=== PATIENT | female | born 1950 | race Caucasian/White ===

== ENCOUNTER → 2017-08-15 08:55 | Outpatient (CLI) | payer OTHER, SELFPAY ==
--- NOTE | 2017-08-15 09:01 | RAD_ITS ---
STUDY: X-RAY - RIGHT KNEE REASON FOR EXAM: Medial knee pain, no specific injury. TECHNIQUE: 4 view(s) of the knee. COMPARISON: None. FINDINGS: Normal visualized distal femur. Normal visualized proximal tibia and fibula. Normal proximal tibiofibular articulation. Normal medial femorotibial compartment. Normal lateral femorotibial compartment. Normal patellofemoral articulation. The soft tissue structures are unremarkable. RAD/Knee 4 or More Views IMPRESSION: Normal x-ray examination of the right knee. Electronically Signed: Mitul Veronica MD at 16:15 EDT Tel , Service support ,
== END ==
PROVIDERS: Family Provider Family Medicine; PCP Family Medicine; Visit Provider Orthopaedic Surgery
DX: M25.561 Pain in right knee (principal)
CPT/HCPCS: 73564

== ENCOUNTER → 2017-08-18 18:28 | Outpatient (CLI) | payer OTHER, SELFPAY ==
[2017-08-18 18:30] LABS: Bacteria 0 SEEN /hpf (None Seen); Mucous, Urine 0 SEEN /hpf (<or=2+)
[2017-08-18 19:10] LABS: Color, Urine Yellow (Yellow); Glucose, Dipstick Normal (Normal); Ketone-Dipstick Negative (Negative); Leukocyte Esterase-Dipstick 100 /ul (Negative); Nitrite-Dipstick Negative (Negative); Occult Blood-Urine 25 /ul (Negative); Protein-Dipstick Negative (Negative); Urine Bilirubin Dipstick Negative (Negative); Urine Clarity Clear (Clear); Urine Urobilinogen Normal (Normal)
[2017-08-18 19:21] LABS: White Blood Cells 10-25 SEEN /hpf (0-5)
[2017-08-18 19:22] LABS: Squamous Epithelial Cells - UA 0-5 SEEN /hpf (5-10)
== END ==
PROVIDERS: Family Provider Family Medicine; PCP Family Medicine; Visit Provider Physician Assistant Surgical
DX: R30.0 Dysuria (principal)
CPT/HCPCS: 81001; 87086; 87088; 87186

== ENCOUNTER → 2017-08-27 07:20 | Outpatient (CLI) | payer OTHER, SELFPAY ==
--- NOTE | 2017-08-27 07:24 | MRI_ITS ---
STUDY: MRI RIGHT KNEE REASON FOR EXAM: Medial pain on and off for 2 years, difficulty bending. TECHNIQUE: Standardized fat and water weighted pulse sequences were obtained in all 3 orthogonal planes. COMPARISON: Radiographs 08/15/2017. FINDINGS: Normal medial meniscus. Normal hyaline cartilage of the medial femorotibial compartment. Normal medial femoral condyle and tibial plateau. Normal medial collateral ligamentous complex (MCL). Normal distal semimembranosus, gracilis and semitendinosus tendons. Normal lateral meniscus. Normal hyaline cartilage of the lateral femorotibial compartment. Normal lateral femoral condyle and tibial plateau. Normal proximal tibiofibular articulation. Normal lateral collateral (fibular) ligament. Normal popliteus tendon. Normal biceps femoris tendon. Normal anterior cruciate ligament (ACL). Normal posterior cruciate ligament (PCL). Normal congruent patellofemoral articulation. There is low-grade chondromalacia patellae (T2 axial image 9). Normal medial and lateral patellar retinaculum. Normal visualized quadriceps tendon. Normal patellar tendon. Normal Hoffa's fat pad. There is a minimal volume of fluid in the knee joint. There is a thin medial patellar plica. There is an elongated popliteal cyst (T2 sagittal images 12-21). There is mild bone edema in the proximal tibia at the insertion site of the anterior cruciate ligament. MRI/Lower Ext Joint Only (Routine) IMPRESSION: Low-grade chondromalacia patellae. Popliteal cyst. No demonstrated medial meniscal tear. Electronically Signed: Mitul Veronica MD at 8:58 EDT Tel , Service support ,
== END ==
PROVIDERS: Family Provider Family Medicine; PCP Family Medicine; Visit Provider Orthopaedic Surgery
DX: S83.241A Other tear of medial meniscus, current injury, right knee, initial encounter (principal)
CPT/HCPCS: 73721

== ENCOUNTER → 2017-09-04 13:51 | Outpatient (CLI) | payer OTHER, SELFPAY ==
[2017-09-04 15:45] LABS: Absolute Neutrophil Count 1.5 X10^3/uL (2.0-7.7); Basophil# 0.03 X10^3/uL; Basophil% 0.7 % (0-1); Eosinophil# 0.06 X10^3/uL; Eosinophils% 1.4 % (0-5); Hematocrit 37.1 % (37-47); Hemoglobin 12.7 g/dl (12.0-15.0); Lymphocyte % 56.4 % (19-41); Mean Corp Hgb Conc 34.2 g/gl (32-36); Mean Corpuscular Hgb 28.9 pg (27.0-32.0); Mean Corpuscular Volume 84.5 fL (81-99); Mean Platelet Vol. 9.6 fl (6.2-12.0); Monocyte# 0.38 X10^3/uL; Monocyte% 8.6 % (0-10); Neutrophil # 1.45 X10^3/uL (2.7-7.7); Neutrophil % 32.7 % (47-70); Platelet Count 212 K/mm3 (150-450); RBC Distribution Width CV 13.8 % (11.6-14.6); RBC Distribution Width SD 42.2 fl (35.1-43.9); Red Blood Count 4.39 M/mm3 (4.2-5.4); White Blood Count 4.4 K/mm3 (4.4-11.0)
[2017-09-04 15:53] LABS: POSITIVE COUNT NO; POSITIVE DIFFERENTIAL NO; POSITIVE MORPHOLOGY NO
[2017-09-04 16:01] LABS: Ferritin 116 ng/mL (8-252)
[2017-09-09 11:04] LABS: Endomysial Antibody IgA Negative (Negative); Immunoglobulin A 233 mg/dL (87-352); t-Transglutaminase IgA <2 U/mL (0-3)
== END ==
PROVIDERS: Family Provider Family Medicine; PCP Family Medicine; Visit Provider Family Medicine
DX: R11.10 Vomiting, unspecified (principal)
CPT/HCPCS: 36415; 82728; 82784; 83516; 85025; 86255

== ENCOUNTER 2017-09-30 16:30 | Outpatient (RCR) | payer OTHER, SELFPAY ==
--- NOTE | 2017-09-10 17:00 | HP.PTEVAL_ITS ---
Patient's Visit Information ALIE SALMERON is a 67 year old F referred to Physical Therapy by Nayla Odom DO with a diagnosis of R knee chondromalcia/PF -OA. Date of Evaluation: 09/10/17 Physical Therapist: Cynthia Marte - Visit Plan Frequency: 2x /Week Duration: 6 Weeks Plan: 2X/ week for 6 weeks for R hip and knee strength, R knee AROM, US to R medial joint line to decrease pain and inflammation with HEP. Pt would eventually like to get a H&W routine for her knee..... - Subjective Subjective: Pt reports that when she went to the Dr she could not bend it and it was pain along the anterior medial part of the knee. Pt got a cortizone shot in the R knee last week. She reports that she had some pain along the underside of the knee cap today. She did x-ray (no arthritis) and MRI (bakers cyst and wear under knee cap). saw a black spot the size of an eraser that she is thinking could be a tear that is healed. 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 She does some floor stuff, biking, wood chopping, pull downs. Going to try leg press on Friday and she does the abd/add machines and sometimes the TM. The R knee becomes aggrevated with the TM and walking the dog, gas pedel. Pt is taking a long bike ride (340 miles about 40 miles/day over 8 days) this summer and she wants to strenghen. The shot has def has helped. - Pain R knee pain Pain Intensity (Out of 10): 1 - Objective Gait: walks with slight decrease stance time on the L LE. R knee AROM: -1 degree to 121 degrees. L knee AROM: 0-134 degrees. LE MMT: hip flex B 4-/5, hip abd R 4-/5 and L 4/5, hip ext B 4-/5, knee flexion 4-/5, knee ext R 4-/5 and L 4/5. Tight B Quad with R being worse than L. palpation: tender along the R medial joint line. No tenderness pes ans area. - Goals Goal 1:: I HEP Goal Time Frame: 4-6 Weeks Goal 2:: Increase R knee AROM 0- 130 degrees knee flexion Goal Time Frame: 4-6 Weeks Goal 3:: Increase R hip and knee strength by 1/2 muscle grade (LE MMT at time of eval: LE MMT: hip flex B 4-/5, hip abd R 4-/5 and L 4/5, hip ext B 4-/5, knee flexion 4-/5, knee ext R 4-/5 and L 4/5) Goal Time Frame: 4-6 Weeks - Rehabilitation Potential Rehabilitation Potential: Good - Anticipated Interventions Patient/Client Instruction: Educate patient on: Condition, Plan of Care For the Purpose of:: To decrease pain, To decrease swelling/inflammation, To increase ROM, To improve nutrient delivery to tissue, To improve muscle performance and motor function, To improve ability to perform ADL's, To increase tolerance to activity/condition/position, To improve performance and independence with ADL's, To improve ability of physical actions for home/ community/work/leisure, To improve gait and locomotor functions, To improve health of tissue, To decrease soft tissue restriction, To increase flexibility/ ROM Therapeutic Exercise to Include: Strength training, Flexibilty training, Gait and locomotor training, Passive ROM, Active ROM For the Purpose of:: To decrease pain, To decrease swelling/inflammation, To increase ROM, To improve nutrient delivery to tissue, To improve muscle performance and motor function, To increase tolerance to activity/condition/ position, To improve gait and locomotor functions, To improve health of tissue, To decrease soft tissue restriction, To increase flexibility/ROM Cryotherapy (ice pack, ice massage): Yes Thermo therapy (hot pack): Yes Ultrasound (thermal/non thermal): Yes For the Purpose of:: To decrease pain, To decrease swelling/inflammation, To increase ROM, To improve nutrient delivery to tissue, To improve muscle performance and motor function, To increase tolerance to activity/condition/ position, To improve health of tissue, To decrease soft tissue restriction, To increase flexibility/ROM Thank you for the opportunity to evaluate your patient. For Medicare and Medicare HMO plans, please review the plan of care and approve it. It will need to be FAXED BACK to us at [phone] for Medicare purposes. Please let me know if there are questions or concerns regarding this plan of care. Physician Signature: Date:
--- NOTE | 2017-09-30 17:30 | HP.PTDCSUM_ITS ---
HP - PT D/C Summary It has been my pleasure to treat ALIE SALMERON under orders from Nayla Odom DO, for the diagnosis of R knee chondromalcia/PF -OA for a total of 6 visit(s). Discharge Date: 09/30/17 Please see the following information for a summary of their discharge status. - Subjective Subjective: Sitting here there is no pain. Rode bike 7 miles yesterday and pushed it and was not too bad afterwards. - Pain R knee pain Pain Intensity (Out of 10): N/A - Overall Improvement % Improvement: 90 - Objective Objective/Function: 0-131 degrees R knee flexion - Goals Goal 1:: I HEP Goal Progress: Goal Met Goal 2:: Increase R knee AROM 0- 130 degrees knee flexion Goal Progress: Goal Met Goal 3:: Increase R hip and knee strength by 1/2 muscle grade (LE MMT at time of eval: LE MMT: hip flex B 4-/5, hip abd R 4-/5 and L 4/5, hip ext B 4-/5, knee flexion 4-/5, knee ext R 4-/5 and L 4/5) Goal Progress: Goal Met - Plan Plan: DC PT to [facility] and some H&W gym rountine. Pt to continue to train on her bike and work up to desired miles, - D/C Information Discharge Comments: DC PT to [facility] and I H&W [employer] rountine If there are questions or concerns regarding this patient's physical therapy, please feel free to call me at [phone]. Thank you for the referral of this patient. Sincerely, Cynthia Marte
== END 2017-09-30 19:00 | disposition home or self-care (01) ==
LOC: PT 16:30
PROVIDERS: Family Provider Family Medicine; PCP Family Medicine; Visit Provider Orthopaedic Surgery
DX: M94.261 Chondromalacia, right knee (principal); M17.11 Unilateral primary osteoarthritis, right knee
CPT/HCPCS: 97035; 97110; 97161; 97530

== ENCOUNTER → 2017-12-02 12:27 | Outpatient (CLI) | payer OTHER, SELFPAY ==
--- NOTE | 2017-12-02 12:29 | BI_ITS ---
MAMMOGRAPHY - BILATERAL SCREENING REASON FOR EXAM: Female, 67 years old. Routine annual screening examination. PERTINENT HISTORY: Aunt with breast cancer. Occasional right lateral breast pain. TECHNIQUE: Digital bilateral breast lissa (3D mammographic acquisition) in the CC and MLO projections. 2-D mediolateral oblique (MLO) and craniocaudad (CC) views of both breasts were obtained. CAD: Full Field Digital Mammography with Computer Added Detection was performed. COMPARISON: Comparison is made with prior study dated September 17, 2016 and January 20, 2014. FINDINGS: Breast Composition: The breasts are heterogeneously dense, which may obscure small masses. There are no dominant masses or suspicious calcifications. A tissue clip marker is seen in the upper lateral portion of the left breast. No other significant abnormalities are identified. There has been no significant change since the prior study. BI/SCREENING MAMM (CAD), BILAT IMPRESSION: Stable bilateral screening mammogram. Yearly follow-up mammogram recommended. (A) ASSESSMENT CATEGORY: BIRADS Category 2: Benign. A letter regarding these results will be sent to the patient by the facility within 30 days. Approximately 10% of breast cancers are not detected by mammography. A normal mammogram should not delay biopsy of a clinically suspicious abnormality. [id number] Electronically Signed: Lewis Huerta MD at 14:43 EDT Tel [phone], Service support ,
--- NOTE | 2017-12-02 12:34 | BD_ITS ---
STUDY: DUAL ENERGY X-RAY ABSORPTIOMETRY / DXA REASON FOR EXAM: Female, 67 years old. The patient is postmenopausal. No loss of height. TECHNIQUE: Bone Mineral Density (BMD) measurements of lumbar spine and bilateral hips were obtained. COMPARISON: Comparison is made with prior examination dated November 19, 2010. FINDINGS: Lumbar Spine (L1-L4): g/cm2 (1.124) / T-score (-0.5) / Z-score (1.2) Findings are suggestive of normal bone density with a low fracture risk. Left Femur Total: g/cm2 (0.972) / T-score (-0.3) / Z-score (1.1) Left Femoral Neck: g/cm2 (0.902) / T-score (-1.0) / Z-score (0.0) Right Femur Total: g/cm2 (0.944) / T-score (-0.5) / Z-score (0.9) Right Femoral Neck: g/cm2 (0.923) / T-score (-0.8) / Z-score (0.8) The T-Scores on the most recent prior examination were: Lumbar Spine (L1-L4): There has been worsening of bone density since the previous examination. Left Femur Total: which represents a worsening of 10.9 %. Right Femur Total: which represents a worsening of 9.5%. BD/Dexa Bone Density Study IMPRESSION: The patient is considered normal as outlined below according to World Serge Organization (WHO) criteria with a low fracture risk. There has been worsening of bone density since the previous examination. Reference Information: The T-score is the number of standard deviations above or below the standard which is normal for young adults at their peak bone mineral density. The World Health Organization (WHO) interprets the T-scores as follows: Above -1 Normal bone density Between -1 and -2.5 Osteopenia Equal to / or below -2.5 Osteoporosis As a practical clinical guideline, osteopenia may be graded as follows: Mild -1 through -1.5 Moderate -1.6 through -2.0 Severe -2.1 through -2.4 The Z-score is the number of standard deviations above or below age-matched controls. A Z-score of less than -1.5 would be considered abnormal. References: 1. NIH Osteoporosis and Related Bone Diseases http://www.osteo.org 2. International Society for Clinical Densitometry http://www.iscd.org 3. National Osteoporosis Foundation http://www.nof.org Electronically Signed: Lewis Huerta MD at 15:40 EDT Tel [phone], Service support ,
== END ==
PROVIDERS: Family Provider Family Medicine; PCP Family Medicine; Visit Provider Obstetrics & Gynecology
DX: Z78.0 Asymptomatic menopausal state (principal); Z12.31 Encounter for screening mammogram for malignant neoplasm of breast
CPT/HCPCS: 77063; 77067; 77080

== ENCOUNTER → 2018-12-26 | Outpatient (CLI) | payer OTHER, SELFPAY ==
[2018-12-25 17:54] VITALS: BMI 26.7
[2018-12-26 14:20] LABS: Mucous, Urine 0 SEEN /hpf (<or=2+); Red Blood Cells-Urine 0 SEEN /hpf (0-5); Squamous Epithelial Cells - UA 0 SEEN /hpf (5-10)
[2018-12-26 14:33] LABS: Color, Urine Yellow (Yellow); Glucose, Dipstick Normal (Normal); Ketone-Dipstick Negative (Negative); Leukocyte Esterase-Dipstick 500 /ul (Negative); Nitrite-Dipstick Positive (Negative); Occult Blood-Urine 10 /ul (Negative); Protein-Dipstick Negative (Negative); Specific Gravity, Urine 1.015 (1.002-1.030); Urine Clarity Clear (Clear); Urine Urobilinogen 8 mg/dl (Normal); Urine pH 6.5 (5.0 - 8.0)
[2018-12-26 14:35] LABS: Urine Bilirubin Dipstick 3 mg/dL (Negative)
[2018-12-26 14:40] LABS: Bacteria 1+ /hpf (None Seen); Calcium Oxalate Crystals Ur 1+ /hpf (<or=2+); White Blood Cells 5-10 SEEN /hpf (0-5)
== END | disposition home or self-care (01) ==
PROVIDERS: Family Provider Family Medicine; PCP Family Medicine; Referring Provider Physician Assistant Surgical; Visit Provider Physician Assistant Surgical
DX: R30.0 Dysuria (principal)
CPT/HCPCS: 81001; 87086; 87088; 87186

== ENCOUNTER → 2019-01-12 16:45 | Outpatient (CLI) | payer OTHER, SELFPAY ==
[2018-12-25 17:54] VITALS: BMI 26.7
--- NOTE | 2019-01-12 16:51 | BI_ITS ---
MAMMOGRAPHY - BILATERAL SCREENING REASON FOR EXAM: Female, 68 years old. Routine annual screening examination. PERTINENT HISTORY: Aunt with breast cancer. Remote left stereotactic breast biopsy. TECHNIQUE: Digital bilateral breast anil (3D mammographic acquisition) in the CC and MLO projections. 2-D mediolateral oblique (MLO) and craniocaudad (CC) views of both breasts were obtained. CAD: Full Field Digital Mammography with Computer Added Detection was performed. COMPARISON: Comparison is made with prior study dated December 02, 2017 and September 17, 2016. FINDINGS: Breast Composition: The breasts are heterogeneously dense, which may obscure small masses. There are no dominant masses or suspicious calcifications. A tissue clip marker is seen in the upper lateral aspect of the left breast. This is unchanged. No other significant abnormalities are identified. There has been no significant change since the prior study. BI/SCREEN MAMM (CAD) W/ANIL BILAT IMPRESSION: Stable bilateral screening mammogram. Yearly follow-up mammogram recommended. (A) ASSESSMENT CATEGORY: BIRADS Category 2: Benign. A letter regarding these results will be sent to the patient by the facility within 30 days. Approximately 10% of breast cancers are not detected by mammography. A normal mammogram should not delay biopsy of a clinically suspicious abnormality. [id number] Electronically Signed: Lewis Huerta, at 8:52 EDT , Service support ,
== END ==
PROVIDERS: Family Provider Family Medicine; PCP Family Medicine; Referring Provider Obstetrics & Gynecology; Visit Provider Obstetrics & Gynecology
DX: Z12.31 Encounter for screening mammogram for malignant neoplasm of breast (principal)
CPT/HCPCS: 77063; 77067

== ENCOUNTER → 2019-03-25 | Outpatient (CLI) | payer OTHER, SELFPAY ==
[2019-03-25 09:04] VITALS: BMI 26.7
--- NOTE | 2019-03-25 09:08 | RAD_ITS ---
STUDY: X-RAY - LEFT SHOULDER REASON FOR EXAM: Female, 68 years old. Pain radiating into neck TECHNIQUE: 3 view(s) of the shoulder. COMPARISON: None. FINDINGS: Normal glenohumeral articulation. Normal acromioclavicular joint. Normal acromion. Normal humeral head and visualized proximal humerus. The soft tissue structures are unremarkable. Normal visualized pulmonary apex. RAD/Shoulder min 2 Views IMPRESSION: Normal x-ray examination of the shoulder. Electronically Signed: Shad Rene MD at 23:04 EDT , Service support ,
--- NOTE | 2019-03-25 09:08 | RAD_ITS ---
STUDY: X-RAY - CERVICAL SPINE REASON FOR EXAM: Female, 68 years old. Left shoulder and neck pain TECHNIQUE: 5 view(s) of the cervical spine were obtained. COMPARISON: None FINDINGS: Normal anterior atlantoaxial articulation. Normal odontoid process. Normal cervical lordosis. There is endplate spondylosis of C5-C7. There is severe narrowing of the C5-6 and C6-7 disc spaces. There is multi-level osseous foraminal stenosis. The soft tissue structures are unremarkable. RAD/Cerv Spine 4 or 5 Views IMPRESSION: Cervical degenerative changes as detailed above. Electronically Signed: Shad Rene MD at 22:52 EDT , Service support ,
== END | disposition home or self-care (01) ==
LOC: HPRAD 09:07
PROVIDERS: Family Provider Family Medicine; PCP Family Medicine; Referring Provider Physician Assistant; Visit Provider Physician Assistant
DX: M25.512 Pain in left shoulder (principal)
CPT/HCPCS: 72050; 73030

== ENCOUNTER 2019-05-04 07:30 | Outpatient (RCR) | payer MEDICARE, BC, SELFPAY ==
[2019-03-25 09:04] VITALS: BMI 26.7
--- NOTE | 2019-04-02 10:15 | HP.PTEVAL_ITS ---
Patient's Visit Information ALIE SALMERON is a 69 year old F referred to Physical Therapy by VICKY Geller with a diagnosis of LEFT SHOULDER ROTATOR CUFF IMGINGEMENT. Date of Evaluation: 04/02/19 Physical Therapist: Taiwo Benton, PT, Cert MDT, OCS - Visit Plan Frequency: 2x /Week Duration: 4 Weeks Plan: PT INTERVENTIONS INTIALLY US/ESTIM/CP ,RTC/SCAPULAR ,POSTURAL EX'S,MANUAL THERAPY SHOULDER - Subjective Findings: This 69 y/o female presents to physical therapy with left shoulder pain.Patient injuried left shoulder while biking fell on left side caused shoulder pain December 13 went to ER x-rays -. Then 3 weeks ago working at home noticed more pain. Patient went to [facility] ,did cortizone injecion injection which helped pain. Location of pain global left shoulder to UT described as ache. Patient pain worse with activities above 90 degrees with self hygine,housework tasks . Patient denies parathesia/tingling. Patient pain affects sleeping. Patient pain affercts QOL and function. Patient has membership at [employer] . SOCIAL: . VOCATION: retired - Pain Left Shoulder Pain Intensity (Out of 10): 3 Pain Intensity Range: 10 - Objective POSTURE: mild foward posture,rounded shoulder. PALPATION: tender AC,coracoid/UT/levator. NEURO: denies parathesia/tingling,. AROM: shoulder flexion 100 degrres,abduction 120 degrees pain ,ER 90 ,IR 60 degrees pain. PROM: shoulder flexion 150 degrees,abduction 150 degrees. MMT: infraspinatous/subscapularis 4/5,supraspinatous 4-/5,deltoid 3+/5 pain. CERVICAL ROM: flexion min loss ,lateral flexion,rotation mod loss pain left - Special Tests C/S Radiculapathy - Left Upper limb tension test: Negative C/S Radiculapathy - Right Upper limb tension test: Negative C/S Radiculapathy - Left Spurlings: Positive C/S Radiculapathy - Right Spurlings: Negative R Shoulder Drop Sign - IS Test: Negative R Shoulder Empty Can - SS: Positive R Shoulder Neer - Impingement: Positive R Shoulder Bhat Jose - Impingement: Positive - Goals Goal 1:: Independant with HEP Goal Time Frame: 4-6 Weeks Goal 2:: Improve posture for ADL'S Goal Time Frame: 4-6 Weeks Goal 3:: Increase AROM left shoulder symmtrically to right to improve function with OH activities. Goal Time Frame: 4-6 Weeks Goal 4:: Patient to increase strength left shoulder 4/5 to improve function with ADL'S Goal Time Frame: 4-6 Weeks Goal 5:: Patient decrease pain left shoulder by 50% or > to improve FUNCTION. Goal Time Frame: 4-6 Weeks Goal 6:: Patient to improve dash quick by 5 ints or> to improve QOL. Goal Time Frame: 4-6 Weeks - Rehabilitation Potential Physical Therapy Diagnosis: This 69 y/o female presents to PT with right shoulder impingement with weakness pain ,cerviacl ROM to left pain in UT,decrease ROM shoulder impairs ADL'S and housework tasks aboVe 90 degrees Rehabilitation Potential: Good - Anticipated Interventions Thank you for the opportunity to evaluate your patient. For Medicare and Medicare HMO plans, please review the plan of care and approve it. It will need to be FAXED BACK to us at [phone] for Medicare purposes. For Medicare only, by signing this I certify the plan of care. Please let me know if there are questions or concerns regarding this plan of care. Physician Signature: Date:
--- NOTE | 2019-05-04 09:01 | HP.PTEVAL_ITS ---
Patient's Visit Information ALIE SALMERON is a 69 year old F referred to Physical Therapy by VICKY Geller with a diagnosis of LEFT SHOULDER ROTATOR CUFF IMGINGEMENT. Date of Evaluation: 04/02/19 Physical Therapist: Taiwo Benton PT, Cert MDT, OCS - Visit Plan Frequency: 2x /Week Duration: 4 Weeks Plan: D/C TO HEP AND GYM PROGRAM - Subjective Findings: This 69 y/o female presents to physical therapy with left shoulder pain.Patient injuried left shoulder while biking fell on left side caused shoulder pain December 13 went to ER x-rays -. Then 3 weeks ago working at home noticed more pain. Patient went to [facility] ,did cortizone injecion injection which helped pain. Location of pain global left shoulder to UT described as ache. Patient pain worse with activities above 90 degrees with self hygine,housework tasks . Patient denies parathesia/tingling. Patient pain affects sleeping. Patient pain affercts QOL and function. Patient has membership at . SOCIAL: . VOCATION: retired - Pain Left Shoulder Pain Intensity (Out of 10): 0 Pain Intensity Range: 10 Comment: tired - Objective POSTURE: mild foward posture,rounded shoulder. PALPATION: tender AC,coracoid/UT/levator. NEURO: denies parathesia/tingling,. AROM: shoulder flexion 100 degrres,abduction 120 degrees pain ,ER 90 ,IR 60 degrees pain. PROM: shoulder flexion 150 degrees,abduction 150 degrees. MMT: infraspinatous/subscapularis 4/5,supraspinatous 4-/5,deltoid 3+/5 pain. CERVICAL ROM: flexion min loss ,lateral flexion,rotation mod loss pain left - Special Tests C/S Radiculapathy - Left Upper limb tension test: Negative C/S Radiculapathy - Right Upper limb tension test: Negative C/S Radiculapathy - Left Spurlings: Positive C/S Radiculapathy - Right Spurlings: Negative R Shoulder Drop Sign - IS Test: Negative R Shoulder Empty Can - SS: Positive R Shoulder Neer - Impingement: Positive R Shoulder Bhat Jose - Impingement: Positive - Goals Goal 1:: Independant with HEP Goal Time Frame: 4-6 Weeks Goal 2:: Improve posture for ADL'S Goal Time Frame: 4-6 Weeks Goal 3:: Increase AROM left shoulder symmtrically to right to improve function with OH activities. Goal Time Frame: 4-6 Weeks Goal 4:: Patient to increase strength left shoulder 4/5 to improve function with ADL'S Goal Time Frame: 4-6 Weeks Goal 5:: Patient decrease pain left shoulder by 50% or > to improve FUNCTION. Goal Time Frame: 4-6 Weeks Goal 6:: Patient to improve dash quick by 5 ints or> to improve QOL. Goal Time Frame: 4-6 Weeks - Rehabilitation Potential Physical Therapy Diagnosis: This 69 y/o female presents to PT with right shoulder impingement with weakness pain ,cerviacl ROM to left pain in UT,decrease ROM shoulder impairs ADL'S and housework tasks aboVe 90 degrees Rehabilitation Potential: Good - Anticipated Interventions Thank you for the opportunity to evaluate your patient. For Medicare and Medicare HMO plans, please review the plan of care and approve it. It will need to be FAXED BACK to us at [phone] for Medicare purposes. For Medicare only, by signing this I certify the plan of care. Please let me know if there are questions or concerns regarding this plan of care. Physician Signature: Date:
--- NOTE | 2019-05-05 17:04 | HP.PTDCSUM ---
HP - PT D/C Summary It has been my pleasure to treat ALIE SALMERON under orders from VICKY Geller, for the diagnosis of LEFT SHOULDER ROTATOR CUFF IMGINGEMENT for a total of 9 visit(s). Discharge Date: Please see the following information for a summary of their discharge status. - Subjective Subjective: Doing well.. return to working out and all ADLS - Pain Left Shoulder Pain Intensity (Out of 10): 0 - Overall Improvement % Improvement: 90 - Objective Objective/Function: AROM: flexion /abd 160 degrees,ER 90 degrees. MMT: RTC 4/5 ,DELTOID 4/5 - Goals Goal 1:: Independant with HEP Goal Progress: Goal Met Goal 2:: Improve posture for ADL'S Goal Progress: Goal Met Goal 3:: Increase AROM left shoulder symmtrically to right to improve function with OH activities. Goal Progress: Goal Met Goal 4:: Patient to increase strength left shoulder 4/5 to improve function with ADL'S Goal Progress: Goal Met Goal 5:: Patient decrease pain left shoulder by 50% or > to improve FUNCTION. Goal Progress: Goal Met Goal 6:: Patient to improve dash quick by 5 ints or> to improve QOL. Goal Progress: Goal Met - Plan Plan: D/C TO HEP AND GYM PROGRAM - D/C Information If there are questions or concerns regarding this patient's physical therapy, please feel free to call me at [phone]. Thank you for the referral of this patient. Sincerely, Taiwo Benton, PT, Cert MDT, OCS
== END 2019-05-04 19:00 | disposition home or self-care (01) ==
LOC: PT 07:30
PROVIDERS: Family Provider Family Medicine; PCP Family Medicine; Referring Provider Physician Assistant; Visit Provider Physician Assistant
DX: M75.42 Impingement syndrome of left shoulder (principal)
CPT/HCPCS: 97035; 97110; 97162

== ENCOUNTER → 2019-11-30 | Outpatient (CLI) | payer MEDICARE, BC, SELFPAY ==
[2019-03-25 09:04] VITALS: BMI 26.7
[2019-11-30 07:34] LABS: Absolute Lymphocyte Count 2.72 X10^3/uL (0.83-4.51); Absolute Neutrophil Count 0.8 X10^3/uL (2.0-7.7); Basophil# 0.04 X10^3/uL; Eosinophil# 0.05 X10^3/uL; Eosinophils% 1.2 % (0-5); Lymphocyte # 2.72 X10^3/ul (4.0); Mean Corp Hgb Conc 32.5 g/dL (32-36); Mean Corpuscular Hgb 29.2 pg (27.0-32.0); Mean Corpuscular Volume 89.9 fL (81-99); Monocyte# 0.43 X10^3/uL; Monocyte% 10.6 % (0-10); NRBC Flagged by Analyzer 0 % (0-5); Neutrophil # 0.81 X10^3/uL (2.7-7.7); POSITIVE DIFFERENTIAL YES; Platelet Count 208 K/mm3 (150-450); RBC Distribution Width CV 13.6 % (11.6-14.6); RBC Distribution Width SD 44.4 fl (35.1-43.9); Red Blood Count 4.45 M/mm3 (4.2-5.4); White Blood Count 4.1 K/mm3 (4.4-11.0)
[2019-11-30 07:37] LABS: Differential Indicated SCAN CRITERIA MET
[2019-11-30 07:55] LABS: AST(SGOT) 50 U/L (15-37); Alanine Aminotransfer ALT/SGPT 59 U/L (13-56); Albumin, Serum 3.8 g/dL (3.2-5.0); Alkaline Phosphatase 59 U/L (45-117); Amylase 56 U/L (25-115); Anion Gap 6 (5-15); BUN 20 mg/dL (7-18); BUN/Creat Ratio 28.1 RATIO (10-20); Calcium,Total 8.6 mg/dL (8.5-10.1); Chloride 102 mmol/L (98-107); Creatinine, Serum 0.71 mg/dL (0.55-1.02); EST Glomerular Filtration Rate 86 mL/min (>60); Est Glom Filt Rate - Afr Amer 104 mL/min (>60); Glucose 87 mg/dL (74-106); Lipase 158 U/L (73-393); Potassium 4.2 mmol/L (3.5-5.1); Protein, Total 7.8 g/dL (6.4-8.2); Sodium Level 137 mmol/L (136-145)
== END | disposition home or self-care (01) ==
LOC: LAB 06:13
PROVIDERS: PCP Family Medicine
DX: R11.2 Nausea with vomiting, unspecified (principal)
CPT/HCPCS: 80053; 82150; 83690; 85025

== ENCOUNTER → 2019-12-08 | Outpatient (CLI) | payer MEDICARE, BC, SELFPAY ==
[2019-03-25 09:04] VITALS: BMI 26.7
--- NOTE | 2019-12-08 09:12 | US_ITS ---
STUDY: ABDOMINAL ULTRASOUND - RIGHT UPPER QUADRANT REASON FOR VISIT: Female, 69 years old N/V TECHNIQUE: Ultrasound evaluation of the right upper quadrant was performed with real-time and static huddleston-scale imaging. TECHNICAL QUALITY: Adequate. COMPARISON: None. FINDINGS: Liver: The liver measures 16.6 cm. There is normal echogenicity of the liver. The bile ducts are within normal limits. There is hepatic color flow. The direction of portal flow is hepatopetal. There is no demonstrated mass lesion. Gallbladder: Normal distended gallbladder. The gallbladder wall measures 3.0 mm. There is a negative sonographic Lewis''s sign. There is no pericholecystic fluid. There are no gallstones. Common Bile Duct (C.B.D.): The common bile duct measures 3.0 mm. Pancreas: Normal size of the head, body and tail of the pancreas. There is normal echogenicity of the pancreas. There is no demonstrated pancreatic mass or cyst. Right Kidney: Normal size of the right kidney. The right kidney measures 11.5 cm x 5.5 cm x 4.9 cm. Normal renal cortex. The right cortex measures 1.3 cm. There is no demonstrated renal mass or cyst. There is no right hydronephrosis. US/Gallbladder IMPRESSION: Normal right upper quadrant ultrasound examination. Electronically Signed: Lewis Huerta, at 10:49 EDT , Service support ,
== END | disposition home or self-care (01) ==
PROVIDERS: PCP Family Medicine
DX: R11.2 Nausea with vomiting, unspecified (principal)
CPT/HCPCS: 76705

== ENCOUNTER → 2020-01-25 | Outpatient (CLI) | payer MEDICARE, BC, SELFPAY ==
[2019-03-25 09:04] VITALS: BMI 26.7
[2020-01-25 15:11] LABS: AST(SGOT) 44 U/L (15-37); Alanine Aminotransfer ALT/SGPT 55 U/L (13-56); Albumin, Serum 3.7 g/dL (3.2-5.0); Alkaline Phosphatase 68 U/L (45-117); Bilirubin, Direct 0.13 mg/dL (0.00-0.30); Globulin 3.8 g/dL (2.2-4.2); Protein, Total 7.5 g/dL (6.4-8.2)
== END | disposition home or self-care (01) ==
LOC: LAB 13:30
PROVIDERS: PCP Family Medicine
DX: R74.8 Abnormal levels of other serum enzymes (principal)
CPT/HCPCS: 36415; 80076

== ENCOUNTER → 2020-01-29 | Outpatient (CLI) | payer MEDICARE, BC, SELFPAY ==
[2019-03-25 09:04] VITALS: BMI 26.7
[2020-01-29 08:44] LABS: AST(SGOT) 40 U/L (15-37); Alanine Aminotransfer ALT/SGPT 48 U/L (13-56); Albumin, Serum 3.8 g/dL (3.2-5.0); Alkaline Phosphatase 65 U/L (45-117); Amylase 61 U/L (25-115); Bilirubin, Direct 0.13 mg/dL (0.00-0.30); Globulin 3.9 g/dL (2.2-4.2); Lipase 138 U/L (73-393); Protein, Total 7.7 g/dL (6.4-8.2)
== END | disposition home or self-care (01) ==
LOC: LAB 07:09
PROVIDERS: PCP Family Medicine
DX: R11.2 Nausea with vomiting, unspecified (principal)
CPT/HCPCS: 36415; 80076; 82150; 83690

== ENCOUNTER → 2020-02-03 | Outpatient (CLI) | payer MEDICARE, BC, SELFPAY ==
[2019-03-25 09:04] VITALS: BMI 26.7
--- NOTE | 2020-02-03 12:27 | BI_ITS ---
MAMMOGRAPHY - BILATERAL SCREENING REASON FOR EXAM: Female, 69 years old. Routine annual screening examination. PERTINENT HISTORY: Aunt with breast cancer. Minimal left stereotactic breast biopsy. TECHNIQUE: Digital bilateral breast anil (3D mammographic acquisition) in the CC and MLO projections. 2-D mediolateral oblique (MLO) and craniocaudad (CC) views of both breasts were obtained. CAD: Full Field Digital Mammography with Computer Added Detection was performed. COMPARISON: Comparison is made with prior study dated 01/12/2019 and 12/02/2017. FINDINGS: Breast Composition: The breasts are heterogeneously dense, which may obscure small masses. There are no dominant masses or suspicious calcifications. A tissue clip marker is once again seen in the upper lateral aspect of the left breast. No other significant abnormalities are identified. There has been no significant change since the prior study. BI/SCREEN MAMM (CAD) W/ANIL BILAT IMPRESSION: Stable bilateral screening mammogram. Yearly follow-up mammogram recommended. (A) ASSESSMENT CATEGORY: BIRADS Category 1: Negative. A letter regarding these results will be sent to the patient by the facility within 30 days. Approximately 10% of breast cancers are not detected by mammography. A normal mammogram should not delay biopsy of a clinically suspicious abnormality. [id number] Electronically Signed: Lewis Huerta, at 14:11 EDT , Service support ,
--- NOTE | 2020-02-03 12:28 | BD_ITS ---
STUDY: DUAL ENERGY X-RAY ABSORPTIOMETRY / DXA REASON FOR EXAM: Female, 69 years old. Age of priscilla 55. Pat is 114.1# and 62 and quot; a loss of 1 and quot; per patient. Past hx of taking an HRT for a short time. Takes a multi-vit. Exercises a lot. Hx of a right wrist fx. TECHNIQUE: Bone Mineral Density (BMD) measurements of lumbar spine and bilateral hips were obtained. COMPARISON: Comparison is made with prior study dated 12/02/2017. FINDINGS: Lumbar Spine (L1-L4): g/cm2 (1.095) / T-score (-0.7) / Z-score (1.0) Findings are suggestive of normal bone density with a low fracture risk. Increased thoracic kyphosis. Left Femur Total: g/cm2 (0.946) / T-score (-0.5) / Z-score (1.0) Left Femoral Neck: g/cm2 (0.910) / T-score (-0.9) / Z-score (0.8) Right Femur Total: g/cm2 (0.915) / T-score (-0.7) / Z-score (0.8) Right Femoral Neck: g/cm2 (0.922) / T-score (-0.8) / Z-score (0.9) The T-Scores on the most recent prior examination were: Lumbar Spine (L1-L4): There has been worsening of bone density since the previous examination. Left Femur Total: which represents a worsening of 2.7%. Right Femur Total: which represents a worsening of 3.1%. BD/Dexa Bone Density Study IMPRESSION: The patient is considered normal as outlined below according to World Serge Organization (WHO) criteria with a low fracture risk. There has been worsening of bone density since the previous examination. Reference Information: The T-score is the number of standard deviations above or below the standard which is normal for young adults at their peak bone mineral density. The World Health Organization (WHO) interprets the T-scores as follows: Above -1 Normal bone density Between -1 and -2.5 Osteopenia Equal to / or below -2.5 Osteoporosis As a practical clinical guideline, osteopenia may be graded as follows: Mild -1 through -1.5 Moderate -1.6 through -2.0 Severe -2.1 through -2.4 The Z-score is the number of standard deviations above or below age-matched controls. A Z-score of less than -1.5 would be considered abnormal. References: 1. NIH Osteoporosis and Related Bone Diseases http://www.osteo.org 2. International Society for Clinical Densitometry http://www.iscd.org 3. National Osteoporosis Foundation http://www.nof.org Electronically Signed: Lewis Huerta, at 14:41 EDT , Service support ,
== END | disposition home or self-care (01) ==
LOC: OPBD 12:25
PROVIDERS: PCP Family Medicine; Referring Provider Family Medicine; Visit Provider Family Medicine
DX: Z12.31 Encounter for screening mammogram for malignant neoplasm of breast (principal); Z78.0 Asymptomatic menopausal state; Z13.820 Encounter for screening for osteoporosis
CPT/HCPCS: 77063; 77067; 77080

== ENCOUNTER 2021-04-16 17:23 | Outpatient (CLI) | payer MEDICARE, BC, SELFPAY ==
[2021-04-16] MEDS: 0.9% Saline Lock 10 ML Syringe IV (17:42)
[2021-04-16 17:58] VITALS: BP 117/55; PULSE 75; RESP 16; TEMP 36.7; O2SAT 98; BMI 23.8
[2021-04-16 18:48] VITALS: BP 113/65; PULSE 66; RESP 16; TEMP 37.5; O2SAT 98
[2021-04-16 19:45] VITALS: BP 110/62; PULSE 67; RESP 18; TEMP 37.3; O2SAT 99
== END 2021-04-16 19:48 | disposition home or self-care (01) ==
LOC: MS3OUT 17:23 → MS3 17:24
PROVIDERS: PCP Family Medicine; Referring Provider Nurse Practitioner Adult Health; Visit Provider Nurse Practitioner Adult Health
DX: Z23 Encounter for immunization (principal); U07.1 COVID-19
CPT/HCPCS: J7050; M0245; Q0245; A4216

== ENCOUNTER → 2022-02-13 | Outpatient (CLI) | payer MEDICARE, SELFPAY ==
--- NOTE | 2022-02-13 15:31 | VDLE_ITS ---
Reason For Study: LLE PAIN RIGHT LEFT CFV is compressible, spontaneous, phasic, GSV is normal. competent and demonstrates normal CFV is compressible, spontaneous, phasic, augmentation. competent, and demonstrates normal Procedure augmentation. This is a venous duplex using B-mode, color FV is compressible, spontaneous, phasic, flow and spectral Doppler. competent and demonstrates normal Exam performed in department. augmentation. The exam was diagnostic. POP V is compressible, spontaneous, phasic, A preliminary report was called and/or faxed competent and demonstrates normal to Dr. Rodas @ [phone] @ 4:10 pm. augmentation. T/P Trunk is compressible. PTV is compressible. LT PerV is compressible. VL/Venous Duplex US, Unilateral Interpretation Summary Deep veins of the left lower extremity are patent and compressible segmentally. There is no evidence of left lower extremity deep vein thrombosis. Valvular competence appears intac t within the proximal deep venous system on the left . The left great saphenous vein appears patent a nd compressible segmentally. Ordering Physician: Radha Rodas Referring Physician: Radha Rodas Performed By: Dianne Goodwin, RDCS, RVT
[2022-02-13 17:29] LABS: AST(SGOT) 39 U/L (15-37); Alanine Aminotransfer ALT/SGPT 41 U/L (13-56); Albumin, Serum 3.9 g/dL (3.2-5.0); Alkaline Phosphatase 92 U/L (45-117); Anion Gap 7 (5-15); BUN 24 mg/dL (7-18); BUN/Creat Ratio 20.2 RATIO (10-20); Calcium,Total 9.1 mg/dL (8.5-10.1); Chloride 100 mmol/L (98-107); Creatinine, Serum 1.19 mg/dL (0.55-1.02); EST Glomerular Filtration Rate 47 mL/min (>60); Est Glom Filt Rate - Afr Amer 57 mL/min (>60); Globulin 4.1 g/dL (2.2-4.2); Glucose 89 mg/dL (74-106); Magnesium 2.3 mg/dL (1.6-2.6); Potassium 3.6 mmol/L (3.5-5.1); Sodium Level 136 mmol/L (136-145)
== END | disposition home or self-care (01) ==
PROVIDERS: PCP Family Medicine; Referring Provider Family Medicine; Visit Provider Family Medicine
DX: I82.402 Acute embolism and thrombosis of unspecified deep veins of left lower extremity (principal); M79.605 Pain in left leg; R25.2 Cramp and spasm
CPT/HCPCS: 36415; 80053; 83735; 93971

== ENCOUNTER → 2022-02-14 | Outpatient (CLI) | payer MEDICARE, SELFPAY ==
--- NOTE | 2022-02-14 13:46 | BI_ITS ---
MAMMOGRAPHY - BILATERAL SCREENING REASON FOR EXAM: Female, 71 years old. Routine annual screening examination. PERTINENT HISTORY: Aunt with breast cancer. Remote left stereotactic breast biopsy. TECHNIQUE: Digital bilateral breast anil (3D mammographic acquisition) in the CC and MLO projections. 2-D mediolateral oblique (MLO) and craniocaudad (CC) views of both breasts were obtained. CAD: Full Field Digital Mammography with Computer Added Detection was performed. COMPARISON: Comparison is made with prior study dated 02/03/2020 and 01/12/2019. FINDINGS: Breast Composition: The breasts are heterogeneously dense, which may obscure small masses. There are no dominant masses or suspicious calcifications. A tissue clip marker is once again seen in the upper lateral aspect of the left breast No other significant abnormalities are identified. There has been no significant change since the prior study. BI/SCRN MAMM (CAD)W/ANIL BILAT IMPRESSION: Stable bilateral screening mammogram. Yearly follow-up mammogram recommended. (A) ASSESSMENT CATEGORY: BIRADS Category 2: Benign. A letter regarding these results will be sent to the patient by the facility within 30 days. Approximately 10% of breast cancers are not detected by mammography. A normal mammogram should not delay biopsy of a clinically suspicious abnormality. [id number] Electronically Signed: Lewis Huerta MD at 14:43 EDT ,
== END | disposition home or self-care (01) ==
LOC: OPBI 13:45
PROVIDERS: PCP Family Medicine; Referring Provider Family Medicine; Visit Provider Family Medicine
DX: Z12.31 Encounter for screening mammogram for malignant neoplasm of breast (principal)
CPT/HCPCS: 77063; 77067

== ENCOUNTER → 2022-03-04 | Outpatient (CLI) | payer MEDICARE, SELFPAY ==
[2022-03-04 10:51] LABS: Mucous, Urine 0 SEEN /hpf (<or=2+)
[2022-03-04 11:06] LABS: Color, Urine Yellow (Yellow); Glucose, Dipstick Normal (Normal); Ketone-Dipstick Negative (Negative); Leukocyte Esterase-Dipstick 500 /ul (Negative); Nitrite-Dipstick Negative (Negative); Occult Blood-Urine 250 /ul (Negative); Protein-Dipstick Negative (Negative); Specific Gravity, Urine 1.015 (1.002-1.030); Urine Bilirubin Dipstick Negative (Negative); Urine Clarity Sl. Cloudy (Clear); Urine Urobilinogen Normal (Normal)
[2022-03-04 11:14] LABS: White Blood Cells >100 SEEN /hpf (0-5)
[2022-03-04 11:15] LABS: Bacteria 1+ /hpf (None Seen); Red Blood Cells-Urine 5-10 SEEN /hpf (0-5); Squamous Epithelial Cells - UA 0-5 SEEN /hpf (5-10)
== END | disposition home or self-care (01) ==
LOC: LABSPEC 10:43
PROVIDERS: PCP Family Medicine; Visit Provider Physician Assistant
DX: R30.9 Painful micturition, unspecified (principal); R68.83 Chills (without fever)
CPT/HCPCS: 81001; 87077; 87086; 87088; 87186

== ENCOUNTER → 2022-05-02 | Outpatient (CLI) | payer MEDICARE, SELFPAY ==
[2022-05-02 07:13] LABS: Absolute Lymphocyte Count 2.09 X10^3/uL (0.83-4.51); Absolute Neutrophil Count 1.1 X10^3/uL (2.0-7.7); Basophil# 0.04 X10^3/uL; Basophil% 1.1 % (0-1); Eosinophil# 0.05 X10^3/uL; Eosinophils% 1.4 % (0-5); Hematocrit 37.5 % (37-47); Hemoglobin 12.3 g/dL (12.0-15.0); Lymphocyte # 2.09 X10^3/ul (0.83-4.51); Lymphocyte % 57.6 % (19-41); Mean Corp Hgb Conc 32.8 g/dL (32-36); Mean Corpuscular Hgb 29.1 pg (27.0-32.0); Mean Corpuscular Volume 88.9 fL (81-99); Mean Platelet Vol. 9.1 fl (6.2-12.0); Monocyte# 0.38 X10^3/uL; Monocyte% 10.5 % (0-10); NRBC Flagged by Analyzer 0 % (0-5); Neutrophil # 1.07 X10^3/uL (2.7-7.7); Neutrophil % 29.4 % (47-70); Platelet Count 223 K/mm3 (150-450); RBC Distribution Width CV 14.3 % (11.6-14.6); RBC Distribution Width SD 45.8 fl (35.1-43.9); Red Blood Count 4.22 M/mm3 (4.2-5.4); White Blood Count 3.6 K/mm3 (4.4-11.0)
[2022-05-02 07:40] LABS: AST(SGOT) 40 U/L (15-37); Alanine Aminotransfer ALT/SGPT 41 U/L (13-56); Albumin, Serum 3.6 g/dL (3.2-5.0); Alkaline Phosphatase 61 U/L (45-117); Anion Gap 4 (5-15); BUN 18 mg/dL (7-18); Calcium,Total 8.3 mg/dL (8.5-10.1); Chloride 102 mmol/L (98-107); Cholesterol 233 mg/dL (200); Creatinine, Serum 0.64 mg/dL (0.55-1.02); EST Glomerular Filtration Rate 96 mL/min (>60); Est Glom Filt Rate - Afr Amer 116 mL/min (>60); Globulin 3.5 g/dL (2.2-4.2); Glucose 89 mg/dL (74-106); High Density Lipoprotein 65 mg/dL; Potassium 3.9 mmol/L (3.5-5.1); Protein, Total 7.1 g/dL (6.4-8.2); Sodium Level 135 mmol/L (136-145); Triglycerides 92 mg/dL; Very Low Density Lipoprotein 18 mg/dL (5-40)
== END | disposition home or self-care (01) ==
LOC: LAB 06:06
PROVIDERS: PCP Family Medicine; Referring Provider Family Medicine; Visit Provider Family Medicine
DX: E78.5 Hyperlipidemia, unspecified (principal); Z51.81 Encounter for therapeutic drug level monitoring
CPT/HCPCS: 36415; 80053; 80061; 85025

== ENCOUNTER → 2023-03-18 | Outpatient (CLI) | payer MEDICARE, SELFPAY ==
--- NOTE | 2023-03-18 07:18 | BI_ITS ---
MAMMOGRAPHY - BILATERAL SCREENING 3-D TOMOSYNTHESIS REASON FOR EXAM: Female, 72 years old. SCREENING PERTINENT HISTORY: No significant family history. TECHNIQUE: 2-D mammograms and 3-D Tomosynthesis of the breast (s) were performed. CAD was performed. COMPARISON: 02/14/2022 FINDINGS: The breast composition is heterogeneously dense that can obscure small breast masses. Scattered benign calcifications are seen. No dense spiculated masses or suspicious microcalcifications are identified. No architectural distortion is identified. There is no skin thickening or retraction. There has been no significant change since the prior study. BI/SCRN MAMM (CAD)W/ANIL BILAT IMPRESSION: No mammographic signs of malignancy. Routine yearly mammograms recommended. ASSESSMENT CATEGORY: BIRADS Category 1: Negative. A letter regarding these results will be sent to the patient by the facility within 30 days. FOLLOW UP RECOMMENDATION: Yearly follow up mammogram recommended. (A) Approximately 10% of breast cancers are not detected by mammography. A normal mammogram should not delay biopsy of a clinically suspicious abnormality. Electronically Signed: Marino Santana MD at 14:24 EDT ,
== END | disposition home or self-care (01) ==
LOC: OPBI 07:17
PROVIDERS: PCP Family Medicine; Visit Provider Family Medicine
DX: Z12.31 Encounter for screening mammogram for malignant neoplasm of breast (principal)
CPT/HCPCS: 77063; 77067

== ENCOUNTER → 2023-05-10 | Outpatient (CLI) | payer MEDICARE, SELFPAY ==
[2023-05-10 07:30] LABS: Absolute Lymphocyte Count 2.43 X10^3/uL (0.83-4.51); Absolute Neutrophil Count 1.5 X10^3/uL (2.0-7.7); Basophil# 0.04 X10^3/uL; Basophil% 0.9 % (0-1); Eosinophil# 0.04 X10^3/uL; Eosinophils% 0.9 % (0-5); Hematocrit 38.4 % (37-47); Hemoglobin 12.4 g/dL (12.0-15.0); Lymphocyte # 2.43 X10^3/ul (0.83-4.51); Lymphocyte % 54.5 % (19-41); Mean Corp Hgb Conc 32.3 g/dL (32-36); Mean Corpuscular Hgb 28.2 pg (27.0-32.0); Mean Corpuscular Volume 87.5 fL (81-99); Mean Platelet Vol. 9.3 fl (6.2-12.0); Monocyte# 0.45 X10^3/uL; Monocyte% 10.1 % (0-10); NRBC Flagged by Analyzer 0 % (0-5); Neutrophil # 1.48 X10^3/uL (2.7-7.7); Neutrophil % 33.2 % (47-70); Platelet Count 186 K/mm3 (150-450); RBC Distribution Width CV 13.5 % (11.6-14.6); RBC Distribution Width SD 43.5 fl (35.1-43.9); Red Blood Count 4.39 M/mm3 (4.2-5.4); White Blood Count 4.5 K/mm3 (4.4-11.0)
[2023-05-10 08:02] LABS: ALB/GLOB Ratio 0.9 RATIO (0.9-2.4); AST(SGOT) 32 U/L (15-37); Alanine Aminotransfer ALT/SGPT 41 U/L (13-56); Albumin, Serum 3.4 g/dL (3.2-5.0); Alkaline Phosphatase 69 U/L (45-117); Anion Gap 2 (5-15); BUN 23 mg/dL (7-18); BUN/Creat Ratio 30.4 RATIO (10-20); Calcium,Total 8.5 mg/dL (8.5-10.1); Chloride 110 mmol/L (98-107); Cholesterol 210 mg/dL (200); Creatinine, Serum 0.76 mg/dL (0.55-1.02); EST Glomerular Filtration Rate 79 mL/min (>60); Est Glom Filt Rate - Afr Amer 96 mL/min (>60); Free T3 2.4 pg/mL (2.18-3.98); Globulin 3.8 g/dL (2.2-4.2); Glucose 95 mg/dL (74-106); High Density Lipoprotein 52 mg/dL; Protein, Total 7.2 g/dL (6.4-8.2); Sodium Level 140 mmol/L (136-145); T4 Free Direct 0.82 ng/dL (0.76-1.46); Thyroid Stim Hormone (TSH) 4.12 uIU/mL (0.358-3.74); Triglycerides 157 mg/dL; Very Low Density Lipoprotein 31 mg/dL (5-40)
== END | disposition home or self-care (01) ==
LOC: LAB 07:01
PROVIDERS: PCP Family Medicine; Referring Provider Family Medicine; Visit Provider Family Medicine
DX: R53.83 Other fatigue (principal); E78.5 Hyperlipidemia, unspecified
CPT/HCPCS: 36415; 80053; 80061; 84439; 84443; 84481; 85025

== ENCOUNTER → 2024-01-30 | Outpatient (CLI) | payer MEDICARE, SELFPAY | END | disposition home or self-care (01) | PROVIDERS: PCP Family Medicine; Referring Provider Physician Assistant Surgical; Visit Provider Physician Assistant Surgical | DX: N30.90 Cystitis, unspecified without hematuria (principal) | CPT/HCPCS: 87077; 87086; 87088; 87186 ==

== ENCOUNTER → 2024-03-30 | Outpatient (CLI) | payer MEDICARE, SELFPAY ==
--- NOTE | 2024-03-30 07:07 | BI_ITS ---
MAMMOGRAPHY - BILATERAL SCREENING REASON FOR EXAM: Female, 74 years old. Routine annual screening examination. PERTINENT HISTORY: Aunt with breast cancer. Remote left stereotactic breast biopsy. TECHNIQUE: Digital bilateral breast anil (3D mammographic acquisition) in the CC and MLO projections. 2-D mediolateral oblique (MLO) and craniocaudad (CC) views of both breasts were obtained. CAD: Full Field Digital Mammography with Computer Added Detection was performed. COMPARISON: Comparison is made with prior study dated March 18, 2023 February 14, 2022. FINDINGS: Breast Composition: The breasts are heterogeneously dense, which may obscure small masses. There are no dominant masses or suspicious calcifications. A tissue clip marker is seen in the upper anterior lateral aspect of the left breast. No other significant abnormalities are identified. There has been no significant change since the prior study. BI/SCRN MAMM (CAD)W/ANIL BILAT IMPRESSION: Stable bilateral screening mammogram. Yearly follow-up mammogram recommended. (A) ASSESSMENT CATEGORY: BIRADS Category 2: Benign. A letter regarding these results will be sent to the patient by the facility within 30 days. Approximately 10% of breast cancers are not detected by mammography. A normal mammogram should not delay biopsy of a clinically suspicious abnormality. [id number] Electronically Signed: Lewis Huerta MD at 11:20 EDT ,
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
== END | disposition home or self-care (01) ==
LOC: OPBI 07:05
PROVIDERS: PCP Family Medicine; Referring Provider Family Medicine; Visit Provider Family Medicine
DX: Z12.31 Encounter for screening mammogram for malignant neoplasm of breast (principal)
CPT/HCPCS: 77063; 77067

== ENCOUNTER → 2024-05-18 | Outpatient (CLI) | payer MEDICARE, SELFPAY ==
[2024-05-18 06:30] LABS: Absolute Lymphocyte Count 2.14 X10^3/uL (0.83-4.51); Absolute Neutrophil Count 1.5 X10^3/uL (2.0-7.7); Basophil# 0.04 X10^3/uL; Eosinophil# 0.06 X10^3/uL; Eosinophils% 1.4 % (0-5); Hemoglobin 13.1 g/dL (12.0-15.0); Lymphocyte # 2.14 X10^3/ul (0.83-4.51); Lymphocyte % 51.1 % (19-41); Mean Corp Hgb Conc 33.6 g/dL (32-36); Mean Corpuscular Hgb 28.6 pg (27.0-32.0); Mean Corpuscular Volume 85.2 fL (81-99); Mean Platelet Vol. 8.8 fl (6.2-12.0); Monocyte# 0.49 X10^3/uL; Monocyte% 11.7 % (0-10); NRBC Flagged by Analyzer 0 % (0-5); Neutrophil # 1.45 X10^3/uL (2.7-7.7); Neutrophil % 34.6 % (47-70); Platelet Count 187 K/mm3 (150-450); RBC Distribution Width CV 13.7 % (11.6-14.6); RBC Distribution Width SD 42.4 fl (35.1-43.9); Red Blood Count 4.58 M/mm3 (4.2-5.4); White Blood Count 4.2 K/mm3 (4.4-11.0)
[2024-05-18 07:46] LABS: ALB/GLOB Ratio 0.9 RATIO (0.9-2.4); AST(SGOT) 37 U/L (15-37); Alanine Aminotransfer ALT/SGPT 37 U/L (13-56); Albumin, Serum 3.5 g/dL (3.2-5.0); Alkaline Phosphatase 68 U/L (45-117); Anion Gap 2 (5-15); BUN 24 mg/dL (7-18); BUN/Creat Ratio 33.5 RATIO (10-20); Calcium,Total 8.7 mg/dL (8.5-10.1); Chloride 109 mmol/L (98-107); Cholesterol 222 mg/dL (200); Creatinine, Serum 0.72 mg/dL (0.55-1.02); EST Glomerular Filtration Rate 84 mL/min (>60); Est Glom Filt Rate - Afr Amer 102 mL/min (>60); Free T3 2.8 pg/mL (2.18-3.98); Globulin 3.9 g/dL (2.2-4.2); Glucose 99 mg/dL (74-106); High Density Lipoprotein 57 mg/dL; Potassium 3.9 mmol/L (3.5-5.1); Protein, Total 7.4 g/dL (6.4-8.2); Sodium Level 140 mmol/L (136-145); T4 Free Direct 0.92 ng/dL (0.76-1.46); Triglycerides 150 mg/dL; Very Low Density Lipoprotein 30 mg/dL (5-40)
== END | disposition home or self-care (01) ==
LOC: LAB 06:09
PROVIDERS: PCP Family Medicine; Referring Provider Family Medicine; Visit Provider Family Medicine
DX: E78.5 Hyperlipidemia, unspecified (principal); R53.83 Other fatigue; Z51.81 Encounter for therapeutic drug level monitoring
CPT/HCPCS: 36415; 80053; 80061; 84439; 84443; 84481; 85025

== ENCOUNTER → 2024-07-05 | Outpatient (CLI) | payer MEDICARE, SELFPAY ==
[2024-07-05 11:36] LABS: Erythrocyte Sedimentation Rate 3 mm/hr (0-30)
[2024-07-05 12:13] LABS: AST(SGOT) 41 U/L (15-37); Alanine Aminotransfer ALT/SGPT 43 U/L (13-56); Alkaline Phosphatase 69 U/L (45-117); Amylase 67 U/L (25-115); Anion Gap 5 (5-15); BUN 21 mg/dL (7-18); BUN/Creat Ratio 30.7 RATIO (10-20); CRP < 2.90 mg/L (0.0-3.0); Calcium,Total 9.1 mg/dL (8.5-10.1); Chloride 108 mmol/L (98-107); Creatinine, Serum 0.68 mg/dL (0.55-1.02); EST Glomerular Filtration Rate 89 mL/min (>60); Est Glom Filt Rate - Afr Amer 108 mL/min (>60); Glucose 99 mg/dL (74-106); LDH 213 U/L (84-246); Lipase 51 U/L (13-75); Potassium 3.6 mmol/L (3.5-5.1); Sodium Level 139 mmol/L (136-145)
[2024-07-08 11:08] LABS: Alternaria alternata <0.10 kU/L (Class 0); Beef <0.10 kU/L (Class 0); Bermuda Grass <0.10 kU/L (Class 0); Bluegrass, Kentucky <0.10 kU/L (Class 0); Cat Hair/Dander, Standard <0.10 kU/L (Class 0); Chocolate <0.10 kU/L (Class 0); Codfish <0.10 kU/L (Class 0); Corn <0.10 kU/L (Class 0); D farinae Mite <0.10 kU/L (Class 0); D pteronyssinus <0.10 kU/L (Class 0); Dog Epithelia <0.10 kU/L (Class 0); Egg, Whole <0.10 kU/L (Class 0); Elm, American White <0.10 kU/L (Class 0); Milk (Cow) <0.10 kU/L (Class 0); Mouse Urine <0.10 kU/L (Class 0); Mussels <0.10 kU/L (Class 0); Oak, White <0.10 kU/L (Class 0); Peanut <0.10 kU/L (Class 0); Plantain, English <0.10 kU/L (Class 0); Pork <0.10 kU/L (Class 0); Ragweed, Short/Common <0.10 kU/L (Class 0); Salmon <0.10 kU/L (Class 0); Shrimp <0.10 kU/L (Class 0); Soybean <0.10 kU/L (Class 0); Tuna <0.10 kU/L (Class 0); Wheat <0.10 kU/L (Class 0)
[2024-07-08 14:08] LABS: Cytoplasmic Ab (C-ANCA) <1:20 titer (Neg:<1:20); Endomysial Antibody IgA Negative (Negative); Gastrin, Serum 46 pg/mL (0-115); Immunoglobulin A 185 mg/dL (64-422); Immunoglobulin E 29 IU/mL (6-495); Immunoglobulin G 1644 mg/dL (586-1602); Immunoglobulin M 111 mg/dL (26-217); Perinuclear Ab (P-ANCA) <1:20 titer (Neg:<1:20); t-Transglutaminase IgA <2 U/mL (0-3)
== END | disposition home or self-care (01) ==
LOC: LAB 10:21
PROVIDERS: PCP Family Medicine; Referring Provider Internal Medicine Gastroenterology; Visit Provider Internal Medicine Gastroenterology
DX: Z91.018 Allergy to other foods (principal)
CPT/HCPCS: 36415; 80053; 82150; 82784; 82785; 82941; 83516; 83615; 83690; 85652; 86003; 86005; 86037; 86140; 86225; 86235; 86255

== ENCOUNTER → 2024-07-12 | Outpatient (CLI) | payer MEDICARE, SELFPAY ==
[2024-07-13 18:07] LABS: IgG, Quant 1666 mg/dL (586-1602); Immunoglobulin G, Subclass 1 1170 mg/dL (248-810); Immunoglobulin G, Subclass 2 102 mg/dL (130-555); Immunoglobulin G, Subclass 3 102 mg/dL (15-102); Immunoglobulin G, Subclass 4 19 mg/dL (2-96)
== END | disposition home or self-care (01) ==
LOC: LAB 09:45
PROVIDERS: PCP Family Medicine; Referring Provider Student in an Organized Health Care Education/Training Program; Visit Provider Student in an Organized Health Care Education/Training Program
DX: R76.8 Other specified abnormal immunological findings in serum (principal)
CPT/HCPCS: 36415; 82784; 82787

== ENCOUNTER → 2024-09-06 | Outpatient (CLI) | payer MEDICARE, SELFPAY ==
--- NOTE | 2024-09-06 07:45 | US_ITS ---
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 Lot78 S-shear wave elastography was performed for non-invasive assessment of liver tissue stiffness. FINDINGS: Liver: Borderline slightly echogenic. 17.0 cm in length. Gallbladder: Suspected layering sludge. No visualized stones, wall thickening or pericholecystic fluid. Reportedly, sonographic Lewis's was negative. Biliary tree: A cystic area associated with the CBD measures 1.0 x 1.5 x 0.9 cm. Upstream CBD measures 3 mm. Pancreas: Partially obscured by shadowing bowel gas, grossly unremarkable as visualized. Right kidney: Unremarkable. 10.9 cm in length. Other: No visualized free fluid. Hepatic elastography: Number of measurements: Total of 15 measurements obtained in 3 regions, 5 measurements per region. US probe: CA1-7A. EQI median: 6.8 kPa EQI median velocity: 1.5 m/s IQR/Med: 12.2-22.2% (kPa) and 6.2-10.8% (m/s). If the IQR/Med is IQR/median >30% (for kPa) or >15% in m/s, the variance in the measurements is a large and the accuracy of the measurement may be in question. US/ABD Limited w/ Elastography IMPRESSION: 1. Borderline slightly echogenic appearance of the liver which can be seen in e bronson/mild medical liver disease such as steatosis. Correlate with clinical and laboratory evaluation. 2. Liver stiffness is 6.8 kPa. Per the below 2020 SRU criteria, this rules out compensated advanced chronic liver disease in the absence of other known clinical signs. If there are known clinical signs, furth er testing may be needed for confirmation. 3. 1.5 cm cystic focus associated with the CBD, unclear if this reflects fusifo rm dilatation of the CBD or a true cystic lesion. Upstream CBD appears normal in caliber. Choledochal cyst is within the differe ntial. Recommend MRI abdomen with and without contrast, and with MRCP. 4. Additional description as above. Assessment is per the Update to the SRU Liver Elastography Consensus Statement (2020) Note that the above assessment of liver fibrosis is vendor-neutral and intended for use in fibrosis related to viral etiologies and non-alcoholic fatty-liver disease (NAFLD); in causes other than viral hepat itis and NAFLD, the cutoff values are currently not well established. In some patients with NAFLD, the cutoff values for cACLD may be lower (7-9 kPa). Note also that in the setting of elevated LFTs, nonfasting or vascular congestion, the stage of lifer fibrosis may be overestimated. Previous SRU reference values: <1.37 m/s (5.7kPa): No to mild fibrosis 1.37 m/s - 2.2 m/s: Moderate to severe fibrosis >2.2 m/s (15kPa): Significant fibrosis / cirrhosis Reading Location: [id number]
== END | disposition home or self-care (01) ==
LOC: OPUS 07:44
PROVIDERS: PCP Family Medicine; Referring Provider Internal Medicine Medical Oncology; Visit Provider Internal Medicine Medical Oncology
DX: D89.2 Hypergammaglobulinemia, unspecified (principal)
CPT/HCPCS: 76705; 76981

== ENCOUNTER → 2024-09-08 | Outpatient (CLI) | payer MEDICARE, SELFPAY ==
--- NOTE | 2024-09-08 11:45 | RAD_ITS ---
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 COMPARISON: No relevant prior studies available. FINDINGS: BONES/JOINTS: Multilevel endplate degenerative changes and disc of the cervical spine. Grade 1 anterior spondylolisthesis of L4 over L5. Multilevel facet arthropathy of L2 through S1. SOFT TISSUES: Unremarkable. VASCULATURE: Scattered calcified atherosclerotic disease of aorta. OTHER FINDINGS: Mild pulmonary congestion. RAD/Bone Survey Comp(Axial&Append) IMPRESSION: Degenerative changes of the spine as above. Otherwise, unremarkable exam. Reading Location[facility]
== END | disposition home or self-care (01) ==
LOC: RAD 11:38
PROVIDERS: PCP Family Medicine; Referring Provider Internal Medicine Medical Oncology; Visit Provider Internal Medicine Medical Oncology
DX: D89.2 Hypergammaglobulinemia, unspecified (principal)
CPT/HCPCS: 77075

== ENCOUNTER 2024-11-17 05:24 | Day surgery (SDC) | payer MEDICARE, SELFPAY ==
[2024-11-17] VITALS (9 sets, daily range): BP systolic 89–128; BP diastolic 53–75; PULSE 49–59; RESP 12–16; TEMP 36.3–36.6; O2SAT 97–100; BMI 22.9
--- OUTSIDE RECORDS SUMMARY | 2024-11-17 05:28 | XMS RPT_ITS | CCD ---
Author Organization [facility] Care Team Providers Care Drug Safety Specialist Name Role Phone Dr. Radha Rodas Primary Care Provider Dr. Radha Rodas Referring Provider Dr. Meet Oliva Attending Provider [phone] Daniel Dickerson Attending Provider VICKY Osuna Attending Provider Dr. Radha Rodas Primary Care Provider Dr. Radha Rodas Referring Provider VICKY Falcon Attending Provider Dr. Radha Rodas Primary Care Provider [phone] Radha Rodas Referring Provider VICKY Falcon Attending Provider Dr. Radha Rodas DO Primary Care Provider [phone] Radha Rodas DO Attending Provider Dr. Radha Rodas DO Referring Provider Dr. Alejandro Roy DO Attending Provider Dr. Alejandro Roy DO Referring Provider Azul Robles Attending Provider [phone] Azul Robles Referring Provider Dr. Meet Santos MD Attending Provider Dr. Meet Santos MD Referring Provider Dr. Sun Rodas DOa Primary Care Provider [phone] Dr. Radha Rodas DO Referring Provider Friend, Alejandro Attending Unavailable Malys, Radha Primary Care Unavailable Prah, Meet Referring Unavailable Prah, Meet Attending Unavailable Malys, Radha Primary Care Unavailable Malys, Radha Primary Care Unavailable Malys, Radha Attending Unavailable Malys, Radha Referring Unavailable Prah, Meet Attending Unavailable Friend, Alejandro Referring Unavailable Friend, Alejandro Attending Unavailable Malys, Radha Referring Unavailable Malys, Radha Primary Care Unavailable Prah, Meet Attending Unavailable Malys, Radha Referring Unavailable Malys, Radha Primary Care Unavailable Malys, Radha Primary Care Unavailable Borruso, Meet Attending Unavailable Malys, Radha Referring Unavailable Malys, Radha Primary Care Unavailable Tuan, Sahuarita Attending Unavailable Friend, Alejandro Attending Unavailable Malys, Radha Referring Unavailable Malys, Radha Primary Care Unavailable Malys, Radha Primary Care Unavailable Joe Chin Attending Unavailable Malys, Radha Referring Unavailable Malys, Radha Primary Care Unavailable Migue PA, Joe Attending Unavailable Migue PA, Joe Referring Unavailable Friend, Alejandro Attending Unavailable Friend, Alejandro Referring Unavailable Malys, Radha Primary Care Unavailable Azul Mena Attending Unavailable Azul Mena Referring Unavailable Malys, Radha Primary Care Unavailable Prah, Meet Referring Unavailable Prah, Meet Attending Unavailable Malys, Radha Primary Care Unavailable Prah, Meet Referring Unavailable Prah, Meet Attending Unavailable Malys, Radha Primary Care Unavailable Malys, Radha Primary Care Unavailable Malys, Radha Attending Unavailable Malys, Radha Referring Unavailable Friend, Alejandro Referring Unavailable Friend, Alejandro Attending Unavailable Malys, Radha Primary Care Unavailable Allergies Allergy Classification Reported Allergen(s) Allergy Type Date of Onset Reaction(s) Facility (11 sources) Penicillins; Translations: [Penicillins] Allergy to substance 04-13-2021 [facility] Medications Current Medications Medication Drug Class(es) Dates Sig (Normalized) Sig (Original) L.Acidoph,Saliva-B. Bif-S.Therm (Acidophilus Probiotic Blend) 175 mg capsule (3 sources) Start: 08-26-2024 take 1 capsule by mouth once daily L.Acidoph,Saliva-B .Bif-S.Therm (Acidophilus Probiotic Blend) 175 mg capsule Active 1 NMA PO daily August 26, 2024 12:00am Nx-Ok-Qajt-Fa-Ca Carb-Vit K (Women's Multivitamin) 18 mg iron-400 mcg-500 mg tablet (10 sources) Start: 03-25-2019 Rk-Bq-Hutd-Fa-Ca Carb-Vit K (Women's Multivitamin) 18 mg iron-400 mcg-500 mg tablet Active 1 {tbl} PO DAILY March 25, 2019 12:00am Start: 03-25-2019 take 1 tablet by zulma th once daily Yv-Dl-Zrme-Fa-Ca Carb-Vit K (Women's Multivitamin) 18 mg iron-400 mcg-500 mg tablet Active 1 TABLET PO DAILY March 24, 2019 11:00pm Start: 03-25-2019 take 1 tablet by zulma th once daily Fw-Ak-Lszl-Fa-Ca Carb-Vit K (Women's Multivitamin) 18 mg iron-400 mcg-500 mg tablet Active 1 TABLET PO DAILY March 25, 2019 12:00am [place]-3 Fatty Acids 1,000 mg capsule (3 sources) Start: 08-26-2024 take 1 capsule by mouth once daily [place]-3 Fatty Acids 1,000 mg capsule Active 1000 mg PO daily August 26, 2024 12:00am polyethylene glycol 3350 32526 mg powder for oral solution (3 sources) Osmotic Laxative Start: 07-05-2024 Polyethylene Glycol 3350 (Miralax) 17 gram/dose powder Active 4 g PO daily as needed for constipation July 05, 2024 1:00am Ozawnyz-Nvnn-Caiwj-O reg-Capryl (6 sources) Start: 01-28-2022 Uzkdnge-Kexz-D live- Oreg-Capryl Active CAP PO January 27, 2022 11:00pm Start: 01-28-2022 Npensnf-Rahi-M uauz-Kymd-Asxwnh Active CAP PO January 28, 2022 12:00am Miulsshq-Qsqj-Wsfjw-Oreg-Cap ry 100 mg-150 mg- 50 mg-150 mg capsule (3 sources) Start: 01-28-2022 Sasfabew-Gfef-Thqkx-Oreg-Cap ry 100 mg-150 mg- 50 mg-150 mg capsule Active NMA PO January 28, 2022 12:00am Completed/Discontinued Medications Medication Drug Class(es) Dates Sig (Normalized) Sig (Original) acetaminophen 325 mg / oxyCODONE hydrochloride 5 mg oral tablet (20 sources) Opioid Agonist Start: 10-25-2013 End: 08-15-2017 Oxycodone-Acetamino phen 1 TABLET tablet Discontinued 1 {tbl} PO EVERY 4 HOURS NEEDED as needed for Pain October 26, 2013 11:43am August 15, 2017 8:47am Start: 10-25-2013 End: 08-15-2017 take 1 tablet by mouth every four hours as needed Oxycodone-Acetaminophen Discontinued 1 TABLET PO EVERY 4 HOURS NEEDED October 26, 2013 10:43am August 15, 2017 7:47am ciprofloxacin 500 mg oral tablet (17 sources) Quinolone Antimicrobial Start: 03-02-2022 End: 03-07-2022 take 1 tablet by mouth twice daily Ciprofloxacin Hcl (Cipro) 500 mg tablet Discontinued 500 mg PO TWICE A DAY 10 March 02, 2022 12:00am March 06, 2022 12:00am March 07, 2022 12:03am Start: 12-25-2018 End: 12-31-2018 take 1 tablet by mouth twice daily Ciprofloxacin Hcl (Cipro) 500 mg tablet Discontinued 500 mg PO TWICE A DAY 10 December 25, 2018 12:00am December 29, 2018 12:00am December 31, 2018 12:08am ibuprofen 200 mg oral capsule (10 sources) Nonsteroidal Anti-inflammatory Drug Start: 08-15-2017 End: 08-18-2017 Ibuprofen 200 mg capsule Discontinued PO August 15, 2017 12:00am August 18, 2017 10:50am Start: 08-15-2017 End: 08-18-2017 Ibuprofen Discontinued PO [facility] 2017 11:00pm August 18, 2017 9:50am nitrofurantoin, macrocrystals 25 mg / nitrofurantoin, monohydrate 75 mg oral capsule (13 sources) Nitrofuran Antibacterial Start: 01-30-2024 End: 02-06-2024 take 1 capsule by mouth every twelve hours at mealtime Nitrofurantoin Monohyd/M-Cryst 100 mg capsule Discontinued 1 NMA PO Q12H 14 January 30, 2024 12:00am February 05, 2024 12:00am February 06, 2024 12:04am administer with a meal/food; swallow whole; do not open, crush, dissolve , or chew Start: 08-18-2017 End: 08-25-2017 take 1 capsule by mouth every twelve hours at mealtime Nitrofurantoin Monohyd/M-Cryst 100 mg capsule Discontinued 1 NMA PO Q12H 14 7 August 18, 2017 12:00am August 24, 2017 12:00am August 25, 2017 12:06am administer with a meal/food; swallow whole; do not open, crush, dissolve , or chew phenazopyridine hydrochloride 95 mg oral tablet (10 sources) Start: 08-18-2017 End: 03-25-2019 take 1 tablet by mouth once Phenazopyridine (Azo Urinary Pain Relief) 95 mg tablet Discontinued 95 mg PO ONCE August 18, 2017 12:00am March 25, 2019 9:04am sulfamethoxazole 800 mg / trimethoprim 160 mg oral tablet (3 sources) Dihydrofolate Reductase Inhibitor Antibacterial, Sulfonamide Antimicrobial Start: 02-03-2024 End: 07-05-2024 Sulfamethoxazole-Tri methoprim 800-160 mg tablet Discontinued 1 {tbl} PO TWICE A DAY February 03, 2024 12:00am July 05, 2024 10:36am Problems Active Problems Problem Classification Problem Date Documented Da te Episodic/Chronic Biliary tract disease (1 source) Other specified diseases of biliary tract; Translations: [Other specified diseases of biliary tract] Onset: 11-13-2024 Chronic Disorders of lipid metabolism (1 source) Hyperlipidemia, unspecified; Translations: [Hyperlipidemia, unspecified] Onset: 06-19-2024 Chronic E Codes: Natural/environment (7 sources) Insect bite - wound; Translations: [Bitten or stung by nonvenomous insect and other nonvenomous arthropods, initial encounter] 02-15-2023 Episodic Fever of unknown origin (10 sources) Fever; Translations: [Fever, unspecified] 04-13-2021 Episodic Headache; including migraine (10 sources) Headache; Translations: [Headache] 03-05-2021 Episodic Immunity disorders (8 sources) Hypergammaglobuline espinoza; 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 Pt understands. Immunizations and screening for infectious disease (14 sources) Contact with and (suspected) exposure to other viral communicable diseases; Translations: [Contact with or suspected exposure to other viral communicable disease] Onset: 10-21-2024 03-05-2021 Episodic Joint disorders and dislocations; trauma-related (10 sources) Acute meniscal tear, medial; Translations: [Other tear of medial meniscus, current injury, right knee, initial encounter] 08-15-2017 Episodic Other bone disease and musculoskeletal deformities (10 sources) Chondromalacia; Translations: [Chondromalacia, unspecified knee] 10-11-2020 Episodic Other connective tissue disease (4 sources) Other bursitis of knee, unspecified knee; Translations: [Pes anserinus tendinitis or bursitis] Episodic Other connective tissue disease (3 sources) Pes anserinus bursitis; Translations: [Other bursitis of knee, unspecified knee] 01-28-2022 Episodic Other injuries and conditions due to external causes (10 sources) Hematoma; Translations: [Other injury of unspecified body region, initial encounter] 10-25-2013 Episodic Other upper respiratory infections (10 sources) Acute upper respiratory infection; Translations: [Acute upper respiratory infection, unspecified] 03-05-2021 Episodic Residual codes; unclassified (10 sources) Chill; Translations: [Chills (without fever)] 03-05-2021 Episodic Unclassified (10 sources) Age more than 65 years; Translations: [Over 65 years old] 04-16-2021 Unclassified (1 source) Hepatic fibrosis, unspecified; Translations: [Hepatic fibrosis, unspecified] Onset: 10-21-2024 Viral infection (10 sources) Disease caused by 2019-nCoV; Translations: [COVID-19] 04-13-2021 Episodic Past or Other Problems Problem Classification Problem Date Documented Da te Episodic/Chronic Allergic reactions (7 sources) Allergy to food; Translations: [Allergy to other foods] Onset: 07-20-2024 07-05-2024 Episodic Other connective tissue disease (6 sources) Bursitis of knee; Translations: [Other bursitis of knee, unspecified knee] 01-28-2022 Episodic Other non-traumatic joint disorders (1 source) Pain in right knee; Translations: [Pain in right knee] Onset: 12-01-2023 Episodic Other screening for suspected conditions (not mental disorders or infectious disease) (1 source) Encounter for screening mammogram for malignant neoplasm of breast; Translations: [Encounter for screening mammogram for malignant neoplasm of breast] Onset: 04-20-2024 Episodic Urinary tract infections (20 sources) Urinary tract infectious disease; Translations: [Urinary tract infection, site not specified] Onset: 01-30-2024 Episodic Results Test Name Value Interpretation Reference Range Facility Hepatitis B/C Profile VIIIon 10-26-2024 HEPATITIS INTER Normal [facility] Comment on above: Result Comment: TEST RESULTS LIMITS Viral Hepatitis HBV, HCV HBsAg Screen Negative Negative Hep B Surface Ab, Qual Reactive Non Reactive: Not immune to HBV infection. Equivocal: Unable to determine if anti-HBs is present at levels consistent with immunity. Reactive: Anti-HBs concentration detected at greater than 10 mIU/mL. Individual is considered to be immune to infection with HBV. Hep B Core Ab, Tot Negative Negative Interpretation HBV Serology Interpretation Chart --- Interpretation HBsAg anti-HBs anti-HBc anti-HBc IgM --- Piper - Analyte present: + Analyte absent: - Test not indicated: TNI --- Susceptible (never infected and no evidence - - - TNI of vaccination) --- Immune due to natural resolved infection - + + TNI --- Immune due to vaccination - + - TNI --- Acute Infection + - + + --- Chronic infection + - + - --- Interpretation unclear* - - + +/- --- *Multiple possibilities: resolved infection (most common); false- positive anti-HBc (susceptible); low-level chronic infection; resolving acute infection. HCV Ab Non Reactive Non Reactive Interpretation: Not infected with HCV unless early or acute infection is suspected (which may be delayed in an immunocompromised individual), or other evidence exists to indicate HCV infection. TESTING PERFORMED AT [facility] ORIGINAL REPORT ON FILE IN LAB CONTAINS ADDITIONAL TEST SITE INFORMATION. Performed By: #### L 3100.3425, L101.9900, L3000.0800, L3130.0010, L100.9950, L501.6710, L503.0106, L500.4050, L100.0100 ####[facility] [id number] [place], [address] LORENZO + Protein Elect, Serumon 10-26-2024 PROTEIN,TOTAL Normal [facility] Comment on above: Order Comment: N Result Comment: TEST RESULTS LIMITS LORENZO and PE, Serum Immunoglobulin G, Qn, Serum 1622 High mg/dL 586-1602 Immunoglobulin A, Qn, Serum 172 mg/dL 87-352 Immunoglobulin M, Qn, Serum 106 mg/dL 26-217 Protein, Total 7.2 g/dL 6.0-8.5 Albumin 3.9 g/dL 2.9-4.4 Qdnby-1-Ojophkbl 0.2 g/dL 0.0-0.4 Aself-8-Twahxhbt 0.6 g/dL 0.4-1.0 Beta Globulin 0.9 g/dL 0.7-1.3 Gamma Globulin 1.6 g/dL 0.4-1.8 M-Fabián Not Observed g/dL Not Observed Globulin, Total 3.3 g/dL 2.2-3.9 A/G Ratio 1.2 0.7-1.7 Immunofixation Result, Serum Comment: Presence of monoclonal protein is unclear at this time. Suggest repeat in 3 to 6 months if clinically indicated. Please note: Protein electrophoresis scan will follow via computer, mail, or firer retort delivery. TESTING PERFORMED AT [facility]. ORIGINAL REPORT ON FILE IN LAB CONTAINS ADDITIONAL TEST SITE INFORMATION. Performed By: #### L 3300.1800, L3300.1200, L3410.2400, L101.9900, L501.2450, L501.6710, L5500.0550, L504.2610, L3200.1100, L501.2400, L500.4050, L5500.0300 #### [facility] [address] [place], [address] Summit Lambda Light Chainson 10-26-2024 FR KAPPA LT CHN Normal [facility] Comment on above: Result Comment: TEST RESULTS LIMITS Free K+L Lt Chains,Qn,S Free Summit Lt Chains,S 33.3 High mg/L 3.3-19.4 Free Lambda Lt Chains,S 45.0 High mg/L 5.7-26.3 Summit/Lambda Ratio,S 0.96 0.26-1.65 TESTING PERFORMED AT [facility]. ORIGINAL REPORT ON FILE IN LAB CONTAINS ADDITIONAL TEST SITE INFORMATION. Performed By: #### L 3300.1800, L3300.1200, L3410.2400, L101.9900, L501.2450, L501.6710, L5500.0550, L504.2610, L3200.1100, L501.2400, L500.4050, L5500.0300 #### [facility] [address] [place], [address] Oncology Visit Reporton 10-01 Oncology Visit Report [facility] [address] [place] [address] OFFICE VISIT Date of Service: 10/21/24 1401 MR#: [id number] Acct: [id number] Name: OLGA STAFFORD Rep #: [id number] : 1950 From: Meet Santos MD Age/Sex: 74/F Location: [facility] Status: Signed HPI Subjective Date of Service 10/21/24 Chief Complaint F/u for High IgG level. History of Present Illness 74-year-old woman was found to have high IgG level and referred for further evaluation. She denies weight loss, fever, night sweats or pain. Had repeat blood work/Skeletal survey and comes for follow up. [facility] Medical History (Updated 10/21/24 @ 17:[address] Meet Santos MD) Knee pain Surgical History History of appendectomy Hx of appendectomy Family History Mother Hypertension CVA (cerebral vascular accident) Father Hypertension Prostate cancer Social History Smoking Status: Never smoker alcohol intake: current alcohol intake frequency: holidays/special occasions only substance use type: does not use what type of physical activity do you participate in: walking and bicycling Intake Vital Signs 08/26/24 15:08 10/18/24 09:32 10/21/24 14:01 Height 5 ft 2 in 5 ft 2 in 5 ft 2 in Weight: 58.315 kg BMI 23.5 BP 117/71 Blood Pressure Location Lt brachial Position Sitting Respiration 18 Pulse 57 L Pulse Source Monitor Temp 98.9 F Temperature Source Temporal Artery Pulse Oximetry (%) 99 Oxygen Delivery Method room air Intake Is patient in pain?: No Allergies Penicillins Allergy (Verified 10/21/24 14:05) Hives Medications ???Medication ???Instructions ???Recorded ???Confirmed ???Type xjtqgwqh-ilw-stvd-FA-Ca carb-vit K 1 tab PO DAILY 03/25/19 10/21/24 History 18 mg iron-400 mcg-500 mg tablet (Women's Multivitamin) turmeric 100 mg-kristian 150 cap PO 01/28/22 10/21/24 History mg-olive 50 mg-oreg 150 mg-capryl capsule polyethylene glycol 3350 17 4 g PO QDAY PRN constipation 07/0510/21/24 History gram/dose oral powder (Miralax) L.acidophil,salivari-Bifi do 1 cap PO QDAY 08/26/24 10/21/24 Hi story bifidum-Strep thermoph 175 mg capsule (Acidophilus Probiotic Blend) omega-3 fatty acids 1,000 mg 1,000 mg PO QDAY 08/26/24 10/21/24 History capsule cetirizine 10 mg tablet 10 mg PO QDAY #30 tabs 10/18/24 Rx famotidine 20 mg tablet 20 mg PO QDAY #30 tabs 10/18/24 Rx prednisone 20 mg tablet 20 mg PO QDAY 30 days #30 tabs 10/21/24 Rx Have you fallen in the past year?: No Central Venous Access Central Venous Access: No Laboratory Tests 05/18/24 07/05/24 07/12/24 06:11 10:28 09:49 WBC 4.2 L Hgb 13.1 Hct 39.0 Plt Count 187 Absolute Neuts (auto) 1.5 L Absolute Lymphs (auto) 2.14 ESR Sodium 139 Potassium 3.6 Chloride 108 H Carbon Dioxide 26.0 BUN 21 H Creatinine 0.68 Glucose 99 Calcium 9.1 Total Bilirubin 0.40 AST 41 H ALT 43 Alkaline Phosphatase 69 Lactate Dehydrogenase 213 C-React Prot Ext Range < 2.90 Total Protein 8.0 Albumin 4.0 Globulin 4.0 Vitamin B12 IgG 1644 H IgG Total 1666 H IgG1 1170 H IgG2 102 L IgG3 102 IgA 185 IgM 111 IgE 29 10/14/24 14:04 WBC 4.5 Hgb 12.8 Hct 37.4 Plt Count 174 Absolute Neuts (auto) 1.5 L Absolute Lymphs (auto) 2.53 ESR 5 Sodium 139 Potassium 3.9 Chloride 104 Carbon Dioxide 25.7 BUN 17 Creatinine 0.73 Glucose 92 Calcium 9.6 Total Bilirubin 0.43 AST 42 H ALT 36 H Alkaline Phosphatase 67 Lactate Dehydrogenase C-React Prot Ext Range < 3.00 Total Protein 7.5 Albumin 4.5 Globulin 3.1 Vitamin B12 660 IgG IgG Total IgG1 IgG2 IgG3 IgA IgM IgE 09/08/2024 Skeletal survey reviewed. RAD/Bone Survey Comp(Axial Append) IMPRESSION: Degenerative changes of the spine as above. Otherwise, unremarkable exam. . 09/06/2024 Abd US and liver Elastography reviewed. US/ABD Limited w/ Elastography IMPRESSION: 1. Borderline slightly echogenic appearance of the liver which can be seen in early/mild medical liver disease such as steatosis. Correlate with clinical and laboratory evaluation. 2. Liver stiffness is 6.8 kPa. Per the below 2020 SRU criteria, this rules out compensated advanced chronic liver disease in the absence of other known clinical signs. If there are known clinical signs, further testing may be needed for confirmation. 3. 1.5 cm cystic focus associated wi (more content not included)... Normal [facility] Gastroenterology Visit Repor ton 10-18-2024 Gastroenterology Visit Report [facility] [address] [place] [address] OFFICE VISIT Date of Service: 10/18/24 MR#: [id number] Acct: [id number] Name: OLGA STAFFORD Rep #: [id number] : 1950 Provider: Alejandro Roy DO Age/Sex: 74/F Location: [facility] Status: Signed Intake Vital Signs 01/30/24 06:11 08/26/24 15:08 Height 5 ft 2 in 5 ft 2 in Intake Visit Reasons: 3 M FU Allergies Penicillins Allergy (Verified 08/26/24 15:04) Hives Medications ???Medication ???Instructions ???Recorded ???Confirmed ???Type wbimpcgm-sfs-jnbm-FA-Ca carb-vit K 1 tab PO DAILY 03/25/19 10/18/24 History 18 mg iron-400 mcg-500 mg tablet (Women's Multivitamin) turmeric 100 mg-kristian 150 cap PO 01/28/22 10/18/24 History mg-olive 50 mg-oreg 150 mg-capryl capsule polyethylene glycol 3350 17 4 g PO QDAY PRN constipation 07/0510/18/24 History gram/dose oral powder (Miralax) L.acidophil,salivari-Bifi do 1 cap PO QDAY 08/26/24 10/18/24 Hi story bifidum-Strep thermoph 175 mg capsule (Acidophilus Probiotic Blend) omega-3 fatty acids 1,000 mg 1,000 mg PO QDAY 08/26/24 10/18/24 History capsule cetirizine 10 mg tablet 10 mg PO QDAY #30 tabs 10/18/24 Rx famotidine 20 mg tablet 20 mg PO QDAY #30 tabs 10/18/24 Rx prednisone 20 mg tablet 20 mg PO QDAY 30 days #30 tabs 10/18/24 Rx Have you fallen in the past year?: No PFSH Medical History (Updated 10/18/24 @ 12:[address] Allen Friend, DO) Knee pain Surgical History History of appendectomy Hx of appendectomy Family History Mother Hypertension CVA (cerebral vascular accident) Father Hypertension Prostate cancer Social History Smoking Status: Never smoker alcohol intake: current alcohol intake frequency: holidays/special occasions only substance use type: does not use what type of physical activity do you participate in: walking and bicycling HPI HPI Details: OLGA STAFFORD, is a 74 F who presents to the office today for follow up. *BGI established 2.3.25 pt reports that for the last several years she has been having random episodes of vomiting 4 hours after she has eaten certain foods. pt reports that she has had scopes and a GET, has seen a few gastroenterologists and allergists, and hasn't found a answer for her symptoms. She provided a detailed synopsis over the last 10 years of which she has been experiencing. This started back in August 2013 where she had a first episode of nausea and vomiting after eating sánchez. Patient said she did not keep a record of each episode but she did notice that after the lamp incident she also the same incident with fish, pepitas, black beans, pecans and walnuts. The same year in April 2014 she underwent imaging by her PCP at [facility] that showed a large amount of stool and delayed gastric emptying on a gastric emptying study. From 2013 and 2021 she had random bouts of vomiting probably eating types of foods such as, chickpeas, fish, pepitas, black beans, pecans and walnuts. Her treatment up until 2021 was food avoidance. In July 2021 she had saw an it infrastructure specialist at previous clinic and was diagnosed with food protein induced enterocolitis syndrome. Treatment was recommended In May 2024 she had breast spinach salad and had the same reaction. Up until that time avoiding those other foods that cause the problem was successful. However because of this new episode she came in for consultation. Referred to hematology for elevated IgG levels US and elastography 4..25 hepatic measurement 17cm with fatty infiltration, stiffness measures 6.8kPa OV 5.19.25 pt reports that she has not eaten any foods that have caused an episode, but states that she is feeling discouraged with not having any answers or treatment for her symptoms. Pt reports she is having a bm every 2-3 days and takes Miralax as needed. ROS Const Constitutional: Positive for fatigue; No fever(s) or weight change ENT ENT: No difficulty swallowing Gastro GI: Positive for constipation; No abdominal pain, belching, bloating, change in bowel habits, change in stool character, coffee ground emesis, cramping, diarrhea, heartburn, difficulty swallowing, feeling full early, excessive flatus, incontinent of stools, Vomiting blood/hematemesis, Blood in stool, loose stools, Black,tarry stools, nausea/dyspepsia, pain with swallowing, vomiting or other Musc Musculoskeletal: Positive for stiffness and Arthritis; No joint pain Skin Skin: No yellowing of the eye or itchy eyes Neuro Neurology: Positive for Increased tone in limbs Psych Psychiatric: Positive (more content not included)... Normal [facility] Absolute lymphocyte countOrd ered By: Meet Santos on 10-14-2024 Lymphocytes Auto (Unsp spec) [#/Vol] 2.53 10*3/uL 0.83-4.51 [facility] Absolute neutrophil countOrd ered By: Meet Giang on 10-14-2024 Neutrophils (Bld) [#/Vol] 1.5 10*3/uL Low 2.0-7.7 [facility] Anion gap in Serum or Plasma Ordered By: Meet Giangolivia on 10-14-2024 Anion gap [Moles/Vol] 9 mmol/L 10-14 [facility] Automated lymphocyte count a s percentage of total leukocytesOrdered By: Meet Giang on 10-14-2024 Lymphocytes/100 WBC Auto (Unsp spec) 56.3 % High 19-41 [facility] BUN/creatinine ratioOrdered By: [facility] on 10-14-2024 Urea nitrogen/Creatinine [Mass ratio] 23.1 mg/mg High 10-20 [facility] Basophil percentageOrdered B y: Meet Giangolivia on 10-14-2024 Basophils/100 WBC (Bld) 1.1 % High 0-1 [facility] Bilirubin, totalOrdered By: Meet Giangolivia on 10-14-2024 Bilirubin [Mass/Vol] 0.43 mg/dL 0.00-1.30 [facility] CBC W/Diff, Automatedon 09-30 Absolute Lymph 2.53 X10 3/uL Normal 0.83-4.51 [facility] Comment on above: Performed By: #### L 3100.3425, L101.9900, L3000.0800, L3130.0010, L100.9950, L501.6710, L503.0106, L500.4050, L100.0100 ####[facility] [address] [place], [place], [id number] Absolute Neut 1.5 X10 3/uL Low 2.0-7.7 [facility] Comment on above: Performed By: #### L 3100.3425, L101.9900, L3000.0800, L3130.0010, L100.9950, L501.6710, L503.0106, L500.4050, L100.0100 ####[facility] [address] [place], [address] Basophils/100 WBC (Bld) 1.1 % High 0-1 [facility] Comment on above: Performed By: #### L 3100.3425, L101.9900, L3000.0800, L3130.0010, L100.9950, L501.6710, L503.0106, L500.4050, L100.0100 ####[facility] [address] [place], [address](421) Eosinophils/100 WBC (Bld) 0.4 % Normal 0-5 [facility] Comment on above: Performed By: #### L 3100.3425, L101.9900, L3000.0800, L3130.0010, L100.9950, L501.6710, L503.0106, L500.4050, L100.0100 ####[facility] [address] [place], [address](831) Erythrocyte distribution width (RBC) [Ratio] 13.4 % Normal 11.6-14.6 [facility] Comment on above: Performed By: #### L 3100.3425, L101.9900, L3000.0800, L3130.0010, L100.9950, L501.6710, L503.0106, L500.4050, L100.0100 ####[facility] [address] [place], [address](325) Hematocrit (Bld) [Volume fraction] 37.4 % Normal 37-47 [facility] Comment on above: Performed By: #### L 3100.3425, L101.9900, L3000.0800, L3130.0010, L100.9950, L501.6710, L503.0106, L500.4050, L100.0100 ####[facility] [address] [place], [address](171) Hemoglobin (Bld) [Mass/Vol] 12.8 g/dL Normal 12.0-15.0 [facility] Comment on above: Performed By: #### L 3100.3425, L101.9900, L3000.0800, L3130.0010, L100.9950, L501.6710, L503.0106, L500.4050, L100.0100 ####[facility] [address] [place], [address] IG% 0.000 Normal 0.0-0.9 [facility] Comment on above: Result Comment: IG% - Immature Granulocytes (promyelocytes, myelocytes and metamyelocytes) > 1% indicates that a LEFT SHIFT is Present. Performed By: #### L 3100.3425, L101.9900, L3000.0800, L3130.0010, L100.9950, L501.6710, L503.0106, L500.4050, L100.0100 ####[facility] [address] [place], [address] Lymphocytes/100 WBC (Bld) 56.3 % High 19-41 [facility] Comment on above: Performed By: #### L 3100.3425, L101.9900, L3000.0800, L3130.0010, L100.9950, L501.6710, L503.0106, L500.4050, L100.0100 ####[facility] [address] [place], [address] MCH (RBC) [Entitic mass] 29.4 pg Normal 27.0-32.0 [facility] Comment on above: Performed By: #### L 3100.3425, L101.9900, L3000.0800, L3130.0010, L100.9950, L501.6710, L503.0106, L500.4050, L100.0100 ####[facility] [address] [place], [address] MCHC (RBC) [Mass/Vol] 34.2 g/dL Normal 32-36 [facility] Comment on above: Performed By: #### L 3100.3425, L101.9900, L3000.0800, L3130.0010, L100.9950, L501.6710, L503.0106, L500.4050, L100.0100 ####[facility] [address] [place], [address] MCV (RBC) [Entitic vol] 86.0 fL Normal 81-99 [facility] Comment on above: Performed By: #### L 3100.3425, L101.9900, L3000.0800, L3130.0010, L100.9950, L501.6710, L503.0106, L500.4050, L100.0100 ####[facility] [address] [place], [address] Monocytes/100 WBC (Bld) 8.0 % Normal 0-10 [facility] Comment on above: Performed By: #### L 3100.3425, L101.9900, L3000.0800, L3130.0010, L100.9950, L501.6710, L503.0106, L500.4050, L100.0100 ####[facility] [address] [place], [address] Neutrophils/100 WBC (Bld) 34.2 % Low 47-70 [facility] Comment on above: Performed By: #### L 3100.3425, L101.9900, L3000.0800, L3130.0010, L100.9950, L501.6710, L503.0106, L500.4050, L100.0100 ####[facility] [address] [place], [address] Nucleated RBC (Bld) [#/Vol] 0 10*3/uL Normal 0-5 [facility] Comment on above: Performed By: #### L 3100.3425, L101.9900, L3000.0800, L3130.0010, L100.9950, L501.6710, L503.0106, L500.4050, L100.0100 ####[facility] [address] [place], [address](776) Platelet mean volume (Bld) [Entitic vol] 9.0 fL Normal 6.2-12.0 [facility] Comment on above: Performed By: #### L 3100.3425, L101.9900, L3000.0800, L3130.0010, L100.9950, L501.6710, L503.0106, L500.4050, L100.0100 ####[facility] [address] [place] [place], [address](034) Platelets (Bld) [#/Vol] 174 10*3/uL Normal 150-450 [facility] Comment on above: Performed By: #### L 3100.3425, L101.9900, L3000.0800, L3130.0010, L100.9950, L501.6710, L503.0106, L500.4050, L100.0100 ####[facility] [address] [place], [address](110) RBC (Bld) [#/Vol] 4.35 10*6/uL Normal 4.2-5.4 [facility] Comment on above: Performed By: #### L 3100.3425, L101.9900, L3000.0800, L3130.0010, L100.9950, L501.6710, L503.0106, L500.4050, L100.0100 ####[facility] [address], [address](172) RDW SD 42.3 fl Normal 35.1-43.9 [facility] Comment on above: Performed By: #### L 3100.3425, L101.9900, L3000.0800, L3130.0010, L100.9950, L501.6710, L503.0106, L500.4050, L100.0100 ####[facility] [address] [place], [address] WBC (Bld) [#/Vol] 4.5 10*3/uL Normal 4.4-11.0 [facility] Comment on above: Performed By: #### L 3100.3425, L101.9900, L3000.0800, L3130.0010, L100.9950, L501.6710, L503.0106, L500.4050, L100.0100 ####[facility] [address] [place], [address] CRPon 10-14-2024 C-REACTIVE PROT < 3.00 Normal 0.0-3.0 [facility] Comment on above: Performed By: #### L 3100.3425, L101.9900, L3000.0800, L3130.0010, L100.9950, L501.6710, L503.0106, L500.4050, L100.0100 ####[facility] [address] [facility] [place], [address] Carbon dioxide, total [Moles /volume] in Central venous bloodOrdered By: Meet Santos on 10-14-2024 CO2 [Moles/Vol] 25.7 mmol/L 21.0-32.0 [facility] Chloride assayOrdered By: Sherlyn Santos on 10-14-2024 Chloride [Moles/Vol] 104 mmol/L 98-108 [facility] Comprehensive Metabolic Prof ilon 10-14-2024 Albumin [Mass/Vol] 4.5 g/dL Normal 3.4-4.8 [facility] Comment on above: Performed By: #### L 3100.3425, L101.9900, L3000.0800, L3130.0010, L100.9950, L501.6710, L503.0106, L500.4050, L100.0100 ####[facility] [address] [place], [address] Albumin/Globulin [Mass ratio] 1.5 {ratio} Normal 0.9-2.4 [facility] Comment on above: Performed By: #### L 3100.3425, L101.9900, L3000.0800, L3130.0010, L100.9950, L501.6710, L503.0106, L500.4050, L100.0100 ####[facility] [address] [place], [address] ALK PHOS 67 U/L Normal 35-104 [facility] Comment on above: Performed By: #### L 3100.3425, L101.9900, L3000.0800, L3130.0010, L100.9950, L501.6710, L503.0106, L500.4050, L100.0100 ####[facility] [address] [place], [address] ALT [Catalytic activity/Vol] 36 U/L High <=34 [facility] Comment on above: Performed By: #### L 3100.3425, L101.9900, L3000.0800, L3130.0010, L100.9950, L501.6710, L503.0106, L500.4050, L100.0100 ####[facility] [address] [place], [address] AST [Catalytic activity/Vol] 42 U/L High <=31 [facility] Comment on above: Performed By: #### L 3100.3425, L101.9900, L3000.0800, L3130.0010, L100.9950, L501.6710, L503.0106, L500.4050, L100.0100 ####[facility] [address] [place], [place], [phone](765) Bilirubin [Mass/Vol] 0.43 mg/dL Normal 0.00-1.30 [facility] Comment on above: Performed By: #### L 3100.3425, L101.9900, L3000.0800, L3130.0010, L100.9950, L501.6710, L503.0106, L500.4050, L100.0100 ####[facility] [address] [place], [address] BUN/CRE 23.1 RATIO High 10-20 [facility] Comment on above: Performed By: #### L 3100.3425, L101.9900, L3000.0800, L3130.0010, L100.9950, L501.6710, L503.0106, L500.4050, L100.0100 ####[facility] [address] [place], [address] Calcium [Mass/Vol] 9.6 mg/dL Normal 7.6-11.0 [facility] Comment on above: Performed By: #### L 3100.3425, L101.9900, L3000.0800, L3130.0010, L100.9950, L501.6710, L503.0106, L500.4050, L100.0100 ####[facility] [address] [place], [address] Chloride [Moles/Vol] 104 mmol/L Normal 98-108 [facility] Comment on above: Performed By: #### L 3100.3425, L101.9900, L3000.0800, L3130.0010, L100.9950, L501.6710, L503.0106, L500.4050, L100.0100 ####[facility] [address] [place], [address] CO2 [Moles/Vol] 25.7 mmol/L Normal 21.0-32.0 [facility] Comment on above: Performed By: #### L 3100.3425, L101.9900, L3000.0800, L3130.0010, L100.9950, L501.6710, L503.0106, L500.4050, L100.0100 ####[facility] [address] [place], [place], [phone](537) Creatinine [Mass/Vol] 0.73 mg/dL Normal 0.70-1.20 [facility] Comment on above: Performed By: #### L 3100.3425, L101.9900, L3000.0800, L3130.0010, L100.9950, L501.6710, L503.0106, L500.4050, L100.0100 ####[facility] [address] [place], [place], [phone] GAP 9 Normal 5-15 [facility] Comment on above: Performed By: #### L 3100.3425, L101.9900, L3000.0800, L3130.0010, L100.9950, L501.6710, L503.0106, L500.4050, L100.0100 ####[facility] [address] [place], [place], [phone](021) GFR/1.73 sq M.predicted among non-blacks MDRD (S/P/Bld) [Vol rate/Area] 86 mL/min/{1.73_m2} Normal >60 [facility] Comment on above: Result Comment: mL/m in/1.73m2 CKD-EPI Creatinine Equation (2020) Performed By: #### L 3100.3425, L101.9900, L3000.0800, L3130.0010, L100.9950, L501.6710, L503.0106, L500.4050, L100.0100 ####[facility] [address] [place], [place], [phone](162) Globulin (S) [Mass/Vol] 3.1 g/dL Normal 2.2-4.2 [facility] Comment on above: Performed By: #### L 3100.3425, L101.9900, L3000.0800, L3130.0010, L100.9950, L501.6710, L503.0106, L500.4050, L100.0100 ####[facility] [address] [place], [address] Glucose [Mass/Vol] 92 mg/dL Normal 70-99 [facility] Comment on above: Performed By: #### L 3100.3425, L101.9900, L3000.0800, L3130.0010, L100.9950, L501.6710, L503.0106, L500.4050, L100.0100 ####[facility] [address] [place], [address] Potassium [Moles/Vol] 3.9 mmol/L Normal 3.3-5.1 [facility] Comment on above: Performed By: #### L 3100.3425, L101.9900, L3000.0800, L3130.0010, L100.9950, L501.6710, L503.0106, L500.4050, L100.0100 ####[facility] [address] [place], [address] Sodium [Moles/Vol] 139 mmol/L Normal 133-145 [facility] Comment on above: Performed By: #### L 3100.3425, L101.9900, L3000.0800, L3130.0010, L100.9950, L501.6710, L503.0106, L500.4050, L100.0100 ####[facility] [address] [place], [address] T PROT 7.5 g/dL Normal 5.9-8.4 [facility] Comment on above: Performed By: #### L 3100.3425, L101.9900, L3000.0800, L3130.0010, L100.9950, L501.6710, L503.0106, L500.4050, L100.0100 ####[facility] [address] [place], [address] Urea nitrogen [Mass/Vol] 17 mg/dL Normal 4-19 [facility] Comment on above: Performed By: #### L 3100.3425, L101.9900, L3000.0800, L3130.0010, L100.9950, L501.6710, L503.0106, L500.4050, L100.0100 ####[facility] [address] [place], [address] Eosinophil percentageOrdered By: Meet Santos on 10-14-2024 Eosinophils/100 WBC (Bld) 0.4 % 0-5 [facility] Erythrocyte Sed Rateon 10-14 SED RATE 5 mm/hr Normal 0-30 [facility] Comment on above: Performed By: #### L 3100.3425, L101.9900, L3000.0800, L3130.0010, L100.9950, L501.6710, L503.0106, L500.4050, L100.0100 ####[facility] [address] [place], [address] Erythrocyte distribution wid th ratioOrdered By: Meet Santos on 10-14-2024 Erythrocyte distribution width (RBC) [Ratio] 13.4 % 11.6-14.6 [facility] Erythrocyte distribution wid th standard deviationOrdered By: Meet Santos on 10-14-2024 Erythrocyte distribution width (RBC) [Ratio] 42.3 fl 35.1-43.9 [facility] Erythrocyte sedimentation ra teOrdered By: Meet Santos on 10-14-2024 ESR (Bld) [Velocity] 5 mm/h 0-30 [facility] Glomerular filtration rate ( GFR) estimation/1.73 sq m using serum, plasma, or whole bOrdered By: Meet Santos on 10-14-2024 GFR/1.73 sq M.predicted among non-blacks MDRD (S/P/Bld) [Vol rate/Area] 86 mL/min/{1.73_m2} >60 [facility] Comment on above: mL/min/1.73m2 CKD-EP I Creatinine Equation (2020) Hematocrit Auto (Bld) [Volum e fraction]Ordered By: Meet Santos on 10-14-2024 Hematocrit (Bld) [Volume fraction] 37.4 % 37-47 [facility] Hemoglobin measurementOrdere d By: Meet Santos on 10-14-2024 Hemoglobin (Bld) [Mass/Vol] 12.8 g/dL 12.0-15.0 [facility] Immature granulocytes/100 WB C Auto (Bld)Ordered By: Meet Santos on 10-14-2024 Immature granulocytes/100 WBC (Bld) 0.000 % 0.0-0.9 [facility] Comment on above: IG% - Immature Granu locytes (promyelocytes, myelocytes and metamyelocytes) > 1% indicates that a LEFT SHIFT is Present. Laboratory - Chemistry and C hemistry - challengeOrdered By: Meet Santos on 10-14-2024 AST [Catalytic activity/Vol] 42 U/L High <32 [facility] MCV (mean corpuscular volume ) determinationOrdered By: Meet Santos on 10-14-2024 MCV (RBC) [Entitic vol] 86.0 fL 81-99 [facility] Mean corpuscular hemoglobin (MCH) determinationOrdered By: Meet Santos on 10-14-2024 MCH (RBC) [Entitic mass] 29.4 pg 27.0-32.0 [facility] Mean corpuscular hemoglobin concentration (MCHC) determinationOrdered By: Meet Santos on 10-14-2024 MCHC (RBC) [Mass/Vol] 34.2 g/dL 32-36 [facility] Mean platelet volume determi nationOrdered By: Meet Santos on 10-14-2024 Platelet mean volume (Bld) [Entitic vol] 9.0 fL 6.2-12.0 [facility] Monocyte percentageOrdered B y: Mete Santos on 10-14-2024 Monocytes/100 WBC (Bld) 8.0 % 0-10 [facility] Neutrophil percentageOrdered By: Meet Santos on 10-14-2024 Neutrophils/100 WBC (Bld) 34.2 % Low 47-70 [facility] Nucleated red blood cell per centageOrdered By: Meet Danielle on 10-14-2024 Nucleated RBC/100 WBC (Bld) [Ratio] 0 % 0-5 [facility] Platelet countOrdered By: Sherlyn Santos on 10-14-2024 Platelets (Bld) [#/Vol] 174 10*3/uL 150-450 [facility] Potassium measurement (mass/ volume)Ordered By: Meet Danielle on 10-14-2024 Potassium (Unsp spec) [Mass/Vol] 3.9 mmol/L 3.3-5.1 [facility] RBC Auto (Bld) [#/Vol]Ordere d By: Meet Danielle on 10-14-2024 RBC (Bld) [#/Vol] 4.35 10*6/uL 4.2-5.4 [facility] Retic Panelon 10-14-2024 IM RET FRACTION 6.20 Normal 3.00-15.90 [facility] Comment on above: Performed By: #### L 3100.3425, L101.9900, L3000.0800, L3130.0010, L100.9950, L501.6710, L503.0106, L500.4050, L100.0100 ####[facility] [address] [place], [place], [id number] RET-HE 32.9 pg Normal 30-35 [facility] Comment on above: Performed By: #### L 3100.3425, L101.9900, L3000.0800, L3130.0010, L100.9950, L501.6710, L503.0106, L500.4050, L100.0100 ####[facility] [address] [place], [place], [phone] Retic Count 1.42 Normal 0.5-1.5 [facility] Comment on above: Performed By: #### L 3100.3425, L101.9900, L3000.0800, L3130.0010, L100.9950, L501.6710, L503.0106, L500.4050, L100.0100 ####[facility] [address] [place], [address] Reticulocyte hemoglobin equi valent (RET-He) measurementOrdered By: Meet Santos on 10-14-2024 Hemoglobin (Reticulocytes) [Entitic mass] 32.9 pg 30-35 [facility] Reticulocytes Auto (Bld) [#/ Vol]Ordered By: Meet Santos on 10-14-2024 Reticulocytes/100 RBC (Bld) 1.42 % 0.5-1.5 [facility] Serum creatinine measurement (mass/volume)Ordered By: Meet Santos on 10-14-2024 Creatinine [Mass/Vol] 0.73 mg/dL 0.70-1.20 [facility] Serum globulin measurementOr dered By: Meet Santos on 10-14-2024 Globulin (S) [Mass/Vol] 3.1 g/dL 2.2-4.2 [facility] Serum glucose measurement (m ass/volume)Ordered By: Meet Santos on 10-14-2024 Glucose [Mass/Vol] 92 mg/dL 70-99 [facility] Serum or plasma C reactive p rotein measurement (mass/volume)Ordered By: Meet Santos on 10-14-2024 CRP [Mass/Vol] mg/L 0.0-3.0 [facility] Serum or plasma alanine hoff otransferase (ALT) measurementOrdered By: Meet Santos on 10-14-2024 ALT [Catalytic activity/Vol] 36 U/L High <35 [facility] Serum or plasma albumin benito urement (mass/volume)Ordered By: Meet Santos on 10-14-2024 Albumin [Mass/Vol] 4.5 g/dL 3.4-4.8 [facility] Serum or plasma albumin/glob ulin mass ratioOrdered By: Meet Santos on 10-14-2024 Albumin/Globulin [Mass ratio] 1.5 {ratio} 0.9-2.4 [facility] Serum or plasma alkaline ruiz sphatase measurementOrdered By: Meet Santos on 10-14-2024 ALP [Catalytic activity/Vol] 67 U/L 35-104 [facility] Serum or plasma calcium benito urement (mass/volume)Ordered By: Meet Santos on 10-14-2024 Calcium [Mass/Vol] 9.6 mg/dL 7.6-11.0 [facility] Serum or plasma urea nitroge n measurement (mass/volume)Ordered By: Meet Santos on 10-14-2024 Urea nitrogen [Mass/Vol] 17 mg/dL 4-19 [facility] Sodium levelOrdered By: Ramakrishna Santos on 10-14-2024 Sodium [Moles/Vol] 139 mmol/L 133-145 [facility] Total proteinOrdered By: Kevin Santos on 10-14-2024 Protein [Mass/Vol] 7.5 g/dL 5.9-8.4 [facility] Vitamin B12on 10-14-2024 Cobalamin (Vitamin B12) [Mass/Vol] 660 pg/mL Normal 180-914 [facility] Comment on above: Performed By: #### L 3100.3425, L101.9900, L3000.0800, L3130.0010, L100.9950, L501.6710, L503.0106, L500.4050, L100.0100 ####[facility] [address] [facility] [place], [place], [id number] Vitamin B12 ser/plasOrdered By: Meet Santos on 10-14-2024 Cobalamin (Vitamin B12) [Mass/Vol] 660 pg/mL 180-914 [facility] White blood cell (WBC) count Ordered By: Meet Santos on 10-14-2024 WBC (Bld) [#/Vol] 4.5 10*3/uL 4.4-11.0 [facility] Bone Survey Comp(Axial Appen d)on 09-08-2024 Bone Survey Comp(Axial Append) [facility] Imaging Services [address] [place] [address] Bone Survey Comp(Axial Append) MR#: [id number] Acct: [id number] Name: OLGA STAFFORD Rep #: [id number] : 1950 F 74 From: Johnathan Gutierrez MD PCP: Dr. 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 COMPARISON: No relevant prior studies available. FINDINGS: BONES/JOINTS: Multilevel endplate degenerative changes and disc of the cervical spine. Grade 1 anterior spondylolisthesis of L4 over L5. Multilevel facet arthropathy of L2 through S1. SOFT TISSUES: Unremarkable. VASCULATURE: Scattered calcified atherosclerotic disease of aorta. OTHER FINDINGS: Mild pulmonary congestion. RAD/Bone Survey Comp(Axial Append) IMPRESSION: Degenerative changes of the spine as above. Otherwise, unremarkable exam. Reading Location: [facility] CC: Dr. Meet Santos MD; Dr. Radha Rodas DO [place]: Signed Normal [facility] ABD Limited w/ Elastographyo n 09-06-2024 ABD Limited w/ Elastography [facility] Imaging Services [address] [place], [place] [address] ABD Limited w/ Elastography MR#: [id number] Acct: [id number] Name: OLGA STAFFORD Rep #: [id number] : 1950 F 74 From: Johnathan Stephens MD PCP: Dr. 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 [employer] S-shear wave elastography was performed for non-invasive assessment of liver tissue stiffness. FINDINGS: Liver: Borderline slightly echogenic. 17.0 cm in length. Gallbladder: Suspected layering sludge. No visualized stones, wall thickening or pericholecystic fluid. Reportedly, sonographic Lewis's was negative. Biliary tree: A cystic area associated with the CBD measures 1.0 x 1.5 x 0.9 cm. Upstream CBD measures 3 mm. Pancreas: Partially obscured by shadowing bowel gas, grossly unremarkable as visualized. Right kidney: Unremarkable. 10.9 cm in length. Other: No visualized free fluid. Hepatic elastography: Number of measurements: Total of 15 measurements obtained in 3 regions, 5 measurements per region. US probe: CA1-7A. EQI median: 6.8 kPa EQI median velocity: 1.5 m/s IQR/Med: 12.2-22.2% (kPa) and 6.2-10.8% (m/s). If the IQR/Med is IQR/median >30% (for kPa) or >15% in m/s, the variance in the measurements is a large and the accuracy of the measurement may be in question. US/ABD Limited w/ Elastography IMPRESSION: 1. Borderline slightly echogenic appearance of the liver which can be seen in early/mild medical liver disease such as steatosis. Correlate with clinical and laboratory evaluation. 2. Liver stiffness is 6.8 kPa. Per the below 2020 SRU criteria, this rules out compensated advanced chronic liver disease in the absence of other known clinical signs. If there are known clinical signs, further testing may be needed for confirmation. 3. 1.5 cm cystic focus associated with the CBD, unclear if this reflects fusiform dilatation of the CBD or a true cystic lesion. Upstream CBD appears normal in caliber. Choledochal cyst is within the differential. Recommend MRI abdomen with and without contrast, and with MRCP. 4. Additional description as above. Assessment is per the Update to the SRU Liver Elastography Consensus Statement (2020) Note that the above assessment of liver fibrosis is vendor-neutral and intended for use in fibrosis related to viral etiologies and non-alcoholic fatty-liver disease (NAFLD); in causes other than viral hepatitis and NAFLD, the cutoff values are currently not well established. In some patients with NAFLD, the cutoff values for cACLD may be lower (7-9 kPa). Note also that in the setting of elevated LFTs, nonfasting or vascular congestion, the stage of lifer fibrosis may be overestimated. Previous SRU reference values: <1.37 m/s (5.7kPa): No to mild fibrosis 1.37 m/s - 2.2 m/s: Moderate to severe fibrosis >2.2 m/s (15kPa): Significant fibrosis / cirrhosis Reading Location: [id number] CC: Dr. Meet Santos MD; Dr. Radha Rodas DO [place]: Signed Normal [facility] Oncology Visit Reporton 08-01 Oncology Visit Report [facility] [address] [place] [address] OFFICE VISIT Date of Service: 08/26/24 1503 MR#: [id number] Acct: [id number] Name: OLGA STAFFORD Rep #: [id number] : 1950 From: Meet Santos MD Age/Sex: 74/F Location: [facility] Status: Signed with Addenda ADDENDUM by Dr. Meet Santos MD on 08/26/24 at 1623 Subjective Chief Complaint Referred for High IgG level. History of Present Illness 74-year-old woman was found to have high IgG level and referred for further evaluation. She denies weight loss, fever, night sweats or pain. ROS Constitutional Constitutional: Reports systems reviewed and no addt'l complaints, except as documented Eyes Eyes: Reports systems reviewed and no addt'l complaints, except as documented ENT HEENT: Reports systems reviewed and no addt'l complaints, except as documented Cardiovascular Cardiovascular: Reports systems reviewed and no addt'l complaints, except as documented Respiratory/Chest Respiratory/Chest: Reports systems reviewed and no addt'l complaints, except as documented Gastrointestinal Gastrointestinal: Reports systems reviewed and no addt'l complaints, except as documented Genitourinary Genitourinary: Reports systems reviewed and no addt'l complaints, except as documented Musculoskeletal Musculoskeletal: Reports systems reviewed and no addt'l complaints, except as documented Integumentary Integumentary: Reports systems reviewed and no addt'l complaints, except as documented Neurologic Neurologic: Reports systems reviewed and no addt'l complaints, except as documented Psychiatric Psychiatric: Reports systems reviewed and no addt'l complaints, except as documented Endocrine Endocrinology: Reports systems reviewed and no addt'l complaints, except as documented Hematologic/Lymphatic Hematologic/Lymphatic: Reports systems reviewed and no addt'l complaints, except as documented Allergic/Immunologic Allergic/Immunologic: Reports systems reviewed and no addt'l complaints, except as documented Assessment and Plan Assessment and Plan (1) Hypergammaglobulinemia, unspecified: Status: Acute Comment: Discussed causes of high IgG level including liver disease, infection vs normal variant. Pt understands. Orders: Orders ABD Limited w/ Elastography 09/06/24 D89.2 - Hypergammaglobulinemia, unspecified Bone Survey Comp(Axial Append) 09/08/24 D89.2 - Hypergammaglobulinemia, unspecified CBC W/Diff, Automated 10/14/24 D89.2 - Hypergammaglobulinemia, unspecified Retic Panel Count 10/14/24 D89.2 - Hypergammaglobulinemia, unspecified Erythrocyte Sed Rate 10/14/24 D89.2 - Hypergammaglobulinemia, unspecified CRP 10/14/24 D89.2 - Hypergammaglobulinemia, unspecified Vitamin B12 10/14/24 D89.2 - Hypergammaglobulinemia, unspecified Comprehensive Metabolic Profil 10/14/24 D89.2 - Hypergammaglobulinemia, unspecified Summit Lambda Light Chains 10/14/24 D89.2 - Hypergammaglobulinemia, unspecified Immunoglobulins G/A/M 10/14/24 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 [facility] Medical History (Updated 08/26/24 @ 16:[address] Meet Santos MD) Knee pain Surgical History History of appendectomy Hx of appendectomy Family History Mother Hypertension CVA (cerebral vascular accident) Father Hypertension Prostate cancer Social History Smoking Status: Never smoker alcohol intake: current alcohol intake frequency: holidays/special occasions only substance use type: does not use what type of physical activity do you participate in: walking and bicycling Intake Vital Signs 01/30/24 06:11 08/26/24 15:06 08/26/24 15:08 Height 5 ft 2 in 5 ft 2 in 5 ft 2 in Weight: 60.129 kg BMI 24.2 BP 119/76 Blood Pressure Location Lt brachial Position Sitting Respiration 18 Pulse 71 Pulse Source Monitor Temp 98.4 F Temperature Source Temporal Artery Pulse Oximetry (%) 98 Oxygen Delivery Method room air Intake Is patient in pain?: No Allergies Penicillins Allergy (Verified 08/26/24 15:04) Hives Medications ???Medication ???Instructions ???Recorded ???Confirmed ???Type lhexbbsd-xzm-leba-FA-Ca carb-vit K 1 tab PO DAILY 03/25/19 08/26/24 History 18 mg iron-400 mc (more content not included)... Normal [facility] IgG Subclasseson 07-13-2024 IgG, SUBCLASS 1 1170 mg/dL High 248-810 [facility] Comment on above: Performed By: #### L 3200.0500 ####[facility] [address] [place], [address] IgG, SUBCLASS 2 102 mg/dL Low 130-555 [facility] Comment on above: Performed By: #### L 3200.0500 ####[facility] [address] [place] [place], [address] IgG, SUBCLASS 3 102 mg/dL Normal 15-102 [facility] Comment on above: Performed By: #### L 3200.0500 ####[facility] [address] [place], [place], [address] IgG, SUBCLASS 4 19 mg/dL Normal 2-96 [facility] Comment on above: Result Comment: Perf ormed at: - [facility] [address], [place] [id number] Data Systems Analyst: Cristhian Nath PhD, Phone: [phone] Performed By: #### L 3200.0500 ####[facility] [address] [place], [address] IGG,QUANT 1666 mg/dL High 586-1602 [facility] Comment on above: Performed By: #### L 3200.0500 ####[facility] [address] [place], [address] IgG [Mass/Vol]Ordered By: Arelis Mena on 07-12-2024 Immunoglobulin G Total 1666 mg/dL High 586-1602 [facility] IgG subclass 1 (S) [Mass/Vol ]Ordered By: Azul Mena on 07-12-2024 Immunoglobulin G1 1170 mg/dL High 248-810 [facility] IgG subclass 2 (S) [Mass/Vol ]Ordered By: Azul Mena on 07-12-2024 Immunoglobulin G2 102 mg/dL Low 130-555 [facility] IgG subclass 3 (S) [Mass/Vol ]Ordered By: Azul Mena on 07-12-2024 Immunoglobulin G3 102 mg/dL 15-102 [facility] Immunoglobulin G4 measuremen tOrdered By: Azul Mena on 07-12-2024 Immunoglobulin G4 19 mg/dL 2-96 [facility] Comment on above: Performed at: [facility] [address], [place] [id number] Director: Cristhian Nath PhD, Phone: [phone] Serum IgG subclass 1 measure ment (mass/volume)Ordered By: Azul Mena on 07-12-2024 IgG subclass 1 (S) [Mass/Vol] 1170 mg/dL High 248-810 [facility] Serum IgG subclass 2 measure ment (mass/volume)Ordered By: Azul Mena on 07-12-2024 IgG subclass 2 (S) [Mass/Vol] 102 mg/dL Low 130-555 [facility] Serum IgG subclass 3 measure ment (mass/volume)Ordered By: Azul Mena on 07-12-2024 IgG subclass 3 (S) [Mass/Vol] 102 mg/dL 15-102 [facility] Serum or plasma IgG measurem ent (mass/volume)Ordered By: Azul Mena on 07-12-2024 IgG [Mass/Vol] 1666 mg/dL High 586-1602 [facility] DIVYA Comprehensive Panelon ANTI-DNA (DS)AB Normal [facility] Comment on above: Result Comment: TEST RESULTS LIMITS Antinuclear Ab 9 by Multiplex Anti-DNA (DS) Ab Qn <1 IU/mL 0-9 Negative <5 Equivocal 5 - 9 Positive >9 ALL SOURCE COLLECTION MANAGER Antibodies 0.3 AI 0.0-0.9 Baez Antibodies <0.2 AI 0.0-0.9 Antiscleroderma-70 Antibodies <0.2 AI 0.0-0.9 Sjogren's Anti-SS-A <0.2 AI 0.0-0.9 Sjogren's Anti-SS-B <0.2 AI 0.0-0.9 Antichromatin Antibodies <0.2 AI 0.0-0.9 Anti-Sherlyn-1 <0.2 AI 0.0-0.9 Anti-Centromere B Antibodies <0.2 AI 0.0-0.9 See below: Autoantibody Disease Association Condition Frequency --------- Antinuclear Antibody, SLE, mixed connective Direct (DIVYA-D) tissue diseases --------- dsDNA SLE 40 - 60% --------- Chromatin Drug induced SLE 90% SLE 48 - 97% --------- SSA (Ro) SLE 25 - 35% Sjogren's Syndrome 40 - 70% Lupus 100% --------- SSB (La) SLE 10% Sjogren's Syndrome 30% --------- Sm (anti-Baez) SLE 15 - 30% --------- ALL SOURCE COLLECTION MANAGER Mixed Connective Tissue Disease 95% (U1 nRNP, SLE 30 - 50% anti-ribonucleoprotein) Polymyositis and/or Dermatomyositis 20% --------- Scl-70 (antiDNA Scleroderma (diffuse) 20 - 35% topoisomerase) Crest 13% --------- Sherlyn-1 Polymyositis and/or Dermatomyositis 20 - 40% --------- Centromere B Scleroderma - Crest variant 80% TESTING PERFORMED AT [facility]. ORIGINAL REPORT ON FILE IN LAB CONTAINS ADDITIONAL TEST SITE INFORMATION. Performed By: #### L 3100.5440 ####[facility] [address] [place], [place], [address] ANTISCLERODERM TNP Normal [facility] Comment on above: Performed By: #### L 3100.5440 ####[facility] [address] [place], [address] ANCAon 07-08-2024 Atypical pANCA <1:20 Normal Neg:<1:20 [facility] Comment on above: Result Comment: The atypical pANCA pattern has been observed in a significant percentage of patients with ulcerative colitis, primary sclerosing cholangitis and autoimmune hepatitis. Performed By: #### L 3300.1800, L3300.1200, L3410.2400, L101.9900, L501.2450, L501.6710, L5500.0550, L504.2610, L3200.1100, L501.2400, L500.4050, L5500.0300 ####[facility] [address] [place], [place], [address] Cytoplasmic Ab <1:20 Normal Neg:<1:20 [facility] Comment on above: Performed By: #### L 3300.1800, L3300.1200, L3410.2400, L101.9900, L501.2450, L501.6710, L5500.0550, L504.2610, L3200.1100, L501.2400, L500.4050, L5500.0300 ####[facility] [address] [facility] [address] [place], [place], [id number] Perinuclear Ab. <1:20 Normal Neg:<1:20 [facility] Comment on above: Result Comment: The presence of positive fluorescence exhibiting P-ANCA or C-ANCA patterns alone is not specific for the diagnosis of Zulma's Granulomatosis (WG) or microscopic polyangiitis. Decisions about treatment should not be based solely on ANCA IFA results. The International ANCA Group Consensus recommends follow up testing of positive sera with both NV- 3 and MPO-ANCA enzyme immunoassays. As many as 5% serum samples are positive only by EIA. Ref. AM J Clin Pathol 1999;111:507-513. Performed By: #### L 3300.1800, L3300.1200, L3410.2400, L101.9900, L501.2450, L501.6710, L5500.0550, L504.2610, L3200.1100, L501.2400, L500.4050, L5500.0300 ####[facility] [address] [facility]. [place], [place], [address] Allergen, Mini-Raston 2024 A. ALTERNATA <0.10 Normal Class 0 [facility] Comment on above: Performed By: #### L 3300.1800, L3300.1200, L3410.2400, L101.9900, L501.2450, L501.6710, L5500.0550, L504.2610, L3200.1100, L501.2400, L500.4050, L5500.0300 #### [facility] [address] [place], [place], [id number] BERMUDA GRASS <0.10 Normal Class 0 [facility] Comment on above: Performed By: #### L 3300.1800, L3300.1200, L3410.2400, L101.9900, L501.2450, L501.6710, L5500.0550, L504.2610, L3200.1100, L501.2400, L500.4050, L5500.0300 #### [facility] [address] [place], [place], [phone] VIDYA PERSAUD <0.10 Normal Class 0 [facility] Comment on above: Performed By: #### L 3300.1800, L3300.1200, L3410.2400, L101.9900, L501.2450, L501.6710, L5500.0550, L504.2610, L3200.1100, L501.2400, L500.4050, L5500.0300 #### [facility] [address] [place], [place], [address] CAT HAIR/DANDER <0.10 Normal Class 0 [facility] Comment on above: Performed By: #### L 3300.1800, L3300.1200, L3410.2400, L101.9900, L501.2450, L501.6710, L5500.0550, L504.2610, L3200.1100, L501.2400, L500.4050, L5500.0300 #### [facility] [address] [place], [place], [phone] COMMENT Comment Normal . [facility] Comment on above: Result Comment: Annie esposito of Specific IgE Class Description of Class ----- < 0.10 0 Negative 0.10 - 0.31 0/I Equivocal/Low 0.32 - 0.55 I Low 0.56 - 1.40 II Moderate 1.41 - 3.90 III High 3.91 - 19.00 IV Very High 19.01 - 100.00 V Very High >100.00 Very High Performed By: #### L 3300.1800, L3300.1200, L3410.2400, L101.9900, L501.2450, L501.6710, L5500.0550, L504.2610, L3200.1100, L501.2400, L500.4050, L5500.0300 #### [facility] [address] [place], [place], [id number] D FARINAE MITE <0.10 Normal Class 0 [facility] Comment on above: Performed By: #### L 3300.1800, L3300.1200, L3410.2400, L101.9900, L501.2450, L501.6710, L5500.0550, L504.2610, L3200.1100, L501.2400, L500.4050, L5500.0300 #### [facility] [address] [place], [place], [phone] D PTERONYSSINUS <0.10 Normal Class 0 [facility] Comment on above: Performed By: #### L 3300.1800, L3300.1200, L3410.2400, L101.9900, L501.2450, L501.6710, L5500.0550, L504.2610, L3200.1100, L501.2400, L500.4050, L5500.0300 #### [facility] [address] [place], [place], [phone] DOG EPITHELIA <0.10 Normal Class 0 [facility] Comment on above: Performed By: #### L 3300.1800, L3300.1200, L3410.2400, L101.9900, L501.2450, L501.6710, L5500.0550, L504.2610, L3200.1100, L501.2400, L500.4050, L5500.0300 #### [facility] [address] [place], [place], [address] ELM,AMER WHITE <0.10 Normal Class 0 [facility] Comment on above: Performed By: #### L 3300.1800, L3300.1200, L3410.2400, L101.9900, L501.2450, L501.6710, L5500.0550, L504.2610, L3200.1100, L501.2400, L500.4050, L5500.0300 #### [facility] [address] [place], [place], [phone] Mouse Urine <0.10 Normal Class 0 [facility] Comment on above: Result Comment: Perf ormed at: [facility] [address] [id number] Data Systems Analyst: Talia Avendano MD, Phone: [phone] Performed By: #### L 3300.1800, L3300.1200, L3410.2400, L101.9900, L501.2450, L501.6710, L5500.0550, L504.2610, L3200.1100, L501.2400, L500.4050, L5500.0300 #### [facility] [address] [place], [place], [phone] OAK, WHITE <0.10 Normal Class 0 [facility] Comment on above: Performed By: #### L 3300.1800, L3300.1200, L3410.2400, L101.9900, L501.2450, L501.6710, L5500.0550, L504.2610, L3200.1100, L501.2400, L500.4050, L5500.0300 #### [facility] [address] [place], [place], [phone] PLANTAIN,ENGLSH <0.10 Normal Class 0 [facility] Comment on above: Performed By: #### L 3300.1800, L3300.1200, L3410.2400, L101.9900, L501.2450, L501.6710, L5500.0550, L504.2610, L3200.1100, L501.2400, L500.4050, L5500.0300 #### [facility] [address] [place], [place], [phone] RAGWEED /COM <0.10 Normal Class 0 [facility] Comment on above: Performed By: #### L 3300.1800, L3300.1200, L3410.2400, L101.9900, L501.2450, L501.6710, L5500.0550, L504.2610, L3200.1100, L501.2400, L500.4050, L5500.0300 #### [facility] [address] [place], [address] Celiac Disease Profileon ENDOMYSIAL IGA Negative Normal Negative [facility] Comment on above: Performed By: #### L 3300.1800, L3300.1200, L3410.2400, L101.9900, L501.2450, L501.6710, L5500.0550, L504.2610, L3200.1100, L501.2400, L500.4050, L5500.0300 ####[facility] [address] [place], [address] tTG IGA <2 Normal 0-3 [facility] Comment on above: Result Comment: Nega tive 0 - 3 Weak Positive 4 - 10 Positive >10 Tissue Transglutaminase (tTG) has been identified as the endomysial antigen. Studies have demonstr- ated that endomysial IgA antibodies have over 99% specificity for gluten sensitive enteropathy. Performed By: #### L 3300.1800, L3300.1200, L3410.2400, L101.9900, L501.2450, L501.6710, L5500.0550, L504.2610, L3200.1100, L501.2400, L500.4050, L5500.0300 ####[facility] [address] [place], [address] Gastrin, Serumon 07-08-2024 GASTRIN 46 pg/mL Normal 0-115 [facility] Comment on above: Result Comment: Siem ens Immulite 2000 Immunochemiluminometric assay (ICMA) Values obtained with different assay methods or kits cannot be used interchangeably. Results cannot be interpreted as absolute evidence of the presence or absence of malignant disease. Performed at: [address] [id number] Data Systems Analyst: Cristhian Nath PhD, Phone: [phone] Performed at: [address] [id number] Data Systems Analyst: Talia Avendano MD, Phone: [phone] Performed By: #### L 3300.1800, L3300.1200, L3410.2400, L101.9900, L501.2450, L501.6710, L5500.0550, L504.2610, L3200.1100, L501.2400, L500.4050, L5500.0300 ####[facility] [address] [place], [address] Immunoglobulins G/A/M/David IMMUNOGLOB A QN 185 mg/dL Normal 64-422 [facility] Comment on above: Order Comment: Y Performed By: #### L 3300.1800, L3300.1200, L3410.2400, L101.9900, L501.2450, L501.6710, L5500.0550, L504.2610, L3200.1100, L501.2400, L500.4050, L5500.0300 ####[facility] [address] [place], [address] IMMUNOGLOB E QN 29 IU/mL Normal 6-495 [facility] Comment on above: Order Comment: Y Performed By: #### L 3300.1800, L3300.1200, L3410.2400, L101.9900, L501.2450, L501.6710, L5500.0550, L504.2610, L3200.1100, L501.2400, L500.4050, L5500.0300 ####[facility] [address] [place], [address] IMMUNOGLOB G QN 1644 mg/dL High 586-1602 [facility] Comment on above: Order Comment: Y Performed By: #### L 3300.1800, L3300.1200, L3410.2400, L101.9900, L501.2450, L501.6710, L5500.0550, L504.2610, L3200.1100, L501.2400, L500.4050, L5500.0300 ####[facility] [address] [place], [place], [address](627) IMMUNOGLOB M QN 111 mg/dL Normal 26-217 [facility] Comment on above: Order Comment: Y Performed By: #### L 3300.1800, L3300.1200, L3410.2400, L101.9900, L501.2450, L501.6710, L5500.0550, L504.2610, L3200.1100, L501.2400, L500.4050, L5500.0300 ####[facility] [address] [place], [address] L5500.0550on 07-08-2024 BEEF <0.10 Normal Class 0 [facility] Comment on above: Performed By: #### L 3300.1800, L3300.1200, L3410.2400, L101.9900, L501.2450, L501.6710, L5500.0550, L504.2610, L3200.1100, L501.2400, L500.4050, L5500.0300 ####[facility] [address] [place], [place], [address]) CHOCOLATE <0.10 Normal Class 0 [facility] Comment on above: Performed By: #### L 3300.1800, L3300.1200, L3410.2400, L101.9900, L501.2450, L501.6710, L5500.0550, L504.2610, L3200.1100, L501.2400, L500.4050, L5500.0300 ####[facility] [address] [place], [address] CODFISH <0.10 Normal Class 0 [facility] Comment on above: Performed By: #### L 3300.1800, L3300.1200, L3410.2400, L101.9900, L501.2450, L501.6710, L5500.0550, L504.2610, L3200.1100, L501.2400, L500.4050, L5500.0300 ####[facility] [address] [place], [address] CORN <0.10 Normal Class 0 [facility] Comment on above: Performed By: #### L 3300.1800, L3300.1200, L3410.2400, L101.9900, L501.2450, L501.6710, L5500.0550, L504.2610, L3200.1100, L501.2400, L500.4050, L5500.0300 ####[facility] [address] [place], [address] EGG, WHOLE <0.10 Normal Class 0 [facility] Comment on above: Performed By: #### L 3300.1800, L3300.1200, L3410.2400, L101.9900, L501.2450, L501.6710, L5500.0550, L504.2610, L3200.1100, L501.2400, L500.4050, L5500.0300 ####[facility] [address] [place], [address] MILK (COW) <0.10 Normal Class 0 [facility] Comment on above: Performed By: #### L 3300.1800, L3300.1200, L3410.2400, L101.9900, L501.2450, L501.6710, L5500.0550, L504.2610, L3200.1100, L501.2400, L500.4050, L5500.0300 ####[facility] [address] [place], [place], [id number] MUSSELS <0.10 Normal Class 0 [facility] Comment on above: Performed By: #### L 3300.1800, L3300.1200, L3410.2400, L101.9900, L501.2450, L501.6710, L5500.0550, L504.2610, L3200.1100, L501.2400, L500.4050, L5500.0300 ####[facility] [address] [place], [place], [id number] PEANUT <0.10 Normal Class 0 [facility] Comment on above: Performed By: #### L 3300.1800, L3300.1200, L3410.2400, L101.9900, L501.2450, L501.6710, L5500.0550, L504.2610, L3200.1100, L501.2400, L500.4050, L5500.0300 ####[facility] [address] [place], [place], [phone] PORK <0.10 Normal Class 0 [facility] Comment on above: Performed By: #### L 3300.1800, L3300.1200, L3410.2400, L101.9900, L501.2450, L501.6710, L5500.0550, L504.2610, L3200.1100, L501.2400, L500.4050, L5500.0300 ####[facility] [address] [place], [address] SALMON <0.10 Normal Class 0 [facility] Comment on above: Performed By: #### L 3300.1800, L3300.1200, L3410.2400, L101.9900, L501.2450, L501.6710, L5500.0550, L504.2610, L3200.1100, L501.2400, L500.4050, L5500.0300 ####[facility] [address] [place], [place], [address] SHRIMP <0.10 Normal Class 0 [facility] Comment on above: Performed By: #### L 3300.1800, L3300.1200, L3410.2400, L101.9900, L501.2450, L501.6710, L5500.0550, L504.2610, L3200.1100, L501.2400, L500.4050, L5500.0300 ####[facility] [id number] [place], [place], [id number] SOYBEAN <0.10 Normal Class 0 [facility] Comment on above: Performed By: #### L 3300.1800, L3300.1200, L3410.2400, L101.9900, L501.2450, L501.6710, L5500.0550, L504.2610, L3200.1100, L501.2400, L500.4050, L5500.0300 ####[facility] [id number] [place] [place], [place], [id number] TUNA <0.10 Normal Class 0 [facility] Comment on above: Performed By: #### L 3300.1800, L3300.1200, L3410.2400, L101.9900, L501.2450, L501.6710, L5500.0550, L504.2610, L3200.1100, L501.2400, L500.4050, L5500.0300 ####[facility] [address] [place], [place], [id number] WHEAT <0.10 Normal Class 0 [facility] Comment on above: Performed By: #### L 3300.1800, L3300.1200, L3410.2400, L101.9900, L501.2450, L501.6710, L5500.0550, L504.2610, L3200.1100, L501.2400, L500.4050, L5500.0300 ####[facility] [address] [place], [address] Albumin to globulin ratioOrd ered By: Alejandro Roy on 07-05-2024 Albumin/Globulin [Mass ratio] 1.0 {ratio} 0.9-2.4 [facility] Alternaria alternata IgE ser umOrdered By: Alejandro Roy on 07-05-2024 Alternaria alternata IgE Allergen <0.10 kU/L Class 0 [facility] Amylaseon 07-05-2024 AISHWARYA 67 U/L Normal 25-115 [facility] Comment on above: Performed By: #### L 3300.1800, L3300.1200, L3410.2400, L101.9900, L501.2450, L501.6710, L5500.0550, L504.2610, L3200.1100, L501.2400, L500.4050, L5500.0300 #### [facility] [address] [place], [address] Atypical perinuclear antineu trophil cytoplasmic antibodies measurementOrdered By: Alejandro Roy on 07-05-2024 Atypical p-ANCA <1:20 titer Neg:<1:20 [facility] Comment on above: The atypical pANCA p attern has been observed in asignificant percentage of patients with ulcerative colitis,primary sclerosing cholangitis and autoimmune hepatitis. Beef IgE Qn (S)Ordered By: Mathieu Roy on 07-05-2024 Beef Allergen (RAST) <0.10 kU/L Class 0 [facility] Bermuda grass IgE Qn (S)Orde red By: Alejandro Roy on 07-05-2024 Bermuda Grass Allergen <0.10 kU/L Class 0 [facility] Bilirubin, totalOrdered By: Alejandro Roy on 07-05-2024 Bilirubin [Mass/Vol] 0.40 mg/dL 0.20-1.00 [facility] Comment on above: For patients on eltr ombopag therapy, use of Dimension [place] TBIL is not recommended. Blood urea nitrogen (BUN)/cr eatinine ratioOrdered By: Alejandro Roy on 07-05-2024 Urea nitrogen/Creatinine [Mass ratio] 30.7 mg/mg High 10-20 [facility] C-reactive protein measureme nt by high sensitivity methodOrdered By: Alejandro Roy on 07-05-2024 C-Reactive Protein Extended Range < 2.90 mg/L 0.0-3.0 [facility] Comment on above: C-Reactive Protein ( CRP) provides useful information for thediagnosis, therapy and monitoring of inflammatory processesand associated diseases. For the evaluation of Relative Riskfor Cardiovascular Disease, a High Sensitivity CRP (HSCRP)should be ordered. CRPon 07-05-2024 C-REACTIVE PROT < 2.90 Normal 0.0-3.0 [facility] Comment on above: Result Comment: C-Re active Protein (CRP) provides useful information for the diagnosis, therapy and monitoring of inflammatory processes and associated diseases. For the evaluation of Relative Risk for Cardiovascular Disease, a High Sensitivity CRP (HSCRP) should be ordered. Performed By: #### L 3300.1800, L3300.1200, L3410.2400, L101.9900, L501.2450, L501.6710, L5500.0550, L504.2610, L3200.1100, L501.2400, L500.4050, L5500.0300 #### [facility] [address] [place], [place], [id number] Carbon dioxide measurementOr dered By: Alejandro Roy on 07-05-2024 CO2 [Moles/Vol] 26.0 mmol/L 21.0-32.0 [facility] Cat dander IgE Qn (S)Ordered By: Alejandro Roy on 07-05-2024 Cat Dander IgE Allergen <0.10 kU/L Class 0 [facility] Centromere B antibody assayO rdered By: Alejandro Roy on 07-05-2024 Centromere B Antibody TNP [facility] Comment on above: Test not performed Chloride measurementOrdered By: Alejandro Friend on 07-05-2024 Chloride [Moles/Vol] 108 mmol/L High 98-107 [facility] Chocolate IgE serumOrdered B y: Alejandroraquel Roy on 07-05-2024 Chocolate Allergen (RAST) <0.10 kU/L Class 0 [facility] Chromatin antibody assayOrde red By: Alejandro Friend on 07-05-2024 Antichromatin Antibodies TNP [facility] Comment on above: Test not performed Codfish IgE Qn (S)Ordered By : Alejandro Roy on 07-05-2024 Codfish Allergen (RAST) <0.10 kU/L Class 0 [facility] Comprehensive Metabolic Prof ilon 07-05-2024 Albumin [Mass/Vol] 4.0 g/dL Normal 3.2-5.0 [facility] Comment on above: Performed By: #### L 3300.1800, L3300.1200, L3410.2400, L101.9900, L501.2450, L501.6710, L5500.0550, L504.2610, L3200.1100, L501.2400, L500.4050, L5500.0300 #### [facility] [address] [place], [place], [id number] Albumin/Globulin [Mass ratio] 1.0 {ratio} Normal 0.9-2.4 [facility] Comment on above: Performed By: #### L 3300.1800, L3300.1200, L3410.2400, L101.9900, L501.2450, L501.6710, L5500.0550, L504.2610, L3200.1100, L501.2400, L500.4050, L5500.0300 #### [facility] [address] [place], [place], [id number] ALK P 69 U/L Normal 45-117 [facility] Comment on above: Performed By: #### L 3300.1800, L3300.1200, L3410.2400, L101.9900, L501.2450, L501.6710, L5500.0550, L504.2610, L3200.1100, L501.2400, L500.4050, L5500.0300 #### [facility] [address] [place], [address] ALT [Catalytic activity/Vol] 43 U/L Normal 13-56 [facility] Comment on above: Performed By: #### L 3300.1800, L3300.1200, L3410.2400, L101.9900, L501.2450, L501.6710, L5500.0550, L504.2610, L3200.1100, L501.2400, L500.4050, L5500.0300 #### [facility] [address] [facility] [place], [address] AST [Catalytic activity/Vol] 41 U/L High 15-37 [facility] Comment on above: Performed By: #### L 3300.1800, L3300.1200, L3410.2400, L101.9900, L501.2450, L501.6710, L5500.0550, L504.2610, L3200.1100, L501.2400, L500.4050, L5500.0300 #### [facility] [address] [facility] [place], [place], [id number] Bilirubin [Mass/Vol] 0.40 mg/dL Normal 0.20-1.00 [facility] Comment on above: Result Comment: For patients on eltrombopag therapy, use of Dimension [place] TBIL is not recommended. Performed By: #### L 3300.1800, L3300.1200, L3410.2400, L101.9900, L501.2450, L501.6710, L5500.0550, L504.2610, L3200.1100, L501.2400, L500.4050, L5500.0300 #### [facility] [address] [place], [address] BUN/CRE 30.7 RATIO High 10-20 [facility] Comment on above: Performed By: #### L 3300.1800, L3300.1200, L3410.2400, L101.9900, L501.2450, L501.6710, L5500.0550, L504.2610, L3200.1100, L501.2400, L500.4050, L5500.0300 #### [facility] [address] [place], [address] CA,Total 9.1 mg/dL Normal 8.5-10.1 [facility] Comment on above: Performed By: #### L 3300.1800, L3300.1200, L3410.2400, L101.9900, L501.2450, L501.6710, L5500.0550, L504.2610, L3200.1100, L501.2400, L500.4050, L5500.0300 #### [facility] [address] [place], [address] Chloride [Moles/Vol] 108 mmol/L High 98-107 [facility] Comment on above: Performed By: #### L 3300.1800, L3300.1200, L3410.2400, L101.9900, L501.2450, L501.6710, L5500.0550, L504.2610, L3200.1100, L501.2400, L500.4050, L5500.0300 #### [facility] [address] [place], [address] CO2 [Moles/Vol] 26.0 mmol/L Normal 21.0-32.0 [facility] Comment on above: Performed By: #### L 3300.1800, L3300.1200, L3410.2400, L101.9900, L501.2450, L501.6710, L5500.0550, L504.2610, L3200.1100, L501.2400, L500.4050, L5500.0300 #### [facility] [address] [place], [address] Creatinine [Mass/Vol] 0.68 mg/dL Normal 0.55-1.02 [facility] Comment on above: Result Comment: The validity of the calculated GFR GFRAA in patients over 70 years has not been determined. Clinical correlation is essential. Performed By: #### L 3300.1800, L3300.1200, L3410.2400, L101.9900, L501.2450, L501.6710, L5500.0550, L504.2610, L3200.1100, L501.2400, L500.4050, L5500.0300 #### [facility] [address] [place], [address] EST GFR - AA 108 mL/min Normal >60 [facility] Comment on above: Result Comment: Afri can Solomon Islander GFR Calc Performed By: #### L 3300.1800, L3300.1200, L3410.2400, L101.9900, L501.2450, L501.6710, L5500.0550, L504.2610, L3200.1100, L501.2400, L500.4050, L5500.0300 #### [facility] [address] [place], [address] GAP 5 Normal 5-15 [facility] Comment on above: Performed By: #### L 3300.1800, L3300.1200, L3410.2400, L101.9900, L501.2450, L501.6710, L5500.0550, L504.2610, L3200.1100, L501.2400, L500.4050, L5500.0300 #### [facility] [address] [place], [address] GFR/1.73 sq M.predicted among non-blacks MDRD (S/P/Bld) [Vol rate/Area] 89 mL/min/{1.73_m2} Normal >60 [facility] Comment on above: Result Comment: Non- GFR Calc Performed By: #### L 3300.1800, L3300.1200, L3410.2400, L101.9900, L501.2450, L501.6710, L5500.0550, L504.2610, L3200.1100, L501.2400, L500.4050, L5500.0300 #### [facility] [address] [place], [address] Globulin (S) [Mass/Vol] 4.0 g/dL Normal 2.2-4.2 [facility] Comment on above: Performed By: #### L 3300.1800, L3300.1200, L3410.2400, L101.9900, L501.2450, L501.6710, L5500.0550, L504.2610, L3200.1100, L501.2400, L500.4050, L5500.0300 #### [facility] [address] [place], [place], [id number] Glucose [Mass/Vol] 99 mg/dL Normal 74-106 [facility] Comment on above: Performed By: #### L 3300.1800, L3300.1200, L3410.2400, L101.9900, L501.2450, L501.6710, L5500.0550, L504.2610, L3200.1100, L501.2400, L500.4050, L5500.0300 #### [facility] [address] [place], [place], [phone] Potassium [Moles/Vol] 3.6 mmol/L Normal 3.5-5.1 [facility] Comment on above: Performed By: #### L 3300.1800, L3300.1200, L3410.2400, L101.9900, L501.2450, L501.6710, L5500.0550, L504.2610, L3200.1100, L501.2400, L500.4050, L5500.0300 #### [facility] [address] [place], [address] Sodium [Moles/Vol] 139 mmol/L Normal 136-145 [facility] Comment on above: Performed By: #### L 3300.1800, L3300.1200, L3410.2400, L101.9900, L501.2450, L501.6710, L5500.0550, L504.2610, L3200.1100, L501.2400, L500.4050, L5500.0300 #### [facility] [address] [place], [address] T PROT 8.0 g/dL Normal 6.4-8.2 [facility] Comment on above: Performed By: #### L 3300.1800, L3300.1200, L3410.2400, L101.9900, L501.2450, L501.6710, L5500.0550, L504.2610, L3200.1100, L501.2400, L500.4050, L5500.0300 #### [facility] [address] [place], [address] Urea nitrogen [Mass/Vol] 21 mg/dL High 7-18 [facility] Comment on above: Performed By: #### L 3300.1800, L3300.1200, L3410.2400, L101.9900, L501.2450, L501.6710, L5500.0550, L504.2610, L3200.1100, L501.2400, L500.4050, L5500.0300 #### [facility] [address] [place], [address] Sheldon IgE Qn (S)Ordered By: Mathieu Roy on 07-05-2024 Sheldon Allergen (RAST) <0.10 kU/L Class 0 [facility] Cow milk IgE Qn (S)Ordered B y: Alejandroraquel Roy on 07-05-2024 Cow's Milk Allergen <0.10 kU/L Class 0 [facility] DNA double strand Ab Qn (S)O rdered By: Alejandro Kirill on 07-05-2024 Anti-Double Strand DNA Antibody See comment [facility] Comment on above: TEST RESULTS LIMITSA ntinuclear Ab 9 by Multiplex Anti-DNA (DS) Ab Qn <1 IU/mL 0-9 Negative <5 Equivocal 5 - 9 Positive >9 ALL SOURCE COLLECTION MANAGER Antibodies 0.3 AI 0.0-0.9 Baez Antibodies <0.2 AI 0.0-0.9 Antiscleroderma-70 Antibodies <0.2 AI 0.0-0.9 Sjogren's Anti-SS-A <0.2 AI 0.0-0.9 Sjogren's Anti-SS-B <0.2 AI 0.0-0.9 Antichromatin Antibodies <0.2 AI 0.0-0.9 Anti-Sherlyn-1 <0.2 AI 0.0-0.9 Anti-Centromere B Antibodies <0.2 AI 0.0-0.9 See below: Autoantibody Disease Association Condition Frequency ---------Antinuclear Antibody, SLE, mixed connectiveDirect (DIVYA-D) tissue diseases ---------dsDNA SLE 40 - 60% ---------Chromatin Drug induced SLE 90% SLE 48 - 97% ---------SSA (Ro) SLE 25 - 35% Sjogren's Syndrome 40 - 70% Lupus 100% ---------SSB (La) SLE 10% Sjogren's Syndrome 30% ---------Sm (anti-Baez) SLE 15 - 30% ---------ALL SOURCE COLLECTION MANAGER Mixed Connective Tissue Disease 95%(U1 nRNP, SLE 30 - 50%anti-ribonucleoprotein) Polymyositis and/or Dermatomyositis 20% ---------Scl-70 (antiDNA Scleroderma (diffuse) 20 - 35%topoisomerase) Crest 13% ---------Sherlyn-1 Polymyositis and/or Dermatomyositis 20 - 40% ---------Centromere B Scleroderma - Crest variant 80% TESTING PERFORMED AT [facility]. ORIGINAL REPORT ON FILE IN LAB CONTAINS ADDITIONAL TEST SITE INFORMATION. Dog epithelium IgE Qn (S)Ord ered By: Alejandro Roy on 07-05-2024 Dog Epithelia Allergen <0.10 kU/L Class 0 [facility] Endomysial IgA antibody assa yOrdered By: Alejandro Roy on 07-05-2024 Endomysial IgA Antibody Negative Negative [facility] Erythrocyte Sed Rateon 07-05 SED RATE 3 mm/hr Normal 0-30 [facility] Comment on above: Performed By: #### L 3300.1800, L3300.1200, L3410.2400, L101.9900, L501.2450, L501.6710, L5500.0550, L504.2610, L3200.1100, L501.2400, L500.4050, L5500.0300 #### [facility] [address] [place], [place], [id number] Erythrocyte sedimentation ra teOrdered By: Alejandro Roy on 07-05-2024 ESR (Bld) [Velocity] 3 mm/h 0-30 [facility] Estimated glomerular filtrat ion rate (GFR) AmericanOrdered By: Alejandro Roy on 07-05-2024 Estimated GFR (MDRD) Amer 108 mL/min >60 [facility] Comment on above: GFR Calc house dust mite IgE Qn (S)Ordered By: Alejandro Roy on 07-05-2024 Dermatophagoides pteronyss Allergen <0.10 kU/L Class 0 [facility] Gastrin [Mass/Vol]Ordered By : Alejandro Roy on 07-05-2024 Gastrin 46 pg/mL 0-115 [facility] Comment on above: Siemens Immulite 200 0 Immunochemiluminometric assay (ICMA)Values obtained with different assay methods or kits cannotbe used interchangeably. Results cannot be interpreted asabsolute evidence of the presence or absence of malignantdisease.Performed at: [facility] [id number] Director: Cristhian Nath PhD, Phone: [phone] at: [facility] [id number] Director: Talia Avendano MD, Phone: [phone] Gastrin, serumOrdered By: Ra lesvia Roy on 07-05-2024 Gastrin [Mass/Vol] 46 pg/mL 0-115 [facility] Comment on above: Siemens Immulite 200 0 Immunochemiluminometric assay (ICMA)Values obtained with different assay methods or kits cannotbe used interchangeably. Results cannot be interpreted asabsolute evidence of the presence or absence of malignantdisease.Performed at: [facility] [id number] Director: Cristhian Nath PhD, Phone: [phone] at: [place] [id number] Director: Talia Avendano MD, Phone: [phone] Gastroenterology Visit Repor ton 07-05-2024 Gastroenterology Visit Report [facility] [address] [place] [address] OFFICE VISIT Date of Service: 07/05/24 MR#: [id number] Acct: [id number] Name: OLGA STAFFORD Rep #: [id number] : 1950 Provider: Alejandro Roy DO Age/Sex: 74/F Location: [facility] Status: Signed Intake Vital Signs 01/30/24 06:11 Height 5 ft 2 in Intake Visit Reasons: vomiting after protein Allergies Penicillins Allergy (Verified 01/30/24 06:21) Hives Medications ???Medication ???Instructions ???Recorded ???Confirmed ???Type tiiignfy-gls-tipo-FA-Ca carb-vit K 1 tab PO DAILY 03/25/19 07/05/24 History 18 mg iron-400 mcg-500 mg tablet (Women's Multivitamin) turmeric 100 mg-kristian 150 cap PO 01/28/22 07/05/24 History mg-olive 50 mg-oreg 150 mg-capryl capsule polyethylene glycol 3350 17 4 g PO QDAY PRN constipation 07/0507/05/24 History gram/dose oral powder (Miralax) Have you fallen in the past year?: No PFSH Medical History (Updated 07/05/24 @ 10:[address] Allen Friend, DO) Knee pain Surgical History History of appendectomy Hx of appendectomy Family History Mother Hypertension CVA (cerebral vascular accident) Father Hypertension Prostate cancer Social History (Updated 07/05/24 @ 09:35 by Caridad Henriquez) Smoking Status: Never smoker alcohol intake: current alcohol intake frequency: a few times a week substance use type: does not use what type of physical activity do you participate in: walking and bicycling HPI HPI Details: OLGA STAFFODR, is a 74 F who presents to the office today for initial consult. *BGI established 2.3.25 pt reports that for the last several years she has been having random episodes of vomiting 4 hours after she has eaten certain foods. pt reports that she has had scopes and a GET, has seen a few gastroenterologists and allergists, and hasn't found a answer for her symptoms. She provided a detailed synopsis over the last 10 years of which she has been experiencing. This started back in August 2013 where she had a first episode of nausea and vomiting after eating sánchez. Patient said she did not keep a record of each episode but she did notice that after the lamp incident she also the same incident with fish, pepitas, black beans, pecans and walnuts. The same year in April 2014 he underwent imaging by her PCP at [facility] that showed a large amount of stool and delayed gastric emptying on a gastric emptying study. From 2013 and 2021 she had random bouts of vomiting probably eating types of foods such as, chickpeas, fish, pepitas, black beans, pecans and walnuts. Her treatment up until 2021 was food avoidance. In July 2021 she had saw an it infrastructure specialist at previous clinic and was diagnosed with food protein induced enterocolitis syndrome. Treatment was recommended In May 2024 she had breast spinach salad and had the same reaction. Up until that time avoiding those other foods that cause the problem was successful. However because of this new episode she came in for consultation. ROS Const Constitutional: No fatigue, fever(s) or weight change ENT ENT: No difficulty swallowing Gastro GI: Positive for constipation and heartburn; No abdominal pain, belching, bloating, change in bowel habits, change in stool character, coffee ground emesis, cramping, diarrhea, difficulty swallowing, feeling full early, excessive flatus, incontinent of stools, Vomiting blood/hematemesis, Blood in stool, loose stools, Black,tarry stools, nausea/dyspepsia, pain with swallowing, vomiting or other Musc Musculoskeletal: Positive for Arthritis; No joint pain Skin Skin: Positive for dry skin; No yellowing of the eye or itchy eyes Psych Psychiatric: Positive for anxiety, Positive for depression and Positive for inattentiveness Endo Endocrine: No fatigue or weight change Aller/Imm Allergy/Immunologic: No itchy eyes Rashaad/Lymp Hematologic/Lymphatic: No easy bleeding or easy bruising Exam Const General: cooperative and healthy appearing Resp Effort Inspection: normal respiratory effort Auscultation: Bilateral: Clear to Auscultation Cardio Rate: regular rate Rhythm: regular rhythm GI Auscultation: normal bowel sounds General: No CVA tenderness Psych Appearance: grossly normal Mental Status: mental status grossly normal Assessment and Plan Assessment and Plan (1) Food allergy: Status: Acute Plan: 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 The diagnosis was confirmed by gastric emptying study. I suspect that she does have gastroparesis but the gastric emptying study was done and she did not have his food substa (more content not included)... Normal [facility] Glomerular filtration rate ( GFR) estimationOrdered By: Alejandro Roy on 07-05-2024 Estimated GFR (MDRD) Non-Af Amer 89 mL/min >60 [facility] Comment on above: Non- GFR Calc GFR/1.73 sq M.predicted among non-blacks MDRD (S/P/Bld) [Vol rate/Area] 89 mL/min/{1.73_m2} >60 [facility] Comment on above: Non- GFR Calc Glucose measurementOrdered B y: Alejandro Roy on 07-05-2024 Glucose [Mass/Vol] 99 mg/dL 74-106 [facility] IgA [Mass/Vol]Ordered By: Ra lesvia Roy on 07-05-2024 Immunoglobulin A 185 mg/dL 64-422 [facility] IgEOrdered By: Alejandro jackson on 07-05-2024 IgE 29 IU/mL 6-495 [facility] Immunoglobulin E 29 IU/mL 6-495 [facility] IgG [Mass/Vol]Ordered By: Ra lesvia Roy on 07-05-2024 Immunoglobulin G 1644 mg/dL High 586-1602 [facility] Immunoglobulin M measurement Ordered By: Alejandro Roy on 07-05-2024 Immunoglobulin M 111 mg/dL 26-217 [facility] Sherlyn-1 antibody assayOrdered B y: Alejandro Roy on 07-05-2024 SHERLYN-1 Antibody TNP [facility] Comment on above: Test not performed Kentucky blue grass IgE Qn ( S)Ordered By: Alejandro Roy on 07-05-2024 Kentucky Blue (October) Grass IgE Ab <0.10 kU/L Class 0 [facility] LDHon 07-05-2024 LDH 213 U/L Normal 84-246 [facility] Comment on above: Order Comment: 1 Performed By: #### L 3300.1800, L3300.1200, L3410.2400, L101.9900, L501.2450, L501.6710, L5500.0550, L504.2610, L3200.1100, L501.2400, L500.4050, L5500.0300 #### [facility] [address] [place], [address] Laboratory - Chemistry and C hemistry - challengeOrdered By: Alejandro Roy on 07-05-2024 AST [Catalytic activity/Vol] 41 U/L High 15-37 [facility] Laboratory - Miscellaneous t estsOrdered By: Alejandro Roy on 07-05-2024 Service comment (Unsp spec) [Interp] Comment . [facility] Comment on above: Levels of Specific I gE Class Description of Class ----- < 0.10 0 Negative 0.10 - 0.31 0/I Equivocal/Low 0.32 - 0.55 I Low 0.56 - 1.40 II Moderate 1.41 - 3.90 III High 3.91 - 19.00 IV Very High 19.01 - 100.00 V Very High >100.00 Very High Lactate dehydrogenase (LDH) measurementOrdered By: Alejandro Roy on 07-05-2024 LDH [Catalytic activity/Vol] 213 U/L 84-246 [facility] Lipaseon 07-05-2024 Lipase [Catalytic activity/Vol] 51 U/L Normal 13-75 [facility] Comment on above: Result Comment: David yo note: LIPASE revised reference range effective 22. New Lipase methodology. Expected to produce lower values than the previous assay method. NEW Reference Range: 13 - 75 U/L Performed By: #### L 3300.1800, L3300.1200, L3410.2400, L101.9900, L501.2450, L501.6710, L5500.0550, L504.2610, L3200.1100, L501.2400, L500.4050, L5500.0300 #### [facility] [address] [place], [place], [id number] Lipase measurementOrdered By : Alejandro Roy on 07-05-2024 Lipase [Catalytic activity/Vol] 51 U/L 13-75 [facility] Comment on above: Please note:LIPASE r evised reference range effective 22. New Lipase methodology. Expected to produce lower values than the previous assay method. NEW Reference Range: 13 - 75 U/L Mouse urine IgEOrdered By: Mathieu Roy on 07-05-2024 Mouse Urine Allergen IgE Antibody <0.10 kU/L Class 0 [facility] [facility] Comment on above: Performed at: [address] [id number] Director: Talia Avendano MD, Phone: [phone] Neutrophil cytoplasmic Ab.cl assic Qn (S)Ordered By: Alejandro Roy on 07-05-2024 Cytoplasmic ANCA (c-ANCA) Antibody <1:20 titer Neg:<1:20 [facility] Neutrophil cytoplasmic Ab.pe rinuclear IF (S) [Titer]Ordered By: Alejandro Roy on 07-05-2024 Perinuclear ANCA (p-ANCA) Antibody <1:20 titer Neg:<1:20 [facility] Comment on above: The presence of posi tive fluorescence exhibiting P-ANCA orC-ANCA patterns alone is not specific for the diagnosis ofWegener's Granulomatosis (WG) or microscopic polyangiitis.Decisions about treatment should not be based solely onANCA IFA results. The International ANCA Group Consensusrecommends follow up testing of positive sera with both NV-3 and MPO-ANCA enzyme immunoassays. As many as 5% serumsamples are positive only by EIA. Ref. AM J Clin Juscvu8859;111:507-513. Peanut IgE Qn (S)Ordered By: Alejandro Roy on 07-05-2024 Peanut Allergen (RAST) <0.10 kU/L Class 0 [facility] Pork IgE Qn (S)Ordered By: Mathieu Roy on 07-05-2024 Pork Allergen (RAST) <0.10 kU/L Class 0 [facility] Potassium measurementOrdered By: Alejandro Roy on 07-05-2024 Potassium [Moles/Vol] 3.6 mmol/L 3.5-5.1 [facility] ALL SOURCE COLLECTION MANAGER abOrdered By: Alejandro Valles iend on 07-05-2024 ALL SOURCE COLLECTION MANAGER Antibody TNP [facility] Comment on above: Test not performed SCL-70 extractable nuclear A b Qn (S)Ordered By: Alejandro Roy on 07-05-2024 Scl-70 (Scleroderma) Antibody [facility] Comment on above: Test not performed SS-A IgG antibody assayOrder ed By: Alejandro Roy on 07-05-2024 SS-A/Ro IgG Antibody [facility] Comment on above: Test not performed SS-B IgG antibody assayOrder ed By: Alejandro Roy on 07-05-2024 SS-B/La IgG Antibody [facility] Comment on above: Test not performed [place] IgE Qn (S)Ordered By: Alejandro Roy on 07-05-2024 [place] Allergen IgE Antibody <0.10 kU/L Class 0 [facility] Serum Bermuda grass IgE anti body assay (units/volume)Ordered By: Alejandro Roy on 07-05-2024 B[place] grass IgE Qn (S) <0.10 kU/L Class 0 [facility] Serum DNA double strand anti body assay (units/volume)Ordered By: Alejandro Roy on 07-05-2024 DNA double strand Ab Qn (S) See comment [facility] Comment on above: TEST RESULTS LIMITSA ntinuclear Ab 9 by Multiplex Anti-DNA (DS) Ab Qn <1 IU/mL 0-9 Negative <5 Equivocal 5 - 9 Positive >9 ALL SOURCE COLLECTION MANAGER Antibodies 0.3 AI 0.0-0.9 Baez Antibodies <0.2 AI 0.0-0.9 Antiscleroderma-70 Antibodies <0.2 AI 0.0-0.9 Sjogren's Anti-SS-A <0.2 AI 0.0-0.9 Sjogren's Anti-SS-B <0.2 AI 0.0-0.9 Antichromatin Antibodies <0.2 AI 0.0-0.9 Anti-Sherlyn-1 <0.2 AI 0.0-0.9 Anti-Centromere B Antibodies <0.2 AI 0.0-0.9 See below: Autoantibody Disease Association Condition Frequency ---------Antinuclear Antibody, SLE, mixed connectiveDirect (DIVYA-D) tissue diseases ---------dsDNA SLE 40 - 60% ---------Chromatin Drug induced SLE 90% SLE 48 - 97% ---------SSA (Ro) SLE 25 - 35% Sjogren's Syndrome 40 - 70% Lupus 100% ---------SSB (La) SLE 10% Sjogren's Syndrome 30% ---------Sm (anti-Baez) SLE 15 - 30% ---------ALL SOURCE COLLECTION MANAGER Mixed Connective Tissue Disease 95%(U1 nRNP, SLE 30 - 50%anti-ribonucleoprotein) Polymyositis and/or Dermatomyositis 20% ---------Scl-70 (antiDNA Scleroderma (diffuse) 20 - 35%topoisomerase) Crest 13% ---------Sherlyn-1 Polymyositis and/or Dermatomyositis 20 - 40% ---------Centromere B Scleroderma - Crest variant 80% TESTING PERFORMED AT [facility]. ORIGINAL REPORT ON FILE IN LAB CONTAINS ADDITIONAL TEST SITE INFORMATION. Serum Dermatophagoides farin ae specific IgE antibody assayOrdered By: Alejandro Roy on 07-05-2024 Dermatophagoides farinae Allergen <0.10 kU/L Class 0 [facility] Serum Vincentian plantain speci fic IgE antibody assayOrdered By: Alejandro Roy on 07-05-2024 Vincentian Plantain Allergen (RAST) <0.10 kU/L Class 0 [facility] Serum house dust mi te IgE antibody assay (units/volume)Ordered By: Alejandro Roy on 07-05-2024 house dust mite IgE Qn (S) <0.10 kU/L Class 0 [facility] Serum [facility] grass Ig E antibody assay (units/volume)Ordered By: Alejandro Roy on 07-05-2024 [place] blue grass IgE Qn (S) <0.10 kU/L Class 0 [facility] Serum Scl-70 antibody assay (units/volume)Ordered By: Alejandro Roy on 07-05-2024 SCL-70 extractable nuclear Ab Qn (S) TNP [facility] Comment on above: Test not performed Serum anion gap measurementO rdered By: Alejandro Roy on 07-05-2024 Anion gap [Moles/Vol] 5 mmol/L 5-15 [facility] Serum beef IgE antibody assa y (units/volume)Ordered By: Alejandro Roy on 07-05-2024 Beef IgE Qn (S) <0.10 kU/L Class 0 [facility] Serum cat dander IgE antibod y assay (units/volume)Ordered By: Alejandro Roy on 07-05-2024 Cat dander IgE Qn (S) <0.10 kU/L Class 0 [facility] Serum classic neutrophil cyt oplasmic antibody assay (units/volume)Ordered By: Alejandro Roy on 07-05-2024 Neutrophil cytoplasmic Ab.classic Qn (S) <1:20 titer Neg:<1:20 [facility] Serum codfish IgE antibody a ssay (units/volume)Ordered By: Alejandro Roy on 07-05-2024 Codfish IgE Qn (S) <0.10 kU/L Class 0 [facility] Serum common/short ragweed s pecific IgE antibody assayOrdered By: Alejandro Roy on 07-05-2024 Common Ragweed (Short) Allergen <0.10 kU/L Class 0 [facility] Serum corn IgE antibody assa y (units/volume)Ordered By: Alejandro Roy on 07-05-2024 [place] IgE Qn (S) <0.10 kU/L Class 0 [facility] Serum cow milk IgE antibody assay (units/volume)Ordered By: Alejandro Roy on 07-05-2024 Cow milk IgE Qn (S) <0.10 kU/L Class 0 [facility] Serum dog epithelium IgE ant ibody assay (units/volume)Ordered By: Alejandro Roy on 07-05-2024 Dog epithelium IgE Qn (S) <0.10 kU/L Class 0 [facility] Serum globulin measurementOr dered By: Alejandro Roy on 07-05-2024 Globulin (S) [Mass/Vol] 4.0 g/dL 2.2-4.2 [facility] Serum mussel specific IgE an tibody assayOrdered By: Alejandro Roy on 07-05-2024 Mussel Allergen IgE Antibody <0.10 kU/L Class 0 [facility] Serum or plasma IgA measurem ent (mass/volume)Ordered By: Alejandro Roy on 07-05-2024 IgA [Mass/Vol] 185 mg/dL 64-422 [facility] Serum or plasma IgG measurem ent (mass/volume)Ordered By: Alejandro Roy on 07-05-2024 IgG [Mass/Vol] 1644 mg/dL High 586-1602 [facility] Serum or plasma alanine hoff otransferase (ALT) measurementOrdered By: Alejandro Roy on 07-05-2024 ALT [Catalytic activity/Vol] 43 U/L 13-56 [facility] Serum or plasma albumin benito urement (mass/volume)Ordered By: Alejandro Roy on 07-05-2024 Albumin [Mass/Vol] 4.0 g/dL 3.2-5.0 [facility] Serum or plasma alkaline ruiz sphatase measurementOrdered By: Alejandro Roy on 07-05-2024 ALP [Catalytic activity/Vol] 69 U/L 45-117 [facility] Serum or plasma amylase benito urement (enzymatic activity/volume)Ordered By: Alejandro Roy on 07-05-2024 Amylase [Catalytic activity/Vol] 67 U/L 25-115 [facility] Serum or plasma calcium benito urement (mass/volume)Ordered By: Alejandro Roy on 07-05-2024 Calcium [Mass/Vol] 9.1 mg/dL 8.5-10.1 [facility] Serum or plasma creatinine m easurement (mass/volume)Ordered By: Alejandro Roy on 07-05-2024 Creatinine [Mass/Vol] 0.68 mg/dL 0.55-1.02 [facility] Comment on above: The validity of the calculated GFR & GFRAA in patients over 70 years has not been determined. Clinical correlation is essential. Serum or plasma urea nitroge n measurement (mass/volume)Ordered By: Alejandro Roy on 07-05-2024 Urea nitrogen [Mass/Vol] 21 mg/dL High 7-18 [facility] Serum peanut IgE antibody as say (units/volume)Ordered By: Alejandro Roy on 07-05-2024 Peanut IgE Qn (S) <0.10 kU/L Class 0 [facility] Serum perinuclear neutrophil cytoplasmic antibody titer by immunofluorescenceOrdered By: Alejandro Roy on 07-05-2024 Neutrophil cytoplasmic Ab.perinuclear IF (S) [Titer] <1:20 titer Neg:<1:20 [facility] Comment on above: The presence of posi tive fluorescence exhibiting P-ANCA orC-ANCA patterns alone is not specific for the diagnosis ofWegener's Granulomatosis (WG) or microscopic polyangiitis.Decisions about treatment should not be based solely onANCA IFA results. The International ANCA Group Consensusrecommends follow up testing of positive sera with both NV-3 and MPO-ANCA enzyme immunoassays. As many as 5% serumsamples are positive only by EIA. Ref. AM J Clin Tlnlue5732;111:507-513. Serum pork IgE antibody assa y (units/volume)Ordered By: Alejandro Roy on 07-05-2024 Pork IgE Qn (S) <0.10 kU/L Class 0 [facility] Serum salmon IgE antibody as say (units/volume)Ordered By: Alejandro Roy on 07-05-2024 [place] IgE Qn (S) <0.10 kU/L Class 0 [facility] Serum shrimp specific IgE an tibody assayOrdered By: Alejandro Roy on 07-05-2024 Shrimp Allergen <0.10 kU/L Class 0 [facility] Serum soybean IgE antibody a ssay (units/volume)Ordered By: Alejandro Roy on 07-05-2024 Soybean IgE Qn (S) <0.10 kU/L Class 0 [facility] Serum tissue transglutaminas e (tTG) IgA antibody assay (units/volume)Ordered By: Alejandro Roy on 07-05-2024 tTG IgA Qn (S) <2 U/mL 0-3 [facility] Comment on above: Negative 0 - 3 Weak Positive 4 - 10 Positive >10 Tissue Transglutaminase (tTG) has been identified as the endomysial antigen. Studies have demonstr- ated that endomysial IgA antibodies have over 99% specificity for gluten sensitive enteropathy. Serum tuna IgE antibody assa y (units/volume)Ordered By: Alejandro Roy on 07-05-2024 Tuna IgE Qn (S) <0.10 kU/L Class 0 [facility] Serum wheat IgE antibody ass ay (units/volume)Ordered By: Alejandro Roy on 07-05-2024 Wheat IgE Qn (S) <0.10 kU/L Class 0 [facility] Serum white elm IgE antibody assay (units/volume)Ordered By: Alejandro Roy on 07-05-2024 [place] IgE Qn (S) <0.10 kU/L Class 0 [facility] Serum white oak IgE antibody assay (units/volume)Ordered By: Alejandro Roy on 07-05-2024 [place] IgE Qn (S) <0.10 kU/L Class 0 [facility] Serum whole egg IgE antibody assay (units/volume)Ordered By: Alejandro oRy on 07-05-2024 Whole Egg IgE Qn (S) <0.10 kU/L Class 0 [facility] Service comment (Unsp spec) [Interp]Ordered By: Alejandro Roy on 07-05-2024 RAST Comment Comment . [facility] Comment on above: Levels of Specific I gE Class Description of Class ----- < 0.10 0 Negative 0.10 - 0.31 0/I Equivocal/Low 0.32 - 0.55 I Low 0.56 - 1.40 II Moderate 1.41 - 3.90 III High 3.91 - 19.00 IV Very High 19.01 - 100.00 V Very High >100.00 Very High Baez antibody assayOrdered By: Alejandro Roy on 07-05-2024 SM Antibody TNP [facility] Comment on above: Test not performed Sodium levelOrdered By: Avril Cárdenas on 07-05-2024 Sodium [Moles/Vol] 139 mmol/L 136-145 [facility] Soybean IgE Qn (S)Ordered By : Alejandro Roy on 07-05-2024 Soybean Allergen (RAST) <0.10 kU/L Class 0 [facility] Total proteinOrdered By: Wilian Roy on 07-05-2024 Protein [Mass/Vol] 8.0 g/dL 6.4-8.2 [facility] Tuna IgE Qn (S)Ordered By: Mathieu Roy on 07-05-2024 Tuna Allergen (RAST) <0.10 kU/L Class 0 [facility] Wheat IgE Qn (S)Ordered By: Alejandro Roy on 07-05-2024 Wheat Allergen (RAST) <0.10 kU/L Class 0 [facility] [place] IgE Qn (S)Ordered By: Alejandro Roy on 07-05-2024 [place] Allergen <0.10 kU/L Class 0 [facility] [place] IgE Qn (S)Ordered By: Alejandro Roy on 07-05-2024 [place] Tree Allergen <0.10 kU/L Class 0 [facility] Whole Egg IgE Qn (S)Ordered By: Alejandro Roy on 07-05-2024 Egg Whole Allergen <0.10 kU/L Class 0 [facility] tTG IgA Qn (S)Ordered By: Ra lesvia Roy on 07-05-2024 Tissue Transglutaminase IgA Ab <2 U/mL 0-3 [facility] Comment on above: Negative 0 - 3 Weak Positive 4 - 10 Positive >10 Tissue Transglutaminase (tTG) has been identified as the endomysial antigen. Studies have demonstr- ated that endomysial IgA antibodies have over 99% specificity for gluten sensitive enteropathy. Absolute neutrophil countOrd ered By: Radha Rodas on 05-18-2024 Neutrophils (Bld) [#/Vol] 1.5 10*3/uL Low 2.0-7.7 [facility] Albumin to globulin ratioOrd ered By: Radha Rodas on 05-18-2024 Albumin/Globulin [Mass ratio] 0.9 {ratio} 0.9-2.4 [facility] Basophil percentageOrdered B y: Radha Rodas on 05-18-2024 Basophils/100 WBC (Bld) 1.0 % 0-1 [facility] Bilirubin, totalOrdered By: Radha Rodas on 05-18-2024 Bilirubin [Mass/Vol] 0.50 mg/dL 0.20-1.00 [facility] Comment on above: For patients on eltr ombopag therapy, use of Dimension [place] TBIL is not recommended. Blood urea nitrogen (BUN)/cr eatinine ratioOrdered By: Radha Rodas on 05-18-2024 Urea nitrogen/Creatinine [Mass ratio] 33.5 mg/mg High 10-20 [facility] CBC W/Diff, Automatedon 05-02 Absolute Lymph 2.14 X10 3/uL Normal 0.83-4.51 [facility] Comment on above: Performed By: #### L 501.92859, L501.9520, L500.4100, L100.0100, L506.0400, L500.4050 ####[facility] [address] [place], [address] Absolute Neut 1.5 X10 3/uL Low 2.0-7.7 [facility] Comment on above: Performed By: #### L 501.59602, L501.9520, L500.4100, L100.0100, L506.0400, L500.4050 ####[facility] [address] [place], [address] Basophils/100 WBC (Bld) 1.0 % Normal 0-1 [facility] Comment on above: Performed By: #### L 501.30406, L501.9520, L500.4100, L100.0100, L506.0400, L500.4050 ####[facility] [address] [place], [address] Eosinophils/100 WBC (Bld) 1.4 % Normal 0-5 [facility] Comment on above: Performed By: #### L 501.68363, L501.9520, L500.4100, L100.0100, L506.0400, L500.4050 ####[facility] [address] [place], [address] Erythrocyte distribution width (RBC) [Ratio] 13.7 % Normal 11.6-14.6 [facility] Comment on above: Performed By: #### L 501.58080, L501.9520, L500.4100, L100.0100, L506.0400, L500.4050 ####[facility] [address] [place], [address] Hematocrit (Bld) [Volume fraction] 39.0 % Normal 37-47 [facility] Comment on above: Performed By: #### L 501.27397, L501.9520, L500.4100, L100.0100, L506.0400, L500.4050 ####[facility] [address] [place], [address] Hemoglobin (Bld) [Mass/Vol] 13.1 g/dL Normal 12.0-15.0 [facility] Comment on above: Performed By: #### L 501.77861, L501.9520, L500.4100, L100.0100, L506.0400, L500.4050 ####[facility] [address] [place], [address] IG% 0.200 Normal 0.0-0.9 [facility] Comment on above: Result Comment: IG% - Immature Granulocytes (promyelocytes, myelocytes and metamyelocytes) > 1% indicates that a LEFT SHIFT is Present. Performed By: #### L 501.91213, L501.9520, L500.4100, L100.0100, L506.0400, L500.4050 ####[facility] [address] [place], [address] Lymphocytes/100 WBC (Bld) 51.1 % High 19-41 [facility] Comment on above: Performed By: #### L 501.82643, L501.9520, L500.4100, L100.0100, L506.0400, L500.4050 ####[facility] [address] [place], [address] MCH (RBC) [Entitic mass] 28.6 pg Normal 27.0-32.0 [facility] Comment on above: Performed By: #### L 501.64476, L501.9520, L500.4100, L100.0100, L506.0400, L500.4050 ####[facility] [address] [place], [address] MCHC (RBC) [Mass/Vol] 33.6 g/dL Normal 32-36 [facility] Comment on above: Performed By: #### L 501.08370, L501.9520, L500.4100, L100.0100, L506.0400, L500.4050 ####[facility] [address] [place], [address] MCV (RBC) [Entitic vol] 85.2 fL Normal 81-99 [facility] Comment on above: Performed By: #### L 501.69021, L501.9520, L500.4100, L100.0100, L506.0400, L500.4050 ####[facility] [address] [place], [address] Monocytes/100 WBC (Bld) 11.7 % High 0-10 [facility] Comment on above: Performed By: #### L 501.14178, L501.9520, L500.4100, L100.0100, L506.0400, L500.4050 ####[facility] [address] [place], [address] Neutrophils/100 WBC (Bld) 34.6 % Low 47-70 [facility] Comment on above: Performed By: #### L 501.40114, L501.9520, L500.4100, L100.0100, L506.0400, L500.4050 ####[facility] [address] [place], [address] Nucleated RBC (Bld) [#/Vol] 0 10*3/uL Normal 0-5 [facility] Comment on above: Performed By: #### L 501.31925, L501.9520, L500.4100, L100.0100, L506.0400, L500.4050 ####[facility] [address] [place], [address] Platelet mean volume (Bld) [Entitic vol] 8.8 fL Normal 6.2-12.0 [facility] Comment on above: Performed By: #### L 501.51028, L501.9520, L500.4100, L100.0100, L506.0400, L500.4050 ####[facility] [address] [place], [address] Platelets (Bld) [#/Vol] 187 10*3/uL Normal 150-450 [facility] Comment on above: Performed By: #### L 501.41907, L501.9520, L500.4100, L100.0100, L506.0400, L500.4050 ####[facility] [address] [place], [address] RBC (Bld) [#/Vol] 4.58 10*6/uL Normal 4.2-5.4 [facility] Comment on above: Performed By: #### L 501.18918, L501.9520, L500.4100, L100.0100, L506.0400, L500.4050 ####[facility] [address] [place], [address] RDW SD 42.4 fl Normal 35.1-43.9 [facility] Comment on above: Performed By: #### L 501.19470, L501.9520, L500.4100, L100.0100, L506.0400, L500.4050 ####[facility] [address] [place], [address] WBC (Bld) [#/Vol] 4.2 10*3/uL Low 4.4-11.0 [facility] Comment on above: Performed By: #### L 501.88369, L501.9520, L500.4100, L100.0100, L506.0400, L500.4050 ####[facility] [address] [place], [address] Carbon dioxide measurementOr dered By: Radha Rodas on 05-18-2024 CO2 [Moles/Vol] 29.0 mmol/L 21.0-32.0 [facility] Chloride measurementOrdered By: Radha Rodas on 05-18-2024 Chloride [Moles/Vol] 109 mmol/L High 98-107 [facility] Comprehensive Metabolic Prof ilon 05-18-2024 Albumin [Mass/Vol] 3.5 g/dL Normal 3.2-5.0 [facility] Comment on above: Performed By: #### L 501.08247, L501.9520, L500.4100, L100.0100, L506.0400, L500.4050 ####[facility] [address] [place], [address] Albumin/Globulin [Mass ratio] 0.9 {ratio} Normal 0.9-2.4 [facility] Comment on above: Performed By: #### L 501.18432, L501.9520, L500.4100, L100.0100, L506.0400, L500.4050 ####[facility] [address] [place], [address] ALK P 68 U/L Normal 45-117 [facility] Comment on above: Performed By: #### L 501.24842, L501.9520, L500.4100, L100.0100, L506.0400, L500.4050 ####[facility] [address] [place], [address] ALT [Catalytic activity/Vol] 37 U/L Normal 13-56 [facility] Comment on above: Performed By: #### L 501.27309, L501.9520, L500.4100, L100.0100, L506.0400, L500.4050 ####[facility] [address] [place], [address] AST [Catalytic activity/Vol] 37 U/L Normal 15-37 [facility] Comment on above: Performed By: #### L 501.56749, L501.9520, L500.4100, L100.0100, L506.0400, L500.4050 ####[facility] [address] [place], [address] Bilirubin [Mass/Vol] 0.50 mg/dL Normal 0.20-1.00 [facility] Comment on above: Result Comment: For patients on eltrombopag therapy, use of Dimension [place] TBIL is not recommended. Performed By: #### L 501.10069, L501.9520, L500.4100, L100.0100, L506.0400, L500.4050 ####[facility] [address] [place], [address] BUN/CRE 33.5 RATIO High 10-20 [facility] Comment on above: Performed By: #### L 501.03681, L501.9520, L500.4100, L100.0100, L506.0400, L500.4050 ####[facility] [address] [place], [address] CA,Total 8.7 mg/dL Normal 8.5-10.1 [facility] Comment on above: Performed By: #### L 501.38611, L501.9520, L500.4100, L100.0100, L506.0400, L500.4050 ####[facility] [address] [place], [address] Chloride [Moles/Vol] 109 mmol/L High 98-107 [facility] Comment on above: Performed By: #### L 501.20793, L501.9520, L500.4100, L100.0100, L506.0400, L500.4050 ####[facility] [address] [place], [address] CO2 [Moles/Vol] 29.0 mmol/L Normal 21.0-32.0 [facility] Comment on above: Performed By: #### L 501.81108, L501.9520, L500.4100, L100.0100, L506.0400, L500.4050 ####[facility] [address] [place], [address] Creatinine [Mass/Vol] 0.72 mg/dL Normal 0.55-1.02 [facility] Comment on above: Result Comment: The validity of the calculated GFR GFRAA in patients over 70 years has not been determined. Clinical correlation is essential. Performed By: #### L 501.91215, L501.9520, L500.4100, L100.0100, L506.0400, L500.4050 ####[facility] [address] [place], [place], [id number] EST GFR - AA 102 mL/min Normal >60 [facility] Comment on above: Result Comment: Afri can [place] GFR Calc Performed By: #### L 501.36791, L501.9520, L500.4100, L100.0100, L506.0400, L500.4050 ####[facility] [address] [place], [place], [phone]) GAP 2 Low 5-15 [facility] Comment on above: Performed By: #### L 501.57822, L501.9520, L500.4100, L100.0100, L506.0400, L500.4050 ####[facility] [address] [place], [place], [phone](343) GFR/1.73 sq M.predicted among non-blacks MDRD (S/P/Bld) [Vol rate/Area] 84 mL/min/{1.73_m2} Normal >60 [facility] Comment on above: Result Comment: Non- GFR Calc Performed By: #### L 501.94399, L501.9520, L500.4100, L100.0100, L506.0400, L500.4050 ####[facility] [address] [place], [place], [phone]) Globulin (S) [Mass/Vol] 3.9 g/dL Normal 2.2-4.2 [facility] Comment on above: Performed By: #### L 501.42067, L501.9520, L500.4100, L100.0100, L506.0400, L500.4050 ####[facility] [address] [place], [address] Glucose [Mass/Vol] 99 mg/dL Normal 74-106 [facility] Comment on above: Performed By: #### L 501.07833, L501.9520, L500.4100, L100.0100, L506.0400, L500.4050 ####[facility] [address] [place], [place], [address] Potassium [Moles/Vol] 3.9 mmol/L Normal 3.5-5.1 [facility] Comment on above: Performed By: #### L 501.60724, L501.9520, L500.4100, L100.0100, L506.0400, L500.4050 ####[facility] [address] [place], [address] Sodium [Moles/Vol] 140 mmol/L Normal 136-145 [facility] Comment on above: Performed By: #### L 501.10195, L501.9520, L500.4100, L100.0100, L506.0400, L500.4050 ####[facility] [address] [place], [address] T PROT 7.4 g/dL Normal 6.4-8.2 [facility] Comment on above: Performed By: #### L 501.36606, L501.9520, L500.4100, L100.0100, L506.0400, L500.4050 ####[facility] [address] [place], [address] Urea nitrogen [Mass/Vol] 24 mg/dL High 7-18 [facility] Comment on above: Performed By: #### L 501.83651, L501.9520, L500.4100, L100.0100, L506.0400, L500.4050 ####[facility] [address] [place], [address] Direct serum free thyroxine (FT4) measurementOrdered By: Radha Rodas on 05-18-2024 Free T4 [Mass/Vol] 0.92 ng/dL 0.76-1.46 [facility] Eosinophil percentageOrdered By: Radha Rodas on 05-18-2024 Eosinophils/100 WBC (Bld) 1.4 % 0-5 [facility] Erythrocyte distribution wid th (RBC) [Ratio]Ordered By: Radha Rodas on 05-18-2024 Erythrocyte distribution width (RBC) [Entitic vol] 42.4 fL 35.1-43.9 [facility] Erythrocyte distribution wid th ratioOrdered By: Radha Rodas on 05-18-2024 Erythrocyte distribution width (RBC) [Ratio] 13.7 % 11.6-14.6 [facility] Estimated glomerular filtrat ion rate (GFR) AmericanOrdered By: Radha Rodas on 05-18-2024 Estimated GFR (MDRD) Amer 102 mL/min >60 [facility] Comment on above: GFR Calc Free T3on 05-18-2024 Free T3 [Mass/Vol] 2.8 pg/mL Normal 2.18-3.98 [facility] Comment on above: Performed By: #### L 501.56470, L501.9520, L500.4100, L100.0100, L506.0400, L500.4050 ####[facility] [address] [place], [place], [id number] Free O5Hkutggp By: Radha Benavides s on 05-18-2024 Free Triiodothyronine (T3) pg/dL 2.8 pg/mL 2.18-3.98 [facility] Glomerular filtration rate ( GFR) estimationOrdered By: Radha Rodas on 05-18-2024 Estimated GFR (MDRD) Non-Af Amer 84 mL/min >60 [facility] Comment on above: Non- GFR Calc Glucose measurementOrdered B y: Radha Rodas on 05-18-2024 Glucose [Mass/Vol] 99 mg/dL 74-106 [facility] Hematocrit Auto (Bld) [Volum e fraction]Ordered By: Radha Rodas on 05-18-2024 Hematocrit (Bld) [Volume fraction] 39.0 % 37-47 [facility] Hemoglobin measurementOrdere d By: Radha Rodas on 05-18-2024 Hemoglobin (Bld) [Mass/Vol] 13.1 g/dL 12.0-15.0 [facility] High density lipoprotein (HD L) measurementOrdered By: Radha Adrianna on 05-18-2024 Cholesterol in HDL [Mass/Vol] 57 mg/dL >40 [facility] Comment on above: The drugs N-Acetylcy steine and Metamizole may falsely depress this assay. Reference Range HDL <40 mg/dL Low HDL Cholesterol HDL >or= 60 mg/dL High HDL Cholesterol Immature granulocytes/100 WB C Auto (Bld)Ordered By: Radha Abadkevin on 05-18-2024 Immature granulocytes/100 WBC (Bld) 0.200 % 0.0-0.9 [facility] Comment on above: IG% - Immature Granu locytes (promyelocytes, myelocytes and metamyelocytes) > 1% indicates that a LEFT SHIFT is Present. Laboratory - Chemistry and C hemistry - challengeOrdered By: Radha Rodas on 05-18-2024 AST [Catalytic activity/Vol] 37 U/L 15-37 [facility] Lipid Profileon 05-18-2024 Cholesterol [Mass/Vol] 222 mg/dL High 200 [facility] Comment on above: Result Comment: <200 mg/dL Desirable 200-240 mg/dL Borderline >240 mg/dL High Risk Performed By: #### L 501.98356, L501.9520, L500.4100, L100.0100, L506.0400, L500.4050 ####[facility] [address] [place], [address] Cholesterol in HDL [Mass/Vol] 57 mg/dL Normal [facility] Comment on above: Result Comment: The drugs N-Acetylcysteine and Metamizole may falsely depress this assay. Reference Range HDL <40 mg/dL Low HDL Cholesterol HDL >or= 60 mg/dL High HDL Cholesterol Performed By: #### L 501.96607, L501.9520, L500.4100, L100.0100, L506.0400, L500.4050 ####[facility] [address] [place], [address] Cholesterol in LDL [Mass/Vol] 135 mg/dL High 0-130 [facility] Comment on above: Performed By: #### L 501.55465, L501.9520, L500.4100, L100.0100, L506.0400, L500.4050 ####[facility] [address] [place], [address] Cholesterol in VLDL [Mass/Vol] 30 mg/dL Normal 5-40 [facility] Comment on above: Performed By: #### L 501.54535, L501.9520, L500.4100, L100.0100, L506.0400, L500.4050 ####[facility] [address] [place], [address] Triglyceride [Mass/Vol] 150 mg/dL Normal [facility] Comment on above: Result Comment: The drugs N-Acetylcysteine and Metamizole may falsely depress this assay. Serum Triglycerides Reference Interval Normal <150 mg/dL Borderline high 150 - 199 mg/dL High 200 - 499 mg/dL Very High > or = 500 mg/dL Performed By: #### L 501.62278, L501.9520, L500.4100, L100.0100, L506.0400, L500.4050 ####[facility] [address] [place], [place], [phone]) Low density lipoprotein (LDL ) cholesterol measurementOrdered By: Radha Rodas on 05-18-2024 Cholesterol in LDL [Mass/Vol] 135 mg/dL High 0-130 [facility] Lymphocytes Auto (Unsp spec) [#/Vol]Ordered By: Radha Rodas on 05-18-2024 Lymphocytes (Bld) [#/Vol] 2.14 10*3/uL 0.83-4.5 1 [facility] Lymphocytes/100 WBC Auto (Un sp spec)Ordered By: Radha Rodas on 05-18-2024 Lymphocytes/100 WBC (Bld) 51.1 % High 19-41 [facility] MCV (mean corpuscular volume ) determinationOrdered By: Radha Rodas on 05-18-2024 MCV (RBC) [Entitic vol] 85.2 fL 81-99 [facility] Mean corpuscular hemoglobin (MCH) determinationOrdered By: Radha Rodas on 05-18-2024 MCH (RBC) [Entitic mass] 28.6 pg 27.0-32.0 [facility] Mean corpuscular hemoglobin concentration (MCHC) determinationOrdered By: Radha Rdoas on 05-18-2024 MCHC (RBC) [Mass/Vol] 33.6 g/dL 32-36 [facility] Mean platelet volume determi nationOrdered By: Radha Rodas on 05-18-2024 Platelet mean volume (Bld) [Entitic vol] 8.8 fL 6.2-12.0 [facility] Monocyte percentageOrdered B y: Radha Rodas on 05-18-2024 Monocytes/100 WBC (Bld) 11.7 % High 0-10 [facility] Neutrophil percentageOrdered By: Radha Rodas on 05-18-2024 Neutrophils/100 WBC (Bld) 34.6 % Low 47-70 [facility] Nucleated red blood cell per centageOrdered By: Radha Rodas on 05-18-2024 Nucleated RBC/100 WBC (Bld) [Ratio] 0 % 0-5 [facility] Platelet countOrdered By: Arelis Rodas on 05-18-2024 Platelets (Bld) [#/Vol] 187 10*3/uL 150-450 [facility] Potassium measurementOrdered By: Radha Rodas on 05-18-2024 Potassium [Moles/Vol] 3.9 mmol/L 3.5-5.1 [facility] RBC Auto (Bld) [#/Vol]Ordere d By: Radha Rodas on 05-18-2024 RBC (Bld) [#/Vol] 4.58 10*6/uL 4.2-5.4 [facility] Serum anion gap measurementO rdered By: Radha Rodas on 05-18-2024 Anion gap [Moles/Vol] 2 mmol/L Low 5-15 [facility] Serum globulin measurementOr dered By: Radha Rodas on 05-18-2024 Globulin (S) [Mass/Vol] 3.9 g/dL 2.2-4.2 [facility] Serum or plasma alanine hoff otransferase (ALT) measurementOrdered By: Radha Rodas on 05-18-2024 ALT [Catalytic activity/Vol] 37 U/L 13-56 [facility] Serum or plasma albumin benito urement (mass/volume)Ordered By: Radha Rodas on 05-18-2024 Albumin [Mass/Vol] 3.5 g/dL 3.2-5.0 [facility] Serum or plasma alkaline ruiz sphatase measurementOrdered By: Radha Rodas on 05-18-2024 ALP [Catalytic activity/Vol] 68 U/L 45-117 [facility] Serum or plasma calcium benito urement (mass/volume)Ordered By: Radha Rodas on 05-18-2024 Calcium [Mass/Vol] 8.7 mg/dL 8.5-10.1 [facility] Serum or plasma cholesterol measurement (mass/volume)Ordered By: Radha Rodas on 05-18-2024 Cholesterol [Mass/Vol] 222 mg/dL High <200 [facility] Comment on above: <200 mg/dL Desirable 200-240 mg/dL Borderline >240 mg/dL High Risk Serum or plasma creatinine m easurement (mass/volume)Ordered By: Radha Rodas on 05-18-2024 Creatinine [Mass/Vol] 0.72 mg/dL 0.55-1.02 [facility] Comment on above: The validity of the calculated GFR & GFRAA in patients over 70 years has not been determined. Clinical correlation is essential. Serum or plasma urea nitroge n measurement (mass/volume)Ordered By: Radha Rodas on 05-18-2024 Urea nitrogen [Mass/Vol] 24 mg/dL High 7-18 [facility] Sodium levelOrdered By: Radha Rodas on 05-18-2024 Sodium [Moles/Vol] 140 mmol/L 136-145 [facility] T4 Free Directon 05-18-2024 T4 FREE DIRECT 0.92 ng/dL Normal 0.76-1.46 [facility] Comment on above: Performed By: #### L 501.64177, L501.20, L500.4100, L100.0100, L506.0400, L500.4050 ####[facility] [address] [place], [address] TSH QnOrdered By: Radhakaz Melgozakevin on 05-18-2024 Thyroid Stimulating Hormone (TSH) 3.540 uIU/mL 0.358-3.74 0 [facility] Thyroid Stim Hormone (TSH)on 05-18-2024 TSH 3.540 uIU/mL Normal 0.358-3.74 0 [facility] Comment on above: Performed By: #### L 501.93024, L501.9520, L500.4100, L100.0100, L506.0400, L500.4050 ####[facility] [address] [place], [address] Total proteinOrdered By: Sun Rodas on 05-18-2024 Protein [Mass/Vol] 7.4 g/dL 6.4-8.2 [facility] Triglycerides measurementOrd ered By: Radha Rodas on 05-18-2024 Triglyceride [Mass/Vol] 150 mg/dL <199 [facility] Comment on above: The drugs N-Acetylcy steine and Metamizole may falsely depress this assay.Serum Triglycerides Reference Interval Normal <150 mg/dL Borderline high 150 - 199 mg/dL High 200 - 499 mg/dL Very High > or = 500 mg/dL Very low density lipoprotein (VLDL) cholesterol measurementOrdered By: Radha Rodas on 05-18-2024 VLDL Cholesterol 30 mg/dL 5-40 [facility] White blood cell (WBC) count Ordered By: Radha Rodas on 05-18-2024 WBC (Bld) [#/Vol] 4.2 10*3/uL Low 4.4-11.0 [facility] SCRN MAMM (CAD)W/ANIL BILATo n 03-30-2024 SCRN MAMM (CAD)W/ANIL BILAT [facility] Imaging Services [address] [place], [place] [id number] SCRN MAMM (CAD)W/ANIL BILAT MR#: [id number] Acct: [id number] Name: OLGA STAFFORD Rep #: [id number] : 1950 F 74 From: Lewis choudhury MD PCP: Dr. Radha Rodas DO Status: REG CL Study: SCRN MAMM (CAD)W/ANIL BILAT Date of Exam: 03/03 02/23 Exam# [id number] Ordering Dr: Radah Rodas DO [id number] MAMMOGRAPHY - BILATERAL SCREENING REASON FOR EXAM: Female, 74 years old. Routine annual screening examination. PERTINENT HISTORY: Aunt with breast cancer. Remote left stereotactic breast biopsy. TECHNIQUE: Digital bilateral breast anil (3D mammographic acquisition) in the CC and MLO projections. 2-D mediolateral oblique (MLO) and craniocaudad (CC) views of both breasts were obtained. CAD: Full Field Digital Mammography with Computer Added Detection was performed. COMPARISON: Comparison is made with prior study dated March 18, 2023 February 14, 2022. FINDINGS: Breast Composition: The breasts are heterogeneously dense, which may obscure small masses. There are no dominant masses or suspicious calcifications. A tissue clip marker is seen in the upper anterior lateral aspect of the left breast. No other significant abnormalities are identified. There has been no significant change since the prior study. BI/SCRN MAMM (CAD)W/ANIL BILAT IMPRESSION: Stable bilateral screening mammogram. Yearly follow-up mammogram recommended. (A) ASSESSMENT CATEGORY: BIRADS Category 2: Benign. A letter regarding these results will be sent to the patient by the facility within 30 days. Approximately 10% of breast cancers are not detected by mammography. A normal mammogram should not delay biopsy of a clinically suspicious abnormality. [id number] Electronically Signed: Lewis Huerta MD at 11:20 EDT Reading Location ID and State: [address] [place] [address] , Service support , CC: Dr. Radha Rodas, DO [place]: Signed Normal [facility] Urine Cultureon 02-01-2024 [facility] Proteus vulgaris [place] Count >100,000 Proteus vulgaris: REACTION Ampicillin Islt LUCIA >=32 R Ampicillin+Sulbac Islt LUCIA 16 I ceFAZolin Islt LUCIA >=64 R Cefepime Islt LUCIA <=0.12 S Ciprofloxacin Islt LUCIA <=0.25 S Ertapenem Islt LUCIA <=0.12 S Gentamicin Islt LUCIA <=1 S Imipenem Islt LUCIA 2 S levoFLOXacin Islt LUCIA <=0.12 S Nitrofurantoin Islt LUCIA R Pip+Tazo Islt LUCIA <=4 S Tobramycin Islt LUCIA <=1 S TMP SMX Islt LUCIA <=20 S Normal [facility] Comment on above: Performed By: #### L 3300.1800, L3300.1200, L3410.2400, L101.9900, L501.2450, L501.6710, L5500.0550, L504.2610, L3200.1100, L501.2400, L500.4050, L5500.0300 #### [facility] [address] [place], [place], [address] Urgent Care Visit Reporton 0 01-30-2024 Urgent Care Visit Report [facility] [address] [place] [address] OFFICE VISIT Date of Service: 01/30/24 MR#: [id number] Acct: [id number] Name: OLGA STAFFORD Rep #: [id number] : 1950 Provider: VICKY Mendez Age/Sex: 73/F Location: [facility] Status: Signed Intake Vital Signs 12/01/23 08:36 01/30/24 06:11 Height 5 ft 2 in 5 ft 2 in Weight: 136 lb 139 lb 6 oz BMI 24.8 25.4 BP 126/80 H Position Sitting Pulse 56 L Temp 99.1 F Temp Source Temporal Pulse Oximetry (%) 99 Oxygen Delivery Method room air Intake Visit Reasons: uti Chief Complaint: Dysuria Accompanied by: Self Allergies Penicillins Allergy (Verified 01/30/24 06:21) Hives Medications ???Medication ???Instructions ???Recorded ???Confirmed ???Type vkrkcxiz-lkv-jxzt-FA-Ca carb-vit K 1 tab PO DAILY 03/25/19 01/30/24 History 18 mg iron-400 mcg-500 mg tablet (Women's Multivitamin) turmeric 100 mg-kristian 150 cap PO 01/28/22 01/30/24 History mg-olive 50 mg-oreg 150 mg-capryl capsule nitrofurantoin 1 cap PO Q12H 7 days #14 caps 01/30/24 01/30/24 Rx monohydrate/macrocrystals 100 mg capsule Have you fallen in the past year?: No PFSH Medical History Knee pain Surgical History History of appendectomy Hx of appendectomy Family History Mother Hypertension CVA (cerebral vascular accident) Father Hypertension Prostate cancer Social History Smoking Status: Never smoker HPI HPI Chief Complaint: Dysuria Details: OLGA STAFFORD, is a 73 F who presents to the office today for complaint of dysuria for the past 2 days. Patient denies hematuria or loss of bladder control. No pelvic or abdominal pain. No nausea, vomiting, diarrhea. No fever, chills, sweats. No other associated symptoms or alleviating/aggravating factors. ROS Const Constitutional: Positive for other (ROS negative x 6 except what is described above) Exam Const General: cooperative and healthy appearing Resp Effort Inspection: normal respiratory effort Auscultation: Bilateral: Clear to Auscultation Cardio Rate: regular rate Rhythm: regular rhythm GI Auscultation: normal bowel sounds General: No CVA tenderness Psych Appearance: grossly normal Mental Status: mental status grossly normal Results POC Urinalysis Dip (Clinic) Office Urine Color Yellow Last Edit by Safia Winter MA on 01/30/24 06:23 Office Urine Clarity Cloudy Last Edit by Safia Winter MA on 01/30/24 06:23 Office Urine Glucose Negative Last Edit by Safia Winter MA on 01/30/24 06:23 Office Urine Ketones Negative Last Edit by Safia Winter MA on 01/30/24 06:23 Off Ur Spec [place] Last Edit by Safia Winter MA on 01/30/24 06:23 Office Urine pH 6.0 Last Edit by Safia Winter MA on 01/30/24 06:23 Office Urine Bilirubin Negative Last Edit by Safia Winter MA on 01/30/24 06:23 Office Urine Urobilinogen 0.2 mg/dL Last Edit by Safia Winter MA on 01/30/24 06:23 Office Urine Blood Moderate Last Edit by Safia Winter MA on 01/30/24 06:23 Office Urine Blood Hemolyzed Non-Hemolyzed Last Edit by Safia Winter MA on 01/30/24 06:23 Office Urine Protein Negative Last Edit by Safia Winter MA on 01/30/24 06:23 Office Urine Nitrate Negative Last Edit by Safia Winter MA on 01/30/24 06:23 Off Ur Leukocytes Positive Last Edit by Safia Winter MA on 01/30/24 06:23 Coding Level of Care Code Off vis,est,level 3 Diagnoses Cystitis N30.90 Assessment and Plan Assessment and Plan (1) Cystitis: Status: Acute Orders: Orders POC Urinalysis Dip (Clinic) Today N30.00 - Acute cystitis without hematuria Culture, Urine Today N30.90 - Cystitis, unspecified without hematuria Medications: New nitrofurantoin monohyd/m-cryst 100 mg administer with a meal/food; swallow whole; do not open, crush, dissolve , or chew 1 cap PO Q12H 7 days 14 caps 0RF Plan Macrobid as prescribed today. Encouraged to get plenty of rest, drink lots of clear liquids, and use Tylenol or Ibuprofen (unless contraindicated) for fever and comfort. Patient also educated on other symptomatic management techniques. To be seen in 7-10 days if no improvement; sooner if worsening of symptoms. Patient advised of potential red flags and when appropriate to report to the ED. Patient verbalized understanding and agreement with all the above. Clinical Quality Measures Falls Risk Screening/Assistive Devices Have you fallen in the past year?: No 01/30/24 0640 Date Joe Das Signature: Date ___ (more content not included)... Normal [facility] Knee 4 or More Viewson 11-30 Knee 4 or More Views [facility] [address] [place] [address] Knee 4 or More Views MR#: [id number] Acct: [id number] Name: OLGA STAFFORD Rep #: [id number] : 1950 F 73 From: Tomasz Mariano MD PCP: Dr. Radha Rodas DO Status: DEP AMB Study: Knee 4 or More Views Date of Exam: 12/01/23 Exam# [id number] Ordering Dr: Meet Oliva DO [id number] STUDY: X-RAY - RIGHT KNEE REASON FOR EXAM: Female, 73 years old. Pain. TECHNIQUE: 5 view(s) of the knee. COMPARISON: October 11, 2020 FINDINGS: Osteopenia. Small superior patellar spur. Mild medial compartmental arthrosis without osteophytes. Normal lateral compartment. Mild arthrosis of the patellofemoral compartment. Small joint effusion. RAD/Knee 4 or More Views IMPRESSION: Stable osteopenia with superior patellar spur, mild medial compartmental arthrosis and small joint effusion. Electronically Signed: Tomasz Mariano MD at 9:26 EDT , CC: Dr. Meet Oliva DO; Dr. Radha Rodas DO [place]: Signed Normal [facility] Orthopedic Visit Reporton Orthopedic Visit Report [facility] [address] [place] [address] [address] [place] [address] OFFICE VISIT Date of Service: 12/01/23 MR#: [id number] Acct: [id number] Name: OLGA STAFFORD Rep #: [id number] : 1950 Provider: Dr. Meet arita DO Age/Sex: 73/F Location: [facility] Status: Signed Intake Vital Signs 02/15/23 09:19 12/01/23 08:36 Height 5 ft 2 in 5 ft 2 in Weight: 133 lb 136 lb BMI 24.3 24.8 BP 132/74 H Blood Pressure Location Rt brachial Position Sitting Temp 98.7 F Temp Source Temporal Intake Visit Reasons: RIGHT KNEE Chief Complaint: Right Knee Pain Accompanied by: Self Is patient in pain?: Yes Pain scale (1-10): 3 Allergies Penicillins Allergy (Verified 12/01/23 08:37) Hives Medications ???Medication ???Instructions ???Recorded ???Confirmed ???Type alpldhto-ykh-ntyr-FA-Ca carb-vit K 1 tab PO DAILY 03/25/19 12/01/23 History 18 mg iron-400 mcg-500 mg tablet (Women's Multivitamin) turmeric 100 mg-kristian 150 cap PO 01/28/22 12/01/23 History mg-olive 50 mg-oreg 150 mg-capryl capsule Have you fallen in the past year?: No (have not asked) PFSH Medical History Knee pain Surgical History History of appendectomy Hx of appendectomy Family History Mother Hypertension CVA (cerebral vascular accident) Father Hypertension Prostate cancer Social History Smoking Status: Never smoker HPI RIGHT KNEE Details: This documentation accurately reflects the service provided and the decisions made by me, Dr. Meet Oliva DO 12/01/23 0748. Part of today???s visit was documented by Estella Murdock ATC, acting as scribe. OLGA STAFFORD is a 73 year old F here today for right knee she was last seen for the right knee 10/11/2020 and she was diagnosed with chondromalacia based on a previous MRI of 2018. She did have a previous right knee steroid injection by Dr. Odom in 2019 which was very helpful. Patient states the right knee started bothering her in late August/early September and she just tried to ignore it. Patient states she does a lot of biking and it doesn't bother her too much. Patient states she has a long bike trip coming up as well as some hiking so she wants to try and get the pain decreased. She states it bothers her more when she is walking a lot and putting weight on the knee. She states she comes to [employer] on her own every Friday, Friday and Fridays. Patient states she does take Ibuprofen when the knee pain is increased. Patient denies any recent falls or injuries that caused the knee pain to come back. She states it is just from overuse. Patient's biking trip is planned for December 19. Ortho Exam General General: Yes no acute distress and Yes well groomed Neurologic: Yes alert and Yes oriented x3 Psychologic: Yes reasonable and appropriate Right Knee Skin/Wound: Yes CDI, No erythema, No ecchymosis and No swelling Homans Sign: No Knee ROM: Yes ROM-Extension -20 to 0 and Yes ROM-Flexion 0-140 Examination: No Med jt line tenderness, No Lat jt line tenderness, Yes Crepitus, No Pain with extention and No Ludy's Test Stability: NML: Anterior Drawer, NML: Posterior Drawer, NML: Valgus 0, NML: Valgus 30, NML: Varus 0 and NML: Varus 30 KNEE: pain over medial para-patellar crepitation under patella with range of motion + patellar grind + Pasquale's test no patellar instability full FLEX full EXT no collateral instability Supplemental Info 12/01/2023 x-ray right knee: No acute findings preserved joint space 02/19/2022 x-ray left knee: Preserved joint space no acute findings 5/12/21 xray right knee: preserved joint space, no acute findings. Coding Level of Care Code Off vis,est,level 3 Diagnoses Chondromalacia of right knee M94.261 Laterality: right Assessment and Plan Assessment and Plan (1) Chondromalacia, knee: Status: Acute Qualifiers: Laterality: right Qualified Code(s): M94.261 - Chondromalacia, right knee Orders: Orders Knee 4 or More Views Today M25.561 - Pain in right knee Plan Spoke to patient that we could move forward with a steroid injection but it is not flared up right now so not sure how much it would help down the road. Explained that we can only do a steroid injection every 3 months. Her other option would be viscosupplementation injections but explained these would have to be approved with insurance before moving forward and these can be given up to every 6 months. Explained to patient that she can do the steroid and visco injections at the same time. Patient would like to try and get the visco injections approved. S (more content not included)... Normal [facility] Absolute lymphocyte countOrd ered By: Radha Rodas on 05-10-2023 Lymphocytes Auto (Unsp spec) [#/Vol] 2.43 10*3/uL 0.83-4.51 [facility] Basophil percentageOrdered B y: Radha Rodas on 05-10-2023 Basophils/100 WBC (Bld) 0.9 % 0-1 [facility] Bilirubin [Mass/Vol] 0.30 mg/dL 0.20-1.00 [facility] Comment on above: For patients on eltr ombopag therapy, use of Dimension [place] TBIL is not recommended. Chloride [Moles/Vol] 110 mmol/L 98-107 [facility] Cholesterol [Mass/Vol] 210 mg/dL <200 [facility] Comment on above: <200 mg/dL Desirable 200-240 mg/dL Borderline >240 mg/dL High Risk Eosinophils/100 WBC (Bld) 0.9 % 0-5 [facility] Glucose [Mass/Vol] 95 mg/dL 74-106 [facility] Neutrophils (Bld) [#/Vol] 1.5 10*3/uL 2.0-7.7 [facility] Neutrophils/100 WBC (Bld) 33.2 % 47-70 [facility] Potassium [Moles/Vol] 4.0 mmol/L 3.5-5.1 [facility] Protein [Mass/Vol] 7.2 g/dL 6.4-8.2 [facility] Sodium [Moles/Vol] 140 mmol/L 136-145 [facility] Triglyceride [Mass/Vol] 157 mg/dL <199 [facility] Comment on above: The drugs N-Acetylcy steine and Metamizole may falsely depress this assay.Serum Triglycerides Reference Interval Normal <150 mg/dL Borderline high 150 - 199 mg/dL High 200 - 499 mg/dL Very High > or = 500 mg/dL WBC (Bld) [#/Vol] 4.5 10*3/uL 4.4-11.0 [facility] Blood erythrocytes count (nu mber/volume)Ordered By: Radha Rodas on 05-10-2023 RBC (Bld) [#/Vol] 4.39 10*6/uL 4.2-5.4 [facility] Blood hemoglobin measurement (mass/volume)Ordered By: Radha Rodas on 05-10-2023 Hemoglobin (Bld) [Mass/Vol] 12.4 g/dL 12.0-15.0 [facility] Blood lymphocytes/100 leukoc ytesOrdered By: Radha Rodas on 05-10-2023 Lymphocytes/100 WBC (Bld) 54.5 % 19-41 [facility] Blood monocytes/100 leukocyt esOrdered By: Radha Rodas on 05-10-2023 Monocytes/100 WBC (Bld) 10.1 % 0-10 [facility] Blood platelet mean volumeOr dered By: Radha Rodas on 05-10-2023 Platelet mean volume (Bld) [Entitic vol] 9.3 fL 6.2-12.0 [facility] Determination of erythrocyte mean corpuscular volume (MCV)Ordered By: Radha Rodas on 05-10-2023 MCV (RBC) [Entitic vol] 87.5 fL 81-99 [facility] Hematocrit Auto (Bld) [Volum e fraction]Ordered By: Radha Rodas on 05-10-2023 Hematocrit (Bld) [Volume fraction] 38.4 % 37-47 [facility] Laboratory - Chemistry and C hemistry - challengeOrdered By: Radha Rodas on 05-10-2023 ALP [Catalytic activity/Vol] 69 U/L 45-117 [facility] ALT [Catalytic activity/Vol] 41 U/L 13-56 [facility] CO2 [Moles/Vol] 28.0 mmol/L 21.0-32.0 [facility] Free T4 [Mass/Vol] 0.82 ng/dL 0.76-1.46 [facility] Globulin (S) [Mass/Vol] 3.8 g/dL 2.2-4.2 [facility] Urea nitrogen/Creatinine [Mass ratio] 30.4 mg/mg 10-20 [facility] Laboratory - Hematology and Cell countsOrdered By: Radha Rodas on 05-10-2023 Erythrocyte distribution width (RBC) [Entitic vol] 43.5 fL 35.1-43.9 [facility] Erythrocyte distribution width (RBC) [Ratio] 13.5 % 11.6-14.6 [facility] Immature granulocytes/100 WBC (Bld) 0.400 % 0.0-0.9 [facility] Comment on above: IG% - Immature Granu locytes (promyelocytes, myelocytes and metamyelocytes) > 1% indicates that a LEFT SHIFT is Present. MCH (RBC) [Entitic mass] 28.2 pg 27.0-32.0 [facility] Nucleated RBC/100 WBC (Bld) [Ratio] 0 % 0-5 [facility] MCHC Auto (RBC) [Mass/Vol]Or dered By: Radha Rodas on 05-10-2023 MCHC (RBC) [Mass/Vol] 32.3 g/dL 32-36 [facility] No Panel InformationOrdered By: Radha Rodas on 05-10-2023 Estimated GFR (MDRD) Amer 96 mL/min >60 [facility] Comment on above: GFR Calc Estimated GFR (MDRD) Non-Af Amer 79 mL/min >60 [facility] Comment on above: Non- GFR Calc Free Triiodothyronine (T3) pg/dL 2.4 pg/mL 2.18-3.98 [facility] Thyroid Stimulating Hormone (TSH) 4.12 uIU/mL 0.358-3.74 [facility] Platelets bldOrdered By: Sun kaz Adrianna on 05-10-2023 Platelets (Bld) [#/Vol] 186 10*3/uL 150-450 [facility] Serum or plasma albumin benito urement (mass/volume)Ordered By: Radha Rodas on 05-10-2023 Albumin [Mass/Vol] 3.4 g/dL 3.2-5.0 [facility] Serum or plasma albumin/glob ulin mass ratioOrdered By: Radha Rodas on 05-10-2023 Albumin/Globulin [Mass ratio] 0.9 {ratio} 0.9-2.4 [facility] Serum or plasma calcium benito urement (mass/volume)Ordered By: Radha Rodas on 05-10-2023 Calcium [Mass/Vol] 8.5 mg/dL 8.5-10.1 [facility] Serum or plasma cholesterol in HDL measurement (mass/volume)Ordered By: Radha Rodas on 05-10-2023 Cholesterol in HDL [Mass/Vol] 52 mg/dL >40 [facility] Comment on above: The drugs N-Acetylcy steine and Metamizole may falsely depress this assay. Reference Range HDL <40 mg/dL Low HDL Cholesterol HDL >or= 60 mg/dL High HDL Cholesterol Serum or plasma cholesterol in VLDL measurement (mass/volume)Ordered By: Radha Rodas on 05-10-2023 Cholesterol in VLDL [Mass/Vol] 31 mg/dL 5-40 [facility] Serum or plasma creatinine m easurement (mass/volume)Ordered By: Radha Rodas on 05-10-2023 Creatinine [Mass/Vol] 0.76 mg/dL 0.55-1.02 [facility] Comment on above: The validity of the calculated GFR & GFRAA in patients over 70 years has not been determined. Clinical correlation is essential. Serum or plasma low density lipoprotein (LDL) cholesterol measurement (mass/volume)Ordered By: Radha Rodas on 05-10-2023 Cholesterol in LDL [Mass/Vol] 127 mg/dL 0-130 [facility] Serum or plasma urea nitroge n measurement (mass/volume)Ordered By: Radha Rodas on 05-10-2023 Urea nitrogen [Mass/Vol] 23 mg/dL 7-18 [facility] Thin prep Papanicolaou smear with manual screeningOrdered By: Radha Rodas on 05-10-2023 Thin prep Papanicolaou smear with manual screening 32 U/L 15-37 [facility] Thin prep Papanicolaou smear with manual screening 2 5-15 [facility] Absolute lymphocyte counton 05-02-2022 Lymphocytes Auto (Unsp spec) [#/Vol] 2.09 10*3/uL 0.83-4.51 [facility] Work Phone: [phone] Basophil percentageon 2021 Basophils/100 WBC (Bld) 1.1 % 0-1 [facility] Work Phone: [phone] Bilirubin [Mass/Vol] 0.40 mg/dL 0.20-1.00 [facility] Work Phone: [phone] Comment on above: For patients on eltr ombopag therapy, use of Dimension [place] TBIL is not recommended. Chloride [Moles/Vol] 102 mmol/L 98-107 [facility] Work Phone: [phone] Cholesterol [Mass/Vol] 233 mg/dL <200 [facility] Work Phone: [phone] Comment on above: <200 mg/dL Desirable 200-240 mg/dL Borderline >240 mg/dL High Risk Eosinophils/100 WBC (Bld) 1.4 % 0-5 [facility] Work Phone: [phone] Glucose [Mass/Vol] 89 mg/dL 74-106 [facility] Work Phone: Neutrophils (Bld) [#/Vol] 1.1 10*3/uL 2.0-7.7 [facility] Work Phone: Neutrophils/100 WBC (Bld) 29.4 % 47-70 [facility] Work Phone: Potassium [Moles/Vol] 3.9 mmol/L 3.5-5.1 [facility] Work Phone: [phone] Protein [Mass/Vol] 7.1 g/dL 6.4-8.2 [facility] Work Phone: [phone] Sodium [Moles/Vol] 135 mmol/L 136-145 [facility] Work Phone: [phone] Triglyceride [Mass/Vol] 92 mg/dL <199 [facility] Work Phone: Comment on above: The drugs N-Acetylcy steine and Metamizole may falsely depress this assay.Serum Triglycerides Reference Interval Normal <150 mg/dL Borderline high 150 - 199 mg/dL High 200 - 499 mg/dL Very High > or = 500 mg/dL WBC (Bld) [#/Vol] 3.6 10*3/uL 4.4-11.0 [facility] Work Phone: [phone] Blood erythrocytes count (nu mber/volume)on 05-02-2022 RBC (Bld) [#/Vol] 4.22 10*6/uL 4.2-5.4 [facility] Phone: [phone] Blood hemoglobin measurement (mass/volume)on 05-02-2022 Hemoglobin (Bld) [Mass/Vol] 12.3 g/dL 12.0-15.0 [facility] Work Phone: Blood lymphocytes/100 leukoc yteson 05-02-2022 Lymphocytes/100 WBC (Bld) 57.6 % 19-41 [facility] Work Phone: Blood monocytes/100 leukocyt eson 05-02-2022 Monocytes/100 WBC (Bld) 10.5 % 0-10 [facility] Work Phone: [phone] Blood platelet mean volumeon 05-02-2022 Platelet mean volume (Bld) [Entitic vol] 9.1 fL 6.2-12.0 [facility] Work Phone: Determination of erythrocyte mean corpuscular volume (MCV)on 05-02-2022 MCV (RBC) [Entitic vol] 88.9 fL 81-99 [facility] Work Phone: [phone] Hematocrit Auto (Bld) [Volum e fraction]on 05-02-2022 Hematocrit (Bld) [Volume fraction] 37.5 % 37-47 [facility] Work Phone: Laboratory - Chemistry and C hemistry - challengeon 05-02-2022 ALP [Catalytic activity/Vol] 61 U/L 45-117 [facility] Work Phone: [phone] ALT [Catalytic activity/Vol] 41 U/L 13-56 [facility] Work Phone: [phone] CO2 [Moles/Vol] 29.0 mmol/L 21.0-32.0 [facility] Work Phone: [phone] Globulin (S) [Mass/Vol] 3.5 g/dL 2.2-4.2 [facility] Work Phone: [phone] Urea nitrogen/Creatinine [Mass ratio] 28.0 mg/mg 10-20 [facility] Work Phone: [phone] Laboratory - Hematology and Cell countson 05-02-2022 Erythrocyte distribution width (RBC) [Entitic vol] 45.8 fL 35.1-43.9 [facility] Work Phone: [phone] Erythrocyte distribution width (RBC) [Ratio] 14.3 % 11.6-14.6 [facility] Work Phone: [phone] Immature granulocytes/100 WBC (Bld) 0.000 % 0.0-0.9 [facility] Work Phone: [phone] Comment on above: IG% - Immature Granu locytes (promyelocytes, myelocytes and metamyelocytes) > 1% indicates that a LEFT SHIFT is Present. MCH (RBC) [Entitic mass] 29.1 pg 27.0-32.0 [facility] Work Phone: [phone] Nucleated RBC/100 WBC (Bld) [Ratio] 0 % 0-5 [facility] Work Phone: [phone] MCHC Auto (RBC) [Mass/Vol]on 05-02-2022 MCHC (RBC) [Mass/Vol] 32.8 g/dL 32-36 [facility] Work Phone: [phone] No Panel Informationon 05-02 Estimated GFR (MDRD) Amer 116 mL/min >60 [facility] Work Phone: Comment on above: GFR Calc Estimated GFR (MDRD) Non-Af Amer 96 mL/min >60 [facility] Work Phone: Comment on above: Non- GFR Calc Platelets bldon 05-02-2022 Platelets (Bld) [#/Vol] 223 10*3/uL 150-450 [facility] Work Phone: Serum or plasma albumin benito urement (mass/volume)on 05-02-2022 Albumin [Mass/Vol] 3.6 g/dL 3.2-5.0 [facility] Work Phone: Serum or plasma albumin/glob ulin mass ratioon 05-02-2022 Albumin/Globulin [Mass ratio] 1.0 {ratio} 0.9-2.4 [facility] Work Phone: Serum or plasma calcium benito urement (mass/volume)on 05-02-2022 Calcium [Mass/Vol] 8.3 mg/dL 8.5-10.1 [facility] Work Phone: Serum or plasma cholesterol in HDL measurement (mass/volume)on 05-02-2022 Cholesterol in HDL [Mass/Vol] 65 mg/dL >40 [facility] Work Phone: Comment on above: The drugs N-Acetylcy steine and Metamizole may falsely depress this assay. Reference Range HDL <40 mg/dL Low HDL Cholesterol HDL >or= 60 mg/dL High HDL Cholesterol Serum or plasma cholesterol in VLDL measurement (mass/volume)on 05-02-2022 Cholesterol in VLDL [Mass/Vol] 18 mg/dL 5-40 [facility] Work Phone: Serum or plasma creatinine m easurement (mass/volume)on 05-02-2022 Creatinine [Mass/Vol] 0.64 mg/dL 0.55-1.02 [facility] Work Phone: Comment on above: The validity of the calculated GFR & GFRAA in patients over 70 years has not been determined. Clinical correlation is essential. Serum or plasma low density lipoprotein (LDL) cholesterol measurement (mass/volume)on 05-02-2022 Cholesterol in LDL [Mass/Vol] 150 mg/dL 0-130 [facility] Work Phone: Serum or plasma urea nitroge n measurement (mass/volume)on 05-02-2022 Urea nitrogen [Mass/Vol] 18 mg/dL 7-18 [facility] Work Phone: Thin prep Papanicolaou smear with manual screeningon 05-02-2022 Thin prep Papanicolaou smear with manual screening 40 U/L 15-37 [facility] Work Phone: Thin prep Papanicolaou smear with manual screening 4 5-15 [facility] Work Phone: Basophil percentageon 2021 Basophil percentage >100 SEEN /hpf 0-5 [facility] Work Phone: Bilirubin Test strip Ql (U)o n 03-04-2022 Bilirubin Ql (U) Negative Negative [facility] Work Phone: Ketones Test strip Ql (U)on 03-04-2022 Ketones Ql (U) Negative Negative [facility] Work Phone: Mucus LM Ql (Urine sed)on Mucus Ql (Urine sed) 0 SEEN /hpf [facility] Work Phone: Nitrite Test strip Ql (U)on 03-04-2022 Nitrite Ql (U) Negative Negative [facility] Work Phone: Protein Test strip Ql (U)on 03-04-2022 Protein Ql (U) Negative Negative [facility] Work Phone: Squamous epithelial cells de tection in urine sediment by light microscopyon 03-04-2022 Epithelial cells.squamous LM Ql (Urine sed) 0-5 SEEN /hpf 5-10 [facility] Work Phone: Urine blood detectionon RBC Ql (U) 250 /ul Negative [facility] Work Phone: RBC Ql (U) 5-10 SEEN /hpf 0-5 [facility] Work Phone: Urine clarityon 03-04-2022 Clarity (U) Sl. Cloudy Clear [facility] Work Phone: [phone] Urine color determinationon 03-04-2022 Color (U) Yellow Yellow [facility] Work Phone: [phone] Urine glucose detectionon Glucose Ql (U) Normal mg/dl Normal [facility] Work Phone: [phone] Urine leukocyte esterase det ection by dipstickon 03-04-2022 Leukocyte esterase Test strip Ql (U) 500 /ul Negative [facility] Work Phone: Urine pHon 03-04-2022 pH (U) 8.0 [pH] 5.0 - 8.0 [facility] Work Phone: [phone] Urine sediment bacteria coun t by microscopy (number/high power field)on 03-04-2022 Bacteria LM.HPF (Urine sed) [#/Area] 1 /[HPF] None Seen [facility] Work Phone: [phone] Urine specific gravity measu rementon 03-04-2022 Specific gravity (U) [Rel density] 1.015 1.002-1.03 0 [facility] Work Phone: [phone] Urobilinogen Auto test strip Ql (U)on 03-04-2022 Urobilinogen Ql (U) Normal mg/dl Normal [facility] Work Phone: [phone] Laboratory - Chemistry and C hemistry - challengeon 03-02-2022 Bilirubin Ql (U) Negative [facility] Work Phone: Glucose Ql (U) Negative [facility] Work Phone: Ketones Ql (U) Trace (5) [facility] Work Phone: [phone] pH (U) 8.0 [pH] [facility] Work Phone: [phone] Specific gravity (U) [Rel density] 1.005 [facility] Work Phone: [phone] Urobilinogen (U) [Mass/Vol] Negative [facility] Work Phone: Laboratory - Hematology and Cell countson 03-02-2022 Hemoglobin Ql (U) Hemolyzed [facility] Work Phone: Laboratory - Specimen inform ationon 03-02-2022 Clarity (U) Cloudy [facility] Work Phone: Color (U) YELLOW [facility] Work Phone: Laboratory - Urinalysison Nitrite Ql (U) Negative [facility] Work Phone: Protein Ql (U) Negative [facility] Work Phone: No Panel Informationon 03-02 Urine Leukocytes Positive [facility] Work Phone: Urine Non-Hemolyzed Blood Large [facility] Work Phone: Basophil percentageon 2021 Bilirubin [Mass/Vol] 0.40 mg/dL 0.20-1.00 [facility] Work Phone: Comment on above: For patients on eltr ombopag therapy, use of Dimension [place] TBIL is not recommended. Chloride [Moles/Vol] 100 mmol/L 98-107 [facility] Work Phone: Glucose [Mass/Vol] 89 mg/dL 74-106 [facility] Work Phone: Potassium [Moles/Vol] 3.6 mmol/L 3.5-5.1 [facility] Work Phone: Protein [Mass/Vol] 8.0 g/dL 6.4-8.2 [facility] Work Phone: Sodium [Moles/Vol] 136 mmol/L 136-145 [facility] Work Phone: Laboratory - Chemistry and C hemistry - challengeon 02-13-2022 ALP [Catalytic activity/Vol] 92 U/L 45-117 [facility] Work Phone: ALT [Catalytic activity/Vol] 41 U/L 13-56 [facility] Work Phone: CO2 [Moles/Vol] 29.0 mmol/L 21.0-32.0 [facility] Work Phone: Globulin (S) [Mass/Vol] 4.1 g/dL 2.2-4.2 [facility] Work Phone: Magnesium [Mass/Vol] 2.3 mg/dL 1.6-2.6 [facility] Work Phone: Urea nitrogen/Creatinine [Mass ratio] 20.2 mg/mg 10-20 [facility] Work Phone: No Panel Informationon 02-13 Estimated GFR (MDRD) Amer 57 mL/min >60 [facility] Work Phone: Comment on above: GFR Calc Estimated GFR (MDRD) Non-Af Amer 47 mL/min >60 [facility] Work Phone: Comment on above: Non- GFR Calc Serum or plasma albumin benito urement (mass/volume)on 02-13-2022 Albumin [Mass/Vol] 3.9 g/dL 3.2-5.0 [facility] Work Phone: Serum or plasma albumin/glob ulin mass ratioon 02-13-2022 Albumin/Globulin [Mass ratio] 1.0 {ratio} 0.9-2.4 [facility] Work Phone: Serum or plasma calcium benito urement (mass/volume)on 02-13-2022 Calcium [Mass/Vol] 9.1 mg/dL 8.5-10.1 [facility] Work Phone: Serum or plasma creatinine m easurement (mass/volume)on 02-13-2022 Creatinine [Mass/Vol] 1.19 mg/dL 0.55-1.02 [facility] Work Phone: Comment on above: The validity of the calculated GFR & GFRAA in patients over 70 years has not been determined. Clinical correlation is essential. Serum or plasma urea nitroge n measurement (mass/volume)on 02-13-2022 Urea nitrogen [Mass/Vol] 24 mg/dL 7-18 [facility] Work Phone: Thin prep Papanicolaou smear with manual screeningon 02-13-2022 Thin prep Papanicolaou smear with manual screening 39 U/L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 Medicare [id number] Medicare [id number] Private Health Insurance [id number] Unknown [id number] Unknown [id number] 2.16.8 [id number] Unknown [id number] 2.16.8 [id number] Unknown [id number] 2.16.8 [id number] Unknown [id number] 2.16.8 [id number] Unknown [id number] 2.16.8 [id number] Unknown [id number] 2.16.8 [id number] Unknown [id number] 2.16.8 40.1.275827.3.579.2.462 Unknown [id number] 2.16.8 40.1.959678.3.579.2.462 Unknown [id number] 2.16.8 40.1.070867.3.579.2.462 Unknown [id number] 2.16.8 40.1.783921.3.579.2.462 Unknown [id number] 2.16.8 40.1.152953.3.579.2.462 Unknown [id number] 2.16.8 40.1.675907.3.579.2.462 Unknown [id number] 2.16.8 40.1.762746.3.579.2.462 Unknown [id number] 2.16.8 40.1.055569.3.579.2.462 Unknown [id number] 2.16.8 40.1.440139.3.579.2.462 Unknown [id number] 2.16.8 40.1.502976.3.579.2.462 Unknown [id number] 2.16.8 [id number] Social History Date Type Detail [facility] Work Phone: Start: 1950 Sex Assigned At Female [facility] Start: 01-28-2022 End: 02-15-2023 Tobacco smoking status NHIS Unknown if ever smoked [facility] Start: 08-26-2024 [facility] ([facility] Start: 09-10-2024 End: 09-14-2024 Sex Female (finding) [facility] Radiology Diagnostic study note 09-10-2024 Note Date & Type Note Facility 09-10-2024 Radiology Diagnostic study note [facility] Imaging Services [address] [place] [address] Bone Survey Comp(Axial&Append) MR#: [id number] Acct: [id number] Name: OLGA STAFFORD Rep #: [id number] : 1950 F 74 From: Margret Gutierrez MD PCP: Dr. 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 COMPARISON: No relevant prior studies available. FINDINGS: BONES/JOINTS: Multilevel endplate degenerative changes and disc of the cervicalspine. Grade 1 anterior spondylolisthesis of L4 over L5. Multilevel facet arthropathy of L2 through S1. SOFT TISSUES: Unremarkable. VASCULATURE: Scattered calcified atherosclerotic disease of aorta. OTHER FINDINGS: Mild pulmonary congestion. RAD/Bone Survey Comp(Axial&Append) IMPRESSION: Degenerative changes of the spine as above. Otherwise, unremarkable exam. Reading Location: [facility]- CC: Dr. Meet Santos MD; Dr. Radha Rodas DO ~ [place]: Signed [facility] Radiology Diagnostic study note 09-06-2024 Note Date & Type Note Facility 09-06-2024 Radiology Diagnostic study note [facility] Imaging Services [address] [place] [address] [id number] ABD Limited w/ Elastography MR#: [id number] Acct: [id number] Name: OLGA STAFFORD Rep #: [id number] : 1950 F 74 From: Margret Stephens MD PCP: Dr. 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 [employer] S-shear wave elastography was performed for non-invasive assessment of liver tissue stiffness. FINDINGS: Liver: Borderline slightly echogenic. 17.0 cm in length. Gallbladder: Suspected layering sludge. No visualized stones, wall thickening or pericholecystic fluid. Reportedly, sonographic Lewis's was negative. Biliary tree: A cystic area associated with the CBD measures 1.0 x 1.5 x 0.9 cm. Upstream CBD measures 3 mm. Pancreas: Partially obscured by shadowing bowel gas, grossly unremarkable as visualized. Right kidney: Unremarkable. 10.9 cm in length. Other: No visualized free fluid. Hepatic elastography: Number of measurements: Total of 15 measurements obtained in 3 regions, 5 measurements per region. US probe: CA1-7A. EQI median: 6.8 kPa EQI median velocity: 1.5 m/s IQR/Med: 12.2-22.2% (kPa) and 6.2-10.8% (m/s). If the IQR/Med is IQR/median >30%(for kPa) or >15% in m/s, the variance in the measurements is a large and the accuracy of the measurement may be in question. US/ABD Limited w/ Elastography IMPRESSION: 1. Borderline slightly echogenic appearance of the liver which can be seen in early/mild medical liver disease such as steatosis. Correlate with clinical and laboratory evaluation. 2. Liver stiffness is 6.8 kPa. Per the below 2020 SRU criteria, this rules out compensated advanced chronic liver disease in the absence of other known clinical signs. If there are known clinical signs, further testing may be needed for confirmation. 3. 1.5 cm cystic focus associated with the CBD, unclear if this reflects fusiform dilatation of the CBD or a true cystic lesion. Upstream CBD appears normal in caliber. Choledochal cyst is within the differential. Recommend MRI abdomen with and without contrast, and with MRCP. 4. Additional description as above. Assessment is per the Update to the SRU Liver Elastography Consensus Statement (2020) Note that the above assessment of liver fibrosis is vendor-neutral and intended for use in fibrosis related to viral etiologies and non-alcoholic fatty-liver disease (NAFLD); in causes other than viral hepatitis and NAFLD, the cutoff values are currently not well established. In some patients with NAFLD, the cutoff values for cACLD may be lower (7-9 kPa). Note also that in the setting of elevated LFTs, nonfasting or vascular congestion, the stage of lifer fibrosis may be overestimated. Previous U reference values: <1.37 m/s (5.7kPa): No to mild fibrosis 1.37 m/s - 2.2 m/s: Moderate to severe fibrosis >2.2 m/s (15kPa): Significant fibrosis / cirrhosis Reading Location: [facility] CC: Dr. Meet Santos MD; Dr. Radha Rodas DO ~ [place]: Signed [facility] Evaluation note 07-05-2024 Note Date & Type Note Facility 07-05-2024 Evaluation note Diagnosis Onset Date Resolution Food allergy acute July 9:18am Hypergammaglobulinemia, unspecified acute August 26, 2024 2:46pm [facility] Work Phone: Progress note 08-07-2021 Note Date & Type Note Facility 08-07-2021 Note HNO ID: [id number] Author: Timur Quezada MD Service: ? Author Type: Physician Type: Progress Notes Filed: 08/08/2021 8:42 AM Note Text: This is a self-referral for an allergy and immunology evaluation. Olga Stafford is a 71 year old female [...] reaction to insect sting. FOOD ALLERGY: See [place]: The patient does not have a [...] only) - PAST SURGICAL HISTORY OF [facility], Dr. Shoemaker (normal) FAMILY HISTORY: Allergic rhinitis:no. Asthma: no. Eczema: no. Cystic fibrosis: no. Immunodeficiency: no. 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 [facility] Evaluation note Note Date & Type Note Facility Evaluation note No assessment information availa ble [facility] Work Phone: Evaluation note Note Date & Type Note Facility Evaluation note Diagnosis Onset Date Pes anserine bursitis acute [facility] Work Phone: Evaluation note Note Date & Type Note Facility Evaluation note Diagnosis Onset Date Pes anserine bursitis acute Urinary tract infection acut e [facility] Work Phone: Evaluation note Note Date & Type Note Facility Evaluation note Diagnosis Onset Date Bug bite without infection a cute [facility] Work Phone: Reason for referral (narrative) Note Date & Type Note Facility Reason for referral (narrative) No reason for referral information available [facility] Work Phone: Summary Purpose Family History No Family History Records Found Relationship Condition Age at Onset Recorded Date/T micheal mother Hypertension Unknown Cerebrovascular accident (CVA) Unknown father Hypertension Unknown Malignant neoplasm of prostate Unknown Advance Directives No Advanced Directives Records Found Advance Directive Response Recorded Date/ Time Advance Directives Yes October 26 4 12:53am Living Will Yes October 26, 2013 1 2:53am Power of Rural Health Consultant Yes October 26, 2013 12:53am Advance Directive Response Recorded Date/ Time Advance Directives Yes October 25 11:53pm Living Will Yes October 25, 2013 1 1:53pm Power of Rural Health Consultant Yes October 25, 2013 11:53pm Advance Directive Response Recorded Date/ Time Advance Directives Yes October 26 12:53am Procedure Findings Note HNO ID: [id number] Author: Kumar fernándezalfredo Varma Riley Service: General Surgery Author Type: Physician Type: Procedures Filed: 01/07/2019 4:51 PM Note Text: BEDSIDE PROCEDURE NOTE WOUND REPAIR Performed by: Juan Pablo Aguilar DO Authorized by: Lydia Fox MD Date/Start Time: 12/13/2018 4:30 PM Consent/[place] Protocol Written consent obtained: No, emergent procedure [...] No Suture Type: (more content not included)... Chief Complaint and Reason for Visit Chief Complaint LEFT KNEE xray LLE PAIN, R/O DVT SCREENING Reason for Visit Pes anserine bursiti s Chief Complaint LEFT KNEE xray LLE PAIN, R/O DVT SCREENING CONCERN FOR UTI Reason for Visit Pes anserine bursiti s Urinary tract infection Chief Complaint BUG BITE Encounter for other screening for malignant neopla Reason for Visit Bug bite without inf ection Chief Complaint Admit Date vomiting after protein July 05 9:18am E-ORDER July 12, 2024 9:44am ABNORMAL IMMUNOLOGICAL August 26, 2024 2:46pm Hypergammaglobulinemia, unspecified Apri l 2024 7:26am Hypergammaglobulinemia, unspecified Apri l 2024 11:35am Reason for Visit Admit Date Food allergy July 05, 2024 9 :18am Hypergammaglobulinemia, unspecified Santiago h 2024 2:46pm Chief Complaint Admit Date vomiting after protein July 05 9:18am E-ORDER July 12, 2024 9:44am ABNORMAL IMMUNOLOGICAL August 26, 2024 2:46pm Hypergammaglobulinemia, unspecified Apri l 2024 7:26am Hypergammaglobulinemia, unspecified Apri l 2024 11:35am MED ONC October 14, 2024 1:55p m 3 M FU October 18, 2024 8:27a m Additional Source Comments INFORMATION SOURCE (unrecogn ized section and content) DATE CREATED AUTHOR 12/20/2018 [facility] DATE CREATED AUTHOR AUTHOR'S ORGANIZ ATION 01/07/2019 [facility] DATE CREATED AUTHOR AUTHOR'S ORGANIZ ATION 08/28/2021 [facility] DATE CREATED AUTHOR AUTHOR'S ORGANIZ ATION 11/13/2024 [facility] Goals (unrecognized section and content) Goals may be documented in a n alternate sectionGoals may be documented in an alternate sectionGoals may be documented in an alternate sectionGoals may be documented in an alternate sectionGoals may be documented in an alternate sectionGoals may be documented in an alternate sectionGoals may be documented in an alternate sectionGoals may be documented in an alternate sectionGoals may be documented in an alternate sectionGoals may be documented in an alternate section Care Teams (unrecognized sec tion and content) Team Status: Active Member Role Status Dates Dr. Radha Rodas DO Family Provider Active Dr. Radha Rodas DO Primary Care Provider Active Team Status: Inactive Member Role Status Dates Dr. Radha Rodas DO Primary Care Provider, Referring P daniella Active Monique Ceballos PA, PA Attending Provider Active Team Status: Inactive Member Role Status Dates Dr. Radha Rodas DO Primary Care Provider, Attending P daniella Active Team Status: Inactive Member Role Status Dates Dr. Radha Rodas DO Primary Care Provide r, Attending Provider, Referring Provider Active Team Status: Active Member Role Status Dates Dr. Radha Rodas DO Primary Care Provider Active Team Status: Inactive Member Role Status Dates Dr. Radha Rodas DO Primary Care Provider Active Start: May 18, 2024 End: May 18, 2024 Dr. Radha Rodas DO Attending Provider Active St art: May 18, 2024 End: May 18, 2024 Dr. Radha Rodas DO Referring Provider Active St art: May 18, 2024 End: May 18, 2024 Team Status: Inactive Member Role Status Dates Dr. Radha Rodas DO Primary Care Provider Active Start: July 05, 2024 End: July 05, 2024 Dr. Radha Rodas DO Referring Provider Active St art: July 05, 2024 End: July 05, 2024 Dr. Alejandro Roy DO Attending Provider Active Start: July 05, 2024 End: July 05, 2024 Team Status: Inactive Member Role Status Dates Dr. Radha Rodas DO Primary Care Provider Active Start: July 05, 2024 End: July 05, 2024 Dr. Alejandro Roy DO Attending Provider Active Start: July 05, 2024 End: July 05, 2024 Dr. Alejandro Roy DO Referring Provider Active Start: July 05, 2024 End: July 05, 2024 Team Status: Inactive Member Role Status Dates Dr. Radha Rodas DO Primary Care Provider Active Start: July 12, 2024 End: July 12, 2024 VICKY Pereira Attending Provider Active Start: July 12, 2024 End: July 12, 2024 VICKY Pereira Referring Provider Active Start: July 12, 2024 End: July 12, 2024 Team Status: Inactive Member Role Status Dates Dr. Meet Santos MD Attending Provider Active S tart: August 26, 2024 End: August 26, 2024 Dr. Alejandro Roy DO Referring Provider Active Start: August 26, 2024 End: August 26, 2024 Team Status: Inactive Member Role Status Dates Dr. Meet Santos MD Attending Provider Active S tart: September 06, 2024 End: September 06, 2024 Dr. Meet Santos MD Referring Provider Active S tart: September 06, 2024 End: September 06, 2024 Dr. Radha Rodas DO Primary Care Provider Active Start: September 06, 2024 End: September 06, 2024 Team Status: Active Member Role Status Dates Dr. Meet Santos MD Attending Provider Active S tart: September 08, 2024 Dr. Meet Santos MD Referring Provider Active S tart: September 08, 2024 Dr. Radha Malys , DO Primary Care Provider Active Start: September 08, 2024 Team Status: Inactive Member Role Status Dates Dr. Meet Santos MD Attending Provider Active S tart: September 08, 2024 End: September 08, 2024 Dr. Meet Santos MD Referring Provider Active S tart: September 08, 2024 End: September 08, 2024 Dr. Radha Rodas , Primary Care Provider Active Start: September 08, 2024 End: September 08, 2024 Team Status: Active Member Role Status Dates Dr. Meet Santos MD Attending Provider Active S tart: October 14, 2024 Dr. Meet Santos MD Referring Provider Active S tart: October 14, 2024 Dr. Radha Rodas , Primary Care Provider Active Start: October 14, 2024 Team Status: Inactive Member Role Status Dates Dr. Radha Rodas DO Primary Care Provider Active Start: October 18, 2024 End: October 18, 2024 Dr. Radha Rodas DO Referring Provider Active St art: October 18, 2024 End: October 18, 2024 Dr. Alejandro Roy , Attending Provider Active Start: October 18, 2024 End: October 18, 2024 FOR RECORDS PERTAINING TO PATIENTS WHO ARE [...] BE BASED ON THE PRIMARY CLINICAL RECORDS. [employer] provides no warranty or guarantee of the accuracy or completeness of information in this document.
[2024-11-17] MEDS: Lactated Ringers 1,000 ML 15 ML IV (06:06)
--- NOTE | 2024-11-17 06:24 | PCM.PRE.AN2 ---
ASA Classification* ASA Classification ASA Classification: 2 Assessment & Plan Anesthesia* Anesthesia Assessment Anesthesia Assessment: Discussed sedation and/or anesthesia options, risks, benefits, and alternatives with patient/parents/legal guardian/POA. Questions invited. The patient/parents/legal guardian/POA seems to understand and agrees to proceed with anesthesia plan. Reviewed the physical assessment, medical history, allergy history and patient home medications list prior to surgery/procedure/anesthetic and documented any changes. Performed airway and anesthesia risk assessments. Anesthesia Type Anesthesia Type: MAC History Source History Obtained from:: Patient and Chart Anesthesia Focused Assessment* Temperature: 97.3 F Pulse Rate: 52 Blood Pressure: 126/75 Respiratory Rate: 12 Pulse Ox: 98 Oxygen Delivery Method: Room Air Airway Assessment Mouth opens: >3 cm Mallampati Score: I Teeth Condition: Caps/Crowns (Patient has several crowns. They are all tight.) Neck Range of motion (ROM): Limited ROM (Somewhat decreased extension) Labs Anesthesia Preop lab: CBC WBC 4.5 K/mm3 (4.4-11.0) 10/14/24 14:04 10/14/24 RBC 4.35 M/mm3 (4.2-5.4) 10/14/24 14:04 10/14/24 Hgb 12.8 g/dL (12.0-15.0) 10/14/24 14:04 10/14/24 Hct 37.4 % (37-47) 10/14/24 14:04 10/14/24 Plt Count 174 K/mm3 (150-450) 10/14/24 14:04 10/14/24 CHEMISTRY Potassium 3.9 mmol/L (3.3-5.1) 10/14/24 14:04 10/14/24 Sodium 139 mmol/L (133-145) 10/14/24 14:04 10/14/24 Magnesium 2.3 mg/dL (1.6-2.6) 02/13/22 16:13 02/13/22 BUN 17 mg/dL (4-19) 10/14/24 14:04 10/14/24 Creatinine 0.73 mg/dL (0.70-1.20) 10/14/24 14:04 10/14/24 Glucose 92 mg/dL (70-99) 10/14/24 14:04 10/14/24 TSH 3.540 uIU/mL (0.358-3.740) 05/18/24 06:11 05/18/24 COAG Pre-Assessment Diagnosis/Proposed Procedure Planned Operative Procedure(s): EGD Anesthesia History Anesthesia History - 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 When Was Last Pacemaker Check QUESTION #4 FULL TEXT: You/Your Family Experience fever (hyperthermia) with Anesthesia Last Oral Intake Last Oral intake: Last Oral Intake NPO since 21:00 11/17/24 05:55 Meds taken in AM with sips of No 11/17/24 05:55 water? Meds patient instructed to take am of surgery PONV PONV - director of child welfare services: PONV - director of child welfare services Female Yes 11/15/24 13:17 HX of Motion Sickness Yes 11/15/24 13:17 HX of N/V After Surgery No 11/15/24 13:17 Non-Smoker Yes 11/15/24 13:17 Duration of Surgery greater No 11/15/24 13:17 than 60 minutes Number of Risk Factors 3 11/15/24 13:17 PONV Score Moderate Risk 11/15/24 13:17 Height & Weight Height & Weight: Anesthesia: Height & Weight Height 5 ft 2 in 11/17/24 05:55 Weight: 57 kg 11/17/24 05:55 Body Mass Index (BMI) 22.9 11/17/24 05:55 Respiratory Assessment Respiratory Assessment - director of child welfare services: Respiratory Tract Infection Hx - director of child welfare services Hx Respiratory Tract Infection No 11/15/24 13:17 STOP Sleep Apnea STOP Sleep Apnea - director of child welfare services: STOP Sleep Apnea - director of child welfare services Hx Hypertension No 11/15/24 13:17 Hx Sleep Apnea No 11/15/24 13:17 CPAP No 11/15/24 13:17 BIPAP No 11/15/24 13:17 Do you snore loudly (louder No 11/15/24 13:17 than talking or can be heard Do you often feel tired/ No 11/15/24 13:17 fatigued/ sleepy during daytime? Has anyone observed you stop No 11/15/24 13:17 breathing during sleep? STOP Results Negative 11/15/24 13:17 QUESTION #5 FULL TEXT : Do you snore loudly (louder than talking or can be heard through closed doors)? Tobacco Use History Tobacco Use History - director of child welfare services: Tobacco Use History - director of child welfare services Tobacco Use Smoking Status Never smoker 11/15/24 13:17 Hx Tobacco Use No 11/15/24 13:17 Years Smoking Packs Smoked per Day Smoking Cessation Date was within the last 15 years Hx Smoking Cessation Date Hx Smoking Cessation Counseling Hematologic Medial History Hematologic Hx - director of child welfare services: Hematologic Medical Hx - disintegrator feeder Hx of Blood Transfusion No 11/15/24 13:17 Hx of Transfusion in last 3 No 11/15/24 13:17 Months Date of Last Transfusion (if within last 3 months) Ever experience any problems No 11/15/24 13:17 with transfusion(s)? Specify any problems Hx of Preganancy in last 3 No 11/15/24 13:17 Months Nurse Filling Out Transfusion VCHRISTIN 11/15/24 13:17 & Questions: Date: 11/15/24 11/15/24 13:17 Time: 13:18 11/15/24 13:17 Patient unable to answer at this time (ie. confused, unrespo /Reproduction History /Reproductive History - director of child welfare services: /Reproductive Hx- director of child welfare services Hx Now Gestational Age (in weeks): EDC: Hx Hx Para Hx Section SAB Active Medications Active Medications: Current Medications Generic Name Dose Route Start Last Admin Trade Name Freq PRN Reason Stop Dose Admin Lactated Ringer's 1,000 mls @ 15 mls/hr 11/17/24 05:45 11/17/24 06:06 IV 15 mls/hr .Q48H BENITA Administration PFSH Medical History Wears glasses Post-menopausal Alcohol use Arthritis Injury of head and neck Loss of consciousness Non-smoker Knee pain Home Medications ?Medication ?Instructions ?Recorded ?Last Taken ?Type cetirizine 10 mg tablet 10 mg PO QDAY #30 tabs 10/18/24 11/16/24 Rx diphenhydramine HCl 25 mg capsule 25 mg PO QHS 11/15/24 11/16/24 History (Aler-Cap) Allergy/AdvReac Type Severity Reaction Status Date / Time Penicillins Allergy Hives Verified 11/17/24 05:55 Family History Mother Hypertension CVA (cerebral vascular accident) Father Hypertension Prostate cancer Surgical History History of appendectomy Hx of appendectomy Social History Smoking Status: Never smoker alcohol intake: current alcohol intake frequency: holidays/special occasions only substance use type: does not use what type of physical activity do you participate in: walking and bicycling Review of Systems (Anesthesia) ROS Narrative System reviewed and no additional complaints, except as documented.
--- NOTE | 2024-11-17 06:30 | EGD_PTH ---
PATIENT: ALIE SALMERON LOC: EN U#:[id number] AGE/SX: 74/F ROOM: RE11/17/[address]: Dr. Alejandro Roy DO : 1950 BED: DIS: 11/17/2024 SPEC #: [id number] RECD: 11/17/24 10:00 STATUS: PATI [place] #: [id number] [place] DELIA: 11/17/24 06:[address]: Alejandro Roy DEPT: SURGICAL PATHOLOGY RECD BY: Les Boothe ENTERED: 11/17/24 10:57 SP TYPE: EGD BIOPSY JOSEPH DR: Dr. Radha Rodas DO Tissues: A - Duodenum, NOS B - Gastric mucous membrane C - Esophagus, NOS Procedures: Immunohistochemical Stains Surgery Specimen Level IV HEADER OPERATION: EGD with biopsy PRE-OP DIAGNOSIS: Food intolerance in adult, food allergy, abdominal pain TISSUE SUBMITTED: A- Duodenum biopsy, B- Gastric body biopsy, C- Random esophagus biopsy MICROSCOPIC DIAGNOSIS A. Duodenum, biopsy: Normal villous architecture with increased Intraepithelial lymphocytes - see note. Note: This pattern of injury is etiologically nonspecific?and the differential diagnosis includes sensitivity to gluten and non-gluten proteins, small intestinal bacterial overgrowth, stasis related changes, infection, protein calorie malnutrition, tropical sprue, and medication injury (NSAIDs, Olmesartan / Benicar, Mycophenolic acid, Idelalisib, for example). If celiac disease is a clinical concern, additional clinical studies, such as tTG-IgA, are recommended. B. Gastric body, biopsy: Oxyntic mucosa with no specific pathologic change. IHC negative for H.pylori organisms. C. Esophagus, random biopsy: Squamous mucosa with no specific pathologic change. Negative for eosinophils. MICROSCOPIC DESCRIPTION Slides are reviewed. GROSS DESCRIPTION A. Received in fixative is one container labeled with the patient's name and designated Duodenum biopsy. The specimen consists of two irregular fragments of light hoyos soft tissue that in aggregate measure 0.4 and 0.6 cm. The specimen is totally submitted in one cassette. B. Received in fixative is one container labeled with the patient's name and designated Gastric body biopsy. The specimen consists of two irregular fragments of light hoyos soft tissue that in aggregate measure 0.4 and 0.7 cm. The specimen is totally submitted in one cassette. C. Received in fixative is one container labeled with the patient's name and designated Random esophagus biopsy. The specimen consists of three irregular fragments of light hoyos soft tissue that in aggregate measure <0.1 to 0.5 cm. The specimen is totally submitted in one cassette. JOVANNA/ 11/17/2024 CPT:32187g4,42209
--- NOTE | 2024-11-17 06:49 | PCM.HP.STD ---
HPI - General General Date of Admission: 11/17/24 Date of Service: 11/17/24 Chief Complaint: Evaluation of nausea and vomiting HPI Narrative ALIE SALMERON, is a 74 F who presents nausea and vomiting *BGI established 2.3.25 pt reports that for the last several years she has been having random episodes of vomiting 4 hours after she has eaten certain foods. pt reports that she has had scopes and a GET, has seen a few gastroenterologists and allergists, and hasn't found a answer for her symptoms. She provided a detailed synopsis over the last 10 years of which she has been experiencing. This started back in August 2013 where she had a first episode of nausea and vomiting after eating sánchez. Patient said she did not keep a record of each episode but she did notice that after the lamp incident she also the same incident with fish, pepitas, black beans, pecans and walnuts. The same year in April 2014 she underwent imaging by her PCP at [facility] that showed a large amount of stool and delayed gastric emptying on a gastric emptying study. From 2013 and 2021 she had random bouts of vomiting probably eating types of foods such as, chickpeas, fish, pepitas, black beans, pecans and walnuts. Her treatment up until 2021 was food avoidance. In July 2021 she had saw an stockroom associate at previous clinic and was diagnosed with food protein induced enterocolitis syndrome. Treatment was recommended In May 2024 she had breast spinach salad and had the same reaction. Up until that time avoiding those other foods that cause the problem was successful. However because of this new episode she came in for consultation. Referred to hematology for elevated IgG levels US and elastography 4.7.25 hepatic measurement 17cm with fatty infiltration, stiffness measures 6.8kPa OV 5.19.25 pt reports that she has not eaten any foods that have caused an episode, but states that she is feeling discouraged with not having any answers or treatment for her symptoms. Pt reports she is having a bm every 2-3 days and takes Miralax as needed. [facility] Medical History Wears glasses Post-menopausal Alcohol use Arthritis Injury of head and neck Loss of consciousness Non-smoker Knee pain Home Medications ?Medication ?Instructions ?Recorded ?Last Taken ?Type cetirizine 10 mg tablet 10 mg PO QDAY #30 tabs 10/18/24 11/16/24 Rx diphenhydramine HCl 25 mg capsule 25 mg PO QHS 11/15/24 11/16/24 History (Aler-[facility]) Allergy/AdvReac Type Severity Reaction Status Date / Time Penicillins Allergy Hives Verified 11/17/24 05:55 Family History Mother Hypertension CVA (cerebral vascular accident) Father Hypertension Prostate cancer Surgical History History of appendectomy Hx of appendectomy Social History Smoking Status: Never smoker alcohol intake: current alcohol intake frequency: holidays/special occasions only substance use type: does not use what type of physical activity do you participate in: walking and bicycling ROS Constitutional Constitutional: Denies fatigue, fever(s), poor appetite, weight gain or weight loss Gastrointestinal Gastrointestinal: Denies belching, bloating, change in bowel habits, change in stool character, chewing difficulty, coffee ground emesis, constipation, cramping, diarrhea, dyspepsia, dysphagia, early satiety, excessive flatus, fecal incontinence, heartburn, hematemesis, hematochezia, hemorrhoids, loose stools, melena, nausea, odynophagia, rectal bleeding, tenesmus, vomiting or weight changes Vital Signs Vital Signs Vital Signs: 11/17/24 05:55 11/17/24 05:55 11/17/24 06:29 Temperature 97.3 F L 97.3 F L Temperature Source Temporal Pulse Rate 52 L 52 L Respiratory Rate 12 12 Respiratory Pattern Normal Blood Pressure 126/75 H 126/75 H Blood Pressure Mean 92 Blood Pressure Source Monitor Blood Pressure Position Semi-Fowlers Blood Pressure Location Left Arm Pulse Ox 98 98 Oxygen Delivery Method Room Air Room Air Weight Weight: 125 lb 10.616 oz Body Mass Index (BMI) 22.9 Physical Exam Const alert, oriented x3, no apparent distress and healthy appearing General Appearance: cooperative GI normal to inspection, nondistended, normoactive bowel sounds, soft to palpation, non-tender and non-distended Percussion: normal to percussion Rectal Exam: deferred Assessment & Plan Assessment/Plan (1) Food intolerance in adult: (2) Food allergy: (3) Abdominal pain: PLAN: Assessment and Plan Assessment and Plan (1) Food allergy: Status: Acute Plan: 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 The diagnosis was confirmed by gastric emptying study. I suspect that she does have gastroparesis but the gastric emptying study was done and she did not have his food substances. At this time I cannot identify any trigger without follow-up and blood test and possibly repeating her gastric emptying study. We would include allergy testing along with some autoimmune testing for diseases such as Sjogren syndrome to see if there are any disease processes that would contribute to her developing idiopathic gastroparesis not associated with diabetes. And electrogastrography, by gastric endoscopy/histology, and finally by allergy tests. (2) Transaminitis: Status: Acute Plan: COMP METABOLIC GLU 92 70-99 mg/dL BUN 17 4-19 mg/dL CREAT,SERUM 0.73 0.70-1.20 mg/dL eGFR 86 >60 mL/min/1.73m2 CKD-EPI Creatinine Equation (2020) BUN/CRE 23.1 H 10-20 RATIO T PROT 7.5 5.9-8.4 g/dL ALB 4.5 3.4-4.8 g/dL GLOB 3.1 2.2-4.2 g/dL A/G 1.5 0.9-2.4 RATIO Calcium 9.6 7.6-11.0 mg/dL AST 42 H <=31 U/L ALK PHOS 67 35-104 U/L ALT 36 H <=34 U/L T BILI 0.43 0.00-1.30 mg/dL NA 139 133-145 mmol/L Potassium 3.9 3.3-5.1 mmol/L CL 104 98-108 mmol/L CO2 25.7 21.0-32.0 mmol/L GAP 9 5-15 C-REACTIVE PROT < 3.00 0.0-3.0 mg/L Vitamin B12 660 180-914 pg/mL Grayscale and color Doppler imaging of the right upper quadrant was performed. farmhopping S-shear wave elastography was performed for non-invasive assessment of liver tissue stiffness. FINDINGS: Liver: Borderline slightly echogenic. 17.0 cm in length. Gallbladder: Suspected layering sludge. No visualized stones, wall thickening or pericholecystic fluid. Reportedly, sonographic Lewis's was negative. Biliary tree: A cystic area associated with the CBD measures 1.0 x 1.5 x 0.9 cm. Upstream CBD measures 3 mm. Pancreas: Partially obscured by shadowing bowel gas, grossly unremarkable as visualized. Right kidney: Unremarkable. 10.9 cm in length. Other: No visualized free fluid. Hepatic elastography: Number of measurements: Total of 15 measurements obtained in 3 regions, 5 measurements per region. US probe: CA1-7A. EQI median: 6.8 kPa EQI median velocity: 1.5 m/s IQR/Med: 12.2-22.2% (kPa) and 6.2-10.8% (m/s). If the IQR/Med is IQR/median >30% (for kPa) or >15% in m/s, the variance in the measurements is a large and the accuracy of the measurement may be in question. US/ABD Limited w/ Elastography IMPRESSION: 1. Borderline slightly echogenic appearance of the liver which can be seen in early/mild medical liver disease such as steatosis. Correlate with clinical and laboratory evaluation. 2. Liver stiffness is 6.8 kPa. Per the below 2020 SRU criteria, this rules out compensated advanced chronic liver disease in the absence of other known clinical signs. If there are known clinical signs, further testing may be needed for confirmation. 3. 1.5 cm cystic focus associated with the CBD, unclear if this reflects fusiform dilatation of the CBD or a true cystic lesion. Upstream CBD appears normal in caliber. Choledochal cyst is within the differential. Recommend MRI abdomen with and without contrast, and with MRCP. The differential diagnosis for mildly elevated transaminitis over 10-year period only 1 times greater than upper limit of normal is lean Sapp as her BMI is 25. Also logical diagnosis would be muscle enzyme increase secondary to medications or underlying muscle inflammatory disease. Recommend vitamin E 400-800 national units. Repeat FibroScan in a year. Ultrasound also shows a 1.5 cm possible cystic focus associated with the CBD which would be a type I choledochal cyst versus just a fusiform dilation of the CBD. We will get an MRI with and without contrast. (3) Food intolerance in adult: Status: Acute Plan: For a food intolerance we will try to desensitize her with her protein intolerance at this time. She will take cetirizine 10 mg p.o. daily plus prednisone 20 mg and famotidine 20 mg for a week. The next week she will only take the prednisone and famotidine and then after that she will only take prednisone for the next week and stop all medications to the fourth week. She will call and give us an update to see how the medication recommendations are working. After that she will try it with tree nuts. Medications: New prednisone 20 mg PO QDAY 30 tabs 1RF 30 days famotidine 20 mg PO QDAY 30 tabs 1RF cetirizine 10 mg PO QDAY 30 tabs 1RF
--- NOTE | 2024-11-17 07:07 | OP.CCLET_ITS ---
11/17/2024 Radha Rodas [address] [place] [address] Re : Upper GI endoscopy procedure for Olga Stafford Dear Dr. Rodas This procedure was performed on Sunday, November 17, 2024. My impressions and recommendations are as follows: Impressions : - Normal esophagus. Biopsied. - Erythematous mucosa in the gastric body. Biopsied. - Erythematous duodenopathy. Biopsied. Recommendations : - Discharge patient to home. - Resume previous diet. - Continue present medications. - Await pathology results. My findings are described in the full procedure note, which is enclosed. If I can be of further assistance, please feel free to contact me at . Sincerely, Alejandro Roy, 11/17/2024 7:06:53 AM This report has been signed electronically.
--- NOTE | 2024-11-17 07:07 | OP.EGD_ITS ---
Patient Name: Olga Stafford Procedure Date: 11/17/2024 6:09 AM Date of : 1950 Age: 74 Procedure: Upper GI endoscopy Indications: Epigastric abdominal pain, Functional Dyspepsia, Failure to respond to medical treatment Providers: Alejandro Roy DO Referring MD: Radha Rodas Medicines: Monitored Anesthesia Care Patient Profile: This is a 74 year old female. Refer to note in patient chart for documentation of history and physical. Patient has symptoms of acute abdominal cramping, acute epigastric abdominal pain, chronic nausea and acute vomiting. Complications: No immediate complications. Procedure: Pre-Anesthesia Assessment: - Prior to the procedure, a History and Physical was performed, and patient medications and allergies were reviewed. The patient is competent. The risks and benefits of the procedure and the sedation options and risks were discussed with the patient. All questions were answered and informed consent was obtained. Patient identification and proposed procedure were verified by the physician in the pre-procedure area. Mental Status Examination: alert and oriented. Airway Examination: normal oropharyngeal airway and neck mobility. Respiratory Examination: clear to auscultation. CV Examination: normal. Prophylactic Antibiotics: The patient does not require prophylactic antibiotics. Prior Anticoagulants: The patient has taken no anticoagulant or antiplatelet agents except for NSAID medication. ASA Grade Assessment: II - A patient with mild systemic disease. After reviewing the risks and benefits, the patient was deemed in satisfactory condition to undergo the procedure. The anesthesia plan was to use monitored anesthesia care (MAC). Immediately prior to administration of medications, the patient was re-assessed for adequacy to receive sedatives. The heart rate, respiratory rate, oxygen saturations, blood pressure, adequacy of pulmonary ventilation, and response to care were monitored throughout the procedure. The physical status of the patient was re-assessed after the procedure. After obtaining informed consent, the endoscope was passed under direct vision. Throughout the procedure, the patient's blood pressure, pulse, and oxygen saturations were monitored continuously. The Endoscope was introduced through the mouth, and advanced to the third part of the duodenum. Small bowel enteroscopy was deemed necessary. The upper GI endoscopy was accomplished without difficulty. The patient tolerated the procedure well. Scope In: 6:58:45 AM Scope Out: 7:03:22 AM Total Procedure Duration Time 0 hours 4 minutes 37 seconds Findings: The examined esophagus was normal. Biopsies were taken with a cold forceps for histology. Verification of patient identification for the specimen was done. Estimated blood loss was minimal. Patchy mildly erythematous mucosa without bleeding was found in the gastric body. Biopsies were taken with a cold forceps for histology. Biopsies were taken with a cold forceps for Helicobacter pylori testing. Verification of patient identification for the specimen was done. Estimated blood loss was minimal. Patchy mildly erythematous mucosa without active bleeding and with no stigmata of bleeding was found in the duodenal bulb. Biopsies were taken with a cold forceps for histology. Verification of patient identification for the specimen was done. Estimated blood loss was minimal. Impression: - Normal esophagus. Biopsied. - Erythematous mucosa in the gastric body. Biopsied. - Erythematous duodenopathy. Biopsied. Recommendation: - Discharge patient to home. - Resume previous diet. - Continue present medications. - Await pathology results. Procedure Code(s): --- Professional --- 88978, Small intestinal endoscopy, enteroscopy beyond second portion of duodenum, not including ileum; with biopsy, single or multiple CPT copyright 2021 [employer]. All rights reserved. The codes documented in this report are preliminary and upon inter fold roll cutter review may be revised to meet current compliance requirements. Alejandro Roy DO 11/17/2024 7:06:53 AM This report has been signed electronically. Number of Addenda: 0 Note Initiated On: 11/17/2024 6:09 AM
--- NOTE | 2024-11-17 07:11 | PCM.POST.ANE ---
Anesthesia: Postop Eval I Current Vital Signs Temperature: 97.8 F Pulse Rate: 57 Blood Pressure: 89/54 Respiratory Rate: 16 Pulse Ox: 97 Oxygen Delivery Method: Room Air Assessment Airway patent: Yes Spontaneous unlabored respirations: Yes Mental status: Asleep nausea: No Vomiting: No Anesthesia Complication: No Fluid Hydration Crystalloid volume administer (ml): 300 Total IV fluid infused: 300 Progress Note Anesthesia document: Postop Eval 1 completed: Yes
--- NOTE | 2024-11-17 10:09 | PCM.POSTANE2 ---
Anesthesia Postop Eval I Sum Postop Eval Completion status Anesthesia document: Postop Eval 1 completed: Yes Anesthesia Postop Eval I Summary Anesthesia Postop Eval I Summary: Anesthesia Postop Eval I: Assessment Summary Airway patent Yes 11/17/24 07:12 [email or web address] Spontaneous unlabored Yes 11/17/24 07:12 [email or web address] respirations Mental status Asleep 11/17/24 07:12 [email or web address] nausea No 11/17/24 07:12 [email or web address] Vomiting No 11/17/24 07:12 [email or web address] Anesthesia Postop Eval I: Fluid Summary Crystalloid volume administer 300 11/17/24 07:12 [email or web address] (ml) Colloids volume administered ( ml) Blood Product volume administered (ml) Total IV fluid infused 300 11/17/24 07:12 [email or web address] Anesthesia Postop Eval I: Summary Notes Anesthesia Complication No 11/17/24 07:12 [email or web address] Anesthesia Complication Comment: Post-operative progress note Anesthesia: Postop Eval II Evaluation Mental status: Awake Pain Level: 0 nausea: No Vomiting: No
== END 2024-11-17 08:11 | disposition home or self-care (01) ==
LOC: EN 05:24 → AC 05:26
PROVIDERS: PCP Family Medicine; Referring Provider Family Medicine; Visit Provider Internal Medicine Gastroenterology
PROC: 0DJ08ZZ Inspection of Upper Intestinal Tract, Via Natural or Artificial Opening Endoscopic (ICD-10-PCS; CPT 43235; principal; 2024-11-17 06:25)
DX: R10.9 Unspecified abdominal pain (principal); K31.84 Gastroparesis; R74.01 Elevation of levels of liver transaminase levels; Z91.018 Allergy to other foods; Z79.899 Other long term (current) drug therapy
CPT/HCPCS: 43239; 88305; 88342; J2405

== ENCOUNTER → 2024-12-01 | Outpatient (CLI) | payer MEDICARE, SELFPAY ==
--- NOTE | 2024-12-01 16:59 | MRI_ITS ---
PROCEDURE: MRI ABD WITH AND W/O CONTRAST with MRCP, 12/01/2024 REASON FOR EXAM: CBD DILATION TECHNIQUE: Multiplanar multisequence MRI abdomen was performed with and without IV contrast. MRCP also performed including rotating 3D/MIP reconstructions IV contrast: 12 mL Clariscan COMPARISON: 09/06/2024 FINDINGS: Variable overall mild/moderate motion limitation. A few sequences are moderately motion degraded. Note the exam is slightly limited by the lack of a true late arterial phase of postcontrast imaging with initial postcontrast imaging performed in the early arterial phase and subsequent postcontrast imaging performed in the hepatic venous phase. Axial T2 fat-sat was not performed. Liver: Normal background signal characteristics. Suspect a punctate T2 bright 5 mm hypoenhancing focus in the RIGHT hepatic dome difficult to further characterize due to the combination of motion and minute size, possible cyst in the absence of known malignancy. Spleen: Unremarkable. Gallbladder/biliary: Unremarkable gallbladder. Fusiform dilatation of the common hepatic duct to 10 mm probably corresponding to the sonographic finding. No associated abnormal enhancement or definite associated nodular soft tissue. There is at most trace upstream central intrahepatic biliary dilatation. CBD top-normal in caliber at 6 mm no filling. Defect to suggest choledocholithiasis. Pancreas: Unremarkable. No ductal dilatation. Adrenals: Unremarkable. Kidneys: Unremarkable. Bowel: Not well evaluated by MRI; no gross bowel dilatation. Colonic stool burden appears high.. Lymph nodes: Prominent but technically nonenlarged periportal nodes.. Vasculature: Atherosclerosis. Minimal ectasia of the aorta to 2.2 x 1.9 cm.. Peritoneum: Unremarkable Bones: Unremarkable. MRI/MRI Abd WITH and W/O Contrast IMPRESSION: 1. Somewhat motion limited exam. 2. Fusiform dilatation of the common hepatic duct to 10 mm, accounting for the sonographic finding. No abnormal enhancement or nodular soft tissue identified. 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 There is at most trace upstream central intrahepatic biliary ductal dilatation. Clinical follow-up is recommended including GI consultation for management. Correlate with serum bilirubin and consider further evaluation by ERCP, as indicated. 3. Additional description as above. Reading Location: [id number]
== END | disposition home or self-care (01) ==
LOC: OPMRI 16:22
PROVIDERS: PCP Family Medicine; Referring Provider Internal Medicine Gastroenterology; Visit Provider Internal Medicine Gastroenterology
DX: K83.8 Other specified diseases of biliary tract (principal)
CPT/HCPCS: 74183; A9575; A4216

== ENCOUNTER 2025-03-31 07:56 | Day surgery (SDC) | payer MEDICARE, SELFPAY ==
[2025-03-31] VITALS (12 sets, daily range): BP systolic 96–134; BP diastolic 58–78; PULSE 49–70; RESP 14–16; TEMP 36.1–36.6; O2SAT 95–100; BMI 22.9
--- NOTE | 2025-03-31 08:00 | RAD_ITS ---
PROCEDURE: ERCP BILIARY/PANCREAS; O.R. FLUORO FOR C-ARM 03/31/2025 REASON FOR EXAM: ERCP TECHNIQUE: Procedure Code: RADERCP; RADORFL_C_ARM Modality: DX Procedure: ERCP BILIARY/PANCREAS; O.R. FLUORO FOR C-ARM Fluoroscopy time: 172.4 seconds. Dose: 24.16 mGy. COMPARISON: None. RAD/O.R. Fluoro for C-Arm IMPRESSION: Intraoperative fluoroscopy for ERCP. 10 fluoroscopic images were also obtained . Reading Location: [place] [address]
--- NOTE | 2025-03-31 08:00 | RAD_ITS ---
PROCEDURE: ERCP BILIARY/PANCREAS; O.R. FLUORO FOR C-ARM 03/31/2025 REASON FOR EXAM: ERCP TECHNIQUE: Procedure Code: RADERCP; RADORFL_C_ARM Modality: DX Procedure: ERCP BILIARY/PANCREAS; O.R. FLUORO FOR C-ARM Fluoroscopy time: 172.4 seconds. Dose: 24.16 mGy. COMPARISON: None. RAD/ERCP Biliary/Pancreas IMPRESSION: Intraoperative fluoroscopy for ERCP. 10 fluoroscopic images were also obtained . Reading Location: [place] [address]
--- NOTE | 2025-03-31 08:04 | EKG12_ITS ---
Test Reason : pre op Blood Pressure : */* mmHG Vent. Rate : 53 BPM Atrial Rate : 53 BPM P-R Int : 160 ms QRS Dur : 80 ms QT Int : 444 ms P-R-T Axes : 74 2 51 degrees QTcB Int : 416 ms Sinus bradycardia Otherwise normal ECG When compared with ECG of 06-Mar-2006 15:59, No significant change was found Confirmed by EWELINA CORADO, NENA ([id number]), features editor PETE ROMAN ([id number]) on 04/02/2025 8:06:09 AM Referred By: Radha Rodas Confirmed By: NENA THEODORE MD
[2025-03-31] MEDS: Lactated Ringers 1,000 ML 15 ML IV (08:23)
--- NOTE | 2025-03-31 09:00 | FLU_PTH ---
PATIENT: ALIE SALMERON LOC: EN U#:[id number] AGE/SX: 75/F ROOM: RE03/31/[address]: Dr. Alejandro Roy DO : 1950 BED: DIS: 03/31/2025 SPEC #: [id number] RECD: 03/31/25 11:15 STATUS: PATI REMassimo #: [id number] AL[place] DELIA: 03/31/25 09:[address]: Alejandro Roy DEPT: CYTOLOGY RECD BY: Les Boothe ENTERED: 03/31/25 12:03 SP TYPE: Fluid OTHR DR: Dr. Radha Rodas DO Tissues: A - Biliary tract, NOS Procedures: Special Stain Group II Surgery Specimen Level IV Cytospin Fluid HEADER OPERATION: ERCP, sphincterotomy, biliary brushings, balloon cholangiogram PRE-OP DIAGNOSIS: Choledochocyst TISSUE SUBMITTED: A- Biliary brush tip and brushings DIAGNOSIS CYTOLOGY A. Biliary brush tip and brushings, ERCP (cytospin, cellblock, smear x3): - No malignant cells identified. CYTOLOGY STUDY Slides are reviewed. CYTOLOGY GROSS A. Received is 1 brush tip with <0.5 ml of light-yellow fluid and 3 slides labeled with the patient's name and and designated per the requisition as Biliary brush tip and brushings. Submitted for cytology and cell block preparation. 03/31/2025 CPT: 65534,[id number]
--- NOTE | 2025-03-31 09:10 | PRE.ANES_ITS ---
ASA Classification* ASA Classification ASA Classification: 2 Assessment & Plan Anesthesia* Anesthesia Assessment Anesthesia Assessment: Discussed sedation and/or anesthesia options, risks, benefits, and alternatives with patient/parents/legal guardian/POA. Questions invited. The patient/parents/legal guardian/POA seems to understand and agrees to proceed with anesthesia plan. Reviewed the physical assessment, medical history, allergy history and patient home medications list prior to surgery/procedure/anesthetic and documented any changes. Performed airway and anesthesia risk assessments. Anesthesia Type Anesthesia Type: General History Source History Obtained from:: Patient and Chart Anesthesia Focused Assessment* Temperature: 97.9 F Pulse Rate: 49 Blood Pressure: 132/78 Respiratory Rate: 16 Pulse Ox: 100 Oxygen Delivery Method: Room Air Airway Assessment Mouth opens: >3 cm Mallampati Score: III Teeth Condition: Caps/Crowns (Patient has several crowns. They are tight.) Neck Range of motion (ROM): Limited ROM (Somewhat Decreased) Labs Anesthesia Preop lab: CBC WBC, (4.4-11.0) 4.2 K/mm3 L 02/03/25, 08:17 RBC, (4.2-5.4) 4.37 M/mm3 02/03/25, 08:17 Hgb, (12.0-15.0) 12.8 g/dL 02/03/25, 08:17 Hct, (37-47) 38.2 % 02/03/25, 08:17 Plt Count, (150-450) 200 K/mm3 02/03/25, 08:17 CHEMISTRY Potassium, (3.3-5.1) 4.4 mmol/L 02/03/25, 08:17 Sodium, (133-145) 142 mmol/L 02/03/25, 08:17 Magnesium, (1.6-2.6) 2.3 mg/dL 02/13/22, 16:13 BUN, (4-19) 21 mg/dL H 02/03/25, 08:17 Creatinine, (0.70-1.20) 0.75 mg/dL 02/03/25, 08:17 Glucose, (70-99) 82 mg/dL 02/03/25, 08:17 TSH, (0.358-3.740) 3.540 uIU/mL 05/18/24, 06:11 COAG Pre-Assessment Diagnosis/Proposed Procedure Planned Operative Procedure(s): ERCP Anesthesia History Anesthesia History - human resources safety manager: Anesthesia History - human resources safety manager Hx Hospitalization No 03/29/25 12:54 Any Problems With Anesthesia No 03/29/25 12:54 Cholinesterase deficiency No 03/29/25 12:54 You/Your Family Experience No 03/29/25 12:54 fever (hyperthermia) with Relationship Recent Exposure to Contagious No 03/31/25 08:15 Disease Does patient have nerve No 03/29/25 12:54 stimulator Patient instructed to have device shut off --Does patient have Pacemaker No 03/31/25 08:15 or ICD? When Was Last Pacemaker Check QUESTION #4 FULL TEXT: You/Your Family Experience fever (hyperthermia) with Anesthesia Last Oral Intake Last Oral intake: Last Oral Intake NPO since 08:00 03/31/25 08:15 Meds taken in AM with sips of No 03/31/25 08:15 water? Meds patient instructed to take am of surgery Any additional information?: Yes NPO since: 08:00 (Patient is drinking water up till 8 AM.) Meds taken in AM with sips of water?: No PONV PONV - human resources safety manager: PONV - human resources safety manager Female Yes 03/29/25 12:54 HX of Motion Sickness Yes 03/29/25 12:54 HX of N/V After Surgery No 03/29/25 12:54 Non-Smoker Yes 03/29/25 12:54 Duration of Surgery greater Yes 03/29/25 12:54 than 60 minutes Number of Risk Factors 4 03/29/25 12:54 PONV Score Severe Risk 03/29/25 12:54 Height & Weight Height & Weight: Anesthesia: Height & Weight Height 5 ft 2 in 03/31/25 08:15 Weight: 57 kg 03/31/25 08:15 Body Mass Index (BMI) 22.9 03/31/25 08:15 Respiratory Assessment Respiratory Assessment - human resources safety manager: Respiratory Tract Infection Hx - human resources safety manager Hx Respiratory Tract Infection No 03/29/25 12:54 STOP Sleep Apnea STOP Sleep Apnea - human resources safety manager: STOP Sleep Apnea - human resources safety manager Hx Hypertension No 03/29/25 12:54 Hx Sleep Apnea No 03/29/25 12:54 CPAP No 11/17/24 07:07 BIPAP No 11/15/24 13:17 Do you snore loudly (louder No 03/29/25 12:54 than talking or can be heard Do you often feel tired/ No 03/29/25 12:54 fatigued/ sleepy during daytime? Has anyone observed you stop No 03/29/25 12:54 breathing during sleep? STOP Results Negative 03/29/25 12:54 QUESTION #5 FULL TEXT : Do you snore loudly (louder than talking or can be heard through closed doors)? Tobacco Use History Tobacco Use History - human resources safety manager: Tobacco Use History - human resources safety manager Tobacco Use Smoking Status Never smoker 03/29/25 12:54 Hx Tobacco Use No 03/29/25 12:54 Years Smoking Packs Smoked per Day Smoking Cessation Date was within the last 15 years Hx Smoking Cessation Date Hx Smoking Cessation Counseling Hematologic Medial History Hematologic Hx - human resources safety manager: Hematologic Medical Hx - silo tender Hx of Blood Transfusion No 03/29/25 12:54 Hx of Transfusion in last 3 No 03/29/25 12:54 Months Date of Last Transfusion (if within last 3 months) Ever experience any problems No 03/29/25 12:54 with transfusion(s)? Specify any problems Hx of Preganancy in last 3 No 03/29/25 12:54 Months Nurse Filling Out Transfusion DSCHRIBER 03/29/25 12:54 & Questions: Date: 03/29/25 03/29/25 12:54 Time: 12:55 03/29/25 12:54 Patient unable to answer at this time (ie. confused, unrespo /Reproduction History /Reproductive History - human resources safety manager: /Reproductive Hx- human resources safety manager Hx Now No 03/29/25 12:54 Gestational Age (in weeks): EDC: Hx Hx Para Hx Section SAB No 03/29/25 12:54 Active Medications Active Medications: Current Medications Generic Name Dose Route Start Last Admin Trade Name Freq PRN Reason Stop Dose Admin Lactated Ringer's 1,000 mls @ 15 mls/hr 03/31/25 08:15 03/31/25 08:23 IV 15 mls/hr .Q48H BENITA Administration PFSH Medical History Loss of hearing Protein intolerance History of steroid therapy Fatty liver Vomiting Heartburn Leg cramps Wears glasses Post-menopausal Alcohol use Arthritis Injury of head and neck Loss of consciousness Non-smoker Home Medications ?Medication ?Instructions ?Recorded ?Last Taken ?Type polyethylene glycol 3350 17 4 g PO QDAY PRN constipati on 02/10/25 Unknown History gram/dose oral powder (Miralax) budesonide 3 mg 6 mg (2 x 3 mg) PO QDAY #60 ea 02/16/25 03/30/25 Rx capsule,delayed,extended release Allergy/AdvReac Type Severity Reaction Status Date / Time Penicillins Allergy Hives Verified 03/31/25 08:10 Family History Mother Hypertension CVA (cerebral vascular accident) Father Hypertension Prostate cancer Surgical History Hx of colonoscopy History of esophagogastroduodenoscopy (EGD) Hx of appendectomy Social History Smoking Status: Never smoker alcohol intake: current alcohol intake frequency: holidays/special occasions only substance use type: does not use what type of physical activity do you participate in: walking and bicycling Review of Systems (Anesthesia) ROS Narrative System reviewed and no additional complaints, except as documented.
--- NOTE | 2025-03-31 09:12 | PCM.HP.STD ---
HPI - General General Date of Admission: 03/31/25 Date of Service: 03/31/25 HPI Narrative HPI Details: ALIE SALMERON, is a 74 F who presents to the office today for follow up. *I established 2.3 pt reports that for the last several years she has been having random episodes of vomiting 4 hours after she has eaten certain foods. pt reports that she has had scopes and a GET, has seen a few gastroenterologists and allergists, and hasn't found a answer for her symptoms. She provided a detailed synopsis over the last 10 years of which she has been experiencing. This started back in August 2013 where she had a first episode of nausea and vomiting after eating sánchez. Patient said she did not keep a record of each episode but she did notice that after the lamp incident she also the same incident with fish, pepitas, black beans, pecans and walnuts. The same year in April 2014 she underwent imaging by her PCP at [facility] that showed a large amount of stool and delayed gastric emptying on a gastric emptying study. From 2013 and 2021 she had random bouts of vomiting probably eating types of foods such as, chickpeas, fish, pepitas, black beans, pecans and walnuts. Her treatment up until 2021 was food avoidance. In July 2021 she had saw an trust manager assistant at previous clinic and was diagnosed with food protein induced enterocolitis syndrome. Treatment was recommended In May 2024 she had breast spinach salad and had the same reaction. Up until that time avoiding those other foods that cause the problem was successful. However because of this new episode she came in for consultation. Referred to hematology for elevated IgG levels US and elastography 09.06.24 hepatic measurement 17cm with fatty infiltration, stiffness measures 6.8kPa OV 5 pt reports that she has not eaten any foods that have caused an episode, but states that she is feeling discouraged with not having any answers or treatment for her symptoms. Pt reports she is having a bm every 2-3 days and takes Miralax as needed. EGD 11.17.24 Normal esophagus. Biopsied. Erythematous mucosa in the gastric body. Biopsied. Erythematous duodenopathy. Biopsied. abd MRI 12.22.24 1. Somewhat motion limited exam. 2. Fusiform dilatation of the common hepatic duct to 10 mm, accounting for the sonographic finding. No abnormal enhancement or nodular soft tissue identified. 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 There is at most trace upstream central intrahepatic biliary ductal dilatation. Clinical follow-up is recommended including GI consultation for management. Correlate with serum bilirubin and consider further evaluation by ERCP, as indicated. 3. Additional description as above. OV 8 pt reports that her desensitization regimen went well, but has not been on any medication for December and has had a few episodes after having spinach and pumpkin seeds. Pt reports that she is tired and discouraged with how she is feeling. PFSH Medical History Loss of hearing Protein intolerance History of steroid therapy Fatty liver Vomiting Heartburn Leg cramps Wears glasses Post-menopausal Alcohol use Arthritis Injury of head and neck Loss of consciousness Non-smoker Home Medications ?Medication ?Instructions ?Recorded ?Last Taken ?Type polyethylene glycol 3350 17 4 g PO QDAY PRN constipation 02/10/25 Unknown History gram/dose oral powder (Miralax) budesonide 3 mg 6 mg (2 x 3 mg) PO QDAY #60 ea 02/16/25 03/30/25 Rx capsule,delayed,extended release Allergy/AdvReac Type Severity Reaction Status Date / Time Penicillins Allergy Hives Verified 03/31/25 08:10 Family History Mother Hypertension CVA (cerebral vascular accident) Father Hypertension Prostate cancer Surgical History Hx of colonoscopy History of esophagogastroduodenoscopy (EGD) Hx of appendectomy Social History Smoking Status: Never smoker alcohol intake: current alcohol intake frequency: holidays/special occasions only substance use type: does not use what type of physical activity do you participate in: walking and bicycling Vital Signs Vital Signs Vital Signs: 03/31/25 08:15 03/31/25 08:15 Temperature 97.9 F Temperature Source Temporal Pulse Rate 49 L Respiratory Rate 16 Respiratory Pattern Normal Blood Pressure 132/78 H Blood Pressure Mean 96 Blood Pressure Source Monitor Blood Pressure Position Semi-Fowlers Blood Pressure Location Left Arm Pulse Ox 100 Oxygen Delivery Method Room Air Weight Weight: 125 lb 10.616 oz Body Mass Index (BMI) 22.9 Assessment & Plan Assessment/Plan (1) Choledochocyst: PLAN: Assessment and Plan Assessment and Plan (1) Food allergy: Status: Acute Plan: 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 The diagnosis was confirmed by gastric emptying study. I suspect that she does have gastroparesis but the gastric emptying study was done and she did not have his food substances. At this time I cannot identify any trigger without follow-up and blood test and possibly repeating her gastric emptying study. We would include allergy testing along with some autoimmune testing for diseases such as Sjogren syndrome to see if there are any disease processes that would contribute to her developing idiopathic gastroparesis not associated with diabetes. And electrogastrography, by gastric endoscopy/histology, and finally by allergy tests. (2) Transaminitis: Status: Acute Plan: COMP METABOLIC GLU 92 70-99 mg/dL BUN 17 4-19 mg/dL CREAT,SERUM 0.73 0.70-1.20 mg/dL eGFR 86 >60 mL/min/1.73m2 CKD-EPI Creatinine Equation (2020) BUN/CRE 23.1 H 10-20 RATIO T PROT 7.5 5.9-8.4 g/dL ALB 4.5 3.4-4.8 g/dL GLOB 3.1 2.2-4.2 g/dL A/G 1.5 0.9-2.4 RATIO Calcium 9.6 7.6-11.0 mg/dL AST 42 H <=31 U/L ALK PHOS 67 35-104 U/L ALT 36 H <=34 U/L T BILI 0.43 0.00-1.30 mg/dL NA 139 133-145 mmol/L Potassium 3.9 3.3-5.1 mmol/L CL 104 98-108 mmol/L CO2 25.7 21.0-32.0 mmol/L GAP 9 5-15 C-REACTIVE PROT < 3.00 0.0-3.0 mg/L Vitamin B12 660 180-914 pg/mL Grayscale and color Doppler imaging of the right upper quadrant was performed. [facility] S-shear wave elastography was performed for non-invasive assessment of liver tissue stiffness. FINDINGS: Liver: Borderline slightly echogenic. 17.0 cm in length. Gallbladder: Suspected layering sludge. No visualized stones, wall thickening or pericholecystic fluid. Reportedly, sonographic Lewis's was negative. Biliary tree: A cystic area associated with the CBD measures 1.0 x 1.5 x 0.9 cm. Upstream CBD measures 3 mm. Pancreas: Partially obscured by shadowing bowel gas, grossly unremarkable as visualized. Right kidney: Unremarkable. 10.9 cm in length. Other: No visualized free fluid. Hepatic elastography: Number of measurements: Total of 15 measurements obtained in 3 regions, 5 measurements per region. US probe: CA1-7A. EQI median: 6.8 kPa EQI median velocity: 1.5 m/s IQR/Med: 12.2-22.2% (kPa) and 6.2-10.8% (m/s). If the IQR/Med is IQR/median >30% (for kPa) or >15% in m/s, the variance in the measurements is a large and the accuracy of the measurement may be in question. US/ABD Limited w/ Elastography IMPRESSION: 1. Borderline slightly echogenic appearance of the liver which can be seen in early/mild medical liver disease such as steatosis. Correlate with clinical and laboratory evaluation. 2. Liver stiffness is 6.8 kPa. Per the below 2020 SRU criteria, this rules out compensated advanced chronic liver disease in the absence of other known clinical signs. If there are known clinical signs, further testing may be needed for confirmation. 3. 1.5 cm cystic focus associated with the CBD, unclear if this reflects fusiform dilatation of the CBD or a true cystic lesion. Upstream CBD appears normal in caliber. Choledochal cyst is within the differential. Recommend MRI abdomen with and without contrast, and with MRCP. The differential diagnosis for mildly elevated transaminitis over 10-year period only 1 times greater than upper limit of normal is lean Sapp as her BMI is 25. Also logical diagnosis would be muscle enzyme increase secondary to medications or underlying muscle inflammatory disease. Recommend vitamin E 400-800 national units. Repeat FibroScan in a year. Ultrasound also shows a 1.5 cm possible cystic focus associated with the CBD which would be a type I choledochal cyst versus just a fusiform dilation of the CBD. We will get an MRI with and without contrast. 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 She will take cetirizine 10 mg p.o. daily plus prednisone 20 mg and famotidine 20 mg for a week. The next week she will only take the prednisone and famotidine and then after that she will only take prednisone for the next week and stop all medications to the fourth week. She will call and give us an update to see how the medication recommendations are working. After that she will try it with tree nuts. This regimen was effective when she was on the regimen. However I did not want to continue oral prednisone for a long time. She underwent upper endoscopy had biopsies of the small bowel to reveal intraepithelial lymphocytes consistent with food sensitivity. I will put her on budesonide 3 mg a day and have her take MiraLAX on a once a day basis. We also discussed the possibility of her going on an antibiotic for 2 months followed by a probiotic and digestive enzymes with meals. We will have her follow-up in 4 months after she completes the budesonide therapy. Episodic vomiting with specific foods vs. FPIES vs. 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 While this is a recognized presentation, the onset in a 74-year-old is atypical, as FPIES is most commonly a pediatric condition. The pattern of delayed reactions to specific, unrelated food proteins supports the FPIES diagnosis, which is based primarily on clinical history. 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 Bile stasis and biliary issues caused by a choledochal cyst can lead to nausea, vomiting, and abdominal pain, symptoms that overlap with her reported episodes. It is possible that the food triggers are exacerbating symptoms related to her biliary anomaly, or the two conditions are unrelated. The 10 mm diameter of the common duct is above the threshold often used to define dilatation (7 mm). Further investigation is needed to determine the relationship between the biliary anomaly and her symptoms. Discouragement and fatigue from desensitization: The patient's reported fatigue and discouragement likely stem from the rigorous nature of the desensitization regimen for a condition with an unclear diagnosis and mechanism in her case. Desensitization, or systematic desensitization, is primarily a treatment for IgE-mediated allergies or phobias, making its application to a [id number] condition like FPIES potentially less effective and more burdensome, contributing to her emotional distress. Chronic constipation: This may be related to her underlying gastrointestinal issues, dietary restrictions imposed by the food triggers, or the psychological impact of her long-standing condition. It should be managed with standard treatments such as increased fiber, fluids, and potentially laxatives P: Re-evaluation and confirmation of diagnosis: Further imaging:?Consider a endoscopic retrograde cholangiopancreatography for more detailed visualization of the biliary tree and confirmation of the choledochal cyst diagnosis. Allergy/Immunology consultation:?Collaborate with an trust manager assistant to review the FPIES diagnosis and determine the appropriateness of the desensitization regimen, especially given her discouragement. An oral food challenge (OFC) under controlled conditions, if deemed safe, may be considered to confirm or disprove the FPIES diagnosis. Management of episodic vomiting: Symptom control:?Prescribe antiemetic medication to be taken at the onset of symptoms, similar to FPIES emergency protocols. Avoidance vs. reintroduction:?Re-evaluate the desensitization regimen. Based on the new findings, a strict avoidance diet for confirmed triggers may be a more appropriate and less burdensome strategy, with re-evaluation of tolerance at a later date, particularly in the context of her biliary findings. Management of chronic constipation: Dietary changes:?Recommend a high-fiber diet with adequate hydration. Medication:?Suggest an [id number] laxative as needed. Addressing psychosocial factors: Patient education:?Provide thorough education about the new potential diagnosis of a choledochal cyst, explaining how it might contribute to her symptoms and why the desensitization regimen may not be the optimal path forward. Mental health support:?Recommend counseling or a support group to help her cope with the discouragement and fatigue associated with her long-standing, complex medical history. (2) Abdominal pain:
[2025-03-31] MEDS: Lactated Ringers 1,000 ML 999 ML IV ×2 (11:15→12:14)
--- NOTE | 2025-03-31 11:15 | OP.ERCP_ITS ---
Patient Name: Olga Stafford Procedure Date: 03/31/2025 6:46 AM Date of : 1950 Age: 75 Procedure: ERCP Indications: Abdominal pain of suspected biliary origin, Abnormal MRCP, Abnormal abdominal ultrasound, Elevated liver enzymes Providers: Alejandro Roy DO Referring MD: Radha Rodas Medicines: General Anesthesia Patient Profile: This is a 75 year old female. Refer to note in patient chart for documentation of history and physical. Patient has symptoms of chronic right upper quadrant abdominal pain. This patient has no history of previous ERCP. This patient has no history of surgical alteration of the upper digestive tract anatomy. Complications: No immediate complications. Procedure: Pre-Anesthesia Assessment: - Prior to the procedure, a History and Physical was performed, and patient medications and allergies were reviewed. The patient is competent. The risks and benefits of the procedure and the sedation options and risks were discussed with the patient. All questions were answered and informed consent was obtained. Patient identification and proposed procedure were verified by the physician in the pre-procedure area. Mental Status Examination: alert and oriented. Airway Examination: normal oropharyngeal airway and neck mobility. Respiratory Examination: clear to auscultation. CV Examination: normal. ASA Grade Assessment: II - A patient with mild systemic disease. After reviewing the risks and benefits, the patient was deemed in satisfactory condition to undergo the procedure. The anesthesia plan was to use general anesthesia. Immediately prior to administration of medications, the patient was re-assessed for adequacy to receive sedatives. The heart rate, respiratory rate, oxygen saturations, blood pressure, adequacy of pulmonary ventilation, and response to care were monitored throughout the procedure. The physical status of the patient was re-assessed after the procedure. After obtaining informed consent, the scope was passed under direct vision. Throughout the procedure, the patient's blood pressure, pulse, and oxygen saturations were monitored continuously. The Duodenoscope was introduced through the mouth, and advanced to the duodenum and used to inject contrast into the bile duct. The ERCP was accomplished without difficulty. The patient tolerated the procedure well. Scope In: 10:28:39 AM Scope Out: 10:57:24 AM Total Procedure Duration Time 0 hours 28 minutes 45 seconds Findings: The manufacturing millwright film was normal. The esophagus was successfully intubated under direct vision. The scope was advanced to a normal major papilla in the descending duodenum without detailed examination of the pharynx, larynx and associated structures, and upper GI tract. The upper GI tract was grossly normal. A long 0.025 inch Jagwire was passed into the biliary tree. The short-nosed traction sphincterotome was passed over the guidewire and the bile duct was then deeply cannulated. Contrast was injected. I personally interpreted the bile duct images. There was brisk flow of contrast through the ducts. Image quality was adequate. Contrast extended to the entire biliary tree. The entire biliary tree except for the cystic duct and gallbladder and common bile duct contained three stones, the largest of which was 7 mm in diameter. A 5 mm biliary sphincterotomy was made with a traction (standard) sphincterotome using ERBE electrocautery. There was no post-sphincterotomy bleeding. The biliary tree was swept with a 12 mm balloon starting at the upper third of the main bile duct, middle third of the main bile duct, lower third of the main duct, cystic duct, bifurcation, left intrahepatic duct(s) and left main hepatic duct. Sludge was swept from the duct. All stones were removed. Cells for cytology were obtained by brushing in the lower third of the main bile duct. One 10 Fr by 5 cm temporary stent was placed 5 cm into the common bile duct. Bile flowed through the stent. The stent was in good position. Impression: - Choledocholithiasis was found. Complete removal was accomplished by biliary sphincterotomy and balloon extraction. - A biliary sphincterotomy was performed. - The biliary tree was swept. - Cells for cytology obtained in the lower third of the main duct. - One temporary stent was placed into the common bile duct. Procedure Code(s): --- Professional --- 58164, Endoscopic retrograde cholangiopancreatography (ERCP); with placement of endoscopic stent into biliary or pancreatic duct, including pre- and post-dilation and guide wire passage, when performed, including sphincterotomy, when performed, each stent [id number], Endoscopic retrograde cholangiopancreatography (ERCP); with removal of calculi/debris from biliary/pancreatic duct(s) 72916, 26, Endoscopic catheterization of the biliary ductal system, radiological supervision and interpretation CPT copyright 2021 [employer]. All rights reserved. The codes documented in this report are preliminary and upon medical biller coder review may be revised to meet current compliance requirements. Alejandro Roy DO 03/31/2025 11:15:14 AM This report has been signed electronically. Number of Addenda: 0 Note Initiated On: 03/31/2025 6:46 AM
--- NOTE | 2025-03-31 11:16 | OP.PROVAT_ITS ---
03/31/2025 Radha Rodas [address] [facility] [place] [address] [place] [address] Re : ERCP procedure for Olga Stafford Dear Dr. Rodas This procedure was performed on March. My impressions and recommendations are as follows: Impressions : - Choledocholithiasis was found. Complete removal was accomplished by biliary sphincterotomy and balloon extraction. - A biliary sphincterotomy was performed. - The biliary tree was swept. - Cells for cytology obtained in the lower third of the main duct. - One temporary stent was placed into the common bile duct. Recommendations : My findings are described in the full procedure note, which is enclosed. If I can be of further assistance, please feel free to contact me at . Sincerely, Alejandro Roy, 03/31/2025 11:15:14 AM This report has been signed electronically.
--- NOTE | 2025-03-31 11:22 | PCM.POST.ANE ---
Anesthesia: Postop Eval I Current Vital Signs Temperature: 97 F Pulse Rate: 68 Blood Pressure: 104/60 Respiratory Rate: 16 Pulse Ox: 98 Oxygen Delivery Method: Room Air Assessment Airway patent: Yes Spontaneous unlabored respirations: Yes Mental status: Asleep nausea: No Vomiting: No Anesthesia Complication: No Fluid Hydration Crystalloid volume administer (ml): 900 Total IV fluid infused: 900 Progress Note Anesthesia document: Postop Eval 1 completed: Yes
--- NOTE | 2025-03-31 11:44 | PCM.POSTANE2 ---
Anesthesia Postop Eval I Sum Postop Eval Completion status Anesthesia document: Postop Eval 1 completed: Yes Anesthesia Postop Eval I Summary Anesthesia Postop Eval I Summary: Anesthesia Postop Eval I: Assessment Summary Airway patent Yes 03/31/25 11:22 [email or web address] Spontaneous unlabored Yes 03/31/25 11:22 [email or web address] respirations Mental status Asleep 03/31/25 11:22 [email or web address] nausea No 03/31/25 11:22 [email or web address] Vomiting No 03/31/25 11:22 [email or web address] Anesthesia Postop Eval I: Fluid Summary Crystalloid volume administer 900 03/31/25 11:22 [email or web address] (ml) Colloids volume administered ( ml) Blood Product volume administered (ml) Total IV fluid infused 900 03/31/25 11:22 [email or web address] Anesthesia Postop Eval I: Summary Notes Anesthesia Complication No 03/31/25 11:22 [email or web address] Anesthesia Complication Comment: Post-operative progress note Anesthesia: Postop Eval II Evaluation Mental status: Awake and Calm Pain Level: 1 nausea: No Vomiting: No Complications Anesthesia Complication: No
== END 2025-03-31 13:23 | disposition home or self-care (01) ==
LOC: EN 07:57 → AC 07:58
PROVIDERS: PCP Family Medicine; Referring Provider Family Medicine; Visit Provider Internal Medicine Gastroenterology
PROC: (CPT 43260; principal; 2025-03-31 08:40)
DX: K80.50 Calculus of bile duct without cholangitis or cholecystitis without obstruction (principal); Z90.49 Acquired absence of other specified parts of digestive tract; R10.9 Unspecified abdominal pain; Z79.899 Other long term (current) drug therapy; R74.01 Elevation of levels of liver transaminase levels
CPT/HCPCS: 43264; 43274; 74330; 76000; 88108; 88305; 88313; 93005; J2405

== ENCOUNTER 2025-03-31 23:33 | Inpatient (IN) | payer MEDICARE, SELFPAY ==
[2025-03-31 23:34] VITALS: BP 146/80; PULSE 68; RESP 16; TEMP 36.6; O2SAT 96; BMI 24.5
[2025-03-31 23:36] VITALS: BP 148/85; PULSE 70; RESP 13; TEMP 36.7; O2SAT 97
[2025-04-01] VITALS (11 sets, daily range): BP systolic 119–177; BP diastolic 56–89; PULSE 50–83; RESP 16–18; TEMP 36.6–37.1; O2SAT 95–98; BMI 23.8
--- OUTSIDE RECORDS SUMMARY | 2025-04-01 00:07 | XMS RPT_ITS | CCD ---
Author Organization [facility] [place] [facility] Team Providers Care Button Grader Name Role Phone Dr. Radha Rodas Primary Care Provider Dr. Radha Rodas Referring Provider Dr. Meet Oliva Attending Provider [phone] Daniel Dickerson Attending Provider VICKY Osuna Attending Provider Dr. Radha Roads Primary Care Provider Dr. Radha Rodas Referring Provider VICKY Falcon Attending Provider Dr. Radha Rodas Primary Care Provider [phone] Radha Rodas Referring Provider VICKY Falcon Attending Provider Dr. Radha Rodas DO Primary Care Provider [phone] Radha Rodas DO Attending Provider [phone] Radha Rodas DO Referring Provider Dr. Alejandro Roy DO Attending Provider Dr. Alejandro Roy DO Referring Provider Azul Robles Attending Provider [phone] Azul Robles Referring Provider [phone] Dr. Meet Santos MD Attending Provider Dr. Meet Santos MD Referring Provider Dr. Radha Rodas DO Primary Care Provider [phone] Radha Referring Provider Friend DO, Dr. Allen Referring Provider Adrianna DO, Dr. Garcia Primary Care Provider [phone] Adrianna DO, Dr. Garcia Referring Provider Friend DO, Dr. Allen Attending Provider Friend DO, Dr. Allen Other Provider [phone] Danielle CORADO, Dr. Dsouza Attending Provider [phone] Danielle CORADO, Dr. Dsouza Referring Provider [phone] Adrianna DO, Dr. Garcia Primary Care Provider [phone] Friend DO, Dr. Allen Referring Provider Adrianna DO, Dr. Garcia Primary Care Provider [phone] Danielle CORADO, Dr. Dsouza Attending Provider Danielle CORADO, Dr. Dsouza Referring Provider Malys, Radha Primary Care Unavailable Malys, Radha Referring Unavailable Friend, Alejandro Attending Unavailable Friend, Alejandro Consulting Unavailable Friend, Alejandro Attending Unavailable Malys, Radha Referring Unavailable Malys, Radha Primary Care Unavailable Friend, Alejandro Referring Unavailable Prah, Meet Attending Unavailable Malys, Radha Primary Care Unavailable Malys, Radha Referring Unavailable Prah, Meet Attending Unavailable Malys, Radha Primary Care Unavailable Friend, Alejandro Attending Unavailable Malys, Radha Referring Unavailable Malys, Radha Primary Care Unavailable Malys, Radha Referring Unavailable Prah, Meet Attending Unavailable Malys, Radha Primary Care Unavailable Malys, Radha Referring Unavailable Friend, Alejandro Attending Unavailable Malys, Radha Referring Unavailable Malys, Radha Primary Care Unavailable Friend, Alejandro Attending Unavailable Georges, Loretta Consulting Unavailable Friend, Alejandro Referring Unavailable Malys, Radha Primary Care Unavailable Friend, Alejandro Attending Unavailable Georges, Loretta Referring Unavailable Georges, Loretta Attending Unavailable Malys, Radha Primary Care Unavailable Prah, Meet Attending Unavailable PrahMeet Referring Unavailable Malys, Radha Primary Care Unavailable Atanasov, Azul Referring Unavailable Atanasov, Azul Attending Unavailable Malys, Radha Primary Care Unavailable Malys, Radha Referring Unavailable FriendAlejandro Attending Unavailable FriendAlejandro Attending Unavailable Friend, Alejandro Referring Unavailable Malys, Radha Primary Care Unavailable Malys, Radha Primary Care Unavailable Danielle, Meet Attending Unavailable Danielle, Meet Referring Unavailable Malys, Radha Referring Unavailable Malys, Radha Attending Unavailable Malys, Radha Primary Care Unavailable Malys, Radha Primary Care Unavailable Friend, Alejandro Attending Unavailable Friend, Alejandro Referring Unavailable Malys, Radha Primary Care Unavailable Pra, Meet Attending Unavailable Praolivia, Mete Referring Unavailable Allergies Allergy Classification Reported Allergen(s) Allergy Type Date of Onset Reaction(s) Facility (15 sources) Penicillins; Translations: [Penicillins] Allergy to substance 04-13-2021 [place] Medications Current Medications Medication Drug Class(es) Dates Sig (Normalized) Sig (Original) polyethylene glycol 3350 10021 mg powder for oral solution (8 sources) Osmotic Laxative Start: 02-10-2025 Polyethylene Glycol 3350 (Miralax) 17 gram/dose powder Active 4 g PO daily February 10, 2025 12:00am Start: 07-05-2024 End: 11-15-2024 Polyethylene Glycol 3350 (Mi ralax) 17 gram/dose powder Discontinued 4 g PO daily as needed for constipation July 05, 2024 1:00am November 15, 2024 1:11pm Ikvonvk-Ixge-Zzxso-Oreg-Capr yl (6 sources) Start: 01-28-2022 Picivyz-Gqsh-Ufxhm-Oreg-Capr yl Active CAP PO January 27, 2022 11:00pm Start: 01-28-2022 Nmlinra-Nhzc-J zwja-Loeu-Qmwmbg Active CAP PO January 28, 2022 12:00am Completed/Discontinued Medications Medication Drug Class(es) Dates Sig (Normalized) Sig (Original) acetaminophen 325 mg / oxyCODONE hydrochloride 5 mg oral tablet (20 sources) Opioid Agonist Start: 10-25-2013 End: 08-15-2017 Oxycodone-Acetamino phen 1 TABLET tablet Discontinued 1 {tbl} PO EVERY 4 HOURS NEEDED as needed for Pain 30 0 October 26, 2013 11:43am August 15, 2017 8:47am Start: 10-25-2013 End: 08-15-2017 take 1 tablet by mouth every four hours as needed Oxycodone-Acetaminophen Discontinued 1 TABLET PO EVERY 4 HOURS NEEDED October 26, 2013 10:43am August 15, 2017 7:47am cetirizine hydrochloride 10 mg oral tablet (4 sources) Histamine-1 Receptor Antagonist Start: 10-18-2024 End: 01-27-2025 take 1 tablet by mouth once daily Cetirizine 10 mg tablet Discontinued 10 mg PO daily 30 October 18, 2024 12:00am January 27, 2025 3:13pm ciprofloxacin 500 mg oral tablet (20 sources) Quinolone Antimicrobial Start: 03-02-2022 End: 03-07-2022 take 1 tablet by mouth twice daily Ciprofloxacin Hcl (Cipro) 500 mg tablet Discontinued 500 mg PO TWICE A DAY 10 5 0 March 02, 2022 12:00am March 06, 2022 12:00am March 07, 2022 12:03am Urinary tract infection Acute cystitis without hematuria Start: 12-25-2018 End: 12-31-2018 take 1 tablet by mouth twice daily Ciprofloxacin Hcl (Cipro) 500 mg tablet Discontinued 500 mg PO TWICE A DAY 10 5 0 December 25, 2018 12:00am December 29, 2018 12:00am December 31, 2018 12:08am Cystitis, unspecified without hematuria diphenhydrAMINE hydrochloride 25 mg oral capsule (4 sources) Histamine-1 Receptor Antagonist Start: 11-15-2024 End: 01-27-2025 take 1 capsule by mouth at bedtime Diphenhydramine Hcl (Aler-Cap) 25 mg capsule Discontinued 25 mg PO AT BEDTIME November 15, 2024 12:00am January 27, 2025 3:13pm famotidine 20 mg oral tablet (4 sources) Histamine-2 Receptor Antagonist Start: 10-18-2024 End: 11-15-2024 take 1 tablet by mouth once daily Famotidine 20 mg tablet Discontinued 20 mg PO daily 30 October 18, 2024 12:00am November 15, 2024 1:10pm ibuprofen 200 mg oral capsule (14 sources) Nonsteroidal Anti-inflammatory Drug Start: 08-15-2017 End: 08-18-2017 Ibuprofen 200 mg capsule Discontinued PO 0 August 15, 2017 12:00am August 18, 2017 10:50am Start: 08-15-2017 End: 08-18-2017 Ibuprofen Discontinued PO [facility] 2017 11:00pm August 18, 2017 9:50am L.Acidoph,Saliva-B.Bif-S.The rm (Acidophilus Probiotic Blend) 175 mg capsule (7 sources) Start: 08-26-2024 End: 11-15-2024 take 1 capsule by mouth once daily L.Acidoph,Saliva-B.Bif-S.Therm (Acidophilus Probiotic Blend) 175 mg capsule Discontinued 1 NMA PO daily August 26, 2024 12:00am November 15, 2024 1:10pm Start: 08-26-2024 take 1 capsule by mouth once daily L.Acidoph,Saliva-B.Bif-S.Therm (Acidophi niyah Probiotic Blend) 175 mg capsule Active 1 NMA PO daily August 26, 2024 12:00am Zo-Nu-Ziqn-Fa-Ca Carb-Vit K (Women's Multivitamin) 18 mg iron-400 mcg-500 mg tablet (14 sources) Start: 03-25-2019 End: 11-15-2024 Ot-Mb-Xcux-Fa-Ca Carb-Vit K (Women's Multivitamin) 18 mg iron-400 mcg-500 mg tablet Discontinued 1 {tbl} PO DAILY March 25, 2019 12:00am November 15, 2024 1:11pm Start: 03-25-2019 Ug-Pj-Spuq-Fa- Ca Carb-Vit K (Women's Multivitamin) 18 mg iron-400 mcg-500 mg tablet Active 1 {tbl} PO DAILY March 25, 2019 12:00am Start: 03-25-2019 take 1 tablet by zulma once daily Lu-Si-Vihw-Fa-Ca Carb-Vit K (Women's Multivitamin) 18 mg iron-400 mcg-500 mg tablet Active 1 TABLET PO DAILY March 24, 2019 11:00pm Start: 03-25-2019 take 1 tablet by zulma th once daily Qx-Nx-Dfwx-Fa-Ca Carb-Vit K (Women's Multivitamin) 18 mg iron-400 mcg-500 mg tablet Active 1 TABLET PO DAILY March 25, 2019 12:00am nitrofurantoin, macrocrystals 25 mg / nitrofurantoin, monohydrate 75 mg oral capsule (20 sources) Nitrofuran Antibacterial Start: 01-30-2024 End: 02-06-2024 take 1 capsule by mouth every twelve hours at mealtime Nitrofurantoin Monohyd/M-Cryst 100 mg capsule Discontinued 1 NMA PO Q12H 14 7 0 January 30, 2024 12:00am February 05, 2024 12:00am February 06, 2024 12:04am administer with a meal/food; swallow whole; do not open, crush, dissolve , or chew Start: 08-18-2017 End: 08-25-2017 take 1 capsule by mouth every twelve hours at mealtime Nitrofurantoin Monohyd/M-Cryst 100 mg capsule Discontinued 1 NMA PO Q12H 14 7 0 August 18, 2017 12:00am August 24, 2017 12:00am August 25, 2017 12:06am Urinary tract infection, site not specified administer with a meal/food; swallow whole; do not open, crush, dissolve , or chew Acworth-3 Fatty Acids 1,000 mg capsule (7 sources) Start: 08-26-2024 End: 11-15-2024 take 1 capsule by mouth once daily Acworth-3 Fatty Acids 1,000 mg capsule Discontinued 1000 mg PO daily August 26, 2024 12:00am November 15, 2024 1:11pm Start: 08-26-2024 take 1 capsule by mouth once d aily Acworth-3 Fatty Acids 1,000 mg capsule Active 1000 mg PO daily August 26, 2024 12:00am phenazopyridine hydrochloride 95 mg oral tablet (14 sources) Start: 08-18-2017 End: 03-25-2019 take 1 tablet by mouth once Phenazopyridine (Azo Urinary Pain Relief) 95 mg tablet Discontinued 95 mg PO ONCE August 18, 2017 12:00am March 25, 2019 9:04am predniSONE 20 mg oral tablet (4 sources) Start: 10-18-2024 End: 11-15-2024 take 1 tablet by mouth once daily Prednisone 20 mg tablet Discontinued 20 mg PO daily October 18, 2024 12:00am November 15, 2024 1:11pm sulfamethoxazole 800 mg / trimethoprim 160 mg oral tablet (7 sources) Dihydrofolate Reductase Inhibitor Antibacterial, Sulfonamide Antimicrobial Start: 02-03-2024 End: 07-05-2024 Sulfamethoxazole-Tri methoprim 800-160 mg tablet Discontinued 1 {tbl} PO TWICE A DAY 10 0 February 03, 2024 12:00am July 05, 2024 10:36am Qzcoyiol-Vhrc-Zzdhe-O reg-Capry 100 mg-150 mg- 50 mg-150 mg capsule (7 sources) Start: 01-28-2022 End: 11-15-2024 Ffslrtfm-Izjo-Fipcd- Oreg-Capry 100 mg-150 mg- 50 mg-150 mg capsule Discontinued NMA PO January 28, 2022 12:00am November 15, 2024 1:11pm Start: 01-28-2022 Turmeric-Ging- Tkflk-Aqhg-Vnsqx 100 mg-150 mg- 50 mg-150 mg capsule Active NMA PO January 28, 2022 12:00am Problems Active Problems Problem Classification Problem Date Documented Da te Episodic/Chronic Abdominal pain (9 sources) Abdominal pain; Translations: [Unspecified abdominal pain] Onset: 03-29-2025 11-17-2024 Episodic Biliary tract disease (1 source) Other specified diseases of biliary tract; Translations: [Other specified diseases of biliary tract] Onset: 12-07-2024 Chronic Disorders of lipid metabolism (1 source) Hyperlipidemia, unspecified; Translations: [Hyperlipidemia, unspecified] Onset: 06-19-2024 Chronic E Codes: Natural/environment (11 sources) Insect bite - wound; Translations: [Bitten or stung by nonvenomous insect and other nonvenomous arthropods, initial encounter] 02-15-2023 Episodic Fever of unknown origin (14 sources) Fever; Translations: [Fever, unspecified] 04-13-2021 Episodic Headache; including migraine (14 sources) Headache; Translations: [Headache] 03-05-2021 Episodic Immunity disorders (19 sources) Hypergammaglobuline espinoza; Translations: [Hypergammaglobulin emia, unspecified] Onset: 02-10-2025 08-26-2024 Chronic Comment on above: Discussed causes of high IgG level including liver disease, infection vs normal variant. Pt understands. Discussed causes of high IgG level including liver disease, infection vs normal variant.IgG level is stable, no M-spikeHas mild elevation, does not meet criteria for Plasma cell dyscrasia. Pt understands. Bone survey is normal. IgG level 1532 on 02/03/2025. Normalized now. Immunizations and screening for infectious disease (20 sources) Contact with and (suspected) exposure to other viral communicable diseases; Translations: [Contact with or suspected exposure to other viral communicable disease] Onset: 02-10-2025 03-05-2021 Episodic Comment on above: Slight elevation, do es not meet criteria for plasma cell dyscrasia. Joint disorders and dislocations; trauma-related (14 sources) Acute meniscal tear, medial; Translations: [Other tear of medial meniscus, current injury, right knee, initial encounter] 08-15-2017 Episodic Nausea and vomiting (2 sources) Vomiting, unspecified; Translations: [Nausea with vomiting, unspecified] Onset: 11-30-2024 Episodic Other bone disease and musculoskeletal deformities (14 sources) Chondromalacia; Translations: [Chondromalacia, unspecified knee] 10-11-2020 Episodic Other connective tissue disease (4 sources) Other bursitis of knee, unspecified knee; Translations: [Pes anserinus tendinitis or bursitis] Episodic Other connective tissue disease (7 sources) Pes anserinus bursitis; Translations: [Other bursitis of knee, unspecified knee] 01-28-2022 Episodic Other gastrointestinal disorders (13 sources) Intolerance to food; Translations: [Malabsorption due to intolerance, not elsewhere classified] 10-18-2024 Chronic Other gastrointestinal disorders (1 source) Malabsorption due to intolerance, not elsewhere classified; Translations: [Malabsorption due to intolerance, not elsewhere classified] Onset: 11-30-2024 Chronic Other injuries and conditions due to external causes (14 sources) Hematoma; Translations: [Other injury of unspecified body region, initial encounter] 10-25-2013 Episodic Other liver diseases (8 sources) Hepatic fibrosis; Translations: [Hepatic fibrosis] 10-21-2024 Chronic Other liver diseases (9 sources) Enzyme level - finding; Translations: [Elevated transaminase measurement] 10-18-2024 Episodic Other screening for suspected conditions (not mental disorders or infectious disease) (1 source) Encounter for screening mammogram for malignant neoplasm of breast; Translations: [Encounter for screening mammogram for malignant neoplasm of breast] Onset: 03-29-2025 Episodic Other upper respiratory infections (14 sources) Acute upper respiratory infection; Translations: [Acute upper respiratory infection, unspecified] 03-05-2021 Episodic Residual codes; unclassified (14 sources) Chill; Translations: [Chills (without fever)] 03-05-2021 Episodic Unclassified (14 sources) Age more than 65 years; Translations: [Over 65 years old] 04-16-2021 Unclassified (2 sources) Hepatic fibrosis, unspecified; Translations: [Hepatic fibrosis, unspecified] Onset: 10-21-2024 Urinary tract infections (20 sources) Urinary tract infectious disease; Translations: [Urinary tract infection, site not specified] Episodic Viral infection (14 sources) Disease caused by 2019-nCoV; Translations: [COVID-19] 04-13-2021 Episodic Past or Other Problems Problem Classification Problem Date Documented Da te Episodic/Chronic Allergic reactions (20 sources) Allergy to food; Translations: [Allergy to other foods] Onset: 07-20-2024 07-05-2024 Episodic Other connective tissue disease (6 sources) Bursitis of knee; Translations: [Other bursitis of knee, unspecified knee] 01-28-2022 Episodic Results Test Name Value Interpretation Reference Range Facility Oncology Visit Reporton 01-31 Oncology Visit Report [facility] [address] [place] [address]. [place] [address] OFFICE VISIT Date of Service: 02/10/25 1327 MR#: [id number] Acct: [id number] Name: OLGA STAFFORD Rep #: [id number] : 1950 From: Meet Santos MD Age/Sex: 74/F Location: [facility] Status: Signed HPI Subjective Date of Service 02/10/25 Chief Complaint F/u for High IgG level. History of Present Illness 74-year-old woman was found to have high IgG level and referred for further evaluation. She denies weight loss, fever, night sweats or pain. Skeletal survey on 09/08/2024 was negative. Had repeat blood work and comes for follow up. Feels well, still getallergic reaction to certain foods. [facility] Medical History Wears glasses Post-menopausal Alcohol use Arthritis Injury of head and neck Loss of consciousness Non-smoker Knee pain Surgical History History of appendectomy Hx of appendectomy Family History Mother Hypertension CVA (cerebral vascular accident) Father Hypertension Prostate cancer Social History Smoking Status: Never smoker alcohol intake: current alcohol intake frequency: holidays/special occasions only substance use type: does not use what type of physical activity do you participate in: walking and bicycling Intake Vital Signs 10/21/24 14:01 11/17/24 05:55 02/10/25 13:28 Height 5 ft 2 in 5 ft 2 in 5 ft 2 in Weight: 59.506 kg BMI 24.0 BP 113/69 Blood Pressure Location Lt brachial Position Sitting Respiration 18 Pulse 58 L Pulse Source Monitor Temp 98.4 F Temperature Source Temporal Artery Pulse Oximetry (%) 99 Oxygen Delivery Method room air Intake Accompanied by: Self Is patient in pain?: No Allergies Penicillins Allergy (Verified 02/10/25 13:31) Hives Medications ???Medication ???Instructions ???Recorded ???Confirmed ???Type polyethylene glycol 3350 17 4 g PO QDAY 02/10/25 02/10/25 Hist ory gram/dose oral powder (Miralax) Have you fallen [...] Total Protein 8.0 Albumin 4.0 Globulin 4.0 Total Protein (PEP) Vitamin B12 IgG 1644 H IgG Total 1666 H IgG1 1170 H IgG2 102 L IgG3 102 IgA 185 IgM 111 IgE 29 LORENZO M-Fabián Free [place] LC, Quant Free Lambda LC, Quant Free [place]/Lambda Ratio 10/14/24 02/03/25 14:04 08:17 WBC 4.5 4.2 L Hgb 12.8 12.8 Hct 37.4 38.2 Plt Count 174 200 Absolute Neuts (auto) 1.5 L 1.7 L Absolute Lymphs (auto) 2.53 1.95 ESR 5 Sodium 139 142 Potassium 3.9 4.4 Chloride 104 107 Carbon Dioxide 25.7 25.6 BUN 17 21 H Creatinine 0.73 0.75 Glucose 92 82 Calcium 9.6 9.1 Total Bilirubin 0.43 0.32 AST 42 H 32 ALT 36 H 24 Alkaline Phosphatase 67 74 Lactate Dehydrogenase 193 C-React Prot Ext Range < 3.00 Total Protein 7.5 7.0 Albumin 4.5 4.1 Globulin 3.1 3.0 Total Protein (PEP) 6.6 Vitamin B12 660 IgG 1532 IgG Total IgG1 IgG2 IgG3 IgA 168 IgM 102 IgE LORENZO M-Fabián Not Observed Free [place] LC, Quant 43.2 H Free Lambda LC, Quant 46.9 H Free [place]/Lambda Ratio 0.92 Exam Physical Exam Const alert, oriented x3 and no apparent distress Coding Level of Care Code Off vis,est,level 3 Exam Problem Focused Diagnoses 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 Plan: To continue observation. Monitor serum proteins. (2) Hypergammaglobulinemia, unspecified: Status: Resolved Comment: IgG level 1532 on 02/03/2025. Normalized now. Plan: To continue observation. To monitor serum proteins. Plan Details Follow Up: 6 Months Clinical Quality Measures Falls Risk Screening/Assistive Devices Have you fallen in the past year?: No 02/10/25 1420 Date _ (more content not included)... Normal [facility] LORENZO + Protein Elect, Serumon 02-07-2025 Albumin [Mass/Vol] 3.6 g/dL Normal 2.9-4.4 [facility] Comment on above: Order Comment: N Performed By: #### L 3130.0010, L504.2610, L100.0100, L3100.3425, L500.4050 ####[facility] [address] [place], [address] Albumin/Globulin [Mass ratio] 1.3 {ratio} Normal 0.7-1.7 [facility] Comment on above: Order Comment: N Performed By: #### L 3130.0010, L504.2610, L100.0100, L3100.3425, L500.4050 ####[facility] [address] [place], [address] OQRPV-7-JZNZ 0.2 g/dL Normal 0.0-0.4 [facility] Comment on above: Order Comment: N Performed By: #### L 3130.0010, L504.2610, L100.0100, L3100.3425, L500.4050 ####[facility] [address] [place], [address] FLLTB-[id number] 0.6 g/dL Normal 0.4-1.0 [facility] Comment on above: Order Comment: N Performed By: #### L 3130.0010, L504.2610, L100.0100, L3100.3425, L500.4050 ####[facility] [address] [place], [address] BETA GLOBULIN 0.9 g/dL Normal 0.7-1.3 [facility] Comment on above: Order Comment: N Performed By: #### L 3130.0010, L504.2610, L100.0100, L3100.3425, L500.4050 ####[facility] [address] [place], [address] GAMMA GLOBULIN 1.4 g/dL Normal 0.4-1.8 [facility] Comment on above: Order Comment: N Performed By: #### L 3130.0010, L504.2610, L100.0100, L3100.3425, L500.4050 ####[facility] [address] [place], [address] Globulin (S) [Mass/Vol] 3.0 g/dL Normal 2.2-3.9 [facility] Comment on above: Order Comment: N Performed By: #### L 3130.0010, L504.2610, L100.0100, L3100.3425, L500.4050 ####[facility] [address] [place], [address] LORENZO RESULT,S Comment: Normal . [facility] Comment on above: Order Comment: N Result Comment: Pres ence of monoclonal protein is unclear at this time. Suggest repeat in 3 to 6 months if clinically indicated. Performed By: #### L 3130.0010, L504.2610, L100.0100, L3100.3425, L500.4050 ####[facility] [address] [place], [address] IMMUNOGLOB A QN 168 mg/dL Normal 64-422 [facility] Comment on above: Order Comment: N Performed By: #### L 3130.0010, L504.2610, L100.0100, L3100.3425, L500.4050 ####[facility] [address] [place], [address] IMMUNOGLOB G QN 1532 mg/dL Normal 586-1602 [facility] Comment on above: Order Comment: N Performed By: #### L 3130.0010, L504.2610, L100.0100, L3100.3425, L500.4050 ####[facility] [address] [place], [address] IMMUNOGLOB M QN 102 mg/dL Normal 26-217 [facility] Comment on above: Order Comment: N Performed By: #### L 3130.0010, L504.2610, L100.0100, L3100.3425, L500.4050 ####[facility] [address] [place], [address] M-Fabián Not Observed Normal Not Observed [facility] Comment on above: Order Comment: N Performed By: #### L 3130.0010, L504.2610, L100.0100, L3100.3425, L500.4050 ####[facility] [address] [place], [address] NOTE: Comment Normal . [facility] Comment on above: Order Comment: N Result Comment: Prot ein electrophoresis scan will follow via computer, mail, or rn charge delivery. Performed By: #### L 3130.0010, L504.2610, L100.0100, L3100.3425, L500.4050 ####[facility] [address] [place] [id number] Protein [Mass/Vol] 6.6 g/dL Normal 6.0-8.5 [facility] Comment on above: Order Comment: N Performed By: #### L 3130.0010, L504.2610, L100.0100, L3100.3425, L500.4050 ####[facility] [address] [place], [address] [place] Lambda Light Chainson 02-07-2025 FR KAPPA LT CHN 43.2 mg/L Abnormal 3.3-19.4 [facility] Comment on above: Performed By: #### L 3130.0010, L504.2610, L100.0100, L3100.3425, L500.4050 ####[facility] [address] [place], [address] FR LAMBDA LT CH 46.9 mg/L Abnormal 5.7-26.3 [facility] Comment on above: Performed By: #### L 3130.0010, L504.2610, L100.0100, L3100.3425, L500.4050 ####[facility] [facility] [address] [place], [place], [id number] KAPPA/LAMBDA % 0.92 Normal 0.26-1.65 [facility] Comment on above: Result Comment: Perf ormed at: [facility] [address] [id number] Data Entry Supervisor: Cristhian Nath PhD, Phone: [phone] Performed By: #### L 3130.0010, L504.2610, L100.0100, L3100.3425, L500.4050 ####[facility] [address] [place], [place], [id number] Absolute lymphocyte countOrd ered By: Meet Santos on 02-03-2025 Lymphocytes Auto (Unsp spec) [#/Vol] 1.95 10*3/uL 0.83-4.51 [facility] Absolute neutrophil countOrd ered By: Meet Santos on 02-03-2025 Neutrophils (Bld) [#/Vol] 1.7 10*3/uL Low 2.0-7.7 [facility] Albumin Elph [Mass/Vol]Order ed By: Meet Santos on 02-03-2025 Albumin [Mass/Vol] 3.6 g/dL 2.9-4.4 [facility] Anion gap in Serum or Plasma Ordered By: Meet Santos on 02-03-2025 Anion gap [Moles/Vol] 9 mmol/L 5-15 [facility] Automated lymphocyte count a s percentage of total leukocytesOrdered By: Meet Santos on 02-03-2025 Lymphocytes/100 WBC Auto (Unsp spec) 47.0 % High 19-41 [facility] BUN/creatinine ratioOrdered By: Meet Santos on 02-03-2025 Urea nitrogen/Creatinine [Mass ratio] 28.0 mg/mg High 10-20 [facility] Basophil percentageOrdered B y: Meet Santos on 02-03-2025 Basophils/100 WBC (Bld) 0.7 % 0-1 [facility] Bilirubin, totalOrdered By: Meet Santos on 02-03-2025 Bilirubin [Mass/Vol] 0.32 mg/dL 0.00-1.30 [facility] CBC W/Diff, Automatedon Absolute Lymph 1.95 X10 3/uL Normal 0.83-4.51 [facility] Comment on above: Performed By: #### L 3130.0010, L504.2610, L100.0100, L3100.3425, L500.4050 ####[facility] [address] [place], [address] Absolute Neut 1.7 X10 3/uL Low 2.0-7.7 [facility] Comment on above: Performed By: #### L 3130.0010, L504.2610, L100.0100, L3100.3425, L500.4050 ####[facility] [address] [place], [address] Basophils/100 WBC (Bld) 0.7 % Normal 0-1 [facility] Comment on above: Performed By: #### L 3130.0010, L504.2610, L100.0100, L3100.3425, L500.4050 ####[facility] [address] [place], [address] Eosinophils/100 WBC (Bld) 1.2 % Normal 0-5 [facility] Comment on above: Performed By: #### L 3130.0010, L504.2610, L100.0100, L3100.3425, L500.4050 ####[facility] [address] [place], [address] Erythrocyte distribution width (RBC) [Ratio] 13.1 % Normal 11.6-14.6 [facility] Comment on above: Performed By: #### L 3130.0010, L504.2610, L100.0100, L3100.3425, L500.4050 ####[facility] [address] [place], [address] Hematocrit (Bld) [Volume fraction] 38.2 % Normal 37-47 [facility] Comment on above: Performed By: #### L 3130.0010, L504.2610, L100.0100, L3100.3425, L500.4050 ####[facility] [address] [place], [address] Hemoglobin (Bld) [Mass/Vol] 12.8 g/dL Normal 12.0-15.0 [facility] Comment on above: Performed By: #### L 3130.0010, L504.2610, L100.0100, L3100.3425, L500.4050 ####[facility] [address] [place], [address] IG% 0.000 Normal 0.0-0.9 [facility] Comment on above: Result Comment: IG% - Immature Granulocytes (promyelocytes, myelocytes and metamyelocytes) > 1% indicates that a LEFT SHIFT is Present. Performed By: #### L 3130.0010, L504.2610, L100.0100, L3100.3425, L500.4050 ####[facility] [address] [place], [address] Lymphocytes/100 WBC (Bld) 47.0 % High 19-41 [facility] Comment on above: Performed By: #### L 3130.0010, L504.2610, L100.0100, L3100.3425, L500.4050 ####[facility] [address] [place], [address] MCH (RBC) [Entitic mass] 29.3 pg Normal 27.0-32.0 [facility] Comment on above: Performed By: #### L 3130.0010, L504.2610, L100.0100, L3100.3425, L500.4050 ####[facility] [address] [place], [address] MCHC (RBC) [Mass/Vol] 33.5 g/dL Normal 32-36 [facility] Comment on above: Performed By: #### L 3130.0010, L504.2610, L100.0100, L3100.3425, L500.4050 ####[facility] [address] [place], [address] MCV (RBC) [Entitic vol] 87.4 fL Normal 81-99 [facility] Comment on above: Performed By: #### L 3130.0010, L504.2610, L100.0100, L3100.3425, L500.4050 ####[facility] [address] [place], [address] Monocytes/100 WBC (Bld) 9.4 % Normal 0-10 [facility] Comment on above: Performed By: #### L 3130.0010, L504.2610, L100.0100, L3100.3425, L500.4050 ####[facility] [address] [place], [address] Neutrophils/100 WBC (Bld) 41.7 % Low 47-70 [facility] Comment on above: Performed By: #### L 3130.0010, L504.2610, L100.0100, L3100.3425, L500.4050 ####[facility] [address] [place], [address] Nucleated RBC (Bld) [#/Vol] 0 10*3/uL Normal 0-5 [facility] Comment on above: Performed By: #### L 3130.0010, L504.2610, L100.0100, L3100.3425, L500.4050 ####[facility] [address] [place], [address] Platelet mean volume (Bld) [Entitic vol] 9.0 fL Normal 6.2-12.0 [facility] Comment on above: Performed By: #### L 3130.0010, L504.2610, L100.0100, L3100.3425, L500.4050 ####[facility] [address] [place], [address] Platelets (Bld) [#/Vol] 200 10*3/uL Normal 150-450 [facility] Comment on above: Performed By: #### L 3130.0010, L504.2610, L100.0100, L3100.3425, L500.4050 ####[facility] [address] [place], [address] RBC (Bld) [#/Vol] 4.37 10*6/uL Normal 4.2-5.4 [facility] Comment on above: Performed By: #### L 3130.0010, L504.2610, L100.0100, L3100.3425, L500.4050 ####[facility] [address] [place], [address] RDW SD 42.1 fl Normal 35.1-43.9 [facility] Comment on above: Performed By: #### L 3130.0010, L504.2610, L100.0100, L3100.3425, L500.4050 ####[facility] [address] [place], [address] WBC (Bld) [#/Vol] 4.2 10*3/uL Low 4.4-11.0 [facility] Comment on above: Performed By: #### L 3130.0010, L504.2610, L100.0100, L3100.3425, L500.4050 ####[facility] [address] [place], [address] Carbon dioxide, total [Moles /volume] in Central venous bloodOrdered By: Meet Santos on 02-03-2025 CO2 [Moles/Vol] 25.6 mmol/L 21.0-32.0 [facility] Chloride assayOrdered By: Sherlyn Santos on 02-03-2025 Chloride [Moles/Vol] 107 mmol/L 98-108 [facility] Comprehensive Metabolic Prof ilon 02-03-2025 Albumin [Mass/Vol] 4.1 g/dL Normal 3.4-4.8 [facility] Comment on above: Performed By: #### L 3130.0010, L504.2610, L100.0100, L3100.3425, L500.4050 ####[facility] [address] [place], [address] Albumin/Globulin [Mass ratio] 1.4 {ratio} Normal 0.9-2.4 [facility] Comment on above: Performed By: #### L 3130.0010, L504.2610, L100.0100, L3100.3425, L500.4050 ####[facility] [address] [place], [address] ALK PHOS 74 U/L Normal 35-104 [facility] Comment on above: Performed By: #### L 3130.0010, L504.2610, L100.0100, L3100.3425, L500.4050 ####[facility] [address] [place], [address] ALT [Catalytic activity/Vol] 24 U/L Normal <=34 [facility] Comment on above: Performed By: #### L 3130.0010, L504.2610, L100.0100, L3100.3425, L500.4050 ####[facility] [address] [place], [address] AST [Catalytic activity/Vol] 32 U/L Normal <=31 [facility] Comment on above: Performed By: #### L 3130.0010, L504.2610, L100.0100, L3100.3425, L500.4050 ####[facility] [address] [place], [address] Bilirubin [Mass/Vol] 0.32 mg/dL Normal 0.00-1.30 [facility] Comment on above: Performed By: #### L 3130.0010, L504.2610, L100.0100, L3100.3425, L500.4050 ####[facility] [address] [place], [address] BUN/CRE 28.0 RATIO High 10-20 [facility] Comment on above: Performed By: #### L 3130.0010, L504.2610, L100.0100, L3100.3425, L500.4050 ####[facility] [address] [place], [address] Calcium [Mass/Vol] 9.1 mg/dL Normal 7.6-11.0 [facility] Comment on above: Performed By: #### L 3130.0010, L504.2610, L100.0100, L3100.3425, L500.4050 ####[facility] [address] [place], [address] Chloride [Moles/Vol] 107 mmol/L Normal 98-108 [facility] Comment on above: Performed By: #### L 3130.0010, L504.2610, L100.0100, L3100.3425, L500.4050 ####[facility] [address] [place], [address] CO2 [Moles/Vol] 25.6 mmol/L Normal 21.0-32.0 [facility] Comment on above: Performed By: #### L 3130.0010, L504.2610, L100.0100, L3100.3425, L500.4050 ####[facility] [address] [place], [address] Creatinine [Mass/Vol] 0.75 mg/dL Normal 0.70-1.20 [facility] Comment on above: Performed By: #### L 3130.0010, L504.2610, L100.0100, L3100.3425, L500.4050 ####[facility] [address] [place], [address] ECRCL 48.06 ml/min Low 50-250 [facility] Comment on above: Performed By: #### L 3130.0010, L504.2610, L100.0100, L3100.3425, L500.4050 ####[facility] [address] [place], [address] GAP 9 Normal 5-15 [facility] Comment on above: Performed By: #### L 3130.0010, L504.2610, L100.0100, L3100.3425, L500.4050 ####[facility] [address] [place], [address] GFR/1.73 sq M.predicted among non-blacks MDRD (S/P/Bld) [Vol rate/Area] 82 mL/min/{1.73_m2} Normal >60 [facility] Comment on above: Result Comment: mL/m in/1.73m2 CKD-EPI Creatinine Equation (2020) Performed By: #### L 3130.0010, L504.2610, L100.0100, L3100.3425, L500.4050 ####[facility] [address] [place], [address] Globulin (S) [Mass/Vol] 2.9 g/dL Normal 2.2-4.2 [facility] Comment on above: Performed By: #### L 3130.0010, L504.2610, L100.0100, L3100.3425, L500.4050 ####[facility] [address] [place], [address] Glucose [Mass/Vol] 82 mg/dL Normal 70-99 [facility] Comment on above: Performed By: #### L 3130.0010, L504.2610, L100.0100, L3100.3425, L500.4050 ####[facility] [address] [place], [address] Potassium [Moles/Vol] 4.4 mmol/L Normal 3.3-5.1 [facility] Comment on above: Performed By: #### L 3130.0010, L504.2610, L100.0100, L3100.3425, L500.4050 ####[facility] [address] [place], [address] Sodium [Moles/Vol] 142 mmol/L Normal 133-145 [facility] Comment on above: Performed By: #### L 3130.0010, L504.2610, L100.0100, L3100.3425, L500.4050 ####[facility] [address] [place], [address] T PROT 7.0 g/dL Normal 5.9-8.4 [facility] Comment on above: Performed By: #### L 3130.0010, L504.2610, L100.0100, L3100.3425, L500.4050 ####[facility] [address] [place], [address] Urea nitrogen [Mass/Vol] 21 mg/dL High 4-19 [facility] Comment on above: Performed By: #### L 3130.0010, L504.2610, L100.0100, L3100.3425, L500.4050 ####[facility] [address] [place], [address] Eosinophil percentageOrdered By: Meet Santos on 02-03-2025 Eosinophils/100 WBC (Bld) 1.2 % 0-5 [facility] Erythrocyte distribution wid th ratioOrdered By: Meet Santos on 02-03-2025 Erythrocyte distribution width (RBC) [Ratio] 13.1 % 11.6-14.6 [facility] Erythrocyte distribution wid th standard deviationOrdered By: Meet Santos on 02-03-2025 Erythrocyte distribution width (RBC) [Ratio] 42.1 fl 35.1-43.9 [facility] Glomerular filtration rate ( GFR) estimation/1.73 sq m using serum, plasma, or whole bOrdered By: Meet Santos on 02-03-2025 GFR/1.73 sq M.predicted among non-blacks MDRD (S/P/Bld) [Vol rate/Area] 82 mL/min/{1.73_m2} >60 [facility] Comment on above: mL/min/1.73m2 CKD-EP I Creatinine Equation (2020) Hematocrit Auto (Bld) [Volum e fraction]Ordered By: Meet Santos on 02-03-2025 Hematocrit (Bld) [Volume fraction] 38.2 % 37-47 [facility] Hemoglobin measurementOrdere d By: Meet Santos on 02-03-2025 Hemoglobin (Bld) [Mass/Vol] 12.8 g/dL 12.0-15.0 [facility] Immature granulocytes/100 WB C Auto (Bld)Ordered By: Meet Santos on 02-03-2025 Immature granulocytes/100 WBC (Bld) 0.000 % 0.0-0.9 [facility] Comment on above: IG% - Immature Granu locytes (promyelocytes, myelocytes and metamyelocytes) > 1% indicates that a LEFT SHIFT is Present. Interpretation of serum or p lasma protein pattern by immunofixation (narrative resultOrdered By: Meet Santos on 02-03-2025 Protein Fractions Immunofixation Issac [Interp] Not Observed g/dL Not Observed [facility] LDHon 02-03-2025 LDH 193 U/L Normal 84-246 [facility] Comment on above: Order Comment: 1 Performed By: #### L 3130.0010, L504.2610, L100.0100, L3100.3425, L500.4050 ####[facility] [address] [place], [address] Laboratory - Chemistry and C hemistry - challengeOrdered By: Meet Santos on 02-03-2025 AST [Catalytic activity/Vol] 32 U/L <32 [facility] Lactate dehydrogenase (LDH) measurementOrdered By: Meet Santos on 02-03-2025 LDH [Catalytic activity/Vol] 193 U/L 84-246 [facility] MCV (mean corpuscular volume ) determinationOrdered By: Meet Santos on 02-03-2025 MCV (RBC) [Entitic vol] 87.4 fL 81-99 [facility] Mean corpuscular hemoglobin (MCH) determinationOrdered By: Meet Santos on 02-03-2025 MCH (RBC) [Entitic mass] 29.3 pg 27.0-32.0 [facility] Mean corpuscular hemoglobin concentration (MCHC) determinationOrdered By: Meet Santos on 02-03-2025 MCHC (RBC) [Mass/Vol] 33.5 g/dL 32-36 [facility] Mean platelet volume determi nationOrdered By: Meet Santos on 02-03-2025 Platelet mean volume (Bld) [Entitic vol] 9.0 fL 6.2-12.0 [facility] Monocyte percentageOrdered B y: Meet Santos on 02-03-2025 Monocytes/100 WBC (Bld) 9.4 % 0-10 [facility] Neutrophil percentageOrdered By: Meet Santos on 02-03-2025 Neutrophils/100 WBC (Bld) 41.7 % Low 47-70 [facility] No Panel InformationOrdered By: Meet Santos on 02-03-2025 Addendum Document Comment . [facility] Comment on above: Protein electrophore sis scan will follow via computer,mail, or rn charge delivery. Nucleated red blood cell per centageOrdered By: Meet Santos on 02-03-2025 Nucleated RBC/100 WBC (Bld) [Ratio] 0 % 0-5 [facility] Platelet countOrdered By: Sherlyn Santos on 02-03-2025 Platelets (Bld) [#/Vol] 200 10*3/uL 150-450 [facility] Potassium measurement (mass/ volume)Ordered By: Meet Santos on 02-03-2025 Potassium (Unsp spec) [Mass/Vol] 4.4 mmol/L 3.3-5.1 [facility] RBC Auto (Bld) [#/Vol]Ordere d By: Meet Santos on 02-03-2025 RBC (Bld) [#/Vol] 4.37 10*6/uL 4.2-5.4 [facility] Serum creatinine measurement (mass/volume)Ordered By: Meet Santos on 02-03-2025 Creatinine [Mass/Vol] 0.75 mg/dL 0.70-1.20 [facility] Serum globulin measurement ( mass/volume)Ordered By: Meet Santos on 02-03-2025 Globulin (S) [Mass/Vol] 3.0 g/dL 2.2-3.9 [facility] Serum glucose measurement (m ass/volume)Ordered By: Meet Santos on 02-03-2025 Glucose [Mass/Vol] 82 mg/dL 70-99 [facility] Serum immunoglobulin kappa l ight chains/immunoglobulin lambda light chains mass ratioOrdered By: Meet [facility] on 02-03-2025 Immunoglobulin light chains.kappa/Immunoglobul in light chains.lambda (S) [Mass ratio] 0.92 0.26-1.65 [facility] Comment on above: Performed at: [place] [id number] Director: Cristhian Nath PhD, Phone: [phone] Serum or plasma IgA measurem ent (mass/volume)Ordered By: Meet Santos on 02-03-2025 IgA [Mass/Vol] 168 mg/dL 64-422 [facility] Serum or plasma IgG measurem ent (mass/volume)Ordered By: Meet Santos on 02-03-2025 IgG [Mass/Vol] 1532 mg/dL [phone] [facility] Serum or plasma alanine hoff otransferase (ALT) measurementOrdered By: Meet Santos on 02-03-2025 ALT [Catalytic activity/Vol] 24 U/L <35 [facility] Serum or plasma albumin benito urement (mass/volume)Ordered By: Meet Santos on 02-03-2025 Albumin [Mass/Vol] 4.1 g/dL 3.4-4.8 [facility] Serum or plasma albumin/glob ulin mass ratioOrdered By: Meet Santos on 02-03-2025 Albumin/Globulin [Mass ratio] 1.4 {ratio} 0.9-2.4 [facility] Serum or plasma alkaline ruiz sphatase measurementOrdered By: Meet Santos on 02-03-2025 ALP [Catalytic activity/Vol] 74 U/L 35-104 [facility] Serum or plasma alpha 1 glob ulin measurement by electrophoresis (mass/volume)Ordered By: Meet Santos on 02-03-2025 Alpha 1 globulin Elph [Mass/Vol] 0.2 g/dL 0.0-0.4 [facility] Alpha 1 globulin Elph [Mass/Vol] 0.6 g/dL 0.4-1.0 [facility] Serum or plasma beta globuli n measurement by electrophoresis (mass/volume)Ordered By: Meet Santos on 02-03-2025 Beta globulin Elph [Mass/Vol] 0.9 g/dL 0.7-1.3 [facility] Serum or plasma calcium benito urement (mass/volume)Ordered By: Meet Santos on 02-03-2025 Calcium [Mass/Vol] 9.1 mg/dL 7.6-11.0 [facility] Serum or plasma gamma globul in measurement by electrophoresis (mass/volume)Ordered By: Meet Santos on 02-03-2025 Gamma globulin Elph [Mass/Vol] 1.4 g/dL 0.4-1.8 [facility] Serum or plasma immunoelectr ophoresis interpretation (nominal result)Ordered By: Meet Santos on 02-03-2025 Interpretation IEP [Interp] Comment: . [facility] Comment on above: Presence of monoclon al protein is unclear at this time. Suggestrepeat in 3 to 6 months if clinically indicated. Serum or plasma immunoglobul in kappa light chains measurement (mass/volume)Ordered By: Meet Santos on 02-03-2025 Immunoglobulin light chains.kappa [Mass/Vol] 43.2 mg/L High 3.3-19.4 [facility] Serum or plasma protein benito urement (mass/volume)Ordered By: Meet Danielle on 02-03-2025 Protein [Mass/Vol] 6.6 g/dL 6.0-8.5 [facility] Serum or plasma urea nitroge n measurement (mass/volume)Ordered By: Meet Danielle on 02-03-2025 Urea nitrogen [Mass/Vol] 21 mg/dL High 4-19 [facility] Sodium levelOrdered By: Ramakrishna Santos on 02-03-2025 Sodium [Moles/Vol] 142 mmol/L 133-145 [facility] Total proteinOrdered By: Kevin Santos on 02-03-2025 Protein [Mass/Vol] 7.0 g/dL 5.9-8.4 [facility] White blood cell (WBC) count Ordered By: Meet Santos on 02-03-2025 WBC (Bld) [#/Vol] 4.2 10*3/uL Low 4.4-11.0 [facility] Gastroenterology Visit Repor ton 01-27-2025 Gastroenterology Visit Report [facility] [address] [place] [address] OFFICE VISIT Date of Service: 01/27/25 MR#: [id number] Acct: [id number] Name: OLGA STAFFORD Rep #: [id number] : 1950 Provider: Alejandro Roy DO Age/Sex: 74/F Location: [facility] Status: Signed with Addenda ADDENDUM by Alejandro Roy DO on 03/11/25 at 1922 HPI Details: OLGA STAFFORD, is a 74 F who presents to the office today for Assessment Plan PLAN: Plan * Episodic vomiting with specific foods vs. FPIES vs. 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 While this is a recognized presentation, the onset in a 74-year-old is atypical, as FPIES is most commonly a pediatric condition. The pattern of delayed reactions to specific, unrelated food proteins supports the FPIES diagnosis, which is based primarily on clinical history. 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 Bile stasis and biliary issues caused by a choledochal cyst can lead to nausea, vomiting, and abdominal pain, symptoms that overlap with her reported episodes. It is possible that the food triggers are exacerbating symptoms related to her biliary anomaly, or the two conditions are unrelated. The 10 mm diameter of the common duct is above the threshold often used to define dilatation (7 mm). Further investigation is needed to determine the relationship between the biliary anomaly and her symptoms. * Discouragement and fatigue from desensitization: The patient's reported fatigue and discouragement likely stem from the rigorous nature of the desensitization regimen for a condition with an unclear diagnosis and mechanism in her case. Desensitization, or systematic desensitization, is primarily a treatment for IgE-mediated allergies or phobias, making its application to a yct-RjY-hsfydshq condition like FPIES potentially less effective and more burdensome, contributing to her emotional distress. * Chronic constipation: This may be related to her underlying gastrointestinal issues, dietary restrictions imposed by the food triggers, or the psychological impact of her long-standing condition. It should be managed with standard treatments such as increased fiber, fluids, and potentially laxatives P: * Re-evaluation and confirmation of diagnosis: * Further imaging:???Consider a endoscopic retrograde cholangiopancreatography for more detailed visualization of the biliary tree and confirmation of the choledochal cyst diagnosis. * Allergy/Immunology consultation:???Collabora te with an decision support analyst to review the FPIES diagnosis and determine the appropriateness of the desensitization regimen, especially given her discouragement. An oral food challenge (OFC) under controlled conditions, if deemed safe, may be considered to confirm or disprove the FPIES diagnosis. * Management of episodic vomiting: * Symptom control:???Prescribe antiemetic medication to be taken at the onset of symptoms, similar to FPIES emergency protocols. * Avoidance vs. reintroduction:???Re-eval uate the desensitization regimen. Based on the new findings, a strict avoidance diet for confirmed triggers may be a more appropriate and less burdensome strategy, with re-evaluation of tolerance at a later date, particularly in the context of her biliary findings. * Management of chronic constipation: * Dietary changes:???Recommend a high-fiber diet with adequate hydration. * Medication:???Suggest an dcja-qxr-gitdzsj laxative as needed. * Addressing psychosocial factors: * Patient education:???Provide thorough education about the new potential diagnosis of a choledochal cyst, explaining how it might contribute to her symptoms and why the desensitization regimen may not be the optimal path forward. * Mental health support:???Recommend counseling or a support group to help her cope with the discouragement and fatigue associated with her long-standing, complex medical history. 03/11/251921 Date Alejandro Roy DO cc: * Signed Intake Vital Signs 08/26/24 15:08 10/18/24 09:32 11/17/24 05:55 Height 5 ft 2 in 5 ft 2 in 5 ft 2 in Intake Visit Reasons: 3 M FU Allergies Penicillins Allergy (Verified 11/17/24 05:55) Hives Have you fallen in the past year?: No PFSH Medical History Wears glasses Post-menopausal Alcohol use Arthritis Injury of head and neck Loss of consciousness Non-smoker Knee pain Surgical History History of appendectomy Hx of dean (more content not included)... Normal [facility] Magnetic resonance imaging r eportOrdered By: Johnathan Stephens on 12-02-2024 Study report [facility] Imaging Services [address], [place] [id number] MRI Abd WITH and W/O Contrast MR#: [id number] Acct: [id number] Name: OLGA STAFFORD Rep #: [id number] : 1950 F 74 From: Margret Stephens MD PCP: Dr. Radha Rodas DO Status: REG CLI Study:MRI Abd WITH and W/O Contrast Date of E xam: 12/01/24 Exam# [id number] Ordering Dr: Mathieu Roy DO PROCEDURE: MRI ABD WITH AND W/O CONTRAST with MRCP, 12/01/2024 REASON FOR EXAM: CBD DILATION TECHNIQUE: Multiplanar multisequence MRI abdomen was performed with and without IV contrast. MRCP also performed including rotating 3D/MIP reconstructions IV contrast: 12 mL Clariscan COMPARISON: 09/06/2024 FINDINGS: Variable overall mild/moderate motion limitation. A few sequences are moderately motion degraded. Note the exam is slightly limited by the lack of a true late arterial phase of postcontrast imaging with initial postcontrast imaging performed in the early arterial phase and subsequent postcontrast imaging performed in the hepatic venous phase. Axial T2 fat-sat was not performed. Liver: Normal background signal characteristics. Suspect a punctate T2 bright 5mm hypoenhancing focus in the RIGHT hepatic dome difficult to further characterize due to the combination of motion and minute size, possible cyst in the absence of known malignancy. Spleen: Unremarkable. Gallbladder/biliary: Unremarkable gallbladder. Fusiform dilatation of the common hepatic duct to 10 mm probably corresponding to the sonographic finding. No associated abnormal enhancement or definite associated nodular soft tissue. There is at most trace upstream central intrahepatic biliary dilatation. CBD top-normal in caliber at 6 mm no filling. Defect to suggest choledocholithiasis. Pancreas: Unremarkable. No ductal dilatation. Adrenals: Unremarkable. Kidneys: Unremarkable. Bowel: Not well evaluated by MRI; no gross bowel dilatation. Colonic stool burden appears high.. Lymph nodes: Prominent but technically nonenlarged periportal nodes.. Vasculature: Atherosclerosis. Minimal ectasia of the aorta to 2.2 x 1.9 cm.. Peritoneum: Unremarkable Bones: Unremarkable. MRI/MRI Abd WITH and W/O Contrast IMPRESSION: 1. Somewhat motion limited exam. 2. Fusiform dilatation of the common hepatic duct to 10 mm, accounting for the sonographic finding. No abnormal enhancement or nodular soft tissue identified. 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 There is at most trace upstream central intrahepatic biliary ductal dilatation. Clinical follow-up is recommended including GI consultation for management. Correlate with serum bilirubin and consider further evaluation by ERCP, as indicated. 3. Additional description as above. Reading Location: [id number] CC: Dr. Radha Rodas DO; Alejandro Roy, ~ Engine Tester: Signed [facility] MRI Abd WITH and W/O Contras ton 12-01-2024 MRI Abd WITH and W/O Contrast [facility] Imaging Services [address] [place], [place] [id number] MRI Abd WITH and W/O Contrast MR#: [id number] Acct: [id number] Name: OLGA STAFFORD Rep #: [id number] : 1950 F 74 From: Johnathan Stephens MD PCP: Dr. Radha Rodas, DO Status: REG CLI Study: MRI Abd WITH and W/O Contrast Date of Exam: Exam# [id number] Ordering Dr: Alejandro Roy DO PROCEDURE: MRI ABD WITH AND W/O CONTRAST with MRCP, 12/01/2024 REASON FOR EXAM: CBD DILATION TECHNIQUE: Multiplanar multisequence MRI abdomen was performed with and without IV contrast. MRCP also performed including rotating 3D/MIP reconstructions IV contrast: 12 mL Clariscan COMPARISON: 09/06/2024 FINDINGS: Variable overall mild/moderate motion limitation. A few sequences are moderately motion degraded. Note the exam is slightly limited by the lack of a true late arterial phase of postcontrast imaging with initial postcontrast imaging performed in the early arterial phase and subsequent postcontrast imaging performed in the hepatic venous phase. Axial T2 fat-sat was not performed. Liver: Normal background signal characteristics. Suspect a punctate T2 bright 5 mm hypoenhancing focus in the RIGHT hepatic dome difficult to further characterize due to the combination of motion and minute size, possible cyst in the absence of known malignancy. Spleen: Unremarkable. Gallbladder/biliary: Unremarkable gallbladder. Fusiform dilatation of the common hepatic duct to 10 mm probably corresponding to the sonographic finding. No associated abnormal enhancement or definite associated nodular soft tissue. There is at most trace upstream central intrahepatic biliary dilatation. CBD top-normal in caliber at 6 mm no filling. Defect to suggest choledocholithiasis. Pancreas: Unremarkable. No ductal dilatation. Adrenals: Unremarkable. Kidneys: Unremarkable. Bowel: Not well evaluated by MRI; no gross bowel dilatation. Colonic stool burden appears high.. Lymph nodes: Prominent but technically nonenlarged periportal nodes.. Vasculature: Atherosclerosis. Minimal ectasia of the aorta to 2.2 x 1.9 cm.. Peritoneum: Unremarkable Bones: Unremarkable. MRI/MRI Abd WITH and W/O Contrast IMPRESSION: 1. Somewhat motion limited exam. 2. Fusiform dilatation of the common hepatic duct to 10 mm, accounting for the sonographic finding. No abnormal enhancement or nodular soft tissue identified. 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 There is at most trace upstream central intrahepatic biliary ductal dilatation. Clinical follow-up is recommended including GI consultation for management. Correlate with serum bilirubin and consider further evaluation by ERCP, as indicated. 3. Additional description as above. Reading Location: [id number] CC: Dr. Radha Rodas DO; Alejandro Roy DO Engine Tester: Signed Normal [facility] EGD Reporton 11-17-2024 EGD Report [facility] Medical Records Department [address] [place] [address] EGD Report MR#: [id number] Acct: [id number] Name: OLGA STAFFORD Rep #: [id number] : 1950 74 From: Alejandro Roy DO PCP: Dr. Radha Rodas DO Status:REG [facility] Patient Name: Olga Stafford Procedure Date: 11/17/2024 6:09 AM Date of : 1950 Age: 74 Procedure: Upper GI endoscopy Indications: Epigastric abdominal pain, Functional Dyspepsia, Failure to respond to medical treatment Providers: Alejandro Roy DO Referring MD: Radha Rodas Medicines: Monitored Anesthesia Care Patient Profile: This is a 74 year old female. Refer to note in patient chart for documentation of history and physical. Patient has symptoms of acute abdominal cramping, acute epigastric abdominal pain, chronic nausea and acute vomiting. Complications: No immediate complications. Procedure: Pre-Anesthesia Assessment: - Prior to the procedure, a History and Physical was performed, and patient medications and allergies were reviewed. The patient is competent. The risks and benefits of the procedure and the sedation options and risks were discussed with the patient. All questions were answered and informed consent was obtained. Patient identification and proposed procedure were verified by the physician in the pre-procedure area. Mental Status Examination: alert and oriented. Airway Examination: normal oropharyngeal airway and neck mobility. Respiratory Examination: clear to auscultation. CV Examination: normal. Prophylactic Antibiotics: The patient does not require prophylactic antibiotics. Prior Anticoagulants: The patient has taken no anticoagulant or antiplatelet agents except for NSAID medication. ASA Grade Assessment: II - A patient with mild systemic disease. After reviewing the risks and benefits, the patient was deemed in satisfactory condition to undergo the procedure. The anesthesia plan was to use monitored anesthesia care (MAC). Immediately prior to administration of medications, the patient was re-assessed for adequacy to receive sedatives. The heart rate, respiratory rate, oxygen saturations, blood pressure, adequacy of pulmonary ventilation, and response to care were monitored throughout the procedure. The physical status of the patient was re-assessed after the procedure. After obtaining informed consent, the endoscope was passed under direct vision. Throughout the procedure, the patient's blood pressure, pulse, and oxygen saturations were monitored continuously. The Endoscope was introduced through the mouth, and advanced to the third part of the duodenum. Small bowel enteroscopy was deemed necessary. The upper GI endoscopy was accomplished without difficulty. The patient tolerated the procedure well. Scope In: 6:58:45 AM Scope Out: 7:03:22 AM Total Procedure Duration Time 0 hours 4 minutes 37 seconds Findings: The examined esophagus was normal. Biopsies were taken with a cold forceps for histology. Verification of patient identification for the specimen was done. Estimated blood loss was minimal. Patchy mildly erythematous mucosa without bleeding was found in the gastric body. Biopsies were taken with a cold forceps for histology. Biopsies were taken with a cold forceps for Helicobacter pylori testing. Verification of patient identification for the specimen was done. Estimated blood loss was minimal. Patchy mildly erythematous mucosa without active bleeding and with no stigmata of bleeding was found in the duodenal bulb. Biopsies were taken with a cold forceps for histology. Verification of patient identification for the specimen was done. Estimated blood loss was minimal. Impression: - Normal esophagus. Biopsied. - Erythematous mucosa in the gastric body. Biopsied. - Erythematous duodenopathy. Biopsied. Recommendation: - Discharge patient to home. - Resume previous diet. - Continue present medications. - Await pathology results. Procedure Code(s): --- Professional --- 54709, Small intestinal endoscopy, enteroscopy beyond second portion of duodenum, not including ileum; with biopsy, single or multiple CPT copyright 2021 [employer]. All rights reserved. The codes documented in this report are preliminary and upon chair frame builder review may be revised to meet current compliance requirements. Alejandro Roy DO 11/17/2024 7:06:53 AM This report has been signed electronically. Number of Addenda: 0 Note Initiated On: 11/17/2024 6:09 AM 11/17/2407 Date Alejandro Roy DO Cosigner Signature: Date (if indicated) CC: Dr. Radha Rodas DO; Alejandro Roy DO Date Dictated: 11/17/24608 Date Transcribed: Engine Tester: TRENT Signed Normal [facility] Immunohistochemical Stainson 11-17-2024 Immunohistochemical Stains Patient Age/Sex Location Account Attending Physician OLGA STAFFORD 74/F EN [id number] Alejandro Roy DO Specimen: [id number] Received: 11/17/24 Status: PATI Garcia Num: [id number] Spec Type: EGD BIOPSY Subm Dr: Alejandro Roy, DO HEADER OPERATION: EGD with biopsy PRE-OP DIAGNOSIS: Food intolerance in adult, food allergy, abdominal pain TISSUE SUBMITTED: A- Duodenum biopsy, B- Gastric body biopsy, C- Random esophagus biopsy MICROSCOPIC DIAGNOSIS A. Duodenum, biopsy: Normal villous architecture with increased Intraepithelial lymphocytes - see note. Note: This pattern of injury is etiologically nonspecific???and the differential diagnosis includes sensitivity to gluten and non-gluten proteins, small intestinal bacterial overgrowth, stasis related changes, infection, protein calorie malnutrition, tropical sprue, and medication injury (NSAIDs, Olmesartan / Benicar, Mycophenolic acid, Idelalisib, for example). If celiac disease is a clinical concern, additional clinical studies, such as tTG-IgA, are recommended. B. Gastric body, biopsy: Oxyntic mucosa with no specific pathologic change. IHC negative for H.pylori organisms. C. Esophagus, random biopsy: Squamous mucosa with no specific pathologic change. Negative for eosinophils. MICROSCOPIC DESCRIPTION Slides are reviewed. GROSS DESCRIPTION A. Received in fixative is one container labeled with the patient's name and designated Duodenum biopsy. The specimen consists of two irregular fragments of light hoyos soft tissue that in aggregate measure 0.4 and 0.6 cm. The specimen is totally submitted in one cassette. B. Received in fixative is one container labeled with the patient's name and designated Gastric body biopsy. The specimen consists of two irregular fragments of light hoyos soft tissue that in aggregate measure 0.4 and 0.7 cm. The specimen is totally submitted in one cassette. C. Received in fixative is one container labeled with the patient's name and designated Random esophagus biopsy. The specimen consists of three irregular fragments of light hoyos soft tissue that in aggregate measure <0.1 to 0.5 cm. The specimen is totally submitted in one cassette. Neto 11/17/2024 CPT:93126i1,21363 Patient Age/Sex Location Account Attending Physician OLGA STAFFORD 74/F EN [id number] Alejandro Roy DO Signed (signature on file) Dr. Inga Pantoja MD 11/23/24 0845 Normal [facility] Comment on above: Performed By: #### P [facility] ####[facility] [id number] [place], [address] MR/POSTOP.ANEon 11-17-2024 MR/POSTOP.[facility] Medical Records Department [address] [place] [address] Anesthesia Postop Eval I 11/17/24 0711 MR#: [id number] Acct: [id number] Name: OLGA STAFFORD Rep #: [id number] : 1950 74 From: Tomasz Hagan PCP: Dr. Radha Rodas, DO Status:REG SDC Y Race: C Location: [place] [address] Anesthesia: Postop Eval I Current Vital Signs Temperature: 97.8 F Pulse Rate: 57 Blood Pressure: 89/54 Respiratory Rate: 16 Pulse Ox: 97 Oxygen Delivery Method: Room Air Assessment Airway patent: Yes Spontaneous unlabored respirations: Yes Mental status: Asleep nausea: No Vomiting: No Anesthesia Complication: No Fluid Hydration Crystalloid volume administer (ml): 300 Total IV fluid infused: 300 Progress Note Anesthesia document: Postop Eval 1 completed: Yes 11/17/2412 Date Tomasz Das Signature: Date CC: Signed Normal [facility] MR/[id number] 11-17-2024 MR/POSTOPAN2 [facility] Medical Records Department [address] [place] [address] Anesthesia Postop Eval II 11/17/24 1009 MR#: [id number] Acct: [id number] Name: OLGA STAFFORD Rep #: [id number] : 1950 74 From: Nadine Matias CRNA PCP: Dr. Radha Rodas, DO Status:DEP [facility] Y Race: C Location: EN Anesthesia Postop Eval I Sum Postop Eval Completion status Anesthesia document: Postop Eval 1 completed: Yes Anesthesia Postop Eval I Summary Anesthesia Postop Eval I Summary: Anesthesia Postop Eval I: Assessment Summary Airway patent Yes 11/17/24 07:12 [email or web address] Spontaneous unlabored Yes 11/17/24 07:12 [email or web address] respirations Mental status Asleep 11/17/24 07:12 [email or web address] nausea No 11/17/24 07:12 [email or web address] Vomiting No 11/17/24 07:12 [email or web address] Anesthesia Postop Eval I: Fluid Summary Crystalloid volume administer 300 11/17/24 07:12 [email or web address] (ml) Colloids volume administered ( ml) Blood Product volume administered (ml) Total IV fluid infused 300 11/17/24 07:12 [email or web address] Anesthesia Postop Eval I: Summary Notes Anesthesia Complication No 11/17/24 07:12 [email or web address] Anesthesia Complication Comment: Post-operative progress note Anesthesia: Postop Eval II Evaluation Mental status: Awake Pain Level: 0 nausea: No Vomiting: No 11/17/24 1010 Date Nadine Matias SIEBEL SOLUTION ARCHITECT Cosigner Signature: Date CC: Signed Normal [facility] Hepatitis B/C Profile VIII10-26-2024 HEPATITIS INTER Normal [facility] Comment on above: Result Comment: TEST RESULTS [...] to indicate HCV infection. TESTING PERFORMED AT [facility]. ORIGINAL REPORT ON FILE IN LAB CONTAINS ADDITIONAL TEST SITE INFORMATION. Performed By: #### L 100.9950, L501.6710, L3100.3425, L101.9900, L3000.0800, L3130.0010, L503.0106, L500.4050, L100.0100 ####[facility] [id number] [place], [address] LORENZO + Protein Elect, Serumon 10-26-2024 PROTEIN,TOTAL Normal [facility] Comment on above: Order Comment: N Result Comment: TEST RESULTS LIMITS LORENZO and PE, Serum Immunoglobulin G, Qn, Serum 1622 High mg/dL 586-1602 Immunoglobulin A, Qn, Serum 172 mg/dL 87-352 Immunoglobulin M, Qn, Serum 106 mg/dL 26-217 Protein, Total 7.2 g/dL 6.0-8.5 Albumin 3.9 g/dL 2.9-4.4 Hwbcf-2-Ahmfufsm 0.2 g/dL 0.0-0.4 Cmgjz-1-Uqmbgbeg 0.6 g/dL 0.4-1.0 Beta Globulin 0.9 g/dL 0.7-1.3 Gamma Globulin 1.6 g/dL 0.4-1.8 M-Fabián Not Observed g/dL Not Observed Globulin, Total 3.3 g/dL 2.2-3.9 A/G Ratio 1.2 0.7-1.7 Immunofixation Result, Serum Comment: Presence of monoclonal protein is unclear at this time. Suggest repeat in 3 to 6 months if clinically indicated. Please note: Protein electrophoresis scan will follow via computer, mail, or rn charge delivery. TESTING PERFORMED AT [facility]. ORIGINAL REPORT ON FILE IN LAB CONTAINS ADDITIONAL TEST SITE INFORMATION. Performed By: #### L 100.9950, L501.6710, L3100.3425, L101.9900, L3000.0800, L3130.0010, L503.0106, L500.4050, L100.0100 ####[facility] [id number] [place], [address] [place] Lambda Light Chainson 10-26-2024 FR KAPPA LT CHN Normal [facility] Comment on above: Result Comment: TEST RESULTS LIMITS Free K+L Lt Chains,Qn,S Free [place] Lt Chains,S 33.3 High mg/L 3.3-19.4 Free Lambda Lt Chains,S 45.0 High mg/L 5.7-26.3 [place]/Lambda Ratio,S 0.96 0.26-1.65 TESTING PERFORMED AT [facility]. ORIGINAL REPORT ON FILE IN LAB CONTAINS ADDITIONAL TEST SITE INFORMATION. Performed By: #### L 100.9950, L501.6710, L3100.3425, L101.9900, L3000.0800, L3130.0010, L503.0106, L500.4050, L100.0100 ####[facility] [id number] [place], [address] Oncology Visit Reporton 10-01 Oncology Visit Report [facility] [place] [facility] [address] [place] [address] OFFICE VISIT Date of Service: 10/21/24 1401 MR#: [id number] Acct: [id number] Name: OLGA STAFFORD Rep #: [id number] : 1950 From: Meet Santos MD Age/Sex: 74/F Location: [facility] Status: Signed HPI Subjective Date of Service 10/21/24 Chief Complaint F/u for High IgG level. History of Present Illness 74-year-old woman was found to have high IgG level and referred for further evaluation. She denies weight loss, fever, night sweats or pain. Had repeat blood work/Skeletal survey and comes for follow up. [facility] Medical History (Updated 10/21/24 @ 17:18 by [...] Hives Medications ???Medication ???Instructions ???Recorded ???Confirmed ???Type rgiqmaql-bum-ddlr-FA-Ca carb-vit K 1 tab PO DAILY 03/25/19 [...] associated wi (more content not included)... Normal [facility] Gastroenterology Visit Repor ton 10-18-2024 Gastroenterology Visit Report [facility] [address] [place] [address] OFFICE VISIT Date of Service: 10/18/24 MR#: [id number] Acct: [id number] Name: OLGA STAFFORD Rep #: [id number] : 1950 Provider: Alejandro Roy DO Age/Sex: 74/F Location: [facility] Status: Signed Intake Vital Signs 01/30/24 06:11 08/26/24 15:08 Height 5 ft 2 in 5 ft 2 in Intake Visit Reasons: 3 M FU Allergies Penicillins Allergy (Verified 08/26/24 15:04) Hives Medications ???Medication ???Instructions ???Recorded ???Confirmed ???Type adagqumr-krx-ikoa-FA-Ca carb-vit K 1 tab PO DAILY 03/25/19 [...] 10/18/24 @ 12:[address] Allen Friend, ) Knee pain Surgical History History of appendectomy [...] office today for follow up. *BGI established 2.3. pt reports that for the last several [...] she underwent imaging by her PCP at [facility] that showed a large amount of stool and delayed gastric emptying on a gastric emptying study. From 2013 and 2021 she had random bouts of vomiting probably eating types of foods such as, chickpeas, fish, pepitas, black beans, pecans and walnuts. Her treatment up until 2021 was food avoidance. In July 2021 she had saw an decision support analyst at previous clinic and was diagnosed with food protein induced enterocolitis syndrome. Treatment was recommended In May 2024 she had breast spinach salad and had the same reaction. Up until that time avoiding those other foods that cause the problem was successful. However because of this new episode she came in for consultation. Referred to hematology for elevated IgG levels US and elastography 4.12.24 hepatic measurement 17cm with fatty infiltration, stiffness [...] Psychiatric: Positive (more content not included)... Normal [facility] Absolute lymphocyte countOrd ered By: Meet Santos on 10-14-2024 Lymphocytes Auto (Unsp spec) [#/Vol] 2.53 10*3/uL 0.83-4.51 [facility] Absolute neutrophil countOrd ered By: Meet Santos on 10-14-2024 Neutrophils (Bld) [#/Vol] 1.5 10*3/uL Low 2.0-7.7 [facility] Albumin Elph [Mass/Vol]Order ed By: Meet Santos on 10-14-2024 Albumin [Mass/Vol] Not Reportable [facility] Anion gap in Serum or Plasma Ordered By: Meet Santos on 10-14-2024 Anion gap [Moles/Vol] 9 mmol/L 5-15 [facility] Automated lymphocyte count a s percentage of total leukocytesOrdered By: Meet Santos on 10-14-2024 Lymphocytes/100 WBC Auto (Unsp spec) 56.3 % High 19-41 [facility] BUN/creatinine ratioOrdered By: Meet Santos on 10-14-2024 Urea nitrogen/Creatinine [Mass ratio] 23.1 mg/mg High 10-20 [facility] Basophil percentageOrdered B y: Meet Santos on 10-14-2024 Basophils/100 WBC (Bld) 1.1 % High 0-1 [facility] Bilirubin, totalOrdered By: Meet Santos on 10-14-2024 Bilirubin [Mass/Vol] 0.43 mg/dL 0.00-1.30 [facility] CBC W/Diff, Automatedon 05-06 06-2024 Absolute Lymph 2.53 X10 3/uL Normal 0.83-4.51 [facility] Comment on above: Performed By: #### L 100.9950, L501.6710, L3100.3425, L101.9900, L3000.0800, L3130.0010, L503.0106, L500.4050, L100.0100 ####[facility] [address] [place], [address] Absolute Neut 1.5 X10 3/uL Low 2.0-7.7 [facility] Comment on above: Performed By: #### L 100.9950, L501.6710, L3100.3425, L101.9900, L3000.0800, L3130.0010, L503.0106, L500.4050, L100.0100 ####[facility] [address] [place], [place], [phone] Basophils/100 WBC (Bld) 1.1 % High 0-1 [facility] Comment on above: Performed By: #### L 100.9950, L501.6710, L3100.3425, L101.9900, L3000.0800, L3130.0010, L503.0106, L500.4050, L100.0100 ####[facility] [address] [place], [address] Eosinophils/100 WBC (Bld) 0.4 % Normal 0-5 [facility] Comment on above: Performed By: #### L 100.9950, L501.6710, L3100.3425, L101.9900, L3000.0800, L3130.0010, L503.0106, L500.4050, L100.0100 ####[facility] [address] [place], [address] Erythrocyte distribution width (RBC) [Ratio] 13.4 % Normal 11.6-14.6 [facility] Comment on above: Performed By: #### L 100.9950, L501.6710, L3100.3425, L101.9900, L3000.0800, L3130.0010, L503.0106, L500.4050, L100.0100 ####[facility] [address] [place], [address] Hematocrit (Bld) [Volume fraction] 37.4 % Normal 37-47 [facility] Comment on above: Performed By: #### L 100.9950, L501.6710, L3100.3425, L101.9900, L3000.0800, L3130.0010, L503.0106, L500.4050, L100.0100 ####[facility] [address] [place], [address] Hemoglobin (Bld) [Mass/Vol] 12.8 g/dL Normal 12.0-15.0 [facility] Comment on above: Performed By: #### L 100.9950, L501.6710, L3100.3425, L101.9900, L3000.0800, L3130.0010, L503.0106, L500.4050, L100.0100 ####[facility] [address] [place], [address] IG% 0.000 Normal 0.0-0.9 [facility] Comment on above: Result Comment: IG% - Immature Granulocytes (promyelocytes, myelocytes and metamyelocytes) > 1% indicates that a LEFT SHIFT is Present. Performed By: #### L 100.9950, L501.6710, L3100.3425, L101.9900, L3000.0800, L3130.0010, L503.0106, L500.4050, L100.0100 ####[facility] [address] [place], [address] Lymphocytes/100 WBC (Bld) 56.3 % High 19-41 [facility] Comment on above: Performed By: #### L 100.9950, L501.6710, L3100.3425, L101.9900, L3000.0800, L3130.0010, L503.0106, L500.4050, L100.0100 ####[facility] [address] [place], [address] MCH (RBC) [Entitic mass] 29.4 pg Normal 27.0-32.0 [facility] Comment on above: Performed By: #### L 100.9950, L501.6710, L3100.3425, L101.9900, L3000.0800, L3130.0010, L503.0106, L500.4050, L100.0100 ####[facility] [address] [place], [address] MCHC (RBC) [Mass/Vol] 34.2 g/dL Normal 32-36 [facility] Comment on above: Performed By: #### L 100.9950, L501.6710, L3100.3425, L101.9900, L3000.0800, L3130.0010, L503.0106, L500.4050, L100.0100 ####[facility] [address] [place], [address] MCV (RBC) [Entitic vol] 86.0 fL Normal 81-99 [facility] Comment on above: Performed By: #### L 100.9950, L501.6710, L3100.3425, L101.9900, L3000.0800, L3130.0010, L503.0106, L500.4050, L100.0100 ####[facility] [address] [place], [address] Monocytes/100 WBC (Bld) 8.0 % Normal 0-10 [facility] Comment on above: Performed By: #### L 100.9950, L501.6710, L3100.3425, L101.9900, L3000.0800, L3130.0010, L503.0106, L500.4050, L100.0100 ####[facility] [address] [place], [address] Neutrophils/100 WBC (Bld) 34.2 % Low 47-70 [facility] Comment on above: Performed By: #### L 100.9950, L501.6710, L3100.3425, L101.9900, L3000.0800, L3130.0010, L503.0106, L500.4050, L100.0100 ####[facility] [address] [place], [address] Nucleated RBC (Bld) [#/Vol] 0 10*3/uL Normal 0-5 [facility] Comment on above: Performed By: #### L 100.9950, L501.6710, L3100.3425, L101.9900, L3000.0800, L3130.0010, L503.0106, L500.4050, L100.0100 ####[facility] [address] [place], [address] Platelet mean volume (Bld) [Entitic vol] 9.0 fL Normal 6.2-12.0 [facility] Comment on above: Performed By: #### L 100.9950, L501.6710, L3100.3425, L101.9900, L3000.0800, L3130.0010, L503.0106, L500.4050, L100.0100 ####[facility] [address] [place], [address] Platelets (Bld) [#/Vol] 174 10*3/uL Normal 150-450 [facility] Comment on above: Performed By: #### L 100.9950, L501.6710, L3100.3425, L101.9900, L3000.0800, L3130.0010, L503.0106, L500.4050, L100.0100 ####[facility] [address] [place], [address] RBC (Bld) [#/Vol] 4.35 10*6/uL Normal 4.2-5.4 [facility] Comment on above: Performed By: #### L 100.9950, L501.6710, L3100.3425, L101.9900, L3000.0800, L3130.0010, L503.0106, L500.4050, L100.0100 ####[facility] [address] [place], [address] RDW SD 42.3 fl Normal 35.1-43.9 [facility] Comment on above: Performed By: #### L 100.9950, L501.6710, L3100.3425, L101.9900, L3000.0800, L3130.0010, L503.0106, L500.4050, L100.0100 ####[facility] [address] [place], [address] WBC (Bld) [#/Vol] 4.5 10*3/uL Normal 4.4-11.0 [facility] Comment on above: Performed By: #### L 100.9950, L501.6710, L3100.3425, L101.9900, L3000.0800, L3130.0010, L503.0106, L500.4050, L100.0100 ####[facility] [address] [place], [address] CRPon 10-14-2024 C-REACTIVE PROT < 3.00 Normal 0.0-3.0 [facility] Comment on above: Performed By: #### L 100.9950, L501.6710, L3100.3425, L101.9900, L3000.0800, L3130.0010, L503.0106, L500.4050, L100.0100 ####[facility] [address] [place], [address] Carbon dioxide, total [Moles /volume] in Central venous bloodOrdered By: Meet Santos on 10-14-2024 CO2 [Moles/Vol] 25.7 mmol/L 21.0-32.0 [facility] Chloride assayOrdered By: Sherlyn Santos on 10-14-2024 Chloride [Moles/Vol] 104 mmol/L 98-108 [facility] Comprehensive Metabolic Prof ilon 10-14-2024 Albumin [Mass/Vol] 4.5 g/dL Normal 3.4-4.8 [facility] Comment on above: Performed By: #### L 100.9950, L501.6710, L3100.3425, L101.9900, L3000.0800, L3130.0010, L503.0106, L500.4050, L100.0100 ####[facility] [address] [place], [address] Albumin/Globulin [Mass ratio] 1.5 {ratio} Normal 0.9-2.4 [facility] Comment on above: Performed By: #### L 100.9950, L501.6710, L3100.3425, L101.9900, L3000.0800, L3130.0010, L503.0106, L500.4050, L100.0100 ####[facility] [address] [place], [address] ALK PHOS 67 U/L Normal 35-104 [facility] Comment on above: Performed By: #### L 100.9950, L501.6710, L3100.3425, L101.9900, L3000.0800, L3130.0010, L503.0106, L500.4050, L100.0100 ####[facility] [address] [place], [phone] ALT [Catalytic activity/Vol] 36 U/L High <=34 [facility] Comment on above: Performed By: #### L 100.9950, L501.6710, L3100.3425, L101.9900, L3000.0800, L3130.0010, L503.0106, L500.4050, L100.0100 ####[facility] [address] [place], [place], [phone] AST [Catalytic activity/Vol] 42 U/L High <=31 [facility] Comment on above: Performed By: #### L 100.9950, L501.6710, L3100.3425, L101.9900, L3000.0800, L3130.0010, L503.0106, L500.4050, L100.0100 ####[facility] [address] [place], [address] Bilirubin [Mass/Vol] 0.43 mg/dL Normal 0.00-1.30 [facility] Comment on above: Performed By: #### L 100.9950, L501.6710, L3100.3425, L101.9900, L3000.0800, L3130.0010, L503.0106, L500.4050, L100.0100 ####[facility] [address] [place], [address] BUN/CRE 23.1 RATIO High 10-20 [facility] Comment on above: Performed By: #### L 100.9950, L501.6710, L3100.3425, L101.9900, L3000.0800, L3130.0010, L503.0106, L500.4050, L100.0100 ####[facility] [address] [place], [place], [phone] Calcium [Mass/Vol] 9.6 mg/dL Normal 7.6-11.0 [facility] Comment on above: Performed By: #### L 100.9950, L501.6710, L3100.3425, L101.9900, L3000.0800, L3130.0010, L503.0106, L500.4050, L100.0100 ####[facility] [address] [place], [address] Chloride [Moles/Vol] 104 mmol/L Normal 98-108 [facility] Comment on above: Performed By: #### L 100.9950, L501.6710, L3100.3425, L101.9900, L3000.0800, L3130.0010, L503.0106, L500.4050, L100.0100 ####[facility] [address] [place], [place], [phone]) CO2 [Moles/Vol] 25.7 mmol/L Normal 21.0-32.0 [facility] Comment on above: Performed By: #### L 100.9950, L501.6710, L3100.3425, L101.9900, L3000.0800, L3130.0010, L503.0106, L500.4050, L100.0100 ####[facility] [address] [place], [place], [phone](754) Creatinine [Mass/Vol] 0.73 mg/dL Normal 0.70-1.20 [facility] Comment on above: Performed By: #### L 100.9950, L501.6710, L3100.3425, L101.9900, L3000.0800, L3130.0010, L503.0106, L500.4050, L100.0100 ####[facility] [address] [place], [address] GAP 9 Normal 5-15 [facility] Comment on above: Performed By: #### L 100.9950, L501.6710, L3100.3425, L101.9900, L3000.0800, L3130.0010, L503.0106, L500.4050, L100.0100 ####[facility] [address] [place], [address] GFR/1.73 sq M.predicted among non-blacks MDRD (S/P/Bld) [Vol rate/Area] 86 mL/min/{1.73_m2} Normal >60 [facility] Comment on above: Result Comment: mL/m in/1.73m2 CKD-EPI Creatinine Equation (2020) Performed By: #### L 100.9950, L501.6710, L3100.3425, L101.9900, L3000.0800, L3130.0010, L503.0106, L500.4050, L100.0100 ####[facility] [address] [place], [address] Globulin (S) [Mass/Vol] 3.1 g/dL Normal 2.2-4.2 [facility] Comment on above: Performed By: #### L 100.9950, L501.6710, L3100.3425, L101.9900, L3000.0800, L3130.0010, L503.0106, L500.4050, L100.0100 ####[facility] [address] [place], [address] Glucose [Mass/Vol] 92 mg/dL Normal 70-99 [facility] Comment on above: Performed By: #### L 100.9950, L501.6710, L3100.3425, L101.9900, L3000.0800, L3130.0010, L503.0106, L500.4050, L100.0100 ####[facility] [address] [place], [address] Potassium [Moles/Vol] 3.9 mmol/L Normal 3.3-5.1 [facility] Comment on above: Performed By: #### L 100.9950, L501.6710, L3100.3425, L101.9900, L3000.0800, L3130.0010, L503.0106, L500.4050, L100.0100 ####[facility] [address] [place], [address] Sodium [Moles/Vol] 139 mmol/L Normal 133-145 [facility] Comment on above: Performed By: #### L 100.9950, L501.6710, L3100.3425, L101.9900, L3000.0800, L3130.0010, L503.0106, L500.4050, L100.0100 ####[facility] [address] [place], [address] T PROT 7.5 g/dL Normal 5.9-8.4 [facility] Comment on above: Performed By: #### L 100.9950, L501.6710, L3100.3425, L101.9900, L3000.0800, L3130.0010, L503.0106, L500.4050, L100.0100 ####[facility] [address] [place], [address] Urea nitrogen [Mass/Vol] 17 mg/dL Normal 4-19 [facility] Comment on above: Performed By: #### L 100.9950, L501.6710, L3100.3425, L101.9900, L3000.0800, L3130.0010, L503.0106, L500.4050, L100.0100 ####[facility] [address] [place], [address] Eosinophil percentageOrdered By: Meet Santos on 10-14-2024 Eosinophils/100 WBC (Bld) 0.4 % 0-5 [facility] Erythrocyte Sed Rateon 10-14 SED RATE 5 mm/hr Normal 0-30 [facility] Comment on above: Performed By: #### L 100.9950, L501.6710, L3100.3425, L101.9900, L3000.0800, L3130.0010, L503.0106, L500.4050, L100.0100 ####[facility] [address] [place], [address] Erythrocyte distribution wid th ratioOrdered By: [place] Danielle on 10-14-2024 Erythrocyte distribution width (RBC) [Ratio] 13.4 % 11.6-14.6 [facility] Erythrocyte distribution wid th standard deviationOrdered By: [facility] on 10-14-2024 Erythrocyte distribution width (RBC) [Ratio] 42.3 fl 35.1-43.9 [facility] Erythrocyte sedimentation ra teOrdered By: Meet Santos on 10-14-2024 ESR (Bld) [Velocity] 5 mm/h 0-30 [facility] Glomerular filtration rate ( GFR) estimation/1.73 sq m using serum, plasma, or whole bOrdered By: Meet Santos on 10-14-2024 GFR/1.73 sq M.predicted among non-blacks MDRD (S/P/Bld) [Vol rate/Area] 86 mL/min/{1.73_m2} >60 [facility] Comment on above: mL/min/1.73m2 CKD-EP I Creatinine Equation (2020) Hematocrit Auto (Bld) [Volum e fraction]Ordered By: [facility] on 10-14-2024 Hematocrit (Bld) [Volume fraction] 37.4 % 37-47 [facility] Hemoglobin measurementOrdere d By: Meet Santos on 10-14-2024 Hemoglobin (Bld) [Mass/Vol] 12.8 g/dL 12.0-15.0 [facility] Immature granulocytes/100 WB C Auto (Bld)Ordered By: [facility] on 10-14-2024 Immature granulocytes/100 WBC (Bld) 0.000 % 0.0-0.9 [facility] Comment on above: IG% - Immature Granu locytes (promyelocytes, myelocytes and metamyelocytes) > 1% indicates that a LEFT SHIFT is Present. Interpretation of serum or p lasma protein pattern by immunofixation (narrative resultOrdered By: Meet Santos on 05-15-2025 Protein Fractions Immunofixation Issac [Interp] Not Reportable [facility] Laboratory - Chemistry and C hemistry - challengeOrdered By: Meet Santos on 10-14-2024 AST [Catalytic activity/Vol] 42 U/L High <32 [facility] MCV (mean corpuscular volume ) determinationOrdered By: Meet Santos on 10-14-2024 MCV (RBC) [Entitic vol] 86.0 fL 81-99 [facility] Mean corpuscular hemoglobin (MCH) determinationOrdered By: Meet [facility] on 10-14-2024 MCH (RBC) [Entitic mass] 29.4 pg 27.0-32.0 [facility] Mean corpuscular hemoglobin concentration (MCHC) determinationOrdered By: Meet [facility] on 10-14-2024 MCHC (RBC) [Mass/Vol] 34.2 g/dL 32-36 [facility] Mean platelet volume determi nationOrdered By: Meet [facility] on 10-14-2024 Platelet mean volume (Bld) [Entitic vol] 9.0 fL 6.2-12.0 [facility] Monocyte percentageOrdered B y: [facility] on 10-14-2024 Monocytes/100 WBC (Bld) 8.0 % 0-10 [facility] Neutrophil percentageOrdered By: [facility] on 10-14-2024 Neutrophils/100 WBC (Bld) 34.2 % Low 47-70 [facility] No Panel InformationOrdered By: Meet Giang on 10-14-2024 Hepatitis Interpretation See comment [facility] Comment on above: TEST RESULTS LIMITSV iral Hepatitis HBV, HCV HBsAg Screen Negative Negative [...] Negative Negative Interpretation HBV Serology Interpretation Chart -- Interpretation HBsAg anti-HBs anti-HBc anti-HBc IgM -- Piper - Analyte present: + Analyte absent: - Test not indicated: TNI -- Susceptible (never infected and no evidence - - - TNI of vaccination) -- Immune due to natural resolved infection - + + TNI -- Immune due to vaccination - + - TNI -- Acute Infection + - + + -- Chronic infection + - + - -- Interpretation unclear* - - + +/- -- *Multiple possibilities: resolved infection (most common); false- positive anti-HBc (susceptible); low-level chronic infection; resolving acute infection.HCV Ab Non Reactive Non ReactiveInterpretation: Not infected with HCV unless early or acute infection is suspected (which may be delayed in an immunocompromised individual), or other evidence exists to indicate HCV infection. TESTING PERFORMED AT [facility]. ORIGINAL REPORT ON FILE IN LAB CONTAINS ADDITIONAL TEST SITE INFORMATION. Nucleated red blood cell per centageOrdered By: Meet Santos on 10-14-2024 Nucleated RBC/100 WBC (Bld) [Ratio] 0 % 0-5 [facility] Platelet countOrdered By: Sherlyn Santos on 10-14-2024 Platelets (Bld) [#/Vol] 174 10*3/uL 150-450 [facility] Potassium measurement (mass/ volume)Ordered By: Meet Santos on 10-14-2024 Potassium (Unsp spec) [Mass/Vol] 3.9 mmol/L 3.3-5.1 [facility] RBC Auto (Bld) [#/Vol]Ordere d By: Meet Santos on 10-14-2024 RBC (Bld) [#/Vol] 4.35 10*6/uL 4.2-5.4 [facility] Retic Panelon 10-14-2024 IM RET FRACTION 6.20 Normal 3.00-15.90 [facility] Comment on above: Performed By: #### L 100.9950, L501.6710, L3100.3425, L101.9900, L3000.0800, L3130.0010, L503.0106, L500.4050, L100.0100 ####[facility] [address] [place], [place], [phone] RET-HE 32.9 pg Normal 30-35 [facility] Comment on above: Performed By: #### L 100.9950, L501.6710, L3100.3425, L101.9900, L3000.0800, L3130.0010, L503.0106, L500.4050, L100.0100 ####[facility] [address] [place], [place], [id number] Retic Count 1.42 Normal 0.5-1.5 [facility] Comment on above: Performed By: #### L 100.9950, L501.6710, L3100.3425, L101.9900, L3000.0800, L3130.0010, L503.0106, L500.4050, L100.0100 ####[facility] [address] [facility] [place], [place], [id number] Reticulocyte hemoglobin equi valent (RET-He) measurementOrdered By: Meet Santos on 10-14-2024 Hemoglobin (Reticulocytes) [Entitic mass] 32.9 pg 30-35 [facility] Reticulocytes Auto (Bld) [#/ Vol]Ordered By: Meet Santos on 10-14-2024 Reticulocytes/100 RBC (Bld) 1.42 % 0.5-1.5 [facility] Serum creatinine measurement (mass/volume)Ordered By: Meet Santos on 10-14-2024 Creatinine [Mass/Vol] 0.73 mg/dL 0.70-1.20 [facility] Serum globulin measurementOr dered By: Meet Santos on 10-14-2024 Globulin (S) [Mass/Vol] 3.1 g/dL 2.2-4.2 [facility] Serum glucose measurement (m ass/volume)Ordered By: Meet Santos on 10-14-2024 Glucose [Mass/Vol] 92 mg/dL 70-99 [facility] Serum immunoglobulin kappa l ight chains/immunoglobulin lambda light chains mass ratioOrdered By: Meet Santos on 10-14-2024 Immunoglobulin light chains.kappa/Immunoglobul in light chains.lambda (S) [Mass ratio] Not Reportable [facility] Serum or plasma C reactive p rotein measurement (mass/volume)Ordered By: Meet Santos on 10-14-2024 CRP [Mass/Vol] mg/L 0.0-3.0 [facility] Serum or plasma IgA measurem ent (mass/volume)Ordered By: Meet Santos on 10-14-2024 IgA [Mass/Vol] Not Reportable [facility] Serum or plasma IgG measurem ent (mass/volume)Ordered By: Meet Santos on 10-14-2024 IgG [Mass/Vol] Not Reportable [facility] Serum or plasma alanine hoff otransferase (ALT) measurementOrdered By: Meet Santos on 10-14-2024 ALT [Catalytic activity/Vol] 36 U/L High <35 [facility] Serum or plasma albumin benito urement (mass/volume)Ordered By: Meet Santos on 10-14-2024 Albumin [Mass/Vol] 4.5 g/dL 3.4-4.8 [facility] Serum or plasma albumin/glob ulin mass ratioOrdered By: Meet Santos on 10-14-2024 Albumin/Globulin [Mass ratio] 1.5 {ratio} 0.9-2.4 [facility] Serum or plasma alkaline ruiz sphatase measurementOrdered By: Meet Santos on 10-14-2024 ALP [Catalytic activity/Vol] 67 U/L 35-104 [facility] Serum or plasma alpha 1 glob ulin measurement by electrophoresis (mass/volume)Ordered By: Meet Santos on 10-14-2024 Alpha 1 globulin Elph [Mass/Vol] Not Reportable [facility] Serum or plasma beta globuli n measurement by electrophoresis (mass/volume)Ordered By: Meet Santos on 10-14-2024 Beta globulin Elph [Mass/Vol] Not Reportable [facility] Serum or plasma calcium benito urement (mass/volume)Ordered By: Meet Danielle on 10-14-2024 Calcium [Mass/Vol] 9.6 mg/dL 7.6-11.0 [facility] Serum or plasma gamma globul in measurement by electrophoresis (mass/volume)Ordered By: Meet Giangolivia on 10-14-2024 Gamma globulin Elph [Mass/Vol] Not Reportable [facility] Serum or plasma immunoglobul in kappa light chains measurement (mass/volume)Ordered By: Meet Danielle on 10-14-2024 Immunoglobulin light chains.kappa [Mass/Vol] See comment [facility] Comment on above: TEST RESULTS LIMITSF ree K+L Lt Chains,Qn,S Free [place] Lt Chains,S 33.3 High mg/L 3.3-19.4 Free Lambda Lt Chains,S 45.0 High mg/L 5.7-26.3 [place]/Lambda Ratio,S 0.96 0.26-1.65 TESTING PERFORMED AT [facility]. ORIGINAL REPORT ON FILE IN LAB CONTAINS ADDITIONAL TEST SITE INFORMATION. Serum or plasma protein benito urement (mass/volume)Ordered By: Meet Danielle on 10-14-2024 Protein [Mass/Vol] See comment [facility] Comment on above: TEST RESULTS LIMITSI FE and PE, Serum Immunoglobulin G, Qn, Serum 1622 High mg/dL 586-1602 Immunoglobulin A, Qn, Serum 172 mg/dL 87-352 Immunoglobulin M, Qn, Serum 106 mg/dL 26-217 Protein, Total 7.2 g/dL 6.0-8.5 Albumin 3.9 g/dL 2.9-4.4 Edohb-8-Ecyujerj 0.2 g/dL 0.0-0.4 Qatck-5-Mmyfnphn 0.6 g/dL 0.4-1.0 Beta Globulin 0.9 g/dL 0.7-1.3 Gamma Globulin 1.6 g/dL 0.4-1.8 M-Fabián Not Observed g/dL Not Observed Globulin, Total 3.3 g/dL 2.2-3.9 A/G Ratio 1.2 0.7-1.7 Immunofixation Result, Serum Comment: Presence of monoclonal protein is unclear at this time. Suggest repeat in 3 to 6 months if clinically indicated.Please note: Protein electrophoresis scan will follow via computer, mail, orcourier delivery. TESTING PERFORMED AT [facility]. ORIGINAL REPORT ON FILE IN LAB CONTAINS ADDITIONAL TEST SITE INFORMATION. Serum or plasma urea nitroge n measurement (mass/volume)Ordered By: Meet Santos on 10-14-2024 Urea nitrogen [Mass/Vol] 17 mg/dL 4-19 [facility] Sodium levelOrdered By: Ramakrishna Santos on 10-14-2024 Sodium [Moles/Vol] 139 mmol/L 133-145 [facility] Total proteinOrdered By: Kevin Santos on 10-14-2024 Protein [Mass/Vol] 7.5 g/dL 5.9-8.4 [facility] Vitamin B12on 10-14-2024 Cobalamin (Vitamin B12) [Mass/Vol] 660 pg/mL Normal 180-914 [facility] Comment on above: Performed By: #### L 100.9950, L501.6710, L3100.3425, L101.9900, L3000.0800, L3130.0010, L503.0106, L500.4050, L100.0100 ####[facility] [address] [place], [place], [id number] Vitamin B12 ser/plasOrdered By: Meet Santos on 10-14-2024 Cobalamin (Vitamin B12) [Mass/Vol] 660 pg/mL 180-914 [facility] White blood cell (WBC) count Ordered By: Meet Santos on 10-14-2024 WBC (Bld) [#/Vol] 4.5 10*3/uL 4.4-11.0 [facility] Bone Survey Comp(Axial Appen d)on 09-08-2024 Bone Survey Comp(Axial Append) [facility] Services [address] [place] [address] Bone Survey Comp(Axial Append) MR#: [id number] Acct: [id number] Name: OLGA STAFFORD Rep #: [id number] : 1950 F 74 From: Johnathan Gutierrez MD PCP: Dr. Radha Rodas DO Status: REG CLI Study: Bone Survey Comp(Axial Append) Date of Exam: 0 09/08/24 Exam# [id number] Ordering Dr: Meet Santos MD EXAM: XR [...] as above. Otherwise, unremarkable exam. Reading Location: [facility]- CC: Dr. Meet Santos MD; Dr. Radha Rodas DO Engine Tester: Signed Normal [facility] ABD Limited w/ Elastographyo n 09-06-2024 ABD Limited w/ Elastography [facility] Services [address] [place] [address] ABD Limited w/ Elastography MR#: [id number] Acct: [id number] Name: OLGA STAFFORD #: [id number] : 1950 F 74 From: Johnathan Stephens MD PCP: Dr. 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 [employer] S-shear wave elastography was performed for non-invasive [...] (15kPa): Significant fibrosis / cirrhosis Reading Location: [facility] CC: Dr. Meet Santos MD; Dr. Radha Rodas DO Engine Tester: Signed Normal [facility] Oncology Visit Reporton 08-01 Oncology Visit Report [facility] [address] [place], [place] [address] [place] [address] OFFICE VISIT Date of Service: 08/26/24 1503 MR#: [id number] Acct: [id number] Name: OLGA STAFFORD Rep #: [id number] : 1950 From: Meet Santos MD Age/Sex: 74/F Location: [facility] Status: Signed with Addenda ADDENDUM by Dr. 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 [facility] Medical History (Updated 08/26/24 @ 16:17 by [...] Hives Medications ???Medication ???Instructions ???Recorded ???Confirmed ???Type aqseabux-cmg-eaoy-FA-Ca carb-vit K 1 tab PO DAILY 03/25/19 08/26/24 History 18 mg iron-400 mc (more content not included)... Normal [facility] IgG Subclasseson 07-13-2024 IgG, SUBCLASS 1 1170 mg/dL High 248-810 [facility] Comment on above: Performed By: #### L 3200.0500 ####[facility] [address] [place], [address] IgG, SUBCLASS 2 102 mg/dL Low 130-555 [facility] Comment on above: Performed By: #### L 3200.0500 ####[facility] [address] [place], [address] IgG, SUBCLASS 3 102 mg/dL Normal 15-102 [facility] Comment on above: Performed By: #### L 3200.0500 ####[facility] [address] [place], [address] IgG, SUBCLASS 4 19 mg/dL Normal 2-96 [facility] Comment on above: Result Comment: Perf ormed at: - [facility] [id number] Data Entry Supervisor: Cristhian Nath PhD, Phone: [phone] Performed By: #### L 3200.0500 ####[facility] [address] [place], [address] IGG,QUANT 1666 mg/dL High 586-1602 [facility] Comment on above: Performed By: #### L 3200.0500 ####[facility] [address] [place], [address] IgG [Mass/Vol]Ordered By: Arelis Mena on 07-12-2024 Immunoglobulin G Total 1666 mg/dL High 586-1602 [facility] IgG subclass 1 (S) [Mass/Vol ]Ordered By: Azul Mena on 07-12-2024 Immunoglobulin G1 1170 mg/dL High 248-810 [facility] IgG subclass 2 (S) [Mass/Vol ]Ordered By: Azul Mena on 07-12-2024 Immunoglobulin G2 102 mg/dL Low 130-555 [facility] IgG subclass 3 (S) [Mass/Vol ]Ordered By: Azul Mena on 07-12-2024 Immunoglobulin G3 102 mg/dL 15-102 [facility] Immunoglobulin G4 measuremen tOrdered By: Azul Mena on 07-12-2024 Immunoglobulin G4 19 mg/dL 2-96 [facility] Comment on above: Performed at: [facility] [employer] [address] [id number] Director: Cristhian Nath PhD, Phone: [phone] Serum IgG subclass 1 measure ment (mass/volume)Ordered By: Azul Mena on 07-12-2024 IgG subclass 1 (S) [Mass/Vol] 1170 mg/dL High 248-810 [facility] Serum IgG subclass 2 measure ment (mass/volume)Ordered By: Azul Mena on 07-12-2024 IgG subclass 2 (S) [Mass/Vol] 102 mg/dL Low 130-555 [facility] Serum IgG subclass 3 measure ment (mass/volume)Ordered By: Azul Mena on 07-12-2024 IgG subclass 3 (S) [Mass/Vol] 102 mg/dL 15-102 [facility] Serum or plasma IgG measurem ent (mass/volume)Ordered By: Azul Mena on 07-12-2024 IgG [Mass/Vol] 1666 mg/dL High 586-1602 [facility] DIVYA Comprehensive Panelon ANTI-DNA (DS)AB Normal [facility] Comment on above: Result Comment: TEST RESULTS LIMITS Antinuclear Ab 9 by Multiplex Anti-DNA (DS) Ab Qn <1 IU/mL 0-9 Negative <5 Equivocal 5 - 9 Positive >9 RESIDENT CARE MANAGER Antibodies 0.3 AI 0.0-0.9 Baez Antibodies [...] Sm (anti-Baez) SLE 15 - 30% --------- RESIDENT CARE MANAGER Mixed Connective Tissue Disease 95% (U1 nRNP, SLE 30 - 50% anti-ribonucleoprotein) Polymyositis and/or Dermatomyositis 20% --------- Scl-70 (antiDNA Scleroderma (diffuse) 20 - 35% topoisomerase) Crest 13% --------- Sherlyn-1 Polymyositis and/or Dermatomyositis 20 - 40% --------- Centromere B Scleroderma - Crest variant 80% TESTING PERFORMED AT [facility]. ORIGINAL REPORT ON FILE IN LAB CONTAINS ADDITIONAL TEST SITE INFORMATION. Performed By: #### Lindsay 3100.5440 #### [facility] Laboratory [address] [place], [address] ANTISCLERODERM TNP Normal [facility] Comment on above: Performed By: #### Lindsay 3100.5440 #### [facility] Laboratory [address] [facility] [facility] [place], [place], [id number] ANCAon 07-08-2024 Atypical pANCA <1:20 Normal Neg:<1:20 [facility] Comment on above: Result Comment: The atypical pANCA pattern has been observed in a significant percentage of patients with ulcerative colitis, primary sclerosing cholangitis and autoimmune hepatitis. Performed By: #### L 500.4050, L3300.1800, L3300.1200, L3410.2400, L101.9900, L501.2450, L501.6710, L5500.0550, L504.2610, L3200.1100, L501.2400, L5500.0300 ####[facility] [address] [place], [place], [id number] Cytoplasmic Ab <1:20 Normal Neg:<1:20 [facility] Comment on above: Performed By: #### L 500.4050, L3300.1800, L3300.1200, L3410.2400, L101.9900, L501.2450, L501.6710, L5500.0550, L504.2610, L3200.1100, L501.2400, L5500.0300 ####[facility] [address] [place], [place], [id number] Perinuclear Ab. <1:20 Normal Neg:<1:20 [facility] Comment on above: Result Comment: The presence [...] Clin Pathol 1999;111:507-513. Performed By: #### L 500.4050, L3300.1800, L3300.1200, L3410.2400, L101.9900, L501.2450, L501.6710, L5500.0550, L504.2610, L3200.1100, L501.2400, L5500.0300 ####[facility] [address] [place], [place], [address] Hernandez Valdez 2024 A. ALTERNATA <0.10 Normal Class 0 [facility] Comment on above: Performed By: #### L 500.4050, L3300.1800, L3300.1200, L3410.2400, L101.9900, L501.2450, L501.6710, L5500.0550, L504.2610, L3200.1100, L501.2400, L5500.0300 ####[facility] [address] [place], [place], [id number] BERMUDA GRASS <0.10 Normal Class 0 [facility] Comment on above: Performed By: #### L 500.4050, L3300.1800, L3300.1200, L3410.2400, L101.9900, L501.2450, L501.6710, L5500.0550, L504.2610, L3200.1100, L501.2400, L5500.0300 ####[facility] [address] [place], [place], [id number] [place] <0.10 Normal Class 0 [facility] Comment on above: Performed By: #### L 500.4050, L3300.1800, L3300.1200, L3410.2400, L101.9900, L501.2450, L501.6710, L5500.0550, L504.2610, L3200.1100, L501.2400, L5500.0300 ####[facility] [address] [place], [place], [id number] CAT HAIR/DANDER <0.10 Normal Class 0 [facility] Comment on above: Performed By: #### L 500.4050, L3300.1800, L3300.1200, L3410.2400, L101.9900, L501.2450, L501.6710, L5500.0550, L504.2610, L3200.1100, L501.2400, L5500.0300 ####[facility] [address] [place], [address] COMMENT Comment Normal . [facility] Comment on above: Result Comment: Annie esposito of Specific IgE Class Description of Class ----- < 0.10 0 Negative 0.10 - 0.31 0/I Equivocal/Low 0.32 - 0.55 I Low 0.56 - 1.40 II Moderate 1.41 - 3.90 III High 3.91 - 19.00 IV Very High 19.01 - 100.00 V Very High >100.00 Very High Performed By: #### L 500.4050, L3300.1800, L3300.1200, L3410.2400, L101.9900, L501.2450, L501.6710, L5500.0550, L504.2610, L3200.1100, L501.2400, L5500.0300 ####[facility] [address] [place], [address] D FARINAE MITE <0.10 Normal Class 0 [facility] Comment on above: Performed By: #### L 500.4050, L3300.1800, L3300.1200, L3410.2400, L101.9900, L501.2450, L501.6710, L5500.0550, L504.2610, L3200.1100, L501.2400, L5500.0300 ####[facility] [address] [place], [address] D PTERONYSSINUS <0.10 Normal Class 0 [facility] Comment on above: Performed By: #### L 500.4050, L3300.1800, L3300.1200, L3410.2400, L101.9900, L501.2450, L501.6710, L5500.0550, L504.2610, L3200.1100, L501.2400, L5500.0300 ####[facility] [address] [place], [place], [phone] DOG EPITHELIA <0.10 Normal Class 0 [facility] Comment on above: Performed By: #### L 500.4050, L3300.1800, L3300.1200, L3410.2400, L101.9900, L501.2450, L501.6710, L5500.0550, L504.2610, L3200.1100, L501.2400, L5500.0300 ####[facility] [address] [place], [place], [phone] ELM,AMER WHITE <0.10 Normal Class 0 [facility] Comment on above: Performed By: #### L 500.4050, L3300.1800, L3300.1200, L3410.2400, L101.9900, L501.2450, L501.6710, L5500.0550, L504.2610, L3200.1100, L501.2400, L5500.0300 ####[facility] [address] [place], [address] Mouse Urine <0.10 Normal Class 0 [facility] Comment on above: Result Comment: Perf ormed at: - [address] [id number] Data Entry Supervisor: Talia Avendano MD, Phone: [phone] Performed By: #### L 500.4050, L3300.1800, L3300.1200, L3410.2400, L101.9900, L501.2450, L501.6710, L5500.0550, L504.2610, L3200.1100, L501.2400, L5500.0300 ####[facility] [address] [place], [address] OAK, WHITE <0.10 Normal Class 0 [facility] Comment on above: Performed By: #### L 500.4050, L3300.1800, L3300.1200, L3410.2400, L101.9900, L501.2450, L501.6710, L5500.0550, L504.2610, L3200.1100, L501.2400, L5500.0300 ####[facility] [address] [place], [address] [facility] <0.10 Normal Class 0 [facility] Comment on above: Performed By: #### L 500.4050, L3300.1800, L3300.1200, L3410.2400, L101.9900, L501.2450, L501.6710, L5500.0550, L504.2610, L3200.1100, L501.2400, L5500.0300 ####[facility] [address] [place], [address] [facility] <0.10 Normal Class 0 [facility] Comment on above: Performed By: #### L 500.4050, L3300.1800, L3300.1200, L3410.2400, L101.9900, L501.2450, L501.6710, L5500.0550, L504.2610, L3200.1100, L501.2400, L5500.0300 ####[facility] [address] [place], [address] Celiac Disease Profileon ENDOMYSIAL IGA Negative Normal Negative [facility] Comment on above: Performed By: #### L 500.4050, L3300.1800, L3300.1200, L3410.2400, L101.9900, L501.2450, L501.6710, L5500.0550, L504.2610, L3200.1100, L501.2400, L5500.0300 ####[facility] [address] [place], [address] tTG IGA <2 Normal 0-3 [facility] Comment on above: Result Comment: Nega tive 0 - 3 Weak Positive 4 - 10 Positive >10 Tissue Transglutaminase (tTG) has been identified as the endomysial antigen. Studies have demonstr- ated that endomysial IgA antibodies have over 99% specificity for gluten sensitive enteropathy. Performed By: #### L 500.4050, L3300.1800, L3300.1200, L3410.2400, L101.9900, L501.2450, L501.6710, L5500.0550, L504.2610, L3200.1100, L501.2400, L5500.0300 ####[facility] [address] [place], [address] Gastrin, Serumon 07-08-2024 GASTRIN 46 pg/mL Normal 0-115 [facility] Comment on above: Result Comment: [facility] Pattern Genomicsulite 2000 Immunochemiluminometric assay (ICMA) Values obtained with different assay methods or kits cannot be used interchangeably. Results cannot be interpreted as absolute evidence of the presence or absence of malignant disease. Performed at: [address] [id number] Data Entry Supervisor: Cristhian Nath PhD, Phone: [phone] Performed at: [facility] [address] [id number] Data Entry Supervisor: Talia Avendano MD, Phone: [phone] Performed By: #### L 500.4050, L3300.1800, L3300.1200, L3410.2400, L101.9900, L501.2450, L501.6710, L5500.0550, L504.2610, L3200.1100, L501.2400, L5500.0300 ####[facility] [address] [place], [address] Immunoglobulins G/A/M/David IMMUNOGLOB A QN 185 mg/dL Normal 64-422 [facility] Comment on above: Order Comment: Y Performed By: #### L 500.4050, L3300.1800, L3300.1200, L3410.2400, L101.9900, L501.2450, L501.6710, L5500.0550, L504.2610, L3200.1100, L501.2400, L5500.0300 ####[facility] [address] [place], [address] IMMUNOGLOB E QN 29 IU/mL Normal 6-495 [facility] Comment on above: Order Comment: Y Performed By: #### L 500.4050, L3300.1800, L3300.1200, L3410.2400, L101.9900, L501.2450, L501.6710, L5500.0550, L504.2610, L3200.1100, L501.2400, L5500.0300 ####[facility] [address] [place], [address] IMMUNOGLOB G QN 1644 mg/dL High 586-1602 [facility] Comment on above: Order Comment: Y Performed By: #### L 500.4050, L3300.1800, L3300.1200, L3410.2400, L101.9900, L501.2450, L501.6710, L5500.0550, L504.2610, L3200.1100, L501.2400, L5500.0300 ####[facility] [address] [place], [address] IMMUNOGLOB M QN 111 mg/dL Normal 26-217 [facility] Comment on above: Order Comment: Y Performed By: #### L 500.4050, L3300.1800, L3300.1200, L3410.2400, L101.9900, L501.2450, L501.6710, L5500.0550, L504.2610, L3200.1100, L501.2400, L5500.0300 ####[facility] [address] [place], [place], [id number] L5500.0550on 07-08-2024 BEEF <0.10 Normal Class 0 [facility] Comment on above: Performed By: #### L 500.4050, L3300.1800, L3300.1200, L3410.2400, L101.9900, L501.2450, L501.6710, L5500.0550, L504.2610, L3200.1100, L501.2400, L5500.0300 ####[facility] [address] [place], [place], [address] CHOCOLATE <0.10 Normal Class 0 [facility] Comment on above: Performed By: #### L 500.4050, L3300.1800, L3300.1200, L3410.2400, L101.9900, L501.2450, L501.6710, L5500.0550, L504.2610, L3200.1100, L501.2400, L5500.0300 ####[facility] [address] [place], [address] CODFISH <0.10 Normal Class 0 [facility] Comment on above: Performed By: #### L 500.4050, L3300.1800, L3300.1200, L3410.2400, L101.9900, L501.2450, L501.6710, L5500.0550, L504.2610, L3200.1100, L501.2400, L5500.0300 ####[facility] [address] [place], [place], [address] CORN <0.10 Normal Class 0 [facility] Comment on above: Performed By: #### L 500.4050, L3300.1800, L3300.1200, L3410.2400, L101.9900, L501.2450, L501.6710, L5500.0550, L504.2610, L3200.1100, L501.2400, L5500.0300 ####[facility] [address] [place], [address] EGG, WHOLE <0.10 Normal Class 0 [facility] Comment on above: Performed By: #### L 500.4050, L3300.1800, L3300.1200, L3410.2400, L101.9900, L501.2450, L501.6710, L5500.0550, L504.2610, L3200.1100, L501.2400, L5500.0300 ####[facility] [address] [place], [address] MILK (COW) <0.10 Normal Class 0 [facility] Comment on above: Performed By: #### L 500.4050, L3300.1800, L3300.1200, L3410.2400, L101.9900, L501.2450, L501.6710, L5500.0550, L504.2610, L3200.1100, L501.2400, L5500.0300 ####[facility] [address] [place], [address] MUSSELS <0.10 Normal Class 0 [facility] Comment on above: Performed By: #### L 500.4050, L3300.1800, L3300.1200, L3410.2400, L101.9900, L501.2450, L501.6710, L5500.0550, L504.2610, L3200.1100, L501.2400, L5500.0300 ####[facility] [address] [place], [address] PEANUT <0.10 Normal Class 0 [facility] Comment on above: Performed By: #### L 500.4050, L3300.1800, L3300.1200, L3410.2400, L101.9900, L501.2450, L501.6710, L5500.0550, L504.2610, L3200.1100, L501.2400, L5500.0300 ####[facility] [address] [place], [address] PORK <0.10 Normal Class 0 [facility] Comment on above: Performed By: #### L 500.4050, L3300.1800, L3300.1200, L3410.2400, L101.9900, L501.2450, L501.6710, L5500.0550, L504.2610, L3200.1100, L501.2400, L5500.0300 ####[facility] [address] [place], [place], [id number] SALMON <0.10 Normal Class 0 [facility] Comment on above: Performed By: #### L 500.4050, L3300.1800, L3300.1200, L3410.2400, L101.9900, L501.2450, L501.6710, L5500.0550, L504.2610, L3200.1100, L501.2400, L5500.0300 ####[facility] [address] [place], [address] SHRIMP <0.10 Normal Class 0 [facility] Comment on above: Performed By: #### L 500.4050, L3300.1800, L3300.1200, L3410.2400, L101.9900, L501.2450, L501.6710, L5500.0550, L504.2610, L3200.1100, L501.2400, L5500.0300 ####[facility] [address] [place], [place], [id number] SOYBEAN <0.10 Normal Class 0 [facility] Comment on above: Performed By: #### L 500.4050, L3300.1800, L3300.1200, L3410.2400, L101.9900, L501.2450, L501.6710, L5500.0550, L504.2610, L3200.1100, L501.2400, L5500.0300 ####[facility] [address] [place], [place], [id number] TUNA <0.10 Normal Class 0 [facility] Comment on above: Performed By: #### L 500.4050, L3300.1800, L3300.1200, L3410.2400, L101.9900, L501.2450, L501.6710, L5500.0550, L504.2610, L3200.1100, L501.2400, L5500.0300 ####[facility] [address] [place], [address] WHEAT <0.10 Normal Class 0 [facility] Comment on above: Performed By: #### L 500.4050, L3300.1800, L3300.1200, L3410.2400, L101.9900, L501.2450, L501.6710, L5500.0550, L504.2610, L3200.1100, L501.2400, L5500.0300 ####[facility] [address] [place], [address] Albumin to globulin ratioOrd ered By: Alejandro Roy on 07-05-2024 Albumin/Globulin [Mass ratio] 1.0 {ratio} 0.9-2.4 [facility] Alternaria alternata IgE ser umOrdered By: Alejandro Roy on 07-05-2024 Alternaria alternata IgE Allergen <0.10 kU/L Class 0 [facility] Amylaseon 07-05-2024 AISHWARYA 67 U/L Normal 25-115 [facility] Comment on above: Performed By: #### L 500.4050, L3300.1800, L3300.1200, L3410.2400, L101.9900, L501.2450, L501.6710, L5500.0550, L504.2610, L3200.1100, L501.2400, L5500.0300 ####[facility] [address] [place], [address] Atypical perinuclear antineu trophil cytoplasmic antibodies measurementOrdered By: Alejandro Roy on 07-05-2024 Atypical p-ANCA <1:20 titer Neg:<1:20 [facility] Comment on above: The atypical pANCA p attern has been observed in asignificant percentage of patients with ulcerative colitis,primary sclerosing cholangitis and autoimmune hepatitis. Beef IgE Qn (S)Ordered By: Mathieu Roy on 07-05-2024 Beef Allergen (RAST) <0.10 kU/L Class 0 [facility] B[place] grass IgE Qn (S)Orde red By: Alejandro Roy on 07-05-2024 [place] Grass Allergen <0.10 kU/L Class 0 [facility] Bilirubin, totalOrdered By: Alejandro Roy on 07-05-2024 Bilirubin [Mass/Vol] 0.40 mg/dL 0.20-1.00 [facility] Comment on above: For patients on eltr ombopag therapy, use of Dimension [place] TBIL is not recommended. Blood urea nitrogen (BUN)/cr eatinine ratioOrdered By: Alejandro Roy on 07-05-2024 Urea nitrogen/Creatinine [Mass ratio] 30.7 mg/mg High 10-20 [facility] C-reactive protein measureme nt by high sensitivity methodOrdered By: Alejandro Roy on 07-05-2024 C-Reactive Protein Extended Range < 2.90 mg/L 0.0-3.0 [facility] Comment on above: C-Reactive Protein ( CRP) provides useful information for thediagnosis, therapy and monitoring of inflammatory processesand associated diseases. For the evaluation of Relative Riskfor Cardiovascular Disease, a High Sensitivity CRP (HSCRP)should be ordered. CRPon 07-05-2024 C-REACTIVE PROT < 2.90 Normal 0.0-3.0 [facility] Comment on above: Result Comment: C-Re active Protein (CRP) provides useful information for the diagnosis, therapy and monitoring of inflammatory processes and associated diseases. For the evaluation of Relative Risk for Cardiovascular Disease, a High Sensitivity CRP (HSCRP) should be ordered. Performed By: #### L 500.4050, L3300.1800, L3300.1200, L3410.2400, L101.9900, L501.2450, L501.6710, L5500.0550, L504.2610, L3200.1100, L501.2400, L5500.0300 ####[facility] [address] [place], [place], [phone] Carbon dioxide measurementOr dered By: Alejandro Roy on 07-05-2024 CO2 [Moles/Vol] 26.0 mmol/L 21.0-32.0 [facility] Cat dander IgE Qn (S)Ordered By: Alejandro Roy on 07-05-2024 Cat Dander IgE Allergen <0.10 kU/L Class 0 [facility] Centromere B antibody assayO rdered By: Alejandro Roy on 07-05-2024 Centromere B Antibody TNP [facility] Comment on above: Test not performed Chloride measurementOrdered By: Alejandro Roy on 07-05-2024 Chloride [Moles/Vol] 108 mmol/L High 98-107 [facility] Chocolate IgE serumOrdered B y: Alejandro Roy on 07-05-2024 Chocolate Allergen (RAST) <0.10 kU/L Class 0 [facility] Chromatin antibody assayOrde red By: Alejandro Roy on 07-05-2024 Antichromatin Antibodies TNP [facility] Comment on above: Test not performed Codfish IgE Qn (S)Ordered By : Alejandro Roy on 07-05-2024 Codfish Allergen (RAST) <0.10 kU/L Class 0 [facility] Comprehensive Metabolic Prof ilon 07-05-2024 Albumin [Mass/Vol] 4.0 g/dL Normal 3.2-5.0 [facility] Comment on above: Performed By: #### L 500.4050, L3300.1800, L3300.1200, L3410.2400, L101.9900, L501.2450, L501.6710, L5500.0550, L504.2610, L3200.1100, L501.2400, L5500.0300 ####[facility] [address] [place], [place], [phone] Albumin/Globulin [Mass ratio] 1.0 {ratio} Normal 0.9-2.4 [facility] Comment on above: Performed By: #### L 500.4050, L3300.1800, L3300.1200, L3410.2400, L101.9900, L501.2450, L501.6710, L5500.0550, L504.2610, L3200.1100, L501.2400, L5500.0300 ####[facility] [address] [place], [place], [phone] ALK P 69 U/L Normal 45-117 [facility] Comment on above: Performed By: #### L 500.4050, L3300.1800, L3300.1200, L3410.2400, L101.9900, L501.2450, L501.6710, L5500.0550, L504.2610, L3200.1100, L501.2400, L5500.0300 ####[facility] [address] [place], [place], [phone] ALT [Catalytic activity/Vol] 43 U/L Normal 13-56 [facility] Comment on above: Performed By: #### L 500.4050, L3300.1800, L3300.1200, L3410.2400, L101.9900, L501.2450, L501.6710, L5500.0550, L504.2610, L3200.1100, L501.2400, L5500.0300 ####[facility] [address] [place], [place], [phone] AST [Catalytic activity/Vol] 41 U/L High 15-37 [facility] Comment on above: Performed By: #### L 500.4050, L3300.1800, L3300.1200, L3410.2400, L101.9900, L501.2450, L501.6710, L5500.0550, L504.2610, L3200.1100, L501.2400, L5500.0300 ####[facility] [address] [place], [place], [phone] Bilirubin [Mass/Vol] 0.40 mg/dL Normal 0.20-1.00 [facility] Comment on above: Result Comment: For patients on eltrombopag therapy, use of Dimension [place] TBIL is not recommended. Performed By: #### L 500.4050, L3300.1800, L3300.1200, L3410.2400, L101.9900, L501.2450, L501.6710, L5500.0550, L504.2610, L3200.1100, L501.2400, L5500.0300 ####[facility] [address] [place], [address] BUN/CRE 30.7 RATIO High 10-20 [facility] Comment on above: Performed By: #### L 500.4050, L3300.1800, L3300.1200, L3410.2400, L101.9900, L501.2450, L501.6710, L5500.0550, L504.2610, L3200.1100, L501.2400, L5500.0300 ####[facility] [address] [place], [address] CA,Total 9.1 mg/dL Normal 8.5-10.1 [facility] Comment on above: Performed By: #### L 500.4050, L3300.1800, L3300.1200, L3410.2400, L101.9900, L501.2450, L501.6710, L5500.0550, L504.2610, L3200.1100, L501.2400, L5500.0300 ####[facility] [address] [place], [address] Chloride [Moles/Vol] 108 mmol/L High 98-107 [facility] Comment on above: Performed By: #### L 500.4050, L3300.1800, L3300.1200, L3410.2400, L101.9900, L501.2450, L501.6710, L5500.0550, L504.2610, L3200.1100, L501.2400, L5500.0300 ####[facility] [address] [place], [place], [phone](714) CO2 [Moles/Vol] 26.0 mmol/L Normal 21.0-32.0 [facility] Comment on above: Performed By: #### L 500.4050, L3300.1800, L3300.1200, L3410.2400, L101.9900, L501.2450, L501.6710, L5500.0550, L504.2610, L3200.1100, L501.2400, L5500.0300 ####[facility] [address] [place], [phone]) Creatinine [Mass/Vol] 0.68 mg/dL Normal 0.55-1.02 [facility] Comment on above: Result Comment: The validity of the calculated GFR GFRAA in patients over 70 years has not been determined. Clinical correlation is essential. Performed By: #### L 500.4050, L3300.1800, L3300.1200, L3410.2400, L101.9900, L501.2450, L501.6710, L5500.0550, L504.2610, L3200.1100, L501.2400, L5500.0300 ####[facility] [address] [place], [place], [phone] EST GFR - AA 108 mL/min Normal >60 [facility] Comment on above: Result Comment: Afri can Kosovan GFR Calc Performed By: #### L 500.4050, L3300.1800, L3300.1200, L3410.2400, L101.9900, L501.2450, L501.6710, L5500.0550, L504.2610, L3200.1100, L501.2400, L5500.0300 ####[facility] [address] [place], [address] GAP 5 Normal 5-15 [facility] Comment on above: Performed By: #### L 500.4050, L3300.1800, L3300.1200, L3410.2400, L101.9900, L501.2450, L501.6710, L5500.0550, L504.2610, L3200.1100, L501.2400, L5500.0300 ####[facility] [address] [place], [place], [phone](020) GFR/1.73 sq M.predicted among non-blacks MDRD (S/P/Bld) [Vol rate/Area] 89 mL/min/{1.73_m2} Normal >60 [facility] Comment on above: Result Comment: Non- GFR Calc Performed By: #### L 500.4050, L3300.1800, L3300.1200, L3410.2400, L101.9900, L501.2450, L501.6710, L5500.0550, L504.2610, L3200.1100, L501.2400, L5500.0300 ####[facility] [address] [place], [address] Globulin (S) [Mass/Vol] 4.0 g/dL Normal 2.2-4.2 [facility] Comment on above: Performed By: #### L 500.4050, L3300.1800, L3300.1200, L3410.2400, L101.9900, L501.2450, L501.6710, L5500.0550, L504.2610, L3200.1100, L501.2400, L5500.0300 ####[facility] [address] [place], [address] Glucose [Mass/Vol] 99 mg/dL Normal 74-106 [facility] Comment on above: Performed By: #### L 500.4050, L3300.1800, L3300.1200, L3410.2400, L101.9900, L501.2450, L501.6710, L5500.0550, L504.2610, L3200.1100, L501.2400, L5500.0300 ####[facility] [address] [place], [address] Potassium [Moles/Vol] 3.6 mmol/L Normal 3.5-5.1 [facility] Comment on above: Performed By: #### L 500.4050, L3300.1800, L3300.1200, L3410.2400, L101.9900, L501.2450, L501.6710, L5500.0550, L504.2610, L3200.1100, L501.2400, L5500.0300 ####[facility] [address] [place], [place], [phone](679) Sodium [Moles/Vol] 139 mmol/L Normal 136-145 [facility] Comment on above: Performed By: #### L 500.4050, L3300.1800, L3300.1200, L3410.2400, L101.9900, L501.2450, L501.6710, L5500.0550, L504.2610, L3200.1100, L501.2400, L5500.0300 ####[facility] [address] [place], [place], [phone] T PROT 8.0 g/dL Normal 6.4-8.2 [facility] Comment on above: Performed By: #### L 500.4050, L3300.1800, L3300.1200, L3410.2400, L101.9900, L501.2450, L501.6710, L5500.0550, L504.2610, L3200.1100, L501.2400, L5500.0300 ####[facility] [address] [place], [place], [phone]([phone]) Urea nitrogen [Mass/Vol] 21 mg/dL High 7-18 [facility] Comment on above: Performed By: #### L 500.4050, L3300.1800, L3300.1200, L3410.2400, L101.9900, L501.2450, L501.6710, L5500.0550, L504.2610, L3200.1100, L501.2400, L5500.0300 ####[facility] [address] [place], [address] Butler IgE Qn (S)Ordered By: Mathieu Roy on 07-05-2024 Butler Allergen (RAST) <0.10 kU/L Class 0 [facility] Cow milk IgE Qn (S)Ordered B y: Alejandro Roy on 07-05-2024 Cow's Milk Allergen <0.10 kU/L Class 0 [facility] DNA double strand Ab Qn (S)O rdered By: Alejandro Roy on 07-05-2024 Anti-Double Strand DNA Antibody See comment [facility] Comment on above: TEST RESULTS LIMITSA ntinuclear Ab 9 by Multiplex Anti-DNA (DS) Ab Qn <1 IU/mL 0-9 Negative <5 Equivocal 5 - 9 Positive >9 RESIDENT CARE MANAGER Antibodies 0.3 AI 0.0-0.9 Baez Antibodies [...] 30% ---------Sm (anti-Baez) SLE 15 - 30% ---------RESIDENT CARE MANAGER Mixed Connective Tissue Disease 95%(U1 nRNP, SLE 30 - 50%anti-ribonucleoprotein) Polymyositis and/or Dermatomyositis 20% ---------Scl-70 (antiDNA Scleroderma (diffuse) 20 - 35%topoisomerase) Crest 13% ---------Sherlyn-1 Polymyositis and/or Dermatomyositis 20 - 40% ---------Centromere B Scleroderma - Crest variant 80% [facility] ORIGINAL REPORT ON FILE IN LAB CONTAINS ADDITIONAL TEST SITE INFORMATION. Dog epithelium IgE Qn (S)Ord ered By: Alejandro Roy on 07-05-2024 Dog Epithelia Allergen <0.10 kU/L Class 0 [facility] Endomysial IgA antibody assa yOrdered By: Alejandro Friend on 07-05-2024 Endomysial IgA Antibody Negative Negative [facility] Erythrocyte Sed Rateon 07-05 SED RATE 3 mm/hr Normal 0-30 [facility] Comment on above: Performed By: #### L 500.4050, L3300.1800, L3300.1200, L3410.2400, L101.9900, L501.2450, L501.6710, L5500.0550, L504.2610, L3200.1100, L501.2400, L5500.0300 ####[facility] [address] [place], [place], [phone] Erythrocyte sedimentation ra teOrdered By: Alejandro Roy on 07-05-2024 ESR (Bld) [Velocity] 3 mm/h 0-30 [facility] Estimated glomerular filtrat ion rate (GFR) AmericanOrdered By: Alejandro Roy on 07-05-2024 Estimated GFR (MDRD) Amer 108 mL/min >60 [facility] Comment on above: GFR Calc house dust mite IgE Qn (S)Ordered By: Alejandro Roy on 07-05-2024 Dermatophagoides pteronyss Allergen <0.10 kU/L Class 0 [facility] Gastrin [Mass/Vol]Ordered By : Alejandro Roy on 07-05-2024 Gastrin 46 pg/mL 0-115 [facility] Comment on above: Siemens Immulite 200 0 Immunochemiluminometric assay (ICMA)Values obtained with different assay methods or kits cannotbe used interchangeably. Results cannot be interpreted asabsolute evidence of the presence or absence of malignantdisease.Performed at: [facility] [id number] Director: Cristhian Nath PhD, Phone: [phone] at: [employer] [place] [id number] Director: Talia Avendano MD, Phone: [phone] Gastrin, serumOrdered By: Ra lesvia Roy on 07-05-2024 Gastrin [Mass/Vol] 46 pg/mL 0-115 [facility] Comment on above: Siemens Immulite 200 0 Immunochemiluminometric assay (ICMA)Values obtained with different assay methods or kits cannotbe used interchangeably. Results cannot be interpreted asabsolute evidence of the presence or absence of malignantdisease.Performed at: [employer] [address] [id number] Director: Cristhian Nath PhD, Phone: [phone] at: [employer] [id number] Director: Talia Avendano MD, Phone: [phone] Gastroenterology Visit Repor ton 07-05-2024 Gastroenterology Visit Report [facility] [address] [place] [address] OFFICE VISIT Date of Service: 07/05/24 MR#: [id number] Acct: [id number] Name: OLGA STAFFORD Rep #: [id number] : 1950 Provider: Alejandro Roy DO Age/Sex: 74/F Location: [facility] Status: Signed Intake Vital Signs 01/30/24 06:11 Height 5 ft 2 in Intake Visit Reasons: vomiting after protein Allergies Penicillins Allergy (Verified 01/30/24 06:21) Hives Medications ???Medication ???Instructions ???Recorded ???Confirmed ???Type mnoskrhl-sgk-qveo-FA-Ca carb-vit K 1 tab PO DAILY 03/25/19 [...] History (Updated 07/05/24 @ 10:[address] Allne FriendDO) Knee pain Surgical History History of appendectomy [...] he underwent imaging by her PCP at [facility] that showed a large amount of stool and delayed gastric emptying on a gastric emptying study. From 2013 and 2021 she had random bouts of vomiting probably eating types of foods such as, chickpeas, fish, pepitas, black beans, pecans and walnuts. Her treatment up until 2021 was food avoidance. In July 2021 she had saw an decision support analyst at previous clinic and was diagnosed with [...] food substa (more content not included)... Normal [facility] Glomerular filtration rate ( GFR) estimationOrdered By: Alejandro Roy on 07-05-2024 Estimated GFR (MDRD) Non-Af Amer 89 mL/min >60 [facility] Comment on above: Non- GFR Calc GFR/1.73 sq M.predicted among non-blacks MDRD (S/P/Bld) [Vol rate/Area] 89 mL/min/{1.73_m2} >60 [facility] Comment on above: Non- GFR Calc Glucose measurementOrdered B y: Alejandro Roy on 07-05-2024 Glucose [Mass/Vol] 99 mg/dL 74-106 [facility] IgA [Mass/Vol]Ordered By: Ra lesvia Roy on 07-05-2024 Immunoglobulin A 185 mg/dL 64-422 [facility] IgEOrdered By: Alejandro price on 07-05-2024 IgE 29 IU/mL 6-495 [facility] Immunoglobulin E 29 IU/mL 6-495 [facility] IgG [Mass/Vol]Ordered By: Ra lesvia Roy on 07-05-2024 Immunoglobulin G 1644 mg/dL High 586-1602 [facility] Immunoglobulin M measurement Ordered By: Alejandro Roy on 07-05-2024 Immunoglobulin M 111 mg/dL 26-217 [facility] Sherlyn-1 antibody assayOrdered B y: Alejandro Roy on 07-05-2024 SHERLYN-1 Antibody TNP [facility] Comment on above: Test not performed Kentucky blue grass IgE Qn ( S)Ordered By: Alejandro Roy on 07-05-2024 Kentucky Blue (October) Grass IgE Ab <0.10 kU/L Class 0 [facility] LDHon 07-05-2024 LDH 213 U/L Normal 84-246 [facility] Comment on above: Order Comment: 1 Performed By: #### L 500.4050, L3300.1800, L3300.1200, L3410.2400, L101.9900, L501.2450, L501.6710, L5500.0550, L504.2610, L3200.1100, L501.2400, L5500.0300 ####[facility] [address] [place], [address] Laboratory - Chemistry and C hemistry - challengeOrdered By: Alejandro Roy on 07-05-2024 AST [Catalytic activity/Vol] 41 U/L High 15-37 [facility] Laboratory - Miscellaneous t estsOrdered By: Alejandro Roy on 07-05-2024 Service comment (Unsp spec) [Interp] Comment . [facility] Comment on above: Levels of Specific I [...] 07-05-2024 LDH [Catalytic activity/Vol] 213 U/L 84-246 [facility] Lipaseon 07-05-2024 Lipase [Catalytic activity/Vol] 51 U/L Normal 13-75 [facility] Comment on above: Result Comment: David yo note: LIPASE revised reference range effective 22. New Lipase methodology. Expected to produce lower values than the previous assay method. NEW Reference Range: 13 - 75 U/L Performed By: #### L 500.4050, L3300.1800, L3300.1200, L3410.2400, L101.9900, L501.2450, L501.6710, L5500.0550, L504.2610, L3200.1100, L501.2400, L5500.0300 ####[facility] [address] [place], [address] Lipase measurementOrdered By : Alejandro Roy on 07-05-2024 Lipase [Catalytic activity/Vol] 51 U/L 13-75 [facility] Comment on above: Please note:LIPASE r evised reference range effective 22. New Lipase methodology. Expected to produce lower values than the previous assay method. NEW Reference Range: 13 - 75 U/L Mouse urine IgEOrdered By: Mathieu Roy on 07-05-2024 Mouse Urine Allergen IgE Antibody <0.10 kU/L Class 0 [facility] Comment on above: Performed at: [address] [id number] Director: Talia Avendano MD, Phone: [phone] Neutrophil cytoplasmic Ab.cl assic Qn (S)Ordered By: Alejandro Roy on 07-05-2024 Cytoplasmic ANCA (c-ANCA) Antibody <1:20 titer Neg:<1:20 [facility] Neutrophil cytoplasmic Ab.pe rinuclear IF (S) [Titer]Ordered By: Alejandro Roy on 07-05-2024 Perinuclear ANCA (p-ANCA) Antibody <1:20 titer Neg:<1:20 [facility] Comment on above: The presence of posi [...] only by EIA. Ref. AM J Clin Nndiwl2958;111:507-513. Peanut IgE Qn (S)Ordered By: Alejandro Roy on 07-05-2024 Peanut Allergen (RAST) <0.10 kU/L Class 0 [facility] Pork IgE Qn (S)Ordered By: Mathieu Roy on 07-05-2024 Pork Allergen (RAST) <0.10 kU/L Class 0 [facility] Potassium measurementOrdered By: Alejandro Roy on 07-05-2024 Potassium [Moles/Vol] 3.6 mmol/L 3.5-5.1 [facility] RESIDENT CARE MANAGER abOrdered By: Alejandro Valles iend on 07-05-2024 RESIDENT CARE MANAGER Antibody [facility] Comment on above: Test not performed SCL-70 extractable nuclear A b Qn (S)Ordered By: Alejandro Roy on 07-05-2024 Scl-70 (Scleroderma) Antibody [facility] Comment on above: Test not performed SS-A IgG antibody assayOrder ed By: Alejandro Roy on 07-05-2024 SS-A/Ro IgG Antibody [facility] Comment on above: Test not performed SS-B IgG antibody assayOrder ed By: Alejandro Roy on 07-05-2024 SS-B/La IgG Antibody [facility] Comment on above: Test not performed Jessup IgE Qn (S)Ordered By: Alejandro Roy on 07-05-2024 Jessup Allergen IgE Antibody <0.10 kU/L Class 0 [facility] Serum Bermuda grass IgE anti body assay (units/volume)Ordered By: Alejandro Roy on 07-05-2024 Bermuda grass IgE Qn (S) <0.10 kU/L Class 0 [facility] Serum DNA double strand anti body assay (units/volume)Ordered By: Alejandro Roy on 07-05-2024 DNA double strand Ab Qn (S) See comment [facility] Comment on above: TEST RESULTS LIMITSA ntinuclear Ab 9 by Multiplex Anti-DNA (DS) Ab Qn <1 IU/mL 0-9 Negative <5 Equivocal 5 - 9 Positive >9 RESIDENT CARE MANAGER Antibodies 0.3 AI 0.0-0.9 Baez Antibodies [...] 30% ---------Sm (anti-Baez) SLE 15 - 30% ---------RESIDENT CARE MANAGER Mixed Connective Tissue Disease 95%(U1 nRNP, SLE 30 - 50%anti-ribonucleoprotein) Polymyositis and/or Dermatomyositis 20% ---------Scl-70 (antiDNA Scleroderma (diffuse) 20 - 35%topoisomerase) Crest 13% ---------Sherlyn-1 Polymyositis and/or Dermatomyositis 20 - 40% ---------Centromere B Scleroderma - Crest variant 80% TESTING PERFORMED AT [facility]. ORIGINAL REPORT ON FILE IN LAB CONTAINS ADDITIONAL TEST SITE INFORMATION. Serum Dermatophagoides farin ae specific IgE antibody assayOrdered By: Alejandro Roy on 07-05-2024 Dermatophagoides farinae Allergen <0.10 kU/L Class 0 [facility] Serum Cameroonian plantain speci fic IgE antibody assayOrdered By: Alejandro Roy on 07-05-2024 Cameroonian Plantain Allergen (RAST) <0.10 kU/L Class 0 [facility] Serum house dust mi te IgE antibody assay (units/volume)Ordered By: Alejandro Roy on 07-05-2024 house dust mite IgE Qn (S) <0.10 kU/L Class 0 [facility] Serum Kentucky blue grass Ig E antibody assay (units/volume)Ordered By: Alejandro Roy on 07-05-2024 Kentucky blue grass IgE Qn (S) <0.10 kU/L Class 0 [facility] Serum Scl-70 antibody assay (units/volume)Ordered By: Alejandro Roy on 07-05-2024 SCL-70 extractable nuclear Ab Qn (S) TNP [facility] Comment on above: Test not performed Serum anion gap measurementO rdered By: Alejandro Roy on 07-05-2024 Anion gap [Moles/Vol] 5 mmol/L 5-15 [facility] Serum beef IgE antibody assa y (units/volume)Ordered By: Alejandro Roy on 07-05-2024 Beef IgE Qn (S) <0.10 kU/L Class 0 [facility] Serum cat dander IgE antibod y assay (units/volume)Ordered By: Alejandro Roy on 07-05-2024 Cat dander IgE Qn (S) <0.10 kU/L Class 0 [facility] Serum classic neutrophil cyt oplasmic antibody assay (units/volume)Ordered By: Alejandro Roy on 07-05-2024 Neutrophil cytoplasmic Ab.classic Qn (S) <1:20 titer Neg:<1:20 [facility] Serum codfish IgE antibody a ssay (units/volume)Ordered By: Alejandro Roy on 07-05-2024 Codfish IgE Qn (S) <0.10 kU/L Class 0 [facility] Serum common/short ragweed s pecific IgE antibody assayOrdered By: Alejandro Roy on 07-05-2024 Common Ragweed (Short) Allergen <0.10 kU/L Class 0 [facility] Serum corn IgE antibody assa y (units/volume)Ordered By: Alejandro Roy on 07-05-2024 Butler IgE Qn (S) <0.10 kU/L Class 0 [facility] Serum cow milk IgE antibody assay (units/volume)Ordered By: Alejandro Roy on 07-05-2024 Cow milk IgE Qn (S) <0.10 kU/L Class 0 [facility] Serum dog epithelium IgE ant ibody assay (units/volume)Ordered By: Alejandro Roy on 07-05-2024 Dog epithelium IgE Qn (S) <0.10 kU/L Class 0 [facility] Serum globulin measurementOr dered By: Alejandro Roy on 07-05-2024 Globulin (S) [Mass/Vol] 4.0 g/dL 2.2-4.2 [facility] Serum mussel specific IgE an tibody assayOrdered By: Alejandro Roy on 07-05-2024 Mussel Allergen IgE Antibody <0.10 kU/L Class 0 [facility] Serum or plasma IgA measurem ent (mass/volume)Ordered By: Alejandro Roy on 07-05-2024 IgA [Mass/Vol] 185 mg/dL 64-422 [facility] Serum or plasma IgG measurem ent (mass/volume)Ordered By: Alejandro Roy on 07-05-2024 IgG [Mass/Vol] 1644 mg/dL High 586-1602 [facility] Serum or plasma alanine hoff otransferase (ALT) measurementOrdered By: Alejandro Roy on 07-05-2024 ALT [Catalytic activity/Vol] 43 U/L 13-56 [facility] Serum or plasma albumin benito urement (mass/volume)Ordered By: Alejandro Roy on 07-05-2024 Albumin [Mass/Vol] 4.0 g/dL 3.2-5.0 [facility] Serum or plasma alkaline ruiz sphatase measurementOrdered By: Alejandro Roy on 07-05-2024 ALP [Catalytic activity/Vol] 69 U/L 45-117 [facility] Serum or plasma amylase benito urement (enzymatic activity/volume)Ordered By: Alejandro Roy on 07-05-2024 Amylase [Catalytic activity/Vol] 67 U/L 25-115 [facility] Serum or plasma calcium benito urement (mass/volume)Ordered By: Alejandro Roy on 07-05-2024 Calcium [Mass/Vol] 9.1 mg/dL 8.5-10.1 [facility] Serum or plasma creatinine m easurement (mass/volume)Ordered By: Alejandro Roy on 07-05-2024 Creatinine [Mass/Vol] 0.68 mg/dL 0.55-1.02 [facility] Comment on above: The validity of the calculated GFR & GFRAA in patients over 70 years has not been determined. Clinical correlation is essential. Serum or plasma urea nitroge n measurement (mass/volume)Ordered By: Alejandro Roy on 07-05-2024 Urea nitrogen [Mass/Vol] 21 mg/dL High 7-18 [facility] Serum peanut IgE antibody as say (units/volume)Ordered By: Alejandro Roy on 07-05-2024 Peanut IgE Qn (S) <0.10 kU/L Class 0 [facility] Serum perinuclear neutrophil cytoplasmic antibody titer by immunofluorescenceOrdered By: Alejandro Roy on 07-05-2024 Neutrophil cytoplasmic Ab.perinuclear IF (S) [Titer] <1:20 titer Neg:<1:20 [facility] Comment on above: The presence of posi [...] only by EIA. Ref. AM J Clin [id number];111:[id number]. Serum pork IgE antibody assa y (units/volume)Ordered By: Alejandro Roy on 07-05-2024 Pork IgE Qn (S) <0.10 kU/L Class 0 [facility] Serum salmon IgE antibody as say (units/volume)Ordered By: Alejandro Roy on 07-05-2024 Jessup IgE Qn (S) <0.10 kU/L Class 0 [facility] Serum shrimp specific IgE an tibody assayOrdered By: Alejandro Roy on 07-05-2024 Shrimp Allergen <0.10 kU/L Class 0 [facility] Serum soybean IgE antibody a ssay (units/volume)Ordered By: Alejandro Roy on 07-05-2024 Soybean IgE Qn (S) <0.10 kU/L Class 0 [facility] Serum tissue transglutaminas e (tTG) IgA antibody assay (units/volume)Ordered By: Alejandro Roy on 07-05-2024 tTG IgA Qn (S) <2 U/mL 0-3 [facility] Comment on above: Negative 0 - 3 Weak Positive 4 - 10 Positive >10 Tissue Transglutaminase (tTG) has been identified as the endomysial antigen. Studies have demonstr- ated that endomysial IgA antibodies have over 99% specificity for gluten sensitive enteropathy. Serum tuna IgE antibody assa y (units/volume)Ordered By: Alejandro Roy on 07-05-2024 Tuna IgE Qn (S) <0.10 kU/L Class 0 [facility] Serum wheat IgE antibody ass ay (units/volume)Ordered By: Alejandro Roy on 07-05-2024 Wheat IgE Qn (S) <0.10 kU/L Class 0 [facility] Serum white elm IgE antibody assay (units/volume)Ordered By: Alejandro Roy on 07-05-2024 White Elm IgE Qn (S) <0.10 kU/L Class 0 [facility] Serum white oak IgE antibody assay (units/volume)Ordered By: Alejandro Roy on 07-05-2024 Arthur IgE Qn (S) <0.10 kU/L Class 0 [facility] Serum whole egg IgE antibody assay (units/volume)Ordered By: Alejandro Roy on 07-05-2024 Whole Egg IgE Qn (S) <0.10 kU/L Class 0 [facility] Service comment (Unsp spec) [Interp]Ordered By: Alejandro Roy on 07-05-2024 RAST Comment Comment . [facility] Comment on above: Levels of Specific I gE Class Description of Class ----- < 0.10 0 Negative 0.10 - 0.31 0/I Equivocal/Low 0.32 - 0.55 I Low 0.56 - 1.40 II Moderate 1.41 - 3.90 III High 3.91 - 19.00 IV Very High 19.01 - 100.00 V Very High >100.00 Very High Baez antibody assayOrdered By: Alejandro Roy on 07-05-2024 SM Antibody TNP [facility] Comment on above: Test not performed Sodium levelOrdered By: Avril Cárdenas on 07-05-2024 Sodium [Moles/Vol] 139 mmol/L 136-145 [facility] Soybean IgE Qn (S)Ordered By : Alejandro Roy on 07-05-2024 Soybean Allergen (RAST) <0.10 kU/L Class 0 [facility] Total proteinOrdered By: Wilian Roy on 07-05-2024 Protein [Mass/Vol] 8.0 g/dL 6.4-8.2 [facility] Tuna IgE Qn (S)Ordered By: Mathieu Roy on 07-05-2024 Tuna Allergen (RAST) <0.10 kU/L Class 0 [facility] Wheat IgE Qn (S)Ordered By: Alejandro Roy on 07-05-2024 Wheat Allergen (RAST) <0.10 kU/L Class 0 [facility] White Elm IgE Qn (S)Ordered By: Alejandro Roy on 07-05-2024 White Elm Allergen <0.10 kU/L Class 0 [facility] Arthur IgE Qn (S)Ordered By: Alejandro Roy on 07-05-2024 Arthur Tree Allergen <0.10 kU/L Class 0 [facility] Whole Egg IgE Qn (S)Ordered By: Alejandro Roy on 07-05-2024 Egg Whole Allergen <0.10 kU/L Class 0 [facility] tTG IgA Qn (S)Ordered By: Ra lesvia Roy on 07-05-2024 Tissue Transglutaminase IgA Ab <2 U/mL 0-3 [facility] Comment on above: Negative 0 - 3 Weak Positive 4 - 10 Positive >10 Tissue Transglutaminase (tTG) has been identified as the endomysial antigen. Studies have demonstr- ated that endomysial IgA antibodies have over 99% specificity for gluten sensitive enteropathy. Absolute neutrophil countOrd ered By: Radha Rodas on 05-18-2024 Neutrophils (Bld) [#/Vol] 1.5 10*3/uL Low 2.0-7.7 [facility] Albumin to globulin ratioOrd ered By: Radha Rodas on 05-18-2024 Albumin/Globulin [Mass ratio] 0.9 {ratio} 0.9-2.4 [facility] Basophil percentageOrdered B y: Radha Rodas on 05-18-2024 Basophils/100 WBC (Bld) 1.0 % 0-1 [facility] Bilirubin, totalOrdered By: Radha Rodas on 05-18-2024 Bilirubin [Mass/Vol] 0.50 mg/dL 0.20-1.00 [facility] Comment on above: For patients on eltr ombopag therapy, use of Dimension [place] TBIL is not recommended. Blood urea nitrogen (BUN)/cr eatinine ratioOrdered By: Radha Rodas on 05-18-2024 Urea nitrogen/Creatinine [Mass ratio] 33.5 mg/mg High 10-20 [facility] CBC W/Diff, Automatedon 05-02 Absolute Lymph 2.14 X10 3/uL Normal 0.83-4.51 [facility] Comment on above: Performed By: #### L 100.0100, L501.36162, L500.4050, L501.9520, L500.4100, L506.0400 #### [facility] Laboratory [address] [place], [place], [id number] Absolute Neut 1.5 X10 3/uL Low 2.0-7.7 [facility] Comment on above: Performed By: #### L 100.0100, [id number], L500.4050, L501.9520, L500.4100, L506.0400 #### [facility] [address] [place], [address] Basophils/100 WBC (Bld) 1.0 % Normal 0-1 [facility] Comment on above: Performed By: #### L 100.0100, L501.07505, L500.4050, L501.9520, L500.4100, L506.0400 #### [facility] [address] [place], [address] Eosinophils/100 WBC (Bld) 1.4 % Normal 0-5 [facility] Comment on above: Performed By: #### L 100.0100, L501.47391, L500.4050, L501.9520, L500.4100, L506.0400 #### [facility] [address] [place], [address] Erythrocyte distribution width (RBC) [Ratio] 13.7 % Normal 11.6-14.6 [facility] Comment on above: Performed By: #### L 100.0100, L501.10211, L500.4050, L501.9520, L500.4100, L506.0400 #### [facility] [address] [place], [address] Hematocrit (Bld) [Volume fraction] 39.0 % Normal 37-47 [facility] Comment on above: Performed By: #### L 100.0100, L501.76808, L500.4050, L501.9520, L500.4100, L506.0400 #### [facility] [address] [place], [address] Hemoglobin (Bld) [Mass/Vol] 13.1 g/dL Normal 12.0-15.0 [facility] Comment on above: Performed By: #### L 100.0100, L501.01405, L500.4050, L501.9520, L500.4100, L506.0400 #### [facility] [address] [place], [address] IG% 0.200 Normal 0.0-0.9 [facility] Comment on above: Result Comment: IG% - Immature Granulocytes (promyelocytes, myelocytes and metamyelocytes) > 1% indicates that a LEFT SHIFT is Present. Performed By: #### L 100.0100, L501.58119, L500.4050, L501.9520, L500.4100, L506.0400 #### [facility] [address] [place], [address] Lymphocytes/100 WBC (Bld) 51.1 % High 19-41 [facility] Comment on above: Performed By: #### L 100.0100, L501.76303, L500.4050, L501.9520, L500.4100, L506.0400 #### [facility] [address] [place], [address] MCH (RBC) [Entitic mass] 28.6 pg Normal 27.0-32.0 [facility] Comment on above: Performed By: #### L 100.0100, L501.53216, L500.4050, L501.9520, L500.4100, L506.0400 #### [facility] [address] [place], [address] MCHC (RBC) [Mass/Vol] 33.6 g/dL Normal 32-36 [facility] Comment on above: Performed By: #### L 100.0100, L501.20912, L500.4050, L501.9520, L500.4100, L506.0400 #### [facility] [address] [place], [address] MCV (RBC) [Entitic vol] 85.2 fL Normal 81-99 [facility] Comment on above: Performed By: #### L 100.0100, L501.19687, L500.4050, L501.9520, L500.4100, L506.0400 #### [facility] [address] [place], [address] Monocytes/100 WBC (Bld) 11.7 % High 0-10 [facility] Comment on above: Performed By: #### L 100.0100, L501.40130, L500.4050, L501.9520, L500.4100, L506.0400 #### [facility] [address] [place], [address] Neutrophils/100 WBC (Bld) 34.6 % Low 47-70 [facility] Comment on above: Performed By: #### L 100.0100, L501.15547, L500.4050, L501.9520, L500.4100, L506.0400 #### [facility] [address] [place], [address] Nucleated RBC (Bld) [#/Vol] 0 10*3/uL Normal 0-5 [facility] Comment on above: Performed By: #### L 100.0100, L501.74803, L500.4050, L501.9520, L500.4100, L506.0400 #### [facility] [address] [place], [address] Platelet mean volume (Bld) [Entitic vol] 8.8 fL Normal 6.2-12.0 [facility] Comment on above: Performed By: #### L 100.0100, L501.14211, L500.4050, L501.9520, L500.4100, L506.0400 #### [facility] [address] [place], [address] Platelets (Bld) [#/Vol] 187 10*3/uL Normal 150-450 [facility] Comment on above: Performed By: #### L 100.0100, L501.57195, L500.4050, L501.9520, L500.4100, L506.0400 #### [facility] [address] [place], [address] RBC (Bld) [#/Vol] 4.58 10*6/uL Normal 4.2-5.4 [facility] Comment on above: Performed By: #### L 100.0100, L501.79436, L500.4050, L501.9520, L500.4100, L506.0400 #### [facility] [address] [place], [address] RDW SD 42.4 fl Normal 35.1-43.9 [facility] Comment on above: Performed By: #### L 100.0100, L501.60315, L500.4050, L501.9520, L500.4100, L506.0400 #### [facility] [address] [place], [address] WBC (Bld) [#/Vol] 4.2 10*3/uL Low 4.4-11.0 [facility] Comment on above: Performed By: #### L 100.0100, L501.71706, L500.4050, L501.9520, L500.4100, L506.0400 #### [facility] [address] [place], [address] Carbon dioxide measurementOr dered By: Radha Rodas on 05-18-2024 CO2 [Moles/Vol] 29.0 mmol/L 21.0-32.0 [facility] Chloride measurementOrdered By: Radha Rodas on 05-18-2024 Chloride [Moles/Vol] 109 mmol/L High 98-107 [facility] Comprehensive Metabolic Prof ilon 05-18-2024 Albumin [Mass/Vol] 3.5 g/dL Normal 3.2-5.0 [facility] Comment on above: Performed By: #### L 100.0100, L501.25675, L500.4050, L501.9520, L500.4100, L506.0400 #### [facility] [address] [place], [address] Albumin/Globulin [Mass ratio] 0.9 {ratio} Normal 0.9-2.4 [facility] Comment on above: Performed By: #### L 100.0100, L501.75162, L500.4050, L501.9520, L500.4100, L506.0400 #### [facility] [address] [place], [address] ALK P 68 U/L Normal 45-117 [facility] Comment on above: Performed By: #### L 100.0100, L501.36237, L500.4050, L501.9520, L500.4100, L506.0400 #### [facility] [address] [place], [address] ALT [Catalytic activity/Vol] 37 U/L Normal 13-56 [facility] Comment on above: Performed By: #### L 100.0100, L501.80675, L500.4050, L501.9520, L500.4100, L506.0400 #### [facility] [address] [place], [address] AST [Catalytic activity/Vol] 37 U/L Normal 15-37 [facility] Comment on above: Performed By: #### L 100.0100, L501.89159, L500.4050, L501.9520, L500.4100, L506.0400 #### [facility] [address] [place], [address] Bilirubin [Mass/Vol] 0.50 mg/dL Normal 0.20-1.00 [facility] Comment on above: Result Comment: For patients on eltrombopag therapy, use of Dimension [place] TBIL is not recommended. Performed By: #### L 100.0100, L501.62090, L500.4050, L501.9520, L500.4100, L506.0400 #### [facility] [address] [place], [address] BUN/CRE 33.5 RATIO High 10-20 [facility] Comment on above: Performed By: #### L 100.0100, L501.08397, L500.4050, L501.9520, L500.4100, L506.0400 #### [facility] [address] [place], [address] CA,Total 8.7 mg/dL Normal 8.5-10.1 [facility] Comment on above: Performed By: #### L 100.0100, L501.39007, L500.4050, L501.9520, L500.4100, L506.0400 #### [facility] [address] [place], [address] Chloride [Moles/Vol] 109 mmol/L High 98-107 [facility] Comment on above: Performed By: #### L 100.0100, L501.12592, L500.4050, L501.9520, L500.4100, L506.0400 #### [facility] [address] [place], [address] CO2 [Moles/Vol] 29.0 mmol/L Normal 21.0-32.0 [facility] Comment on above: Performed By: #### L 100.0100, L501.78866, L500.4050, L501.9520, L500.4100, L506.0400 #### [facility] [address] [place], [address] Creatinine [Mass/Vol] 0.72 mg/dL Normal 0.55-1.02 [facility] Comment on above: Result Comment: The validity of the calculated GFR GFRAA in patients over 70 years has not been determined. Clinical correlation is essential. Performed By: #### L 100.0100, L501.88792, L500.4050, L501.9520, L500.4100, L506.0400 #### [facility] [address] [place], [address] EST GFR - AA 102 mL/min Normal >60 [facility] Comment on above: Result Comment: Afri can Kosovan GFR Calc Performed By: #### L 100.0100, L501.09536, L500.4050, L501.9520, L500.4100, L506.0400 #### [facility] [address] [place], [address] GAP 2 Low 5-15 [facility] Comment on above: Performed By: #### L 100.0100, L501.98278, L500.4050, L501.9520, L500.4100, L506.0400 #### [facility] [address] [place], [address] GFR/1.73 sq M.predicted among non-blacks MDRD (S/P/Bld) [Vol rate/Area] 84 mL/min/{1.73_m2} Normal >60 [facility] Comment on above: Result Comment: Non- GFR Calc Performed By: #### L 100.0100, L501.45047, L500.4050, L501.9520, L500.4100, L506.0400 #### [facility] [address] [place], [address] Globulin (S) [Mass/Vol] 3.9 g/dL Normal 2.2-4.2 [facility] Comment on above: Performed By: #### L 100.0100, L501.36302, L500.4050, L501.9520, L500.4100, L506.0400 #### [facility] [address] [place], [address] Glucose [Mass/Vol] 99 mg/dL Normal 74-106 [facility] Comment on above: Performed By: #### L 100.0100, L501.99359, L500.4050, L501.9520, L500.4100, L506.0400 #### [facility] [address] [place], [address] Potassium [Moles/Vol] 3.9 mmol/L Normal 3.5-5.1 [facility] Comment on above: Performed By: #### L 100.0100, L501.96530, L500.4050, L501.9520, L500.4100, L506.0400 #### [facility] [address] [place], [address] Sodium [Moles/Vol] 140 mmol/L Normal 136-145 [facility] Comment on above: Performed By: #### L 100.0100, L501.26885, L500.4050, L501.9520, L500.4100, L506.0400 #### [facility] [address] [place], [address] T PROT 7.4 g/dL Normal 6.4-8.2 [facility] Comment on above: Performed By: #### L 100.0100, L501.89827, L500.4050, L501.9520, L500.4100, L506.0400 #### [facility] [address] [place], [address] Urea nitrogen [Mass/Vol] 24 mg/dL High 7-18 [facility] Comment on above: Performed By: #### L 100.0100, L501.89106, L500.4050, L501.9520, L500.4100, L506.0400 #### [facility] [address], [place], [id number] Direct serum free thyroxine (FT4) measurementOrdered By: Radha Rodas on 05-18-2024 Free T4 [Mass/Vol] 0.92 ng/dL 0.76-1.46 [facility] Eosinophil percentageOrdered By: Radha Rodas on 05-18-2024 Eosinophils/100 WBC (Bld) 1.4 % 0-5 [facility] Erythrocyte distribution wid th (RBC) [Ratio]Ordered By: Radha Rodas on 05-18-2024 Erythrocyte distribution width (RBC) [Entitic vol] 42.4 fL 35.1-43.9 [facility] Erythrocyte distribution wid th ratioOrdered By: Radha Rodas on 05-18-2024 Erythrocyte distribution width (RBC) [Ratio] 13.7 % 11.6-14.6 [facility] Estimated glomerular filtrat ion rate (GFR) AmericanOrdered By: Radha Rodas on 05-18-2024 Estimated GFR (MDRD) Amer 102 mL/min >60 [facility] Comment on above: GFR Calc Free T3on 05-18-2024 Free T3 [Mass/Vol] 2.8 pg/mL Normal 2.18-3.98 [facility] Comment on above: Performed By: #### L 100.0100, L501.05677, L500.4050, L501.9520, L500.4100, L506.0400 #### [facility] [address] [place], [place], [id number] Free V6Vadibqn By: Radha Benavides s on 05-18-2024 Free Triiodothyronine (T3) pg/dL 2.8 pg/mL 2.18-3.98 [facility] Glomerular filtration rate ( GFR) estimationOrdered By: Radha Rodas on 05-18-2024 Estimated GFR (MDRD) Non-Af Amer 84 mL/min >60 [facility] Comment on above: Non- GFR Calc Glucose measurementOrdered B y: Radha Rodas on 05-18-2024 Glucose [Mass/Vol] 99 mg/dL 74-106 [facility] Hematocrit Auto (Bld) [Volum e fraction]Ordered By: Radha Rodas on 05-18-2024 Hematocrit (Bld) [Volume fraction] 39.0 % 37-47 [facility] Hemoglobin measurementOrdere d By: Radha Rodas on 05-18-2024 Hemoglobin (Bld) [Mass/Vol] 13.1 g/dL 12.0-15.0 [facility] High density lipoprotein (HD L) measurementOrdered By: Radha Rodas on 05-18-2024 Cholesterol in HDL [Mass/Vol] 57 mg/dL >40 [facility] Comment on above: The drugs N-Acetylcy steine and Metamizole may falsely depress this assay. Reference Range HDL <40 mg/dL Low HDL Cholesterol HDL >or= 60 mg/dL High HDL Cholesterol Immature granulocytes/100 WB C Auto (Bld)Ordered By: Radha Rodas on 05-18-2024 Immature granulocytes/100 WBC (Bld) 0.200 % 0.0-0.9 [facility] Comment on above: IG% - Immature Granu locytes (promyelocytes, myelocytes and metamyelocytes) > 1% indicates that a LEFT SHIFT is Present. Laboratory - Chemistry and C hemistry - challengeOrdered By: Radha Rodas on 05-18-2024 AST [Catalytic activity/Vol] 37 U/L 15-37 [facility] Lipid Profileon 05-18-2024 Cholesterol [Mass/Vol] 222 mg/dL High 200 [facility] Comment on above: Result Comment: <200 mg/dL Desirable 200-240 mg/dL Borderline >240 mg/dL High Risk Performed By: #### L 100.0100, L501.71823, L500.4050, L501.9520, L500.4100, L506.0400 #### [facility] [address] [place], [address] Cholesterol in HDL [Mass/Vol] 57 mg/dL Normal [facility] Comment on above: Result Comment: The drugs N-Acetylcysteine and Metamizole may falsely depress this assay. Reference Range HDL <40 mg/dL Low HDL Cholesterol HDL >or= 60 mg/dL High HDL Cholesterol Performed By: #### L 100.0100, L501.37128, L500.4050, L501.9520, L500.4100, L506.0400 #### [facility] [address] [place], [address] Cholesterol in LDL [Mass/Vol] 135 mg/dL High 0-130 [facility] Comment on above: Performed By: #### L 100.0100, L501.04727, L500.4050, L501.9520, L500.4100, L506.0400 #### [facility] [address] [place], [address] Cholesterol in VLDL [Mass/Vol] 30 mg/dL Normal 5-40 [facility] Comment on above: Performed By: #### L 100.0100, L501.36462, L500.4050, L501.9520, L500.4100, L506.0400 #### [facility] [address] [place], [address] Triglyceride [Mass/Vol] 150 mg/dL Normal [facility] Comment on above: Result Comment: The drugs N-Acetylcysteine and Metamizole may falsely depress this assay. Serum Triglycerides Reference Interval Normal <150 mg/dL Borderline high 150 - 199 mg/dL High 200 - 499 mg/dL Very High > or = 500 mg/dL Performed By: #### L 100.0100, L501.02025, L500.4050, L501.9520, L500.4100, L506.0400 #### [facility] [address] [place], [address] Low density lipoprotein (LDL ) cholesterol measurementOrdered By: Radha Rodas on 05-18-2024 Cholesterol in LDL [Mass/Vol] 135 mg/dL High 0-130 [facility] Lymphocytes Auto (Unsp spec) [#/Vol]Ordered By: Radha Rodas on 05-18-2024 Lymphocytes (Bld) [#/Vol] 2.14 10*3/uL 0.83-4.5 1 [facility] Lymphocytes/100 WBC Auto (Un sp spec)Ordered By: Radhakaz Rodas on 05-18-2024 Lymphocytes/100 WBC (Bld) 51.1 % High 19-41 [facility] MCV (mean corpuscular volume ) determinationOrdered By: Radha Rodas on 05-18-2024 MCV (RBC) [Entitic vol] 85.2 fL 81-99 [facility] Mean corpuscular hemoglobin (MCH) determinationOrdered By: Radha Rodas on 05-18-2024 MCH (RBC) [Entitic mass] 28.6 pg 27.0-32.0 [facility] Mean corpuscular hemoglobin concentration (MCHC) determinationOrdered By: Radha Rodas on 05-18-2024 MCHC (RBC) [Mass/Vol] 33.6 g/dL 32-36 [facility] Mean platelet volume determi nationOrdered By: Radha Rodas on 05-18-2024 Platelet mean volume (Bld) [Entitic vol] 8.8 fL 6.2-12.0 [facility] Monocyte percentageOrdered B y: Radha Rodas on 05-18-2024 Monocytes/100 WBC (Bld) 11.7 % High 0-10 [facility] Neutrophil percentageOrdered By: Radha Rodas on 05-18-2024 Neutrophils/100 WBC (Bld) 34.6 % Low 47-70 [facility] Nucleated red blood cell per centageOrdered By: Radha Rodas on 05-18-2024 Nucleated RBC/100 WBC (Bld) [Ratio] 0 % 0-5 [facility] Platelet countOrdered By: Arelis Rodas on 05-18-2024 Platelets (Bld) [#/Vol] 187 10*3/uL 150-450 [facility] Potassium measurementOrdered By: Radha Rodas on 05-18-2024 Potassium [Moles/Vol] 3.9 mmol/L 3.5-5.1 [facility] RBC Auto (Bld) [#/Vol]Ordere d By: Radha Rodas on 05-18-2024 RBC (Bld) [#/Vol] 4.58 10*6/uL 4.2-5.4 [facility] Serum anion gap measurementO rdered By: Radha Rodas on 05-18-2024 Anion gap [Moles/Vol] 2 mmol/L Low 5-15 [facility] Serum globulin measurementOr dered By: Radha Rodas on 05-18-2024 Globulin (S) [Mass/Vol] 3.9 g/dL 2.2-4.2 [facility] Serum or plasma alanine hoff otransferase (ALT) measurementOrdered By: Radha Rodas on 05-18-2024 ALT [Catalytic activity/Vol] 37 U/L 13-56 [facility] Serum or plasma albumin benito urement (mass/volume)Ordered By: Radha Rodas on 05-18-2024 Albumin [Mass/Vol] 3.5 g/dL 3.2-5.0 [facility] Serum or plasma alkaline ruiz sphatase measurementOrdered By: Radha Rodas on 05-18-2024 ALP [Catalytic activity/Vol] 68 U/L 45-117 [facility] Serum or plasma calcium benito urement (mass/volume)Ordered By: Radha Rodas on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 13:31) Hives Medications ?Medication ?Instructions ?Recorded ?Confirmed ?Type polyethylene glycol 3350 17 4 g PO QDAY 02/10/2502/10 History gram/dose oral powder (Miralax) Have you [...] Total Protein 8.0 Albumin 4.0 Globulin 4.0 Total Protein (PEP) Vitamin B12 IgG 1644 H IgG Total 1666 H IgG1 1170 H IgG2 102 L IgG3 102 IgA 185 IgM 111 IgE 29 LORENZO M-Fabián Free [place] LC, Quant Free Lambda LC, Quant Free [place]/Lambda Ratio 10/14/24 02/03/25 14:04 08:17 WBC 4.5 4.2 L Hgb 12.8 12.8 Hct 37.4 38.2 Plt Count 174 200 Absolute Neuts (auto) 1.5 L 1.7 L Absolute Lymphs (auto) 2.53 1.95 ESR 5 Sodium 139 142 Potassium 3.9 4.4 Chloride 104 107 Carbon Dioxide 25.7 25.6 BUN 17 21 H Creatinine 0.73 0.75 Glucose 92 82 Calcium 9.6 9.1 Total Bilirubin 0.43 0.32 AST 42 H 32 ALT 36 H 24 Alkaline Phosphatase 67 74 Lactate Dehydrogenase 193 C-React Prot Ext Range < 3.00 Total Protein 7.5 7.0 Albumin 4.5 4.1 Globulin 3.1 3.0 Total Protein (PEP) 6.6 Vitamin B12 660 IgG 1532 IgG Total IgG1 IgG2 IgG3 IgA 168 IgM 102 IgE LORNEZO M-Fabián Not Observed Free [place] LC, Quant 43.2 H Free Lambda LC, Quant 46.9 H Free [place]/Lambda Ratio 0.92 Exam Physical Exam Const alert, oriented x3 and no apparent distress Coding Level of Care Code Off vis,est,level 3 Exam Problem Focused Diagnoses 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 Plan: To continue observation. Monitor serum proteins. (2) Hypergammaglobulinemia, unspecified: Status: Resolved Comment: IgG level 1532 on 02/03/2025. Normalized now. Plan: To continue observation. To monitor serum proteins. Plan Details Follow Up: 6 Months Clinical Quality Measures Falls Risk Screening/Assistive Devices Have you fallen in the past year?: No 02/10/25 1420 <Electronically signed by Meet Price> Date _ Meet Santos MD Cosigner Signature: Date (if applicable) CC: Dr. Radha Rodas DO ~ [facility] [employer] Work Phone: 1(244) 973-511806-18-2025 Consult note [facility] Medical Records Department [address] [place] [address] Anesthesia Postop Eval I 11/17/24 07 MR#: [id number] Acct: [id number] Name: OLGA STAFFORD Rep #:[id number] : 1950 74 From: Tomasz Hagan PCP: Dr. Radha Rodas, DO Status:REG [facility] [place] Race: C Location: [place] [address] Anesthesia: Postop Eval I Current Vital Signs Temperature: 97.8 F Pulse Rate: 57 Blood Pressure: 89/54 Respiratory Rate: 16 Pulse Ox: 97 Oxygen Delivery Method: Room Air Assessment Airway patent: Yes Spontaneous unlabored respirations: Yes Mental status: Asleep nausea: No Vomiting: No Anesthesia Complication: No Fluid Hydration Crystalloid volume administer (ml): 300 Total IV fluid infused: 300 Progress Note Anesthesia document: Postop Eval 1 completed: Yes 11/17/24711 > Date _ Tomsaz Das Signature: Date CC: ~ Signed [facility]06-18-2025 Procedure note [facility] Medical Records Department [address] [place] [address] EGD Report MR#: [id number] Acct: [id number] Name: OLGA STAFFORD Rep #:[id number] : 1950 74 From: Alejandro Roy DO PCP: Dr. Radha Rodas, DO Status:REG SD Patient Name: Olga Stafford Procedure Date: 11/17/2024 6:09 AM Date of : 1950 Age: 74 Procedure: Upper GI endoscopy Indications: Epigastric abdominal pain, Functional Dyspepsia, Failure to respond to medical treatment Providers: Alejandro Roy DO Referring MD: Radha Rodas Medicines: Monitored Anesthesia Care Patient Profile: This is a 74 year old female. Refer to note in patient chart for documentation of history and physical. Patient has symptoms of acute abdominal cramping, acute epigastric abdominal pain, chronic nausea and acute vomiting. Complications: No immediate complications. Procedure: Pre-Anesthesia Assessment: - Prior to the procedure, a History and Physical was performed, and patient medications and allergies were reviewed. The patient is competent. The risks and benefits of the procedure and the sedation options and risks were discussed with the patient. All questions were answered and informed consent was obtained. Patient identification and proposed procedure were verified by the physician in the pre-procedure area. Mental Status Examination: alert and oriented. Airway Examination: normal oropharyngeal airway and neck mobility. Respiratory Examination: clear to auscultation. CV Examination: normal. Prophylactic Antibiotics: The patient does not require prophylactic antibiotics. Prior Anticoagulants: The patient has taken no anticoagulant or antiplatelet agents except for NSAID medication. ASA Grade Assessment: II - A patient with mild systemic disease. After reviewing the risks and benefits, the patient was deemed in satisfactory condition to undergo the procedure. The anesthesia plan was to use monitored anesthesia care (MAC). Immediately prior to administration of medications, the patient was re-assessed for adequacy to receive sedatives. The heart rate, respiratory rate, oxygen saturations, blood pressure, adequacy of pulmonary ventilation, and response to care were monitored throughout the procedure. The physical status of the patient was re-assessed after the procedure. After obtaining informed consent, the endoscope was passed under direct vision. Throughout the procedure, the patient's blood pressure, pulse, and oxygen saturations were monitored continuously. The Endoscope was introduced through the mouth, and advanced to the third part of the duodenum. Small bowel enteroscopy was deemed necessary. The upper GI endoscopy was accomplished without difficulty. The patient tolerated the procedure well. Scope In: 6:58:45 AM Scope Out: 7:03:22 AM Total Procedure Duration Time 0 hours 4 minutes 37 seconds Findings: The examined esophagus was normal. Biopsies were taken with a cold forceps for histology. Verification of patient identification for the specimen was done. Estimated blood loss was minimal. Patchy mildly erythematous mucosa without bleeding was found in the gastric body. Biopsies were taken with a cold forceps for histology. Biopsies were taken with a cold forceps for Helicobacter pylori testing. Verification of patient identification for the specimen was done. Estimated blood loss was minimal. Patchy mildly erythematous mucosa without active bleeding and with no stigmata of bleeding was found in the duodenal bulb. Biopsies were taken with a cold forceps for histology. Verification of patient identification for the specimen was done. Estimated blood loss was minimal. Impression: - Normal esophagus. Biopsied. - Erythematous mucosa in the gastric body. Biopsied. - Erythematous duodenopathy. Biopsied. Recommendation: - Discharge patient to home. - Resume previous diet. - Continue present medications. - Await pathology results. Procedure Code(s): --- Professional --- 10846, Small intestinal endoscopy, enteroscopy beyond second portion of duodenum, not including ileum; with biopsy, single or multiple CPT copyright 2021 [employer]. All rights reserved. The codes documented in this report are preliminary and upon chair frame builder review may be revised to meet current compliance requirements. Alejandro Roy DO 11/17/2024 7:06:53 AM This report has been signed electronically. Number of Addenda: 0 Note Initiated On: 11/17/2024 6:09 AM 11/17/24 0707 Date _ Alejandro Roy DO Cosigner Signature: Date (if indicated) CC: Dr. Radha Rodas DO; Alejandro Roy DO ~ Date Dictated: 11/17/24 0609 Date Transcribed: Engine Tester: RF Signed [facility]06-18-2025 Procedure note [facility] Medical Records Department [address] [place] [address] Operative Report - CC Letter MR#: [id number] Acct: [id number] Name: RIVERAOLGA Rep #:[id number] : 1950 74 From: Alejandro Roy DO PCP: Dr. Radha Rodas DO Status:REG [facility] 11/17/2024 Radha Rodas [address] [facility] [place] [address] [place] [address] Re : Upper GI endoscopy procedure for Olga Rivera Dear Dr. Rodas This procedure was performed on Sunday, November 17, 2024. My impressions and recommendations are as follows: Impressions : - Normal esophagus. Biopsied. - Erythematous mucosa in the gastric body. Biopsied. - Erythematous duodenopathy. Biopsied. Recommendations : - Discharge patient to home. - Resume previous diet. - Continue present medications. - Await pathology results. My findings are described in the full procedure note, which is enclosed. If I can be of further assistance, please feel free to contact me at . Sincerely, Alejandro Roy DO 11/17/2024 7:06:53 AM This report has been signed electronically. 11/17/24 0707 Date _ Alejandro Roy DO Cosigner Signature: Date (if indicated) CC: Dr. Radha Rodas DO; Alejandro Roy DO ~ Date Dictated: 11/17/24 0609 Date Transcribed: Engine Tester: RF Signed [facility]06-18-2025 History and physical note [facility] Medical Records Department [address] [facility] [place] [address] History & Physical Exam 11/17/24 0649 MR#: [id number] Acct: [id number] Name: OLGA STAFFORD Rep #:[id number] : 1950 74 From: Alejandro Roy DO PCP: Dr. Radha Rodas DO Status:[facility] Location: [place] [address] HPI - General General Date of Admission: 11/17/24 Date of Service: 11/17/24 Chief Complaint: Evaluation of nausea and vomiting HPI Narrative OLGA STAFFORD, is a 74 F who presents nausea and vomiting *BGI established 2.3.25 pt reports that for the last several years she has been having random episodes of vomiting 4 hours after she has eaten certain foods. ptreports that she has had scopes and a [...] she underwent imaging by her PCP at [facility] that showed a large amount of stool and delayed gastric emptying on a gastric emptying study. From 2013 and 2021 she had random bouts of vomiting probably eating types of foods such as, chickpeas, fish, pepitas, black beans, pecans and walnuts. Her treatment up until 2021 was food avoidance. In July 2021 she had saw an decision support analyst at previous clinic and was diagnosed withfood protein induced enterocolitis syndrome. Treatment was recommended In May 2024 she had breast spinach salad and had the same reaction. Up until that time avoiding those other foods that cause the problem was successful. However because of this new episode she came in for consultation. Referred to hematology for elevated IgG levels US and elastography 4.7.25 hepatic measurement 17cm with fatty infiltration,stiffness measures 6.8kPa OV 5.19.25 pt reports that she has not eaten any foods that have caused an episode, but states thatshe is feeling discouraged with not having any answers or treatment for her symptoms. Pt reports she is having a bm every 2-3 days and takes Miralax as needed. [facility] Medical History Wears glasses Post-menopausal Alcohol use Arthritis Injury of head and neck Loss of consciousness Non-smoker Knee pain Home Medications ?Medication ?Instructions ?Recorded ?Last Taken ?Type cetirizine 10 mg tablet 10 mg PO QDAY #30 tabs 10/1811/16/24 Rx diphenhydramine HCl 25 mg capsule 25 mg PO QHS 5 11/16/24 History (Aler-Cap) Allergy/AdvReac Type Severity Reaction Status Date / Time Penicillins Allergy Hives Verified 11/17/24 05:55 Family History Mother Hypertension CVA (cerebral vascular accident) Father Hypertension Prostate cancer Surgical History History of appendectomy Hx of appendectomy Social History Smoking Status: Never smoker alcohol intake: current alcohol intake frequency: holidays/special occasions only substance use type: does not use what type of physical activity do you participate in: walking and bicycling ROS Constitutional Constitutional: Denies fatigue, fever(s), poor appetite, weight gain or weight loss Gastrointestinal Gastrointestinal: Denies belching, bloating, change in bowel habits, change in stool character, chewing difficulty, coffee ground emesis, constipation, cramping, diarrhea, dyspepsia, dysphagia, earlysatiety, excessive flatus, fecalincontinence, heartburn, hematemesis, hematochezia, hemorrhoids, loose stools, melena, nausea, odynophagia, rectal bleeding, tenesmus, vomiting or weight changes Vital Signs Vital Signs Vital Signs: 11/17/24 05:55 11/17/24 05:55 11/17/24 06:29 Temperature 97.3 F L 97.3 F L Temperature Source Temporal Pulse Rate 52 L 52 L Respiratory Rate 12 12 Respiratory Pattern Normal Blood Pressure 126/75 H 126/75 H Blood Pressure Mean 92 Blood Pressure Source Monitor Blood Pressure Position Semi-Fowlers Blood Pressure Location Left Arm Pulse Ox 98 98 Oxygen Delivery Method Room Air Room Air Weight Weight: 125 lb 10.616 oz Body Mass Index (BMI) 22.9 Physical Exam Const alert, oriented x3, no apparent distress and healthy appearing General Appearance: cooperative GI normal to inspection, nondistended, normoactive bowel sounds, soft to palpation,non-tender and non-distended Percussion: normal to percussion Rectal Exam: deferred Assessment & Plan Assessment/Plan (1) Food intolerance in adult: (2) Food allergy: (3) Abdominal pain: PLAN: Assessment and Plan Assessment and Plan (1) Food allergy: Status: Acute Plan: 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 The diagnosis was confirmed by gastric emptying study. I suspect that she does have gastroparesis but the gastric emptying study was done and she did not have his food substances. At this time I cannot identify any trigger without follow-up and blood test and possibly repeating her gastric emptying study. We would include allergy testing along with some autoimmune testing for diseases such as Sjogren syndrome to see if there are any disease processes that would contribute to her developing idiopathic gastroparesis not associated with diabetes. And electrogastrography,by gastric endoscopy/histology, and finally by allergy tests. (2) Transaminitis: Status: Acute Plan: COMP METABOLIC GLU 92 70-99 mg/dL BUN 17 4-19 mg/dL CREAT,SERUM 0.73 0.70-1.20 mg/dL eGFR 86 >60 mL/min/1.73m2 CKD-EPI Creatinine Equation (2020) BUN/CRE 23.1 H 10-20 RATIO T PROT 7.5 5.9-8.4 g/dL ALB 4.5 3.4-4.8 g/dL GLOB 3.1 2.2-4.2 g/dL A/G 1.5 0.9-2.4 RATIO Calcium 9.6 7.6-11.0 mg/dL AST 42 H <=31 U/L ALK PHOS 67 35-104 U/L ALT 36 H <=34 U/L T BILI 0.43 0.00-1.30 mg/dL NA 139 133-145 mmol/L Potassium 3.9 3.3-5.1 mmol/L CL 104 98-108 mmol/L CO2 25.7 21.0-32.0 mmol/L GAP 9 5-15 C-REACTIVE PROT < 3.00 0.0-3.0 mg/L Vitamin B12 660 180-914 pg/mL Grayscale and color Doppler imaging of the right upper quadrant was performed. [employer] S-shear waveelastography was performed for non-invasive assessment of liver [...] 2020 SRU criteria, this rules out compensated advancedchronic liver disease in the absence of other known clinical signs. If there are known clinical signs, further testing may be needed for confirmation. 3. 1.5 cm cystic focus associated with the CBD, unclear if this reflects fusiform dilatation of theCBD or a true cystic lesion. Upstream CBD appears normal in caliber. Choledochal cyst is within the differential. Recommend MRI abdomen with and without contrast, and with MRCP. The differential diagnosis for mildly elevated transaminitis over 10-year periodonly 1 times greater than upper limit of normal is lean Sapp as her BMI is 25. Also logical diagnosis would be muscle enzyme increase secondary to medications or underlying muscle inflammatory disease. Recommend vitaminE 400- 800 nationalunits. Repeat FibroScan in a year. Ultrasound also shows a 1.5 cm possible cystic focus associated with the CBD which would be a type I choledochal cyst versus just a fusiform dilation of the CBD. We will get an MRI with and without contrast. (3) Food intolerance in adult: Status: Acute Plan: For a food intolerance we will try to desensitize her with her protein intolerance at this time. She will take cetirizine 10 mg p.o. daily plus prednisone 20 mg and famotidine 20 mg for a week. The next week she will only take the prednisone and famotidine and then after that she will only take pred nisone for the next week and stop all medications to the fourth week. She will call and give us an update to see how the medication recommendations are working. After that she will try it with tree nuts. Medications: New prednisone 20 mg PO QDAY 30 tabs 1RF 30 days famotidine 20 mg PO QDAY 30 tabs 1RF cetirizine 10 mg PO QDAY 30 tabs 1RF 11/17/24 0652 Cosigner Signature (if applicable): CC: Dr. Radha Rodas DO; Alejandro Roy DO~ Signed [facility]06-18-2025 [facility] Medical Records Department [address] [place] [address] History Physical Exam 11/17/24 0649 MR#: [id number] Acct: [id number] Name: OLGA STAFFORD Rep #: [id number] : 1950 74 From: Alejandro Roy DO PCP: Dr. Radha Rodas DO Status:[facility] Location: [place] [address] HPI - General General Date of Admission: 11/17/24 Date of Service: 11/17/24 Chief Complaint: Evaluation of nausea and vomiting HPI Narrative OLGA STAFFORD, is a 74 F who presents nausea and vomiting *BGI established 2.3.25 pt reports that for [...] she underwent imaging by her PCP at [facility] [place] that showed a large amount of stool and delayed gastric emptying on a gastric emptying study. From 2013 and 2021 she had random bouts of vomiting probably eating types of foods such as, chickpeas, fish, pepitas, black beans, pecans and walnuts. Her treatment up until 2021 was food avoidance. In July 2021 she had saw an decision support analyst at previous clinic and was diagnosed with food protein induced enterocolitis syndrome. Treatment was recommended In May 2024 she had breast spinach salad and had the same reaction. Up until that time avoiding those other foods that cause the problem was successful. However because of this new episode she came in for consultation. Referred to hematology for elevated IgG levels US and elastography 09.06.24 hepatic measurement 17cm with fatty infiltration, stiffness measures 6.8kPa OV 5.19.25 pt reports that she has not eaten any foods that have caused an episode, but states that she is feeling discouraged with not having any answers or treatment for her symptoms. Pt reports she is having a bm every 2-3 days and takes Miralax as needed. [facility] Medical History Wears glasses Post-menopausal Alcohol use Arthritis Injury of head and neck Loss of consciousness Non-smoker Knee pain Home Medications ???Medication ???Instructions ???Recorded ???Last Taken ???Type cetirizine 10 mg tablet 10 mg PO QDAY #30 tabs 10/18/24 Rx diphenhydramine HCl 25 mg capsule 25 mg PO QHS 11/15/24 11/16/24 Hi story (Aler-Cap) Allergy/AdvReac Type Severity Reaction Status Date / Time Penicillins Allergy Hives Verified 11/17/24 05:55 Family History Mother Hypertension CVA (cerebral vascular accident) Father Hypertension Prostate cancer Surgical History History of appendectomy Hx of appendectomy Social History Smoking Status: Never smoker alcohol intake: current alcohol intake frequency: holidays/special occasions only substance use type: does not use what type of physical activity do you participate in: walking and bicycling ROS Constitutional Constitutional: Denies fatigue, fever(s), poor appetite, weight gain or weight loss Gastrointestinal Gastrointestinal: Denies belching, bloating, change in bowel habits, change in stool character, chewing difficulty, coffee ground emesis, constipation, cramping, diarrhea, dyspepsia, dysphagia, early satiety, excessive flatus, fecal incontinence, heartburn, hematemesis, hematochezia, hemorrhoids, loose stools, melena, nausea, odynophagia, rectal bleeding, tenesmus, vomiting or weight changes Vital Signs Vital Signs Vital Signs: 11/17/24 05:55 11/17/24 05:55 11/17/24 06:29 Temperature 97.3 F L 97.3 F L Temperature Source Temporal Pulse Rate 52 L 52 L Respiratory Rate 12 12 Respiratory Pattern Normal Blood Pressure 126/75 H 126/75 H Blood Pressure Mean 92 Blood Pressure Source Monitor Blood Pressure Position Semi-Fowlers Blood Pressure Location Left Arm Pulse Ox 98 98 Oxygen Delivery Method Room Air Room Air Weight Weight: 125 lb 10.616 oz Body Mass Index (BMI) 22.9 Physical Exam Const alert, oriented x3, no apparent distress and healthy appearing General Appearance: cooperative GI normal to inspection, nondistended, normoactive bowel sounds, soft (more content not included)...[facility]06-18-2025 Consult note [facility] Medical Records Department [address] [place] [address] Pre-Anesthesia Evaluation 11/17/24623 MR#: [id number] Acct: [id number] Name: OLGA STAFFORD Rep #:[id number] : 1950 74 From: Usman Peguero MD PCP: Dr. Radha Rodas, DO Status:REG [facility] [place] [facility] Race: C Location: [place] [address] ASA Classification* ASA Classification ASA Classification: 2 Assessment & Plan Anesthesia* Anesthesia Assessment Anesthesia Assessment: Discussed sedation and/or anesthesia options, risks, benefits, and alternatives with patient/parents/legal guardian/POA. Questions invited. The patient/parents/legal guardian/POA seems to understand and agrees to proceedwith anesthesia plan. Reviewed the physical assessment, medical history, allergy history and patient home medications list prior to surgery/procedure/anesthetic and documented any changes. Performed airway and anesthesia risk assessments. Anesthesia Type Anesthesia Type: MAC History Source History Obtained from:: Patient and Chart Anesthesia Focused Assessment* Temperature: 97.3 F Pulse Rate: 52 Blood Pressure: 126/75 Respiratory Rate: 12 Pulse Ox: 98 Oxygen Delivery Method: Room Air Airway Assessment Mouth opens: >3 cm Mallampati Score: I Teeth Condition: Caps/Crowns (Patient has several crowns. They are all tight.) Neck Range of motion (ROM): Limited ROM (Somewhat decreased extension) Labs Anesthesia Preop lab: CBC WBC 4.5 K/mm3 (4.4-11.0) 10/14/24 14:04 10/14/24 RBC 4.35 M/mm3 (4.2-5.4) 10/14/24 14:04 10/14/24 Hgb 12.8 g/dL (12.0-15.0) 10/14/24 14:04 10/14/24 Hct 37.4 % (37-47) 10/14/24 14:04 10/14/24 Plt Count 174 K/mm3 (150-450) 10/14/24 14:04 10/14/24 CHEMISTRY Potassium 3.9 mmol/L (3.3-5.1) 10/14/24 14:04 10/14/24 Sodium 139 mmol/L (133-145) 10/14/24 14:04 10/14/24 Magnesium 2.3 mg/dL (1.6-2.6) 02/13/22 16:13 02/13/22 BUN 17 mg/dL (4-19) 10/14/24 14:04 10/14/24 Creatinine 0.73 mg/dL (0.70-1.20) 10/14/24 14:04 10/14/24 Glucose 92 mg/dL (70-99) 10/14/24 14:04 10/14/24 TSH 3.540 uIU/mL (0.358-3.740) 05/18/24 06:11 05/02 12/23 COAG Pre-Assessment Diagnosis/Proposed Procedure Planned Operative Procedure(s): EGD Anesthesia History Anesthesia History - public relations supervisor: Anesthesia History - public relations supervisor Hx Hospitalization No 11/15/24 13:17 Any Problems With Anesthesia No 11/15/24 13:17 Cholinesterase deficiency No 11/15/24 13:17 You/Your Family Experience No 11/15/24 13:17 fever (hyperthermia) with Relationship Recent Exposure to Contagious No 11/17/24 05:55 Disease Does patient have nerve No 11/15/24 13:17 stimulator Patient instructed to have device shut off --Does patient have Pacemaker No 11/17/24 05:55 or ICD? When Was Last Pacemaker Check QUESTION #4 FULL TEXT: You/Your Family Experience fever (hyperthermia) with Anesthesia Last Oral Intake Last Oral intake: Last Oral Intake NPO since 21:00 11/17/24 05:55 Meds taken in AM with sips of No 11/17/24 05:55 water? Meds patient instructed to take am of surgery PONV PONV - public relations supervisor: PONV - public relations supervisor Female Yes 11/15/24 13:17 HX of Motion Sickness Yes 11/15/24 13:17 HX of N/V After Surgery No 11/15/24 13:17 Non-Smoker Yes 11/15/24 13:17 Duration of Surgery greater No 11/15/24 13:17 than 60 minutes Number of Risk Factors 3 11/15/24 13:17 PONV Score Moderate Risk 11/15/24 13:17 Height & Weight Height & Weight: Anesthesia: Height & Weight Height 5 ft 2 in 11/17/24 05:55 Weight: 57 kg 11/17/24 05:55 Body Mass Index (BMI) 22.9 11/17/24 05:55 Respiratory Assessment Respiratory Assessment - public relations supervisor: Respiratory Tract Infection Hx - public relations supervisor Hx Respiratory Tract Infection No 11/15/24 13:17 STOP Sleep Apnea STOP Sleep Apnea - public relations supervisor: STOP Sleep Apnea - public relations supervisor Hx Hypertension No 11/15/24 13:17 Hx Sleep Apnea No 11/15/24 13:17 CPAP No 11/15/24 13:17 BIPAP No 11/15/24 13:17 Do you snore loudly (louder No 11/15/24 13:17 than talking or can be heard Do you often feel tired/ No 11/15/24 13:17 fatigued/ sleepy during daytime? Has anyone observed you stop No 11/15/24 13:17 breathing during sleep? STOP Results Negative 11/15/24 13:17 QUESTION #5 FULL TEXT : Do you snore loudly (louder than talking or can be heard through closeddoors)? Tobacco Use History Tobacco Use History - public relations supervisor: Tobacco Use History - public relations supervisor Tobacco Use Smoking Status Never smoker 11/15/24 13:17 Hx Tobacco Use No 11/15/24 13:17 Years Smoking Packs Smoked per Day Smoking Cessation Date was within the last 15 years Hx Smoking Cessation Date Hx Smoking Cessation Counseling Hematologic Medial History Hematologic Hx - public relations supervisor: Hematologic Medical Hx - public address announcer Hx of Blood Transfusion No 11/15/24 13:17 Hx of Transfusion in last 3 No 11/15/24 13:17 Months Date of Last Transfusion (if within last 3 months) Ever experience any problems No 11/15/24 13:17 with transfusion(s)? Specify any problems Hx of Preganancy in last 3 No 11/15/24 13:17 Months Nurse Filling Out Transfusion VCHRISTIN 11/15/24 13:17 & Questions: Date: 11/15/24 11/15/24 13:17 Time: 13:18 11/15/24 13:17 Patient unable to answer at this time (ie. confused, unrespo /Reproduction History /Reproductive History - public relations supervisor: /Reproductive Hx- public relations supervisor Hx Now Gestational Age (in weeks): EDC: Hx Hx Para Hx Section SAB Active Medications Active Medications: Current Medications Generic Name Dose Route Start Last Admin Trade Name Freq PRN Reason Stop Dose Admin Lactated Ringer's 1,000 mls @ 15 mls/hr 11/17/24 05:45 11/17/24 06:06 IV 15 mls/hr .Q48H BENITA Administration PFSH Medical History Wears glasses Post-menopausal Alcohol use Arthritis Injury of head and neck Loss of consciousness Non-smoker Knee pain Home Medications ?Medication ?Instructions ?Recorded ?Last Taken ?Type cetirizine 10 mg tablet 10 mg PO QDAY #30 tabs 10/1811/16/24 Rx diphenhydramine HCl 25 mg capsule 25 mg PO QHS 5 11/16/24 History (Aler-Cap) Allergy/AdvReac Type Severity Reaction Status Date / Time Penicillins Allergy Hives Verified 11/17/24 05:55 Family History Mother Hypertension CVA (cerebral vascular accident) Father Hypertension Prostate cancer Surgical History History of appendectomy Hx of appendectomy Social History Smoking Status: Never smoker alcohol intake: current alcohol intake frequency: holidays/special occasions only substance use type: does not use what type of physical activity do you participate in: walking and bicycling Review of Systems (Anesthesia) ROS Narrative System reviewed and no additional complaints, except as documented. 11/17/24 0629 luli CORADO> Date _ Usman Peguero MD Cosigner Signature: Date CC: ~ Signed [facility]05-19-2025 Evaluation note* Diagnosis Onset Date Resolution Status Admit Date Food allergy acute October 18 8:27am Food intolerance in adult acute October 18, 2024 8:27am Transaminitis acute October 18, 2 025 8:27am Elevated serum immunoglobuli n free light chains chronic October 21, 2024 1:57pm Hypergammaglobulinemia, unspecified chronic October 21, 2024 1 :57pm Liver fibrosis chronic October 21, 2024 1:57pm Abdominal pain acute November 17, 2024 5:24am Food allergy acute November 17, 2 025 5:24am Food intolerance in adult acute November 17, 2024 5:24am [facility] Work Phone: [phone] Evaluation note* Diagnosis Onset Date Resolution Status Admit Date Food allergy acute October 18 8:27am Food intolerance in adult acute October 18, 2024 8:27am Transaminitis acute October 18, 2 025 8:27am Elevated serum immunoglobuli n free light chains chronic October 21, 2024 1:57pm Liver fibrosis chronic October 21, 2024 1:57pm Hypergammaglobulinemia, unspecified resolved October 21, 2024 1 :57pm Abdominal pain acute November 17, 2024 5:24am Food allergy acute November 17, 2 025 5:24am Food intolerance in adult acute November 17, 2024 5:24am Food allergy acute January 27, 2025 2:55pm Food intolerance in adult acute January 27, 2025 2:55pm Transaminitis acute December 2:55pm Elevated serum immunoglobuli n free light chains chronic January 1:25pm Hypergammaglobulinemia, unspecified resolved February 10, 2025 1:25pm [facility] Work Phone: 1(810) 126-516804-11-2025 Radiology Diagnostic study note [facility] Imaging Services [address] [place] [address] Bone Survey Comp(Axial&Append) MR#: [id number] Acct: [id number] Name: OLGA STAFFORD Rep #: [id number] : 1950 F 74 From: Margret Gutierrez MD PCP: Dr. Radha Rodas DO Status: REG CLI Study:Bone Survey Comp(Axial&Append) Date of Exam: 09/08/24 Exam# [id number] Ordering Dr: Kevin Santos MD EXAM: XR [...] Santos MD; Dr. Radha Rodas DO ~ Engine Tester: Signed [place] [address]-07-2025 Radiology Diagnostic study note [facility] Imaging Services [address] [place] [id number] ABD Limited w/ Elastography MR#: [id number] Acct: [id number] Name: OLGA STAFFORD Rep #: [id number] : 1950 F 74 From: Margret Stephens MD PCP: Dr. Radha Rodas, DO Status: REG CLI Study:ABD Limited w/ Elastography Date of Exa m: 09/06/24 Exam# [id number] Ordering Dr: Kevin Santos MD PROCEDURE: ABD LIMITED W/ ELASTOGRAPHY (USABDLELPARO), 09/06/2024 REASON FOR EXAM: HYPERGAMMAGLOBULINEMIA- R/O LIVER DISEASE COMPARISON: None TECHNIQUE: Grayscale and color Doppler imaging of the right upper quadrant was performed. [employer] S-shear waveelastography was performed for non-invasive assessment of liver [...] 2020 SRU criteria, this rules out compensated advancedchronic liver disease in the absence of other known clinical signs. If there are known clinical signs, further testing may be needed for confirmation. 3. 1.5 cm cystic focus associated with the CBD, unclear if this reflects fusiform dilatation of theCBD or a true cystic lesion. Upstream CBD appears normal in caliber. Choledochal cyst is within the differential. Recommend MRI abdomen with and without contrast, and with MRCP. 4. Additional description as above. Assessment is per the Update to the SRU Liver Elastography Consensus Statement (2020) Note that the above assessment of liver fibrosis is vendor-neutral and intended for use in fibrosisrelated to viral etiologies and non-alcoholic fatty-liver disease [...] (15kPa): Significant fibrosis / cirrhosis Reading Location: [id number] CC: Dr. Meet Santos MD; Dr. Radha Rodas DO ~ Engine Tester: Signed [facility]2025 Evaluation note* Diagnosis Onset Date Resolution Status Admit Date Hypergammaglobulinemia, unspecified chronic August 26, 2024 2:46pm Food allergy acute October 18 25 8:27am Food intolerance in adult acute October 18, 2024 8:27am Transaminitis acute October 18, 025 8:27am Elevated serum immunoglobuli n free light chains chronic October 21, 2024 1:57pm Hypergammaglobulinemia, unspecified chronic October 21, 2024 1 :57pm Liver fibrosis chronic October 21, 2024 1:57pm Abdominal pain acute November 17, 2024 5:24am Food allergy acute November 17 5:24am Food intolerance in adult acute November 17, 2024 5:24am [facility] Work Phone: [phone]) 875-606402-03-2025 Evaluation note* Diagnosis Onset Date Resolution Status Admit Date Food allergy acute July 9:18am Hypergammaglobulinemia, unspecified acute August 26, 2024 2:46pm [facility] Work Phone: [phone]) 189-808803-08-2022 NoteHNO ID: [id number] Author: Timur Quezada MD Service: ? Author [...] reaction to insect sting. FOOD ALLERGY: See [place] LAT[place]: The patient does not have a [...] only) - PAST SURGICAL HISTORY OF 2005 [facility], Dr. Shoemaker (normal) FAMILY HISTORY: Allergic rhinitis:no. Asthma: no. Eczema: no. Cystic fibrosis: no. Immunodeficiency: no. 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 Radha Rodas, DO Status:[facility] Y Race: C Location: [place] [address] ASA Classification* ASA Classification ASA Classification: 2 Assessment & Plan Anesthesia* Anesthesia Assessment Anesthesia Assessment: Discussed sedation and/or anesthesia options, risks, benefits, and alternatives with patient/parents/legal guardian/POA. Questions invited. The patient/parents/legal guardian/POA seems to understand and agrees to proceedwith anesthesia plan. Reviewed the physical assessment, medical history, allergy history and patient home medications list prior to surgery/procedure/anesthetic and documented any changes. Performed airway and anesthesia risk assessments. Anesthesia Type Anesthesia Type: MAC History Source History Obtained from:: Patient and Chart Anesthesia Focused Assessment* Temperature: 97.3 F Pulse Rate: 52 Blood Pressure: 126/75 Respiratory Rate: 12 Pulse Ox: 98 Oxygen Delivery Method: Room Air Airway Assessment Mouth opens: >3 cm Mallampati Score: I Teeth Condition: Caps/Crowns (Patient has several crowns. They are all tight.) Neck Range of motion (ROM): Limited ROM (Somewhat decreased extension) Labs Anesthesia Preop lab: CBC WBC 4.5 K/mm3 (4.4-11.0) 10/14/24 14:04 10/14/24 RBC 4.35 M/mm3 (4.2-5.4) 10/14/24 14:04 10/14/24 Hgb 12.8 g/dL (12.0-15.0) 10/14/24 14:04 10/14/24 Hct 37.4 % (37-47) 10/14/24 14:04 10/14/24 Plt Count 174 K/mm3 (150-450) 10/14/24 14:04 10/14/24 CHEMISTRY Potassium 3.9 mmol/L (3.3-5.1) 10/14/24 14:04 10/14/24 Sodium 139 mmol/L (133-145) 10/14/24 14:04 10/14/24 Magnesium 2.3 mg/dL (1.6-2.6) 02/13/22 16:13 02/13/22 BUN 17 mg/dL (4-19) 10/14/24 14:04 10/14/24 Creatinine 0.73 mg/dL (0.70-1.20) 10/14/24 14:04 10/14/24 Glucose 92 mg/dL (70-99) 10/14/24 14:04 10/14/24 TSH 3.540 uIU/mL (0.358-3.740) 05/18/24 06:11 05/02 12/23 COAG Pre-Assessment Diagnosis/Proposed Procedure Planned Operative Procedure(s): EGD Anesthesia History Anesthesia History - public relations supervisor: Anesthesia History - public relations supervisor Hx Hospitalization No 11/15/24 13:17 Any Problems With Anesthesia No 11/15/24 13:17 Cholinesterase deficiency No 11/15/24 13:17 You/Your Family Experience No 11/15/24 13:17 fever (hyperthermia) with Relationship Recent Exposure to Contagious No 11/17/24 05:55 Disease Does patient have nerve No 11/15/24 13:17 stimulator Patient instructed to have device shut off --Does patient have Pacemaker No 11/17/24 05:55 or ICD? When Was Last Pacemaker Check QUESTION #4 FULL TEXT: You/Your Family Experience fever (hyperthermia) with Anesthesia Last Oral Intake Last Oral intake: Last Oral Intake NPO since 21:00 11/17/24 05:55 Meds taken in AM with sips of No 11/17/24 05:55 water? Meds patient instructed to take am of surgery PONV PONV - public relations supervisor: PONV - public relations supervisor Female Yes 11/15/24 13:17 HX of Motion Sickness Yes 11/15/24 13:17 HX of N/V After Surgery No 11/15/24 13:17 Non-Smoker Yes 11/15/24 13:17 Duration of Surgery greater No 11/15/24 13:17 than 60 minutes Number of Risk Factors 3 11/15/24 13:17 PONV Score Moderate Risk 11/15/24 13:17 Height & Weight Height & Weight: Anesthesia: Height & Weight Height 5 ft 2 in 11/17/24 05:55 Weight: 57 kg 11/17/24 05:55 Body Mass Index (BMI) 22.9 11/17/24 05:55 Respiratory Assessment Respiratory Assessment - public relations supervisor: Respiratory Tract Infection Hx - public relations supervisor Hx Respiratory Tract Infection No 11/15/24 13:17 STOP Sleep Apnea STOP Sleep Apnea - public relations supervisor: STOP Sleep Apnea - public relations supervisor Hx Hypertension No 11/15/24 13:17 Hx Sleep Apnea No 11/15/24 13:17 CPAP No 11/15/24 13:17 BIPAP No 11/15/24 13:17 Do you snore loudly (louder No 11/15/24 13:17 than talking or can be heard Do you often feel tired/ No 11/15/24 13:17 fatigued/ sleepy during daytime? Has anyone observed you stop No 11/15/24 13:17 breathing during sleep? STOP Results Negative 11/15/24 13:17 QUESTION #5 FULL TEXT : Do you snore loudly (louder than talking or can be heard through closed doors)? Tobacco Use History Tobacco Use History - public relations supervisor: Tobacco Use History - public relations supervisor Tobacco Use Smoking Status Never smoker 11/15/24 13:17 Hx Tobacco Use No 11/15/24 13:17 Years Smoking Packs Smoked per Day Smoking Cessation Date was within the last 15 years Hx Smoking Cessation Date Hx Smoking Cessation Counseling Hematologic Medial History Hematologic Hx - public relations supervisor: Hematologic Medical Hx - public address announcer Hx of Blood Transfusion No 11/15/24 13:17 Hx of Transfusion in last 3 No 11/15/24 13:17 Months Date of Last Transfusion (if within last 3 months) Ever experience any problems No 11/15/24 13:17 with transfusion(s)? Specify any problems Hx of Preganancy in last 3 No 11/15/24 13:17 Months Nurse Filling Out Transfusion VCHRISTIN 11/15/24 13:17 & Questions: Date: 11/15/24 11/15/24 13:17 Time: 13:18 11/15/24 13:17 Patient unable to answer at this time (ie. confused, unrespo /Reproduction History /Reproductive History - public relations supervisor: /Reproductive Hx- public relations supervisor Hx Now Gestational Age (in weeks): EDC: Hx Hx Para Hx Section SAB Active Medications Active Medications: Current Medications Generic Name Dose Route Start Last Admin Trade Name Freq PRN Reason Stop Dose Admin Lactated Ringer's 1,000 mls @ 15 mls/hr 11/17/24 05:45 11/17/24 06:06 IV 15 mls/hr .Q48H BENITA Administration PFSH Medical History Wears glasses Post-menopausal Alcohol use Arthritis Injury of head and neck Loss of consciousness Non-smoker Knee pain Home Medications ?Medication ?Instructions ?Recorded ?Last Taken ?Type cetirizine 10 mg tablet 10 mg PO QDAY #30 tabs 10/1811/16/24 Rx diphenhydramine HCl 25 mg capsule 25 mg PO QHS 5 11/16/24 History (Aler-Cap) Allergy/AdvReac Type Severity Reaction Status Date / Time Penicillins Allergy Hives Verified 11/17/24 05:55 Family History Mother Hypertension CVA (cerebral vascular accident) Father Hypertension Prostate cancer Surgical History History of appendectomy Hx of appendectomy Social History Smoking Status: Never smoker alcohol intake: current alcohol intake frequency: holidays/special occasions only substance use type: does not use what type of physical activity do you participate in: walking and bicycling Review of Systems (Anesthesia) ROS Narrative System reviewed and no additional complaints, except as documented. 11/17/24628 <Electronically signed by Usman rockwell MD> Date _ Usman Ortizign Signature: Date CC: ~ Signed [facility] Work Phone: Consult note Author Tomasz Hagan [facility] Note Date/Time November 17, 2024 7:12 am [facility] Medical Records Department [address] [place] [id number] Anesthesia Postop Eval I 11/17/24710 MR#: [id number] Acct: [id number] Name: OLGA STAFFORD Rep #:[id number] : 1950 74 From: Tomasz Hagan PCP: Dr. Radha Rodas, DO Status:REG [facility] [place] Race: C Location: [place] [address] Anesthesia: Postop Eval I Current Vital Signs Temperature: 97.8 F Pulse Rate: 57 Blood Pressure: 89/54 Respiratory Rate: 16 Pulse Ox: 97 Oxygen Delivery Method: Room Air Assessment Airway patent: Yes Spontaneous unlabored respirations: Yes Mental status: Asleep nausea: No Vomiting: No Anesthesia Complication: No Fluid Hydration Crystalloid volume administer (ml): 300 Total IV fluid infused: 300 Progress Note Anesthesia document: Postop Eval 1 completed: Yes 11/17/24711 <Electronically signed by Tomasz Hagan > Date _ Tomasz Das Signature: Date CC: ~ Signed [facility] Work Phone: Evaluation noteNo assessment information available [facility] Work Phone: Evaluation note* Diagnosis Onset Date Resolution Status Pes anserine bursitis acute [facility] Work Phone: Evaluation note* Diagnosis Onset Date Resolution Status Pes anserine bursitis acute Urinary tract infection acut e [facility] Work Phone: Evaluation note* Diagnosis Onset Date Resolution Status Bug bite without infection a cute [facility] Work Phone: History and physical note Author Alejandro Friend [facility] Note Date/Time November 17, 2024 6:52 am [facility] Medical Records Department [address] [place] [address] History & Physical Exam 11/17/24 0649 MR#: [id number] Acct: [id number] Name: OLGA STAFFORD Rep #:[id number] : 1950 74 From: Alejandro Roy DO PCP: Dr. Radha Rodas DO Status:[facility] Location: [place] [address] HPI - General General Date of Admission: 11/17/24 Date of Service: 11/17/24 Chief Complaint: Evaluation of nausea and vomiting HPI Narrative OLGA STAFFORD, is a 74 F who presents nausea and vomiting *BGI established 2.3.25 pt reports that for the last several years she has been having random episodes of vomiting 4 hours after she has eaten certain foods. ptreports that she has had scopes and a [...] she underwent imaging by her PCP at [facility] [place] that showed a large amount of stool and delayed gastric emptying on a gastric emptying study. From 2013 and 2021 she had random bouts of vomiting probably eating types of foods such as, chickpeas, fish, pepitas, black beans, pecans and walnuts. Her treatment up until 2021 was food avoidance. In July 2021 she had saw an decision support analyst at previous clinic and was diagnosed withfood protein induced enterocolitis syndrome. Treatment was recommended In May 2024 she had breast spinach salad and had the same reaction. Up until that time avoiding those other foods that cause the problem was successful. However because of this new episode she came in for consultation. Referred to hematology for elevated IgG levels US and elastography 4.7.25 hepatic measurement 17cm with fatty infiltration,stiffness measures 6.8kPa OV 5.19.25 pt reports that she has not eaten any foods that have caused an episode, but states that she is feeling discouraged with not having any answers or treatment for her symptoms. Pt reports she is having a bm every 2-3 days and takes Miralax as needed. [facility] Medical History Wears glasses Post-menopausal Alcohol use Arthritis Injury of head and neck Loss of consciousness Non-smoker Knee pain Home Medications ?Medication ?Instructions ?Recorded ?Last Taken ?Type cetirizine 10 mg tablet 10 mg PO QDAY #30 tabs 10/1811/16/24 Rx diphenhydramine HCl 25 mg capsule 25 mg PO QHS 5 11/16/24 History (Aler-Cap) Allergy/AdvReac Type Severity Reaction Status Date / Time Penicillins Allergy Hives Verified 11/17/24 05:55 Family History Mother Hypertension CVA (cerebral vascular accident) Father Hypertension Prostate cancer Surgical History History of appendectomy Hx of appendectomy Social History Smoking Status: Never smoker alcohol intake: current alcohol intake frequency: holidays/special occasions only substance use type: does not use what type of physical activity do you participate in: walking and bicycling ROS Constitutional Constitutional: Denies fatigue, fever(s), poor appetite, weight gain or weight loss Gastrointestinal Gastrointestinal: Denies belching, bloating, change in bowel habits, change in stool character, chewing difficulty, coffee ground emesis, constipation, cramping, diarrhea, dyspepsia, dysphagia, early satiety, excessive flatus, fecalincontinence, heartburn, hematemesis, hematochezia, hemorrhoids, loose stools, melena, nausea, odynophagia, rectal bleeding, tenesmus, vomiting or weight changes Vital Signs Vital Signs Vital Signs: 11/17/24 05:55 11/17/24 05:55 11/17/24 06:29 Temperature 97.3 F L 97.3 F L Temperature Source Temporal Pulse Rate 52 L 52 L Respiratory Rate 12 12 Respiratory Pattern Normal Blood Pressure 126/75 H 126/75 H Blood Pressure Mean 92 Blood Pressure Source Monitor Blood Pressure Position Semi-Fowlers Blood Pressure Location Left Arm Pulse Ox 98 98 Oxygen Delivery Method Room Air Room Air Weight Weight: 125 lb 10.616 oz Body Mass Index (BMI) 22.9 Physical Exam Const alert, oriented x3, no apparent distress and healthy appearing General Appearance: cooperative GI normal to inspection, nondistended, normoactive bowel sounds, soft to palpation,non-tender and non-distended Percussion: normal to percussion Rectal Exam: deferred Assessment & Plan Assessment/Plan (1) Food intolerance in adult: (2) Food allergy: (3) Abdominal pain: PLAN: Assessment and Plan Assessment and Plan (1) Food allergy: Status: Acute Plan: 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 The diagnosis was confirmed by gastric emptying study. I suspect that she does have gastroparesis but the gastric emptying study was done and she did not have his food substances. At this time I cannot identify any trigger without follow-up and blood test and possibly repeating her gastric emptying study. We would include allergy testing along with some autoimmune testing for diseases such as Sjogren syndrome to see if there are any disease processes that would contribute to her developing idiopathic gastroparesis not associated with diabetes. And electrogastrography,by gastric endoscopy/histology, and finally by allergy tests. (2) Transaminitis: Status: Acute Plan: COMP METABOLIC GLU 92 70-99 mg/dL BUN 17 4-19 mg/dL CREAT,SERUM 0.73 0.70-1.20 mg/dL eGFR 86 >60 mL/min/1.73m2 CKD-EPI Creatinine Equation (2020) BUN/CRE 23.1 H 10-20 RATIO T PROT 7.5 5.9-8.4 g/dL ALB 4.5 3.4-4.8 g/dL GLOB 3.1 2.2-4.2 g/dL A/G 1.5 0.9-2.4 RATIO Calcium 9.6 7.6-11.0 mg/dL AST 42 H <=31 U/L ALK PHOS 67 35-104 U/L ALT 36 H <=34 U/L T BILI 0.43 0.00-1.30 mg/dL NA 139 133-145 mmol/L Potassium 3.9 3.3-5.1 mmol/L CL 104 98-108 mmol/L CO2 25.7 21.0-32.0 mmol/L GAP 9 5-15 C-REACTIVE PROT < 3.00 0.0-3.0 mg/L Vitamin B12 660 180-914 pg/mL Grayscale and color Doppler imaging of the right upper quadrant was performed. [employer] S-shear wave elastography was performed for non-invasive [...] with and without contrast, and with MRCP. The differential diagnosis for mildly elevated transaminitis over 10-year periodonly 1 times greater than upper limit of normal is lean Sapp as her BMI is 25. Also logical diagnosis would be muscle enzyme increase secondary to medications or underlying muscle inflammatory disease. Recommend vitamin E 400-800 nationalunits. Repeat FibroScan in a year. Ultrasound also shows a 1.5 cm possible cystic focus associated with the CBD which would be a type I choledochal cyst versus just a fusiform dilation of the CBD. We will get an MRI with and without contrast. (3) Food intolerance in adult: Status: Acute Plan: For a food intolerance we will try to desensitize her with her protein intolerance at this time. She will take cetirizine 10 mg p.o. daily plus prednisone 20 mg and famotidine 20 mg for a week. The next week she will only take the prednisone and famotidine and then after that she will only take prednisone for the next week and stop all medications to the fourth week. She will call and give us an update to see how the medication recommendations are working. After that she will try it with tree nuts. Medications: New prednisone 20 mg PO QDAY 30 tabs 1RF 30 days famotidine 20 mg PO QDAY 30 tabs 1RF cetirizine 10 mg PO QDAY 30 tabs 1RF 11/17/24 0652 <Electronically signed by Alejandro Roy DO> Cosigner Signature (if applicable): CC: Dr. Radha Rodas, ; Alejandro Roy, ~ Signed [facility] Work Phone: Reason for referral (narrative)No reason for referral information availableW[facility] Work Phone: Summary Purpose Family History No Family History Records Found Relationship Condition Age at Onset Recorded Date/T micheal mother Hypertension Unknown Cerebrovascular accident (CVA) Unknown father Hypertension Unknown Malignant neoplasm of prostate Unknown Advance Directives No Advanced Directives Records Found Advance Directive Response Recorded Date/ Time Advance Directives Yes October 26 12:53am Living Will Yes October 26, 2013 1 2:53am Power of Aluminum Sheet Cutter Yes October 26, 2013 12:53am Advance Directive Response Recorded Date/ Time Advance Directives Yes October 25 11:53pm Living Will Yes October 25, 2013 1 1:53pm Power of Aluminum Sheet Cutter Yes October 25, 2013 11:53pm Advance Directive Response Recorded Date/ Time Advance Directives Yes October 26 12:53am Advance Directive Response Recorded Date/ Time Do you have a Healthcare Power of Aluminum Sheet Cutter? No November 15, 2024 1:17pm Advance Directives Yes October 18 9:32am Advance Directive Response Recorded Date/ Time Advance Directives Yes October 18 9:32am Do you have a Healthcare Power of Aluminum Sheet Cutter? No November 15, 2024 1:17pm Procedure Findings Note HNO ID: [id number] Author: Kumar Lin Service: General Surgery Author Type: Physician Type: Procedures Filed: 01/07/2019 4:51 PM Note Text: BEDSIDE PROCEDURE NOTE WOUND REPAIR Performed by: Juan Pablo Aguilar DO Authorized by: Lydia Fox MD Date/Start Time: 12/13/2018 4:30 PM Consent/[place] Protocol Written consent obtained: No, emergent procedure [...] CONCERN FOR UTI Reason for Visit Pes ansambare bursiti s Urinary tract infection Chief Complaint [...] M FU October 18, 2024 8:27a m Chief Complaint Admit Date ABNORMAL IMMUNOLOGICAL August 26, 2024 2:46pm Hypergammaglobulinemia, unspecified Apri l 2024 7:26am Hypergammaglobulinemia, unspecified Apri l 2024 11:35am MED ONC October 14, 2024 1:55p m 3 M FU October 18, 2024 8:27a m 8WKS LABS PRIOR October 21, 2024 1:57p m Reason for Visit Admit Date Hypergammaglobulinemia, unspecified Santiago h 2024 2:46pm Food allergy October 18, 2024 8:27a m Food intolerance in adult October 18, 2024 8:27am Transaminitis October 18, 2024 8:27a m Elevated serum immunoglobulin free light chains October 21, 2024 1:57pm Hypergammaglobulinemia, unspecified October 21, 2024 1:57pm Liver fibrosis October 21, 2024 1:57p m Abdominal pain November 17, 2024 5:24 am Food allergy November 17, 2024 5:24 am Food intolerance in adult November 17 5:24am Chief Complaint Admit Date ABNORMAL IMMUNOLOGICAL August 26, 2024 2:46pm Hypergammaglobulinemia, unspecified Apri l 2024 7:26am Hypergammaglobulinemia, unspecified Apri l 2024 11:35am MED ONC October 14, 2024 1:55p m 3 M FU October 18, 2024 8:27a m 8WKS LABS PRIOR October 21, 2024 1:57p m CBD dilation December 01, 2024 4:21p m Chief Complaint Admit Date MED ONC October 14, 2024 1:55p m 3 M FU October 18, 2024 8:27a m 8[facility] LABS PRIOR October 21, 2024 1:57p m CBD dilation December 01, 2024 4:21p m 3 M FU January 27, 2025 2: 55pm Reason for Visit Admit Date Food allergy October 18, 2024 8:27a m Food intolerance in adult October 18, 2024 8:27am Transaminitis October 18, 2024 8:27a m Elevated serum immunoglobulin free light chains October 21, 2024 1:57pm Hypergammaglobulinemia, unspecified October 21, 2024 1:57pm Liver fibrosis October 21, 2024 1:57p m Abdominal pain November 17, 2024 5:24 am Food allergy November 17, 2024 5:24 am Food intolerance in adult November 17 5:24am Chief Complaint Admit Date 3 M FU October 18, 2024 8:27a m 8[facility] LABS PRIOR October 21, 2024 1:57p m CBD dilation December 01, 2024 4:21p m 3 M FU January 27, 2025 2: 55pm MED ONC February 03, 2025 8:00am 4 MO, LABS PRIOR February 10, 2025 1:25pm Reason for Visit Admit Date Food allergy October 18, 2024 8:27a m Food intolerance in adult October 18, 2024 8:27am Transaminitis October 18, 2024 8:27a m Elevated serum immunoglobulin free light chains October 21, 2024 1:57pm Liver fibrosis October 21, 2024 1:57p m Hypergammaglobulinemia, unspecified October 21, 2024 1:57pm Abdominal pain November 17, 2024 5:24 am Food allergy November 17, 2024 5:24 am Food intolerance in adult November 17 5:24am Food allergy January 27, 2025 2: 55pm Food intolerance in adult January 27, 2 025 2:55pm Transaminitis January 27, 2025 2: 55pm Elevated serum immunoglobulin free light chains February 10, 2025 1:25pm Hypergammaglobulinemia, unspecified Sept ember 2024 1:25pm Additional Source Comments INFORMATION SOURCE (unrecogn ized section and content) DATE CREATED AUTHOR 12/20/2018 [facility] DATE CREATED AUTHOR AUTHOR'S ORGANIZ ATION 01/07/2019 [facility] DATE CREATED AUTHOR AUTHOR'S ORGANIZ ATION 08/28/2021 [facility] DATE CREATED AUTHOR AUTHOR'S ORGANIZ ATION 03/30/2025 [facility] Goals (unrecognized section and content) Goals may [...] DO Family Provider Active Dr. Radha Rodas , DO Primary Care Provider Active Team Status: Inactive Member Role Status Dates Dr. Radha Rodas DO Primary Care Provider, Referring P rovider Active Monique PERRY, PA Attending Provider Active Team Status: Inactive Member Role Status Dates Dr. Radha Rodas DO Primary Care Provider, Attending P rovider Active Team Status: Inactive Member Role Status [...] S tart: September 08, 2024 Dr. Radha Rodas DO Primary Care Provider Active Start: September 08, 2024 Team Status: Inactive Member Role Status Dates Dr. Meet Santos MD Attending Provider Active S tart: September 08, 2024 End: September 08, 2024 Dr. Meet Santos MD Referring Provider Active S tart: September 08, 2024 End: September 08, 2024 Dr. Radha Rodas DO Primary Care Provider Active Start: September 08, 2024 End: September 08, 2024 Team Status: Active Member Role Status Dates Dr. Meet Santos MD Attending Provider Active S tart: October 14, 2024 Dr. Meet Santos MD Referring Provider Active S tart: October 14, 2024 Dr. Radha Rodas DO Primary Care Provider Active Start: October 14, 2024 Team Status: Inactive Member Role Status Dates Dr. Radha Rodas DO Primary Care Provider Active Start: October 18, 2024 End: October 18, 2024 Dr. Radha Rodas DO Referring Provider Active St art: October 18, 2024 End: October 18, 2024 Dr. Alejandro Roy DO Attending Provider Active Start: October 18, 2024 End: October 18, 2024 Team Status: Inactive Member Role Status Dates Dr. Meet Santos MD Attending Provider Active S tart: October 21, 2024 End: October 21, 2024 Dr. Radha Rodas DO Primary Care Provider Active Start: October 21, 2024 End: October 21, 2024 Dr. Radha Rodas DO Referring Provider Active St art: October 21, 2024 End: October 21, 2024 Team Status: Inactive Member Role Status Dates Dr. Radha Rodas DO Primary Care Provider Active Start: November 17, 2024 End: November 17, 2024 Dr. Radha Rodas DO Referring Provider Active St art: November 17, 2024 End: November 17, 2024 Dr. Alejandro Roy DO Attending Provider Active Start: November 17, 2024 End: November 17, 2024 Team Status: Active Member Role Status Dates Dr. Radha Rodas DO Primary Care Provider Active Start: November 17, 2024 Dr. Radha Rodas DO Referring Provider Active St art: November 17, 2024 Dr. Alejandro Roy DO Attending Provider Active Start: November 17, 2024 Dr. Alejandro Roy DO Other Provider Active St art: November 17, 2024 Team Status: Active Member Role/Relationship Status Dates Dr. Radha Rodas DO Primary Care Provider Active Team Status: Inactive Member Role/Relationship Status Dates Dr. Meet Santos MD Attending Provider Active S tart: August 26, 2024 End: August 26, 2024 Dr. Alejandro Roy DO Referring Provider Active Start: August 26, 2024 End: August 26, 2024 Team Status: Inactive Member Role/Relationship Status Dates Dr. Meet Santos MD Attending Provider Active S tart: September 06, 2024 End: September 06, 2024 Dr. Meet Santos MD Referring Provider Active S tart: September 06, 2024 End: September 06, 2024 Dr. Radha Rodas DO Primary Care Provider Active Start: September 06, 2024 End: September 06, 2024 Team Status: Inactive Member Role/Relationship Status Dates Dr. Meet Santos MD Attending Provider Active S tart: September 08, 2024 End: September 08, 2024 Dr. Meet Santos MD Referring Provider Active S tart: September 08, 2024 End: September 08, 2024 Dr. Radha Rodas DO Primary Care Provider Active Start: September 08, 2024 End: September 08, 2024 Team Status: Active Member Role/Relationship Status Dates Dr. Meet Santos MD Attending Provider Active S tart: October 14, 2024 Dr. Meet Santos MD Referring Provider Active S tart: October 14, 2024 Dr. Radha Rodas DO Primary Care Provider Active Start: October 14, 2024 Team Status: Inactive Member Role/Relationship Status Dates Dr. Radha Rodas DO Primary Care Provider Active Start: October 18, 2024 End: October 18, 2024 Dr. Radha Rodas DO Referring Provider Active St art: October 18, 2024 End: October 18, 2024 Dr. Alejandro Roy DO Attending Provider Active Start: October 18, 2024 End: October 18, 2024 Team Status: Inactive Member Role/Relationship Status Dates Dr. Meet Santos MD Attending Provider Active S tart: October 21, 2024 End: October 21, 2024 Dr. Radha Rodas DO Primary Care Provider Active Start: October 21, 2024 End: October 21, 2024 Dr. Radha Rodas DO Referring Provider Active St art: October 21, 2024 End: October 21, 2024 Team Status: Inactive Member Role/Relationship Status Dates Dr. Radha Rodas DO Primary Care Provider Active Start: November 17, 2024 End: November 17, 2024 Dr. Radha Rodas DO Referring Provider Active St art: November 17, 2024 End: November 17, 2024 Dr. Alejandro Roy DO Attending Provider Active Start: November 17, 2024 End: November 17, 2024 Team Status: Active Member Role/Relationship Status Dates Dr. Radha Rodas DO Primary Care Provider Active Start: November 17, 2024 Dr. Radha Rodas DO Referring Provider Active St art: November 17, 2024 Dr. Alejandro Roy DO Attending Provider Active Start: November 17, 2024 Dr. Alejandro Roy DO Other Provider Active St art: November 17, 2024 Team Status: Inactive Member Role/Relationship Status Dates Dr. Radha Rodas DO Primary Care Provider Active Start: December 01, 2024 End: December 01, 2024 Dr. Alejandro Roy DO Attending Provider Active Start: December 01, 2024 End: December 01, 2024 Dr. Alejandro Roy DO Referring Provider Active Start: December 01, 2024 End: December 01, 2024 Team Status: Active Member Role/Relationship Status Dates Dr. Meet Santos MD Attending Provider Active S tart: October 14, 2024 Dr. Meet Santos MD Referring Provider Active S tart: October 14, 2024 Dr. Radha Rodas DO Primary Care Provider Active Start: October 14, 2024 Team Status: Inactive Member Role/Relationship Status Dates Dr. Radha Rodas DO Primary Care Provider Active Start: October 18, 2024 End: October 18, 2024 Dr. Radha Rodas DO Referring Provider Active St art: October 18, 2024 End: October 18, 2024 Dr. Alejandro Roy DO Attending Provider Active Start: October 18, 2024 End: October 18, 2024 Team Status: Inactive Member Role/Relationship Status Dates Dr. Meet Santos MD Attending Provider Active S tart: October 21, 2024 End: October 21, 2024 Dr. Radha Rodas DO Primary Care Provider Active Start: October 21, 2024 End: October 21, 2024 Dr. Radha Rodas DO Referring Provider Active St art: October 21, 2024 End: October 21, 2024 Team Status: Inactive Member Role/Relationship Status Dates Dr. Radha Rodas DO Primary Care Provider Active Start: November 17, 2024 End: November 17, 2024 Dr. Radha Rodas DO Referring Provider Active St art: November 17, 2024 End: November 17, 2024 Dr. Alejandro Roy DO Attending Provider Active Start: November 17, 2024 End: November 17, 2024 Team Status: Active Member Role/Relationship Status Dates Dr. Radha Rodas DO Primary Care Provider Active Start: November 17, 2024 Dr. Radha Rodas DO Referring Provider Active St art: November 17, 2024 Dr. Alejandro Roy DO Attending Provider Active Start: November 17, 2024 Dr. Alejandro Roy DO Other Provider Active St art: November 17, 2024 Team Status: Inactive Member Role/Relationship Status Dates Dr. Radha Rodas DO Primary Care Provider Active Start: December 01, 2024 End: December 01, 2024 Dr. Alejandro Roy DO Attending Provider Active Start: December 01, 2024 End: December 01, 2024 Dr. Alejandro Roy DO Referring Provider Active Start: December 01, 2024 End: December 01, 2024 Team Status: Inactive Member Role/Relationship Status Dates Dr. Radha Rodas DO Primary Care Provider Active Start: January 27, 2025 End: January 27, 2025 Dr. Radha Rodas DO Referring Provider Active St art: January 27, 2025 End: January 27, 2025 Dr. Alejandro Roy DO Attending Provider Active Start: January 27, 2025 End: January 27, 2025 Team Status: Inactive Member Role/Relationship Status Dates Dr. Radha Rodas DO Primary Care Provider Active Start: October 18, 2024 End: October 18, 2024 Dr. Radha Rodas DO Referring Provider Active St art: October 18, 2024 End: October 18, 2024 Dr. Alejandro Roy DO Attending Provider Active Start: October 18, 2024 End: October 18, 2024 Team Status: Inactive Member Role/Relationship Status Dates Dr. Meet Santos MD Attending Provider Active S tart: October 21, 2024 End: October 21, 2024 Dr. Radha Rodas DO Primary Care Provider Active Start: October 21, 2024 End: October 21, 2024 Dr. Radha Rodas DO Referring Provider Active St art: October 21, 2024 End: October 21, 2024 Team Status: Inactive Member Role/Relationship Status Dates Dr. Radha Rodas DO Primary Care Provider Active Start: November 17, 2024 End: November 17, 2024 Dr. Radha Rodas DO Referring Provider Active St art: November 17, 2024 End: November 17, 2024 Dr. Alejandro Roy DO Attending Provider Active Start: November 17, 2024 End: November 17, 2024 Team Status: Active Member Role/Relationship Status Dates Dr. Radha Rodas DO Primary Care Provider Active Start: November 17, 2024 Dr. Radha Rodas DO Referring Provider Active St art: November 17, 2024 Dr. Alejandro Roy DO Attending Provider Active Start: November 17, 2024 Dr. Alejandro Roy DO Other Provider Active St art: November 17, 2024 Team Status: Inactive Member Role/Relationship Status Dates Dr. Radha Rodas DO Primary Care Provider Active Start: December 01, 2024 End: December 01, 2024 Dr. Alejandro Roy DO Attending Provider Active Start: December 01, 2024 End: December 01, 2024 Dr. Alejandro Roy DO Referring Provider Active Start: December 01, 2024 End: December 01, 2024 Team Status: Inactive Member Role/Relationship Status Dates Dr. Radha Rodas DO Primary Care Provider Active Start: January 27, 2025 End: January 27, 2025 Dr. Radha Rodas DO Referring Provider Active St art: January 27, 2025 End: January 27, 2025 Dr. Alejandro Roy DO Attending Provider Active Start: January 27, 2025 End: January 27, 2025 Team Status: Active Member Role/Relationship Status Dates Dr. Meet Santos MD Attending Provider Active S tart: February 03, 2025 Dr. Meet Santos MD Referring Provider Active S tart: February 03, 2025 Dr. Radha Rodas DO Primary Care Provider Active Start: February 03, 2025 Team Status: Inactive Member Role/Relationship Status Dates Dr. Radha Rodas DO Primary Care Provider Active Start: February 10, 2025 End: February 10, 2025 Dr. Radha Rodas DO Referring Provider Active St art: February 10, 2025 End: February 10, 2025 Dr. Meet Santos MD Attending Provider Active S tart: February 10, 2025 End: February 10, 2025 FOR RECORDS PERTAINING TO PATIENTS WHO ARE [...] BE BASED ON THE PRIMARY CLINICAL RECORDS. [facility]. provides no warranty or guarantee of the accuracy or completeness of information in this document.
[2025-04-01] MEDS: 0.9% Normal Saline (1000mL) 1,000 ML 150 ML IV ×2 (00:10→05:13)
[2025-04-01 00:31] LABS: Hematocrit 39.7 % (37-47); Hemoglobin 13.4 g/dL (12.0-15.0); Immature Granulocytes Count 0.010 X10^3/uL (0.0-0.0); Mean Corp Hgb Conc 33.8 g/dL (32-36); Mean Corpuscular Volume 85.0 fL (81-99); Mean Platelet Vol. 9.6 fl (6.2-12.0); NRBC Flagged by Analyzer 0 % (0-5); Platelet Count 189 K/mm3 (150-450); RBC Distribution Width CV 13.1 % (11.6-14.6); RBC Distribution Width SD 40.1 fl (35.1-43.9); Red Blood Count 4.67 M/mm3 (4.2-5.4); White Blood Count 5.5 K/mm3 (4.4-11.0)
[2025-04-01 00:52] LABS: AST(SGOT) 35 U/L (<=31); Alanine Aminotransfer ALT/SGPT 17 U/L (<=34); Albumin, Serum 4.0 g/dL (3.4-4.8); Alkaline Phosphatase 63 U/L (35-104); Amylase 2076 U/L (28-100); Anion Gap 12 (5-15); BUN 18 mg/dL (4-19); BUN/Creat Ratio 25.8 RATIO (10-20); Bilirubin, Direct 0.23 mg/dL (0.00-0.30); Calcium,Total 8.9 mg/dL (7.6-11.0); Carbon Dioxide 20.4 mmol/L (21.0-32.0); Chloride 106 mmol/L (98-108); Estimated Creatinine Clearance 51.40 ml/min (50-250); Globulin 2.8 g/dL (2.2-4.2); Glucose 168 mg/dL (70-99); Lipase > 3000 U/L (13-75); Potassium 4.0 mmol/L (3.3-5.1)
--- NOTE | 2025-04-01 00:59 | EDS_ITS ---
HPI History of Present Illness Chief Complaint: Abd Pain Informant: patient and spouse/S.O. Narrative Narrative: 75-year-old female presenting to the emergency room with upper abdominal pain and vomiting. Patient underwent EGD evaluation with Dr. Kirill stephens. She was found to have choledocholithiasis and a biliary stent was placed. She states that she went home and was doing well. Tonight around 1715 hrs. she had some chicken and rice soup. She went to bed at around 2015 and awoke suddenly with severe abdominal pain which resulted in 2 episodes of emesis. She was given morphine by EMS. She continues to have pain. No reported fevers. She has not had a bowel movement. PFSH PFSH Medical History Loss of hearing Protein intolerance History of steroid therapy Fatty liver Vomiting Heartburn Leg cramps Wears glasses Post-menopausal Alcohol use Arthritis Injury of head and neck Loss of consciousness Non-smoker Home Medications ?Medication ?Instructions ?Recorded ?Last Taken ?Type polyethylene glycol 3350 17 4 g PO QDAY PRN constipati on 02/10/25 Unknown History gram/dose oral powder (Miralax) budesonide 3 mg 6 mg (2 x 3 mg) PO QDAY #60 ea 02/16/25 03/30/25 Rx capsule,delayed,extended release Allergy/AdvReac Type Severity Reaction Status Date / Time Penicillins Allergy Hives Verified 03/31/25 23:36 Family History Mother Hypertension CVA (cerebral vascular accident) Father Hypertension Prostate cancer Surgical History (Updated 04/01/25 @ 01:[address] Tracey Gomez MD) History of biliary stent insertion Hx of colonoscopy History of esophagogastroduodenoscopy (EGD) Hx of appendectomy Social History (Updated 04/01/25 @ 01:[address] Tracey Gomez MD) household members: spouse Smoking Status: Never smoker alcohol intake: current alcohol intake frequency: holidays/special occasions only substance use type: does not use what type of physical activity do you participate in: walking and bicycling ROS ROS ED Constitutional Constitutional ED: Denies chills, fever(s) or weight loss Eyes Eyes: Denies change in vision or diplopia ENT ENT ED: Denies ear pain, rhinorrhea or sore throat Cardiovascular Cardiovascular: Denies chest pain, orthopnea, palpitations or racing heartbeat Respiratory/Chest Respiratory/Chest: Denies cough, dyspnea or orthopnea Gastrointestinal Gastrointestinal: Reports abdominal pain, nausea and vomiting; Denies diarrhea Genitourinary Genitourinary ED: Denies dysuria, hematuria or urinary frequency Musculoskeletal Musculoskeletal: Denies arthralgias or myalgias Integumentary Denies abscess or rash Neurologic Neurologic: Denies headache(s) or weakness Psychiatric Psychiatric: Denies anxiety, depression, suicidal ideation or suicidal thoughts Endocrine Endocrinology: Denies polydipsia, polyphagia or polyuria Allergic/Immunologic Allergic/Immunologic ED: Denies mouth swelling, tongue swelling or urticaria EXAM Physical Exam Const Vital Signs: 03/31/25 23:34 03/31/25 23:36 04/01/25 00:36 Temperature 97.8 F 98.0 F 97.8 F Temperature Source Oral Temporal Temporal Pulse Rate 68 70 66 Respiratory Rate 16 13 16 Blood Pressure 146/80 H 148/85 H 171/89 H Blood Pressure Mean 102 106 116 Pulse Ox 96 97 98 Oxygen Delivery Method Room Air Room Air Room Air 04/01/25 01:00 04/01/25 01:33 04/01/25 02:00 Temperature 97.9 F 98.2 F Temperature Source Temporal Temporal Pulse Rate 58 L 52 L 50 L Respiratory Rate 17 17 17 Blood Pressure 163/73 H 177/79 H Blood Pressure Mean 103 111 Pulse Ox 98 98 Oxygen Delivery Method Room Air Room Air 04/01/25 03:00 04/01/25 03:00 Temperature 98.3 F Temperature Source Temporal Pulse Rate 83 65 Respiratory Rate 16 16 Blood Pressure 171/73 H Blood Pressure Mean 105 Pulse Ox 96 97 Oxygen Delivery Method Room Air Room Air Positive well nourished and well developed General Appearance ED: well developed HEENT Reports normocephalic, head/scalp atraumatic and moist mucous membranes Eyes PERRL and EOMs intact bilaterally Neck no lymphadenopathy, supple and no JVD Resp normal respiratory effort and clear to auscultation bilaterally Cardio regular rate, regular rhythm and no murmurs GI non-distended Inspection: Negative for abdominal distention Auscultation: normoactive bowel sounds Palpation: soft, tender epigastric, LUQ and RUQ, guarding and rebound tenderness present Back/Spine no CVA tenderness and normal ROM Extremity normal to inspection General Extremety ED: Negative for edema General Extremity: Negative for edema Neuro oriented x3 and CN's II-XII intact bilaterally Sensorium / Orientation: alert Motor Exam: strength 5/5 throughout Psych mental status grossly normal Mood & Affect: Negative for depressed or tearful Skin no rashes or lesions noted and no wounds MDM MDM MDM Narrative Medical decision making narrative: Differential diagnosis includes but not limited to perforated viscus gastritis spasm pancreatitis stent movement GI bleed anemia Basic blood work shows a white count of 5.5 hemoglobin 13.4 platelet count of 189. Lipase is greater than 3000 amylase 2075. LFT showed an AST of 35 normal total and direct bilirubin. Glucose of 168. CO2 20.4 creatinine 0.69. Normal sodium potassium. Patient received a dose of Dilaudid and Zofran as well as IV fluids. CT then pelvis was obtained. This demonstrates fluid around the pancreas. I do not see an obvious perforation. Please see radiologist read for full details. Plan of care will be to have the patient admitted. Will be speaking with Dr. Roy and the hospitalist. History & Record Review Discussion w/independent historian: Patient Additional record(s) reviewed:: Prior outpatient record and Prior labs Lab Data Attestation: I reviewed the patient's lab results. Labs: Laboratory Results - last 24 hr 04/01/25 00:02 WBC 5.5 RBC 4.67 Hgb 13.4 Hct 39.7 MCV 85.0 MCH 28.7 MCHC 33.8 RDW Std Deviation 40.1 RDW Coeff of Eulalio 13.1 Plt Count 189 MPV 9.6 Immature Gran % (Auto) 0.200 Neut % (Auto) 74.8 H Lymph % (Auto) 17.8 L [place] % (Auto) 7.0 Eos % (Auto) 0.0 Baso % (Auto) 0.2 Absolute Neuts (auto) 4.1 Absolute Lymphs (auto) 0.97 Nucleated RBC % 0 Sodium 138 Potassium 4.0 Chloride 106 Carbon Dioxide 20.4 L Anion Gap 12 BUN 18 Creatinine 0.69 L Estim Creat Clear Calc 51.40 Est GFR (MDRD) Non-Af 90 BUN/Creatinine Ratio 25.8 H Glucose 168 H Calcium 8.9 Total Bilirubin 0.63 Direct Bilirubin 0.23 AST 35 H ALT 17 Alkaline Phosphatase 63 Total Protein 6.9 Albumin 4.0 Globulin 2.8 Amylase 6 H Lipase > 3000 H Radiography Diagnostic Testing: Clinical Impression(s) from Imaging Studies Abdomen/Pelvis CT 04/01/25 23:55 IMPRESSION: Mild peripancreatic inflammatory fat stranding suggestive of acute pancreatitis. Mildly prominent pancreatic duct. Common bile duct stent is noted in good position. Mild biliary ductal dilatation. Diffuse thickening of the stomach and the duodenum, possibly reactive or secondary to gastro duodenitis without perforation.. Calcified atheromatous plaques of the aorta and iliac arteries. Small sliding hiatal hernia. Contrast is noted in the gallbladder, benign finding from prior intervention. Pneumobilia is noted, benign finding secondary to prior sphincterotomy and the presence of common bile duct stent. Mild bilateral basilar atelectatic pulmonary changes. Mild diffuse spondylosis. Grade 1 anterolisthesis of L4 on L5. Moderate amount of fecal residue in the large bowels. Chronic bone changes of Paget disease. Reading Location: [place] [address] Management Discussion w/another healthcare provider: Hospitalist (Dr. Gomez) and Powdered Sugar Pulverizer Operator (Dr. Roy ([facility])) Discharge Plan Dx/Rx/DC Orders Clinical Impression: Abdominal pain, acute, Acute pancreatitis Disposition Disposition: Acute Care Hospital [facility]
--- NOTE | 2025-04-01 01:41 | PCM.HP.STD ---
HPI - General General Date of Admission: 04/01/25 Date of Service: 04/01/25 Chief Complaint: Abdominal pain, N/V. 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 Roy secondary to abnormal MRCP/abdominal ultrasound with elevated LFTs with suspected biliary origin with significant choledocholithiasis identified with removal of stones with biliary stent and balloon extraction with stents placed in the common bile duct and cells for cytology obtained in the lower third of the main duct who now re-presents to the [facility] ED on 04/01/2025 secondary to onset following dinner epigastric discomfort with associated nausea and emesis with pain noted to be sharp, stabbing and aching rated 8-9 of 10 in severity initially, improved currently following ED interventions and rated 4 out of 10 in severity. She denies any associated diarrhea or fever or chills. Workup in the ED included T97.8, heart rate 68, BP 146/80, respiratory rate 16, 96% on room air with most recent repeat vitals T97.9, heart rate 58, BP 163/73, respiratory rate 17, 98% room air, CBC with WC 5.5, hemoglobin 13.4, platelet 189 without marked shift, CMP with carbon oxide 20.4, BUN/creatinine 18/0.69, GFR 90, glucose 168, hepatic profile with AST 35 otherwise not marked appearing, lipase greater than 3000, amylase 2076, CT abdomen and pelvis []. In the ED patient initiated on maintenance IV fluids, administered Dilaudid 0.5 mg IV x 1 and Zofran 4 mg IV x 1. PFSH Medical History Loss of hearing Protein intolerance History of steroid therapy Fatty liver Vomiting Heartburn Leg cramps Wears glasses Post-menopausal Alcohol use Arthritis Injury of head and neck Loss of consciousness Non-smoker Home Medications ?Medication ?Instructions ?Recorded ?Last Taken ?Type polyethylene glycol 3350 17 4 g PO QDAY PRN constipation 02/10/25 Unknown History gram/dose oral powder (Miralax) budesonide 3 mg 6 mg (2 x 3 mg) PO QDAY #60 ea 02/16/25 03/30/25 Rx capsule,delayed,extended release Allergy/AdvReac Type Severity Reaction Status Date / Time Penicillins Allergy Hives Verified 03/31/25 23:36 Family History Mother Hypertension CVA (cerebral vascular accident) Father Hypertension Prostate cancer Surgical History (Updated 04/01/25 @ 01:[address] Tracey Gomez MD) History of biliary stent insertion Hx of colonoscopy History of esophagogastroduodenoscopy (EGD) Hx of appendectomy Social History (Updated 04/01/25 @ 01:[address] Tracey Gomez MD) household members: spouse Smoking Status: Never smoker alcohol intake: current alcohol intake frequency: holidays/special occasions only substance use type: does not use what type of physical activity do you participate in: walking and bicycling ROS ROS Narrative Admission Review of Systems: CONSTITUTIONAL: No weight loss, fever, chills, + weakness or fatigue. HEENT: Eyes: No visual loss, blurred vision, double vision or yellow sclerae. Ears, Nose, Throat: No hearing loss, sneezing, congestion, runny nose or sore throat. SKIN: No rash or itching, lesions, wounds. CARDIOVASCULAR: No chest pain, chest pressure or chest discomfort, palpitations, edema, orthopnea, syncopal events. RESPIRATORY: No shortness of breath, cough or sputum, wheezing, hemoptysis. GASTROINTESTINAL: + anorexia, nausea, vomiting, abdominal pain. No diarrhea, melena, BRBPR. GENITOURINARY: No dysuria, frequency, urgency or retention. NEUROLOGICAL: No headache, dizziness, syncope, paralysis, ataxia, numbness or tingling in the extremities, focal weakness, change in bowel or bladder control, seizure. MUSCULOSKELETAL: + muscle, back pain, joint pain or stiffness. HEMATOLOGIC: No anemia, bleeding or bruising. LYMPHATICS: No enlarged nodes. No history of splenectomy. PSYCHIATRIC: No history of depression or anxiety. ENDOCRINOLOGIC: No reports of sweating. +Hx cold or heat intolerance. No polyuria or polydipsia. ALLERGIES: + Hx Hives. Vital Signs Vital Signs Vital Signs: 03/31/25 23:34 03/31/25 23:36 04/01/25 00:36 Temperature 97.8 F 98.0 F 97.8 F Temperature Source Oral Temporal Temporal Pulse Rate 68 70 66 Respiratory Rate 16 13 16 Blood Pressure 146/80 H 148/85 H 171/89 H Blood Pressure Mean 102 106 116 Pulse Ox 96 97 98 Oxygen Delivery Method Room Air Room Air Room Air 04/01/25 01:00 Temperature 97.9 F Temperature Source Temporal Pulse Rate 58 L Respiratory Rate 17 Blood Pressure 163/73 H Blood Pressure Mean 103 Pulse Ox 98 Oxygen Delivery Method Room Air Weight Weight: 134 lb 4.184 oz Body Mass Index (BMI) 24.5 Physical Exam Narrative Physical Examination: General: Awake, alert, oriented x 3 and cooperative, lying in the ED bed, fatigued, ill-appearing, notes pain is improved to 4-10 in severity. Skin: Normal color, normal turgor, no icterus, no cyanosis except occasional stage ecchymoses, abrasion. HEENT: AT/NC, EOMI, PERRLA, dry MM, no carotid bruits or JVD noted. Lungs: Diminished, greater bases, proper effort, no rales, ronchi or wheezing. Heart: Regular rate and rhythm; no gallop, rub audible. Abdomen: Soft, notable epigastric discomfort with palpation, voluntary guarding, some less intensive discomfort with gentle palpation of the abdomen including bilateral lower quadrants, no marked distention, mildly hyperactive BS, no obvious HSM however difficult evaluation given pain. Extremities: No cyanosis, clubbing, or edema. Neurological: Patient awake, alert, oriented as noted, cognitive function intact; pupils equally reactive to light and accommodation, cranial nerves grossly normal, moving all 4 extremities, no focal deficits, strength moderately to severely globally decreased secondary to acute presentation complaints. Psychiatric: Affect appears fatigued, uncomfortable appearing, no acute evidence of depressive or anxiety feelings. Results Lab / Micro Data 04/01/25 00:02 04/01/25 00:02 Labs: Laboratory Results - last 24 hr 04/01/25 00:02: WBC 5.5, RBC 4.67, Hgb 13.4, Hct 39.7, MCV 85.0, MCH 28.7, MCHC 33.8, RDW Std Deviation 40.1, RDW Coeff of Eulalio 13.1, Plt Count 189, MPV 9.6, Immature Gran % (Auto) 0.200, Neut % (Auto) 74.8 H, Lymph % (Auto) 17.8 L, [place] % (Auto) 7.0, Eos % (Auto) 0.0, Baso % (Auto) 0.2, Absolute Neuts (auto) 4.1, Absolute Lymphs (auto) 0.97, Nucleated RBC % 0, Sodium 138, Potassium 4.0, Chloride 106, Carbon Dioxide 20.4 L, Anion Gap 12, BUN 18, Creatinine 0.69 L, Estim Creat Clear Calc 51.40, Est GFR (MDRD) Non-Af 90, BUN/Creatinine Ratio 25.8 H, Glucose 168 H, Calcium 8.9, Total Bilirubin 0.63, Direct Bilirubin 0.23, AST 35 H, ALT 17, Alkaline Phosphatase 63, Total Protein 6.9, Albumin 4.0, Globulin 2.8, Amylase 2076 H, Lipase > 3000 H Assessment & Plan Assessment/Plan (1) Acute pancreatitis: PLAN: Plan The patient is a 75 y/o F w/ PMHx: GERD, 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 Roy secondary to abnormal MRCP/abdominal ultrasound with elevated LFTs with suspected biliary origin with significant choledocholithiasis identified with removal of stones with biliary stent and balloon extraction with stents placed in the common bile duct and cells for cytology obtained in the lower third of the main duct who now re-presents to the [facility] ED on 04/01/2025 secondary to onset following dinner epigastric discomfort with associated nausea and emesis with pain noted to be sharp, stabbing and aching. #1. Acute pancreatitis w/ abdominal pain, N/V status post recent ERCP with stent placement, balloon extraction/removal of stones secondary to choledocholithiasis: CT abdomen and pelvis pending upon requested evaluation of patient however as long as there is no concerning findings on this image that require transition out of [facility] ED would plan to admit to [facility], maintain on IVFs, n.p.o. status until clinically improving with advancement to clears, will maintain on IV PPI, IV/po pain control, trend lipase, CMP, GI consulted given recent intervention within the last 24 hours. #2. Elevated BP without hypertensive diagnosis: BP elevated in the ED, possibly pain related given acute presentation #1, continue to treat as noted, as needed IV hydralazine in the interim. #3. Nonalcoholic chart documented liver fibrosis of unclear etiology: Patient following with gastroenterology, noted ultrasound and elastography 09/06/24 with hepatic measurement 17 cm with fatty infiltration, stiffness measuring at that time 6.8 kPa, encouraged continued outpatient follow-up with gastroenterology as previously arranged. #4. Chronic Kidney Disease Stage II per GFR trending: Admission BUN/Cr 18/0.69, GFR 90 however usually consistent with stage II, baseline renal function 0.6-0.7 primarily, repeat BMP in AM. #5. 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 #6. GERD: Will maintain IV PPI. #7. DVT prophylaxis: SCDs, will defer chemoprophylaxis pending GI evaluation in case of any intervention needs, initiate chemoprophylaxis if deferred. Charges/Coding Visit Charges Inpatient E&M: 00718 Init Hosp L3
[2025-04-01] MEDS: HYDROmorphone 0.5 MG/0.5 ML SYRINGE IV (03:07)
--- OUTSIDE RECORDS SUMMARY | 2025-04-01 04:28 | XMS RPT_ITS | CCD ---
Author Organization [facility] Providers Care Corrosion Control Technician Name Role Phone Dr. Radha Rodas Primary Care Provider Dr. Radha Rodas Referring Provider Dr. Meet Oliva Attending Provider [phone] Daniel Dickerson Attending Provider VICKY Osuna Attending Provider Dr. Radha Rodas Primary Care Provider Dr. Radha Rodas Referring Provider VICKY Falcon Attending Provider Dr. Radha Rodas Primary Care Provider [phone] Radha Rodas Referring Provider VICKY Falcon [...] Friend DO, Dr. Allen Other Provider [phone] Danielle CORADO, Dr. Dsouza Attending Provider Danielle CORADO, Dr. Dsouza Referring Provider [phone] Adrianna DO, Dr. Garcia Primary Care Provider [phone] Friend DO, Dr. Allen Referring Provider Adrianna DO, Dr. Garcia Primary Care Provider [phone] Danielle CORADO, Dr. Dsouza Attending Provider Danielle CORADO, Dr. Dsouza Referring Provider [phone] Malys, Radha Primary Care Unavailable Malys, Radha [...] Unavailable Malys, Radha Primary Care Unavailable Malys, Rdaha Referring Unavailable Prah, Meet Attending Unavailable Malys, [...] Care Unavailable Pra, Meet Attending Unavailable Praolivia, Meet Referring Unavailable Allergies Allergy Classification Reported Allergen(s) Allergy Type Date of Onset Reaction(s) Facility (15 sources) Penicillins; Translations: [Penicillins] Allergy to substance 04-13-2021 [facility] Medications Current Medications Medication Drug Class(es) Dates Sig (Normalized) Sig (Original) polyethylene glycol 3350 59880 mg powder for oral solution (8 sources) Osmotic Laxative Start: 02-10-2025 Polyethylene Glycol 3350 (Miralax) 17 gram/dose powder Active 4 g PO daily February 10, 2025 12:00am Start: 07-05-2024 End: 11-15-2024 Polyethylene Glycol 3350 (Mi ralax) 17 gram/dose powder Discontinued 4 g PO daily as needed for constipation July 05, 2024 1:00am November 15, 2024 1:11pm Vuuxpap-Xsmp-Kdekr-Oreg-Capr yl (6 sources) Start: 01-28-2022 Ioyqiza-Ftra-Xphxq-Oreg-Capr yl Active CAP PO January 27, 2022 11:00pm Start: 01-28-2022 Lrkqwvr-Afbn-L kkru-Tbrz-Vcxxcx Active CAP PO January 28, 2022 12:00am [...] Start: 08-15-2017 End: 08-18-2017 Ibuprofen Discontinued PO [facility] 2017 11:00pm August 18, 2017 9:50am L.Acidoph,Saliva-B.Bif-S.The [...] NMA PO daily August 26, 2024 12:00am Pz-Xw-Qcfq-Fa-Ca Carb-Vit K (Women's Multivitamin) 18 mg iron-400 mcg-500 mg tablet (14 sources) Start: 03-25-2019 End: 11-15-2024 Fh-Bv-Eaep-Fa-Ca Carb-Vit K (Women's Multivitamin) 18 mg iron-400 mcg-500 mg tablet Discontinued 1 {tbl} PO DAILY March 25, 2019 12:00am November 15, 2024 1:11pm Start: 03-25-2019 Pc-Da-Dvkg-Fa- Ca Carb-Vit K (Women's Multivitamin) 18 mg iron-400 mcg-500 mg tablet Active 1 {tbl} PO DAILY March 25, 2019 12:00am Start: 03-25-2019 take 1 tablet by zulma once daily If-Dz-Kcjn-Fa-Ca Carb-Vit K (Women's Multivitamin) 18 mg iron-400 mcg-500 mg tablet Active 1 TABLET PO DAILY March 24, 2019 11:00pm Start: 03-25-2019 take 1 tablet by zulma th once daily Fl-Sl-Slgb-Fa-Ca Carb-Vit K (Women's Multivitamin) 18 mg iron-400 [...] not open, crush, dissolve , or chew [place]-3 Fatty Acids 1,000 mg capsule (7 sources) Start: 08-26-2024 End: 11-15-2024 take 1 capsule by mouth once daily [place]-3 Fatty Acids 1,000 mg capsule Discontinued 1000 mg PO daily August 26, 2024 12:00am November 15, 2024 1:11pm Start: 08-26-2024 take 1 capsule by mouth once d aily [place]-3 Fatty Acids 1,000 mg capsule Active 1000 [...] 03, 2024 12:00am July 05, 2024 10:36am Becydcvs-Qmht-Dtksx-O reg-Capry 100 mg-150 mg- 50 mg-150 mg capsule (7 sources) Start: 01-28-2022 End: 11-15-2024 Weskuavw-Xlaa-Gdrlb- Oreg-Capry 100 mg-150 mg- 50 mg-150 mg capsule Discontinued NMA PO January 28, 2022 12:00am November 15, 2024 1:11pm Start: 01-28-2022 Turmeric-Ging- Dkelq-Vuwo-Iehwk 100 mg-150 mg- 50 mg-150 mg capsule [...] Oncology Visit Reporton 01-31 Oncology Visit Report [facility] [address] [place] [address]. [place] [address] OFFICE VISIT Date of Service: 02/10/25 1327 MR#: [id number] Acct: [id number] Name: OLGA STAFFORD Rep #: [id number] : 1950 From: Meet Santos MD Age/Sex: 74/F Location[place] [facility] [place] Status: Signed HPI Subjective Date of Service [...] well, still getallergic reaction to certain foods. [facility] Medical History Wears glasses Post-menopausal Alcohol [...] IgM 111 IgE 29 LORENZO M-Fabián Free Lerna LC, Quant Free Lambda LC, Quant Free Lerna/Lambda Ratio 10/14/24 02/03/25 14:04 08:17 WBC 4.5 [...] 102 IgE LORENZO M-Fabián Not Observed Free Lerna LC, Quant 43.2 H Free Lambda LC, Quant 46.9 H Free Lerna/Lambda Ratio 0.92 Exam Physical Exam Const alert, [...] Date _ (more content not included)... Normal [facility] LORENZO + Protein Elect, Serumon 02-07-2025 Albumin [Mass/Vol] 3.6 g/dL Normal 2.9-4.4 [facility] Comment on above: Order Comment: N Performed By: #### L 3130.0010, L504.2610, L100.0100, L3100.3425, L500.4050 ####[facility] [address] [place], [address] Albumin/Globulin [Mass ratio] 1.3 {ratio} Normal 0.7-1.7 [facility] Comment on above: Order Comment: N Performed By: #### L 3130.0010, L504.2610, L100.0100, L3100.3425, L500.4050 ####[facility] [address] [place], [address] EWJXS-4-KFHB 0.2 g/dL Normal 0.0-0.4 [facility] Comment on above: Order Comment: N Performed By: #### L 3130.0010, L504.2610, L100.0100, L3100.3425, L500.4050 ####[facility] [address] [place], [address] SBNDY-1-CBIE 0.6 g/dL Normal 0.4-1.0 [facility] Comment on above: Order Comment: N Performed By: #### L 3130.0010, L504.2610, L100.0100, L3100.3425, L500.4050 ####[facility] [address] [place], [address] BETA GLOBULIN 0.9 g/dL Normal 0.7-1.3 [facility] Comment on above: Order Comment: N Performed By: #### L 3130.0010, L504.2610, L100.0100, L3100.3425, L500.4050 ####[facility] [address] [place], [address] GAMMA GLOBULIN 1.4 g/dL Normal 0.4-1.8 [facility] Comment on above: Order Comment: N Performed By: #### L 3130.0010, L504.2610, L100.0100, L3100.3425, L500.4050 ####[facility] [address] [place], [address] Globulin (S) [Mass/Vol] 3.0 g/dL Normal 2.2-3.9 [facility] Comment on above: Order Comment: N Performed By: #### L 3130.0010, L504.2610, L100.0100, L3100.3425, L500.4050 ####[facility] [address] [place], [address] LORENZO RESULT,S Comment: Normal . [facility] Comment on above: Order Comment: N Result Comment: Pres ence of monoclonal protein is unclear at this time. Suggest repeat in 3 to 6 months if clinically indicated. Performed By: #### L 3130.0010, L504.2610, L100.0100, L3100.3425, L500.4050 ####[facility] [address] [place], [address] IMMUNOGLOB A QN 168 mg/dL Normal 64-422 [facility] Comment on above: Order Comment: N Performed By: #### L 3130.0010, L504.2610, L100.0100, L3100.3425, L500.4050 ####[facility] [address] [place], [address] IMMUNOGLOB G QN 1532 mg/dL Normal 586-1602 [facility] Comment on above: Order Comment: N Performed By: #### L 3130.0010, L504.2610, L100.0100, L3100.3425, L500.4050 ####[facility] [address] [place], [address] IMMUNOGLOB M QN 102 mg/dL Normal 26-217 [facility] Comment on above: Order Comment: N Performed By: #### L 3130.0010, L504.2610, L100.0100, L3100.3425, L500.4050 ####[facility] [address] [place], [address] M-Fabián Not Observed Normal Not Observed [facility] Comment on above: Order Comment: N Performed By: #### L 3130.0010, L504.2610, L100.0100, L3100.3425, L500.4050 ####[facility] [address] [place], [address] NOTE: Comment Normal . [facility] Comment on above: Order Comment: N Result Comment: Prot ein electrophoresis scan will follow via computer, mail, or pier hand delivery. Performed By: #### L 3130.0010, L504.2610, L100.0100, L3100.3425, L500.4050 ####[facility] [address] [place] [id number] Protein [Mass/Vol] 6.6 g/dL Normal 6.0-8.5 [facility] Comment on above: Order Comment: N Performed By: #### L 3130.0010, L504.2610, L100.0100, L3100.3425, L500.4050 ####[facility] [address] [place], [address] Lerna Lambda Light Chainson 02-07-2025 FR KAPPA LT CHN 43.2 mg/L Abnormal 3.3-19.4 [facility] Comment on above: Performed By: #### L 3130.0010, L504.2610, L100.0100, L3100.3425, L500.4050 ####[facility] [address] [place], [address] FR LAMBDA LT CH 46.9 mg/L Abnormal 5.7-26.3 [facility] Comment on above: Performed By: #### L 3130.0010, L504.2610, L100.0100, L3100.3425, L500.4050 ####[facility] [address] [place], [place], [id number] KAPPA/LAMBDA % 0.92 Normal 0.26-1.65 [facility] Comment on above: Result Comment: Perf ormed at: [facility] [address] [id number] Preparer Samples And Repairs: Cristhian Nath PhD, Phone: [phone] Performed By: #### L 3130.0010, L504.2610, L100.0100, L3100.3425, L500.4050 ####[facility] [address] [place], [place], [id number] Absolute lymphocyte countOrd ered By: Meet Santos on 02-03-2025 Lymphocytes Auto (Unsp spec) [#/Vol] 1.95 10*3/uL 0.83-4.51 [facility] Absolute neutrophil countOrd ered By: Meet Santos on 02-03-2025 Neutrophils (Bld) [#/Vol] 1.7 10*3/uL Low 2.0-7.7 [facility] Albumin Elph [Mass/Vol]Order ed By: Meet Santos on 02-03-2025 Albumin [Mass/Vol] 3.6 g/dL 2.9-4.4 [facility] Anion gap in Serum or Plasma Ordered By: Meet Santos on 02-03-2025 Anion gap [Moles/Vol] 9 mmol/L 5-15 [facility] Automated lymphocyte count a s percentage of total leukocytesOrdered By: Meet Santos on 02-03-2025 Lymphocytes/100 WBC Auto (Unsp spec) 47.0 % High 19-41 [facility] BUN/creatinine ratioOrdered By: Meet Santos on 02-03-2025 Urea nitrogen/Creatinine [Mass ratio] 28.0 mg/mg High 10-20 [facility] Basophil percentageOrdered B y: Meet Santos on 02-03-2025 Basophils/100 WBC (Bld) 0.7 % 0-1 [facility] Bilirubin, totalOrdered By: Meet Santos on 02-03-2025 Bilirubin [Mass/Vol] 0.32 mg/dL 0.00-1.30 [facility] CBC W/Diff, Automatedon Absolute Lymph 1.95 X10 3/uL Normal 0.83-4.51 [facility] Comment on above: Performed By: #### L 3130.0010, L504.2610, L100.0100, L3100.3425, L500.4050 ####[facility] [address] [place], [address] Absolute Neut 1.7 X10 3/uL Low 2.0-7.7 [facility] Comment on above: Performed By: #### L 3130.0010, L504.2610, L100.0100, L3100.3425, L500.4050 ####[facility] [address] [place], [address] Basophils/100 WBC (Bld) 0.7 % Normal 0-1 [facility] Comment on above: Performed By: #### L 3130.0010, L504.2610, L100.0100, L3100.3425, L500.4050 ####[facility] [address] [place], [address] Eosinophils/100 WBC (Bld) 1.2 % Normal 0-5 [facility] Comment on above: Performed By: #### L 3130.0010, L504.2610, L100.0100, L3100.3425, L500.4050 ####[facility] [address] [place], [address] Erythrocyte distribution width (RBC) [Ratio] 13.1 % Normal 11.6-14.6 [facility] Comment on above: Performed By: #### L 3130.0010, L504.2610, L100.0100, L3100.3425, L500.4050 ####[facility] [address] [place], [address] Hematocrit (Bld) [Volume fraction] 38.2 % Normal 37-47 [facility] Comment on above: Performed By: #### L 3130.0010, L504.2610, L100.0100, L3100.3425, L500.4050 ####[facility] [address] [place], [address] Hemoglobin (Bld) [Mass/Vol] 12.8 g/dL Normal 12.0-15.0 [facility] Comment on above: Performed By: #### L 3130.0010, L504.2610, L100.0100, L3100.3425, L500.4050 ####[facility] [address] [place], [address] IG% 0.000 Normal 0.0-0.9 [facility] Comment on above: Result Comment: IG% - Immature Granulocytes (promyelocytes, myelocytes and metamyelocytes) > 1% indicates that a LEFT SHIFT is Present. Performed By: #### L 3130.0010, L504.2610, L100.0100, L3100.3425, L500.4050 ####[facility] [address] [place], [address] Lymphocytes/100 WBC (Bld) 47.0 % High 19-41 [facility] Comment on above: Performed By: #### L 3130.0010, L504.2610, L100.0100, L3100.3425, L500.4050 ####[facility] [address] [place], [address] MCH (RBC) [Entitic mass] 29.3 pg Normal 27.0-32.0 [facility] Comment on above: Performed By: #### L 3130.0010, L504.2610, L100.0100, L3100.3425, L500.4050 ####[facility] [address] [place], [address] MCHC (RBC) [Mass/Vol] 33.5 g/dL Normal 32-36 [facility] Comment on above: Performed By: #### L 3130.0010, L504.2610, L100.0100, L3100.3425, L500.4050 ####[facility] [address] [place], [address] MCV (RBC) [Entitic vol] 87.4 fL Normal 81-99 [facility] Comment on above: Performed By: #### L 3130.0010, L504.2610, L100.0100, L3100.3425, L500.4050 ####[facility] [address] [place], [address] Monocytes/100 WBC (Bld) 9.4 % Normal 0-10 [facility] Comment on above: Performed By: #### L 3130.0010, L504.2610, L100.0100, L3100.3425, L500.4050 ####[facility] [address] [place], [address] Neutrophils/100 WBC (Bld) 41.7 % Low 47-70 [facility] Comment on above: Performed By: #### L 3130.0010, L504.2610, L100.0100, L3100.3425, L500.4050 ####[facility] [address] [place], [address] Nucleated RBC (Bld) [#/Vol] 0 10*3/uL Normal 0-5 [facility] Comment on above: Performed By: #### L 3130.0010, L504.2610, L100.0100, L3100.3425, L500.4050 ####[facility] [address] [place], [address] Platelet mean volume (Bld) [Entitic vol] 9.0 fL Normal 6.2-12.0 [facility] Comment on above: Performed By: #### L 3130.0010, L504.2610, L100.0100, L3100.3425, L500.4050 ####[facility] [address] [place], [address] Platelets (Bld) [#/Vol] 200 10*3/uL Normal 150-450 [facility] Comment on above: Performed By: #### L 3130.0010, L504.2610, L100.0100, L3100.3425, L500.4050 ####[facility] [address] [place], [address] RBC (Bld) [#/Vol] 4.37 10*6/uL Normal 4.2-5.4 [facility] Comment on above: Performed By: #### L 3130.0010, L504.2610, L100.0100, L3100.3425, L500.4050 ####[facility] [address] [place], [address] RDW SD 42.1 fl Normal 35.1-43.9 [facility] Comment on above: Performed By: #### L 3130.0010, L504.2610, L100.0100, L3100.3425, L500.4050 ####[facility] [address] [place], [address] WBC (Bld) [#/Vol] 4.2 10*3/uL Low 4.4-11.0 [facility] Comment on above: Performed By: #### L 3130.0010, L504.2610, L100.0100, L3100.3425, L500.4050 ####[facility] [address] [place], [address] Carbon dioxide, total [Moles /volume] in Central venous bloodOrdered By: Meet Santos on 02-03-2025 CO2 [Moles/Vol] 25.6 mmol/L 21.0-32.0 [facility] Chloride assayOrdered By: Sherlyn Santos on 02-03-2025 Chloride [Moles/Vol] 107 mmol/L 98-108 [facility] Comprehensive Metabolic Prof ilon 02-03-2025 Albumin [Mass/Vol] 4.1 g/dL Normal 3.4-4.8 [facility] Comment on above: Performed By: #### L 3130.0010, L504.2610, L100.0100, L3100.3425, L500.4050 ####[facility] [address] [place], [address] Albumin/Globulin [Mass ratio] 1.4 {ratio} Normal 0.9-2.4 [facility] Comment on above: Performed By: #### L 3130.0010, L504.2610, L100.0100, L3100.3425, L500.4050 ####[facility] [address] [place], [address] ALK PHOS 74 U/L Normal 35-104 [facility] Comment on above: Performed By: #### L 3130.0010, L504.2610, L100.0100, L3100.3425, L500.4050 ####[facility] [address] [place], [address] ALT [Catalytic activity/Vol] 24 U/L Normal <=34 [facility] Comment on above: Performed By: #### L 3130.0010, L504.2610, L100.0100, L3100.3425, L500.4050 ####[facility] [address] [place], [address] AST [Catalytic activity/Vol] 32 U/L Normal <=31 [facility] Comment on above: Performed By: #### L 3130.0010, L504.2610, L100.0100, L3100.3425, L500.4050 ####[facility] [address] [place], [address] Bilirubin [Mass/Vol] 0.32 mg/dL Normal 0.00-1.30 [facility] Comment on above: Performed By: #### L 3130.0010, L504.2610, L100.0100, L3100.3425, L500.4050 ####[facility] [address] [place], [address] BUN/CRE 28.0 RATIO High 10-20 [facility] Comment on above: Performed By: #### L 3130.0010, L504.2610, L100.0100, L3100.3425, L500.4050 ####[facility] [address] [place], [address] Calcium [Mass/Vol] 9.1 mg/dL Normal 7.6-11.0 [facility] Comment on above: Performed By: #### L 3130.0010, L504.2610, L100.0100, L3100.3425, L500.4050 ####[facility] [address] [place], [address] Chloride [Moles/Vol] 107 mmol/L Normal 98-108 [facility] Comment on above: Performed By: #### L 3130.0010, L504.2610, L100.0100, L3100.3425, L500.4050 ####[facility] [address] [place], [address] CO2 [Moles/Vol] 25.6 mmol/L Normal 21.0-32.0 [facility] Comment on above: Performed By: #### L 3130.0010, L504.2610, L100.0100, L3100.3425, L500.4050 ####[facility] [address] [place], [address] Creatinine [Mass/Vol] 0.75 mg/dL Normal 0.70-1.20 [facility] Comment on above: Performed By: #### L 3130.0010, L504.2610, L100.0100, L3100.3425, L500.4050 ####[facility] [address] [place], [address] ECRCL 48.06 ml/min Low 50-250 [facility] Comment on above: Performed By: #### L 3130.0010, L504.2610, L100.0100, L3100.3425, L500.4050 ####[facility] [address] [place], [address] GAP 9 Normal 5-15 [facility] Comment on above: Performed By: #### L 3130.0010, L504.2610, L100.0100, L3100.3425, L500.4050 ####[facility] [address] [place], [address] GFR/1.73 sq M.predicted among non-blacks MDRD (S/P/Bld) [Vol rate/Area] 82 mL/min/{1.73_m2} Normal >60 [facility] Comment on above: Result Comment: mL/m in/1.73m2 CKD-EPI Creatinine Equation (2020) Performed By: #### L 3130.0010, L504.2610, L100.0100, L3100.3425, L500.4050 ####[facility] [address] [place], [address] Globulin (S) [Mass/Vol] 2.9 g/dL Normal 2.2-4.2 [facility] Comment on above: Performed By: #### L 3130.0010, L504.2610, L100.0100, L3100.3425, L500.4050 ####[facility] [address] [place], [address] Glucose [Mass/Vol] 82 mg/dL Normal 70-99 [facility] Comment on above: Performed By: #### L 3130.0010, L504.2610, L100.0100, L3100.3425, L500.4050 ####[facility] [address] [place], [address] Potassium [Moles/Vol] 4.4 mmol/L Normal 3.3-5.1 [facility] Comment on above: Performed By: #### L 3130.0010, L504.2610, L100.0100, L3100.3425, L500.4050 ####[facility] [address] [place], [address] Sodium [Moles/Vol] 142 mmol/L Normal 133-145 [facility] Comment on above: Performed By: #### L 3130.0010, L504.2610, L100.0100, L3100.3425, L500.4050 ####[facility] [address] [place], [address] T PROT 7.0 g/dL Normal 5.9-8.4 [facility] Comment on above: Performed By: #### L 3130.0010, L504.2610, L100.0100, L3100.3425, L500.4050 ####[facility] [address] [place], [address] Urea nitrogen [Mass/Vol] 21 mg/dL High 4-19 [facility] Comment on above: Performed By: #### L 3130.0010, L504.2610, L100.0100, L3100.3425, L500.4050 ####[facility] [address] [place], [address] Eosinophil percentageOrdered By: Meet Santos on 02-03-2025 Eosinophils/100 WBC (Bld) 1.2 % 0-5 [facility] Erythrocyte distribution wid th ratioOrdered By: Meet Santos on 02-03-2025 Erythrocyte distribution width (RBC) [Ratio] 13.1 % 11.6-14.6 [facility] Erythrocyte distribution wid th standard deviationOrdered By: Meet Santos on 02-03-2025 Erythrocyte distribution width (RBC) [Ratio] 42.1 fl 35.1-43.9 [facility] Glomerular filtration rate ( GFR) estimation/1.73 sq m using serum, plasma, or whole bOrdered By: Meet Santos on 02-03-2025 GFR/1.73 sq M.predicted among non-blacks MDRD (S/P/Bld) [Vol rate/Area] 82 mL/min/{1.73_m2} >60 [facility] Comment on above: mL/min/1.73m2 CKD-EP I Creatinine Equation (2020) Hematocrit Auto (Bld) [Volum e fraction]Ordered By: Meet Santos on 02-03-2025 Hematocrit (Bld) [Volume fraction] 38.2 % 37-47 [facility] Hemoglobin measurementOrdere d By: Meet Santos on 02-03-2025 Hemoglobin (Bld) [Mass/Vol] 12.8 g/dL 12.0-15.0 [facility] Immature granulocytes/100 WB C Auto (Bld)Ordered By: Meet Santos on 02-03-2025 Immature granulocytes/100 WBC (Bld) 0.000 % 0.0-0.9 [facility] Comment on above: IG% - Immature Granu locytes (promyelocytes, myelocytes and metamyelocytes) > 1% indicates that a LEFT SHIFT is Present. Interpretation of serum or p lasma protein pattern by immunofixation (narrative resultOrdered By: Meet Santos on 02-03-2025 Protein Fractions Immunofixation Issac [Interp] Not Observed g/dL Not Observed [facility] LDHon 02-03-2025 LDH 193 U/L Normal 84-246 [facility] Comment on above: Order Comment: 1 Performed By: #### L 3130.0010, L504.2610, L100.0100, L3100.3425, L500.4050 ####[facility] [address] [place], [address] Laboratory - Chemistry and C hemistry - challengeOrdered By: Meet Santos on 02-03-2025 AST [Catalytic activity/Vol] 32 U/L <32 [facility] Lactate dehydrogenase (LDH) measurementOrdered By: Meet Santos on 02-03-2025 LDH [Catalytic activity/Vol] 193 U/L 84-246 [facility] [place] MCV (mean corpuscular volume ) determinationOrdered By: Meet Santos on 02-03-2025 MCV (RBC) [Entitic vol] 87.4 fL 81-99 [facility] Mean corpuscular hemoglobin (MCH) determinationOrdered By: Meet Santos on 02-03-2025 MCH (RBC) [Entitic mass] 29.3 pg 27.0-32.0 [facility] Mean corpuscular hemoglobin concentration (MCHC) determinationOrdered By: Meet Santos on 02-03-2025 MCHC (RBC) [Mass/Vol] 33.5 g/dL 32-36 [facility] Mean platelet volume determi nationOrdered By: Meet Santos on 02-03-2025 Platelet mean volume (Bld) [Entitic vol] 9.0 fL 6.2-12.0 [facility] Monocyte percentageOrdered B y: Meet Santos on 02-03-2025 Monocytes/100 WBC (Bld) 9.4 % 0-10 [facility] Neutrophil percentageOrdered By: Meet Santos on 02-03-2025 Neutrophils/100 WBC (Bld) 41.7 % Low 47-70 [facility] No Panel InformationOrdered By: Meet Santos on 02-03-2025 Addendum Document Comment . [facility] Comment on above: Protein electrophore sis scan will follow via computer,mail, or pier hand delivery. Nucleated red blood cell per centageOrdered By: Meet Santos on 02-03-2025 Nucleated RBC/100 WBC (Bld) [Ratio] 0 % 0-5 [facility] Platelet countOrdered By: Sherlyn Santos on 02-03-2025 Platelets (Bld) [#/Vol] 200 10*3/uL 150-450 [facility] Potassium measurement (mass/ volume)Ordered By: Meet Santos on 02-03-2025 Potassium (Unsp spec) [Mass/Vol] 4.4 mmol/L 3.3-5.1 [facility] RBC Auto (Bld) [#/Vol]Ordere d By: Meet Santos on 02-03-2025 RBC (Bld) [#/Vol] 4.37 10*6/uL 4.2-5.4 [facility] Serum creatinine measurement (mass/volume)Ordered By: Meet Santos on 02-03-2025 Creatinine [Mass/Vol] 0.75 mg/dL 0.70-1.20 [facility] Serum globulin measurement ( mass/volume)Ordered By: Meet Santos on 02-03-2025 Globulin (S) [Mass/Vol] 3.0 g/dL 2.2-3.9 [facility] Serum glucose measurement (m ass/volume)Ordered By: Meet Santos on 02-03-2025 Glucose [Mass/Vol] 82 mg/dL 70-99 [facility] Serum immunoglobulin kappa l ight chains/immunoglobulin lambda light chains mass ratioOrdered By: Meet [facility] [place] on 02-03-2025 Immunoglobulin light chains.kappa/Immunoglobul in light chains.lambda (S) [Mass ratio] 0.92 0.26-1.65 [facility] Comment on above: Performed at: [place] [id number] Director: Cristhian Nath PhD, Phone: [phone] Serum or plasma IgA measurem ent (mass/volume)Ordered By: Meet Santos on 02-03-2025 IgA [Mass/Vol] 168 mg/dL 64-422 [facility] Serum or plasma IgG measurem ent (mass/volume)Ordered By: Meet Santos on 02-03-2025 IgG [Mass/Vol] 1532 mg/dL 586-1602 [facility] Serum or plasma alanine hoff otransferase (ALT) measurementOrdered By: Meet Santos on 02-03-2025 ALT [Catalytic activity/Vol] 24 U/L <35 [facility] Serum or plasma albumin benito urement (mass/volume)Ordered By: Meet Santos on 02-03-2025 Albumin [Mass/Vol] 4.1 g/dL 3.4-4.8 [facility] Serum or plasma albumin/glob ulin mass ratioOrdered By: Meet Santos on 02-03-2025 Albumin/Globulin [Mass ratio] 1.4 {ratio} 0.9-2.4 [facility] Serum or plasma alkaline ruiz sphatase measurementOrdered By: Meet Santos on 02-03-2025 ALP [Catalytic activity/Vol] 74 U/L 35-104 [facility] Serum or plasma alpha 1 glob ulin measurement by electrophoresis (mass/volume)Ordered By: Meet Santos on 02-03-2025 Alpha 1 globulin Elph [Mass/Vol] 0.2 g/dL 0.0-0.4 [facility] Alpha 1 globulin Elph [Mass/Vol] 0.6 g/dL 0.4-1.0 [facility] Serum or plasma beta globuli n measurement by electrophoresis (mass/volume)Ordered By: Meet Santos on 02-03-2025 Beta globulin Elph [Mass/Vol] 0.9 g/dL 0.7-1.3 [facility] Serum or plasma calcium benito urement (mass/volume)Ordered By: Meet Santos on 02-03-2025 Calcium [Mass/Vol] 9.1 mg/dL 7.6-11.0 [facility] Serum or plasma gamma globul in measurement by electrophoresis (mass/volume)Ordered By: Meet Santos on 02-03-2025 Gamma globulin Elph [Mass/Vol] 1.4 g/dL 0.4-1.8 [facility] Serum or plasma immunoelectr ophoresis interpretation (nominal result)Ordered By: Meet Santos on 02-03-2025 Interpretation IEP [Interp] Comment: . [facility] Comment on above: Presence of monoclon al protein is unclear at this time. Suggestrepeat in 3 to 6 months if clinically indicated. Serum or plasma immunoglobul in kappa light chains measurement (mass/volume)Ordered By: Meet Santos on 02-03-2025 Immunoglobulin light chains.kappa [Mass/Vol] 43.2 mg/L High 3.3-19.4 [facility] Serum or plasma protein benito urement (mass/volume)Ordered By: Meet Danielle on 02-03-2025 Protein [Mass/Vol] 6.6 g/dL 6.0-8.5 [facility] Serum or plasma urea nitroge n measurement (mass/volume)Ordered By: Meet Danielle on 02-03-2025 Urea nitrogen [Mass/Vol] 21 mg/dL High 4-19 [facility] Sodium levelOrdered By: Ramakrishna Santos on 02-03-2025 Sodium [Moles/Vol] 142 mmol/L 133-145 [facility] Total proteinOrdered By: Kevin Santos on 02-03-2025 Protein [Mass/Vol] 7.0 g/dL 5.9-8.4 [facility] White blood cell (WBC) count Ordered By: Meet Santos on 02-03-2025 WBC (Bld) [#/Vol] 4.2 10*3/uL Low 4.4-11.0 [facility] Gastroenterology Visit Repor ton 01-27-2025 Gastroenterology Visit Report [facility]enterology [address] [place] [address] OFFICE VISIT Date of Service: 01/27/25 MR#: [id number] Acct: [id number] Name: OLGA STAFFORD Rep #: [id number] : 1950 Provider: Alejandro Roy DO Age/Sex: 74/F Location: [facility] Status: Signed with Addenda ADDENDUM by Alejandro [...] or phobias, making its application to a gwe-ScG-pnyzlhoi condition like FPIES potentially less effective and [...] diagnosis. * Allergy/Immunology consultation:???Collabora te with an pneumatic tester mechanic to review the FPIES diagnosis and determine [...] diet with adequate hydration. * Medication:???Suggest an kxip-ybu-pqpsixd laxative as needed. * Addressing psychosocial factors: [...] of dean (more content not included)... Normal [facility] Magnetic resonance imaging r eportOrdered By: Johnathan Stephens on 12-02-2024 Study report [facility] Imaging Services [address] [place], [place] [id number] MRI Abd WITH and W/O Contrast MR#: [id number] Acct: [id number] Name: OLGA STAFFORD Rep #: [id number] : 1950 F 74 From: Margret Stephens MD PCP: Dr. Radha Rodas DO Status: REG CLI Study:MRI Abd WITH and W/O Contrast Date of E xam: 12/01/24 Exam# [id number] Ordering Dr: Mathieu Roy DO PROCEDURE: MRI [...] 3. Additional description as above. Reading Location: [id number] CC: Dr. Radha Rodas DO; Alejandro Roy, ~ Working Supervisor: Signed [facility] MRI Abd WITH and W/O Contras ton 12-01-2024 MRI Abd WITH and W/O Contrast [facility] Imaging Services [address] [place] [facility], [place] [id number] MRI Abd WITH and W/O Contrast MR#: [id number] Acct: [id number] Name: OLGA STAFFORD Rep #: [id number] : 1950 F 74 From: Johnathan Stephens MD PCP: Dr. Radha Rodas, DO Status: REG CLI Study: MRI Abd WITH and W/O Contrast Date of Exam: Exam# [id number] Ordering Dr: Alejandro Roy DO PROCEDURE: MRI [...] 3. Additional description as above. Reading Location: [id number] CC: Dr. Radha Rodas DO; Alejandro Roy DO Working Supervisor: Signed Normal [facility] EGD Reporton 11-17-2024 EGD Report [facility] Medical Records Department [address] [place] [address] EGD Report MR#: [id number] Acct: [id number] Name: OLGA STAFFORD Rep #: [id number] : 1950 74 From: Alejandro Roy DO PCP: Dr. Radha Rodas DO Status:REG [facility] Patient Name: Olga Staffrod Procedure Date: 11/17/2024 6:09 AM Date of [...] pathology results. Procedure Code(s): --- Professional --- 00018, Small intestinal endoscopy, enteroscopy beyond second portion of duodenum, not including ileum; with biopsy, single or multiple CPT copyright 2021 [employer] [place] [employer]. All rights reserved. The codes documented in this report are preliminary and upon roll up helper review may be revised to meet current compliance requirements. Alejandro Roy DO 11/17/2024 7:06:53 AM This report has been signed electronically. Number of Addenda: 0 Note Initiated On: 11/17/2024 6:09 AM 11/17/2407 Date Alejandro Roy DO Cosigner Signature: Date (if indicated) CC: Dr. Radha Rodas DO; Alejandro Roy DO Date Dictated: 11/17/24608 Date Transcribed: Working Supervisor: TRENT Signed Normal [facility] Immunohistochemical Stainson 11-17-2024 Immunohistochemical Stains Patient Age/Sex Location Account Attending Physician OLGA STAFFORD 74/F EN [id number] Alejandro Roy DO Specimen: [id number] Received: 11/17/24 Status: PATI Gracia Num: [id number] Spec Type: EGD BIOPSY Subm Dr: Alejandro [...] totally submitted in one cassette. Neto 11/17/2024 CPT:96304c5,93165 Patient Age/Sex Location Account Attending Physician OLGA STAFFORD 74/F EN [id number] Alejandro Roy DO Signed (signature on file) Dr. Inga Pantoja MD 11/23/24 0845 Normal [facility] Comment on above: Performed By: #### [facility] ####[facility] [address] [place], [address] MR/POSTOP.ANEon 11-17-2024 MR/POSTOP.[facility] Medical Records Department [address] [place] [address] Anesthesia Postop Eval I 11/17/24 0711 MR#: [id number] Acct: [id number] Name: OLGA STFAFORD Rep #: [id number] : 1950 74 From: Tomasz Hagan PCP: Dr. Radha Rodas, DO Status:REG SDC Y Race: C Location: [place] [address] Anesthesia: Postop Eval I Current Vital Signs [...] Tomasz Das Signature: Date CC: Signed Normal [facility] MR/CDVJGRRP3xw 11-17-2024 MR/POSTOPAN2 [facility] Medical Records Department [address] [place] [address] Anesthesia Postop Eval II 11/17/24 1009 MR#: [id number] Acct: [id number] Name: OLGA STAFFORD Rep #: [id number] : 1950 74 From: Nadine Matias CRNA PCP: Dr. Radha Rodas, DO Status:DEP [facility] Y Race: C Location: EN Anesthesia Postop [...] Vomiting: No 11/17/24 1010 Date Nadine Matias [employer] Cosigner Signature: Date CC: Signed Normal [facility] Hepatitis B/C Profile VIII10-26-2024 HEPATITIS INTER Normal [facility] Comment on above: Result Comment: TEST RESULTS [...] to indicate HCV infection. TESTING PERFORMED AT [facility]. ORIGINAL REPORT ON FILE IN LAB CONTAINS ADDITIONAL TEST SITE INFORMATION. Performed By: #### L 100.9950, L501.6710, L3100.3425, L101.9900, L3000.0800, L3130.0010, L503.0106, L500.4050, L100.0100 ####[facility] [address] [place], [address] LORENZO + Protein Elect, Serumon 10-26-2024 PROTEIN,TOTAL Normal [facility] Comment on above: Order Comment: N Result Comment: TEST RESULTS LIMITS LORENZO and PE, Serum Immunoglobulin G, Qn, Serum 1622 High mg/dL 586-1602 Immunoglobulin A, Qn, Serum 172 mg/dL 87-352 Immunoglobulin M, Qn, Serum 106 mg/dL 26-217 Protein, Total 7.2 g/dL 6.0-8.5 Albumin 3.9 g/dL 2.9-4.4 Rtaum-3-Eskisqgz 0.2 g/dL 0.0-0.4 Jvryc-1-Cvnuiuis 0.6 g/dL 0.4-1.0 Beta Globulin 0.9 g/dL 0.7-1.3 Gamma Globulin 1.6 g/dL 0.4-1.8 M-Fabián Not Observed g/dL Not Observed Globulin, Total 3.3 g/dL 2.2-3.9 A/G Ratio 1.2 0.7-1.7 Immunofixation Result, Serum Comment: Presence of monoclonal protein is unclear at this time. Suggest repeat in 3 to 6 months if clinically indicated. Please note: Protein electrophoresis scan will follow via computer, mail, or pier hand delivery. TESTING PERFORMED AT [facility]. ORIGINAL REPORT ON FILE IN LAB CONTAINS ADDITIONAL TEST SITE INFORMATION. Performed By: #### L 100.9950, L501.6710, L3100.3425, L101.9900, L3000.0800, L3130.0010, L503.0106, L500.4050, L100.0100 ####[facility] [address] [place], [address] Lerna Lambda Light Chainson 10-26-2024 FR KAPPA LT CHN Normal [facility] Comment on above: Result Comment: TEST RESULTS LIMITS Free K+L Lt Chains,Qn,S Free Lerna Lt Chains,S 33.3 High mg/L 3.3-19.4 Free Lambda Lt Chains,S 45.0 High mg/L 5.7-26.3 Lerna/Lambda Ratio,S 0.96 0.26-1.65 TESTING PERFORMED AT [facility]. ORIGINAL REPORT ON FILE IN LAB CONTAINS ADDITIONAL TEST SITE INFORMATION. Performed By: #### L 100.9950, L501.6710, L3100.3425, L101.9900, L3000.0800, L3130.0010, L503.0106, L500.4050, L100.0100 ####[facility] [address] [place] [place], [address] Oncology Visit Reporton 10-01 Oncology Visit Report [facility] [address] [place] [address] OFFICE VISIT Date of Service: 10/21/24 1401 MR#: [id number] Acct: [id number] Name: OLGA STAFFORD Rep #: [id number] : 1950 From: Meet Santos MD Age/Sex: 74/F Location: [facility] Status: Signed HPI Subjective Date of Service 10/21/24 Chief Complaint F/u for High IgG level. History of Present Illness 74-year-old woman was found to have high IgG level and referred for further evaluation. She denies weight loss, fever, night sweats or pain. Had repeat blood work/Skeletal survey and comes for follow up. [facility] Medical History (Updated 10/21/24 @ 17:18 [...] Hives Medications ???Medication ???Instructions ???Recorded ???Confirmed ???Type djllqdjc-iwv-iaee-FA-Ca carb-vit K 1 tab PO DAILY 03/25/19 [...] associated wi (more content not included)... Normal [facility] Gastroenterology Visit Repor ton 10-18-2024 Gastroenterology Visit Report [facility] Gastroenterology [address] [place] [address] OFFICE VISIT Date of Service: 10/18/24 MR#: [id number] Acct: [id number] Name: OLGA STAFFORD Rep #: [id number] : 1950 Provider: Alejandro Roy DO Age/Sex: 74/F Location: [facility] Status: Signed Intake Vital Signs 01/30/24 06:11 08/26/24 15:08 Height 5 ft 2 in 5 ft 2 in Intake Visit Reasons: 3 M FU Allergies Penicillins Allergy (Verified 08/26/24 15:04) Hives Medications ???Medication ???Instructions ???Recorded ???Confirmed ???Type ctvxgtho-zfh-ksbe-FA-Ca carb-vit K 1 tab PO DAILY 03/25/19 [...] she underwent imaging by her PCP at [facility] that showed a large amount of stool and delayed gastric emptying on a gastric emptying study. From 2013 and 2021 she had random bouts of vomiting probably eating types of foods such as, chickpeas, fish, pepitas, black beans, pecans and walnuts. Her treatment up until 2021 was food avoidance. In July 2021 she had saw an pneumatic tester mechanic at previous clinic and was diagnosed with [...] Psychiatric: Positive (more content not included)... Normal [facility] Absolute lymphocyte countOrd ered By: Meet Santos on 10-14-2024 Lymphocytes Auto (Unsp spec) [#/Vol] 2.53 10*3/uL 0.83-4.51 [facility] Absolute neutrophil countOrd ered By: Meet Santos on 10-14-2024 Neutrophils (Bld) [#/Vol] 1.5 10*3/uL Low 2.0-7.7 [facility] Albumin Elph [Mass/Vol]Order ed By: Meet Santos on 10-14-2024 Albumin [Mass/Vol] Not Reportable [facility] Anion gap in Serum or Plasma Ordered By: Meet Santos on 10-14-2024 Anion gap [Moles/Vol] 9 mmol/L 5-15 [facility] Automated lymphocyte count a s percentage of total leukocytesOrdered By: Meet Santos on 10-14-2024 Lymphocytes/100 WBC Auto (Unsp spec) 56.3 % High 19-41 [facility] BUN/creatinine ratioOrdered By: Meet Santos on 10-14-2024 Urea nitrogen/Creatinine [Mass ratio] 23.1 mg/mg High 10-20 [facility] Basophil percentageOrdered B y: Meet Santos on 10-14-2024 Basophils/100 WBC (Bld) 1.1 % High 0-1 [facility] Bilirubin, totalOrdered By: Meet Santos on 10-14-2024 Bilirubin [Mass/Vol] 0.43 mg/dL 0.00-1.30 [facility] CBC W/Diff, Automatedon 05-06 06-2024 Absolute Lymph 2.53 X10 3/uL Normal 0.83-4.51 [facility] Comment on above: Performed By: #### L 100.9950, L501.6710, L3100.3425, L101.9900, L3000.0800, L3130.0010, L503.0106, L500.4050, L100.0100 ####[facility] [address] [place], [address] Absolute Neut 1.5 X10 3/uL Low 2.0-7.7 [facility] Comment on above: Performed By: #### L 100.9950, L501.6710, L3100.3425, L101.9900, L3000.0800, L3130.0010, L503.0106, L500.4050, L100.0100 ####[facility] [address] [place], [place], [phone] Basophils/100 WBC (Bld) 1.1 % High 0-1 [facility] Comment on above: Performed By: #### L 100.9950, L501.6710, L3100.3425, L101.9900, L3000.0800, L3130.0010, L503.0106, L500.4050, L100.0100 ####[facility] [address] [place], [address] Eosinophils/100 WBC (Bld) 0.4 % Normal 0-5 [facility] Comment on above: Performed By: #### L 100.9950, L501.6710, L3100.3425, L101.9900, L3000.0800, L3130.0010, L503.0106, L500.4050, L100.0100 ####[facility] [address] [place], [address] Erythrocyte distribution width (RBC) [Ratio] 13.4 % Normal 11.6-14.6 [facility] Comment on above: Performed By: #### L 100.9950, L501.6710, L3100.3425, L101.9900, L3000.0800, L3130.0010, L503.0106, L500.4050, L100.0100 ####[facility] [address] [place], [address] Hematocrit (Bld) [Volume fraction] 37.4 % Normal 37-47 [facility] Comment on above: Performed By: #### L 100.9950, L501.6710, L3100.3425, L101.9900, L3000.0800, L3130.0010, L503.0106, L500.4050, L100.0100 ####[facility] [address] [place], [address] Hemoglobin (Bld) [Mass/Vol] 12.8 g/dL Normal 12.0-15.0 [facility] Comment on above: Performed By: #### L 100.9950, L501.6710, L3100.3425, L101.9900, L3000.0800, L3130.0010, L503.0106, L500.4050, L100.0100 ####[facility] [address] [place], [address] IG% 0.000 Normal 0.0-0.9 [facility] Comment on above: Result Comment: IG% - Immature Granulocytes (promyelocytes, myelocytes and metamyelocytes) > 1% indicates that a LEFT SHIFT is Present. Performed By: #### L 100.9950, L501.6710, L3100.3425, L101.9900, L3000.0800, L3130.0010, L503.0106, L500.4050, L100.0100 ####[facility] [address] [place], [address] Lymphocytes/100 WBC (Bld) 56.3 % High 19-41 [facility] Comment on above: Performed By: #### L 100.9950, L501.6710, L3100.3425, L101.9900, L3000.0800, L3130.0010, L503.0106, L500.4050, L100.0100 ####[facility] [address] [place], [address] MCH (RBC) [Entitic mass] 29.4 pg Normal 27.0-32.0 [facility] Comment on above: Performed By: #### L 100.9950, L501.6710, L3100.3425, L101.9900, L3000.0800, L3130.0010, L503.0106, L500.4050, L100.0100 ####[facility] [address] [place], [address] MCHC (RBC) [Mass/Vol] 34.2 g/dL Normal 32-36 [facility] Comment on above: Performed By: #### L 100.9950, L501.6710, L3100.3425, L101.9900, L3000.0800, L3130.0010, L503.0106, L500.4050, L100.0100 ####[facility] [address] [place], [address] MCV (RBC) [Entitic vol] 86.0 fL Normal 81-99 [facility] Comment on above: Performed By: #### L 100.9950, L501.6710, L3100.3425, L101.9900, L3000.0800, L3130.0010, L503.0106, L500.4050, L100.0100 ####[facility] [address] [place], [address] Monocytes/100 WBC (Bld) 8.0 % Normal 0-10 [facility] Comment on above: Performed By: #### L 100.9950, L501.6710, L3100.3425, L101.9900, L3000.0800, L3130.0010, L503.0106, L500.4050, L100.0100 ####[facility] [address] [place], [address] Neutrophils/100 WBC (Bld) 34.2 % Low 47-70 [facility] Comment on above: Performed By: #### L 100.9950, L501.6710, L3100.3425, L101.9900, L3000.0800, L3130.0010, L503.0106, L500.4050, L100.0100 ####[facility] [address] [place], [address] Nucleated RBC (Bld) [#/Vol] 0 10*3/uL Normal 0-5 [facility] Comment on above: Performed By: #### L 100.9950, L501.6710, L3100.3425, L101.9900, L3000.0800, L3130.0010, L503.0106, L500.4050, L100.0100 ####[facility] [address] [place], [address] Platelet mean volume (Bld) [Entitic vol] 9.0 fL Normal 6.2-12.0 [facility] Comment on above: Performed By: #### L 100.9950, L501.6710, L3100.3425, L101.9900, L3000.0800, L3130.0010, L503.0106, L500.4050, L100.0100 ####[facility] [address] [place], [address] Platelets (Bld) [#/Vol] 174 10*3/uL Normal 150-450 [facility] Comment on above: Performed By: #### L 100.9950, L501.6710, L3100.3425, L101.9900, L3000.0800, L3130.0010, L503.0106, L500.4050, L100.0100 ####[facility] [address] [place], [address] RBC (Bld) [#/Vol] 4.35 10*6/uL Normal 4.2-5.4 [facility] Comment on above: Performed By: #### L 100.9950, L501.6710, L3100.3425, L101.9900, L3000.0800, L3130.0010, L503.0106, L500.4050, L100.0100 ####[facility] [address] [place], [address] RDW SD 42.3 fl Normal 35.1-43.9 [facility] Comment on above: Performed By: #### L 100.9950, L501.6710, L3100.3425, L101.9900, L3000.0800, L3130.0010, L503.0106, L500.4050, L100.0100 ####[facility] [address] [place], [address] WBC (Bld) [#/Vol] 4.5 10*3/uL Normal 4.4-11.0 [facility] Comment on above: Performed By: #### L 100.9950, L501.6710, L3100.3425, L101.9900, L3000.0800, L3130.0010, L503.0106, L500.4050, L100.0100 ####[facility] [address] [place], [address] CRPon 10-14-2024 C-REACTIVE PROT < 3.00 Normal 0.0-3.0 [facility] Comment on above: Performed By: #### L 100.9950, L501.6710, L3100.3425, L101.9900, L3000.0800, L3130.0010, L503.0106, L500.4050, L100.0100 ####[facility] [address] [place], [address] Carbon dioxide, total [Moles /volume] in Central venous bloodOrdered By: Meet Santos on 10-14-2024 CO2 [Moles/Vol] 25.7 mmol/L 21.0-32.0 [facility] Chloride assayOrdered By: Sherlyn Santos on 10-14-2024 Chloride [Moles/Vol] 104 mmol/L 98-108 [facility] Comprehensive Metabolic Prof ilon 10-14-2024 Albumin [Mass/Vol] 4.5 g/dL Normal 3.4-4.8 [facility] Comment on above: Performed By: #### L 100.9950, L501.6710, L3100.3425, L101.9900, L3000.0800, L3130.0010, L503.0106, L500.4050, L100.0100 ####[facility] [address] [place], [address] Albumin/Globulin [Mass ratio] 1.5 {ratio} Normal 0.9-2.4 [facility] Comment on above: Performed By: #### L 100.9950, L501.6710, L3100.3425, L101.9900, L3000.0800, L3130.0010, L503.0106, L500.4050, L100.0100 ####[facility] [address] [place], [address] ALK PHOS 67 U/L Normal 35-104 [facility] Comment on above: Performed By: #### L 100.9950, L501.6710, L3100.3425, L101.9900, L3000.0800, L3130.0010, L503.0106, L500.4050, L100.0100 ####[facility] [address] [place], [phone]([phone] ALT [Catalytic activity/Vol] 36 U/L High <=34 [facility] Comment on above: Performed By: #### L 100.9950, L501.6710, L3100.3425, L101.9900, L3000.0800, L3130.0010, L503.0106, L500.4050, L100.0100 ####[facility] [address] [place], [place], [phone] AST [Catalytic activity/Vol] 42 U/L High <=31 [facility] Comment on above: Performed By: #### L 100.9950, L501.6710, L3100.3425, L101.9900, L3000.0800, L3130.0010, L503.0106, L500.4050, L100.0100 ####[facility] [address] [place], [address] Bilirubin [Mass/Vol] 0.43 mg/dL Normal 0.00-1.30 [facility] Comment on above: Performed By: #### L 100.9950, L501.6710, L3100.3425, L101.9900, L3000.0800, L3130.0010, L503.0106, L500.4050, L100.0100 ####[facility] [address] [place], [address] BUN/CRE 23.1 RATIO High 10-20 [facility] Comment on above: Performed By: #### L 100.9950, L501.6710, L3100.3425, L101.9900, L3000.0800, L3130.0010, L503.0106, L500.4050, L100.0100 ####[facility] [address] [place], [place], [phone] Calcium [Mass/Vol] 9.6 mg/dL Normal 7.6-11.0 [facility] Comment on above: Performed By: #### L 100.9950, L501.6710, L3100.3425, L101.9900, L3000.0800, L3130.0010, L503.0106, L500.4050, L100.0100 ####[facility] [address] [place], [address] Chloride [Moles/Vol] 104 mmol/L Normal 98-108 [facility] Comment on above: Performed By: #### L 100.9950, L501.6710, L3100.3425, L101.9900, L3000.0800, L3130.0010, L503.0106, L500.4050, L100.0100 ####[facility] [address] [place], [place], [phone] CO2 [Moles/Vol] 25.7 mmol/L Normal 21.0-32.0 [facility] Comment on above: Performed By: #### L 100.9950, L501.6710, L3100.3425, L101.9900, L3000.0800, L3130.0010, L503.0106, L500.4050, L100.0100 ####[facility] [address] [place], [place], [phone](153) Creatinine [Mass/Vol] 0.73 mg/dL Normal 0.70-1.20 [facility] Comment on above: Performed By: #### L 100.9950, L501.6710, L3100.3425, L101.9900, L3000.0800, L3130.0010, L503.0106, L500.4050, L100.0100 ####[facility] [address] [place], [address] GAP 9 Normal 5-15 [facility] Comment on above: Performed By: #### L 100.9950, L501.6710, L3100.3425, L101.9900, L3000.0800, L3130.0010, L503.0106, L500.4050, L100.0100 ####[facility] [address] [place], [address] GFR/1.73 sq M.predicted among non-blacks MDRD (S/P/Bld) [Vol rate/Area] 86 mL/min/{1.73_m2} Normal >60 [facility] Comment on above: Result Comment: mL/m in/1.73m2 CKD-EPI Creatinine Equation (2020) Performed By: #### L 100.9950, L501.6710, L3100.3425, L101.9900, L3000.0800, L3130.0010, L503.0106, L500.4050, L100.0100 ####[facility] [address] [place], [address] Globulin (S) [Mass/Vol] 3.1 g/dL Normal 2.2-4.2 [facility] Comment on above: Performed By: #### L 100.9950, L501.6710, L3100.3425, L101.9900, L3000.0800, L3130.0010, L503.0106, L500.4050, L100.0100 ####[facility] [address] [place], [address] Glucose [Mass/Vol] 92 mg/dL Normal 70-99 [facility] Comment on above: Performed By: #### L 100.9950, L501.6710, L3100.3425, L101.9900, L3000.0800, L3130.0010, L503.0106, L500.4050, L100.0100 ####[facility] [address] [place], [address] Potassium [Moles/Vol] 3.9 mmol/L Normal 3.3-5.1 [facility] Comment on above: Performed By: #### L 100.9950, L501.6710, L3100.3425, L101.9900, L3000.0800, L3130.0010, L503.0106, L500.4050, L100.0100 ####[facility] [address] [place], [address] Sodium [Moles/Vol] 139 mmol/L Normal 133-145 [facility] Comment on above: Performed By: #### L 100.9950, L501.6710, L3100.3425, L101.9900, L3000.0800, L3130.0010, L503.0106, L500.4050, L100.0100 ####[facility] [address] [place], [address] T PROT 7.5 g/dL Normal 5.9-8.4 [facility] Comment on above: Performed By: #### L 100.9950, L501.6710, L3100.3425, L101.9900, L3000.0800, L3130.0010, L503.0106, L500.4050, L100.0100 ####[facility] [address] [place], [address] Urea nitrogen [Mass/Vol] 17 mg/dL Normal 4-19 [facility] Comment on above: Performed By: #### L 100.9950, L501.6710, L3100.3425, L101.9900, L3000.0800, L3130.0010, L503.0106, L500.4050, L100.0100 ####[facility] [address] [place], [address] Eosinophil percentageOrdered By: Meet Santos on 10-14-2024 Eosinophils/100 WBC (Bld) 0.4 % 0-5 [facility] Erythrocyte Sed Rateon 10-14 SED RATE 5 mm/hr Normal 0-30 [facility] Comment on above: Performed By: #### L 100.9950, L501.6710, L3100.3425, L101.9900, L3000.0800, L3130.0010, L503.0106, L500.4050, L100.0100 ####[facility] [address] [place], [address] Erythrocyte distribution wid th ratioOrdered By: [place] Danielle on 10-14-2024 Erythrocyte distribution width (RBC) [Ratio] 13.4 % 11.6-14.6 [facility] Erythrocyte distribution wid th standard deviationOrdered By: [facility] on 10-14-2024 Erythrocyte distribution width (RBC) [Ratio] 42.3 fl 35.1-43.9 [facility] Erythrocyte sedimentation ra teOrdered By: Meet Santos on 10-14-2024 ESR (Bld) [Velocity] 5 mm/h 0-30 [facility] Glomerular filtration rate ( GFR) estimation/1.73 sq m using serum, plasma, or whole bOrdered By: Meet Santos on 10-14-2024 GFR/1.73 sq M.predicted among non-blacks MDRD (S/P/Bld) [Vol rate/Area] 86 mL/min/{1.73_m2} >60 [facility] Comment on above: mL/min/1.73m2 CKD-EP I Creatinine Equation (2020) Hematocrit Auto (Bld) [Volum e fraction]Ordered By: [facility] on 10-14-2024 Hematocrit (Bld) [Volume fraction] 37.4 % 37-47 [facility] Hemoglobin measurementOrdere d By: Meet Santos on 10-14-2024 Hemoglobin (Bld) [Mass/Vol] 12.8 g/dL 12.0-15.0 [facility] Immature granulocytes/100 WB C Auto (Bld)Ordered By: [facility] on 10-14-2024 Immature granulocytes/100 WBC (Bld) 0.000 % 0.0-0.9 [facility] Comment on above: IG% - Immature Granu locytes (promyelocytes, myelocytes and metamyelocytes) > 1% indicates that a LEFT SHIFT is Present. Interpretation of serum or p lasma protein pattern by immunofixation (narrative resultOrdered By: Meet Santos on 05-15-2025 Protein Fractions Immunofixation Issac [Interp] Not Reportable [facility] Laboratory - Chemistry and C hemistry - challengeOrdered By: Meet Santos on 10-14-2024 AST [Catalytic activity/Vol] 42 U/L High <32 [facility] MCV (mean corpuscular volume ) determinationOrdered By: Meet Santos on 10-14-2024 MCV (RBC) [Entitic vol] 86.0 fL 81-99 [facility] Mean corpuscular hemoglobin (MCH) determinationOrdered By: Meet [facility] on 10-14-2024 MCH (RBC) [Entitic mass] 29.4 pg 27.0-32.0 [facility] Mean corpuscular hemoglobin concentration (MCHC) determinationOrdered By: Meet [facility] on 10-14-2024 MCHC (RBC) [Mass/Vol] 34.2 g/dL 32-36 [facility] Mean platelet volume determi nationOrdered By: Meet [facility] on 10-14-2024 Platelet mean volume (Bld) [Entitic vol] 9.0 fL 6.2-12.0 [facility] Monocyte percentageOrdered B y: [facility] on 10-14-2024 Monocytes/100 WBC (Bld) 8.0 % 0-10 [facility] Neutrophil percentageOrdered By: [facility] on 10-14-2024 Neutrophils/100 WBC (Bld) 34.2 % Low 47-70 [facility] No Panel InformationOrdered By: Meet Giang on 10-14-2024 Hepatitis Interpretation See comment [facility] Comment on above: TEST RESULTS LIMITSV iral [...] to indicate HCV infection. TESTING PERFORMED AT [facility]. ORIGINAL REPORT ON FILE IN LAB CONTAINS ADDITIONAL TEST SITE INFORMATION. Nucleated red blood cell per centageOrdered By: Meet Santos on 10-14-2024 Nucleated RBC/100 WBC (Bld) [Ratio] 0 % 0-5 [facility] Platelet countOrdered By: Sherlyn Santos on 10-14-2024 Platelets (Bld) [#/Vol] 174 10*3/uL 150-450 [facility] Potassium measurement (mass/ volume)Ordered By: Meet Santos on 10-14-2024 Potassium (Unsp spec) [Mass/Vol] 3.9 mmol/L 3.3-5.1 [facility] RBC Auto (Bld) [#/Vol]Ordere d By: Meet Santos on 10-14-2024 RBC (Bld) [#/Vol] 4.35 10*6/uL 4.2-5.4 [facility] Retic Panelon 10-14-2024 IM RET FRACTION 6.20 Normal 3.00-15.90 [facility] Comment on above: Performed By: #### L 100.9950, L501.6710, L3100.3425, L101.9900, L3000.0800, L3130.0010, L503.0106, L500.4050, L100.0100 ####[facility] [address] [place], [place], [phone] RET-HE 32.9 pg Normal 30-35 [facility] Comment on above: Performed By: #### L 100.9950, L501.6710, L3100.3425, L101.9900, L3000.0800, L3130.0010, L503.0106, L500.4050, L100.0100 ####[facility] [address] [place], [place], [phone] Retic Count 1.42 Normal 0.5-1.5 [facility] Comment on above: Performed By: #### L 100.9950, L501.6710, L3100.3425, L101.9900, L3000.0800, L3130.0010, L503.0106, L500.4050, L100.0100 ####[facility] [address] [facility] [place], [place], [phone] Reticulocyte hemoglobin equi valent (RET-He) measurementOrdered By: Meet Santos on 10-14-2024 Hemoglobin (Reticulocytes) [Entitic mass] 32.9 pg 30-35 [facility] Reticulocytes Auto (Bld) [#/ Vol]Ordered By: Meet Santos on 10-14-2024 Reticulocytes/100 RBC (Bld) 1.42 % 0.5-1.5 [facility] Serum creatinine measurement (mass/volume)Ordered By: Meet Santos on 10-14-2024 Creatinine [Mass/Vol] 0.73 mg/dL 0.70-1.20 [facility] Serum globulin measurementOr dered By: Meet Santos on 10-14-2024 Globulin (S) [Mass/Vol] 3.1 g/dL 2.2-4.2 [facility] Serum glucose measurement (m ass/volume)Ordered By: Meet Santos on 10-14-2024 Glucose [Mass/Vol] 92 mg/dL 70-99 [facility] Serum immunoglobulin kappa l ight chains/immunoglobulin lambda light chains mass ratioOrdered By: Meet Santos on 10-14-2024 Immunoglobulin light chains.kappa/Immunoglobul in light chains.lambda (S) [Mass ratio] Not Reportable [facility] Serum or plasma C reactive p rotein measurement (mass/volume)Ordered By: Meet Santos on 10-14-2024 CRP [Mass/Vol] mg/L 0.0-3.0 [facility] Serum or plasma IgA measurem ent (mass/volume)Ordered By: Meet Santos on 10-14-2024 IgA [Mass/Vol] Not Reportable [facility] Serum or plasma IgG measurem ent (mass/volume)Ordered By: Meet Santos on 10-14-2024 IgG [Mass/Vol] Not Reportable [facility] Serum or plasma alanine hoff otransferase (ALT) measurementOrdered By: Meet Santos on 10-14-2024 ALT [Catalytic activity/Vol] 36 U/L High <35 [facility] Serum or plasma albumin benito urement (mass/volume)Ordered By: Meet Santos on 10-14-2024 Albumin [Mass/Vol] 4.5 g/dL 3.4-4.8 [facility] Serum or plasma albumin/glob ulin mass ratioOrdered By: Meet Santos on 10-14-2024 Albumin/Globulin [Mass ratio] 1.5 {ratio} 0.9-2.4 [facility] Serum or plasma alkaline ruiz sphatase measurementOrdered By: Meet Santos on 10-14-2024 ALP [Catalytic activity/Vol] 67 U/L 35-104 [facility] Serum or plasma alpha 1 glob ulin measurement by electrophoresis (mass/volume)Ordered By: Meet Santos on 10-14-2024 Alpha 1 globulin Elph [Mass/Vol] Not Reportable [facility] Serum or plasma beta globuli n measurement by electrophoresis (mass/volume)Ordered By: Meet Santos on 10-14-2024 Beta globulin Elph [Mass/Vol] Not Reportable [facility] Serum or plasma calcium benito urement (mass/volume)Ordered By: Meet Danielle on 10-14-2024 Calcium [Mass/Vol] 9.6 mg/dL 7.6-11.0 [facility] Serum or plasma gamma globul in measurement by electrophoresis (mass/volume)Ordered By: Meet Giangolivia on 10-14-2024 Gamma globulin Elph [Mass/Vol] Not Reportable [facility] Serum or plasma immunoglobul in kappa light chains measurement (mass/volume)Ordered By: Meet Danielle on 10-14-2024 Immunoglobulin light chains.kappa [Mass/Vol] See comment [facility] Comment on above: TEST RESULTS LIMITSF ree K+L Lt Chains,Qn,S Free Lerna Lt Chains,S 33.3 High mg/L 3.3-19.4 Free Lambda Lt Chains,S 45.0 High mg/L 5.7-26.3 Lerna/Lambda Ratio,S 0.96 0.26-1.65 TESTING PERFORMED AT [facility]. ORIGINAL REPORT ON FILE IN LAB CONTAINS ADDITIONAL TEST SITE INFORMATION. Serum or plasma protein benito urement (mass/volume)Ordered By: Meet Danielle on 10-14-2024 Protein [Mass/Vol] See comment [facility] Comment on above: TEST RESULTS LIMITSI FE and PE, Serum Immunoglobulin G, Qn, Serum 1622 High mg/dL 586-1602 Immunoglobulin A, Qn, Serum 172 mg/dL 87-352 Immunoglobulin M, Qn, Serum 106 mg/dL 26-217 Protein, Total 7.2 g/dL 6.0-8.5 Albumin 3.9 g/dL 2.9-4.4 Cznvh-5-Iyorpwws 0.2 g/dL 0.0-0.4 Srrlg-9-Rkrhllnv 0.6 g/dL 0.4-1.0 Beta Globulin 0.9 g/dL [...] computer, mail, orcourier delivery. TESTING PERFORMED AT [facility]. ORIGINAL REPORT ON FILE IN LAB CONTAINS ADDITIONAL TEST SITE INFORMATION. Serum or plasma urea nitroge n measurement (mass/volume)Ordered By: Meet Santos on 10-14-2024 Urea nitrogen [Mass/Vol] 17 mg/dL 4-19 [facility] Sodium levelOrdered By: Ramakrishna Santos on 10-14-2024 Sodium [Moles/Vol] 139 mmol/L 133-145 [facility] Total proteinOrdered By: Kevin Santos on 10-14-2024 Protein [Mass/Vol] 7.5 g/dL 5.9-8.4 [facility] Vitamin B12on 10-14-2024 Cobalamin (Vitamin B12) [Mass/Vol] 660 pg/mL Normal 180-914 [facility] Comment on above: Performed By: #### L 100.9950, L501.6710, L3100.3425, L101.9900, L3000.0800, L3130.0010, L503.0106, L500.4050, L100.0100 ####[facility] [address] [place], [place], [phone] Vitamin B12 ser/plasOrdered By: Meet Santos on 10-14-2024 Cobalamin (Vitamin B12) [Mass/Vol] 660 pg/mL 180-914 [facility] White blood cell (WBC) count Ordered By: Meet Santos on 10-14-2024 WBC (Bld) [#/Vol] 4.5 10*3/uL 4.4-11.0 [facility] Bone Survey Comp(Axial Appen d)on 09-08-2024 Bone Survey Comp(Axial Append) [facility] Imaging Services [address] [place] [address] Bone Survey Comp(Axial Append) MR#: [id number] Acct: [id number] Name: OLGA STAFFORD Rep #: [id number] : 1950 F 74 From: Johnathan Gutierrez MD PCP: Dr. Radha Rodas DO Status: REG CLI Study: Bone Survey Comp(Axial Append) Date of Exam: 0 09/08/24 Exam# [id number] Ordering Dr: Meet Santos MD EXAM: XR [...] Meet Santos MD; Dr. Radha Rodas DO Working Supervisor: Signed Normal [facility] ABD Limited w/ Elastographyo n 09-06-2024 ABD Limited w/ Elastography [facility] Imaging Services [address] [place] [address] ABD Limited w/ Elastography MR#: [id number] Acct: [id number] Name: OLGA STAFFORD #: [id number] : 1950 F 74 From: Johnathan Stephens MD PCP: Dr. 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 [employer] S-shear wave elastography was performed for non-invasive [...] (15kPa): Significant fibrosis / cirrhosis Reading Location: [facility] CC: Dr. Meet Santos MD; Dr. Radha Rodas DO Working Supervisor: Signed Normal [facility] Oncology Visit Reporton 08-01 Oncology Visit Report [facility] [address] [place], [place] [address] 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 [facility] Medical History (Updated 08/26/24 @ 16:17 [...] Hives Medications ???Medication ???Instructions ???Recorded ???Confirmed ???Type tscwxiwu-zoc-hsbz-FA-Ca carb-vit K 1 tab PO DAILY 03/25/19 08/26/24 History 18 mg iron-400 mc (more content not included)... Normal [facility] IgG Subclasseson 07-13-2024 IgG, SUBCLASS 1 1170 mg/dL High 248-810 [facility] Comment on above: Performed By: #### L 3200.0500 ####[facility] [address] [place], [address] IgG, SUBCLASS 2 102 mg/dL Low 130-555 [facility] Comment on above: Performed By: #### L 3200.0500 ####[facility] [address] [place], [address] IgG, SUBCLASS 3 102 mg/dL Normal 15-102 [facility] Comment on above: Performed By: #### L 3200.0500 ####[facility] [address] [place], [address] IgG, SUBCLASS 4 19 mg/dL Normal 2-96 [facility] Comment on above: Result Comment: Perf ormed at: - [facility] [id number] Preparer Samples And Repairs: Cristhian Nath PhD, Phone: [phone] Performed By: #### L 3200.0500 ####[facility] [address] [place], [address] IGG,QUANT 1666 mg/dL High 586-1602 [facility] Comment on above: Performed By: #### L 3200.0500 ####[facility] [address] [place], [address] IgG [Mass/Vol]Ordered By: Arelis Mena on 07-12-2024 Immunoglobulin G Total 1666 mg/dL High 586-1602 [facility] IgG subclass 1 (S) [Mass/Vol ]Ordered By: Azul Mena on 07-12-2024 Immunoglobulin G1 1170 mg/dL High 248-810 [facility] IgG subclass 2 (S) [Mass/Vol ]Ordered By: Azul Mena on 07-12-2024 Immunoglobulin G2 102 mg/dL Low 130-555 [facility] IgG subclass 3 (S) [Mass/Vol ]Ordered By: Azul Mena on 07-12-2024 Immunoglobulin G3 102 mg/dL 15-102 [facility] Immunoglobulin G4 measuremen tOrdered By: Azul Mena on 07-12-2024 Immunoglobulin G4 19 mg/dL 2-96 [facility] Comment on above: Performed at: [facility] [address] [id number] Director: Cristhian Nath PhD, Phone: [phone] Serum IgG subclass 1 measure ment (mass/volume)Ordered By: Azul Mena on 07-12-2024 IgG subclass 1 (S) [Mass/Vol] 1170 mg/dL High 248-810 [facility] Serum IgG subclass 2 measure ment (mass/volume)Ordered By: Azul Mena on 07-12-2024 IgG subclass 2 (S) [Mass/Vol] 102 mg/dL Low 130-555 [facility] Serum IgG subclass 3 measure ment (mass/volume)Ordered By: Azul Mena on 07-12-2024 IgG subclass 3 (S) [Mass/Vol] 102 mg/dL 15-102 [facility] Serum or plasma IgG measurem ent (mass/volume)Ordered By: Azul Mena on 07-12-2024 IgG [Mass/Vol] 1666 mg/dL High 586-1602 [facility] DIVYA Comprehensive Panelon ANTI-DNA (DS)AB Normal [facility] Comment on above: Result Comment: TEST RESULTS LIMITS Antinuclear Ab 9 by Multiplex Anti-DNA (DS) Ab Qn <1 IU/mL 0-9 Negative <5 Equivocal 5 - 9 Positive >9 [employer] Antibodies 0.3 AI 0.0-0.9 Baez Antibodies <0.2 [...] Sm (anti-Baez) SLE 15 - 30% --------- [employer] Mixed Connective Tissue Disease 95% (U1 nRNP, SLE 30 - 50% anti-ribonucleoprotein) Polymyositis and/or Dermatomyositis 20% --------- Scl-70 (antiDNA Scleroderma (diffuse) 20 - 35% topoisomerase) Crest 13% --------- Sherlyn-1 Polymyositis and/or Dermatomyositis 20 - 40% --------- Centromere B Scleroderma - Crest variant 80% TESTING PERFORMED AT [facility]. ORIGINAL REPORT ON FILE IN LAB CONTAINS ADDITIONAL TEST SITE INFORMATION. Performed By: #### Lindsay 3100.5440 #### [facility] Laboratory [address] [place], [address] ANTISCLERODERM TNP Normal [facility] Comment on above: Performed By: #### Lindsay 3100.5440 #### [facility] Laboratory [address] [place], [place], [id number] ANCAon 07-08-2024 Atypical pANCA <1:20 Normal Neg:<1:20 [facility] Comment on above: Result Comment: The atypical pANCA pattern has been observed in a significant percentage of patients with ulcerative colitis, primary sclerosing cholangitis and autoimmune hepatitis. Performed By: #### L 500.4050, L3300.1800, L3300.1200, L3410.2400, L101.9900, L501.2450, L501.6710, L5500.0550, L504.2610, L3200.1100, L501.2400, L5500.0300 ####[facility] [address] [place], [place], [phone] Cytoplasmic Ab <1:20 Normal Neg:<1:20 [facility] Comment on above: Performed By: #### L 500.4050, L3300.1800, L3300.1200, L3410.2400, L101.9900, L501.2450, L501.6710, L5500.0550, L504.2610, L3200.1100, L501.2400, L5500.0300 ####[facility] [address] [place], [place], [phone] Perinuclear Ab. <1:20 Normal Neg:<1:20 [facility] Comment on above: Result Comment: The presence [...] L501.2450, L501.6710, L5500.0550, L504.2610, L3200.1100, L501.2400, L5500.0300 ####[facility] [address] [place], [place], [address] Hernandez Valdez 2024 A. ALTERNATA <0.10 Normal Class 0 [facility] Comment on above: Performed By: #### L 500.4050, L3300.1800, L3300.1200, L3410.2400, L101.9900, L501.2450, L501.6710, L5500.0550, L504.2610, L3200.1100, L501.2400, L5500.0300 ####[facility] [address] [place], [place], [phone] BERMUDA GRASS <0.10 Normal Class 0 [facility] Comment on above: Performed By: #### L 500.4050, L3300.1800, L3300.1200, L3410.2400, L101.9900, L501.2450, L501.6710, L5500.0550, L504.2610, L3200.1100, L501.2400, L5500.0300 ####[facility] [address] [place], [place], [id number] [place] <0.10 Normal Class 0 [facility] Comment on above: Performed By: #### L 500.4050, L3300.1800, L3300.1200, L3410.2400, L101.9900, L501.2450, L501.6710, L5500.0550, L504.2610, L3200.1100, L501.2400, L5500.0300 ####[facility] [address] [place], [place], [id number] CAT HAIR/DANDER <0.10 Normal Class 0 [facility] [place] Comment on above: Performed By: #### L 500.4050, L3300.1800, L3300.1200, L3410.2400, L101.9900, L501.2450, L501.6710, L5500.0550, L504.2610, L3200.1100, L501.2400, L5500.0300 ####[facility] [address] [place], [address] COMMENT Comment Normal . [facility] Comment on above: Result Comment: Annie esposito [...] L501.2450, L501.6710, L5500.0550, L504.2610, L3200.1100, L501.2400, L5500.0300 ####[facility] [address] [place], [address] D FARINAE MITE <0.10 Normal Class 0 [facility] Comment on above: Performed By: #### L 500.4050, L3300.1800, L3300.1200, L3410.2400, L101.9900, L501.2450, L501.6710, L5500.0550, L504.2610, L3200.1100, L501.2400, L5500.0300 ####[facility] [address] [place], [address] D PTERONYSSINUS <0.10 Normal Class 0 [facility] Comment on above: Performed By: #### L 500.4050, L3300.1800, L3300.1200, L3410.2400, L101.9900, L501.2450, L501.6710, L5500.0550, L504.2610, L3200.1100, L501.2400, L5500.0300 ####[facility] [address] [place], [place], [id number] DOG EPITHELIA <0.10 Normal Class 0 [facility] Comment on above: Performed By: #### L 500.4050, L3300.1800, L3300.1200, L3410.2400, L101.9900, L501.2450, L501.6710, L5500.0550, L504.2610, L3200.1100, L501.2400, L5500.0300 ####[facility] [address] [place], [place], [phone] ELM,AMER WHITE <0.10 Normal Class 0 [facility] Comment on above: Performed By: #### L 500.4050, L3300.1800, L3300.1200, L3410.2400, L101.9900, L501.2450, L501.6710, L5500.0550, L504.2610, L3200.1100, L501.2400, L5500.0300 ####[facility] [address] [place], [address] Mouse Urine <0.10 Normal Class 0 [facility] Comment on above: Result Comment: Perf ormed at: - Lab[address] [id number] Preparer Samples And Repairs: Talia Avendano MD, Phone: [phone] Performed By: #### L 500.4050, L3300.1800, L3300.1200, L3410.2400, L101.9900, L501.2450, L501.6710, L5500.0550, L504.2610, L3200.1100, L501.2400, L5500.0300 ####[facility] [address] [place], [address] OAK, WHITE <0.10 Normal Class 0 [facility] Comment on above: Performed By: #### L 500.4050, L3300.1800, L3300.1200, L3410.2400, L101.9900, L501.2450, L501.6710, L5500.0550, L504.2610, L3200.1100, L501.2400, L5500.0300 ####[facility] [address] [place], [address] [facility] <0.10 Normal Class 0 [facility] Comment on above: Performed By: #### L 500.4050, L3300.1800, L3300.1200, L3410.2400, L101.9900, L501.2450, L501.6710, L5500.0550, L504.2610, L3200.1100, L501.2400, L5500.0300 ####[facility] [address] [place], [address] [facility] <0.10 Normal Class 0 [facility] Comment on above: Performed By: #### L 500.4050, L3300.1800, L3300.1200, L3410.2400, L101.9900, L501.2450, L501.6710, L5500.0550, L504.2610, L3200.1100, L501.2400, L5500.0300 ####[facility] [address] [place], [address] Celiac Disease Profileon ENDOMYSIAL IGA Negative Normal Negative [facility] Comment on above: Performed By: #### L 500.4050, L3300.1800, L3300.1200, L3410.2400, L101.9900, L501.2450, L501.6710, L5500.0550, L504.2610, L3200.1100, L501.2400, L5500.0300 ####[facility] [address] [place], [address] tTG IGA <2 Normal 0-3 [facility] Comment on above: Result Comment: Nega tive 0 - 3 Weak Positive 4 - 10 Positive >10 Tissue Transglutaminase (tTG) has been identified as the endomysial antigen. Studies have demonstr- ated that endomysial IgA antibodies have over 99% specificity for gluten sensitive enteropathy. Performed By: #### L 500.4050, L3300.1800, L3300.1200, L3410.2400, L101.9900, L501.2450, L501.6710, L5500.0550, L504.2610, L3200.1100, L501.2400, L5500.0300 ####[facility] [address] [place], [address] Gastrin, Serumon 07-08-2024 GASTRIN 46 pg/mL Normal 0-115 [facility] Comment on above: Result Comment: Siem [facility] BabyJunk, Inculite 2000 Immunochemiluminometric assay (ICMA) Values obtained with different assay methods or kits cannot be used interchangeably. Results cannot be interpreted as absolute evidence of the presence or absence of malignant disease. Performed at: [address] [id number] Preparer Samples And Repairs: Cristhian Nath PhD, Phone: [phone] Performed at: [facility] [address] [id number] Preparer Samples And Repairs: Talia Avendano MD, Phone: [phone] Performed By: #### L 500.4050, L3300.1800, L3300.1200, L3410.2400, L101.9900, L501.2450, L501.6710, L5500.0550, L504.2610, L3200.1100, L501.2400, L5500.0300 ####[facility] [address] [place], [address] Immunoglobulins G/A/M/David IMMUNOGLOB A QN 185 mg/dL Normal 64-422 [facility] Comment on above: Order Comment: Y Performed By: #### L 500.4050, L3300.1800, L3300.1200, L3410.2400, L101.9900, L501.2450, L501.6710, L5500.0550, L504.2610, L3200.1100, L501.2400, L5500.0300 ####[facility] [address] [place], [address] IMMUNOGLOB E QN 29 IU/mL Normal 6-495 [facility] Comment on above: Order Comment: Y Performed By: #### L 500.4050, L3300.1800, L3300.1200, L3410.2400, L101.9900, L501.2450, L501.6710, L5500.0550, L504.2610, L3200.1100, L501.2400, L5500.0300 ####[facility] [address] [place], [address] IMMUNOGLOB G QN 1644 mg/dL High 586-1602 [facility] Comment on above: Order Comment: Y Performed By: #### L 500.4050, L3300.1800, L3300.1200, L3410.2400, L101.9900, L501.2450, L501.6710, L5500.0550, L504.2610, L3200.1100, L501.2400, L5500.0300 ####[facility] [address] [place], [address] IMMUNOGLOB M QN 111 mg/dL Normal 26-217 [facility] Comment on above: Order Comment: Y Performed By: #### L 500.4050, L3300.1800, L3300.1200, L3410.2400, L101.9900, L501.2450, L501.6710, L5500.0550, L504.2610, L3200.1100, L501.2400, L5500.0300 ####[facility] [address] [place], [place], [id number] L5500.0550on 07-08-2024 BEEF <0.10 Normal Class 0 [facility] Comment on above: Performed By: #### L 500.4050, L3300.1800, L3300.1200, L3410.2400, L101.9900, L501.2450, L501.6710, L5500.0550, L504.2610, L3200.1100, L501.2400, L5500.0300 ####[facility] [address] [place], [place], [phone] CHOCOLATE <0.10 Normal Class 0 [facility] Comment on above: Performed By: #### L 500.4050, L3300.1800, L3300.1200, L3410.2400, L101.9900, L501.2450, L501.6710, L5500.0550, L504.2610, L3200.1100, L501.2400, L5500.0300 ####[facility] [address] [place], [address] CODFISH <0.10 Normal Class 0 [facility] Comment on above: Performed By: #### L 500.4050, L3300.1800, L3300.1200, L3410.2400, L101.9900, L501.2450, L501.6710, L5500.0550, L504.2610, L3200.1100, L501.2400, L5500.0300 ####[facility] [address] [place], [place], [phone] CORN <0.10 Normal Class 0 [facility] Comment on above: Performed By: #### L 500.4050, L3300.1800, L3300.1200, L3410.2400, L101.9900, L501.2450, L501.6710, L5500.0550, L504.2610, L3200.1100, L501.2400, L5500.0300 ####[facility] [address] [place], [address] EGG, WHOLE <0.10 Normal Class 0 [facility] Comment on above: Performed By: #### L 500.4050, L3300.1800, L3300.1200, L3410.2400, L101.9900, L501.2450, L501.6710, L5500.0550, L504.2610, L3200.1100, L501.2400, L5500.0300 ####[facility] [address] [place], [address] MILK (COW) <0.10 Normal Class 0 [facility] Comment on above: Performed By: #### L 500.4050, L3300.1800, L3300.1200, L3410.2400, L101.9900, L501.2450, L501.6710, L5500.0550, L504.2610, L3200.1100, L501.2400, L5500.0300 ####[facility] [address] [place], [address] MUSSELS <0.10 Normal Class 0 [facility] Comment on above: Performed By: #### L 500.4050, L3300.1800, L3300.1200, L3410.2400, L101.9900, L501.2450, L501.6710, L5500.0550, L504.2610, L3200.1100, L501.2400, L5500.0300 ####[facility] [address] [place], [address] PEANUT <0.10 Normal Class 0 [facility] Comment on above: Performed By: #### L 500.4050, L3300.1800, L3300.1200, L3410.2400, L101.9900, L501.2450, L501.6710, L5500.0550, L504.2610, L3200.1100, L501.2400, L5500.0300 ####[facility] [address] [place], [address] PORK <0.10 Normal Class 0 [facility] Comment on above: Performed By: #### L 500.4050, L3300.1800, L3300.1200, L3410.2400, L101.9900, L501.2450, L501.6710, L5500.0550, L504.2610, L3200.1100, L501.2400, L5500.0300 ####[facility] [address] [place], [place], [phone] SALMON <0.10 Normal Class 0 [facility] Comment on above: Performed By: #### L 500.4050, L3300.1800, L3300.1200, L3410.2400, L101.9900, L501.2450, L501.6710, L5500.0550, L504.2610, L3200.1100, L501.2400, L5500.0300 ####[facility] [address] [place], [address] SHRIMP <0.10 Normal Class 0 [facility] Comment on above: Performed By: #### L 500.4050, L3300.1800, L3300.1200, L3410.2400, L101.9900, L501.2450, L501.6710, L5500.0550, L504.2610, L3200.1100, L501.2400, L5500.0300 ####[facility] [address] [place], [place], [phone] SOYBEAN <0.10 Normal Class 0 [facility] Comment on above: Performed By: #### L 500.4050, L3300.1800, L3300.1200, L3410.2400, L101.9900, L501.2450, L501.6710, L5500.0550, L504.2610, L3200.1100, L501.2400, L5500.0300 ####[facility] [address] [place], [place], [id number] TUNA <0.10 Normal Class 0 [facility] Comment on above: Performed By: #### L 500.4050, L3300.1800, L3300.1200, L3410.2400, L101.9900, L501.2450, L501.6710, L5500.0550, L504.2610, L3200.1100, L501.2400, L5500.0300 ####[facility] [address] [place], [address] WHEAT <0.10 Normal Class 0 [facility] Comment on above: Performed By: #### L 500.4050, L3300.1800, L3300.1200, L3410.2400, L101.9900, L501.2450, L501.6710, L5500.0550, L504.2610, L3200.1100, L501.2400, L5500.0300 ####[facility] [address] [place], [address] Albumin to globulin ratioOrd ered By: Alejandro Roy on 07-05-2024 Albumin/Globulin [Mass ratio] 1.0 {ratio} 0.9-2.4 [facility] Alternaria alternata IgE ser umOrdered By: Alejandro Roy on 07-05-2024 Alternaria alternata IgE Allergen <0.10 kU/L Class 0 [facility] Amylaseon 07-05-2024 AISHWARYA 67 U/L Normal 25-115 [facility] Comment on above: Performed By: #### L 500.4050, L3300.1800, L3300.1200, L3410.2400, L101.9900, L501.2450, L501.6710, L5500.0550, L504.2610, L3200.1100, L501.2400, L5500.0300 ####[facility] [address] [place], [address] Atypical perinuclear antineu trophil cytoplasmic antibodies measurementOrdered By: Alejandro Roy on 07-05-2024 Atypical p-ANCA <1:20 titer Neg:<1:20 [facility] Comment on above: The atypical pANCA p attern has been observed in asignificant percentage of patients with ulcerative colitis,primary sclerosing cholangitis and autoimmune hepatitis. Beef IgE Qn (S)Ordered By: Mathieu Roy on 07-05-2024 Beef Allergen (RAST) <0.10 kU/L Class 0 [facility] Bermuda grass IgE Qn (S)Orde red By: Alejandro Roy on 07-05-2024 Bermuda Grass Allergen <0.10 kU/L Class 0 [facility] Bilirubin, totalOrdered By: Alejandro Roy on 07-05-2024 Bilirubin [Mass/Vol] 0.40 mg/dL 0.20-1.00 [facility] Comment on above: For patients on eltr ombopag therapy, use of [facility] TBIL is not recommended. Blood urea nitrogen (BUN)/cr eatinine ratioOrdered By: Alejandro Roy on 07-05-2024 Urea nitrogen/Creatinine [Mass ratio] 30.7 mg/mg High 10-20 [facility] C-reactive protein measureme nt by high sensitivity methodOrdered By: Alejandro Roy on 07-05-2024 C-Reactive Protein Extended Range < 2.90 mg/L 0.0-3.0 [facility] Comment on above: C-Reactive Protein ( CRP) provides useful information for thediagnosis, therapy and monitoring of inflammatory processesand associated diseases. For the evaluation of Relative Riskfor Cardiovascular Disease, a High Sensitivity CRP (HSCRP)should be ordered. CRPon 07-05-2024 C-REACTIVE PROT < 2.90 Normal 0.0-3.0 [facility] Comment on above: Result Comment: C-Re active Protein (CRP) provides useful information for the diagnosis, therapy and monitoring of inflammatory processes and associated diseases. For the evaluation of Relative Risk for Cardiovascular Disease, a High Sensitivity CRP (HSCRP) should be ordered. Performed By: #### L 500.4050, L3300.1800, L3300.1200, L3410.2400, L101.9900, L501.2450, L501.6710, L5500.0550, L504.2610, L3200.1100, L501.2400, L5500.0300 ####[facility] [address] [place], [place], [phone] Carbon dioxide measurementOr dered By: Alejandro Roy on 07-05-2024 CO2 [Moles/Vol] 26.0 mmol/L 21.0-32.0 [facility] Cat dander IgE Qn (S)Ordered By: Alejandro Roy on 07-05-2024 Cat Dander IgE Allergen <0.10 kU/L Class 0 [facility] Centromere B antibody assayO rdered By: Alejandro Roy on 07-05-2024 Centromere B Antibody TNP [facility] Comment on above: Test not performed Chloride measurementOrdered By: Alejandro Roy on 07-05-2024 Chloride [Moles/Vol] 108 mmol/L High 98-107 [facility] Chocolate IgE serumOrdered B y: Alejandro Roy on 07-05-2024 Chocolate Allergen (RAST) <0.10 kU/L Class 0 [facility] Chromatin antibody assayOrde red By: Alejandro Roy on 07-05-2024 Antichromatin Antibodies TNP [facility] Comment on above: Test not performed Codfish IgE Qn (S)Ordered By : Alejandro Roy on 07-05-2024 Codfish Allergen (RAST) <0.10 kU/L Class 0 [facility] Comprehensive Metabolic Prof ilon 07-05-2024 Albumin [Mass/Vol] 4.0 g/dL Normal 3.2-5.0 [facility] Comment on above: Performed By: #### L 500.4050, L3300.1800, L3300.1200, L3410.2400, L101.9900, L501.2450, L501.6710, L5500.0550, L504.2610, L3200.1100, L501.2400, L5500.0300 ####[facility] [address] [place], [place], [phone] Albumin/Globulin [Mass ratio] 1.0 {ratio} Normal 0.9-2.4 [facility] Comment on above: Performed By: #### L 500.4050, L3300.1800, L3300.1200, L3410.2400, L101.9900, L501.2450, L501.6710, L5500.0550, L504.2610, L3200.1100, L501.2400, L5500.0300 ####[facility] [address] [place], [place], [phone] ALK P 69 U/L Normal 45-117 [facility] Comment on above: Performed By: #### L 500.4050, L3300.1800, L3300.1200, L3410.2400, L101.9900, L501.2450, L501.6710, L5500.0550, L504.2610, L3200.1100, L501.2400, L5500.0300 ####[facility] [address] [place], [place], [phone] ALT [Catalytic activity/Vol] 43 U/L Normal 13-56 [facility] Comment on above: Performed By: #### L 500.4050, L3300.1800, L3300.1200, L3410.2400, L101.9900, L501.2450, L501.6710, L5500.0550, L504.2610, L3200.1100, L501.2400, L5500.0300 ####[facility] [address] [place], [place], [phone] AST [Catalytic activity/Vol] 41 U/L High 15-37 [facility] Comment on above: Performed By: #### L 500.4050, L3300.1800, L3300.1200, L3410.2400, L101.9900, L501.2450, L501.6710, L5500.0550, L504.2610, L3200.1100, L501.2400, L5500.0300 ####[facility] [address] [place], [place], [phone] Bilirubin [Mass/Vol] 0.40 mg/dL Normal 0.20-1.00 [facility] Comment on above: Result Comment: For patients on eltrombopag therapy, use of [facility] TBIL is not recommended. Performed By: #### L 500.4050, L3300.1800, L3300.1200, L3410.2400, L101.9900, L501.2450, L501.6710, L5500.0550, L504.2610, L3200.1100, L501.2400, L5500.0300 ####[facility] [address] [place], [address] BUN/CRE 30.7 RATIO High 10-20 [facility] Comment on above: Performed By: #### L 500.4050, L3300.1800, L3300.1200, L3410.2400, L101.9900, L501.2450, L501.6710, L5500.0550, L504.2610, L3200.1100, L501.2400, L5500.0300 ####[facility] [address] [place], [address] CA,Total 9.1 mg/dL Normal 8.5-10.1 [facility] Comment on above: Performed By: #### L 500.4050, L3300.1800, L3300.1200, L3410.2400, L101.9900, L501.2450, L501.6710, L5500.0550, L504.2610, L3200.1100, L501.2400, L5500.0300 ####[facility] [address] [place], [address] Chloride [Moles/Vol] 108 mmol/L High 98-107 [facility] Comment on above: Performed By: #### L 500.4050, L3300.1800, L3300.1200, L3410.2400, L101.9900, L501.2450, L501.6710, L5500.0550, L504.2610, L3200.1100, L501.2400, L5500.0300 ####[facility] [address] [place], [place], [phone]) CO2 [Moles/Vol] 26.0 mmol/L Normal 21.0-32.0 [facility] Comment on above: Performed By: #### L 500.4050, L3300.1800, L3300.1200, L3410.2400, L101.9900, L501.2450, L501.6710, L5500.0550, L504.2610, L3200.1100, L501.2400, L5500.0300 ####[facility] [address] [place], [address]([phone]) Creatinine [Mass/Vol] 0.68 mg/dL Normal 0.55-1.02 [facility] Comment on above: Result Comment: The validity of the calculated GFR GFRAA in patients over 70 years has not been determined. Clinical correlation is essential. Performed By: #### L 500.4050, L3300.1800, L3300.1200, L3410.2400, L101.9900, L501.2450, L501.6710, L5500.0550, L504.2610, L3200.1100, L501.2400, L5500.0300 ####[facility] [address] [place], [place], [phone] EST GFR - AA 108 mL/min Normal >60 [facility] Comment on above: Result Comment: Afri can Citizen [place] GFR Calc Performed By: #### L 500.4050, L3300.1800, L3300.1200, L3410.2400, L101.9900, L501.2450, L501.6710, L5500.0550, L504.2610, L3200.1100, L501.2400, L5500.0300 ####[facility] [address] [place], [address] GAP 5 Normal 5-15 [facility] Comment on above: Performed By: #### L 500.4050, L3300.1800, L3300.1200, L3410.2400, L101.9900, L501.2450, L501.6710, L5500.0550, L504.2610, L3200.1100, L501.2400, L5500.0300 ####[facility] [address] [place], [place], [phone](834) GFR/1.73 sq M.predicted among non-blacks MDRD (S/P/Bld) [Vol rate/Area] 89 mL/min/{1.73_m2} Normal >60 [facility] Comment on above: Result Comment: Non- GFR Calc Performed By: #### L 500.4050, L3300.1800, L3300.1200, L3410.2400, L101.9900, L501.2450, L501.6710, L5500.0550, L504.2610, L3200.1100, L501.2400, L5500.0300 ####[facility] [address] [place], [address] Globulin (S) [Mass/Vol] 4.0 g/dL Normal 2.2-4.2 [facility] Comment on above: Performed By: #### L 500.4050, L3300.1800, L3300.1200, L3410.2400, L101.9900, L501.2450, L501.6710, L5500.0550, L504.2610, L3200.1100, L501.2400, L5500.0300 ####[facility] [address] [place], [address] Glucose [Mass/Vol] 99 mg/dL Normal 74-106 [facility] Comment on above: Performed By: #### L 500.4050, L3300.1800, L3300.1200, L3410.2400, L101.9900, L501.2450, L501.6710, L5500.0550, L504.2610, L3200.1100, L501.2400, L5500.0300 ####[facility] [address] [place], [address] Potassium [Moles/Vol] 3.6 mmol/L Normal 3.5-5.1 [facility] Comment on above: Performed By: #### L 500.4050, L3300.1800, L3300.1200, L3410.2400, L101.9900, L501.2450, L501.6710, L5500.0550, L504.2610, L3200.1100, L501.2400, L5500.0300 ####[facility] [address] [place], [place], [phone](846) Sodium [Moles/Vol] 139 mmol/L Normal 136-145 [facility] Comment on above: Performed By: #### L 500.4050, L3300.1800, L3300.1200, L3410.2400, L101.9900, L501.2450, L501.6710, L5500.0550, L504.2610, L3200.1100, L501.2400, L5500.0300 ####[facility] [address] [place], [place], [phone] T PROT 8.0 g/dL Normal 6.4-8.2 [facility] Comment on above: Performed By: #### L 500.4050, L3300.1800, L3300.1200, L3410.2400, L101.9900, L501.2450, L501.6710, L5500.0550, L504.2610, L3200.1100, L501.2400, L5500.0300 ####[facility] [address] [place], [place], [phone]) Urea nitrogen [Mass/Vol] 21 mg/dL High 7-18 [facility] Comment on above: Performed By: #### L 500.4050, L3300.1800, L3300.1200, L3410.2400, L101.9900, L501.2450, L501.6710, L5500.0550, L504.2610, L3200.1100, L501.2400, L5500.0300 ####[facility] [id number] [place], [address] [place] IgE Qn (S)Ordered By: Mathieu Roy on 07-05-2024 [place] Allergen (RAST) <0.10 kU/L Class 0 [facility] Cow milk IgE Qn (S)Ordered B y: Alejandro Roy on 07-05-2024 Cow's Milk Allergen <0.10 kU/L Class [address] [facility] DNA double strand Ab Qn (S)O rdered By: Alejandro Roy on 07-05-2024 Anti-Double Strand DNA Antibody See comment [facility] Comment on above: TEST RESULTS LIMITSA ntinuclear Ab 9 by Multiplex Anti-DNA (DS) Ab Qn <1 IU/mL 0-9 Negative <5 Equivocal 5 - 9 Positive >9 [employer] Antibodies 0.3 AI 0.0-0.9 Baez Antibodies <0.2 [...] 30% ---------Sm (anti-Baez) SLE 15 - 30% ---------[employer] Mixed Connective Tissue Disease 95%(U1 nRNP, SLE 30 - 50%anti-ribonucleoprotein) Polymyositis and/or Dermatomyositis 20% ---------Scl-70 (antiDNA Scleroderma (diffuse) 20 - 35%topoisomerase) Crest 13% ---------Sherlyn-1 Polymyositis and/or Dermatomyositis 20 - 40% ---------Centromere B Scleroderma - Crest variant 80% TESTING PERFORMED AT [facility]. ORIGINAL REPORT ON FILE IN LAB CONTAINS ADDITIONAL TEST SITE INFORMATION. Dog epithelium IgE Qn (S)Ord ered By: Alejandro Roy on 07-05-2024 Dog Epithelia Allergen <0.10 kU/L Class 0 [facility] Endomysial IgA antibody assa yOrdered By: Alejandro Friend on 07-05-2024 Endomysial IgA Antibody Negative Negative W [facility] Erythrocyte Sed Rateon 07-05 SED RATE 3 mm/hr Normal 0-30 [facility] Comment on above: Performed By: #### L 500.4050, L3300.1800, L3300.1200, L3410.2400, L101.9900, L501.2450, L501.6710, L5500.0550, L504.2610, L3200.1100, L501.2400, L5500.0300 ####[facility] [id number] [place], [place], [phone] Erythrocyte sedimentation ra teOrdered By: Alejandro Roy on 07-05-2024 ESR (Bld) [Velocity] 3 mm/h 0-30 [facility] Estimated glomerular filtrat ion rate (GFR) AmericanOrdered By: Alejandro Roy on 07-05-2024 Estimated GFR (MDRD) Amer 108 mL/min >60 [facility] Comment on above: GFR Calc house dust mite IgE Qn (S)Ordered By: Alejandro Roy on 07-05-2024 Dermatophagoides pteronyss Allergen <0.10 kU/L Class 0 [facility] Gastrin [Mass/Vol]Ordered By : Alejandro Roy on 07-05-2024 Gastrin 46 pg/mL 0-115 [facility] Comment on above: Siemens Immulite 200 0 Immunochemiluminometric assay (ICMA)Values obtained with different assay methods or kits cannotbe used interchangeably. Results cannot be interpreted asabsolute evidence of the presence or absence of malignantdisease.Performed at: [employer] [id number] Director: Cristhian Nath PhD, Phone: [phone] at: [employer] [place] [id number] Director: Talia Avendano MD, Phone: [phone] Gastrin, serumOrdered By: Ra lesvia Roy on 07-05-2024 Gastrin [Mass/Vol] 46 pg/mL 0-115 [facility] Comment on above: Siemens Immulite 200 0 Immunochemiluminometric assay (ICMA)Values obtained with different assay methods or kits cannotbe used interchangeably. Results cannot be interpreted asabsolute evidence of the presence or absence of malignantdisease.Performed at: [facility] [address] [id number] Director: Cristhian Nath PhD, Phone: [phone] at: [employer] [id number] Director: Talia Avendano MD, Phone: [phone] Gastroenterology Visit Repor ton 07-05-2024 Gastroenterology Visit Report [facility] [address] [place] [address] OFFICE VISIT Date of Service: 07/05/24 MR#: [id number] Acct: [id number] Name: OLGA STAFFORD Rep #: [id number] : 1950 Provider: Alejandro Roy DO Age/Sex: 74/F Location: [facility] Status: Signed Intake Vital Signs 01/30/24 06:11 Height 5 ft 2 in Intake Visit Reasons: vomiting after protein Allergies Penicillins Allergy (Verified 01/30/24 06:21) Hives Medications ???Medication ???Instructions ???Recorded ???Confirmed ???Type rxgzyztk-uqd-aepr-FA-Ca carb-vit K 1 tab PO DAILY 03/25/19 [...] (Updated 07/05/24 @ 10:[address] Allen FriendDO) Knee pain Surgical History History of [...] he underwent imaging by her PCP at [facility] that showed a large amount of stool and delayed gastric emptying on a gastric emptying study. From 2013 and 2021 she had random bouts of vomiting probably eating types of foods such as, chickpeas, fish, pepitas, black beans, pecans and walnuts. Her treatment up until 2021 was food avoidance. In July 2021 she had saw an pneumatic tester mechanic at previous clinic and was diagnosed with [...] food substa (more content not included)... Normal [facility] Glomerular filtration rate ( GFR) estimationOrdered By: Alejandro Roy on 07-05-2024 Estimated GFR (MDRD) Non-Af Amer 89 mL/min >60 [facility] Comment on above: Non- GFR Calc GFR/1.73 sq M.predicted among non-blacks MDRD (S/P/Bld) [Vol rate/Area] 89 mL/min/{1.73_m2} >60 [facility] Comment on above: Non- GFR Calc Glucose measurementOrdered B y: Alejandro Roy on 07-05-2024 Glucose [Mass/Vol] 99 mg/dL 74-106 [facility] IgA [Mass/Vol]Ordered By: Ra lesvia Roy on 07-05-2024 Immunoglobulin A 185 mg/dL 64-422 [facility] IgEOrdered By: Alejandro price on 07-05-2024 IgE 29 IU/mL 6-495 [facility] Immunoglobulin E 29 IU/mL 6-495 [facility] IgG [Mass/Vol]Ordered By: Ra lesvia Roy on 07-05-2024 Immunoglobulin G 1644 mg/dL High 586-1602 [facility] Immunoglobulin M measurement Ordered By: Alejandro Roy on 07-05-2024 Immunoglobulin M 111 mg/dL 26-217 [facility] Sherlyn-1 antibody assayOrdered B y: Alejandro Roy on 07-05-2024 SHERLYN-1 Antibody TNP [facility] Comment on above: Test not performed Kentucky blue grass IgE Qn ( S)Ordered By: Alejandro Roy on 07-05-2024 Kentucky Blue (October) Grass IgE Ab <0.10 kU/L Class 0 [facility] LDHon 07-05-2024 LDH 213 U/L Normal 84-246 [facility] Comment on above: Order Comment: 1 Performed By: #### L 500.4050, L3300.1800, L3300.1200, L3410.2400, L101.9900, L501.2450, L501.6710, L5500.0550, L504.2610, L3200.1100, L501.2400, L5500.0300 ####[facility] [address] [place], [address] Laboratory - Chemistry and C hemistry - challengeOrdered By: Alejandro Roy on 07-05-2024 AST [Catalytic activity/Vol] 41 U/L High 15-37 [facility] Laboratory - Miscellaneous t estsOrdered By: Alejandro Roy on 07-05-2024 Service comment (Unsp spec) [Interp] Comment . [facility] Comment on above: Levels of Specific I [...] 07-05-2024 LDH [Catalytic activity/Vol] 213 U/L 84-246 [facility] Lipaseon 07-05-2024 Lipase [Catalytic activity/Vol] 51 U/L Normal 13-75 [facility] Comment on above: Result Comment: David yo note: LIPASE revised reference range effective 22. New Lipase methodology. Expected to produce lower values than the previous assay method. NEW Reference Range: 13 - 75 U/L Performed By: #### L 500.4050, L3300.1800, L3300.1200, L3410.2400, L101.9900, L501.2450, L501.6710, L5500.0550, L504.2610, L3200.1100, L501.2400, L5500.0300 ####[facility] [id number] [place], [address] Lipase measurementOrdered By : Alejandro Roy on 07-05-2024 Lipase [Catalytic activity/Vol] 51 U/L 13-75 [facility] Comment on above: Please note:LIPASE r evised reference range effective 22. New Lipase methodology. Expected to produce lower values than the previous assay method. NEW Reference Range: 13 - 75 U/L Mouse urine IgEOrdered By: Mathieu Roy on 07-05-2024 Mouse Urine Allergen IgE Antibody <0.10 kU/L Class 0 [facility] Comment on above: Performed at: [address] [id number] Director: Talia Avendano MD, Phone: [phone] Neutrophil cytoplasmic Ab.cl assic Qn (S)Ordered By: Alejandro Roy on 07-05-2024 Cytoplasmic ANCA (c-ANCA) Antibody <1:20 titer Neg:<1:20 [facility] Neutrophil cytoplasmic Ab.pe rinuclear IF (S) [Titer]Ordered By: Alejandro Roy on 07-05-2024 Perinuclear ANCA (p-ANCA) Antibody <1:20 titer Neg:<1:20 [facility] Comment on above: The presence of posi [...] only by EIA. Ref. AM J Clin Akstat3424;111:507-513. Peanut IgE Qn (S)Ordered By: Alejandro Roy on 07-05-2024 Peanut Allergen (RAST) <0.10 kU/L Class 0 [facility] Pork IgE Qn (S)Ordered By: Mathieu Roy on 07-05-2024 Pork Allergen (RAST) <0.10 kU/L Class 0 [facility] Potassium measurementOrdered By: Alejandro Roy on 07-05-2024 Potassium [Moles/Vol] 3.6 mmol/L 3.5-5.1 [facility] ARBOR PRESS OPERATOR abOrdered By: Alejandro Valles iend on 07-05-2024 ARBOR PRESS OPERATOR Antibody [facility] Comment on above: Test not performed SCL-70 extractable nuclear A b Qn (S)Ordered By: Alejandro Roy on 07-05-2024 Scl-70 (Scleroderma) Antibody [facility] Comment on above: Test not performed SS-A IgG antibody assayOrder ed By: Alejandro Roy on 07-05-2024 SS-A/Ro IgG Antibody [facility] Comment on above: Test not performed SS-B IgG antibody assayOrder ed By: Alejandro Roy on 07-05-2024 SS-B/La IgG Antibody [facility] Comment on above: Test not performed [place] IgE Qn (S)Ordered By: Alejandro Roy on 07-05-2024 [place] Allergen IgE Antibody <0.10 kU/L Class 0 [facility] Serum Bermuda grass IgE anti body assay (units/volume)Ordered By: Alejandro Roy on 07-05-2024 Bermuda grass IgE Qn (S) <0.10 kU/L Class 0 [facility] Serum DNA double strand anti body assay (units/volume)Ordered By: Alejandro Roy on 07-05-2024 DNA double strand Ab Qn (S) See comment [facility] Comment on above: TEST RESULTS LIMITSA ntinuclear Ab 9 by Multiplex Anti-DNA (DS) Ab Qn <1 IU/mL 0-9 Negative <5 Equivocal 5 - 9 Positive >9 ARBOR PRESS OPERATOR Antibodies 0.3 AI 0.0-0.9 Baez Antibodies <0.2 [...] 30% ---------Sm (anti-Baez) SLE 15 - 30% ---------ARBOR PRESS OPERATOR Mixed Connective Tissue Disease 95%(U1 nRNP, SLE 30 - 50%anti-ribonucleoprotein) Polymyositis and/or Dermatomyositis 20% ---------Scl-70 (antiDNA Scleroderma (diffuse) 20 - 35%topoisomerase) Crest 13% ---------Sherlyn-1 Polymyositis and/or Dermatomyositis 20 - 40% ---------Centromere B Scleroderma - Crest variant 80% TESTING PERFORMED AT [facility]. ORIGINAL REPORT ON FILE IN LAB CONTAINS ADDITIONAL TEST SITE INFORMATION. Serum Dermatophagoides farin ae specific IgE antibody assayOrdered By: Alejandro Roy on 07-05-2024 Dermatophagoides farinae Allergen <0.10 kU/L Class 0 [facility] Serum Congolese plantain speci fic IgE antibody assayOrdered By: Alejandro Roy on 07-05-2024 Congolese Plantain Allergen (RAST) <0.10 kU/L Class 0 [facility] Serum house dust mi te IgE antibody assay (units/volume)Ordered By: Alejandro Roy on 07-05-2024 house dust mite IgE Qn (S) <0.10 kU/L Class 0 [facility] Serum Kentucky blue grass Ig E antibody assay (units/volume)Ordered By: Alejandro Roy on 07-05-2024 [place] blue grass IgE Qn (S) <0.10 kU/L Class 0 [facility] Serum Scl-70 antibody assay (units/volume)Ordered By: Alejandro Roy on 07-05-2024 SCL-70 extractable nuclear Ab Qn (S) TNP [facility] Comment on above: Test not performed Serum anion gap measurementO rdered By: Alejandro Roy on 07-05-2024 Anion gap [Moles/Vol] 5 mmol/L 5-15 [facility] Serum beef IgE antibody assa y (units/volume)Ordered By: Alejandro Roy on 07-05-2024 Beef IgE Qn (S) <0.10 kU/L Class 0 [facility] Serum cat dander IgE antibod y assay (units/volume)Ordered By: Alejandro Roy on 07-05-2024 Cat dander IgE Qn (S) <0.10 kU/L Class 0 [facility] Serum classic neutrophil cyt oplasmic antibody assay (units/volume)Ordered By: Alejandro Roy on 07-05-2024 Neutrophil cytoplasmic Ab.classic Qn (S) <1:20 titer Neg:<1:20 [facility] Serum codfish IgE antibody a ssay (units/volume)Ordered By: Alejandro Roy on 07-05-2024 Codfish IgE Qn (S) <0.10 kU/L Class 0 [facility] Serum common/short ragweed s pecific IgE antibody assayOrdered By: Alejandro Roy on 07-05-2024 Common Ragweed (Short) Allergen <0.10 kU/L Class 0 [facility] Serum corn IgE antibody assa y (units/volume)Ordered By: Alejandro Roy on 07-05-2024 [place] IgE Qn (S) <0.10 kU/L Class 0 [facility] Serum cow milk IgE antibody assay (units/volume)Ordered By: Alejandro Roy on 07-05-2024 Cow milk IgE Qn (S) <0.10 kU/L Class [address] [facility] Serum dog epithelium IgE ant ibody assay (units/volume)Ordered By: Alejandro Roy on 07-05-2024 Dog epithelium IgE Qn (S) <0.10 kU/L Class 0 [facility] Serum globulin measurementOr dered By: Alejandro Roy on 07-05-2024 Globulin (S) [Mass/Vol] 4.0 g/dL 2.2-4.2 [facility] Serum mussel specific IgE an tibody assayOrdered By: Alejandro Roy on 07-05-2024 Mussel Allergen IgE Antibody <0.10 kU/L Class 0 [facility] Serum or plasma IgA measurem ent (mass/volume)Ordered By: Alejandro Roy on 07-05-2024 IgA [Mass/Vol] 185 mg/dL 64-422 [facility] Serum or plasma IgG measurem ent (mass/volume)Ordered By: Alejandro Roy on 07-05-2024 IgG [Mass/Vol] 1644 mg/dL High 586-1602 [facility] Serum or plasma alanine hoff otransferase (ALT) measurementOrdered By: Alejandro Roy on 07-05-2024 ALT [Catalytic activity/Vol] 43 U/L 13-56 [facility] Serum or plasma albumin benito urement (mass/volume)Ordered By: Alejandro Roy on 07-05-2024 Albumin [Mass/Vol] 4.0 g/dL 3.2-5.0 [facility] Serum or plasma alkaline ruiz sphatase measurementOrdered By: Alejandro Roy on 07-05-2024 ALP [Catalytic activity/Vol] 69 U/L 45-117 [facility] Serum or plasma amylase benito urement (enzymatic activity/volume)Ordered By: Alejandro Roy on 07-05-2024 Amylase [Catalytic activity/Vol] 67 U/L 25-115 [facility] Serum or plasma calcium benito urement (mass/volume)Ordered By: Alejandro Roy on 07-05-2024 Calcium [Mass/Vol] 9.1 mg/dL 8.5-10.1 [facility] Serum or plasma creatinine m easurement (mass/volume)Ordered By: Alejandro Roy on 07-05-2024 Creatinine [Mass/Vol] 0.68 mg/dL 0.55-1.02 [facility] Comment on above: The validity of the calculated GFR & GFRAA in patients over 70 years has not been determined. Clinical correlation is essential. Serum or plasma urea nitroge n measurement (mass/volume)Ordered By: Alejandro Roy on 07-05-2024 Urea nitrogen [Mass/Vol] 21 mg/dL High 7-18 [facility] Serum peanut IgE antibody as say (units/volume)Ordered By: Alejandro Roy on 07-05-2024 Peanut IgE Qn (S) <0.10 kU/L Class 0 [facility] Serum perinuclear neutrophil cytoplasmic antibody titer by immunofluorescenceOrdered By: Alejandro Roy on 07-05-2024 Neutrophil cytoplasmic Ab.perinuclear IF (S) [Titer] <1:20 titer Neg:<1:20 [facility] Comment on above: The presence of posi [...] only by EIA. Ref. AM J Clin Xzzysy9050;111:507-513. Serum pork IgE antibody assa y (units/volume)Ordered By: Alejandro Roy on 07-05-2024 Pork IgE Qn (S) <0.10 kU/L Class 0 [facility] Serum salmon IgE antibody as say (units/volume)Ordered By: Alejandro Roy on 07-05-2024 [place] IgE Qn (S) <0.10 kU/L Class 0 [facility] Serum shrimp specific IgE an tibody assayOrdered By: Alejandro Roy on 07-05-2024 Shrimp Allergen <0.10 kU/L Class 0 [facility] Serum soybean IgE antibody a ssay (units/volume)Ordered By: Alejandro Roy on 07-05-2024 Soybean IgE Qn (S) <0.10 kU/L Class 0 [facility] Serum tissue transglutaminas e (tTG) IgA antibody assay (units/volume)Ordered By: Alejandro Roy on 07-05-2024 tTG IgA Qn (S) <2 U/mL 0-3 [facility] Comment on above: Negative 0 - 3 Weak Positive 4 - 10 Positive >10 Tissue Transglutaminase (tTG) has been identified as the endomysial antigen. Studies have demonstr- ated that endomysial IgA antibodies have over 99% specificity for gluten sensitive enteropathy. Serum tuna IgE antibody assa y (units/volume)Ordered By: Alejandro Roy on 07-05-2024 Tuna IgE Qn (S) <0.10 kU/L Class 0 [facility] Serum wheat IgE antibody ass ay (units/volume)Ordered By: Alejandro Roy on 07-05-2024 Wheat IgE Qn (S) <0.10 kU/L Class 0 [facility] Serum white elm IgE antibody assay (units/volume)Ordered By: Alejandro Roy on 07-05-2024 White Elm IgE Qn (S) <0.10 kU/L Class 0 [facility] Serum white oak IgE antibody assay (units/volume)Ordered By: Alejandro Roy on 07-05-2024 Lopez IgE Qn (S) <0.10 kU/L Class 0 [facility] Serum whole egg IgE antibody assay (units/volume)Ordered By: Alejandro Roy on 07-05-2024 Whole Egg IgE Qn (S) <0.10 kU/L Class 0 [facility] Service comment (Unsp spec) [Interp]Ordered By: Alejandro Roy on 07-05-2024 RAST Comment Comment . [facility] Comment on above: Levels of Specific I gE Class Description of Class ----- < 0.10 0 Negative 0.10 - 0.31 0/I Equivocal/Low 0.32 - 0.55 I Low 0.56 - 1.40 II Moderate 1.41 - 3.90 III High 3.91 - 19.00 IV Very High 19.01 - 100.00 V Very High >100.00 Very High Baez antibody assayOrdered By: Alejandro Roy on 07-05-2024 SM Antibody TNP [facility] Comment on above: Test not performed Sodium levelOrdered By: Avril Cárdenas on 07-05-2024 Sodium [Moles/Vol] 139 mmol/L 136-145 [facility] Soybean IgE Qn (S)Ordered By : Alejandro Roy on 07-05-2024 Soybean Allergen (RAST) <0.10 kU/L Class 0 [facility] Total proteinOrdered By: Wilian Roy on 07-05-2024 Protein [Mass/Vol] 8.0 g/dL 6.4-8.2 [facility] Tuna IgE Qn (S)Ordered By: Mathieu Roy on 07-05-2024 Tuna Allergen (RAST) <0.10 kU/L Class 0 [facility] Wheat IgE Qn (S)Ordered By: Alejandro Roy on 07-05-2024 Wheat Allergen (RAST) <0.10 kU/L Class 0 [facility] White Elm IgE Qn (S)Ordered By: Alejandro Roy on 07-05-2024 [place] Allergen <0.10 kU/L Class 0 [facility] Lopez IgE Qn (S)Ordered By: Alejandro Roy on 07-05-2024 Lopez Tree Allergen <0.10 kU/L Class 0 [facility] Whole Egg IgE Qn (S)Ordered By: Alejandro Roy on 07-05-2024 Egg Whole Allergen <0.10 kU/L Class 0 [facility] tTG IgA Qn (S)Ordered By: Ra lesvia Roy on 07-05-2024 Tissue Transglutaminase IgA Ab <2 U/mL 0-3 [facility] Comment on above: Negative 0 - 3 Weak Positive 4 - 10 Positive >10 Tissue Transglutaminase (tTG) has been identified as the endomysial antigen. Studies have demonstr- ated that endomysial IgA antibodies have over 99% specificity for gluten sensitive enteropathy. Absolute neutrophil countOrd ered By: Radha Rodas on 05-18-2024 Neutrophils (Bld) [#/Vol] 1.5 10*3/uL Low 2.0-7.7 [facility] Albumin to globulin ratioOrd ered By: Radha Rodas on 05-18-2024 Albumin/Globulin [Mass ratio] 0.9 {ratio} 0.9-2.4 [facility] Basophil percentageOrdered B y: Radha Rodas on 05-18-2024 Basophils/100 WBC (Bld) 1.0 % 0-1 [facility] Bilirubin, totalOrdered By: Radha Rodas on 05-18-2024 Bilirubin [Mass/Vol] 0.50 mg/dL 0.20-1.00 [facility] Comment on above: For patients on eltr ombopag therapy, use of [facility] TBIL is not recommended. Blood urea nitrogen (BUN)/cr eatinine ratioOrdered By: Radha Rodas on 05-18-2024 Urea nitrogen/Creatinine [Mass ratio] 33.5 mg/mg High 10-20 [facility] CBC W/Diff, Automatedon 05-02 Absolute Lymph 2.14 X10 3/uL Normal 0.83-4.51 [facility] Comment on above: Performed By: #### L 100.0100, L501.78810, L500.4050, L501.9520, L500.4100, L506.0400 #### [facility] [address] [place], [place], [id number] Absolute Neut 1.5 X10 3/uL Low 2.0-7.7 [facility] Comment on above: Performed By: #### L 100.0100, L501.73412, L500.4050, L501.9520, L500.4100, L506.0400 #### [facility] [address] [place], [address] Basophils/100 WBC (Bld) 1.0 % Normal 0-1 [facility] Comment on above: Performed By: #### L 100.0100, L501.04211, L500.4050, L501.9520, L500.4100, L506.0400 #### [facility] [address] [place], [address] Eosinophils/100 WBC (Bld) 1.4 % Normal 0-5 [facility] Comment on above: Performed By: #### L 100.0100, L501.68246, L500.4050, L501.9520, L500.4100, L506.0400 #### [facility] [address] [place], [address] Erythrocyte distribution width (RBC) [Ratio] 13.7 % Normal 11.6-14.6 [facility] Comment on above: Performed By: #### L 100.0100, L501.54320, L500.4050, L501.9520, L500.4100, L506.0400 #### [facility] [address] [place], [address] Hematocrit (Bld) [Volume fraction] 39.0 % Normal 37-47 [facility] Comment on above: Performed By: #### L 100.0100, L501.40253, L500.4050, L501.9520, L500.4100, L506.0400 #### [facility] [address] [place], [address] Hemoglobin (Bld) [Mass/Vol] 13.1 g/dL Normal 12.0-15.0 [facility] Comment on above: Performed By: #### L 100.0100, L501.55233, L500.4050, L501.9520, L500.4100, L506.0400 #### [facility] [address] [place], [address] IG% 0.200 Normal 0.0-0.9 [facility] Comment on above: Result Comment: IG% - Immature Granulocytes (promyelocytes, myelocytes and metamyelocytes) > 1% indicates that a LEFT SHIFT is Present. Performed By: #### L 100.0100, L501.76372, L500.4050, L501.9520, L500.4100, L506.0400 #### [facility] [address] [place], [address] Lymphocytes/100 WBC (Bld) 51.1 % High 19-41 [facility] Comment on above: Performed By: #### L 100.0100, L501.90890, L500.4050, L501.9520, L500.4100, L506.0400 #### [facility] [address] [place], [address] MCH (RBC) [Entitic mass] 28.6 pg Normal 27.0-32.0 [facility] Comment on above: Performed By: #### L 100.0100, L501.10269, L500.4050, L501.9520, L500.4100, L506.0400 #### [facility] [address] [place], [address] MCHC (RBC) [Mass/Vol] 33.6 g/dL Normal 32-36 [facility] Comment on above: Performed By: #### L 100.0100, L501.19909, L500.4050, L501.9520, L500.4100, L506.0400 #### [facility] [address] [place], [address] MCV (RBC) [Entitic vol] 85.2 fL Normal 81-99 [facility] Comment on above: Performed By: #### L 100.0100, L501.31338, L500.4050, L501.9520, L500.4100, L506.0400 #### [facility] [address] [place], [address] Monocytes/100 WBC (Bld) 11.7 % High 0-10 [facility] Comment on above: Performed By: #### L 100.0100, L501.02701, L500.4050, L501.9520, L500.4100, L506.0400 #### [facility] [address] [place], [address] Neutrophils/100 WBC (Bld) 34.6 % Low 47-70 [facility] Comment on above: Performed By: #### L 100.0100, L501.51310, L500.4050, L501.9520, L500.4100, L506.0400 #### [facility] [address] [place], [address] Nucleated RBC (Bld) [#/Vol] 0 10*3/uL Normal 0-5 [facility] Comment on above: Performed By: #### L 100.0100, L501.34588, L500.4050, L501.9520, L500.4100, L506.0400 #### [facility] [address] [place], [address] Platelet mean volume (Bld) [Entitic vol] 8.8 fL Normal 6.2-12.0 [facility] Comment on above: Performed By: #### L 100.0100, L501.54095, L500.4050, L501.9520, L500.4100, L506.0400 #### [facility] [address] [place], [address] Platelets (Bld) [#/Vol] 187 10*3/uL Normal 150-450 [facility] Comment on above: Performed By: #### L 100.0100, L501.80596, L500.4050, L501.9520, L500.4100, L506.0400 #### [facility] [address] [place], [address] RBC (Bld) [#/Vol] 4.58 10*6/uL Normal 4.2-5.4 [facility] Comment on above: Performed By: #### L 100.0100, L501.58398, L500.4050, L501.9520, L500.4100, L506.0400 #### [facility] [address] [place], [address] RDW SD 42.4 fl Normal 35.1-43.9 [facility] Comment on above: Performed By: #### L 100.0100, L501.83556, L500.4050, L501.9520, L500.4100, L506.0400 #### [facility] [address] [place], [address] WBC (Bld) [#/Vol] 4.2 10*3/uL Low 4.4-11.0 [facility] Comment on above: Performed By: #### L 100.0100, L501.15676, L500.4050, L501.9520, L500.4100, L506.0400 #### [facility] [address] [place], [address] Carbon dioxide measurementOr dered By: Radha Rodas on 05-18-2024 CO2 [Moles/Vol] 29.0 mmol/L 21.0-32.0 [facility] Chloride measurementOrdered By: Radha Rodas on 05-18-2024 Chloride [Moles/Vol] 109 mmol/L High 98-107 [facility] Comprehensive Metabolic Prof ilon 05-18-2024 Albumin [Mass/Vol] 3.5 g/dL Normal 3.2-5.0 [facility] Comment on above: Performed By: #### L 100.0100, L501.59122, L500.4050, L501.9520, L500.4100, L506.0400 #### [facility] [address] [place], [address] Albumin/Globulin [Mass ratio] 0.9 {ratio} Normal 0.9-2.4 [facility] Comment on above: Performed By: #### L 100.0100, L501.69337, L500.4050, L501.9520, L500.4100, L506.0400 #### [facility] [address] [place], [address] ALK P 68 U/L Normal 45-117 [facility] Comment on above: Performed By: #### L 100.0100, L501.53334, L500.4050, L501.9520, L500.4100, L506.0400 #### [facility] [address] [place], [address] ALT [Catalytic activity/Vol] 37 U/L Normal 13-56 [facility] Comment on above: Performed By: #### L 100.0100, L501.01955, L500.4050, L501.9520, L500.4100, L506.0400 #### [facility] [address] [place], [address] AST [Catalytic activity/Vol] 37 U/L Normal 15-37 [facility] Comment on above: Performed By: #### L 100.0100, L501.58090, L500.4050, L501.9520, L500.4100, L506.0400 #### [facility] [address] [place], [address] Bilirubin [Mass/Vol] 0.50 mg/dL Normal 0.20-1.00 [facility] Comment on above: Result Comment: For patients on eltrombopag therapy, use of [facility] TBIL is not recommended. Performed By: #### L 100.0100, L501.60533, L500.4050, L501.9520, L500.4100, L506.0400 #### [facility] [address] [place], [address] BUN/CRE 33.5 RATIO High 10-20 [facility] Comment on above: Performed By: #### L 100.0100, L501.66842, L500.4050, L501.9520, L500.4100, L506.0400 #### [facility] [address] [place], [address] CA,Total 8.7 mg/dL Normal 8.5-10.1 [facility] Comment on above: Performed By: #### L 100.0100, L501.69835, L500.4050, L501.9520, L500.4100, L506.0400 #### [facility] [address] [place], [address] Chloride [Moles/Vol] 109 mmol/L High 98-107 [facility] Comment on above: Performed By: #### L 100.0100, L501.90176, L500.4050, L501.9520, L500.4100, L506.0400 #### [facility] [address] [place], [address] CO2 [Moles/Vol] 29.0 mmol/L Normal 21.0-32.0 [facility] Comment on above: Performed By: #### L 100.0100, L501.84180, L500.4050, L501.9520, L500.4100, L506.0400 #### [facility] [address] [place], [address] Creatinine [Mass/Vol] 0.72 mg/dL Normal 0.55-1.02 [facility] Comment on above: Result Comment: The validity of the calculated GFR GFRAA in patients over 70 years has not been determined. Clinical correlation is essential. Performed By: #### L 100.0100, L501.34899, L500.4050, L501.9520, L500.4100, L506.0400 #### [facility] [address] [place], [address] EST GFR - AA 102 mL/min Normal >60 [facility] Comment on above: Result Comment: Afri can Citizen Of [place] GFR Calc Performed By: #### L 100.0100, L501.31199, L500.4050, L501.9520, L500.4100, L506.0400 #### [facility] [address] [place], [address] GAP 2 Low 5-15 [facility] Comment on above: Performed By: #### L 100.0100, L501.13788, L500.4050, L501.9520, L500.4100, L506.0400 #### [facility] [address] [place], [address] GFR/1.73 sq M.predicted among non-blacks MDRD (S/P/Bld) [Vol rate/Area] 84 mL/min/{1.73_m2} Normal >60 [facility] Comment on above: Result Comment: Non- GFR Calc Performed By: #### L 100.0100, L501.75399, L500.4050, L501.9520, L500.4100, L506.0400 #### [facility] [address] [place], [address] Globulin (S) [Mass/Vol] 3.9 g/dL Normal 2.2-4.2 [facility] Comment on above: Performed By: #### L 100.0100, L501.16134, L500.4050, L501.9520, L500.4100, L506.0400 #### [facility] [address] [place], [address] Glucose [Mass/Vol] 99 mg/dL Normal 74-106 [facility] Comment on above: Performed By: #### L 100.0100, L501.38273, L500.4050, L501.9520, L500.4100, L506.0400 #### [facility] [address] [place], [address] Potassium [Moles/Vol] 3.9 mmol/L Normal 3.5-5.1 [facility] Comment on above: Performed By: #### L 100.0100, L501.59382, L500.4050, L501.9520, L500.4100, L506.0400 #### [facility] [address] [place], [address] Sodium [Moles/Vol] 140 mmol/L Normal 136-145 [facility] Comment on above: Performed By: #### L 100.0100, L501.70807, L500.4050, L501.9520, L500.4100, L506.0400 #### [facility] [address] [place], [address] T PROT 7.4 g/dL Normal 6.4-8.2 [facility] Comment on above: Performed By: #### L 100.0100, L501.05973, L500.4050, L501.9520, L500.4100, L506.0400 #### [facility] [address] [place], [address] Urea nitrogen [Mass/Vol] 24 mg/dL High 7-18 [facility] Comment on above: Performed By: #### L 100.0100, L501.31900, L500.4050, L501.9520, L500.4100, L506.0400 #### [facility] [address] [place], [place], [id number] Direct serum free thyroxine (FT4) measurementOrdered By: Radha Rodas on 05-18-2024 Free T4 [Mass/Vol] 0.92 ng/dL 0.76-1.46 [facility] Eosinophil percentageOrdered By: Radha Rodas on 05-18-2024 Eosinophils/100 WBC (Bld) 1.4 % 0-5 [facility] Erythrocyte distribution wid th (RBC) [Ratio]Ordered By: Radha Rodas on 05-18-2024 Erythrocyte distribution width (RBC) [Entitic vol] 42.4 fL 35.1-43.9 [facility] Erythrocyte distribution wid th ratioOrdered By: Radha Rodas on 05-18-2024 Erythrocyte distribution width (RBC) [Ratio] 13.7 % 11.6-14.6 [facility] Estimated glomerular filtrat ion rate (GFR) AmericanOrdered By: Radha Rodas on 05-18-2024 Estimated GFR (MDRD) Amer 102 mL/min >60 [facility] Comment on above: GFR Calc Free T3on 05-18-2024 Free T3 [Mass/Vol] 2.8 pg/mL Normal 2.18-3.98 [facility] Comment on above: Performed By: #### L 100.0100, L501.57388, L500.4050, L501.9520, L500.4100, L506.0400 #### [facility] [address] [place], [place], [id number] Free I2Cpyvlcf By: Radha Benavides s on 05-18-2024 Free Triiodothyronine (T3) pg/dL 2.8 pg/mL 2.18-3.98 [facility] Glomerular filtration rate ( GFR) estimationOrdered By: Radha Rodas on 05-18-2024 Estimated GFR (MDRD) Non-Af Amer 84 mL/min >60 [facility] Comment on above: Non- GFR Calc Glucose measurementOrdered B y: Radha Rodas on 05-18-2024 Glucose [Mass/Vol] 99 mg/dL 74-106 [facility] Hematocrit Auto (Bld) [Volum e fraction]Ordered By: Radha Rodas on 05-18-2024 Hematocrit (Bld) [Volume fraction] 39.0 % 37-47 [facility] Hemoglobin measurementOrdere d By: Radha Rodas on 05-18-2024 Hemoglobin (Bld) [Mass/Vol] 13.1 g/dL 12.0-15.0 [facility] High density lipoprotein (HD L) measurementOrdered By: Radha Rodas on 05-18-2024 Cholesterol in HDL [Mass/Vol] 57 mg/dL >40 [facility] Comment on above: The drugs N-Acetylcy steine and Metamizole may falsely depress this assay. Reference Range HDL <40 mg/dL Low HDL Cholesterol HDL >or= 60 mg/dL High HDL Cholesterol Immature granulocytes/100 WB C Auto (Bld)Ordered By: Radha Rodas on 05-18-2024 Immature granulocytes/100 WBC (Bld) 0.200 % 0.0-0.9 [facility] Comment on above: IG% - Immature Granu locytes (promyelocytes, myelocytes and metamyelocytes) > 1% indicates that a LEFT SHIFT is Present. Laboratory - Chemistry and C hemistry - challengeOrdered By: Radha Rodas on 05-18-2024 AST [Catalytic activity/Vol] 37 U/L 15-37 [facility] Lipid Profileon 05-18-2024 Cholesterol [Mass/Vol] 222 mg/dL High 200 [facility] Comment on above: Result Comment: <200 mg/dL Desirable 200-240 mg/dL Borderline >240 mg/dL High Risk Performed By: #### L 100.0100, L501.57963, L500.4050, L501.9520, L500.4100, L506.0400 #### [facility] [address] [place], [address] Cholesterol in HDL [Mass/Vol] 57 mg/dL Normal [facility] Comment on above: Result Comment: The drugs N-Acetylcysteine and Metamizole may falsely depress this assay. Reference Range HDL <40 mg/dL Low HDL Cholesterol HDL >or= 60 mg/dL High HDL Cholesterol Performed By: #### L 100.0100, L501.01260, L500.4050, L501.9520, L500.4100, L506.0400 #### [facility] [address] [place], [address] Cholesterol in LDL [Mass/Vol] 135 mg/dL High 0-130 [facility] Comment on above: Performed By: #### L 100.0100, L501.90920, L500.4050, L501.9520, L500.4100, L506.0400 #### [facility] [address] [place], [address] Cholesterol in VLDL [Mass/Vol] 30 mg/dL Normal 5-40 [facility] Comment on above: Performed By: #### L 100.0100, L501.37042, L500.4050, L501.9520, L500.4100, L506.0400 #### [facility] [address] [place], [address] Triglyceride [Mass/Vol] 150 mg/dL Normal [facility] Comment on above: Result Comment: The drugs N-Acetylcysteine and Metamizole may falsely depress this assay. Serum Triglycerides Reference Interval Normal <150 mg/dL Borderline high 150 - 199 mg/dL High 200 - 499 mg/dL Very High > or = 500 mg/dL Performed By: #### L 100.0100, L501.98041, L500.4050, L501.9520, L500.4100, L506.0400 #### [facility] [address] [place], [address] Low density lipoprotein (LDL ) cholesterol measurementOrdered By: Radha Rodas on 05-18-2024 Cholesterol in LDL [Mass/Vol] 135 mg/dL High 0-130 [facility] Lymphocytes Auto (Unsp spec) [#/Vol]Ordered By: Radha Rodas on 05-18-2024 Lymphocytes (Bld) [#/Vol] 2.14 10*3/uL 0.83-4.5 1 [facility] Lymphocytes/100 WBC Auto (Un sp spec)Ordered By: Radhakaz Rodas on 05-18-2024 Lymphocytes/100 WBC (Bld) 51.1 % High 19-41 [facility] MCV (mean corpuscular volume ) determinationOrdered By: Radha Rodas on 05-18-2024 MCV (RBC) [Entitic vol] 85.2 fL 81-99 [facility] Mean corpuscular hemoglobin (MCH) determinationOrdered By: Radha Rodas on 05-18-2024 MCH (RBC) [Entitic mass] 28.6 pg 27.0-32.0 [facility] Mean corpuscular hemoglobin concentration (MCHC) determinationOrdered By: Radha Rodas on 05-18-2024 MCHC (RBC) [Mass/Vol] 33.6 g/dL 32-36 [facility] Mean platelet volume determi nationOrdered By: Radha Rodas on 05-18-2024 Platelet mean volume (Bld) [Entitic vol] 8.8 fL 6.2-12.0 [facility] Monocyte percentageOrdered B y: Radha Rodas on 05-18-2024 Monocytes/100 WBC (Bld) 11.7 % High 0-10 [facility] Neutrophil percentageOrdered By: Radha Rodas on 05-18-2024 Neutrophils/100 WBC (Bld) 34.6 % Low 47-70 [facility] Nucleated red blood cell per centageOrdered By: Radha Rodas on 05-18-2024 Nucleated RBC/100 WBC (Bld) [Ratio] 0 % 0-5 [facility] Platelet countOrdered By: Arelis Rodsa on 05-18-2024 Platelets (Bld) [#/Vol] 187 10*3/uL 150-450 [facility] Potassium measurementOrdered By: Radha Rodas on 05-18-2024 Potassium [Moles/Vol] 3.9 mmol/L 3.5-5.1 [facility] RBC Auto (Bld) [#/Vol]Ordere d By: Radha Rodas on 05-18-2024 RBC (Bld) [#/Vol] 4.58 10*6/uL 4.2-5.4 [facility] Serum anion gap measurementO rdered By: Radha Rodas on 05-18-2024 Anion gap [Moles/Vol] 2 mmol/L Low 5-15 [facility] Serum globulin measurementOr dered By: Radha Rodas on 05-18-2024 Globulin (S) [Mass/Vol] 3.9 g/dL 2.2-4.2 [facility] Serum or plasma alanine hoff otransferase (ALT) measurementOrdered By: Radha Rodas on 05-18-2024 ALT [Catalytic activity/Vol] 37 U/L 13-56 [facility] Serum or plasma albumin benito urement (mass/volume)Ordered By: Radha Rodas on 05-18-2024 Albumin [Mass/Vol] 3.5 g/dL 3.2-5.0 [facility] Serum or plasma alkaline ruiz sphatase measurementOrdered By: Radha Rodas on 05-18-2024 ALP [Catalytic activity/Vol] 68 U/L 45-117 [facility] Serum or plasma calcium benito urement (mass/volume)Ordered By: Radha Rodas on 05-18-2024 Calcium [Mass/Vol] 8.7 mg/dL 8.5-10.1 [facility] Serum or plasma cholesterol measurement (mass/volume)Ordered By: Radha Rodas on 05-18-2024 Cholesterol [Mass/Vol] 222 mg/dL High <200 [facility] Comment on above: <200 mg/dL Desirable 200-240 mg/dL Borderline >240 mg/dL High Risk Serum or plasma creatinine m easurement (mass/volume)Ordered By: Radha Rodas on 05-18-2024 Creatinine [Mass/Vol] 0.72 mg/dL 0.55-1.02 [facility] Comment on above: The validity of the calculated GFR & GFRAA in patients over 70 years has not been determined. Clinical correlation is essential. Serum or plasma urea nitroge n measurement (mass/volume)Ordered By: Radha Rodas on 05-18-2024 Urea nitrogen [Mass/Vol] 24 mg/dL High 7-18 [facility] Sodium levelOrdered By: Radha Rodas on 05-18-2024 Sodium [Moles/Vol] 140 mmol/L 136-145 [facility] T4 Free Directon 05-18-2024 T4 FREE DIRECT 0.92 ng/dL Normal 0.76-1.46 [facility] Comment on above: Performed By: #### L 100.0100, L501.86919, L500.4050, L501.9520, L500.4100, L506.0400 ####[facility] [id number] [place], [place], [id number] TSH QnOrdered By: Radha Rodas on 05-18-2024 Thyroid Stimulating Hormone (TSH) 3.540 uIU/mL 0.358-3.74 0 [facility] Thyroid Stim Hormone (TSH)on 05-18-2024 TSH 3.540 uIU/mL Normal 0.358-3.74 0 [facility] Comment on above: Performed By: #### L 100.0100, L501.68226, L500.4050, L501.9520, L500.4100, L506.0400 ####[facility] [id number] [place], [place], [id number] Total proteinOrdered By: Sun Rodas on 05-18-2024 Protein [Mass/Vol] 7.4 g/dL 6.4-8.2 [facility] Triglycerides measurementOrd ered By: Radha Rodas on 05-18-2024 Triglyceride [Mass/Vol] 150 mg/dL <199 [facility] Comment on above: The drugs N-Acetylcy steine and Metamizole may falsely depress this assay.Serum Triglycerides Reference Interval Normal <150 mg/dL Borderline high 150 - 199 mg/dL High 200 - 499 mg/dL Very High > or = 500 mg/dL Very low density lipoprotein (VLDL) cholesterol measurementOrdered By: Radha Rodas on 05-18-2024 VLDL Cholesterol 30 mg/dL 5-40 [facility] White blood cell (WBC) count Ordered By: Radha Rodas on 05-18-2024 WBC (Bld) [#/Vol] 4.2 10*3/uL Low 4.4-11.0 [facility] Absolute lymphocyte countOrd ered By: Radha Rodas on 05-10-2023 Lymphocytes Auto (Unsp spec) [#/Vol] 2.43 10*3/uL 0.83-4.51 [facility] Basophil percentageOrdered B y: Radha Rodas on 05-10-2023 Basophils/100 WBC (Bld) 0.9 % 0-1 [facility] Bilirubin [Mass/Vol] 0.30 mg/dL 0.20-1.00 [facility] Comment on above: For patients on eltr ombopag therapy, use of [facility] TBIL is not recommended. Chloride [Moles/Vol] 110 mmol/L 98-107 [facility] Cholesterol [Mass/Vol] 210 mg/dL <200 [facility] Comment on above: <200 mg/dL Desirable 200-240 mg/dL Borderline >240 mg/dL High Risk Eosinophils/100 WBC (Bld) 0.9 % 0-5 [facility] Glucose [Mass/Vol] 95 mg/dL 74-106 [facility] Neutrophils (Bld) [#/Vol] 1.5 10*3/uL 2.0-7.7 [facility] Neutrophils/100 WBC (Bld) 33.2 % 47-70 [facility] Potassium [Moles/Vol] 4.0 mmol/L 3.5-5.1 [facility] Protein [Mass/Vol] 7.2 g/dL 6.4-8.2 [facility] Sodium [Moles/Vol] 140 mmol/L 136-145 [facility] Triglyceride [Mass/Vol] 157 mg/dL <199 [facility] Comment on above: The drugs N-Acetylcy steine and Metamizole may falsely depress this assay.Serum Triglycerides Reference Interval Normal <150 mg/dL Borderline high 150 - 199 mg/dL High 200 - 499 mg/dL Very High > or = 500 mg/dL WBC (Bld) [#/Vol] 4.5 10*3/uL 4.4-11.0 [facility] Blood erythrocytes count (nu mber/volume)Ordered By: Radha Rodas on 05-10-2023 RBC (Bld) [#/Vol] 4.39 10*6/uL 4.2-5.4 [facility] Blood hemoglobin measurement (mass/volume)Ordered By: Radha Rodas on 05-10-2023 Hemoglobin (Bld) [Mass/Vol] 12.4 g/dL 12.0-15.0 [facility] Blood lymphocytes/100 leukoc ytesOrdered By: Radha Rodas on 05-10-2023 Lymphocytes/100 WBC (Bld) 54.5 % 19-41 [facility] Blood monocytes/100 leukocyt esOrdered By: Radha Rodas on 05-10-2023 Monocytes/100 WBC (Bld) 10.1 % 0-10 [facility] Blood platelet mean volumeOr dered By: Radha Rodas on 05-10-2023 Platelet mean volume (Bld) [Entitic vol] 9.3 fL 6.2-12.0 [facility] Determination of erythrocyte mean corpuscular volume (MCV)Ordered By: Radha Rodas on 05-10-2023 MCV (RBC) [Entitic vol] 87.5 fL 81-99 [facility] Hematocrit Auto (Bld) [Volum e fraction]Ordered By: Radha Rodas on 05-10-2023 Hematocrit (Bld) [Volume fraction] 38.4 % 37-47 [facility] - Chemistry and C hemistry - challengeOrdered By: Radha Rodas on 05-10-2023 ALP [Catalytic activity/Vol] 69 U/L 45-117 [facility] ALT [Catalytic activity/Vol] 41 U/L 13-56 [facility] CO2 [Moles/Vol] 28.0 mmol/L 21.0-32.0 [facility] Free T4 [Mass/Vol] 0.82 ng/dL 0.76-1.46 [facility] Globulin (S) [Mass/Vol] 3.8 g/dL 2.2-4.2 [facility] Urea nitrogen/Creatinine [Mass ratio] 30.4 mg/mg 10-20 [facility] - Hematology and Cell countsOrdered By: Radha Rodas on 05-10-2023 Erythrocyte distribution width (RBC) [Entitic vol] 43.5 fL 35.1-43.9 [facility] Erythrocyte distribution width (RBC) [Ratio] 13.5 % 11.6-14.6 [facility] Immature granulocytes/100 WBC (Bld) 0.400 % 0.0-0.9 [facility] Comment on above: IG% - Immature Granu locytes (promyelocytes, myelocytes and metamyelocytes) > 1% indicates that a LEFT SHIFT is Present. MCH (RBC) [Entitic mass] 28.2 pg 27.0-32.0 [facility] Nucleated RBC/100 WBC (Bld) [Ratio] 0 % 0-5 [facility] MCHC Auto (RBC) [Mass/Vol]Or dered By: Radha Rodas on 05-10-2023 MCHC (RBC) [Mass/Vol] 32.3 g/dL 32-36 [facility] No Panel InformationOrdered By: Radha Rodas on 05-10-2023 Estimated GFR (MDRD) Amer 96 mL/min >60 [facility] Comment on above: GFR Calc Estimated GFR (MDRD) Non-Af Amer 79 mL/min >60 [facility] Comment on above: Non- GFR Calc Free Triiodothyronine (T3) pg/dL 2.4 pg/mL 2.18-3.98 [facility] Thyroid Stimulating Hormone (TSH) 4.12 uIU/mL 0.358-3.74 [facility] Platelets bldOrdered By: Sun Rodas on 05-10-2023 Platelets (Bld) [#/Vol] 186 10*3/uL 150-450 [facility] Serum or plasma albumin benito urement (mass/volume)Ordered By: Radha Rodas on 05-10-2023 Albumin [Mass/Vol] 3.4 g/dL 3.2-5.0 [facility] Serum or plasma albumin/glob ulin mass ratioOrdered By: Radha Rodas on 05-10-2023 Albumin/Globulin [Mass ratio] 0.9 {ratio} 0.9-2.4 [facility] Serum or plasma calcium benito urement (mass/volume)Ordered By: Radha Rodas on 05-10-2023 Calcium [Mass/Vol] 8.5 mg/dL 8.5-10.1 [facility] Serum or plasma cholesterol in HDL measurement (mass/volume)Ordered By: Radha Rodas on 05-10-2023 Cholesterol in HDL [Mass/Vol] 52 mg/dL >40 [facility] Comment on above: The drugs N-Acetylcy steine and Metamizole may falsely depress this assay. Reference Range HDL <40 mg/dL Low HDL Cholesterol HDL >or= 60 mg/dL High HDL Cholesterol Serum or plasma cholesterol in VLDL measurement (mass/volume)Ordered By: Radha Rodas on 05-10-2023 Cholesterol in VLDL [Mass/Vol] 31 mg/dL 5-40 [facility] Serum or plasma creatinine m easurement (mass/volume)Ordered By: Radha Rodas on 05-10-2023 Creatinine [Mass/Vol] 0.76 mg/dL 0.55-1.02 [facility] Comment on above: The validity of the calculated GFR & GFRAA in patients over 70 years has not been determined. Clinical correlation is essential. Serum or plasma low density lipoprotein (LDL) cholesterol measurement (mass/volume)Ordered By: Radha Rodas on 05-10-2023 Cholesterol in LDL [Mass/Vol] 127 mg/dL 0-130 [facility] Serum or plasma urea nitroge n measurement (mass/volume)Ordered By: Radha Rodas on 05-10-2023 Urea nitrogen [Mass/Vol] 23 mg/dL 7-18 [facility] Thin prep Papanicolaou smear with manual screeningOrdered By: Radha Rodas on 05-10-2023 Thin prep Papanicolaou smear with manual screening 32 U/L 15-37 [facility] Thin prep Papanicolaou smear with manual screening 2 5-15 [facility] Absolute lymphocyte counton 05-02-2022 Lymphocytes Auto (Unsp spec) [#/Vol] 2.09 10*3/uL 0.83-4.51 [facility] Work Phone: Basophil percentageon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 mm[Hg] Dr. Alejandro Roy DO Work Phone: [facility] 10-21-2024 14:01-0400 Heart rate 57 /min Dr. Alejandro Roy DO Work Phone: [facility] 10-21-2024 14:01-0400 Respiratory rate 18 /min Dr. Alejandro Roy DO Work Phone: [facility] 10-21-2024 14:01-0400 SaO2% (BldA) [Mass fraction] 99 % Dr. Alejandro Roy DO Work Phone: [facility] 10-21-2024 14:01-0400 Systolic blood pressure 117 mm[Hg] Dr. Alejandro Roy DO Work Phone: [facility] 08-26-2024 15:08-0400 Body height 157.[address] Radha Rodas DO Work Phone: [facility] 08-26-2024 15:06-0400 Body mass index (BMI) [Ratio] 24.2 kg/m2 Dr. Radha Rodas DO Work Phone: [facility] 08-26-2024 15:06-0400 Body temperature 98.4 [degF] Dr. Radha Rodas DO Work Phone: [facility] 2025 15:06-0400 Body weight 60.[address] Radha Rodas DO Work Phone: [facility] 08-26-2024 15:06-0400 Diastolic blood pressure 76 mm[Hg] Dr. Radha Rodas DO Work Phone: [facility] 08-26-2024 15:06-0400 Heart rate 71 /min Dr. Radha Rodas DO Work Phone: [facility] 08-26-2024 15:06-0400 Respiratory rate 18 /min Dr. Radha Rodas DO Work Phone: [facility] 08-26-2024 15:06-0400 SaO2% (BldA) [Mass fraction] 98 % Dr. Radha Rodas DO Work Phone: [facility] 08-26-2024 15:06-0400 Systolic blood pressure 119 mm[Hg] Dr. Radha Rodas DO Work Phone: [facility] 02-15-2023 09:19-0400 Body height 157.[address] Radha Rodas Work Phone: [facility] 02-15-2023 09:19-0400 Body mass index (BMI) [Ratio] 24.3 kg/m2 Dr. Radha Rodas Work Phone: [facility] 02-15-2023 09:19-0400 Body temperature 98.7 [degF] Dr. Radha Rodas Work Phone: [facility] 02-15-2023 09:19-0400 Body weight 60.[address] Radha Rodas Work Phone: [facility] 02-15-2023 09:19-0400 Diastolic blood pressure 74 mm[Hg] Dr. Radha Rodas Work Phone: [facility] 02-15-2023 09:19-0400 Systolic blood pressure 132 mm[Hg] Dr. Radha Rodas Work Phone: [facility] 03-02-2022 08:19-0400 Body temperature 98.1 [degF] Dr. Radha Rodas Work Phone: [facility] Work Phone: 03-02-2022 08:19-0400 Diastolic blood pressure 66 mm[Hg] Dr. Radha Rodas Work Phone: [facility] Work Phone: 03-02-2022 08:19-0400 Heart rate 51 /min Dr. Radha Rodas Work Phone: [facility] Work Phone: 03-02-2022 08:19-0400 Respiratory rate 14 /min Dr. Radha Rodas Work Phone: [facility] Work Phone: 03-02-2022 08:19-0400 SaO2% (BldA) [Mass fraction] 99 % Dr. Radha Rodas Work Phone: [facility] Work Phone: 03-02-2022 08:19-0400 Systolic blood pressure 118 mm[Hg] Dr. Radha Rodas Work Phone: [facility] Work Phone: Encounters Encounter Date Encounter Type Care Provider Facility Start: 04-06-2025 ambulatory [facility] Facility:[facility] Start: 03-31-2025 ambulatory [facility] Facility:[facility] Start: 02-10-2025 End: 02-10-[address] Meet Santos MD -[facility] Work Phone: Start: 02-10-2025 End: 02-10-[address] Radha Rodas DO Work Phone: [facility] Start: 02-03-[facility] Start: 02-03-[address] Meet Santos MD -[facility] Start: 01-27-2025 End: 01-27-2025 Patient encounter procedure Alejandro Roy DO -[facility] Work Phone: Start: 01-27-2025 End: 01-27-[address] Meet Santos MD Work Phone: -[facility] Start: 12-01-2024 End: 12-01-[address] Alejandro Roy DO Work Phone: [facility] Start: 12-01-2024 End: 12-01-2024 Patient encounter procedure Alejandro Roy DO -[facility] Work Phone: Start: 12-01-2024 End: 12-01-2024 ambulatory Radha Rodas Facility:[facility] Start: 11-17-[facility] [place] Start: 11-17-2024 Non-patient / Non-visit Alejandro Roy DO -[facility] Start: 11-17-2024 End: 11-17-2024 Admission to same day surgery center Alejandro Roy DO -Endoscopy Work Phone: Start: 11-17-2024 End: 11-17-[address] Alejadnro Roy DO Work Phone: [facility] Work Phone: Start: 10-21-2024 End: 10-21-[address] Meet Santos MD -[facility] Work Phone: Start: 10-21-2024 End: 10-21-2024 ambulatory Radha Rodas Facility:[facility] Start: 10-18-2024 End: 10-18-2024 Patient encounter procedure Alejandro Roy DO -[facility] Work Phone: Start: 10-18-2024 End: 10-18-[address] Radha Rodas DO Work Phone: [facility] Work Phone: Start: 10-14-[address] Meet Santos MD -[facility] Start: 09-08-2024 End: 09-08-[address] Radha Rodas DO Work Phone: [facility] Work Phone: Start: 09-08-2024 End: 09-08-[address] Meet Santos MD -Radiology, [facility] Work Phone: Start: 09-08-2024 End: 09-08-2024 ambulatory Radha Rodas Facility:[facility] Start: 09-06-2024 End: 09-06-[address] Radha Rodas DO Work Phone: [facility] Work Phone: Start: 09-06-2024 End: 09-06-[address] Meet [facility] MD [facility] Work Phone: Start: 09-06-2024 End: 09-06-2024 ambulatory Radha Rodas Facility:[facility] Start: 08-26-2024 End: 08-26-[address] Meet Santos MD -[facility] Work Phone: Start: 08-26-2024 End: 08-26-2024 ambulatory Alejandro Roy Facility:[facility] Start: 07-12-2024 End: 07-12-2024 Patient encounter procedure Azul Mena PA -Laboratory Work Phone: Start: 07-12-2024 End: 07-12-2024 [facility] Start: 07-05-2024 End: 07-05-2024 Patient encounter procedure Alejandro Roy DO -Laboratory Work Phone: Start: 07-05-2024 End: 07-05-2024 Patient encounter procedure Alejandro Roy DO -[facility] Work Phone: Start: 07-05-2024 End: 07-05-2024 ambulatory Alejandro Roy Facility:[facility] Start: 07-05-2024 End: 07-05-2024 ambulatory Alejandro Roy Facility:[facility] Start: 05-18-2024 End: 05-18-[address] Radha Rodas DO -Laboratory Work Phone: Start: 05-18-2024 End: 05-18-2024 ambulatory Radha Rodas Facility:[facility] Start: 05-10-2023 End: 05-10-[address] Radha Rodas Work Phone: [facility] Work Phone: Start: 05-10-2023 End: 05-10-[address] Radha Rodas Work Phone: [facility]-Labor[facility] Work Phone: Start: 03-18-2023 End: 03-18-[address] Radha Rodas Work Phone: [facility] Work Phone: Start: 03-18-2023 End: 03-18-[address] Radha Rodas Work Phone: [facility]-Outpatient Breast Imaging Work Phone: Start: 02-15-2023 End: 02-15-[address] Radha Rodas Work Phone: [facility] Work Phone: Start: 05-02-2022 End: 05-02-[address] Radha Rodas Work Phone: [facility] Work Phone: Start: 05-02-2022 End: 05-02-[address] Radha Rodas Work Phone: [facility]-Laboratory Start: 03-04-2022 End: 03-04-[address] Radha Rodas Work Phone: [facility] Work Phone: Start: 03-04-2022 End: 03-04-[address] Radha Rodas Work Phone: [facility]-Laboratory, Specimen Start: 03-02-2022 End: 03-02-[address] Radha Rodas Work Phone: [facility] Start: 02-14-2022 End: 02-14-[address] Radha Rodas Work Phone: [facility] Work Phone: Start: 02-14-2022 End: 02-14-[address] Radha Rodas Work Phone: [facility]-Outpatient [facility] Imaging Start: 02-13-2022 End: 02-13-[address] Radha Rodas Work Phone: [facility] Work Phone: Start: 02-13-2022 End: 02-13-[address] Radha Rodas Work Phone: [facility]-Cardiovascular Services Start: 01-28-2022 End: 01-28-[address] Radha Rodas Work Phone: [facility] Specia Procedures Date Procedure Procedure [...] Work Phone: Comment on above: Performed at: [place] [id number] Director: Cristhian Nath PhD, Phone: [phone] Start: 07-05-[address] Radha [...] Work Phone: Comment on above: Performed at: [address] [id number] Director: Talia Avendano MD, Phone: [phone] Start: 07-05-2024 Plantain (Congolese) RAST Dr. Radha Rodas D O Work [...] on above: Test not performed Start: 07-05-2024 ARBOR PRESS OPERATOR antibody measurement Dr. Radha Rodas DO Work Phone: Comment on above: Test not performed Start: 03-18-[address] Radha Rodas Work Phone: Start: 02-14-[address] Radha Rodas Work Phone: Start: 01-28-2022 Rad[address] examination of knee [address] Radha Rodas Work Phone: Start: 12-13-2018 Antibody screen Comment on above: Performed By: #### T&S #### [place] [id number] Urine culture Dr. Radha Rodas Work Phone: Plan of Treatment Date Care Activity Detail Author Start: 11-17-2024 Egd transoral biopsy single/multiple EGD BIOPSY SINGLE/MULTIPLE [facility] Start: 11-17-2024 Patient discharge [facility] Start: 10-14-2024 Immunoglobulin measurement [facility] Start: 10-14-2024 Serum immunofixation [facility] Start: 10-14-2024 [facility] Albumin [Moles/volum e] in Serum or Plasma [facility] Albumin/Globulin ratio [facility] C reactive protein [Mass/volume] in Serum or Plasma [facility] CBC W Auto Different ial panel - Blood [facility] CBC W Auto Different ial panel - Blood [facility] Cobalamin (Vitamin B 12) [Mass/volume] in Serum or Plasma [place] [facility] 1999 panel - Serum or [facility] - Serum or Plasma [facility] Electrophoresis: [id number] [facility] Electrophoresis: alicia ma globulin [facility] Erythrocyte sediment ation rate [facility] Globulin measurement [facility] Hepatitis B surface antigen measurement [facility] Hepatitis B virus co re Ab [Presence] in Serum [facility] Hepatitis B virus davidson rface Ab [Units/volume] in Serum by Radioimmunoassay (NANDO) [facility] IgA [Mass/volume] in Serum or Plasma [facility] IgG [Mass/volume] in Serum or Plasma [facility] IgM [Mass/volume] in Serum or Plasma [facility] Immunoglobulin measurement [facility] Immunoglobulin measurement [facility] Lerna/lambda light c manda ratio [facility] Laboratory data interpretation [facility] Lactate dehydrogenas e measurement [facility] Lambda light chains. free [Mass/volume] in Serum or Plasma [facility] MR Abdomen WO and W contrast IV [facility] Patient Education Urinary Tract Infections in Women [facility] Work Phone: Patient referral [facility] Work Phone: Protein electrophore sis panel - Serum or Plasma [facility] Reticulocyte count [facility] Serum immunofixation [facility] Serum immunofixation [facility] Urine kappa light ch ain measurement [facility] Payers Date Payer Category Payer Medicare [id number] 2024 Self-pay [id number] Medicare [id number] Private Health Insurance [id number] Unknown [id number] Unknown [id number] 2.16.8 [id number] Unknown [id number] 2.16.8 [id number] Unknown [id number] 2.16.8 40.1.083943.3.579.2.462 Unknown [id number] 2.16.8 40.1.220380.3.579.2.462 Unknown [id number] 2.16.8 40.1.710683.3.579.2.462 Unknown [id number] 2.16.8 40.1.728979.3.579.2.462 Unknown [id number] 2.16.8 40.1.084584.3.579.2.462 Unknown [id number] 2.16.8 40.1.292442.3.579.2.462 Unknown [id number] 2.16.8 40.1.232395.3.579.2.462 Unknown [id number] 2.16.8 40.1.582605.3.579.2.462 Unknown [id number] 2.16.8 40.1.721560.3.579.2.462 Unknown [id number] 2.16.8 40.1.904166.3.579.2.462 Unknown [id number] 2.16.8 40.1.010975.3.579.2.462 Unknown [id number] 2.16.8 40.1.046094.3.579.2.462 Unknown [id number] 2.16.8 40.1.621077.3.579.2.462 Unknown [id number] 2.16.8 40.1.630551.3.579.2.462 Unknown [id number] 2.16.8 40.1.971060.3.579.2.462 Unknown [id number] 2.16.8 40.1.003769.3.579.2.462 Social History Date Type Detail Facility [facility] Work Phone: Start: 1950 Sex Assigned At Female W [facility] Start: 01-28-2022 End: 02-15-2023 Tobacco smoking status NHIS Unknown if ever smoked [facility] Start: 08-26-2024 End: 11-15-2024 Tobacco smoking status NHIS Never smoked tobacco (finding) [facility] Start: 09-10-2024 End: 09-14-2024 Sex Female (finding) [facility] Goals Date Patient Goal Desired Activity /State Mental Status Date Assessment Result Facility 11-17-2024 Cognitive function Level Of Consciousness Sedated [facility] Work Phone: 11-17-2024 Cognitive function Voice/Name [facility] Work Phone: Clinical Notes 08-07-2021 to 02-10-2025 Note Date & Type Note Facility 02-10-2025 Progress note [facility] Services 02-10-2025 Progress note Note Date/Time February 10, 2025 2:20pm [facility] H ealt System [facility] [address] [place] [address] OFFICE VISIT Date of Service: 02/10/25 1327 MR#: [id number] Acct: [id number] Name: OLGA STAFFORD Rep #: [id number] : 1950 From: Meet Santos MD Age/Sex: 74/F Location: [facility] Status: Signed HPI Subjective Date of [...] well, still getallergic reaction to certain foods. [facility] Medical History Wears glasses Post-menopausal Alcohol [...] IgM 111 IgE 29 LORENZO M-Fabián Free Lerna LC, Quant Free Lambda LC, Quant Free Lerna/Lambda Ratio 10/14/24 02/03/25 14:04 08:17 WBC 4.5 [...] 102 IgE LORENZO M-Fabián Not Observed Free Lerna LC, Quant 43.2 H Free Lambda LC, Quant 46.9 H Free Lerna/Lambda Ratio 0.92 Exam Physical Exam Const alert, [...] applicable) CC: Dr. Radha Rodas DO ~ [place] [facility] Work Phone: 1(562) 653-253406-18-2025 Consult note [facility] Medical Records Department [address] [place] [address] Anesthesia Postop Eval I 11/17/24 07 MR#: [id number] Acct: [id number] Name: OLGA STAFFORD Rep #:[id number] : 1950 74 From: Tomasz Hagan PCP: Dr. Radha Rodas, DO Status:[facility] Y Race: C Location: [place] [address] Anesthesia: Postop Eval I Current Vital Signs [...] 1 completed: Yes 11/17/24711 > Date _ Tomasz Das Signature: Date CC: ~ Signed [facility]06-18-2025 Procedure note [facility] Medical Records Department [address] [place] [address] EGD Report MR#: [id number] Acct: [id number] Name: OLGA STAFFORD Rep #:[id number] : 1950 74 From: Alejandro Roy DO PCP: Dr. Radha Rodas, DO Status:[facility] Patient Name: Olga Stafford Procedure Date: 11/17/2024 6:09 AM Date of : 1950 Age: 74 Procedure: Upper GI endoscopy Indications: Epigastric abdominal pain, Functional Dyspepsia, Failure to respond to medical treatment Providers: Alejandro Ryo DO Referring MD: Radha oRdas Medicines: Monitored Anesthesia Care Patient Profile: This [...] pathology results. Procedure Code(s): --- Professional --- 66347, Small intestinal endoscopy, enteroscopy beyond second portion of duodenum, not including ileum; with biopsy, single or multiple CPT copyright 2021 [employer] [place] [employer]. All rights reserved. The codes documented in this report are preliminary and upon roll up helper review may be revised to meet current compliance requirements. Alejandro Roy DO 11/17/2024 7:06:53 AM This report has been signed electronically. Number of Addenda: 0 Note Initiated On: 11/17/2024 6:09 AM 11/17/24 0707 Date _ Alejandro Roy DO Cosigner Signature: Date (if indicated) CC: Dr. Radha Rodas DO; Alejandro Roy DO ~ Date Dictated: 11/17/24 0609 Date Transcribed: Working Supervisor: RF Signed [facility]06-18-2025 Procedure note [facility] Medical Records Department [address] [place] [address] Operative Report - CC Letter MR#: [id number] Acct: [id number] Name: RIVERAOLGA Rep #:[id number] : 1950 74 From: Alejandro Roy DO PCP: Dr. Radha Rodas DO Status:[facility] 11/17/2024 Radha Rodas [address] [facility] [place] [address] [place] [address] Re : Upper GI endoscopy procedure for [...] ~ Date Dictated: 11/17/24 0609 Date Transcribed: Working Supervisor: RF Signed [facility]06-18-2025 History and physical note [facility] Medical Records Department [address] [place] [address] History & Physical Exam 11/17/24 0649 MR#: [id number] Acct: [id number] Name: OLGA STAFFORD Rep #:[id number] : 1950 74 From: Alejandro Roy DO PCP: Dr. Radha Rodas DO Status:[facility] Location: [place] [address] HPI - General General Date of Admission: [...] she underwent imaging by her PCP at [facility] that showed a large amount of stool and delayed gastric emptying on a gastric emptying study. From 2013 and 2021 she had random bouts of vomiting probably eating types of foods such as, chickpeas, fish, pepitas, black beans, pecans and walnuts. Her treatment up until 2021 was food avoidance. In July 2021 she had saw an pneumatic tester mechanic at previous clinic and was diagnosed withfood [...] 2-3 days and takes Miralax as needed. [facility] Medical History Wears glasses Post-menopausal Alcohol [...] of the right upper quadrant was performed. [employer] S-shear waveelastography was performed for non-invasive assessment [...] Radha Rodas DO; Alejandro Roy DO~ Signed [facility]06-18-2025 [facility] Medical Records Department [address] [place] [address] History Physical Exam 11/17/24 0649 MR#: [id number] Acct: [id number] Name: OLGA STAFFORD Rep #: [id number] : 1950 74 From: Alejandro Roy DO PCP: Dr. Radha Rodas DO Status:[facility] Location: [place] [address] HPI - General General Date of Admission: [...] she underwent imaging by her PCP at [facility] that showed a large amount of stool and delayed gastric emptying on a gastric emptying study. From 2013 and 2021 she had random bouts of vomiting probably eating types of foods such as, chickpeas, fish, pepitas, black beans, pecans and walnuts. Her treatment up until 2021 was food avoidance. In July 2021 she had saw an pneumatic tester mechanic at previous clinic and was diagnosed with [...] 2-3 days and takes Miralax as needed. [facility] Medical History Wears glasses Post-menopausal Alcohol [...] normoactive bowel sounds, soft (more content not included)...[facility]06-18-2025 Consult note [facility] Medical Records Department [address] [place] [address] Pre-Anesthesia Evaluation 11/17/24623 MR#: [id number] Acct: [id number] Name: OLGA STAFFORD Rep #:[id number] : 1950 74 From: Usman Peguero MD PCP: Dr. Radha Rodas, DO Status:[facility] Y Race: C Location: [place] [address] ASA Classification* ASA Classification ASA Classification: 2 [...] Procedure(s): EGD Anesthesia History Anesthesia History - flight radio officer: Anesthesia History - flight radio officer Hx Hospitalization No 11/15/24 13:17 Any Problems [...] take am of surgery PONV PONV - flight radio officer: PONV - flight radio officer Female Yes 11/15/24 13:17 HX of Motion [...] 11/17/24 05:55 Respiratory Assessment Respiratory Assessment - flight radio officer: Respiratory Tract Infection Hx - flight radio officer Hx Respiratory Tract Infection No 11/15/24 13:17 STOP Sleep Apnea STOP Sleep Apnea - flight radio officer: STOP Sleep Apnea - flight radio officer Hx Hypertension No 11/15/24 13:17 Hx Sleep [...] Tobacco Use History Tobacco Use History - flight radio officer: Tobacco Use History - flight radio officer Tobacco Use Smoking Status Never smoker 11/15/24 13:17 Hx Tobacco Use No 11/15/24 13:17 Years Smoking Packs Smoked per Day Smoking Cessation Date was within the last 15 years Hx Smoking Cessation Date Hx Smoking Cessation Counseling Hematologic Medial History Hematologic Hx - flight radio officer: 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 Hx of Blood Transfusion No 11/15/24 13:17 [...] confused, unrespo /Reproduction History /Reproductive History - flight radio officer: /Reproductive Hx- flight radio officer Hx Now Gestational Age (in weeks): EDC: [...] MD Cosigner Signature: Date CC: ~ Signed [facility]05-19-2025 Evaluation note* Diagnosis Onset Date Resolution Status [...] in adult acute November 17, 2024 5:24am [place] [facility] Work Phone: [phone] Evaluation note* Diagnosis Onset Date Resolution Status [...] Hypergammaglobulinemia, unspecified resolved February 10, 2025 1:25pm [facility] Services Work Phone: 1(821) 679-667404-11-2025 Radiology Diagnostic study note [facility] Imaging Services [address] [place] [address] Bone Survey Comp(Axial&Append) MR#: [id number] Acct: [id number] Name: OLGA STAFFORD Rep #: [id number] : 1950 F 74 From: Margret Gutierrez MD PCP: Dr. Radha Rodas DO Status: REG CLI Study:Bone Survey Comp(Axial&Append) Date of Exam: 09/08/24 Exam# [id number] Ordering Dr: Kevin Santos MD EXAM: XR [...] Santos MD; Dr. Radha Rodas DO ~ Working Supervisor: Signed [place] 410[address]-07-2025 Radiology Diagnostic study note [facility] Imaging Services [address] [place] [id number] ABD Limited w/ Elastography MR#: [id number] Acct: [id number] Name: OLGA STAFFORD Rep #: [id number] : 1950 F 74 From: Margret Stephens MD PCP: Dr. 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 [employer] S-shear waveelastography was performed for non-invasive assessment [...] (15kPa): Significant fibrosis / cirrhosis Reading Location: [id number] CC: Dr. Meet Santos MD; Dr. Radha Rodas DO ~ Working Supervisor: Signed [facility]2025 Evaluation note* Diagnosis Onset Date Resolution Status [...] in adult acute November 17, 2024 5:24am [facility] Work Phone: 1(786) 781-302602-03-2025 Evaluation note* Diagnosis Onset Date Resolution Status Admit Date Food allergy acute July 9:18am Hypergammaglobulinemia, unspecified acute August 26, 2024 2:46pm [facility] Work Phone: 1(495) 597-321703-08-2022 NoteHNO ID: [id number] Author: Timur Quezada MD Service: ? Author [...] reaction to insect sting. FOOD ALLERGY: See AKUTAN LATEX: The patient does not have a [...] only) - PAST SURGICAL HISTORY OF 2005 [facility], Dr. Shoemaker (normal) FAMILY HISTORY: Allergic rhinitis:no. Asthma: no. Eczema: no. Cystic fibrosis: no. Immunodeficiency: no. 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 with 3 children Social History Tobacco Use Smoking status: Never Smoker Smokeless tobacco: Never Used ENVIRONMENTAL HISTORY: Lives in a house Age of home: 18 years Heating: forced hot air, gas Woodburning fireplace in the home: no Air conditioning: Central air Basement: Dry basement Guru: [id number] carpeting Dust mite controls: Dust mite controls [...] nuts should be eliminat (more content not included)...[facility] note Author Usman Peguero [facility] Note Date/Time November 17, 2024 6:29 am [facility] Medical Records Department [address] [place] [id number] Pre-Anesthesia Evaluation 11/17/24 0624 MR#: [id number] Acct: [id number] Name: OLGA STAFFORD Rep #:[id number] : 1950 74 From: Usman Peguero MD PCP: Dr. Radha Rodas, DO Status:[facility] Y Race: C Location: [place] [address] ASA Classification* ASA Classification ASA Classification: 2 [...] Procedure(s): EGD Anesthesia History Anesthesia History - flight radio officer: Anesthesia History - flight radio officer Hx Hospitalization No 11/15/24 13:17 Any Problems [...] take am of surgery PONV PONV - flight radio officer: PONV - flight radio officer Female Yes 11/15/24 13:17 HX of Motion [...] 11/17/24 05:55 Respiratory Assessment Respiratory Assessment - flight radio officer: Respiratory Tract Infection Hx - flight radio officer Hx Respiratory Tract Infection No 11/15/24 13:17 STOP Sleep Apnea STOP Sleep Apnea - flight radio officer: STOP Sleep Apnea - flight radio officer Hx Hypertension No 11/15/24 13:17 Hx Sleep [...] Tobacco Use History Tobacco Use History - flight radio officer: Tobacco Use History - flight radio officer Tobacco Use Smoking Status Never smoker 11/15/24 13:17 Hx Tobacco Use No 11/15/24 13:17 Years Smoking Packs Smoked per Day Smoking Cessation Date was within the last 15 years Hx Smoking Cessation Date Hx Smoking Cessation Counseling Hematologic Medial History Hematologic Hx - flight radio officer: 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 Medical Records Department [address] [place] [address] Anesthesia Postop Eval I 11/17/24710 MR#: [id number] Acct: [id number] Name: OLGA STAFFORD Rep #:[id number] : 1950 74 From: Tomasz Hagan PCP: Dr. Radha Rodas, DO Status:[facility] Y Race: C Location: [place] [address] Anesthesia: Postop Eval I Current Vital Signs [...] Tomasz Das Signature: Date CC: ~ Signed [facility] Work Phone: Evaluation noteNo assessment information available [facility] Work Phone: Evaluation note* Diagnosis Onset Date Resolution Status Pes anserine bursitis acute [facility] Work Phone: Evaluation note* Diagnosis Onset Date Resolution Status Pes anserine bursitis acute Urinary tract infection acut e [facility] Work Phone: Evaluation note* Diagnosis Onset Date Resolution Status Bug bite without infection a cute [facility] Work Phone: History and physical note Author Alejandro Friend [facility] Note Date/Time November 17, 2024 6:52 am [facility] Medical Records Department [address] [place] [address] History & Physical Exam 11/17/24 0649 MR#: [id number] Acct: [id number] Name: OLGA STAFFORD Rep #:[id number] : 1950 74 From: Alejandro Roy DO PCP: Dr. Radha Rodas DO Status:[facility] Location: [place] [address] HPI - General General Date of Admission: [...] she underwent imaging by her PCP at [facility] that showed a large amount of stool and delayed gastric emptying on a gastric emptying study. From 2013 and 2021 she had random bouts of vomiting probably eating types of foods such as, chickpeas, fish, pepitas, black beans, pecans and walnuts. Her treatment up until 2021 was food avoidance. In July 2021 she had saw an pneumatic tester mechanic at previous clinic and was diagnosed withfood [...] 2-3 days and takes Miralax as needed. [facility] Medical History Wears glasses Post-menopausal Alcohol [...] of the right upper quadrant was performed. [employer] S-shear wave elastography was performed for non-invasive [...] Radha Rodas, ; Alejandro Roy, ~ Signed [facility] Work Phone: Reason for referral (narrative)No reason for referral information [facility] Work Phone: Summary Purpose Family History No Family History Records Found Relationship Condition Age at Onset Recorded Date/T micheal mother Hypertension Unknown Cerebrovascular accident (CVA) Unknown father Hypertension Unknown Malignant neoplasm of prostate Unknown Advance Directives No Advanced Directives Records Found Advance Directive Response Recorded Date/ Time Advance Directives Yes October 26 12:53am Living Will Yes October 26, 2013 1 2:53am Power of Flasher Adjuster Yes October 26, 2013 12:53am Advance Directive Response Recorded Date/ Time Advance Directives Yes October 25 11:53pm Living Will Yes October 25, 2013 1 1:53pm Power of Flasher Adjuster Yes October 25, 2013 11:53pm Advance Directive Response Recorded Date/ Time Advance Directives Yes October 26 12:53am Advance Directive Response Recorded Date/ Time Do you have a Healthcare Power of Flasher Adjuster? No November 15, 2024 1:17pm Advance Directives Yes October 18 9:32am Advance Directive Response Recorded Date/ Time Advance Directives Yes October 18 9:32am Do you have a Healthcare Power of Flasher Adjuster? No November 15, 2024 1:17pm Procedure Findings Note HNO ID: [id number] Author: Kumar Lin Service: General Surgery Author Type: Physician Type: Procedures Filed: 01/07/2019 4:51 PM Note Text: BEDSIDE PROCEDURE NOTE WOUND REPAIR Performed by: Juan Pablo Aguilar DO Authorized by: Lydia Fox MD Date/Start Time: 12/13/2018 4:30 PM Consent/[place] Protocol Written consent obtained: No, emergent procedure [...] section and content) DATE CREATED AUTHOR 12/20/2018 [facility] DATE CREATED AUTHOR AUTHOR'S ORGANIZ ATION 01/07/2019 [facility] DATE CREATED AUTHOR AUTHOR'S ORGANIZ ATION 08/28/2021 [facility] DATE CREATED AUTHOR AUTHOR'S ORGANIZ ATION 03/30/2025 [facility] Goals (unrecognized section and content) Goals may [...] 2024 End: October 21, 2024 Dr. Radha Roads DO Primary Care Provider Active Start: October [...] BE BASED ON THE PRIMARY CLINICAL RECORDS. [facility] [employer]. provides no warranty or guarantee of the accuracy or completeness of information in this document.
[2025-04-01] MEDS: Pantoprazole Sodium 40 MG in 0.9% Normal Saline (100mL MB+) 100 ML 330 MG IV ×2 (05:13→21:37)
[2025-04-01] MEDS: 0.9% Saline Lock 10 ML Syringe IV ×2 (05:13→13:18)
[2025-04-01 06:08] LABS: Hematocrit 36.5 % (37-47); Hemoglobin 12.3 g/dL (12.0-15.0); Immature Granulocytes Count 0.020 X10^3/uL (0.0-0.0); Mean Corp Hgb Conc 33.7 g/dL (32-36); Mean Corpuscular Volume 84.1 fL (81-99); Mean Platelet Vol. 9.2 fl (6.2-12.0); NRBC Flagged by Analyzer 0 % (0-5); Platelet Count 178 K/mm3 (150-450); RBC Distribution Width CV 13.1 % (11.6-14.6); RBC Distribution Width SD 40.3 fl (35.1-43.9); Red Blood Count 4.34 M/mm3 (4.2-5.4); White Blood Count 7.6 K/mm3 (4.4-11.0)
[2025-04-01 06:38] LABS: AST(SGOT) 32 U/L (<=31); Alanine Aminotransfer ALT/SGPT 15 U/L (<=34); Albumin, Serum 3.7 g/dL (3.4-4.8); Alkaline Phosphatase 57 U/L (35-104); Anion Gap 9 (5-15); BUN 18 mg/dL (4-19); BUN/Creat Ratio 29.7 RATIO (10-20); Calcium,Total 8.2 mg/dL (7.6-11.0); Carbon Dioxide 22.6 mmol/L (21.0-32.0); Chloride 106 mmol/L (98-108); Estimated Creatinine Clearance 49.30 ml/min (50-250); Globulin 2.4 g/dL (2.2-4.2); Glucose 164 mg/dL (70-99); Potassium 3.8 mmol/L (3.3-5.1)
[2025-04-01 07:08] LABS: Lipase > 3000 U/L (13-75)
[2025-04-01] MEDS: Lactated Ringers 1,000 ML 250 ML IV ×4 (07:28→20:36)
[2025-04-01] MEDS: Budesonide 3 MG CAPSULE.EC 6 MG PO (09:55)
--- NOTE | 2025-04-01 12:16 | PN.HOSP_ITS ---
Reason for Visit Chief Complaint: Abdominal pain, N/V. Objective Data Objective Data Vital Signs: Vital Signs Temp Pulse Resp BP Pulse Ox O2 Del Method 98.0 F 65 16 130/61 H 98 Room Air 04/01/25 09:40 04/01/25 09:40 04/01/25 09:40 04/01/25 09:40 04/01/25 09:40 04/01/25 09:40 Oxygen Delivery Method Room Air Weight: 129 lb 10.109 oz Body Mass Index (BMI) 23.8 Intake & Output: Intake and Output for Last 24 Hours 03/30/25 03/31/25 04/01/25 23:59 23:59 23:59 Intake Total 0 / 0 2099 / 2099 Balance 0 / 0 2099 / 2099 Lab / Micro Data 04/01/25 05:49 04/01/25 05:49 Labs: Laboratory Results - last 24 hr 04/01/25 00:02: WBC 5.5, RBC 4.67, Hgb 13.4, Hct 39.7, MCV 85.0, MCH 28.7, MCHC 33.8, RDW Std Deviation 40.1, RDW Coeff of Eulalio 13.1, Plt Count 189, MPV 9.6, Immature Gran % (Auto) 0.200, Neut % (Auto) 74.8 H, Lymph % (Auto) 17.8 L, [place] % (Auto) 7.0, Eos % (Auto) 0.0, Baso % (Auto) 0.2, Absolute Neuts (auto) 4.1, Absolute Lymphs (auto) 0.97, Nucleated RBC % 0, Sodium 138, Potassium 4.0, Chloride 106, Carbon Dioxide 20.4 L, Anion Gap 12, BUN 18, Creatinine 0.69 L, Estim Creat Clear Calc 51.40, Est GFR (MDRD) Non-Af 90, BUN/Creatinine Ratio 25.8 H, Glucose 168 H, Calcium 8.9, Total Bilirubin 0.63, Direct Bilirubin 0.23, AST 35 H, ALT 17, Alkaline Phosphatase 63, Total Protein 6.9, Albumin 4.0, Globulin 2.8, Amylase 2076 H, Lipase > 3000 H 04/01/25 05:49: WBC 7.6, RBC 4.34, Hgb 12.3, Hct 36.5 L, MCV 84.1, MCH 28.3, MCHC 33.7, RDW Std Deviation 40.3, RDW Coeff of Eulalio 13.1, Plt Count 178, MPV 9.2, Immature Gran % (Auto) 0.300, Neut % (Auto) 83.0 H, Lymph % (Auto) 9.8 L, [place] % (Auto) 6.8, Eos % (Auto) 0.0, Baso % (Auto) 0.1, Absolute Neuts (auto) 6.3, Absolute Lymphs (auto) 0.75 L, Nucleated RBC % 0, Sodium 137, Potassium 3.8, Chloride 106, Carbon Dioxide 22.6, Anion Gap 9, BUN 18, Creatinine 0.60 L, Estim Creat Clear Calc 49.30 L, Est GFR (MDRD) Non-Af 93, BUN/Creatinine Ratio 29.7 H, Glucose 164 H, Calcium 8.2, Total Bilirubin 0.48, AST 32, ALT 15, Alkaline Phosphatase 57, Total Protein 6.2, Albumin 3.7, Globulin 2.4, Albumin/Globulin Ratio 1.5, Lipase > 3000 H Radiography Diagnostic Testing: Radiology Impression Abdomen/Pelvis CT 04/01/25 23:55 IMPRESSION: Mild peripancreatic inflammatory fat stranding suggestive of acute pancreatitis. Mildly prominent pancreatic duct. Common bile duct stent is noted in good position. Mild biliary ductal dilatation. Diffuse thickening of the stomach and the duodenum, possibly reactive or secondary to gastro duodenitis without perforation.. Calcified atheromatous plaques of the aorta and iliac arteries. Small sliding hiatal hernia. Contrast is noted in the gallbladder, benign finding from prior intervention. Pneumobilia is noted, benign finding secondary to prior sphincterotomy and the presence of common bile duct stent. Mild bilateral basilar atelectatic pulmonary changes. Mild diffuse spondylosis. Grade 1 anterolisthesis of L4 on L5. Moderate amount of fecal residue in the large bowels. Chronic bone changes of Paget disease. Reading Location: [place] [address] Physical Exam Narrative Seen and examined. Patient had ERCP yesterday and stenting. Lipase more than 3000. Complain of severe upper abdominal pain 7/10 in intensity. Slightly better. Physical exam General: Alert, Oriented x3, Cooperative HEENT: Atraumatic, PERRLA, EOMI, Normocephalic. Oral: No Gingival or Mucosal Lesions/ Ulcerations Neck: Supple, No JVD, Negative Carotid Bruits Chest wall/Lungs: Air entry diminished in bilateral lung bases. No crepitation/rhonchi Cardiovascular: Regular rate and rhythm, Normal S1,S2, No M/G/R Abdomen: Bowel Sounds sluggish,, Soft, diffuse tenderness present predominantly epigastric region. No voluntary guarding. : No dysuria. No renal angle tenderness. No suprapubic tenderness. Extremities: No edema, Capillary Refill Less than 3 Seconds Skin: No rashes, No breakdown Musculoskeletal: No Tenderness to Palpation of Joints or Extremities Neurological: Cranial nerves II-XII grossly intact, DTR 2+/4. No acute focal neurological deficit. Psych/Mental Status: Flat affect Assessment & Plan Assessment/Plan (1) Acute pancreatitis: PLAN: Plan The patient is a 75 y/o F was admitted with nausea, vomiting, severe sharp stabbing abdominal pain at her ERCP for stent placed in CBD on 03/31/2024 #1. Acute pancreatitis probably secondary to ERCP/stent placement: Patient is being admitted to the floor. CT abdomen pelvis reviewed and shows peripancreatic infiltrates, CBD stent in good position, prominent main pancreatic duct, pneumobilia secondary to sphincterotomy and diffuse thickening of stomach and duodenum. Continue NPO. IV fluid resuscitation and pain control. Lipase more than 3000. GI consulted. Serum transaminases, ALP, total bilirubin normal range. Hematocrit 39.7, calcium 8.9 and BUN 18 in normal range. Does not meet criteria for severe pancreatitis. #2. Elevated BP without hypertensive diagnosis: BP elevated in the ED, possibly pain related/reactive from acute pancreatitis. Today it is better 133/50 #3. MASLD: RUQ ultrasound with elastography 09/06/24 with hepatic measurement 17 cm with fatty infiltration, stiffness measuring at that time 6.8 kPa, patient follows Dr. Ambrocio #4. 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 #6. GERD: Continue IV PPI. #7. DVT prophylaxis: SCDs, enoxaparin ordered Laboratory Results 04/01/25 00:02: WBC 5.5, RBC 4.67, Hgb 13.4, Hct 39.7, MCV 85.0, MCH 28.7, MCHC 33.8, RDW Std Deviation 40.1, RDW Coeff of Eulalio 13.1, Plt Count 189, MPV 9.6, Immature Gran % (Auto) 0.200, Neut % (Auto) 74.8 H, Lymph % (Auto) 17.8 L, [place] % (Auto) 7.0, Eos % (Auto) 0.0, Baso % (Auto) 0.2, Absolute Neuts (auto) 4.1, Absolute Lymphs (auto) 0.97, Nucleated RBC % 0, Sodium 138, Potassium 4.0, Chloride 106, Carbon Dioxide 20.4 L, Anion Gap 12, BUN 18, Creatinine 0.69 L, Estim Creat Clear Calc 51.40, Est GFR (MDRD) Non-Af 90, BUN/Creatinine Ratio 25.8 H, Glucose 168 H, Calcium 8.9, Total Bilirubin 0.63, Direct Bilirubin 0.23, AST 35 H, ALT 17, Alkaline Phosphatase 63, Total Protein 6.9, Albumin 4.0, Globulin 2.8, Amylase 2076 H, Lipase > 3000 H 04/01/25 05:49: WBC 7.6, RBC 4.34, Hgb 12.3, Hct 36.5 L, MCV 84.1, MCH 28.3, MCHC 33.7, RDW Std Deviation 40.3, RDW Coeff of Eulalio 13.1, Plt Count 178, MPV 9.2, Immature Gran % (Auto) 0.300, Neut % (Auto) 83.0 H, Lymph % (Auto) 9.8 L, [place] % (Auto) 6.8, Eos % (Auto) 0.0, Baso % (Auto) 0.1, Absolute Neuts (auto) 6.3, Absolute Lymphs (auto) 0.75 L, Nucleated RBC % 0, Sodium 137, Potassium 3.8, Chloride 106, Carbon Dioxide 22.6, Anion Gap 9, BUN 18, Creatinine 0.60 L, Estim Creat Clear Calc 49.30 L, Est GFR (MDRD) Non-Af 93, BUN/Creatinine Ratio 29.7 H, Glucose 164 H, Calcium 8.2, Total Bilirubin 0.48, AST 32, ALT 15, Alkaline Phosphatase 57, Total Protein 6.2, Albumin 3.7, Globulin 2.4, Albumin/Globulin Ratio 1.5, Lipase > 3000 H Clinical Impression(s) from Imaging Studies Abdomen/Pelvis CT 04/01/25 23:55 IMPRESSION: Mild peripancreatic inflammatory fat stranding suggestive of acute pancreatitis. Mildly prominent pancreatic duct. Common bile duct stent is noted in good position. Mild biliary ductal dilatation. Diffuse thickening of the stomach and the duodenum, possibly reactive or secondary to gastro duodenitis without perforation.. Calcified atheromatous plaques of the aorta and iliac arteries. Small sliding hiatal hernia. Contrast is noted in the gallbladder, benign finding from prior intervention. Pneumobilia is noted, benign finding secondary to prior sphincterotomy and the presence of common bile duct stent. Mild bilateral basilar atelectatic pulmonary changes. Mild diffuse spondylosis. Grade 1 anterolisthesis of L4 on L5. Moderate amount of fecal residue in the large bowels. Chronic bone changes of Paget disease. Reading Location: [place] Charges/Coding Visit Charges Inpatient E&M: 05949 Subs Hosp L2
--- NOTE | 2025-04-01 13:12 | CASEMGMT ---
Dx:acute pancreatitis s/p ERCP/stent LACE:1 6-Clicks:24 Medical record reviewed and patient evaluated for identification of discharge planning needs. Based on this review, at this time criteria are not present to indicate a need for discharge planning. Will remain available to assist with discharge planning needs as identified or requested.
[2025-04-01 13:23] LABS: CRP < 3.00 mg/L (0.0-3.0)
[2025-04-01] MEDS: Ensure Clear 120 ML Liquid PO ×2 (16:17→17:47)
--- NOTE | 2025-04-01 23:55 | CT_ITS ---
PROCEDURE: ABDOMEN/PELVIS W IV CONT ONLY 04/01/2025 REASON FOR EXAM: ABDOMINAL PAIN POST EGD/BILIARY STENT TECHNIQUE: Procedure Code: [id number] Modality: CT Procedure: ABDOMEN/PELVIS W IV CONT ONLY Coronal and Sagittal reconstruction series were provided. CONTRAST: OMNIPAQUE 350 VOLUME: 100 mL One or more dose reduction techniques were used (e.g., Automated exposure control, adjustment of the mA and/or kV according to patient size, use of iterative reconstruction technique. RADIATION DOSE SUMMARY: CTDlvol: 8.47 mGy DLP: 405 mGycm COMPARISON: ERCP on 03/31/2025. MRI on 12/01/2024. FINDINGS: Mild peripancreatic inflammatory fat stranding suggestive of acute pancreatitis. Mildly prominent pancreatic duct. Common bile duct stent is noted in good position. Mild biliary ductal dilatation. Diffuse thickening of the stomach and the duodenum, possibly reactive or secondary to gastro duodenitis without perforation.. Calcified atheromatous plaques of the aorta and iliac arteries. Small sliding hiatal hernia. Contrast is noted in the gallbladder, benign finding from prior intervention. Pneumobilia is noted, benign finding secondary to prior sphincterotomy and the presence of common bile duct stent. Mild bilateral basilar atelectatic pulmonary changes. Mild diffuse spondylosis. Grade 1 anterolisthesis of L4 on L5. Moderate amount of fecal residue in the large bowels. Chronic bone changes of Paget disease. Normal liver. Normal spleen. Normal pancreas. Normal bilateral adrenal glands. Normal size of the right kidney. There is no right renal mass. There are no right renal calculi. There is no right hydronephrosis. Normal visualized right ureter. Normal size of the left kidney. There is no left renal mass. There are no left renal calculi. There is no left hydronephrosis. Normal visualized left ureter. Normal colon. The appendix is visualized and appears normal. Normal abdominal aorta. Normal inferior vena cava. Normal retroperitoneum. Normal urinary bladder. Well-defined enhancing 1.2 cm uterine fibroid. There is no pelvic mass lesion or lymphadenopathy. Normal abdominal wall. CT/Abdomen/Pelvis W IV Cont ONLY IMPRESSION: Mild peripancreatic inflammatory fat stranding suggestive of acute pancreatitis . Mildly prominent pancreatic duct. Common bile duct stent is noted in good position. Mild biliary ductal dilatation. Diffuse thickening of the stomach and the duodenum, possibly reactive or second sissy to gastro duodenitis without perforation.. Calcified atheromatous plaques of the aorta and iliac arteries. Small sliding hiatal hernia. Contrast is noted in the gallbladder, benign finding from prior intervention. Pneumobilia is noted, benign finding secondary to prior sphincterotomy and the presence of common bile duct stent. Mild bilateral basilar atelectatic pulmonary changes. Mild diffuse spondylosis. Grade 1 anterolisthesis of L4 on L5. Moderate amount of fecal residue in the large bowels. Chronic bone changes of Paget disease. Reading [facility]
--- NOTE | 2025-04-02 00:55 | CON.PCM.GI_ITS ---
HPI Consult Data Date of Consult: 04/02/25 HPI Narrative Reason for Consultation: Pancreatitis HPI Narrative: ALIE SALMERON, is a 75-year-old woman with a history of episodic vomiting who presented with abdominal pain, hyperglycemia, and CT findings consistent with acute pancreatitis. 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 She reports tolerating a small amount of a clear liquid diet at present. CA 19-9 is pending. PFSH Medical History Loss of hearing Protein intolerance History of steroid therapy Fatty liver Vomiting Heartburn Leg cramps Wears glasses Post-menopausal Alcohol use Arthritis Injury of head and neck Loss of consciousness Non-smoker Home Medications ?Medication ?Instructions ?Recorded ?Last Taken ?Type polyethylene glycol 3350 17 4 g PO QDAY PRN constipati on 02/10/25 Unknown History gram/dose oral powder (Miralax) budesonide 3 mg 6 mg (2 x 3 mg) PO QDAY #60 ea 02/16/25 03/30/25 Rx capsule,delayed,extended release Allergy/AdvReac Type Severity Reaction Status Date / Time Penicillins Allergy Hives Verified 03/31/25 23:36 Family History Mother Hypertension CVA (cerebral vascular accident) Father Hypertension Prostate cancer Surgical History History of biliary stent insertion Hx of colonoscopy History of esophagogastroduodenoscopy (EGD) Hx of appendectomy Social History household members: spouse Smoking Status: Never smoker alcohol intake: current alcohol intake frequency: holidays/special occasions only substance use type: does not use what type of physical activity do you participate in: walking and bicycling ROS Constitutional Constitutional: Denies fatigue, fever(s), poor appetite, weight gain or weight loss Gastrointestinal Gastrointestinal: Denies belching, bloating, change in bowel habits, change in stool character, chewing difficulty, coffee ground emesis, constipation, cramping, diarrhea, dyspepsia, dysphagia, early satiety, excessive flatus, fecal incontinence, heartburn, hematemesis, hematochezia, hemorrhoids, loose stools, melena, nausea, odynophagia, rectal bleeding, tenesmus, vomiting or weight changes Physical Exam Narrative Physical exam General: Alert, Oriented x3, Cooperative HEENT: Atraumatic, PERRLA, EOMI, Normocephalic. Oral: No Gingival or Mucosal Lesions/ Ulcerations Neck: Supple, No JVD, Negative Carotid Bruits Chest wall/Lungs: Air entry diminished in bilateral lung bases. No crepitation/rhonchi Cardiovascular: Regular rate and rhythm, Normal S1,S2, No M/G/R Abdomen: Bowel Sounds sluggish,, Soft, diffuse tenderness present predominantly epigastric region. No voluntary guarding. : No dysuria. No renal angle tenderness. No suprapubic tenderness. Extremities: No edema, Capillary Refill Less than 3 Seconds Skin: No rashes, No breakdown Musculoskeletal: No Tenderness to Palpation of Joints or Extremities Neurological: Cranial nerves II-XII grossly intact, DTR 2+/4. No acute focal neurological deficit. Psych/Mental Status: Flat affect Lab / Micro Data 04/01/25 05:49 04/01/25 05:49 Labs: Laboratory Results - last 24 hr 04/01/25 05:49: WBC 7.6, RBC 4.34, Hgb 12.3, Hct 36.5 L, MCV 84.1, MCH 28.3, MCHC 33.7, RDW Std Deviation 40.3, RDW Coeff of Eulalio 13.1, Plt Count 178, MPV 9.2, Immature Gran % (Auto) 0.300, Neut % (Auto) 83.0 H, Lymph % (Auto) 9.8 L, Cochran % (Auto) 6.8, Eos % (Auto) 0.0, Baso % (Auto) 0.1, Absolute Neuts (auto) 6.3, Absolute Lymphs (auto) 0.75 L, Nucleated RBC % 0, ESR 1, Sodium 137, Potassium 3.8, Chloride 106, Carbon Dioxide 22.6, Anion Gap 9, BUN 18, C reatinine 0.60 L, Estim Creat Clear Calc 49.30 L, Est GFR (MDRD) Non-Af 93, B UN/Creatinine Ratio 29.7 H, Glucose 164 H, Calcium 8.2, Total Bilirubin 0.48, AST 32, ALT 15, Alkaline Phosphatase 57, C-React Prot Ext Range < 3.00, Total Protein 6.2, Albumin 3.7, Globulin 2.4, Albumin/Globulin Ratio 1.5, Lipase > 3000 H Imaging Radiology Impression Abdomen/Pelvis CT 04/01/25 23:55 IMPRESSION: Mild peripancreatic inflammatory fat stranding suggestive of acute pancreatitis. Mildly prominent pancreatic duct. Common bile duct stent is noted in good position. Mild biliary ductal dilatation. Diffuse thickening of the stomach and the duodenum, possibly reactive or secondary to gastro duodenitis without perforation.. Calcified atheromatous plaques of the aorta and iliac arteries. Small sliding hiatal hernia. Contrast is noted in the gallbladder, benign finding from prior intervention. Pneumobilia is noted, benign finding secondary to prior sphincterotomy and the presence of common bile duct stent. Mild bilateral basilar atelectatic pulmonary changes. Mild diffuse spondylosis. Grade 1 anterolisthesis of L4 on L5. Moderate amount of fecal residue in the large bowels. Chronic bone changes of Paget disease. Reading Location: [place] [address] Assessment & Plan Assessment/Plan (1) Acute pancreatitis: (2) Choledochocyst: (3) Abdominal pain: PLAN: 75-year-old woman admitted with acute pancreatitis, likely post-ERCP, given the temporal association between the procedure and the onset of symptoms . The patient's initial presentation included a dilated common bile duct and possible choledochal cyst, for which the ERCP was performed. The recent CT findings confirmed acute pancreatitis, which may be a known complication of ERCP [2]. She developed hyperglycemia, which is a common metabolic derangement during acute pancreatitis . Brown diagnoses and issues: * Acute pancreatitis (likely post-ERCP):?Currently managing with supportive care. Switched from Normal Saline to Lactated Ringer's solution, which is a standard recommendation for initial fluid resuscitation in acute pancreatitis due to potential benefits over normal saline in terms of reducing risk of systemic complications or SIRS [4]. 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 * Recent ERCP with biliary stent placement:?The procedure precipitating the current illness. * Hyperglycemia:?Secondary to acute pancreatitis. * Episodic vomiting:?Part of her initial presentation, currently improving as she tolerates a clear liquid diet. Plan * Continue supportive care for acute pancreatitis: * Continue current regimen of Lactated Ringer's IV fluids at appropriate rate. * Monitor fluid balance closely. * Advance diet as tolerated. Currently on clear liquids, encourage advancement to low-fat solid diet as symptoms improve. * Pain management: Continue PRN pain medication for abdominal pain. * Monitor serial amylase/lipase, LFTs, glucose, and calcium levels. * Manage hyperglycemia: * Monitor blood glucose levels frequently (e.g., Q6H). * Administer sliding scale insulin as needed per protocol. * Further workup/management of choledochal cyst/CBD stricture: * Review cytology results from ERCP. * Discuss definitive management options (surgical vs. endoscopic depending on final diagnosis and patient status) once pancreatitis resolves. Charges/Coding Visit Charges Inpatient E&M: 71712 Init Hosp L3
[2025-04-02] MEDS: Lactated Ringers 1,000 ML 250 ML IV ×4 (00:57→12:54)
[2025-04-02 03:55] LABS: Hematocrit 31.4 % (37-47); Hemoglobin 10.7 g/dL (12.0-15.0); Immature Granulocytes Count 0.010 X10^3/uL (0.0-0.0); Mean Corp Hgb Conc 34.1 g/dL (32-36); Mean Corpuscular Volume 85.1 fL (81-99); Mean Platelet Vol. 9.5 fl (6.2-12.0); NRBC Flagged by Analyzer 0 % (0-5); Platelet Count 141 K/mm3 (150-450); RBC Distribution Width CV 13.2 % (11.6-14.6); RBC Distribution Width SD 41.1 fl (35.1-43.9); Red Blood Count 3.69 M/mm3 (4.2-5.4); White Blood Count 5.2 K/mm3 (4.4-11.0)
[2025-04-02 04:22] LABS: AST(SGOT) 29 U/L (<=31); Alanine Aminotransfer ALT/SGPT 14 U/L (<=34); Albumin, Serum 3.3 g/dL (3.4-4.8); Alkaline Phosphatase 47 U/L (35-104); Anion Gap 7 (5-15); BUN 15 mg/dL (4-19); BUN/Creat Ratio 27.4 RATIO (10-20); Bilirubin, Direct 0.21 mg/dL (0.00-0.30); Calcium,Total 7.9 mg/dL (7.6-11.0); Carbon Dioxide 24.9 mmol/L (21.0-32.0); Chloride 103 mmol/L (98-108); Estimated Creatinine Clearance 49.30 ml/min (50-250); Globulin 2.1 g/dL (2.2-4.2); Glucose 106 mg/dL (70-99); Potassium 3.5 mmol/L (3.3-5.1)
[2025-04-02 04:34] LABS: Lipase 1035 U/L (13-75)
[2025-04-02 04:46] VITALS: BP 111/55; PULSE 56; RESP 16; TEMP 36.8; O2SAT 93
[2025-04-02 06:00] VITALS: BMI 25.7
[2025-04-02] MEDS: Pantoprazole Sodium 40 MG in 0.9% Normal Saline (100mL MB+) 100 ML 330 MG IV ×2 (08:50→21:04)
[2025-04-02] MEDS: Budesonide 3 MG CAPSULE.EC 6 MG PO (08:57)
[2025-04-02 09:07] VITALS: BP 130/61; PULSE 71; RESP 16; TEMP 36.9; O2SAT 96
[2025-04-02 09:40] VITALS: O2SAT 94
[2025-04-02 11:28] VITALS: BP 125/65; PULSE 56; RESP 16; TEMP 36.9; O2SAT 97
--- NOTE | 2025-04-02 12:44 | PCM.PN.HOSP ---
Reason for Visit Chief Complaint: Abdominal pain, N/V. Objective Data Objective Data Vital Signs: Vital Signs Temp Pulse Resp BP Pulse Ox O2 Del Method 98.4 F 56 L 16 125/65 H 97 Room Air 04/02/25 11:28 04/02/25 11:28 04/02/25 11:28 04/02/25 11:28 04/02/25 11:28 04/02/25 11:28 Oxygen Delivery Method Room Air Weight: 139 lb 12.369 oz Body Mass Index (BMI) 25.7 Intake & Output: Intake and Output for Last 24 Hours 03/31/25 04/01/25 04/02/25 23:59 23:59 23:59 Intake Total 0 / 0 4784.17 / 4784.17 3300.0 / 3300.0 Output Total 650 / 650 Balance 0 / 0 4134.17 / 4134.17 3300.0 / 3300.0 Lab / Micro Data 04/02/25 03:36 04/02/25 03:36 Labs: Laboratory Results - last 24 hr 04/01/25 05:49: ESR 1, C-React Prot Ext Range < 3.00, CA 19-9 Antigen 12 04/02/25 03:36: WBC 5.2, RBC 3.69 L, Hgb 10.7 L, Hct 31.4 L, MCV 85.1, MCH 29.0, MCHC 34.1, RDW Std Deviation 41.1, RDW Coeff of Eulalio 13.2, Plt Count 141 L, MPV 9.5, Immature Gran % (Auto) 0.200, Neut % (Auto) 58.1, Lymph % (Auto) 32.2, [place] % (Auto) 9.1, Eos % (Auto) 0.2, Baso % (Auto) 0.2, Absolute Neuts (auto) 3.0, Absolute Lymphs (auto) 1.67, Nucleated RBC % 0, Sodium 135, Potassium 3.5, Chloride 103, Carbon Dioxide 24.9, Anion Gap 7, BUN 15, Creatinine 0.53 L, Estim Creat Clear Calc 49.30 L, Est GFR (MDRD) Non-Af 96, BUN/Creatinine Ratio 27.4 H, Glucose 106 H, Calcium 7.9, Total Bilirubin 0.50, Direct Bilirubin 0.21, AST 29, ALT 14, Alkaline Phosphatase 47, Total Protein 5.4 L, Albumin 3.3 L, Globulin 2.1 L, Lipase 1035 H Physical Exam Narrative Seen and examined. Patient had ERCP 03/31 and stenting. Lipase improved to 1000. Complain of severe upper abdominal pain 1-2/10 in intensity. Slightly better. Physical exam General: Alert, Oriented x3, Cooperative HEENT: Atraumatic, PERRLA, EOMI, Normocephalic. Oral: No Gingival or Mucosal Lesions/ Ulcerations Neck: Supple, No JVD, Negative Carotid Bruits Chest wall/Lungs: Air entry diminished in bilateral lung bases. No crepitation/rhonchi Cardiovascular: Regular rate and rhythm, Normal S1,S2, No M/G/R Abdomen: Bowel Sounds sluggish,, Soft, mild tenderness over epigastric region. No voluntary guarding. : No dysuria. No renal angle tenderness. No suprapubic tenderness. Extremities: No edema, Capillary Refill Less than 3 Seconds Skin: No rashes, No breakdown Musculoskeletal: No Tenderness to Palpation of Joints or Extremities Neurological: Cranial nerves II-XII grossly intact, DTR 2+/4. No acute focal neurological deficit. Psych/Mental Status: Flat affect Assessment & Plan Assessment/Plan (1) Acute pancreatitis: PLAN: Plan The patient is a 75 y/o F was admitted with nausea, vomiting, severe sharp stabbing abdominal pain at her ERCP for stent placed in CBD on 03/31/2024 #1. Acute pancreatitis probably secondary to ERCP/stent placement: Patient is being admitted to the floor. CT abdomen pelvis reviewed and shows peripancreatic infiltrates, CBD stent in good position, prominent main pancreatic duct, pneumobilia secondary to sphincterotomy and diffuse thickening of stomach and duodenum. Continue NPO. IV fluid resuscitation and pain control. Lipase more than 3000. GI consulted. Serum transaminases, ALP, total bilirubin normal range. Hematocrit 39.7, calcium 8.9 and BUN 18 in normal range. Does not meet criteria for severe pancreatitis. 04/02: Labs reviewed. Hematocrit 31.4%. BUN/creatinine 15/0.53 normal. Started on clear liquid in the morning today advance to full liquid. Abdominal pain is better. Lipase is improved. CA 19-9 is normal. #2. Elevated BP without hypertensive diagnosis: BP elevated in the ED, possibly pain related/reactive from acute pancreatitis. Today it is better 133/50 #3. MASLD: RUQ ultrasound with elastography 09/06/24 with hepatic measurement 17 cm with fatty infiltration, stiffness measuring at that time 6.8 kPa, patient follows Dr. Ambrocio #4. 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 #6. GERD: Continue IV PPI. #7. DVT prophylaxis: SCDs, enoxaparin ordered Laboratory Results 04/01/25 05:49: CA 19-9 Antigen 12 04/02/25 03:36: WBC 5.2, RBC 3.69 L, Hgb 10.7 L, Hct 31.4 L, MCV 85.1, MCH 29.0, MCHC 34.1, RDW Std Deviation 41.1, RDW Coeff of Eulalio 13.2, Plt Count 141 L, MPV 9.5, Immature Gran % (Auto) 0.200, Neut % (Auto) 58.1, Lymph % (Auto) 32.2, [place] % (Auto) 9.1, Eos % (Auto) 0.2, Baso % (Auto) 0.2, Absolute Neuts (auto) 3.0, Absolute Lymphs (auto) 1.67, Nucleated RBC % 0, Sodium 135, Potassium 3.5, Chloride 103, Carbon Dioxide 24.9, Anion Gap 7, BUN 15, Creatinine 0.53 L, Estim Creat Clear Calc 49.30 L, Est GFR (MDRD) Non-Af 96, BUN/Creatinine Ratio 27.4 H, Glucose 106 H, Calcium 7.9, Total Bilirubin 0.50, Direct Bilirubin 0.21, AST 29, ALT 14, Alkaline Phosphatase 47, Total Protein 5.4 L, Albumin 3.3 L, Globulin 2.1 L, Lipase 1035 H Clinical Impression(s) from Imaging Studies Abdomen/Pelvis CT 04/01/25 23:55 IMPRESSION: Mild peripancreatic inflammatory fat stranding suggestive of acute pancreatitis. Mildly prominent pancreatic duct. Common bile duct stent is noted in good position. Mild biliary ductal dilatation. Diffuse thickening of the stomach and the duodenum, possibly reactive or secondary to gastro duodenitis without perforation.. Calcified atheromatous plaques of the aorta and iliac arteries. Small sliding hiatal hernia. Contrast is noted in the gallbladder, benign finding from prior intervention. Pneumobilia is noted, benign finding secondary to prior sphincterotomy and the presence of common bile duct stent. Mild bilateral basilar atelectatic pulmonary changes. Mild diffuse spondylosis. Grade 1 anterolisthesis of L4 on L5. Moderate amount of fecal residue in the large bowels. Chronic bone changes of Paget disease. Reading [facility] Charges/Coding Visit Charges Inpatient E&M: 37488 Subs Hosp L2
[2025-04-02 15:53] VITALS: BP 131/58; PULSE 55; RESP 16; TEMP 36.8; O2SAT 99
[2025-04-02] MEDS: Lactated Ringers 1,000 ML 150 ML IV (19:39)
[2025-04-02 21:01] VITALS: BP 131/67; PULSE 54; RESP 16; TEMP 36.7; O2SAT 99
[2025-04-02] MEDS: Lactated Ringers 1,000 ML 200 ML IV (21:03)
[2025-04-02] MEDS: MELATONIN 3 MG TABLET PO (21:10)
[2025-04-03] MEDS: Lactated Ringers 1,000 ML 200 ML IV ×3 (01:13→10:05)
[2025-04-03 03:27] VITALS: BP 117/70; PULSE 54; RESP 18; TEMP 36.8; O2SAT 95
[2025-04-03 05:36] VITALS: BMI 26.0
[2025-04-03 07:14] LABS: Hematocrit 30.1 % (37-47); Hemoglobin 10.1 g/dL (12.0-15.0); Immature Granulocytes Count 0.010 X10^3/uL (0.0-0.0); Mean Corp Hgb Conc 33.6 g/dL (32-36); Mean Corpuscular Volume 86.0 fL (81-99); Mean Platelet Vol. 9.9 fl (6.2-12.0); NRBC Flagged by Analyzer 0 % (0-5); Platelet Count 117 K/mm3 (150-450); RBC Distribution Width CV 13.2 % (11.6-14.6); RBC Distribution Width SD 41.0 fl (35.1-43.9); Red Blood Count 3.50 M/mm3 (4.2-5.4); White Blood Count 4.6 K/mm3 (4.4-11.0)
[2025-04-03 07:52] LABS: AST(SGOT) 27 U/L (<=31); Alanine Aminotransfer ALT/SGPT 12 U/L (<=34); Albumin, Serum 3.0 g/dL (3.4-4.8); Alkaline Phosphatase 46 U/L (35-104); Anion Gap 12 (5-15); BUN 10 mg/dL (4-19); BUN/Creat Ratio 20.7 RATIO (10-20); Bilirubin, Direct 0.24 mg/dL (0.00-0.30); Calcium,Total 7.8 mg/dL (7.6-11.0); Carbon Dioxide 21.7 mmol/L (21.0-32.0); Chloride 104 mmol/L (98-108); Estimated Creatinine Clearance 51.37 ml/min (50-250); Globulin 2.2 g/dL (2.2-4.2); Glucose 70 mg/dL (70-99); Potassium 3.2 mmol/L (3.3-5.1)
[2025-04-03 08:36] VITALS: O2SAT 93
[2025-04-03 08:52] VITALS: BP 115/53; PULSE 54; RESP 18; TEMP 36.4; O2SAT 98
[2025-04-03] MEDS: Budesonide 3 MG CAPSULE.EC 6 MG PO (08:59)
[2025-04-03] MEDS: Pantoprazole Sodium 40 MG in 0.9% Normal Saline (100mL MB+) 100 ML 330 MG IV (10:04)
--- NOTE | 2025-04-03 10:37 | DCINST_ITS ---
Discharge Instructions DC O2, CPAP, BIPAP needs Home O2 Discharge instructions: No Dressing / Incision Discharge Activity: Return to Normal Activity Weight Bearing Status: Weight bearing as tolerated Dressing / Incision Call your doctor if you observe: Fever of 101 or Higher, Coldness, Increased Pain, Numbness or Tingling, Change in Color, Inability to urinate, Inability to have a bowel movement, Shortness of breath, Dizziness, Fainting spells, Swelling in the ankles, Chest pain, Prolonged hiccupping, Increased palpitations (irregular heartbeat) and Calf discomfort Follow Up Care When: IN 2 WEEKS Test Results: Test results from this visit will be discussed in further detail at your follow- up appointment, if applicable. Discharge Plan Admission Admit Date/Time: 04/01/25 02:04 Primary Reason for Your Visit: Acute pancreatitis Attending Provider: Lionel Lees Primary Care Provider: Radha Rodas Consulting Providers: Lionel Lees; Alejandro Roy; Christine Ngo; Kaylen Hoyos; Azul Mena; Tracey Gomez Discharge Orders/Prescriptions Prescriptions: Continued polyethylene glycol 3350 [Miralax] 17 gram/dose powder 4 g PO QDAY PRN (Reason: constipation) budesonide 3 mg capsule,delayed,extend.release 6 mg PO QDAY Qty: 60 1RF Referrals / Follow Up: Radha Rodas DO [Primary Care Provider, Family Practice] Disposition Disposition (needs filled in before D/C Order can be placed): Home, Self Care
--- NOTE | 2025-04-03 11:32 | PN_ITS ---
Progress Note The patient is a 75-year-old female admitted for acute pancreatitis, currently on hospital day . Her abdominal pain is slightly better. She reports persistent nausea, intermittent cramping, and anorexia. She has been persistently afebrile. She is tolerating clear liquids but not much else. Ensure Clear was introduced, and she is trying to eat as much as possible. Physical Exam Const alert, oriented x3, no apparent distress and healthy appearing General Appearance: cooperative GI normal to inspection, nondistended, normoactive bowel sounds, soft to palpation, non-tender and non-distended Percussion: normal to percussion Rectal Exam: deferred Assessment & Plan Assessment/Plan (1) Acute pancreatitis: (2) Abdominal pain, acute: (3) Choledochocyst: PLAN: Assessment The patient is a 75-year-old female with resolving acute pancreatitis. She has shown clinical improvement with a reduction in abdominal pain and a downward trend in lipase . Her hematocrit has decreased following volume resuscitation, which is an expected physiological response to hemodilution, but the continued decrease warrants monitoring for other potential causes such as ongoing blood loss, although there is no explicit mention of this in the subjective data . The normal inflammatory markers (ESR and CRP) are atypical for acute pancreatitis but do not negate the diagnosis confirmed by other criteria (e.g., elevated lipase, abdominal pain). Her persistent nausea, cramping, and anorexia indicate that the inflammatory process has not completely resolved, and she is not yet tolerating a full diet. Plan * Monitoring:?Continue to monitor vital signs, intake/output, abdominal pain, and laboratory values (CBC with differential, lipase, CMP) regularly. CA 19-9 is pending. * Hydration:?Continue IV fluid resuscitation as indicated by hydration status. * Nutrition: * Continue current diet (clear liquids, Ensure Clear) and advance diet as tolerated. * Consult with a dietitian for nutritional assessment and recommendations for advancing diet appropriately once symptoms subside. * Symptom Management:?Continue antiemetics as needed for nausea. Visit Charges Inpatient E&M: 71534 [facility] Hosp L3
--- NOTE | 2025-04-03 12:43 | DS.PCM_ITS ---
Providers Date of Admission: 04/01/25 Primary Care Physician: Dr. Radha Rodas, Consultations 04/01/25 04:22 Consult: Gastroenterology Routine Consulting Provider: K[facility] Reason for Consult: Acute pancreatitis s/p ERCP/stent EMERGENT Consult: No MD Notified: Yes Date Notified: 04/01/25 Time Notified: 02:06 Method of Notification: Text Reason For Visit: ACUTE PANCREATITIS S/P ERCP/STENT Diagnosis Discharge Diagnosis (1) Acute pancreatitis: Status: Acute Code(s): K85.90 - Acute pancreatitis without necrosis or infection, unspecified (2) Abdominal pain, acute: Status: Acute Code(s): R10.9 - Unspecified abdominal pain (3) Choledochocyst: Status: Acute Code(s): 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 Acute pancreatitis probably secondary to ERCP/stent placement: Patient is being admitted to the floor. CT abdomen pelvis reviewed and shows peripancreatic infiltrates, CBD stent in good position, prominent main pancreatic duct, pneumobilia secondary to sphincterotomy and diffuse thickening of stomach and duodenum. Continue NPO. IV fluid resuscitation and pain control. Lipase more than 3000. GI consulted. Serum transaminases, ALP, total bilirubin normal range. Hematocrit 39.7, calcium 8.9 and BUN 18 in normal range. Does not meet criteria for severe pancreatitis. 04/02: Labs reviewed. Hematocrit 31.4%. BUN/creatinine 15/0.53 normal. Started on clear liquid in the morning today advance to full liquid. Abdominal pain is better. Lipase is improved. CA 19-9 is normal. 04/03: Mild hypokalemia, potassium is replaced. Transaminases normal. On 04/02: Albumin 2001, lipase 1035 yesterday #2. Elevated BP without hypertensive diagnosis: BP elevated in the ED, possibly pain related/reactive from acute pancreatitis. Today it is better 133/50 112: Blood pressure is normal. #3. MASLD: RUQ ultrasound with elastography 09/06/24 with hepatic measurement 17 cm with fatty infiltration, stiffness measuring at that time 6.8 kPa, patient follows Dr. Ambrocio #4. 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 #6. GERD: Continue IV PPI. #7. DVT prophylaxis: SCDs, enoxaparin ordered Discharge medication reconciliation done. Discharge follow-up instructions completed. Discharge process discussed with the patient and all questions were answered to patient's satisfaction. Follow with PCP in 1 to 2 weeks Total time spent, exact 35 minutes on discharge meds reconciliation, examination, coordination of care with nurses and ancillary staff, review of imaging and blood test and discussion with the patient on follow-up instructions. Laboratory Results 04/01/25 05:49: CA 19-9 Antigen 12 04/02/25 03:36: WBC 5.2, RBC 3.69 L, Hgb 10.7 L, Hct 31.4 L, MCV 85.1, MCH 29.0, MCHC 34.1, RDW Std Deviation 41.1, RDW Coeff of Eulalio 13.2, Plt Count 141 L, MPV 9.5, Immature Gran % (Auto) 0.200, Neut % (Auto) 58.1, Lymph % (Auto) 32.2, [place] % (Auto) 9.1, Eos % (Auto) 0.2, Baso % (Auto) 0.2, Absolute Neuts (auto) 3.0, Absolute Lymphs (auto) 1.67, Nucleated RBC % 0, Sodium 135, Potassium 3.5, Chloride 103, Carbon Dioxide 24.9, Anion Gap 7, BUN 15, Creatinine 0.53 L, Estim Creat Clear Calc 49.30 L, Est GFR (MDRD) Non-Af 96, BUN/Creatinine Ratio 27.4 H, Glucose 106 H, Calcium 7.9, Total Bilirubin 0.50, Direct Bilirubin 0.21, AST 29, ALT 14, Alkaline Phosphatase 47, Total Protein 5.4 L, Albumin 3.3 L, Globulin 2.1 L, Lipase 1035 H Clinical Impression(s) from Imaging Studies Abdomen/Pelvis CT 04/01/25 23:55 IMPRESSION: Mild peripancreatic inflammatory fat stranding suggestive of acute pancreatitis. Mildly prominent pancreatic duct. Common bile duct stent is noted in good position. Mild biliary ductal dilatation. Diffuse thickening of the stomach and the duodenum, possibly reactive or secondary to gastro duodenitis without perforation.. Calcified atheromatous plaques of the aorta and iliac arteries. Small sliding hiatal hernia. Contrast is noted in the gallbladder, benign finding from prior intervention. Pneumobilia is noted, benign finding secondary to prior sphincterotomy and the presence of common bile duct stent. Mild bilateral basilar atelectatic pulmonary changes. Mild diffuse spondylosis. Grade 1 anterolisthesis of L4 on L5. Moderate amount of fecal residue in the large bowels. Chronic bone changes of Paget disease. [facility] Medications at Discharge Home Medications polyethylene glycol 3350 17 gram/dose oral powder (Miralax) 4 g PO QDAY PRN constipation 02/10/25 budesonide 3 mg capsule,delayed,extended release 6 mg (2 x 3 mg) PO QDAY #60 ea 02/16/25 Physical Exam Narrative Seen and examined. Patient had ERCP 03/31 and stenting. Abdominal pain has almost resolved. Patient tolerated liquid diet. Advance to soft texture transitional diet. Amylase and lipase have improved. Physical exam General: Alert, Oriented x3, Cooperative HEENT: Atraumatic, PERRLA, EOMI, Normocephalic. Oral: No Gingival or Mucosal Lesions/ Ulcerations Neck: Supple, No JVD, Negative Carotid Bruits Chest wall/Lungs: Air entry diminished in bilateral lung bases. No crepitation/rhonchi Cardiovascular: Regular rate and rhythm, Normal S1,S2, No M/G/R Abdomen: Bowel Sounds sluggish,, Soft, minimal tenderness over epigastric region. No voluntary guarding. : No dysuria. No renal angle tenderness. No suprapubic tenderness. Extremities: No edema, Capillary Refill Less than 3 Seconds Skin: No rashes, No breakdown Musculoskeletal: No Tenderness to Palpation of Joints or Extremities Neurological: Cranial nerves II-XII grossly intact, DTR 2+/4. No acute focal neurological deficit. Psych/Mental Status: Flat affect Weight / BMI Weight Weight: 141 lb 11.2 oz Body Mass Index (BMI) 26.0 ABG / Lab / Microbiology Data 04/03/25 06:21 04/03/25 06:21 Laboratory: Laboratory Results - last 24 hr 04/03/25 06:21: WBC 4.6, RBC 3.50 L, Hgb 10.1 L, Hct 30.1 L, MCV 86.0, MCH 28.9, MCHC 33.6, RDW Std Deviation 41.0, RDW Coeff of Eulalio 13.2, Plt Count 117 L, MPV 9.9, Immature Gran % (Auto) 0.200, Neut % (Auto) 53.8, Lymph % (Auto) 34.2, [place] % (Auto) 11.0 H, Eos % (Auto) 0.4, Baso % (Auto) 0.4, Absolute Neuts (auto) 2.5, Absolute Lymphs (auto) 1.58, Nucleated RBC % 0, Sodium 138, Potassium 3.2 L, Chloride 104, Carbon Dioxide 21.7, Anion Gap 12, BUN 10, Creatinine 0.49 L, Estim Creat Clear Calc 51.37, Est GFR (MDRD) Non-Af 98, BUN/Creatinine Ratio 20.7 H, Glucose 70, Calcium 7.8, Total Bilirubin 0.58, Direct Bilirubin 0.24, AST 27, ALT 12, Alkaline Phosphatase 46, Total Protein 5.2 L, Albumin 3.0 L, Globulin 2.2 D/C Instructions Weight Bearing Status: Weight bearing as tolerated Call your doctor if you observe: Fever of 101 or Higher, Coldness, Increased Pain, Numbness or Tingling, Change in Color, Inability to urinate, Inability to have a bowel movement, Shortness of breath, Dizziness, Fainting spells, Swelling in the ankles, Chest pain, Prolonged hiccupping, Increased palpitations (irregular heartbeat) and Calf discomfort DC O2, CPAP, BIPAP Needs Home O2 Discharge instructions: No When: IN 2 WEEKS Meaningful Use Info Meaningful Use Meaningful Use Diagnoses (Choose all that apply): None applicable Discharge Plan Admission Admit Date/Time: 04/01/25 02:04 Primary Reason for Your Visit: Acute pancreatitis Attending Provider: Lionel Lees Primary Care Provider: Radha Rodas Consulting Providers: Lionel Lees; Kirill,Alejandro; Christine Ngo; Kaylen Hoyos; Azul Mena; Tracye Gomez Discharge Orders/Prescriptions Prescriptions: Continued polyethylene glycol 3350 [Miralax] 17 gram/dose powder 4 g PO QDAY PRN (Reason: constipation) budesonide 3 mg capsule,delayed,extend.release 6 mg PO QDAY Qty: 60 1RF Referrals / Follow Up: Radha Rodas DO [Primary Care Provider, Family Practice] Azul Mena PA [Med Staff - [facility] Practice Prof, Gastroenterology] - Within 1 Month Disposition Disposition (needs filled in before D/C Order can be placed): Home, Self Care
[2025-04-03] MEDS: Potassium Chloride Oral Tablet 20 MEQ 40 MEQ PO (12:54)
[2025-04-03] MEDS: 0.9% Saline Lock 10 ML Syringe IV (12:55)
== END 2025-04-03 13:30 | disposition home or self-care (01) | DRG 393 ==
LOC: ED 04-01 01:10 → MS3 04-01 04:09
PROVIDERS: Internal Medicine Gastroenterology; Admitting Provider Family Medicine; Emergency Provider Emergency Medicine; PCP Family Medicine; Visit Provider Internal Medicine
DX: K91.89 Other postprocedural complications and disorders of digestive system (principal); K85.90 Acute pancreatitis without necrosis or infection, unspecified; Q44.4 Choledochal cyst; I70.0 Atherosclerosis of aorta; D89.2 Hypergammaglobulinemia, unspecified; K29.80 Duodenitis without bleeding; K21.9 Gastro-esophageal reflux disease without esophagitis; N18.2 Chronic kidney disease, stage 2 (mild); M43.16 Spondylolisthesis, lumbar region; K44.9 Diaphragmatic hernia without obstruction or gangrene; K83.8 Other specified diseases of biliary tract; E87.6 Hypokalemia; M47.9 Spondylosis, unspecified; K80.50 Calculus of bile duct without cholangitis or cholecystitis without obstruction; R73.9 Hyperglycemia, unspecified; R03.0 Elevated blood-pressure reading, without diagnosis of hypertension; Z90.49 Acquired absence of other specified parts of digestive tract; R10.9 Unspecified abdominal pain; Z79.899 Other long term (current) drug therapy; R74.01 Elevation of levels of liver transaminase levels
CPT/HCPCS: 36415; 74177; 74330; 76000; 80048; 80053; 80076; 82150; 83690; 85025; 85652; 86140; 86301; 88108; 88305; 88313; 93005; 94668; 97802; 99285; C2625; Q9967; A4216; J2405

== ENCOUNTER → 2025-04-06 | Outpatient (CLI) | payer MEDICARE, SELFPAY ==
--- NOTE | 2025-04-06 07:37 | BI_ITS ---
EXAM: SCRN MAMM (CAD)W/ANIL BILAT DATE: 04/06/2025 CLINICAL HISTORY: F, Age 75 y/o , SCREENING Aunt with breast cancer. History of remote left stereotactic breast biopsy. TECHNIQUE: Procedure Code: [id number] Modality: MG Procedure: SCRN MAMM (CAD)W/ANIL BILAT COMPARISON: Prior exam(s) dated 02/20/2024.. FINDINGS: TISSUE DENSITY: The breasts are heterogeneously dense, which may obscure small masses. Bilateral Breast Mammographic Findings: No significant masses, calcifications or other abnormalities are identified. Once again, a tissue clip marker is seen in the anterior lateral aspect of the left breast. No suspicious masses, areas of developing architectural distortion, or suspicious calcifications. There has been no significant interval change. BI/SCRN MAMM (CAD)W/ANIL BILAT IMPRESSION: Stable bilateral screening mammogram. OVERALL FINAL ASSESSMENT BI-RADS 2: BENIGN RECOMMENDATION: Routine annual follow-up in 1 Year Additional Recommendation none A letter with findings and recommendations will be mailed to the patient. Reading Location: [id number]
--- OUTSIDE RECORDS SUMMARY | 2025-04-06 07:39 | XMS RPT_ITS | CCD ---
Author Organization [facility] Care Team Providers Care Truss Builder Name Role Phone Dr. Radha Rodas Primary [...] Dr. Sun Rodas DOa Primary Care Provider [phone] Adrianna DO, Dr. Garcia Referring Provider Friend DO, Dr. Allen Referring Provider Adrianna DO, Dr. Garcia Primary Care Provider [phone] Adrianna DO, Dr. Garcia Referring Provider [phone] Friend DO, Dr. Allen Attending Provider Friend DO, Dr. Allen Other Provider [phone] Danielle CORADO, Dr. Dsouza Attending Provider Danielle CORADO, Dr. Dsouza Referring Provider [phone] Adrianna DO, Dr. Garcia Primary Care Provider [phone] Friend DO, Dr. Allen Referring Provider Adrianna DO, Dr. Garcia Primary Care Provider Danielle CORADO, Dr. Dsouza Attending Provider [phone] Danielle CORADO, Dr. Dsouza Referring Provider Malys, Radha Primary Care Unavailable WhiteTracey Attending Unavailable Nabeel, Lionel Consulting Unavailable Malys, Radha Primary Care Unavailable Friend, Alejandro Attending Unavailable Tracey Gomez L Admitting Unavailable Friend, Alejandro Consulting Unavailable Christine Ngo Consulting Unavailable Romain, Kaylen Consulting Unavailable Trina, Azul Consulting Unavailable Tracey Gomez L Consulting Unavailable Nabeel, Lionel Attending Unavailable Meet Santos Attending Unavailable Meet Santos Referring Unavailable Malys, Radha Primary Care Unavailable Malys, Radha Primary Care Unavailable Georges, Loretta Referring Unavailable Georges, Loretta Attending Unavailable Georges, Loretta Consulting Unavailable Friend, Alejandro Referring Unavailable Friend, Alejandro Attending Unavailable Atanasov, Azul Attending Unavailable Atanasov, Azul Referring Unavailable Malys, Radha Primary Care Unavailable Friend, Alejandro Attending Unavailable Friend, Alejandro Referring Unavailable Malys, Radha Primary Care Unavailable Malys, Radha Primary Care Unavailable Malys, Radha Referring Unavailable Friend, Alejandro Attending Unavailable Malys, Radha Primary Care Unavailable Malys, Radha Referring Unavailable PrahMeet Attending Unavailable Friend, Alejandro Attending Unavailable Malys, Radha Referring Unavailable Malys, Radha Primary Care Unavailable Prah, Meet Attending Unavailable Friend, Alejandro Referring Unavailable Prah, Meet Attending Unavailable Prah, Meet Referring Unavailable Malys, Radha Primary Care Unavailable Prah, Meet Attending Unavailable Prah, Meet Referring Unavailable Malys, Radha Primary Care Unavailable Malys, Radha Attending Unavailable Malys, Radha Referring Unavailable Malys, Radha Primary Care Unavailable Friend, Alejandro Attending Unavailable Friend, Alejandro Referring Unavailable Malys, Radha Primary Care Unavailable Nabeel, Lionel Attending Unavailable Nabeel, Lionel Consulting Unavailable White, Tracey L Admitting Unavailable Malys, Radha Primary Care Unavailable Friend, Alejandro Consulting Unavailable Christine Ngo Consulting Unavailable Kaylen Hoyos Consulting Unavailable Azul Mena Consulting Unavailable White, Traecy L Consulting Unavailable Malys, Radha Referring Unavailable Malys, Radha Primary Care Unavailable Friend, Alejandro Attending Unavailable Malys, Radha Referring Unavailable Malys, Radha Primary Care Unavailable Friend, Alejandro Attending Unavailable Friend, Alejandro Attending Unavailable Malys, Radha Referring Unavailable Malys, Radha Primary Care Unavailable Prah, Meet Attending Unavailable Malys, Radha Primary Care Unavailable Malys, Radha Referring Unavailable Friend, Alejandro Consulting Unavailable Malys, Radha Primary Care Unavailable Malys, Radha Referring Unavailable Friend, Alejandro Attending Unavailable Friend, Alejandro Consulting Unavailable Malys, Radha Primary Care Unavailable Malys, Radha Referring Unavailable Friend, Alejandro Attending Unavailable Allergies Allergy Classification Reported Allergen(s) Allergy Type Date of Onset Reaction(s) Facility (15 sources) Penicillins; Translations: [Penicillins] Allergy to substance 04-13-2021 [facility] Medications Current Medications Medication Drug Class(es) Dates Sig (Normalized) Sig (Original) polyethylene glycol 3350 67248 mg powder for oral solution (8 sources) Osmotic Laxative Start: 02-10-2025 Polyethylene Glycol 3350 (Miralax) 17 gram/dose powder Active 4 g PO daily February 10, 2025 12:00am Start: 07-05-2024 End: 11-15-2024 Polyethylene Glycol 3350 (Mi ralax) 17 gram/dose powder Discontinued 4 g PO daily as needed for constipation July 05, 2024 1:00am November 15, 2024 1:11pm Irgbfrm-Xbod-Stptv-Oreg-Capr yl (6 sources) Start: 01-28-2022 Czkaazo-Aatr-Jaqeh-Oreg-Capr yl Active CAP PO January 27, 2022 11:00pm Start: 01-28-2022 Rofnlky-Sifj-J ipqg-Ilsj-Vjntou Active CAP PO January 28, 2022 12:00am Completed/Discontinued Medications Medication Drug Class(es) Dates Sig (Normalized) Sig (Original) acetaminophen 325 mg / oxyCODONE hydrochloride 5 mg oral tablet (20 sources) Opioid Agonist Start: 10-25-2013 End: 08-15-2017 Oxycodone-Acetamino phen 1 TABLET tablet Discontinued 1 {tbl} PO EVERY 4 HOURS NEEDED as needed for Pain 30 October 26, 2013 11:43am August 15, 2017 [...] tablet Discontinued 20 mg PO daily 30 1 October 18, 2024 12:00am November 15, 2024 1:10pm ibuprofen 200 mg oral capsule (14 sources) Nonsteroidal Anti-inflammatory Drug Start: 08-15-2017 End: 08-18-2017 Ibuprofen 200 mg capsule Discontinued PO 0 August 15, 2017 12:00am August 18, 2017 10:50am Start: 08-15-2017 End: 08-18-2017 Ibuprofen Discontinued PO [facility] 2017 11:00pm August 18, 2017 9:50am L.Acidoph,Saliva-B.Bif-S.The [...] NMA PO daily August 26, 2024 12:00am Zv-Xj-Zwnc-Fa-Ca Carb-Vit K (Women's Multivitamin) 18 mg iron-400 mcg-500 mg tablet (14 sources) Start: 03-25-2019 End: 11-15-2024 Jx-Zt-Idyt-Fa-Ca Carb-Vit K (Women's Multivitamin) 18 mg iron-400 mcg-500 mg tablet Discontinued 1 {tbl} PO DAILY March 25, 2019 12:00am November 15, 2024 1:11pm Start: 03-25-2019 Pz-Pe-Kbca-Fa- Ca Carb-Vit K (Women's Multivitamin) 18 mg iron-400 mcg-500 mg tablet Active 1 {tbl} PO DAILY March 25, 2019 12:00am Start: 03-25-2019 take 1 tablet by zulma th once daily Mc-Vp-Hahz-Fa-Ca Carb-Vit K (Women's Multivitamin) 18 mg iron-400 mcg-500 mg tablet Active 1 TABLET PO DAILY March 24, 2019 11:00pm Start: 03-25-2019 take 1 tablet by zulma th once daily Uw-Bs-Cmzi-Fa-Ca Carb-Vit K (Women's Multivitamin) 18 mg iron-400 [...] not open, crush, dissolve , or chew [place]-3 Fatty Acids 1,000 mg capsule (7 sources) Start: 08-26-2024 End: 11-15-2024 take 1 capsule by mouth once daily [place]-3 Fatty Acids 1,000 mg capsule Discontinued 1000 mg PO daily August 26, 2024 12:00am November 15, 2024 1:11pm Start: 08-26-2024 take 1 capsule by mouth once d aily [place]-3 Fatty Acids 1,000 mg capsule Active 1000 [...] tablet Discontinued 20 mg PO daily 30 30 October 18, 2024 12:00am November 15, 2024 1:11pm sulfamethoxazole 800 mg / trimethoprim 160 mg oral tablet (7 sources) Dihydrofolate Reductase Inhibitor Antibacterial, Sulfonamide Antimicrobial Start: 02-03-2024 End: 07-05-2024 Sulfamethoxazole-Tri methoprim 800-160 mg tablet Discontinued 1 {tbl} PO TWICE A DAY 10 February 03, 2024 12:00am July 05, 2024 10:36am Iydlejeg-Tvuf-Dehwn-O reg-Capry 100 mg-150 mg- 50 mg-150 mg capsule (7 sources) Start: 01-28-2022 End: 11-15-2024 Csnrebku-Ffpo-Dxrzn- Oreg-Capry 100 mg-150 mg- 50 mg-150 mg capsule Discontinued NMA PO January 28, 2022 12:00am November 15, 2024 1:11pm Start: 01-28-2022 Turmeric-Ging- Nplwu-Nsqy-Myuxn 100 mg-150 mg- 50 mg-150 mg capsule Active NMA PO January 28, 2022 12:00am Problems Active Problems Problem Classification Problem Date Documented Da te Episodic/Chronic Abdominal pain (10 sources) Abdominal pain; Translations: [Unspecified abdominal pain] Onset: 04-03-2025 11-17-2024 Episodic Biliary tract disease (1 source) Other specified diseases of biliary tract; Translations: [Other specified diseases of biliary tract] Onset: 12-07-2024 Chronic 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; 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) [...] mammogram for malignant neoplasm of breast] Onset: 04-04-2025 Episodic Other upper respiratory infections (14 sources) Acute upper respiratory infection; Translations: [Acute upper respiratory infection, unspecified] 03-05-2021 Episodic Pancreatic disorders (not diabetes) (2 sources) Acute pancreatitis without necrosis or infection, unspecified; Translations: [Acute pancreatitis without necrosis or infection, unspecified] Onset: 04-03-2025 Episodic Residual codes; unclassified (14 sources) Chill; [...] Test Name Value Interpretation Reference Range Facility Liver Profileon 04-04-2025 ALB Normal 3.4-4.8 [facility] Comment on above: Result Comment: Canc elled via OM: Order cancelled - Patient discharged Performed By: #### L 3000.0800, L3130.0010, L100.9950, L501.6710, L500.4050, L100.0100, L3100.3425, L101.9900, L503.0106 #### [facility] [address] [place], [address] ALK PHOS Normal 35-104 [facility] Comment on above: Result Comment: Canc elled via OM: Order cancelled - Patient discharged Performed By: #### L 3000.0800, L3130.0010, L100.9950, L501.6710, L500.4050, L100.0100, L3100.3425, L101.9900, L503.0106 #### [facility] [address] [place], [place], [id number] (794) ALT Normal <=34 [facility] Comment on above: Result Comment: Canc elled via OM: Order cancelled - Patient discharged Performed By: #### L 3000.0800, L3130.0010, L100.9950, L501.6710, L500.4050, L100.0100, L3100.3425, L101.9900, L503.0106 #### [facility] [address] [place], [address] AST Normal <=31 [facility] Comment on above: Result Comment: Canc elled via OM: Order cancelled - Patient discharged Performed By: #### L 3000.0800, L3130.0010, L100.9950, L501.6710, L500.4050, L100.0100, L3100.3425, L101.9900, L503.0106 #### [facility] [address] [place], [address] D BILI Normal 0.00-0.30 [facility] Comment on above: Result Comment: Canc elled via OM: Order cancelled - Patient discharged Performed By: #### L 3000.0800, L3130.0010, L100.9950, L501.6710, L500.4050, L100.0100, L3100.3425, L101.9900, L503.0106 #### [facility] [address] [place], [address] T BILI Normal 0.00-1.30 [facility] Comment on above: Result Comment: Canc elled via OM: Order cancelled - Patient discharged Performed By: #### L 3000.0800, L3130.0010, L100.9950, L501.6710, L500.4050, L100.0100, L3100.3425, L101.9900, L503.0106 #### [facility] [address] [place], [address] T PROT Normal 5.9-8.4 [facility] Comment on above: Result Comment: Can elled via OM: Order cancelled - Patient discharged Performed By: #### L 3000.0800, L3130.0010, L100.9950, L501.6710, L500.4050, L100.0100, L3100.3425, L101.9900, L503.0106 #### [facility] [address] [place], [address] Basic Metabolic Profile (BMP )on 04-03-2025 BUN/CRE 20.7 RATIO High 10-20 [facility] Comment on above: Performed By: #### L 500.3400, L500.2500, L100.0100 ####[facility] [address] [place], [address] Calcium [Mass/Vol] 7.8 mg/dL Normal 7.6-11.0 [facility] Comment on above: Performed By: #### L 500.3400, L500.2500, L100.0100 ####[facility] [address] [place], [address] Chloride [Moles/Vol] 104 mmol/L Normal 98-108 [facility] Comment on above: Performed By: #### L 500.3400, L500.2500, L100.0100 ####[facility] [address] [place], [address] CO2 [Moles/Vol] 21.7 mmol/L Normal 21.0-32.0 [facility] Comment on above: Performed By: #### L 500.3400, L500.2500, L100.0100 ####[facility] [address] [place], [address] Creatinine [Mass/Vol] 0.49 mg/dL Low 0.70-1.20 [facility] Comment on above: Performed By: #### L 500.3400, L500.2500, L100.0100 ####[facility] [address] [place], [address] ECRCL 51.37 ml/min Normal 50-250 [facility] Comment on above: Performed By: #### L 500.3400, L500.2500, L100.0100 ####[facility] [address] [place], [address] GAP 12 Normal 5-15 [facility] Comment on above: Performed By: #### L 500.3400, L500.2500, L100.0100 ####[facility] [address] [place], [address] GFR/1.73 sq M.predicted among non-blacks MDRD (S/P/Bld) [Vol rate/Area] 98 mL/min/{1.73_m2} Normal >60 [facility] Comment on above: Result Comment: mL/m in/1.73m2 CKD-EPI Creatinine Equation (2020) Performed By: #### L 500.3400, L500.2500, L100.0100 ####[facility] [address] [place], [address] Glucose [Mass/Vol] 70 mg/dL Normal 70-99 [facility] Comment on above: Performed By: #### L 500.3400, L500.2500, L100.0100 ####[facility] [address] [place], [address] Potassium [Moles/Vol] 3.2 mmol/L Low 3.3-5.1 [facility] Comment on above: Result Comment: Hemo lysis present, Results??could be affected. ?? Performed By: #### L 500.3400, L500.2500, L100.0100 ####[facility] [address] [place], [address] Sodium [Moles/Vol] 138 mmol/L Normal 133-145 [facility] Comment on above: Performed By: #### L 500.3400, L500.2500, L100.0100 ####[facility] [address] [place], [address] Urea nitrogen [Mass/Vol] 10 mg/dL Normal 4-19 [facility] Comment on above: Performed By: #### L 500.3400, L500.2500, L100.0100 ####[facility] [address] [place], [address] CBC W/Diff, Automatedon 11-0 Absolute Lymph 1.58 X10 3/uL Normal 0.83-4.51 [facility] Comment on above: Performed By: #### L 500.3400, L500.2500, L100.0100 ####[facility] [address] [place], [address] Absolute Neut 2.5 X10 3/uL Normal 2.0-7.7 [facility] Comment on above: Performed By: #### L 500.3400, L500.2500, L100.0100 ####[facility] [address] [place], [address] Basophils/100 WBC (Bld) 0.4 % Normal 0-1 [facility] Comment on above: Performed By: #### L 500.3400, L500.2500, L100.0100 ####[facility] [address] [place], [address] Eosinophils/100 WBC (Bld) 0.4 % Normal 0-5 [facility] Comment on above: Performed By: #### L 500.3400, L500.2500, L100.0100 ####[facility] [address] [place], [address] Erythrocyte distribution width (RBC) [Ratio] 13.2 % Normal 11.6-14.6 [facility] Comment on above: Performed By: #### L 500.3400, L500.2500, L100.0100 ####[facility] [address] [place], [address] Hematocrit (Bld) [Volume fraction] 30.1 % Low 37-47 [facility] Comment on above: Performed By: #### L 500.3400, L500.2500, L100.0100 ####[facility] [address] [place], [address] Hemoglobin (Bld) [Mass/Vol] 10.1 g/dL Low 12.0-15.0 [facility] Comment on above: Performed By: #### L 500.3400, L500.2500, L100.0100 ####[facility] [address] [place], [address] IG% 0.200 Normal 0.0-0.9 [facility] Comment on above: Result Comment: IG% - Immature Granulocytes (promyelocytes, myelocytes and metamyelocytes) > 1% indicates that a LEFT SHIFT is Present. Performed By: #### L 500.3400, L500.2500, L100.0100 ####[facility] [address] [place], [address] Lymphocytes/100 WBC (Bld) 34.2 % Normal 19-41 [facility] Comment on above: Performed By: #### L 500.3400, L500.2500, L100.0100 ####[facility] [address] [place], [address] MCH (RBC) [Entitic mass] 28.9 pg Normal 27.0-32.0 [facility] Comment on above: Performed By: #### L 500.3400, L500.2500, L100.0100 ####[facility] [address] [place], [address] MCHC (RBC) [Mass/Vol] 33.6 g/dL Normal 32-36 [facility] Comment on above: Performed By: #### L 500.3400, L500.2500, L100.0100 ####[facility] [address] [place], [address] MCV (RBC) [Entitic vol] 86.0 fL Normal 81-99 [facility] Comment on above: Performed By: #### L 500.3400, L500.2500, L100.0100 ####[facility] [address] [place], [address] Monocytes/100 WBC (Bld) 11.0 % High 0-10 [facility] Comment on above: Performed By: #### L 500.3400, L500.2500, L100.0100 ####[facility] [address] [place], [address] Neutrophils/100 WBC (Bld) 53.8 % Normal 47-70 [facility] Comment on above: Performed By: #### L 500.3400, L500.2500, L100.0100 ####[facility] [address] [place], [address] Nucleated RBC (Bld) [#/Vol] 0 10*3/uL Normal 0-5 [facility] Comment on above: Performed By: #### L 500.3400, L500.2500, L100.0100 ####[facility] [address] [place], [address] Platelet mean volume (Bld) [Entitic vol] 9.9 fL Normal 6.2-12.0 [facility] Comment on above: Performed By: #### L 500.3400, L500.2500, L100.0100 ####[facility] [address] [place], [address] Platelets (Bld) [#/Vol] 117 10*3/uL Low 150-450 [facility] Comment on above: Performed By: #### L 500.3400, L500.2500, L100.0100 ####[facility] [address] [place], [address] RBC (Bld) [#/Vol] 3.50 10*6/uL Low 4.2-5.4 [facility] Comment on above: Performed By: #### L 500.3400, L500.2500, L100.0100 ####[facility] [address] [place], [address] RDW SD 41.0 fl Normal 35.1-43.9 [facility] Comment on above: Performed By: #### L 500.3400, L500.2500, L100.0100 ####[facility] [address] [place], [address] WBC (Bld) [#/Vol] 4.6 10*3/uL Normal 4.4-11.0 [facility] Comment on above: Performed By: #### L 500.3400, L500.2500, L100.0100 ####[facility] [address] [place], [address] Discharge Instructionon Discharge Instruction [facility] Medical Records Department [address] [place] [address] Instructions for Home/Discharge Instructions 04/03/25 [facility] MR#: [id number] Acct: [id number] Name: OLGA STAFFORD Rep #: [id number] : 1950 75 From: Lionel Lees MD PCP: Dr. Radha Rodas DO Status:ADM IN Discharge Instructions DC O2, CPAP, BIPAP needs Home O2 Discharge instructions: No Dressing / Incision Discharge Activity: Return to Normal Activity Weight Bearing Status: Weight bearing as tolerated Dressing / Incision Call your doctor if you observe: Fever of 101 or Higher, Coldness, Increased Pain, Numbness or Tingling, Change in Color, Inability to urinate, Inability to have a bowel movement, Shortness of breath, Dizziness, Fainting spells, Swelling in the ankles, Chest pain, Prolonged hiccupping, Increased palpitations (irregular heartbeat) and Calf discomfort Follow Up Care When: IN 2 WEEKS Test Results: Test results from this visit will be discussed in further detail at your follow-up appointment, if applicable. Discharge Plan Admission Admit Date/Time: 04/01/25 02:04 Primary Reason for Your Visit: Acute pancreatitis Attending Provider: Lionel Lees Primary Care Provider: Radha Rodas Consulting Providers: Lionel Lees; Alejandro Roy; Christine Ngo; Kaylen Hoyos; Azul Mena; Tracey Gomez Discharge Orders/Prescriptions Prescriptions: Continued polyethylene glycol 3350 [Miralax] 17 gram/dose powder 4 g PO QDAY PRN (Reason: constipation) budesonide 3 mg capsule,delayed,extend.re lease 6 mg PO QDAY Qty: 60 1RF Referrals / Follow Up: Radha Rodas DO [Primary Care Provider, Family Practice] Disposition Disposition (needs filled in before D/C Order can be placed): Home, Self Care 04/03/25 1243 Lionel Lees MD CC: [employer] Ngo; HE Hoyos; Dr. Tracey Gomez MD; Dr. Radha Rodas DO; Dr. Lionel Lees MD; VICKY Pereira; Alejandro Roy, Signed Normal [facility] Liver Profileon 04-03-2025 Albumin [Mass/Vol] 3.0 g/dL Low 3.4-4.8 [facility] Comment on above: Performed By: #### L 500.3400, L500.2500, L100.0100 ####[facility] [address] [place], [address] ALK PHOS 46 U/L Normal 35-104 [facility] Comment on above: Performed By: #### L 500.3400, L500.2500, L100.0100 ####[facility] [address] [place], [address] ALT [Catalytic activity/Vol] 12 U/L Normal <=34 [facility] Comment on above: Performed By: #### L 500.3400, L500.2500, L100.0100 ####[facility] [address] [place], [address] AST [Catalytic activity/Vol] 27 U/L Normal <=31 [facility] Comment on above: Result Comment: Hemo lysis present, Results??could be affected. ?? Performed By: #### L 500.3400, L500.2500, L100.0100 ####[facility] [address] [place], [address] Bilirubin [Mass/Vol] 0.58 mg/dL Normal 0.00-1.30 [facility] Comment on above: Performed By: #### L 500.3400, L500.2500, L100.0100 ####[facility] [address] [place], [address] Bilirubin.direct [Mass/Vol] 0.24 mg/dL Normal 0.00-0.30 [facility] Comment on above: Result Comment: Hemo lysis present, Results??could be affected. ?? Performed By: #### L 500.3400, L500.2500, L100.0100 ####[facility] [address] [place], [address] Globulin (S) [Mass/Vol] 2.2 g/dL Normal 2.2-4.2 [facility] Comment on above: Performed By: #### L 500.3400, L500.2500, L100.0100 ####[facility] [address] [place], [address] T PROT 5.2 g/dL Low 5.9-8.4 [facility] Comment on above: Performed By: #### L 500.3400, L500.2500, L100.0100 ####[facility] [address] [place], [address] Basic Metabolic Profile (BMP )on 04-02-2025 BUN/CRE 27.4 RATIO High 10-20 [facility] Comment on above: Performed By: #### L 500.2500, L500.3400, L501.2450 ####[facility] [address] [place], [address] Calcium [Mass/Vol] 7.9 mg/dL Normal 7.6-11.0 [facility] Comment on above: Performed By: #### L 500.2500, L500.3400, L501.2450 ####[facility] [address] [place], [address] Chloride [Moles/Vol] 103 mmol/L Normal 98-108 [facility] Comment on above: Performed By: #### L 500.2500, L500.3400, L501.2450 ####[facility] [address] [place], [address] CO2 [Moles/Vol] 24.9 mmol/L Normal 21.0-32.0 [facility] Comment on above: Performed By: #### L 500.2500, L500.3400, L501.2450 ####[facility] [address] [place], [address] Creatinine [Mass/Vol] 0.53 mg/dL Low 0.70-1.20 [facility] Comment on above: Performed By: #### L 500.2500, L500.3400, L501.2450 ####[facility] [address] [place], [address] ECRCL 49.30 ml/min Low 50-250 [facility] Comment on above: Performed By: #### L 500.2500, L500.3400, L501.2450 ####[facility] [address] [place], [address] GAP 7 Normal 5-15 [facility] Comment on above: Performed By: #### L 500.2500, L500.3400, L501.2450 ####[facility] [address] [place], [address] GFR/1.73 sq M.predicted among non-blacks MDRD (S/P/Bld) [Vol rate/Area] 96 mL/min/{1.73_m2} Normal >60 [facility] Comment on above: Result Comment: mL/m in/1.73m2 CKD-EPI Creatinine Equation (2020) Performed By: #### L 500.2500, L500.3400, L501.2450 ####[facility] [address] [place], [address] Glucose [Mass/Vol] 106 mg/dL High 70-99 [facility] Comment on above: Performed By: #### L 500.2500, L500.3400, L501.2450 ####[facility] [address] [place], [address] Potassium [Moles/Vol] 3.5 mmol/L Normal 3.3-5.1 [facility] Comment on above: Performed By: #### L 500.2500, L500.3400, L501.2450 ####[facility] [address] [place], [address] Sodium [Moles/Vol] 135 mmol/L Normal 133-145 [facility] Comment on above: Performed By: #### L 500.2500, L500.3400, L501.2450 ####[facility] [address] [place], [address] Urea nitrogen [Mass/Vol] 15 mg/dL Normal 4-19 [facility] Comment on above: Performed By: #### L 500.2500, L500.3400, L501.2450 ####[facility] [address] [place], [address] CBC W/Diff, Automatedon 11-0 Absolute Lymph 1.67 X10 3/uL Normal 0.83-4.51 [facility] Comment on above: Performed By: #### L 3000.0800, L3130.0010, L100.9950, L501.6710, L500.4050, L100.0100, L3100.3425, L101.9900, L503.0106 #### [facility] [address] [place], [address] Absolute Neut 3.0 X10 3/uL Normal 2.0-7.7 [facility] Comment on above: Performed By: #### L 3000.0800, L3130.0010, L100.9950, L501.6710, L500.4050, L100.0100, L3100.3425, L101.9900, L503.0106 #### [facility] [address] [place], [address] Basophils/100 WBC (Bld) 0.2 % Normal 0-1 [facility] Comment on above: Performed By: #### L 3000.0800, L3130.0010, L100.9950, L501.6710, L500.4050, L100.0100, L3100.3425, L101.9900, L503.0106 #### [facility] [address] [place], [address] Eosinophils/100 WBC (Bld) 0.2 % Normal 0-5 [facility] Comment on above: Performed By: #### L 3000.0800, L3130.0010, L100.9950, L501.6710, L500.4050, L100.0100, L3100.3425, L101.9900, L503.0106 #### [facility] [address] [place], [address] Erythrocyte distribution width (RBC) [Ratio] 13.2 % Normal 11.6-14.6 [facility] Comment on above: Performed By: #### L 3000.0800, L3130.0010, L100.9950, L501.6710, L500.4050, L100.0100, L3100.3425, L101.9900, L503.0106 #### [facility] [address] [place], [address] Hematocrit (Bld) [Volume fraction] 31.4 % Low 37-47 [facility] Comment on above: Performed By: #### L 3000.0800, L3130.0010, L100.9950, L501.6710, L500.4050, L100.0100, L3100.3425, L101.9900, L503.0106 #### [facility] [address] [place], [address] Hemoglobin (Bld) [Mass/Vol] 10.7 g/dL Low 12.0-15.0 [facility] Comment on above: Performed By: #### L 3000.0800, L3130.0010, L100.9950, L501.6710, L500.4050, L100.0100, L3100.3425, L101.9900, L503.0106 #### [facility] [address] [place], [address] IG% 0.200 Normal 0.0-0.9 [facility] Comment on above: Result Comment: IG% - Immature Granulocytes (promyelocytes, myelocytes and metamyelocytes) > 1% indicates that a LEFT SHIFT is Present. Performed By: #### L 3000.0800, L3130.0010, L100.9950, L501.6710, L500.4050, L100.0100, L3100.3425, L101.9900, L503.0106 #### [facility] [address] [place], [address] Lymphocytes/100 WBC (Bld) 32.2 % Normal 19-41 [facility] Comment on above: Performed By: #### L 3000.0800, L3130.0010, L100.9950, L501.6710, L500.4050, L100.0100, L3100.3425, L101.9900, L503.0106 #### [facility] [address] [place], [address] MCH (RBC) [Entitic mass] 29.0 pg Normal 27.0-32.0 [facility] Comment on above: Performed By: #### L 3000.0800, L3130.0010, L100.9950, L501.6710, L500.4050, L100.0100, L3100.3425, L101.9900, L503.0106 #### [facility] [address] [place], [address] MCHC (RBC) [Mass/Vol] 34.1 g/dL Normal 32-36 [facility] Comment on above: Performed By: #### L 3000.0800, L3130.0010, L100.9950, L501.6710, L500.4050, L100.0100, L3100.3425, L101.9900, L503.0106 #### [facility] [address] [place], [address] MCV (RBC) [Entitic vol] 85.1 fL Normal 81-99 [facility] Comment on above: Performed By: #### L 3000.0800, L3130.0010, L100.9950, L501.6710, L500.4050, L100.0100, L3100.3425, L101.9900, L503.0106 #### [facility] [address] [place], [address] Monocytes/100 WBC (Bld) 9.1 % Normal 0-10 [facility] Comment on above: Performed By: #### L 3000.0800, L3130.0010, L100.9950, L501.6710, L500.4050, L100.0100, L3100.3425, L101.9900, L503.0106 #### [facility] [address] [facility] [place], [address] Neutrophils/100 WBC (Bld) 58.1 % Normal 47-70 [facility] Comment on above: Performed By: #### L 3000.0800, L3130.0010, L100.9950, L501.6710, L500.4050, L100.0100, L3100.3425, L101.9900, L503.0106 #### [facility] [address] [place], [address] Nucleated RBC (Bld) [#/Vol] 0 10*3/uL Normal 0-5 [facility] Comment on above: Performed By: #### L 3000.0800, L3130.0010, L100.9950, L501.6710, L500.4050, L100.0100, L3100.3425, L101.9900, L503.0106 #### [facility] [address] [place], [address] Platelet mean volume (Bld) [Entitic vol] 9.5 fL Normal 6.2-12.0 [facility] Comment on above: Performed By: #### L 3000.0800, L3130.0010, L100.9950, L501.6710, L500.4050, L100.0100, L3100.3425, L101.9900, L503.0106 #### [facility] [address] [facility] [place], [address] Platelets (Bld) [#/Vol] 141 10*3/uL Low 150-450 [facility] Comment on above: Performed By: #### L 3000.0800, L3130.0010, L100.9950, L501.6710, L500.4050, L100.0100, L3100.3425, L101.9900, L503.0106 #### [facility] [address] [facility] [place], [address] RBC (Bld) [#/Vol] 3.69 10*6/uL Low 4.2-5.4 [facility] Comment on above: Performed By: #### L 3000.0800, L3130.0010, L100.9950, L501.6710, L500.4050, L100.0100, L3100.3425, L101.9900, L503.0106 #### [facility] [address] [place], [address] RDW SD 41.1 fl Normal 35.1-43.9 [facility] Comment on above: Performed By: #### L 3000.0800, L3130.0010, L100.9950, L501.6710, L500.4050, L100.0100, L3100.3425, L101.9900, L503.0106 #### [facility] [address] [facility] [place], [place], [address] WBC (Bld) [#/Vol] 5.2 10*3/uL Normal 4.4-11.0 [facility] Comment on above: Performed By: #### L 3000.0800, L3130.0010, L100.9950, L501.6710, L500.4050, L100.0100, L3100.3425, L101.9900, L503.0106 #### [facility] [address] [facility] [place], [address] Carbohydrate AG 19-9on 04-02 CA 19-9 12 U/mL Normal 0-35 [facility] Comment on above: Result Comment: YaBattle Electrochemiluminescence Immunoassay (ECLIA) Values obtained with different assay methods or kits cannot be used interchangeably. Results cannot be interpreted as absolute evidence of the presence or absence of malignant disease. Performed at: [address] [id number] Claim Inspector: Cristhian Nath PhD, Phone: [phone] Performed By: #### L 3000.0800, L3130.0010, L100.9950, L501.6710, L500.4050, L100.0100, L3100.3425, L101.9900, L503.0106 #### [facility] [address] [facility] [place], [address] Lipaseon 04-02-2025 Lipase [Catalytic activity/Vol] 1035 U/L High 13-75 [facility] Comment on above: Result Comment: David yo note: LIPASE revised reference range effective 22. New Lipase methodology. Expected to produce lower values than the previous assay method. NEW Reference Range: 13 - 75 U/L Performed By: #### L 500.2500, L500.3400, L501.2450 ####[facility] [address] [place], [address] Liver Profileon 04-02-2025 Albumin [Mass/Vol] 3.3 g/dL Low 3.4-4.8 [facility] Comment on above: Performed By: #### L 500.2500, L500.3400, L501.2450 ####[facility] [address] [place], [address] ALK PHOS 47 U/L Normal 35-104 [facility] Comment on above: Performed By: #### L 500.2500, L500.3400, L501.2450 ####[facility] [address] [place], [address] ALT [Catalytic activity/Vol] 14 U/L Normal <=34 [facility] Comment on above: Performed By: #### L 500.2500, L500.3400, L501.2450 ####[facility] [address] [place], [address] AST [Catalytic activity/Vol] 29 U/L Normal <=31 [facility] Comment on above: Performed By: #### L 500.2500, L500.3400, L501.2450 ####[facility] [address] [place], [address] Bilirubin [Mass/Vol] 0.50 mg/dL Normal 0.00-1.30 [facility] Comment on above: Performed By: #### L 500.2500, L500.3400, L501.2450 ####[facility] [address] [place], [address] Bilirubin.direct [Mass/Vol] 0.21 mg/dL Normal 0.00-0.30 [facility] Comment on above: Performed By: #### L 500.2500, L500.3400, L501.2450 ####[facility] [address] [place], [address] Globulin (S) [Mass/Vol] 2.1 g/dL Low 2.2-4.2 [facility] Comment on above: Performed By: #### L 500.2500, L500.3400, L501.2450 ####[facility] [address] [place], [address] T PROT 5.4 g/dL Low 5.9-8.4 [facility] Comment on above: Performed By: #### L 500.2500, L500.3400, L501.2450 ####[facility] [address] [place], [address] MR/CON.PCM.GIon 04-02-2025 MR/CON.PCM.GI [facility] Medical Records Department [address] [place] [address] Consultation - GI 04/02/25 0055 MR#: [id number] Acct: [id number] Name: OLGA STAFFORD Rep #: [id number] : 1950 75 From: Alejandro Roy DO PCP: Dr. Radha Rodas DO Status:ADM IN Location: [facility] BE230-5 HPI Consult Data Date of Consult: 04/02/25 HPI Narrative Reason for Consultation: Pancreatitis HPI Narrative: OLGA STAFFORD, is a 75-year-old woman with a history of episodic vomiting who presented with abdominal pain, hyperglycemia, and CT findings consistent with acute pancreatitis. 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 She reports tolerating a small amount of a clear liquid diet at present. CA 19-9 is pending. PFSH Medical History Loss of hearing Protein intolerance History of steroid therapy Fatty liver Vomiting Heartburn Leg cramps Wears glasses Post-menopausal Alcohol use Arthritis Injury of head and neck Loss of consciousness Non-smoker Home Medications ???Medication ???Instructions ???Recorded ???Last Taken ???Type polyethylene glycol 3350 17 4 g PO QDAY PRN constipation 02/10 Unknown History gram/dose oral powder (Miralax) budesonide 3 mg 6 mg (2 x 3 mg) PO QDAY #60 ea 03/30/25 Rx capsule,delayed,extended release Allergy/AdvReac Type Severity Reaction Status Date / Time Penicillins Allergy Hives Verified 03/31/25 23:36 Family History Mother Hypertension CVA (cerebral vascular accident) Father Hypertension Prostate cancer Surgical History History of biliary stent insertion Hx of colonoscopy History of esophagogastroduodenoscop y (EGD) Hx of appendectomy Social History household members: spouse Smoking Status: Never smoker alcohol intake: current [...] rectal bleeding, tenesmus, vomiting or weight changes Physical Exam Narrative Physical exam General: Alert, Oriented x3, Cooperative HEENT: Atraumatic, PERRLA, EOMI, Normocephalic. Oral: No Gingival or Mucosal Lesions/ Ulcerations Neck: Supple, No JVD, Negative Carotid Bruits Chest wall/Lungs: Air entry diminished in bilateral lung bases. No crepitation/rhonchi Cardiovascular: Regular rate and rhythm, Normal S1,S2, No M/G/R Abdomen: Bowel Sounds sluggish,, Soft, diffuse tenderness present predominantly epigastric region. No voluntary guarding. : No dysuria. No renal angle tenderness. No suprapubic tenderness. Extremities: No edema, Capillary Refill Less than 3 Seconds Skin: No rashes, No breakdown Musculoskeletal: No Tenderness to Palpation of Joints or Extremities Neurological: Cranial nerves II-XII grossly intact, DTR 2+/4. No acute focal neurological deficit. Psych/Mental Status: Flat affect Lab / Micro Data 04/01/25 05:49 04/01/25 05:49 Labs: Laboratory Results - last 24 hr 04/01/25 05:49: WBC 7.6, RBC 4.34, Hgb 12.3, Hct 36.5 L, MCV 84.1, MCH 28.3, MCHC 33.7, RDW Std Deviation 40.3, RDW Coeff of Eulalio 13.1, Plt Count 178, MPV 9.2, Immature Gran % (Auto) 0.300, Neut % (Auto) 83.0 H, Lymph % (Auto) 9.8 L, [place] % (Auto) 6.8, Eos % (Auto) 0.0, Baso % (Auto) 0.1, Absolute Neuts (auto) 6.3, Absolute Lymphs (auto) 0.75 L, Nucleated RBC % 0, ESR 1, Sodium 137, Potassium 3.8, Chloride 106, Carbon Dioxide 22.6, Anion Gap 9, BUN 18, Creatinine 0.60 L, Estim Creat Clear Calc 49.30 L, Est GFR (MDRD) Non-Af 93, BUN/Creatinine Ratio 29.7 H, Glucose 164 H, Calcium 8.2, Total Bilirubin 0.48, AST 32, ALT 15, Alkaline Phosphatase 57, C-React Prot Ext Range < 3.00, Total Protein 6.2, Albumin 3.7, Globulin 2.4, Albumin/Globulin Ratio 1.5, Lipase > 3000 H Imaging Radiology Impression Abdomen/Pelvis CT 04/01/25 23:55 IMPRESSION: Mild peripancreatic inflammatory fat stranding suggestive of acute pancreatitis. Mildly prominent pancreatic duct. Common bile duct stent is noted in good po (more content not included)... Normal [facility] Abdomen/Pelvis W IV Cont ONL Yon 04-01-2025 Abdomen/Pelvis W IV Cont ONLY [facility] Imaging Services [address] [place] [address] Abdomen/Pelvis W IV Cont ONLY MR#: [id number] Acct: [id number] Name: OLGA STAFFORD Rep #: [id number] : 1950 F 75 From: Ravinder garcía MD PCP: Dr. Radha Rodas DO Status: REG ER Study: Abdomen/Pelvis W IV Cont ONLY Date of Exam: Exam# [id number] Ordering Dr: Sukhdev Taylor DO PROCEDURE: ABDOMEN/PELVIS W IV CONT ONLY 04/01/2025 REASON FOR EXAM: ABDOMINAL PAIN POST EGD/BILIARY STENT TECHNIQUE: Procedure Code: CTABDPELIV Modality: CT Procedure: ABDOMEN/PELVIS W IV CONT ONLY Coronal and Sagittal reconstruction series were provided. CONTRAST: OMNIPAQUE 350 VOLUME: 100 mL One or more dose reduction techniques were used (e.g., Automated exposure control, adjustment of the mA and/or kV according to patient size, use of iterative reconstruction technique. RADIATION DOSE SUMMARY: CTDlvol: 8.47 mGy DLP: 405 mGycm COMPARISON: ERCP on 03/31/2025. MRI on 12/01/2024. FINDINGS: Mild peripancreatic inflammatory fat stranding suggestive of acute pancreatitis. Mildly prominent pancreatic duct. Common bile duct stent is noted in good position. Mild biliary ductal dilatation. Diffuse thickening of the stomach and the duodenum, possibly reactive or secondary to gastro duodenitis without perforation.. Calcified atheromatous plaques of the aorta and iliac arteries. Small sliding hiatal hernia. Contrast is noted in the gallbladder, benign finding from prior intervention. Pneumobilia is noted, benign finding secondary to prior sphincterotomy and the presence of common bile duct stent. Mild bilateral basilar atelectatic pulmonary changes. Mild diffuse spondylosis. Grade 1 anterolisthesis of L4 on L5. Moderate amount of fecal residue in the large bowels. Chronic bone changes of Paget disease. Normal liver. Normal spleen. Normal pancreas. Normal bilateral adrenal glands. Normal size of the right kidney. There is no right renal mass. There are no right renal calculi. There is no right hydronephrosis. Normal visualized right ureter. Normal size of the left kidney. There is no left renal mass. There are no left renal calculi. There is no left hydronephrosis. Normal visualized left ureter. Normal colon. The appendix is visualized and appears normal. Normal abdominal aorta. Normal inferior vena cava. Normal retroperitoneum. Normal urinary bladder. Well-defined enhancing 1.2 cm uterine fibroid. There is no pelvic mass lesion or lymphadenopathy. Normal abdominal wall. CT/Abdomen/Pelvis W IV Cont ONLY IMPRESSION: Mild peripancreatic inflammatory fat stranding suggestive of acute pancreatitis. Mildly prominent pancreatic duct. Common bile duct stent is noted in good position. Mild biliary ductal dilatation. Diffuse thickening of the stomach and the duodenum, possibly reactive or secondary to gastro duodenitis without perforation.. Calcified atheromatous plaques of the aorta and iliac arteries. Small sliding hiatal hernia. Contrast is noted in the gallbladder, benign finding from prior intervention. Pneumobilia is noted, benign finding secondary to prior sphincterotomy and the presence of common bile duct stent. Mild bilateral basilar atelectatic pulmonary changes. Mild diffuse spondylosis. Grade 1 anterolisthesis of L4 on L5. Moderate amount of fecal residue in the large bowels. Chronic bone changes of Paget disease. Reading [facility] CC: Dr. Sukhdev Taylor, DO; Dr. Radha Rodas DO Travograph Operator: Signed Normal [facility] Amylaseon 04-01-2025 AISHWARYA 2076 U/L High 28-100 [facility] Comment on above: Performed By: #### L 3000.0800, L3130.0010, L100.9950, L501.6710, L500.4050, L100.0100, L3100.3425, L101.9900, L503.0106 #### [facility] [address] [place], [address] Basic Metabolic Profile (BMP )on 04-01-2025 BUN/CRE 25.8 RATIO High 10-20 [facility] Comment on above: Performed By: #### L 3000.0800, L3130.0010, L100.9950, L501.6710, L500.4050, L100.0100, L3100.3425, L101.9900, L503.0106 #### [facility] [address] [place], [address] Calcium [Mass/Vol] 8.9 mg/dL Normal 7.6-11.0 [facility] Comment on above: Performed By: #### L 3000.0800, L3130.0010, L100.9950, L501.6710, L500.4050, L100.0100, L3100.3425, L101.9900, L503.0106 #### [facility] [address] [place], [address] Chloride [Moles/Vol] 106 mmol/L Normal 98-108 [facility] Comment on above: Performed By: #### L 3000.0800, L3130.0010, L100.9950, L501.6710, L500.4050, L100.0100, L3100.3425, L101.9900, L503.0106 #### [facility] [address] [place], [address] CO2 [Moles/Vol] 20.4 mmol/L Low 21.0-32.0 [facility] Comment on above: Performed By: #### L 3000.0800, L3130.0010, L100.9950, L501.6710, L500.4050, L100.0100, L3100.3425, L101.9900, L503.0106 #### [facility] [address] [place], [address] Creatinine [Mass/Vol] 0.69 mg/dL Low 0.70-1.20 [facility] Comment on above: Performed By: #### L 3000.0800, L3130.0010, L100.9950, L501.6710, L500.4050, L100.0100, L3100.3425, L101.9900, L503.0106 #### [facility] [address] [place], [address] ECRCL 51.40 ml/min Normal 50-250 [facility] Comment on above: Performed By: #### L 3000.0800, L3130.0010, L100.9950, L501.6710, L500.4050, L100.0100, L3100.3425, L101.9900, L503.0106 #### [facility] [address] [place], [address] GAP 12 Normal 5-15 [facility] Comment on above: Performed By: #### L 3000.0800, L3130.0010, L100.9950, L501.6710, L500.4050, L100.0100, L3100.3425, L101.9900, L503.0106 #### [facility] [address] [place], [address] GFR/1.73 sq M.predicted among non-blacks MDRD (S/P/Bld) [Vol rate/Area] 90 mL/min/{1.73_m2} Normal >60 [facility] Comment on above: Result Comment: mL/m in/1.73m2 CKD-EPI Creatinine Equation (2020) Performed By: #### L 3000.0800, L3130.0010, L100.9950, L501.6710, L500.4050, L100.0100, L3100.3425, L101.9900, L503.0106 #### [facility] [address] [place], [address] Glucose [Mass/Vol] 168 mg/dL High 70-99 [facility] Comment on above: Performed By: #### L 3000.0800, L3130.0010, L100.9950, L501.6710, L500.4050, L100.0100, L3100.3425, L101.9900, L503.0106 #### [facility] [address] [place], [address] Potassium [Moles/Vol] 4.0 mmol/L Normal 3.3-5.1 [facility] Comment on above: Result Comment: Hemo lysis present, Results??could be affected. ?? Performed By: #### L 3000.0800, L3130.0010, L100.9950, L501.6710, L500.4050, L100.0100, L3100.3425, L101.9900, L503.0106 #### [facility] [address] [place], [address] Sodium [Moles/Vol] 138 mmol/L Normal 133-145 [facility] Comment on above: Performed By: #### L 3000.0800, L3130.0010, L100.9950, L501.6710, L500.4050, L100.0100, L3100.3425, L101.9900, L503.0106 #### [facility] [address] [place], [address] Urea nitrogen [Mass/Vol] 18 mg/dL Normal 4-19 [facility] Comment on above: Performed By: #### L 3000.0800, L3130.0010, L100.9950, L501.6710, L500.4050, L100.0100, L3100.3425, L101.9900, L503.0106 #### [facility] [address] [place], [address] CBC W/Diff, Automatedon 10-3 Absolute Lymph 0.75 X10 3/uL Low 0.83-4.51 [facility] Comment on above: Performed By: #### L 500.4050, L501.2450, L100.0100 ####[facility] [address] [place], [address] Absolute Neut 6.3 X10 3/uL Normal 2.0-7.7 [facility] Comment on above: Performed By: #### L 500.4050, L501.2450, L100.0100 ####[facility] [address] [place], [address] Basophils/100 WBC (Bld) 0.1 % Normal 0-1 [facility] Comment on above: Performed By: #### L 500.4050, L501.2450, L100.0100 ####[facility] [address] [place], [address] Eosinophils/100 WBC (Bld) 0.0 % Normal 0-5 [facility] Comment on above: Performed By: #### L 500.4050, L501.2450, L100.0100 ####[facility] [address] [place], [address] Erythrocyte distribution width (RBC) [Ratio] 13.1 % Normal 11.6-14.6 [facility] Comment on above: Performed By: #### L 500.4050, L501.2450, L100.0100 ####[facility] [address] [place], [address] Hematocrit (Bld) [Volume fraction] 36.5 % Low 37-47 [facility] Comment on above: Performed By: #### L 500.4050, L501.2450, L100.0100 ####[facility] [address] [place], [address] Hemoglobin (Bld) [Mass/Vol] 12.3 g/dL Normal 12.0-15.0 [facility] Comment on above: Performed By: #### L 500.4050, L501.2450, L100.0100 ####[facility] [address] [place], [address] IG% 0.300 Normal 0.0-0.9 [facility] Comment on above: Result Comment: IG% - Immature Granulocytes (promyelocytes, myelocytes and metamyelocytes) > 1% indicates that a LEFT SHIFT is Present. Performed By: #### L 500.4050, L501.2450, L100.0100 ####[facility] [address] [place], [address] Lymphocytes/100 WBC (Bld) 9.8 % Low 19-41 [facility] Comment on above: Performed By: #### L 500.4050, L501.2450, L100.0100 ####[facility] [address] [place], [address] MCH (RBC) [Entitic mass] 28.3 pg Normal 27.0-32.0 [facility] Comment on above: Performed By: #### L 500.4050, L501.2450, L100.0100 ####[facility] [address] [place], [address] MCHC (RBC) [Mass/Vol] 33.7 g/dL Normal 32-36 [facility] Comment on above: Performed By: #### L 500.4050, L501.2450, L100.0100 ####[facility] [address] [place], [address] MCV (RBC) [Entitic vol] 84.1 fL Normal 81-99 [facility] Comment on above: Performed By: #### L 500.4050, L501.2450, L100.0100 ####[facility] [address] [place], [address] Monocytes/100 WBC (Bld) 6.8 % Normal 0-10 [facility] Comment on above: Performed By: #### L 500.4050, L501.2450, L100.0100 ####[facility] [address] [place], [address] Neutrophils/100 WBC (Bld) 83.0 % High 47-70 [facility] Comment on above: Performed By: #### L 500.4050, L501.2450, L100.0100 ####[facility] [address] [place], [address] Nucleated RBC (Bld) [#/Vol] 0 10*3/uL Normal 0-5 [facility] Comment on above: Performed By: #### L 500.4050, L501.2450, L100.0100 ####[facility] [address] [place], [address] Platelet mean volume (Bld) [Entitic vol] 9.2 fL Normal 6.2-12.0 [facility] Comment on above: Performed By: #### L 500.4050, L501.2450, L100.0100 ####[facility] [address] [place], [address] Platelets (Bld) [#/Vol] 178 10*3/uL Normal 150-450 [facility] Comment on above: Performed By: #### L 500.4050, L501.2450, L100.0100 ####[facility] [address] [place], [address] RBC (Bld) [#/Vol] 4.34 10*6/uL Normal 4.2-5.4 [facility] Comment on above: Performed By: #### L 500.4050, L501.2450, L100.0100 ####[facility] [address] [place], [address] RDW SD 40.3 fl Normal 35.1-43.9 [facility] Comment on above: Performed By: #### L 500.4050, L501.2450, L100.0100 ####[facility] [address] [place], [address] WBC (Bld) [#/Vol] 7.6 10*3/uL Normal 4.4-11.0 [facility] Comment on above: Performed By: #### L 500.4050, L501.2450, L100.0100 ####[facility] [address] [place], [address] Absolute Lymph 0.97 X10 3/uL Normal 0.83-4.51 [facility] Comment on above: Performed By: #### L 3000.0800, L3130.0010, L100.9950, L501.6710, L500.4050, L100.0100, L3100.3425, L101.9900, L503.0106 #### [facility] [address] [place], [address] Absolute Neut 4.1 X10 3/uL Normal 2.0-7.7 [facility] Comment on above: Performed By: #### L 3000.0800, L3130.0010, L100.9950, L501.6710, L500.4050, L100.0100, L3100.3425, L101.9900, L503.0106 #### [facility] [address] [facility] [place], [address] Basophils/100 WBC (Bld) 0.2 % Normal 0-1 [facility] Comment on above: Performed By: #### L 3000.0800, L3130.0010, L100.9950, L501.6710, L500.4050, L100.0100, L3100.3425, L101.9900, L503.0106 #### [facility] [address] [facility] [place], [address] Eosinophils/100 WBC (Bld) 0.0 % Normal 0-5 [facility] Comment on above: Performed By: #### L 3000.0800, L3130.0010, L100.9950, L501.6710, L500.4050, L100.0100, L3100.3425, L101.9900, L503.0106 #### [facility] [address] [facility] [place], [address] Erythrocyte distribution width (RBC) [Ratio] 13.1 % Normal 11.6-14.6 [facility] Comment on above: Performed By: #### L 3000.0800, L3130.0010, L100.9950, L501.6710, L500.4050, L100.0100, L3100.3425, L101.9900, L503.0106 #### [facility] [address] [place], [address] Hematocrit (Bld) [Volume fraction] 39.7 % Normal 37-47 [facility] Comment on above: Performed By: #### L 3000.0800, L3130.0010, L100.9950, L501.6710, L500.4050, L100.0100, L3100.3425, L101.9900, L503.0106 #### [facility] [address] [facility] [place], [place], [phone] (531) Hemoglobin (Bld) [Mass/Vol] 13.4 g/dL Normal 12.0-15.0 [facility] Comment on above: Performed By: #### L 3000.0800, L3130.0010, L100.9950, L501.6710, L500.4050, L100.0100, L3100.3425, L101.9900, L503.0106 #### [facility] [address] [facility] [place], [address] IG% 0.200 Normal 0.0-0.9 [facility] Comment on above: Result Comment: IG% - Immature Granulocytes (promyelocytes, myelocytes and metamyelocytes) > 1% indicates that a LEFT SHIFT is Present. Performed By: #### L 3000.0800, L3130.0010, L100.9950, L501.6710, L500.4050, L100.0100, L3100.3425, L101.9900, L503.0106 #### [facility] [address] [facility] [address] [place], [place], [phone] ([phone] Lymphocytes/100 WBC (Bld) 17.8 % Low 19-41 [facility] Comment on above: Performed By: #### L 3000.0800, L3130.0010, L100.9950, L501.6710, L500.4050, L100.0100, L3100.3425, L101.9900, L503.0106 #### [facility] [address] [place], [address] MCH (RBC) [Entitic mass] 28.7 pg Normal 27.0-32.0 [facility] Comment on above: Performed By: #### L 3000.0800, L3130.0010, L100.9950, L501.6710, L500.4050, L100.0100, L3100.3425, L101.9900, L503.0106 #### [facility] [address] [place], [address] MCHC (RBC) [Mass/Vol] 33.8 g/dL Normal 32-36 [facility] Comment on above: Performed By: #### L 3000.0800, L3130.0010, L100.9950, L501.6710, L500.4050, L100.0100, L3100.3425, L101.9900, L503.0106 #### [facility] [address] [place], [address] MCV (RBC) [Entitic vol] 85.0 fL Normal 81-99 [facility] Comment on above: Performed By: #### L 3000.0800, L3130.0010, L100.9950, L501.6710, L500.4050, L100.0100, L3100.3425, L101.9900, L503.0106 #### [facility] [address] [place], [address] Monocytes/100 WBC (Bld) 7.0 % Normal 0-10 [facility] Comment on above: Performed By: #### L 3000.0800, L3130.0010, L100.9950, L501.6710, L500.4050, L100.0100, L3100.3425, L101.9900, L503.0106 #### [facility] [address] [place], [address] Neutrophils/100 WBC (Bld) 74.8 % High 47-70 [facility] Comment on above: Performed By: #### L 3000.0800, L3130.0010, L100.9950, L501.6710, L500.4050, L100.0100, L3100.3425, L101.9900, L503.0106 #### [facility] [address] [facility] [place], [address] Nucleated RBC (Bld) [#/Vol] 0 10*3/uL Normal 0-5 [facility] Comment on above: Performed By: #### L 3000.0800, L3130.0010, L100.9950, L501.6710, L500.4050, L100.0100, L3100.3425, L101.9900, L503.0106 #### [facility] [address] [place], [address] Platelet mean volume (Bld) [Entitic vol] 9.6 fL Normal 6.2-12.0 [facility] Comment on above: Performed By: #### L 3000.0800, L3130.0010, L100.9950, L501.6710, L500.4050, L100.0100, L3100.3425, L101.9900, L503.0106 #### [facility] [address] [facility] [place], [address] Platelets (Bld) [#/Vol] 189 10*3/uL Normal 150-450 [facility] Comment on above: Performed By: #### L 3000.0800, L3130.0010, L100.9950, L501.6710, L500.4050, L100.0100, L3100.3425, L101.9900, L503.0106 #### [facility] [address] [place], [place], [phone] (512) RBC (Bld) [#/Vol] 4.67 10*6/uL Normal 4.2-5.4 [facility] Comment on above: Performed By: #### L 3000.0800, L3130.0010, L100.9950, L501.6710, L500.4050, L100.0100, L3100.3425, L101.9900, L503.0106 #### [facility] [address] [place], [address] (056) RDW SD 40.1 fl Normal 35.1-43.9 [facility] Comment on above: Performed By: #### L 3000.0800, L3130.0010, L100.9950, L501.6710, L500.4050, L100.0100, L3100.3425, L101.9900, L503.0106 #### [facility] [address] [place], [address] WBC (Bld) [#/Vol] 5.5 10*3/uL Normal 4.4-11.0 [facility] Comment on above: Performed By: #### L 3000.0800, L3130.0010, L100.9950, L501.6710, L500.4050, L100.0100, L3100.3425, L101.9900, L503.0106 #### [facility] [address] [place], [address] CRPon 04-01-2025 C-REACTIVE PROT < 3.00 Normal 0.0-3.0 [facility] Comment on above: Performed By: #### L 3000.0800, L3130.0010, L100.9950, L501.6710, L500.4050, L100.0100, L3100.3425, L101.9900, L503.0106 #### [facility] [address] [place], [address] Comprehensive Metabolic Prof maon 04-01-2025 Albumin [Mass/Vol] 3.7 g/dL Normal 3.4-4.8 [facility] Comment on above: Performed By: #### L 500.4050, L501.2450, L100.0100 ####[facility] [address] [place], [address] Albumin/Globulin [Mass ratio] 1.5 {ratio} Normal 0.9-2.4 [facility] Comment on above: Performed By: #### L 500.4050, L501.2450, L100.0100 ####[facility] [address] [place], [address] ALK PHOS 57 U/L Normal 35-104 [facility] Comment on above: Performed By: #### L 500.4050, L501.2450, L100.0100 ####[facility] [address] [place], [address] ALT [Catalytic activity/Vol] 15 U/L Normal <=34 [facility] Comment on above: Performed By: #### L 500.4050, L501.2450, L100.0100 ####[facility] [address] [place], [address] AST [Catalytic activity/Vol] 32 U/L Normal <=31 [facility] Comment on above: Performed By: #### L 500.4050, L501.2450, L100.0100 ####[facility] [address] [place], [address] Bilirubin [Mass/Vol] 0.48 mg/dL Normal 0.00-1.30 [facility] Comment on above: Performed By: #### L 500.4050, L501.2450, L100.0100 ####[facility] [address] [place], [address] BUN/CRE 29.7 RATIO High 10-20 [facility] Comment on above: Performed By: #### L 500.4050, L501.2450, L100.0100 ####[facility] [address] [place], [address] Calcium [Mass/Vol] 8.2 mg/dL Normal 7.6-11.0 [facility] Comment on above: Performed By: #### L 500.4050, L501.2450, L100.0100 ####[facility] [address] [place], [address] Chloride [Moles/Vol] 106 mmol/L Normal 98-108 [facility] Comment on above: Performed By: #### L 500.4050, L501.2450, L100.0100 ####[facility] [address] [place], [address] CO2 [Moles/Vol] 22.6 mmol/L Normal 21.0-32.0 [facility] Comment on above: Performed By: #### L 500.4050, L501.2450, L100.0100 ####[facility] [address] [place], [address] Creatinine [Mass/Vol] 0.60 mg/dL Low 0.70-1.20 [facility] Comment on above: Performed By: #### L 500.4050, L501.2450, L100.0100 ####[facility] [address] [place], [address] ECRCL 49.30 ml/min Low 50-250 [facility] Comment on above: Performed By: #### L 500.4050, L501.2450, L100.0100 ####[facility] [address] [place], [address] GAP 9 Normal 5-15 [facility] Comment on above: Performed By: #### L 500.4050, L501.2450, L100.0100 ####[facility] [address] [place], [address] GFR/1.73 sq M.predicted among non-blacks MDRD (S/P/Bld) [Vol rate/Area] 93 mL/min/{1.73_m2} Normal >60 [facility] Comment on above: Result Comment: mL/m in/1.73m2 CKD-EPI Creatinine Equation (2020) Performed By: #### L 500.4050, L501.2450, L100.0100 ####[facility] [address] [place], [address] Globulin (S) [Mass/Vol] 2.4 g/dL Normal 2.2-4.2 [facility] Comment on above: Performed By: #### L 500.4050, L501.2450, L100.0100 ####[facility] [address] [place], [address] Glucose [Mass/Vol] 164 mg/dL High 70-99 [facility] Comment on above: Performed By: #### L 500.4050, L501.2450, L100.0100 ####[facility] [address] [place], [address] Potassium [Moles/Vol] 3.8 mmol/L Normal 3.3-5.1 [facility] Comment on above: Performed By: #### L 500.4050, L501.2450, L100.0100 ####[facility] [address] [place], [address] Sodium [Moles/Vol] 137 mmol/L Normal 133-145 [facility] Comment on above: Performed By: #### L 500.4050, L501.2450, L100.0100 ####[facility] [address] [place], [address] T PROT 6.2 g/dL Normal 5.9-8.4 [facility] Comment on above: Performed By: #### L 500.4050, L501.2450, L100.0100 ####[facility] [address] [place], [address] Urea nitrogen [Mass/Vol] 18 mg/dL Normal 4-19 [facility] Comment on above: Performed By: #### L 500.4050, L501.2450, L100.0100 ####[facility] [address] [place], [address] Emergency Department Summary on 04-01-2025 Emergency Department Summary [facility] Medical Records Department [address] [place] [address] Emergency Department Summary 04/01/25 MR#: [id number] Acct: [id number] Name: OLGA STAFFORD Rep #: [id number] : 1950 75 From: Sukhdev Taylor DO PCP: Dr. Radha Rodas DO Status:[facility]M IN [facility] History of Present Illness Chief Complaint: Abd Pain Informant: patient and spouse/S.O. Narrative Narrative: 75-year-old female presenting to the emergency room with upper abdominal pain and vomiting. Patient underwent EGD evaluation with Dr. Kirill stephens. She was found to have choledocholithiasis and a biliary stent was placed. She states that she went home and was doing well. Tonight around 1715 hrs. she had some chicken and rice soup. She went to bed at around 2015 and awoke suddenly with severe abdominal pain which resulted in 2 episodes of emesis. She was given morphine by EMS. She continues to have pain. No reported fevers. She has not had a bowel movement. PFSH PFSH Medical History Loss of hearing Protein intolerance History of steroid therapy Fatty liver Vomiting Heartburn Leg cramps Wears glasses Post-menopausal Alcohol use Arthritis Injury of head and neck Loss of consciousness Non-smoker Home Medications ???Medication ???Instructions ???Recorded ???Last Taken ???Type polyethylene glycol 3350 17 4 g PO QDAY PRN constipation 02/10 Unknown History gram/dose oral powder (Miralax) budesonide 3 mg 6 mg (2 x 3 mg) PO QDAY #60 ea 03/30/25 Rx capsule,delayed,extended release Allergy/AdvReac Type Severity Reaction Status Date / Time Penicillins Allergy Hives Verified 03/31/25 23:36 Family History Mother Hypertension CVA (cerebral vascular accident) Father Hypertension Prostate cancer Surgical History (Updated 04/01/25 @ 01:[address] Tracey Gomez MD) History of biliary stent insertion Hx of colonoscopy History of esophagogastroduodenoscop y (EGD) Hx of appendectomy Social History (Updated 04/01/25 @ 01:[address] Tracey Gomez MD) household members: spouse Smoking Status: Never smoker alcohol intake: current alcohol intake frequency: holidays/special occasions only substance use type: does not use what type of physical activity do you participate in: walking and bicycling ROS ROS ED Constitutional Constitutional ED: Denies chills, fever(s) or weight loss Eyes Eyes: Denies change in vision or diplopia ENT ENT ED: Denies ear pain, rhinorrhea or sore throat Cardiovascular Cardiovascular: Denies chest pain, orthopnea, palpitations or racing heartbeat Respiratory/Chest Respiratory/Chest: Denies cough, dyspnea or orthopnea Gastrointestinal Gastrointestinal: Reports abdominal pain, nausea and vomiting; Denies diarrhea Genitourinary Genitourinary ED: Denies dysuria, hematuria or urinary frequency Musculoskeletal Musculoskeletal: Denies arthralgias or myalgias Integumentary Denies abscess or rash Neurologic Neurologic: Denies headache(s) or weakness Psychiatric Psychiatric: Denies anxiety, depression, suicidal ideation or suicidal thoughts Endocrine Endocrinology: Denies polydipsia, polyphagia or polyuria Allergic/Immunologic Allergic/Immunologic ED: Denies mouth swelling, tongue swelling or urticaria EXAM Physical Exam Const Vital Signs: 03/31/25 23:34 03/31/25 23:36 04/01/25 00:36 Temperature 97.8 F 98.0 F 97.8 F Temperature Source Oral Temporal Temporal Pulse Rate 68 70 66 Respiratory Rate 16 13 16 Blood Pressure 146/80 H 148/85 H 171/89 H Blood Pressure Mean 102 106 116 Pulse Ox 96 97 98 Oxygen Delivery Method Room Air Room Air Room Air 04/01/25 01:00 04/01/25 01:33 04/01/25 02:00 Temperature 97.9 F 98.2 F Temperature Source Temporal Temporal Pulse Rate 58 L 52 L 50 L Respiratory Rate 17 17 17 Blood Pressure 163/73 H 177/79 H Blood Pressure Mean 103 111 Pulse Ox 98 98 Oxygen Delivery Method Room Air Room Air 04/01/25 03:00 04/01/25 03:00 Temperature 98.3 F Temperature Source Temporal Pulse Rate 83 65 Respiratory Rate 16 16 Blood Pressure 171/73 H Blood Pressure Mean 105 Pulse Ox 96 97 Oxygen Delivery Method Room Air Room Air Positive well nourished and well developed General Appearance ED: well developed HEENT Reports normocephalic, head/scalp atraumatic and moist mucous membranes Eyes PERRL and EOMs intact bilaterally Neck no lymphadenopathy, supple and no JVD Resp normal respiratory effort and clear to auscultation bilaterally Cardio regular rate, regular rhythm and no murmurs GI non-distended Inspection: Negative for abdominal distention Auscultation: normoactive bowel sounds Palpatio (more content not included)... Normal [facility] Erythrocyte Sed Rateon 04-01 SED RATE 1 mm/hr Normal 0-30 [facility] Comment on above: Performed By: #### L 3000.0800, L3130.0010, L100.9950, L501.6710, L500.4050, L100.0100, L3100.3425, L101.9900, L503.0106 #### [facility] [address] [place] [place], [address] H AND P Exam - Hospitaliston 04-01-2025 H&P Exam - Hospitalist [facility] Medical Records Department [address] [place] [address] H P Exam - Hospitalist 04/01/25 0141 MR#: [id number] Acct: [id number] Name: OLGA STAFFORD Rep #: [id number] : 1950 75 From: Tracey Gomez MD PCP: Dr. Radha Rodas, DO Status:REG ER Location: ED HPI - General General Date of Admission: 04/01/25 Date of Service: 04/01/25 Chief Complaint: Abdominal pain, N/V. 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 Roy secondary to abnormal MRCP/abdominal ultrasound with elevated LFTs with suspected biliary origin with significant choledocholithiasis identified with removal of stones with biliary stent and balloon extraction with stents placed in the common bile duct and cells for cytology obtained in the lower third of the main duct who now re-presents to the [facility] ED on 04/01/2025 secondary to onset following dinner epigastric discomfort with associated nausea and emesis with pain noted to be sharp, stabbing and aching rated 8-9 of 10 in severity initially, improved currently following ED interventions and rated 4 out of 10 in severity. She denies any associated diarrhea or fever or chills. Workup in the ED included T97.8, heart rate 68, BP 146/80, respiratory rate 16, 96% on room air with most recent repeat vitals T97.9, heart rate 58, BP 163/73, respiratory rate 17, 98% room air, CBC with WC 5.5, hemoglobin 13.4, platelet 189 without marked shift, CMP with carbon oxide 20.4, BUN/creatinine 18/0.69, GFR 90, glucose 168, hepatic profile with AST 35 otherwise not marked appearing, lipase greater than 3000, amylase 2076, CT abdomen and pelvis []. In the ED patient initiated on maintenance IV fluids, administered Dilaudid 0.5 mg IV x 1 and Zofran 4 mg IV x 1. PFSH Medical History Loss of hearing Protein intolerance History of steroid therapy Fatty liver Vomiting Heartburn Leg cramps Wears glasses Post-menopausal Alcohol use Arthritis Injury of head and neck Loss of consciousness Non-smoker Home Medications ???Medication ???Instructions ???Recorded ???Last Taken ???Type polyethylene glycol 3350 17 4 g PO QDAY PRN constipation 02/10 Unknown History gram/dose oral powder (Miralax) budesonide 3 mg 6 mg (2 x 3 mg) PO QDAY #60 ea 03/30/25 Rx capsule,delayed,extended release Allergy/AdvReac Type Severity Reaction Status Date / Time Penicillins Allergy Hives Verified 03/31/25 23:36 Family History Mother Hypertension CVA (cerebral vascular accident) Father Hypertension Prostate cancer Surgical History (Updated 04/01/25 @ 01:[address] Tracey Gomez MD) History of biliary stent insertion Hx of colonoscopy History of esophagogastroduodenoscop y (EGD) Hx of appendectomy Social History (Updated 04/01/25 @ 01:[address] Tracey Gomez MD) household members: spouse Smoking Status: Never smoker alcohol intake: current alcohol intake frequency: holidays/special occasions only substance use type: does not use what type of physical activity do you participate in: walking and bicycling ROS ROS Narrative Admission Review of Systems: CONSTITUTIONAL: No weight loss, fever, chills, + weakness or fatigue. HEENT: Eyes: No visual loss, blurred vision, double vision or yellow sclerae. Ears, Nose, Throat: No hearing loss, sneezing, congestion, runny nose or sore throat. SKIN: No rash or itching, lesions, wounds. CARDIOVASCULAR: No chest pain, chest pressure or chest discomfort, palpitations, edema, orthopnea, syncopal events. RESPIRATORY: No shortness of breath, cough or sputum, wheezing, hemoptysis. GASTROINTESTINAL: + anorexia, nausea, vomiting, abdominal pain. No diarrhea, melena, BRBPR. GENITOURINARY: No dysuria, frequency, urgency or retention. NEUROLOGICAL: No headache, dizziness, syncope, paralysis, ataxia, numbness or tingling in the extremities, focal weakness, change in bowel or bladder control, seizure. MUSCULOSKELETAL: + muscle, back pain, joint pain or stiffness. HEMATOLOGIC: No anemia, bleeding or bruising. LYMPHATICS: No enlarged nodes. No history of splenectomy. PSYCHIATRIC: No history of depression or anxiety. ENDOCRINOLOGIC: No reports of sweating. +Hx cold or heat intolerance. No polyuria or polydipsia. ALLERGIES: + Hx Hives. Vital Signs Vital Signs Vital Signs: 10/30/25 23:34 03/31/25 23:36 04/01/25 00:36 Temperature 97.8 F 98.0 F 97.8 F Temperature Source Oral Temporal Temporal Pulse Rate 68 70 66 Respiratory Rate 16 13 16 Blood Pressure 146/80 H 148/85 H 171/89 H Blood Pressure Mean 102 106 1 (more content not included)... Normal [facility] Lipaseon 04-01-2025 Lipase [Catalytic activity/Vol] U/L High 13-75 [facility] Comment on above: Result Comment: Plea note: LIPASE revised reference range effective 22. New Lipase methodology. Expected to produce lower values than the previous assay method. NEW Reference Range: 13 - 75 U/L Performed By: #### L 500.4050, L501.2450, L100.0100 ####[facility] [address] [place], [address] Lipase [Catalytic activity/Vol] U/L High 13-75 [facility] Comment on above: Result Comment: David yo note: LIPASE revised reference range effective 22. New Lipase methodology. Expected to produce lower values than the previous assay method. NEW Reference Range: 13 - 75 U/L Performed By: #### L 3000.0800, L3130.0010, L100.9950, L501.6710, L500.4050, L100.0100, L3100.3425, L101.9900, L503.0106 #### [facility] [address] [place], [place], [id number] Liver Profileon 04-01-2025 Albumin [Mass/Vol] 4.0 g/dL Normal 3.4-4.8 [facility] Comment on above: Performed By: #### L 3000.0800, L3130.0010, L100.9950, L501.6710, L500.4050, L100.0100, L3100.3425, L101.9900, L503.0106 #### [facility] [address] [place], [place], [id number] ALK PHOS 63 U/L Normal 35-104 [facility] Comment on above: Performed By: #### L 3000.0800, L3130.0010, L100.9950, L501.6710, L500.4050, L100.0100, L3100.3425, L101.9900, L503.0106 #### [facility] [address] [place], [place], [phone] (423) ALT [Catalytic activity/Vol] 17 U/L Normal <=34 [facility] Comment on above: Performed By: #### L 3000.0800, L3130.0010, L100.9950, L501.6710, L500.4050, L100.0100, L3100.3425, L101.9900, L503.0106 #### [facility] [address] [place], [place], [phone] (053) AST [Catalytic activity/Vol] 35 U/L High <=31 [facility] Comment on above: Performed By: #### L 3000.0800, L3130.0010, L100.9950, L501.6710, L500.4050, L100.0100, L3100.3425, L101.9900, L503.0106 #### [facility] [address] [place], [place], [phone] (681) Bilirubin [Mass/Vol] 0.63 mg/dL Normal 0.00-1.30 [facility] Comment on above: Performed By: #### L 3000.0800, L3130.0010, L100.9950, L501.6710, L500.4050, L100.0100, L3100.3425, L101.9900, L503.0106 #### [facility] [address] [place], [place], [phone] (313) Bilirubin.direct [Mass/Vol] 0.23 mg/dL Normal 0.00-0.30 [facility] Comment on above: Performed By: #### L 3000.0800, L3130.0010, L100.9950, L501.6710, L500.4050, L100.0100, L3100.3425, L101.9900, L503.0106 #### [facility] [address] [place], [address] Globulin (S) [Mass/Vol] 2.8 g/dL Normal 2.2-4.2 [facility] Comment on above: Performed By: #### L 3000.0800, L3130.0010, L100.9950, L501.6710, L500.4050, L100.0100, L3100.3425, L101.9900, L503.0106 #### [facility] [address] [place], [address] T PROT 6.9 g/dL Normal 5.9-8.4 [facility] Comment on above: Performed By: #### L 3000.0800, L3130.0010, L100.9950, L501.6710, L500.4050, L100.0100, L3100.3425, L101.9900, L503.0106 #### [facility] [address] [place], [address] 12 Lead EKGon 03-31-2025 12 Lead EKG [facility] [address] [place] [address] 12 Lead EKG 03/31/25 0806 MR#: [id number] Acct: [id number] Name: OLGA STAFFORD Rep #: [id number] : 1950 75 From: Daniel Dickerson MD Attending Dr: Alejandro Friend, DO Status: DEP ND C Ordering Dr: Usman Peguero MD Date: 03/31/25 Location: EN Sex: F C Admitted: Test Reason : pre op Blood Pressure : */* mmHG Vent. Rate : 53 BPM Atrial Rate : 53 BPM P-R Int : 160 ms QRS Dur : 80 ms QT Int : 444 ms P-R-T Axes : 74 2 51 degrees QTcB Int : 416 ms Sinus bradycardia Otherwise normal ECG When compared with ECG of 06-Mar-2006 15:59, No significant change was found Confirmed by DANIEL DICKERSON MD ([id number]), associate entertainment editor PETE ROMAN ([id number]) on 04/02/2025 8:06:09 AM Referred By: Radha Rodas Confirmed By: DANIEL DICKERSON MD 04/02/25 0806 Date Daniel Dickerson MD CC: Dr. Usman Peguero MD; Dr. Radha Rodas DO; Alejandro Roy DO Signed Normal [facility] ERCP Biliary/Pancreason 03-04 ERCP Biliary/Pancreas [facility] Imaging Services [address] [place] [address] ERCP Biliary/Pancreas MR#: [id number] Acct: [id number] Name: OLGA STAFFORD Rep #: [id number] : 1950 F 75 From: Gregg Price PCP: Dr. Radha Rodas DO Status: [facility] Study: ERCP Biliary/Pancreas Date of Exam: 03/31/25 Exam# [id number] Ordering Dr: Alejandro Roy DO PROCEDURE: ERCP BILIARY/PANCREAS; O.R. FLUORO FOR C-ARM 03/31/2025 REASON FOR EXAM: ERCP TECHNIQUE: Procedure Code: RADERCP; RADORFL_C_ARM Modality: DX Procedure: ERCP BILIARY/PANCREAS; O.R. FLUORO FOR C-ARM Fluoroscopy time: 172.4 seconds. Dose: 24.16 mGy. COMPARISON: None. RAD/ERCP Biliary/Pancreas IMPRESSION: Intraoperative fluoroscopy for ERCP. 10 fluoroscopic images were also obtained. Reading Location: [place] [address] CC: Dr. Radha Rodas DO; Alejandro Roy DO Travograph Operator: Signed Normal [facility] ERCP Reporton 03-31-2025 ERCP Report [facility] Medical Records Department [address] [place] [address] ERCP Report MR#: [id number] Acct: [id number] Name: OLGA STAFFORD Rep #: [id number] : 1950 75 From: Alejandro Roy DO PCP: Dr. Radha Rodas DO Status:REG [facility] Patient Name: Olga Stafford Procedure Date: 03/31/2025 6:46 AM Date of : 1950 Age: 75 Procedure: ERCP Indications: Abdominal pain of suspected biliary origin, Abnormal MRCP, Abnormal abdominal ultrasound, Elevated liver enzymes Providers: Alejandro Roy DO Referring MD: Radha Rodas Medicines: General Anesthesia Patient Profile: This is a 75 year old female. Refer to note in patient chart for documentation of history and physical. Patient has symptoms of chronic right upper quadrant abdominal pain. This patient has no history of previous ERCP. This patient has no history of surgical alteration of the upper digestive tract anatomy. Complications: No immediate complications. Procedure: Pre-Anesthesia Assessment: [...] Examination: clear to auscultation. CV Examination: normal. ASA Grade Assessment: II - A patient with mild systemic disease. After reviewing the risks and benefits, the patient was deemed in satisfactory condition to undergo the procedure. The anesthesia plan was to use general anesthesia. Immediately prior to administration of medications, the patient was re-assessed for adequacy to receive sedatives. The heart rate, respiratory rate, oxygen saturations, blood pressure, adequacy of pulmonary ventilation, and response to care were monitored throughout the procedure. The physical status of the patient was re-assessed after the procedure. After obtaining informed consent, the scope was passed under direct vision. Throughout the procedure, the patient's blood pressure, pulse, and oxygen saturations were monitored continuously. The Duodenoscope was introduced through the mouth, and advanced to the duodenum and used to inject contrast into the bile duct. The ERCP was accomplished without difficulty. The patient tolerated the procedure well. Scope In: 10:28:39 AM Scope Out: 10:57:24 AM Total Procedure Duration Time 0 hours 28 minutes 45 seconds Findings: The horse show manager film was normal. The esophagus was successfully intubated under direct vision. The scope was advanced to a normal major papilla in the descending duodenum without detailed examination of the pharynx, larynx and associated structures, and upper GI tract. The upper GI tract was grossly normal. A long 0.025 inch Jagwire was passed into the biliary tree. The short-nosed traction sphincterotome was passed over the guidewire and the bile duct was then deeply cannulated. Contrast was injected. I personally interpreted the bile duct images. There was brisk flow of contrast through the ducts. Image quality was adequate. Contrast extended to the entire biliary tree. The entire biliary tree except for the cystic duct and gallbladder and common bile duct contained three stones, the largest of which was 7 mm in diameter. A 5 mm biliary sphincterotomy was made with a traction (standard) sphincterotome using ERBE electrocautery. There was no post-sphincterotomy bleeding. The biliary tree was swept with a 12 mm balloon starting at the upper third of the main bile duct, middle third of the main bile duct, lower third of the main duct, cystic duct, bifurcation, left intrahepatic duct(s) and left main hepatic duct. Sludge was swept from the duct. All stones were removed. Cells for cytology were obtained by brushing in the lower third of the main bile duct. One 10 Fr by 5 cm temporary stent was placed 5 cm into the common bile duct. Bile flowed through the stent. The stent was in good position. Impression: - Choledocholithiasis was found. Complete removal was accomplished by biliary sphincterotomy and balloon extraction. - A biliary sphincterotomy was performed. - The biliary tree was swept. - Cells for cytology obtained in the lower third of the main duct. - One temporary stent was placed into the common bile duct. Procedure Code(s): --- Professional --- 65300, Endoscopic retrograde cholangiopancreatography (ERCP); with placement of endoscopic stent into biliary or pancreatic duct, including pre- and post-dilati (more content not included)... Normal [facility] MR/OP.PROVATon 03-31-2025 MR/OP.PROVAT [facility] Medical Records Department [address] [place] [address] Provation Physician Letter MR#: [id number] Acct: [id number] Name: OLGA STAFFORD Rep #: [id number] : 1950 75 From: Alejandro Roy DO PCP: Dr. Radha Rodas DO Status:REG [facility] 03/31/2025 Radha Rodas [address] [facility] [place] [address] [place] [address] Re : ERCP procedure for Olga Stafford Dear Dr. Rodas This procedure was performed on , March 31, 2025. My impressions and recommendations are as follows: Impressions : - Choledocholithiasis was found. Complete removal was accomplished by biliary sphincterotomy and balloon extraction. - A biliary sphincterotomy was performed. - The biliary tree was swept. - Cells for cytology obtained in the lower third of the main duct. - One temporary stent was placed into the common bile duct. Recommendations : My findings are described in the full procedure note, which is enclosed. If I can be of further assistance, please feel free to contact me at . Sincerely, Alejandro Roy DO 03/31/2025 11:15:14 AM This report has been signed electronically. 03/31/25 1115 Date Alejandro Roy DO Cosigner Signature: Date (if indicated) CC: Dr. Radha Rodas DO; Alejandro Roy DO Date Dictated: 03/31/25 0646 Date Transcribed: Travograph Operator: RF Signed [facility] MR/POSTOP.Mayela 03-31-2025 MR/POSTOP.[facility] Medical Records Department [address] [place] [address] Anesthesia Postop Eval I 03/31/25 1122 MR#: [id number] Acct: [id number] Name: OLGA STAFFORD Rep #: [id number] : 1950 75 From: Tomasz Hagan PCP: Dr. Radha Rodas, DO Status:REG [facility] Y Race: C Location: [place] [address] Anesthesia: Postop Eval I Current Vital Signs Temperature: 97 F Pulse Rate: 68 Blood Pressure: 104/60 Respiratory Rate: 16 Pulse Ox: 98 Oxygen Delivery Method: Room Air Assessment Airway patent: Yes Spontaneous unlabored respirations: Yes Mental status: Asleep nausea: No Vomiting: No Anesthesia Complication: No Fluid Hydration Crystalloid volume administer (ml): 900 Total IV fluid infused: 900 Progress Note Anesthesia document: Postop Eval 1 completed: Yes 03/31/251121 Date Tomasz Das Signature: Date CC: Signed Normal [facility] MR/[id number] 03-31-2025 [facility] Medical Records Department [address] [place] [address] Anesthesia Postop Eval II 03/31/25 1144 MR#: [id number] Acct: [id number] Name: OLGA STAFFORD Rep #: [id number] : 1950 75 From: Usman Peguero MD PCP: Dr. Radha Rodas, DO Status:REG [facility]C Y Race: C Location: [place] [address] Anesthesia Postop Eval I Sum Postop Eval Completion status Anesthesia document: Postop Eval 1 completed: Yes Anesthesia Postop Eval I Summary Anesthesia Postop Eval I Summary: Anesthesia Postop Eval I: Assessment Summary Airway patent Yes 03/31/25 11:22 [email or web address] Spontaneous unlabored Yes 03/31/25 11:22 [email or web address] respirations Mental status Asleep 03/31/25 11:22 [email or web address] nausea No 03/31/25 11:22 [email or web address] Vomiting No 03/31/25 11:22 [email or web address] Anesthesia Postop Eval I: Fluid Summary Crystalloid volume administer 900 03/31/25 11:22 [email or web address] (ml) Colloids volume administered ( ml) Blood Product volume administered (ml) Total IV fluid infused 900 03/31/25 11:22 [email or web address] Anesthesia Postop Eval I: Summary Notes Anesthesia Complication No 03/31/25 11:22 [email or web address] Anesthesia Complication Comment: Post-operative progress note Anesthesia: Postop Eval II Evaluation Mental status: Awake and Calm Pain Level: 1 nausea: No Vomiting: No Complications Anesthesia Complication: No 03/31/25 1144 Date Usman Peguero MD Cosigner Signature: Date CC: Signed Normal [facility] O.R. Fluoro for C-Casey 03-04 O.R. Fluoro for C-Arm [facility] Imaging Services [address] [place] [address] O.R. Fluoro for C-Arm MR#: [id number] Acct: [id number] Name: OLGA STAFFORD Rep #: [id number] : 1950 F 75 From: Gregg Price PCP: Dr. Radha Rodas, DO Status: [facility] Study: O.R. Fluoro for C-Arm Date of Exam: 03/31/25 Exam# [id number] Ordering Dr: Alejandro Roy DO PROCEDURE: ERCP BILIARY/PANCREAS; O.R. FLUORO FOR C-ARM 03/31/2025 REASON FOR EXAM: ERCP TECHNIQUE: Procedure Code: RADERCP; RADORFL_C_ARM Modality: DX Procedure: ERCP BILIARY/PANCREAS; O.R. FLUORO FOR C-ARM Fluoroscopy time: 172.4 seconds. Dose: 24.16 mGy. COMPARISON: None. RAD/O.R. Fluoro for C-Arm IMPRESSION: Intraoperative fluoroscopy for ERCP. 10 fluoroscopic images were also obtained. Reading Location: [place] [address] CC: Dr. Radha Rodas DO; Alejandro Roy, Travograph Operator: Signed Normal [facility] Oncology Visit Reporton 01-31 Oncology Visit Report [facility] [address] [place] [address] OFFICE VISIT Date of Service: 02/10/25 1327 MR#: [id number] Acct: [id number] Name: OLGA STAFFORD Rep #: [id number] : 1950 From: Meet Santos MD Age/Sex: 74/F Location: [facility] Status: Signed HPI Subjective Date of Service [...] still getallergic reaction to certain foods. [facility] Medical History Wears glasses Post-menopausal Alcohol use [...] IgM 111 IgE 29 LORENZO M-Fabián Free [employer] LC, Quant Free Lambda LC, Quant Free [employer]/Lambda Ratio 10/14/24 02/03/25 14:04 08:17 WBC 4.5 [...] 102 IgE LORENZO M-Fabián Not Observed Free [employer] LC, Quant 43.2 H Free Lambda LC, Quant 46.9 H Free [employer]/Lambda Ratio 0.92 Exam Physical Exam Const alert, [...] Date _ (more content not included)... Normal [facility] LORENZO + Protein Elect, Serumon 02-07-2025 Albumin [Mass/Vol] 3.6 g/dL Normal 2.9-4.4 [facility] Comment on above: Order Comment: N Performed By: #### L 3000.0800, L3130.0010, L100.9950, L501.6710, L500.4050, L100.0100, L3100.3425, L101.9900, L503.0106 #### [facility] [address] [place], [place], [id number] Albumin/Globulin [Mass ratio] 1.3 {ratio} Normal 0.7-1.7 [facility] Comment on above: Order Comment: N Performed By: #### L 3000.0800, L3130.0010, L100.9950, L501.6710, L500.4050, L100.0100, L3100.3425, L101.9900, L503.0106 #### [facility] [address] [place], [address] EHSIS-2-VCAQ 0.2 g/dL Normal 0.0-0.4 [facility] Comment on above: Order Comment: N Performed By: #### L 3000.0800, L3130.0010, L100.9950, L501.6710, L500.4050, L100.0100, L3100.3425, L101.9900, L503.0106 #### [facility] [address] [place], [address] ESFJO-4-YPPR 0.6 g/dL Normal 0.4-1.0 [facility] Comment on above: Order Comment: N Performed By: #### L 3000.0800, L3130.0010, L100.9950, L501.6710, L500.4050, L100.0100, L3100.3425, L101.9900, L503.0106 #### [facility] [address] [place], [address] BETA GLOBULIN 0.9 g/dL Normal 0.7-1.3 [facility] Comment on above: Order Comment: N Performed By: #### L 3000.0800, L3130.0010, L100.9950, L501.6710, L500.4050, L100.0100, L3100.3425, L101.9900, L503.0106 #### [facility] [address] [place], [address] GAMMA GLOBULIN 1.4 g/dL Normal 0.4-1.8 [facility] Comment on above: Order Comment: N Performed By: #### L 3000.0800, L3130.0010, L100.9950, L501.6710, L500.4050, L100.0100, L3100.3425, L101.9900, L503.0106 #### [facility] [address] [place], [address] Globulin (S) [Mass/Vol] 3.0 g/dL Normal 2.2-3.9 [facility] Comment on above: Order Comment: N Performed By: #### L 3000.0800, L3130.0010, L100.9950, L501.6710, L500.4050, L100.0100, L3100.3425, L101.9900, L503.0106 #### [facility] [address] [place], [address] LORENZO RESULT,S Comment: Normal . [facility] Comment on above: Order Comment: N Result Comment: Pres ence of monoclonal protein is unclear at this time. Suggest repeat in 3 to 6 months if clinically indicated. Performed By: #### L 3000.0800, L3130.0010, L100.9950, L501.6710, L500.4050, L100.0100, L3100.3425, L101.9900, L503.0106 #### [facility] [address] [place], [address] IMMUNOGLOB A QN 168 mg/dL Normal 64-422 [facility] Comment on above: Order Comment: N Performed By: #### L 3000.0800, L3130.0010, L100.9950, L501.6710, L500.4050, L100.0100, L3100.3425, L101.9900, L503.0106 #### [facility] [address] [place], [address] IMMUNOGLOB G QN 1532 mg/dL Normal 586-1602 [facility] Comment on above: Order Comment: N Performed By: #### L 3000.0800, L3130.0010, L100.9950, L501.6710, L500.4050, L100.0100, L3100.3425, L101.9900, L503.0106 #### [facility] [address] [place], [place], [phone] (204) IMMUNOGLOB M QN 102 mg/dL Normal 26-217 [facility] Comment on above: Order Comment: N Performed By: #### L 3000.0800, L3130.0010, L100.9950, L501.6710, L500.4050, L100.0100, L3100.3425, L101.9900, L503.0106 #### [facility] [address] [place], [place], [phone] (740) M-Fabián Not Observed Normal Not Observed [facility] Comment on above: Order Comment: N Performed By: #### L 3000.0800, L3130.0010, L100.9950, L501.6710, L500.4050, L100.0100, L3100.3425, L101.9900, L503.0106 #### [facility] [address] [facility] [address] [place], [place], [phone] NOTE: Comment Normal . [facility] Comment on above: Order Comment: N Result Comment: Prot ein electrophoresis scan will follow via computer, mail, or barn manager delivery. Performed By: #### L 3000.0800, L3130.0010, L100.9950, L501.6710, L500.4050, L100.0100, L3100.3425, L101.9900, L503.0106 #### [facility] [address] [place], [place], [phone] (811) Protein [Mass/Vol] 6.6 g/dL Normal 6.0-8.5 [facility] Comment on above: Order Comment: N Performed By: #### L 3000.0800, L3130.0010, L100.9950, L501.6710, L500.4050, L100.0100, L3100.3425, L101.9900, L503.0106 #### [facility] [address] [facility] [place], [place], [phone] [employer] Lambda Light Chainson 02-07-2025 FR KAPPA LT CHN 43.2 mg/L Abnormal 3.3-19.4 [facility] Comment on above: Performed By: #### L 3000.0800, L3130.0010, L100.9950, L501.6710, L500.4050, L100.0100, L3100.3425, L101.9900, L503.0106 #### [facility] [address] [facility] [place], [address] FR LAMBDA LT CH 46.9 mg/L Abnormal 5.7-26.3 [facility] Comment on above: Performed By: #### L 3000.0800, L3130.0010, L100.9950, L501.6710, L500.4050, L100.0100, L3100.3425, L101.9900, L503.0106 #### [facility] [address] [facility] [place], [address] KAPPA/LAMBDA % 0.92 Normal 0.26-1.65 [facility] Comment on above: Result Comment: Perf ormed at: - [facility] [id number] Claim Inspector: Cristhian Nath PhD, Phone: [phone] Performed By: #### L 3000.0800, L3130.0010, L100.9950, L501.6710, L500.4050, L100.0100, L3100.3425, L101.9900, L503.0106 #### [facility] [address] [facility] [place], [place], [phone] Absolute lymphocyte countOrd ered By: Meet Santos on 02-03-2025 Lymphocytes Auto (Unsp spec) [#/Vol] 1.95 10*3/uL 0.83-4.51 [facility] Absolute neutrophil countOrd ered By: Meet Giangolivia on 02-03-2025 Neutrophils (Bld) [#/Vol] 1.7 10*3/uL Low 2.0-7.7 [facility] Albumin Elph [Mass/Vol]Order ed By: Meet Santos on 02-03-2025 Albumin [Mass/Vol] 3.6 g/dL 2.9-4.4 [facility] Anion gap in Serum or Plasma Ordered By: Meet Santos on 02-03-2025 Anion gap [Moles/Vol] 9 mmol/L 5-15 [facility] Automated lymphocyte count a s percentage of total leukocytesOrdered By: Meet Santos on 02-03-2025 Lymphocytes/100 WBC Auto (Unsp spec) 47.0 % High 19-41 [facility] BUN/creatinine ratioOrdered By: [facility] on 02-03-2025 Urea nitrogen/Creatinine [Mass ratio] 28.0 mg/mg High 10-20 [facility] Basophil percentageOrdered B y: Meet Santos on 02-03-2025 Basophils/100 WBC (Bld) 0.7 % 0-1 [facility] Bilirubin, totalOrdered By: Meet [facility] on 02-03-2025 Bilirubin [Mass/Vol] 0.32 mg/dL 0.00-1.30 [facility] CBC W/Diff, Automatedon Absolute Lymph 1.95 X10 3/uL Normal 0.83-4.51 [facility] Comment on above: Performed By: #### L 3000.0800, L3130.0010, L100.9950, L501.6710, L500.4050, L100.0100, L3100.3425, L101.9900, L503.0106 #### [facility] [place], [address] Absolute Neut 1.7 X10 3/uL Low 2.0-7.7 [facility] Comment on above: Performed By: #### L 3000.0800, L3130.0010, L100.9950, L501.6710, L500.4050, L100.0100, L3100.3425, L101.9900, L503.0106 #### [facility] [address] [facility] [place], [address] Basophils/100 WBC (Bld) 0.7 % Normal 0-1 [facility] Comment on above: Performed By: #### L 3000.0800, L3130.0010, L100.9950, L501.6710, L500.4050, L100.0100, L3100.3425, L101.9900, L503.0106 #### [facility] [address] [place], [address] ([address] Eosinophils/100 WBC (Bld) 1.2 % Normal 0-5 [facility] Comment on above: Performed By: #### L 3000.0800, L3130.0010, L100.9950, L501.6710, L500.4050, L100.0100, L3100.3425, L101.9900, L503.0106 #### [facility] [address] [facility] [place], [place], [phone] (608) Erythrocyte distribution width (RBC) [Ratio] 13.1 % Normal 11.6-14.6 [facility] Comment on above: Performed By: #### L 3000.0800, L3130.0010, L100.9950, L501.6710, L500.4050, L100.0100, L3100.3425, L101.9900, L503.0106 #### [facility] [address] [place], [place], [phone] ([address] Hematocrit (Bld) [Volume fraction] 38.2 % Normal 37-47 [facility] Comment on above: Performed By: #### L 3000.0800, L3130.0010, L100.9950, L501.6710, L500.4050, L100.0100, L3100.3425, L101.9900, L503.0106 #### [facility] [address] [place], [address] Hemoglobin (Bld) [Mass/Vol] 12.8 g/dL Normal 12.0-15.0 [facility] Comment on above: Performed By: #### L 3000.0800, L3130.0010, L100.9950, L501.6710, L500.4050, L100.0100, L3100.3425, L101.9900, L503.0106 #### [facility] [address] [place], [address] IG% 0.000 Normal 0.0-0.9 [facility] Comment on above: Result Comment: IG% - Immature Granulocytes (promyelocytes, myelocytes and metamyelocytes) > 1% indicates that a LEFT SHIFT is Present. Performed By: #### L 3000.0800, L3130.0010, L100.9950, L501.6710, L500.4050, L100.0100, L3100.3425, L101.9900, L503.0106 #### [facility] [address] [place], [address] Lymphocytes/100 WBC (Bld) 47.0 % High 19-41 [facility] Comment on above: Performed By: #### L 3000.0800, L3130.0010, L100.9950, L501.6710, L500.4050, L100.0100, L3100.3425, L101.9900, L503.0106 #### [facility] [address] [place], [address] MCH (RBC) [Entitic mass] 29.3 pg Normal 27.0-32.0 [facility] Comment on above: Performed By: #### L 3000.0800, L3130.0010, L100.9950, L501.6710, L500.4050, L100.0100, L3100.3425, L101.9900, L503.0106 #### [facility] [address] [place], [address] MCHC (RBC) [Mass/Vol] 33.5 g/dL Normal 32-36 [facility] Comment on above: Performed By: #### L 3000.0800, L3130.0010, L100.9950, L501.6710, L500.4050, L100.0100, L3100.3425, L101.9900, L503.0106 #### [facility] [address] [place], [address] MCV (RBC) [Entitic vol] 87.4 fL Normal 81-99 [facility] Comment on above: Performed By: #### L 3000.0800, L3130.0010, L100.9950, L501.6710, L500.4050, L100.0100, L3100.3425, L101.9900, L503.0106 #### [facility] [address] [place], [address] Monocytes/100 WBC (Bld) 9.4 % Normal 0-10 [facility] Comment on above: Performed By: #### L 3000.0800, L3130.0010, L100.9950, L501.6710, L500.4050, L100.0100, L3100.3425, L101.9900, L503.0106 #### [facility] [address] [place], [address] Neutrophils/100 WBC (Bld) 41.7 % Low 47-70 [facility] Comment on above: Performed By: #### L 3000.0800, L3130.0010, L100.9950, L501.6710, L500.4050, L100.0100, L3100.3425, L101.9900, L503.0106 #### [facility] [address] [place], [address] Nucleated RBC (Bld) [#/Vol] 0 10*3/uL Normal 0-5 [facility] Comment on above: Performed By: #### L 3000.0800, L3130.0010, L100.9950, L501.6710, L500.4050, L100.0100, L3100.3425, L101.9900, L503.0106 #### [facility] [address] [place], [place], [phone] (720) Platelet mean volume (Bld) [Entitic vol] 9.0 fL Normal 6.2-12.0 [facility] Comment on above: Performed By: #### L 3000.0800, L3130.0010, L100.9950, L501.6710, L500.4050, L100.0100, L3100.3425, L101.9900, L503.0106 #### [facility] [address] [place], [address] (228) Platelets (Bld) [#/Vol] 200 10*3/uL Normal 150-450 [facility] Comment on above: Performed By: #### L 3000.0800, L3130.0010, L100.9950, L501.6710, L500.4050, L100.0100, L3100.3425, L101.9900, L503.0106 #### [facility] [address] [place], [address] (230) RBC (Bld) [#/Vol] 4.37 10*6/uL Normal 4.2-5.4 [facility] Comment on above: Performed By: #### L 3000.0800, L3130.0010, L100.9950, L501.6710, L500.4050, L100.0100, L3100.3425, L101.9900, L503.0106 #### [facility] [address] [place], [address] (439) RDW SD 42.1 fl Normal 35.1-43.9 [facility] Comment on above: Performed By: #### L 3000.0800, L3130.0010, L100.9950, L501.6710, L500.4050, L100.0100, L3100.3425, L101.9900, L503.0106 #### [facility] [address] [place], [address] WBC (Bld) [#/Vol] 4.2 10*3/uL Low 4.4-11.0 [facility] Comment on above: Performed By: #### L 3000.0800, L3130.0010, L100.9950, L501.6710, L500.4050, L100.0100, L3100.3425, L101.9900, L503.0106 #### [facility] [address] [place], [place], [phone] (449) Carbon dioxide, total [Moles /volume] in Central venous bloodOrdered By: Meet Santos on 02-03-2025 CO2 [Moles/Vol] 25.6 mmol/L 21.0-32.0 [facility] Chloride assayOrdered By: Sherlyn Santos on 02-03-2025 Chloride [Moles/Vol] 107 mmol/L 98-108 [facility] Comprehensive Metabolic Prof ilon 02-03-2025 Albumin [Mass/Vol] 4.1 g/dL Normal 3.4-4.8 [facility] Comment on above: Performed By: #### L 3000.0800, L3130.0010, L100.9950, L501.6710, L500.4050, L100.0100, L3100.3425, L101.9900, L503.0106 #### [facility] [address] [place], [address] Albumin/Globulin [Mass ratio] 1.4 {ratio} Normal 0.9-2.4 [facility] Comment on above: Performed By: #### L 3000.0800, L3130.0010, L100.9950, L501.6710, L500.4050, L100.0100, L3100.3425, L101.9900, L503.0106 #### [facility] [address] [place], [address] ALK PHOS 74 U/L Normal 35-104 [facility] Comment on above: Performed By: #### L 3000.0800, L3130.0010, L100.9950, L501.6710, L500.4050, L100.0100, L3100.3425, L101.9900, L503.0106 #### [facility] [address] [place], [place], [phone] (213) ALT [Catalytic activity/Vol] 24 U/L Normal <=34 [facility] Comment on above: Performed By: #### L 3000.0800, L3130.0010, L100.9950, L501.6710, L500.4050, L100.0100, L3100.3425, L101.9900, L503.0106 #### [facility] [address] [place], [place], [phone] (541) AST [Catalytic activity/Vol] 32 U/L Normal <=31 [facility] Comment on above: Performed By: #### L 3000.0800, L3130.0010, L100.9950, L501.6710, L500.4050, L100.0100, L3100.3425, L101.9900, L503.0106 #### [facility] [address] [place], [address] Bilirubin [Mass/Vol] 0.32 mg/dL Normal 0.00-1.30 [facility] Comment on above: Performed By: #### L 3000.0800, L3130.0010, L100.9950, L501.6710, L500.4050, L100.0100, L3100.3425, L101.9900, L503.0106 #### [facility] [address] [place], [address] BUN/CRE 28.0 RATIO High 10-20 [facility] Comment on above: Performed By: #### L 3000.0800, L3130.0010, L100.9950, L501.6710, L500.4050, L100.0100, L3100.3425, L101.9900, L503.0106 #### [facility] [address] [place], [address] Calcium [Mass/Vol] 9.1 mg/dL Normal 7.6-11.0 [facility] Comment on above: Performed By: #### L 3000.0800, L3130.0010, L100.9950, L501.6710, L500.4050, L100.0100, L3100.3425, L101.9900, L503.0106 #### [facility] [address] [place], [address] Chloride [Moles/Vol] 107 mmol/L Normal 98-108 [facility] Comment on above: Performed By: #### L 3000.0800, L3130.0010, L100.9950, L501.6710, L500.4050, L100.0100, L3100.3425, L101.9900, L503.0106 #### [facility] [address] [place], [address] CO2 [Moles/Vol] 25.6 mmol/L Normal 21.0-32.0 [facility] Comment on above: Performed By: #### L 3000.0800, L3130.0010, L100.9950, L501.6710, L500.4050, L100.0100, L3100.3425, L101.9900, L503.0106 #### [facility] [address] [place], [address] Creatinine [Mass/Vol] 0.75 mg/dL Normal 0.70-1.20 [facility] Comment on above: Performed By: #### L 3000.0800, L3130.0010, L100.9950, L501.6710, L500.4050, L100.0100, L3100.3425, L101.9900, L503.0106 #### [facility] [address] [place], [address] ECRCL 48.06 ml/min Low 50-250 [facility] Comment on above: Performed By: #### L 3000.0800, L3130.0010, L100.9950, L501.6710, L500.4050, L100.0100, L3100.3425, L101.9900, L503.0106 #### [facility] [address] [place], [address] GAP 9 Normal 5-15 [facility] Comment on above: Performed By: #### L 3000.0800, L3130.0010, L100.9950, L501.6710, L500.4050, L100.0100, L3100.3425, L101.9900, L503.0106 #### [facility] [address] [place], [place], [phone] (441) GFR/1.73 sq M.predicted among non-blacks MDRD (S/P/Bld) [Vol rate/Area] 82 mL/min/{1.73_m2} Normal >60 [facility] Comment on above: Result Comment: mL/m in/1.73m2 CKD-EPI Creatinine Equation (2020) Performed By: #### L 3000.0800, L3130.0010, L100.9950, L501.6710, L500.4050, L100.0100, L3100.3425, L101.9900, L503.0106 #### [facility] [address] [place], [place], [phone] (751) Globulin (S) [Mass/Vol] 2.9 g/dL Normal 2.2-4.2 [facility] Comment on above: Performed By: #### L 3000.0800, L3130.0010, L100.9950, L501.6710, L500.4050, L100.0100, L3100.3425, L101.9900, L503.0106 #### [facility] [address] [place], [address] Glucose [Mass/Vol] 82 mg/dL Normal 70-99 [facility] Comment on above: Performed By: #### L 3000.0800, L3130.0010, L100.9950, L501.6710, L500.4050, L100.0100, L3100.3425, L101.9900, L503.0106 #### [facility] [address] [place], [address] Potassium [Moles/Vol] 4.4 mmol/L Normal 3.3-5.1 [facility] Comment on above: Performed By: #### L 3000.0800, L3130.0010, L100.9950, L501.6710, L500.4050, L100.0100, L3100.3425, L101.9900, L503.0106 #### [facility] [address] [place], [address] Sodium [Moles/Vol] 142 mmol/L Normal 133-145 [facility] Comment on above: Performed By: #### L 3000.0800, L3130.0010, L100.9950, L501.6710, L500.4050, L100.0100, L3100.3425, L101.9900, L503.0106 #### [facility] [address] [place], [address] T PROT 7.0 g/dL Normal 5.9-8.4 [facility] Comment on above: Performed By: #### L 3000.0800, L3130.0010, L100.9950, L501.6710, L500.4050, L100.0100, L3100.3425, L101.9900, L503.0106 #### [facility] [address] [place], [place], [id number] Urea nitrogen [Mass/Vol] 21 mg/dL High 4-19 [facility] Comment on above: Performed By: #### L 3000.0800, L3130.0010, L100.9950, L501.6710, L500.4050, L100.0100, L3100.3425, L101.9900, L503.0106 #### [facility] [address] [facility] [place], [place], [phone] Eosinophil percentageOrdered By: Meet Santos on 02-03-2025 Eosinophils/100 WBC (Bld) 1.2 % 0-5 [facility] Erythrocyte distribution wid th ratioOrdered By: Meet Santos on 02-03-2025 Erythrocyte distribution width (RBC) [Ratio] 13.1 % 11.6-14.6 [facility] Erythrocyte distribution wid th standard deviationOrdered By: [facility] Hospitalol[facility] on 02-03-2025 Erythrocyte distribution width (RBC) [Ratio] 42.1 fl 35.1-43.9 [facility] Glomerular filtration rate ( GFR) estimation/1.73 sq m using serum, plasma, or whole bOrdered By: Meet Santos on 02-03-2025 GFR/1.73 sq M.predicted among non-blacks MDRD (S/P/Bld) [Vol rate/Area] 82 mL/min/{1.73_m2} >60 [facility] Comment on above: mL/min/1.73m2 CKD-EP I Creatinine Equation (2020) Hematocrit Auto (Bld) [Volum e fraction]Ordered By: Meet Santos on 02-03-2025 Hematocrit (Bld) [Volume fraction] 38.2 % 37-47 [facility] Hemoglobin measurementOrdere d By: Meet Santos on 02-03-2025 Hemoglobin (Bld) [Mass/Vol] 12.8 g/dL 12.0-15.0 [facility] Immature granulocytes/100 WB C Auto (Bld)Ordered By: Meet Santos on 02-03-2025 Immature granulocytes/100 WBC (Bld) 0.000 % 0.0-0.9 [facility] Comment on above: IG% - Immature Granu locytes (promyelocytes, myelocytes and metamyelocytes) > 1% indicates that a LEFT SHIFT is Present. Interpretation of serum or p lasma protein pattern by immunofixation (narrative resultOrdered By: Meet Santos on 02-03-2025 Protein Fractions Immunofixation Issac [Interp] Not Observed g/dL Not Observed [facility] LDHon 02-03-2025 LDH 193 U/L Normal 84-246 [facility] Comment on above: Order Comment: 1 Performed By: #### L 3000.0800, L3130.0010, L100.9950, L501.6710, L500.4050, L100.0100, L3100.3425, L101.9900, L503.0106 #### [facility] [address] [place] [address], [address] Laboratory - Chemistry and C hemistry - challengeOrdered By: Meet Santos on 02-03-2025 AST [Catalytic activity/Vol] 32 U/L <32 [facility] Lactate dehydrogenase (LDH) measurementOrdered By: Meet Santos on 02-03-2025 LDH [Catalytic activity/Vol] 193 U/L 84-246 [facility] MCV (mean corpuscular volume ) determinationOrdered By: Meet Santos on 02-03-2025 MCV (RBC) [Entitic vol] 87.4 fL 81-99 [facility] Mean corpuscular hemoglobin (MCH) determinationOrdered By: Meet Santos on 02-03-2025 MCH (RBC) [Entitic mass] 29.3 pg 27.0-32.0 [facility] Mean corpuscular hemoglobin concentration (MCHC) determinationOrdered By: Meet Santos on 02-03-2025 MCHC (RBC) [Mass/Vol] 33.5 g/dL 32-36 [facility] Mean platelet volume determi nationOrdered By: Meet Santos on 02-03-2025 Platelet mean volume (Bld) [Entitic vol] 9.0 fL 6.2-12.0 [facility] Monocyte percentageOrdered B y: Meet Santos on 02-03-2025 Monocytes/100 WBC (Bld) 9.4 % 0-10 [facility] Neutrophil percentageOrdered By: Meet Santos on 02-03-2025 Neutrophils/100 WBC (Bld) 41.7 % Low 47-70 [facility] No Panel InformationOrdered By: Meet Santos on 02-03-2025 Addendum Document Comment . [facility] Comment on above: Protein electrophore sis scan will follow via computer,mail, or barn manager delivery. Nucleated red blood cell per centageOrdered By: Meet Santos on 02-03-2025 Nucleated RBC/100 WBC (Bld) [Ratio] 0 % 0-5 [facility] Platelet countOrdered By: Sherlyn Santos on 02-03-2025 Platelets (Bld) [#/Vol] 200 10*3/uL 150-450 [facility] Potassium measurement (mass/ volume)Ordered By: Meet Santos on 02-03-2025 Potassium (Unsp spec) [Mass/Vol] 4.4 mmol/L 3.3-5.1 [facility] RBC Auto (Bld) [#/Vol]Ordere d By: Meet Santos on 02-03-2025 RBC (Bld) [#/Vol] 4.37 10*6/uL 4.2-5.4 [facility] Serum creatinine measurement (mass/volume)Ordered By: Meet Santos on 02-03-2025 Creatinine [Mass/Vol] 0.75 mg/dL 0.70-1.20 [facility] Serum globulin measurement ( mass/volume)Ordered By: Meet Santos on 02-03-2025 Globulin (S) [Mass/Vol] 3.0 g/dL 2.2-3.9 [facility] Serum glucose measurement (m ass/volume)Ordered By: Meet Santos on 02-03-2025 Glucose [Mass/Vol] 82 mg/dL 70-99 [facility] Serum immunoglobulin kappa l ight chains/immunoglobulin lambda light chains mass ratioOrdered By: Meet Santos on 02-03-2025 Immunoglobulin light chains.kappa/Immunoglobul in light chains.lambda (S) [Mass ratio] 0.92 0.26-1.65 [facility] Comment on above: Performed at: [address] [id number] Director: Cristhian Nath PhD, Phone: [phone] Serum or plasma IgA measurem ent (mass/volume)Ordered By: Meet Santos on 02-03-2025 IgA [Mass/Vol] 168 mg/dL 64-422 [facility] Serum or plasma IgG measurem ent (mass/volume)Ordered By: Meet Santos on 02-03-2025 IgG [Mass/Vol] 1532 mg/dL 586-1602 [facility] Serum or plasma alanine hoff otransferase (ALT) measurementOrdered By: Meet Santos on 02-03-2025 ALT [Catalytic activity/Vol] 24 U/L <35 [facility] Serum or plasma albumin benito urement (mass/volume)Ordered By: Meet Santos on 02-03-2025 Albumin [Mass/Vol] 4.1 g/dL 3.4-4.8 [facility] Serum or plasma albumin/glob ulin mass ratioOrdered By: Meet Santos on 02-03-2025 Albumin/Globulin [Mass ratio] 1.4 {ratio} 0.9-2.4 [facility] Serum or plasma alkaline ruiz sphatase measurementOrdered By: Meet Santos on 02-03-2025 ALP [Catalytic activity/Vol] 74 U/L 35-104 [facility] Serum or plasma alpha 1 glob ulin measurement by electrophoresis (mass/volume)Ordered By: Meet Santos on 02-03-2025 Alpha 1 globulin Elph [Mass/Vol] 0.2 g/dL 0.0-0.4 [facility] Alpha 1 globulin Elph [Mass/Vol] 0.6 g/dL 0.4-1.0 [facility] Serum or plasma beta globuli n measurement by electrophoresis (mass/volume)Ordered By: Meet Santos on 02-03-2025 Beta globulin Elph [Mass/Vol] 0.9 g/dL 0.7-1.3 [facility] Serum or plasma calcium benito urement (mass/volume)Ordered By: Meet Santos on 02-03-2025 Calcium [Mass/Vol] 9.1 mg/dL 7.6-11.0 [facility] Serum or plasma gamma globul in measurement by electrophoresis (mass/volume)Ordered By: Meet Santos on 02-03-2025 Gamma globulin Elph [Mass/Vol] 1.4 g/dL 0.4-1.8 [facility] Serum or plasma immunoelectr ophoresis interpretation (nominal result)Ordered By: Meet Santos on 02-03-2025 Interpretation IEP [Interp] Comment: . [facility] Comment on above: Presence of monoclon al protein is unclear at this time. Suggestrepeat in 3 to 6 months if clinically indicated. Serum or plasma immunoglobul in kappa light chains measurement (mass/volume)Ordered By: Meet Santos on 02-03-2025 Immunoglobulin light chains.kappa [Mass/Vol] 43.2 mg/L High 3.3-19.4 [facility] Serum or plasma protein benito urement (mass/volume)Ordered By: Meet Santos on 02-03-2025 Protein [Mass/Vol] 6.6 g/dL 6.0-8.5 [facility] Serum or plasma urea nitroge n measurement (mass/volume)Ordered By: Meet Santos on 02-03-2025 Urea nitrogen [Mass/Vol] 21 mg/dL High 4-19 [facility] Sodium levelOrdered By: Ramakrishna Santos on 02-03-2025 Sodium [Moles/Vol] 142 mmol/L 133-145 [facility] Total proteinOrdered By: Kevin Santos on 02-03-2025 Protein [Mass/Vol] 7.0 g/dL 5.9-8.4 [facility] White blood cell (WBC) count Ordered By: Meet Santos on 02-03-2025 WBC (Bld) [#/Vol] 4.2 10*3/uL Low 4.4-11.0 [facility] Gastroenterology Visit Repor ton 01-27-2025 Gastroenterology Visit Report [facility] Gastroenterology [address] [place] [address] OFFICE VISIT Date of Service: 01/27/25 MR#: [id number] Acct: [id number] Name: OLGA STAFFORD Rep #: [id number] : 1950 Provider: Alejandro Roy DO Age/Sex: 74/F Location[place] [facility] Status: Signed with Addenda ADDENDUM by Alejandro [...] or phobias, making its application to a bvr-LvZ-jgtoteqp condition like FPIES potentially less effective and [...] diagnosis. * Allergy/Immunology consultation:???Collabora te with an food adviser to review the FPIES diagnosis and determine [...] diet with adequate hydration. * Medication:???Suggest an jecl-xck-akwkdjj laxative as needed. * Addressing psychosocial factors: [...] of dean (more content not included)... Normal [facility] Magnetic resonance imaging r eportOrdered By: Johnathan Stephens on 12-02-2024 Study report [facility] Imaging Services [address] [place] [address] MRI Abd WITH and W/O Contrast MR#: [id number] Acct: [id number] Name: OLGA STAFFORD Rep #: [id number] : 1950 F 74 From: Margret Stephens MD PCP: Dr. Radha Rodas DO Status: REG CLI Study:MRI Abd WITH and W/O Contrast Date of E xam: 12/01/24 Exam# [id number] Ordering Dr: Mathieu Roy DO PROCEDURE: MRI [...] 3. Additional description as above. Reading Location: [facility] CC: Dr. Radha Rodas DO; Alejandro Roy DO ~ Travograph Operator: Signed [facility] MRI Abd WITH and W/O Contras ton 12-01-2024 MRI Abd WITH and W/O Contrast [facility] Imaging Services [address] [place] [address] MRI Abd WITH and W/O Contrast MR#: [id number] Acct: [id number] Name: OLGA STAFFORD Rep #: [id number] : 1950 F 74 From: Johnathan Stephens MD PCP: Dr. Radha Rodas DO Status: REG CLI Study: MRI Abd WITH and W/O Contrast Date of Exam: Exam# [id number] Ordering Dr: Alejandro Roy DO PROCEDURE: MRI [...] 3. Additional description as above. Reading Location: [id number] CC: Dr. Radha Rodas DO; Alejandro Roy DO Travograph Operator: Signed Normal [facility] EGD Reporton 11-17-2024 EGD Report [facility] Medical Records Department [address] [place] [address] EGD Report MR#: [id number] Acct: [id number] Name: OLGA STAFFORD Rep #: [id number] : 1950 74 From: Alejandro Roy DO PCP: Dr. Radha Rodas DO Status:REG [facility] Patient Name: Olga Stafford Procedure Date: 11/17/2024 6:09 AM Date of : 1950 Age: 74 Procedure: Upper GI endoscopy Indications: Epigastric abdominal pain, Functional Dyspepsia, Failure to respond to medical treatment Providers: DO Elvira Muse MD: Radha Rodas Medicines: Monitored Anesthesia Care [...] pathology results. Procedure Code(s): --- Professional --- 67133, Small intestinal endoscopy, enteroscopy beyond second portion of duodenum, not including ileum; with biopsy, single or multiple CPT copyright 2021 [employer]. All rights reserved. The codes documented in this report are preliminary and upon assistant education director review may be revised to meet current compliance requirements. Alejandro Roy DO 11/17/2024 7:06:53 AM This report has been signed electronically. Number of Addenda: 0 Note Initiated On: 11/17/2024 6:09 AM 11/17/24706 Date Alejandro Roy DO Cosigner Signature: Date (if indicated) CC: Dr. Radha Rodas DO; Alejandro Roy DO Date Dictated: 11/17/24608 Date Transcribed: Travograph Operator: TRENT Signed Normal [facility] Immunohistochemical Stainson 11-17-2024 Immunohistochemical Stains Patient Age/Sex Location Account Attending Physician OLGA STAFFORD 74/F EN [id number] Aleajndro Roy DO Specimen: [id number] Received: 11/17/24 Status: PATI Garcia Num: [id number] Spec Type: EGD BIOPSY Subm Dr: Alejandro Roy DO HEADER OPERATION: EGD with biopsy PRE-OP [...] labeled with the patient's name and designated "Duodenum biopsy." The specimen consists of two irregular fragments [...] the patient's name and designated Random esophagus biopsy." The specimen consists of three irregular fragments of light hoyos soft tissue that in aggregate measure <0.1 to 0.5 cm. The specimen is totally submitted in one cassette. Neto 11/17/2024 [facility]:[id number] Patient Age/Sex Location Account Attending Physician OLGA STAFFORD 74/F EN [id number] Roy, DO Signed (signature on file) Dr. Inga Pnatoja MD 11/23/24 0845 Normal [facility] Comment on above: Performed By: #### L 3000.0800, L3130.0010, L100.9950, L501.6710, L500.4050, L100.0100, L3100.3425, L101.9900, L503.0106 #### [facility] [address] [facility] [place], [address] MR/POSTOP.ANEmarcin 11-17-2024 MR/POSTOP.[facility] Medical Records Department [address] [place] [address] Anesthesia Postop Eval I 11/17/24 0711 MR#: [id number] Acct: [id number] Name: OLGA STAFFORD Rep #: [id number] : 1950 74 From: Tomasz aHgan PCP: Dr. Radha Rodas, DO Status:REG SDC Y Race: C Location: [place] [address] Anesthesia: Postop Eval I Current Vital Signs [...] Anesthesia document: Postop Eval 1 completed: Yes 11/17/24 0712 Date Tomasz Das Signature: Date CC: Signed Normal [facility] MR/[id number] 11-17-2024 MR/POSTOPAN2 [facility] Medical Records Department [address] [place] [address] Anesthesia Postop Eval II 11/17/24 1009 MR#: [id number] Acct: [id number] Name: OLGA STAFFORD Rep #: [id number] : 1950 74 From: Nadine Matias CRNA PCP: Dr. Radha Rodas, DO Status:[facility] Y Race: C Location: EN Anesthesia Postop [...] Vomiting: No 11/17/24 1010 Date Nadine Matias CRNA Cosigner Signature: Date CC: Signed Normal [facility] Hepatitis B/C Profile VIIIon 10-26-2024 HEPATITIS INTER Normal [facility] Comment on above: Result Comment: TEST RESULTS [...] infection (most common); false- positive anti-HBc (susceptible); "low-level" chronic infection"; resolving acute infection. HCV Ab Non Reactive Non Reactive Interpretation: Not infected with HCV unless early or acute infection is suspected (which may be delayed in an immunocompromised individual), or other evidence exists to indicate HCV infection. TESTING PERFORMED AT [facility]. ORIGINAL REPORT ON FILE IN LAB CONTAINS ADDITIONAL TEST SITE INFORMATION. Performed By: #### L 3000.0800, L3130.0010, L100.9950, L501.6710, L500.4050, L100.0100, L3100.3425, L101.9900, L503.0106 #### [facility] [address] [place], [address] LORENZO + Protein Elect, Serumon 10-26-2024 PROTEIN,TOTAL Normal [facility] Comment on above: Order Comment: N Result Comment: TEST RESULTS LIMITS LORENZO and PE, Serum Immunoglobulin G, Qn, Serum 1622 High mg/dL 586-1602 Immunoglobulin A, Qn, Serum 172 mg/dL 87-352 Immunoglobulin M, Qn, Serum 106 mg/dL 26-217 Protein, Total 7.2 g/dL 6.0-8.5 Albumin 3.9 g/dL 2.9-4.4 Fspqe-6-Ayjnlovt 0.2 g/dL 0.0-0.4 Wlzvu-5-Tbsgebaf 0.6 g/dL 0.4-1.0 Beta Globulin 0.9 g/dL 0.7-1.3 Gamma Globulin 1.6 g/dL 0.4-1.8 M-Fabián Not Observed g/dL Not Observed Globulin, Total 3.3 g/dL 2.2-3.9 A/G Ratio 1.2 0.7-1.7 Immunofixation Result, Serum Comment: Presence of monoclonal protein is unclear at this time. Suggest repeat in 3 to 6 months if clinically indicated. Please note: Protein electrophoresis scan will follow via computer, mail, or barn manager delivery. TESTING PERFORMED AT [facility]. ORIGINAL REPORT ON FILE IN LAB CONTAINS ADDITIONAL TEST SITE INFORMATION. Performed By: #### L 3000.0800, L3130.0010, L100.9950, L501.6710, L500.4050, L100.0100, L3100.3425, L101.9900, L503.0106 ####[facility] [address] [place], [address] [employer] Lambda Light Chainson 10-26-2024 FR KAPPA LT CHN Normal [facility] Comment on above: Result Comment: TEST RESULTS LIMITS Free K+L Lt Chains,Qn,S Free [employer] Lt Chains,S 33.3 High mg/L 3.3-19.4 Free Lambda Lt Chains,S 45.0 High mg/L 5.7-26.3 [employer]/Lambda Ratio,S 0.96 0.26-1.65 TESTING PERFORMED AT [facility]. ORIGINAL REPORT ON FILE IN LAB CONTAINS ADDITIONAL TEST SITE INFORMATION. Performed By: #### L 3000.0800, L3130.0010, L100.9950, L501.6710, L500.4050, L100.0100, L3100.3425, L101.9900, L503.0106 ####[facility] [address] [place], [address] Oncology Visit Reporton 10-01 Oncology Visit Report [facility] [address] [place] [address] OFFICE VISIT Date of Service: 10/21/24 1401 MR#: [id number] Acct: [id number] Name: OLGA STAFFORD Rep #: [id number] : 1950 From: Meet Santos MD Age/Sex: 74/F Location: [facility] [place] Status: Signed HPI Subjective Date of Service 10/21/24 Chief Complaint F/u for High IgG level. History of Present Illness 74-year-old woman was found to have high IgG level and referred for further evaluation. She denies weight loss, fever, night sweats or pain. Had repeat blood work/Skeletal survey and comes for follow up. [facility] Medical History (Updated 10/21/24 @ 17:18 by [...] Hives Medications ???Medication ???Instructions ???Recorded ???Confirmed ???Type gsilidxu-wvp-brfr-FA-Ca carb-vit K 1 tab PO DAILY 03/25/19 [...] associated wi (more content not included)... Normal [facility] Gastroenterology Visit Repor ton 10-18-2024 Gastroenterology Visit Report [facility] Gastroenterology [address] [place] [address] OFFICE VISIT Date of Service: 10/18/24 MR#: [id number] Acct: [id number] Name: OLGA STAFFORD Rep #: [id number] : 1950 Provider: Alejandro Roy DO Age/Sex: 74/F Location[place] [facility] [place] Status: Signed Intake Vital Signs 01/30/24 06:11 08/26/24 15:08 Height 5 ft 2 in 5 ft 2 in Intake Visit Reasons: 3 M FU Allergies Penicillins Allergy (Verified 08/26/24 15:04) Hives Medications ???Medication ???Instructions ???Recorded ???Confirmed ???Type wmwzhdzr-geq-azva-FA-Ca carb-vit K 1 tab PO DAILY 03/25/19 [...] she underwent imaging by her PCP at [facility] that showed a large amount of stool and delayed gastric emptying on a gastric emptying study. From 2013 and 2021 she had random bouts of vomiting probably eating types of foods such as, chickpeas, fish, pepitas, black beans, pecans and walnuts. Her treatment up until 2021 was food avoidance. In July 2021 she had saw an food adviser at previous clinic and was diagnosed with food protein induced enterocolitis syndrome. Treatment was recommended In May 2024 she had breast spinach salad and had the same reaction. Up until that time avoiding those other foods that cause the problem was successful. However because of this new episode she came in for consultation. Referred to hematology for elevated IgG levels US and elastography 4.. hepatic measurement 17cm with fatty infiltration, stiffness measures 6.8kPa OV 5.19.25 pt reports that she has not eaten any foods that have caused an episode, but states that she is feeling "discouraged" with not having any answers or treatment [...] Psychiatric: Positive (more content not included)... Normal [facility] Absolute lymphocyte countOrd ered By: Meet Santos on 10-14-2024 Lymphocytes Auto (Unsp spec) [#/Vol] 2.53 10*3/uL 0.83-4.51 [facility] Absolute neutrophil countOrd ered By: Meet Giangolivia on 10-14-2024 Neutrophils (Bld) [#/Vol] 1.5 10*3/uL Low 2.0-7.7 [facility] Albumin Elph [Mass/Vol]Order ed By: Meet Giangolivia on 10-14-2024 Albumin [Mass/Vol] Not Reportable [facility] Anion gap in Serum or Plasma Ordered By: Meet Santos on 10-14-2024 Anion gap [Moles/Vol] 9 mmol/L 10-14 [facility] Automated lymphocyte count a s percentage of total leukocytesOrdered By: Meet [facility] on 10-14-2024 Lymphocytes/100 WBC Auto (Unsp spec) 56.3 % High 19-41 [facility] BUN/creatinine ratioOrdered By: [facility] on 10-14-2024 Urea nitrogen/Creatinine [Mass ratio] 23.1 mg/mg High 10-20 [facility] Basophil percentageOrdered B y: Meet Santos on 10-14-2024 Basophils/100 WBC (Bld) 1.1 % High 0-1 [facility] Bilirubin, totalOrdered By: [facility] Bilirubin [Mass/Vol] 0.43 mg/dL 0.00-1.30 [facility] CBC W/Diff, Automatedon 09-30 Absolute Lymph 2.53 X10 3/uL Normal 0.83-4.51 [facility] Comment on above: Performed By: #### L 3000.0800, L3130.0010, L100.9950, L501.6710, L500.4050, L100.0100, L3100.3425, L101.9900, L503.0106 #### [facility] [address] [place], [place], [id number] Absolute Neut 1.5 X10 3/uL Low 2.0-7.7 [facility] Comment on above: Performed By: #### L 3000.0800, L3130.0010, L100.9950, L501.6710, L500.4050, L100.0100, L3100.3425, L101.9900, L503.0106 #### [facility] [address] [place], [address] Basophils/100 WBC (Bld) 1.1 % High 0-1 [facility] Comment on above: Performed By: #### L 3000.0800, L3130.0010, L100.9950, L501.6710, L500.4050, L100.0100, L3100.3425, L101.9900, L503.0106 #### [facility] [address] [place], [address] Eosinophils/100 WBC (Bld) 0.4 % Normal 0-5 [facility] Comment on above: Performed By: #### L 3000.0800, L3130.0010, L100.9950, L501.6710, L500.4050, L100.0100, L3100.3425, L101.9900, L503.0106 #### [facility] [address] [place], [address] Erythrocyte distribution width (RBC) [Ratio] 13.4 % Normal 11.6-14.6 [facility] Comment on above: Performed By: #### L 3000.0800, L3130.0010, L100.9950, L501.6710, L500.4050, L100.0100, L3100.3425, L101.9900, L503.0106 #### [facility] [address] [place], [address] Hematocrit (Bld) [Volume fraction] 37.4 % Normal 37-47 [facility] Comment on above: Performed By: #### L 3000.0800, L3130.0010, L100.9950, L501.6710, L500.4050, L100.0100, L3100.3425, L101.9900, L503.0106 #### [facility] [address] [place], [address] Hemoglobin (Bld) [Mass/Vol] 12.8 g/dL Normal 12.0-15.0 [facility] Comment on above: Performed By: #### L 3000.0800, L3130.0010, L100.9950, L501.6710, L500.4050, L100.0100, L3100.3425, L101.9900, L503.0106 #### [facility] [address] [place], [address] IG% 0.000 Normal 0.0-0.9 [facility] Comment on above: Result Comment: IG% - Immature Granulocytes (promyelocytes, myelocytes and metamyelocytes) > 1% indicates that a LEFT SHIFT is Present. Performed By: #### L 3000.0800, L3130.0010, L100.9950, L501.6710, L500.4050, L100.0100, L3100.3425, L101.9900, L503.0106 #### [facility] [address] [place], [address] Lymphocytes/100 WBC (Bld) 56.3 % High 19-41 [facility] Comment on above: Performed By: #### L 3000.0800, L3130.0010, L100.9950, L501.6710, L500.4050, L100.0100, L3100.3425, L101.9900, L503.0106 #### [facility] [address] [place], [address] MCH (RBC) [Entitic mass] 29.4 pg Normal 27.0-32.0 [facility] Comment on above: Performed By: #### L 3000.0800, L3130.0010, L100.9950, L501.6710, L500.4050, L100.0100, L3100.3425, L101.9900, L503.0106 #### [facility] [address] [place], [address] MCHC (RBC) [Mass/Vol] 34.2 g/dL Normal 32-36 [facility] Comment on above: Performed By: #### L 3000.0800, L3130.0010, L100.9950, L501.6710, L500.4050, L100.0100, L3100.3425, L101.9900, L503.0106 #### [facility] [address] [place], [address] MCV (RBC) [Entitic vol] 86.0 fL Normal 81-99 [facility] Comment on above: Performed By: #### L 3000.0800, L3130.0010, L100.9950, L501.6710, L500.4050, L100.0100, L3100.3425, L101.9900, L503.0106 #### [facility] [address] [place], [address] Monocytes/100 WBC (Bld) 8.0 % Normal 0-10 [facility] Comment on above: Performed By: #### L 3000.0800, L3130.0010, L100.9950, L501.6710, L500.4050, L100.0100, L3100.3425, L101.9900, L503.0106 #### [facility] [address] [place], [address] Neutrophils/100 WBC (Bld) 34.2 % Low 47-70 [facility] Comment on above: Performed By: #### L 3000.0800, L3130.0010, L100.9950, L501.6710, L500.4050, L100.0100, L3100.3425, L101.9900, L503.0106 #### [facility] [address] [place], [address] Nucleated RBC (Bld) [#/Vol] 0 10*3/uL Normal 0-5 [facility] Comment on above: Performed By: #### L 3000.0800, L3130.0010, L100.9950, L501.6710, L500.4050, L100.0100, L3100.3425, L101.9900, L503.0106 #### [facility] [address] [place], [address] Platelet mean volume (Bld) [Entitic vol] 9.0 fL Normal 6.2-12.0 [facility] Comment on above: Performed By: #### L 3000.0800, L3130.0010, L100.9950, L501.6710, L500.4050, L100.0100, L3100.3425, L101.9900, L503.0106 #### [facility] [address] [place], [place], [phone] (824) Platelets (Bld) [#/Vol] 174 10*3/uL Normal 150-450 [facility] Comment on above: Performed By: #### L 3000.0800, L3130.0010, L100.9950, L501.6710, L500.4050, L100.0100, L3100.3425, L101.9900, L503.0106 #### [facility] [address] [place], [place], [phone] (718) RBC (Bld) [#/Vol] 4.35 10*6/uL Normal 4.2-5.4 [facility] Comment on above: Performed By: #### L 3000.0800, L3130.0010, L100.9950, L501.6710, L500.4050, L100.0100, L3100.3425, L101.9900, L503.0106 #### [facility] [address] [place], [address] RDW SD 42.3 fl Normal 35.1-43.9 [facility] Comment on above: Performed By: #### L 3000.0800, L3130.0010, L100.9950, L501.6710, L500.4050, L100.0100, L3100.3425, L101.9900, L503.0106 #### [facility] [address] [facility] [place], [place], [phone] WBC (Bld) [#/Vol] 4.5 10*3/uL Normal 4.4-11.0 [facility] Comment on above: Performed By: #### L 3000.0800, L3130.0010, L100.9950, L501.6710, L500.4050, L100.0100, L3100.3425, L101.9900, L503.0106 #### [facility] [address] [facility] [facility] [place], [place], [phone] CRPon 10-14-2024 C-REACTIVE PROT < 3.00 Normal 0.0-3.0 [facility] Comment on above: Performed By: #### L 3000.0800, L3130.0010, L100.9950, L501.6710, L500.4050, L100.0100, L3100.3425, L101.9900, L503.0106 #### [facility] [address] [facility] [facility] [place], [place], [phone] Carbon dioxide, total [Moles /volume] in Central venous bloodOrdered By: Meet Santos on 10-14-2024 CO2 [Moles/Vol] 25.7 mmol/L 21.0-32.0 [facility] Chloride assayOrdered By: Sherlyn Santos on 10-14-2024 Chloride [Moles/Vol] 104 mmol/L 98-108 [facility] Comprehensive Metabolic Prof ilon 10-14-2024 Albumin [Mass/Vol] 4.5 g/dL Normal 3.4-4.8 [facility] Comment on above: Performed By: #### L 3000.0800, L3130.0010, L100.9950, L501.6710, L500.4050, L100.0100, L3100.3425, L101.9900, L503.0106 #### [facility] [address] [place], [place], [phone] (539) Albumin/Globulin [Mass ratio] 1.5 {ratio} Normal 0.9-2.4 [facility] Comment on above: Performed By: #### L 3000.0800, L3130.0010, L100.9950, L501.6710, L500.4050, L100.0100, L3100.3425, L101.9900, L503.0106 #### [facility] [address] [place], [place], [phone] (618) ALK PHOS 67 U/L Normal 35-104 [facility] Comment on above: Performed By: #### L 3000.0800, L3130.0010, L100.9950, L501.6710, L500.4050, L100.0100, L3100.3425, L101.9900, L503.0106 #### [facility] [address] [place], [place], [phone] (750) ALT [Catalytic activity/Vol] 36 U/L High <=34 [facility] Comment on above: Performed By: #### L 3000.0800, L3130.0010, L100.9950, L501.6710, L500.4050, L100.0100, L3100.3425, L101.9900, L503.0106 #### [facility] [address] [place], [address] AST [Catalytic activity/Vol] 42 U/L High <=31 [facility] Comment on above: Performed By: #### L 3000.0800, L3130.0010, L100.9950, L501.6710, L500.4050, L100.0100, L3100.3425, L101.9900, L503.0106 #### [facility] [address] [place], [place], [phone] (640) Bilirubin [Mass/Vol] 0.43 mg/dL Normal 0.00-1.30 [facility] Comment on above: Performed By: #### L 3000.0800, L3130.0010, L100.9950, L501.6710, L500.4050, L100.0100, L3100.3425, L101.9900, L503.0106 #### [facility] [address] [place], [address] (924) BUN/CRE 23.1 RATIO High 10-20 [facility] Comment on above: Performed By: #### L 3000.0800, L3130.0010, L100.9950, L501.6710, L500.4050, L100.0100, L3100.3425, L101.9900, L503.0106 #### [facility] [address] [place], [address] (253) Calcium [Mass/Vol] 9.6 mg/dL Normal 7.6-11.0 [facility] Comment on above: Performed By: #### L 3000.0800, L3130.0010, L100.9950, L501.6710, L500.4050, L100.0100, L3100.3425, L101.9900, L503.0106 #### [facility] [address] [place], [place], [phone] (475) Chloride [Moles/Vol] 104 mmol/L Normal 98-108 [facility] Comment on above: Performed By: #### L 3000.0800, L3130.0010, L100.9950, L501.6710, L500.4050, L100.0100, L3100.3425, L101.9900, L503.0106 #### [facility] [address] [place], [address] (441) CO2 [Moles/Vol] 25.7 mmol/L Normal 21.0-32.0 [facility] Comment on above: Performed By: #### L 3000.0800, L3130.0010, L100.9950, L501.6710, L500.4050, L100.0100, L3100.3425, L101.9900, L503.0106 #### [facility] [address] [place], [address] Creatinine [Mass/Vol] 0.73 mg/dL Normal 0.70-1.20 [facility] Comment on above: Performed By: #### L 3000.0800, L3130.0010, L100.9950, L501.6710, L500.4050, L100.0100, L3100.3425, L101.9900, L503.0106 #### [facility] [address] [place], [place], [phone] (882) GAP 9 Normal 5-15 [facility] Comment on above: Performed By: #### L 3000.0800, L3130.0010, L100.9950, L501.6710, L500.4050, L100.0100, L3100.3425, L101.9900, L503.0106 #### [facility] [address] [place], [place], [phone] ([phone] GFR/1.73 sq M.predicted among non-blacks MDRD (S/P/Bld) [Vol rate/Area] 86 mL/min/{1.73_m2} Normal >60 [facility] Comment on above: Result Comment: mL/m in/1.73m2 CKD-EPI Creatinine Equation (2020) Performed By: #### L 3000.0800, L3130.0010, L100.9950, L501.6710, L500.4050, L100.0100, L3100.3425, L101.9900, L503.0106 #### [facility] [address] [place], [place], [phone] (399) Globulin (S) [Mass/Vol] 3.1 g/dL Normal 2.2-4.2 [facility] Comment on above: Performed By: #### L 3000.0800, L3130.0010, L100.9950, L501.6710, L500.4050, L100.0100, L3100.3425, L101.9900, L503.0106 #### [facility] [address] [place], [address] Glucose [Mass/Vol] 92 mg/dL Normal 70-99 [facility] Comment on above: Performed By: #### L 3000.0800, L3130.0010, L100.9950, L501.6710, L500.4050, L100.0100, L3100.3425, L101.9900, L503.0106 #### [facility] [address] [place], [address] Potassium [Moles/Vol] 3.9 mmol/L Normal 3.3-5.1 [facility] Comment on above: Performed By: #### L 3000.0800, L3130.0010, L100.9950, L501.6710, L500.4050, L100.0100, L3100.3425, L101.9900, L503.0106 #### [facility] [address] [place], [address] Sodium [Moles/Vol] 139 mmol/L Normal 133-145 [facility] Comment on above: Performed By: #### L 3000.0800, L3130.0010, L100.9950, L501.6710, L500.4050, L100.0100, L3100.3425, L101.9900, L503.0106 #### [facility] [address] [place], [address] T PROT 7.5 g/dL Normal 5.9-8.4 [facility] Comment on above: Performed By: #### L 3000.0800, L3130.0010, L100.9950, L501.6710, L500.4050, L100.0100, L3100.3425, L101.9900, L503.0106 #### [facility] [address] [place], [place], [phone] Urea nitrogen [Mass/Vol] 17 mg/dL Normal 4-19 [facility] Comment on above: Performed By: #### L 3000.0800, L3130.0010, L100.9950, L501.6710, L500.4050, L100.0100, L3100.3425, L101.9900, L503.0106 #### [facility] [address] [place], [address] Eosinophil percentageOrdered By: Meet Santos on 10-14-2024 Eosinophils/100 WBC (Bld) 0.4 % 0-5 [facility] Erythrocyte Sed Rateon 10-14 SED RATE 5 mm/hr Normal 0-30 [facility] Comment on above: Performed By: #### L 3000.0800, L3130.0010, L100.9950, L501.6710, L500.4050, L100.0100, L3100.3425, L101.9900, L503.0106 #### [facility] [address] [place], [address] Erythrocyte distribution wid th ratioOrdered By: Meet Santos on 10-14-2024 Erythrocyte distribution width (RBC) [Ratio] 13.4 % 11.6-14.6 [facility] Erythrocyte distribution wid th standard deviationOrdered By: Meet Santos on 10-14-2024 Erythrocyte distribution width (RBC) [Ratio] 42.3 fl 35.1-43.9 [facility] Erythrocyte sedimentation ra teOrdered By: Meet Santos on 10-14-2024 ESR (Bld) [Velocity] 5 mm/h 0-30 [facility] Glomerular filtration rate ( GFR) estimation/1.73 sq m using serum, plasma, or whole bOrdered By: Meet Santos on 05-15-2025 GFR/1.73 sq M.predicted among non-blacks MDRD (S/P/Bld) [Vol rate/Area] 86 mL/min/{1.73_m2} >60 [facility] Comment on above: mL/min/1.73m2 CKD-EP I Creatinine Equation (2020) Hematocrit Auto (Bld) [Volum e fraction]Ordered By: Meet Santos on 10-14-2024 Hematocrit (Bld) [Volume fraction] 37.4 % 37-47 [facility] Hemoglobin measurementOrdere d By: Meet Santos on 10-14-2024 Hemoglobin (Bld) [Mass/Vol] 12.8 g/dL 12.0-15.0 [facility] Immature granulocytes/100 WB C Auto (Bld)Ordered By: Meet Santos on 10-14-2024 Immature granulocytes/100 WBC (Bld) 0.000 % 0.0-0.9 [facility] Comment on above: IG% - Immature Granu locytes (promyelocytes, myelocytes and metamyelocytes) > 1% indicates that a LEFT SHIFT is Present. Interpretation of serum or p lasma protein pattern by immunofixation (narrative resultOrdered By: Meet Santos on 10-14-2024 Protein Fractions Immunofixation Issac [Interp] Not Reportable [facility] - Chemistry and C hemistry - challengeOrdered By: Meet Santos on 10-14-2024 AST [Catalytic activity/Vol] 42 U/L High <32 [facility] MCV (mean corpuscular volume ) determinationOrdered By: Meet Santos on 10-14-2024 MCV (RBC) [Entitic vol] 86.0 fL 81-99 [facility] Mean corpuscular hemoglobin (MCH) determinationOrdered By: Meet Santos on 10-14-2024 MCH (RBC) [Entitic mass] 29.4 pg 27.0-32.0 [facility] Mean corpuscular hemoglobin concentration (MCHC) determinationOrdered By: Meet Santos on 10-14-2024 MCHC (RBC) [Mass/Vol] 34.2 g/dL 32-36 [facility] Mean platelet volume determi nationOrdered By: Meet Santos on 10-14-2024 Platelet mean volume (Bld) [Entitic vol] 9.0 fL 6.2-12.0 [facility] Monocyte percentageOrdered B y: Meet Santos on 10-14-2024 Monocytes/100 WBC (Bld) 8.0 % 0-10 [facility] Neutrophil percentageOrdered By: Meet Santos on 10-14-2024 Neutrophils/100 WBC (Bld) 34.2 % Low 47-70 [facility] No Panel InformationOrdered By: Meet Santos on 10-14-2024 Hepatitis Interpretation See comment [facility] Comment on above: TEST RESULTS LIMITSV iral [...] infection (most common); false- positive anti-HBc (susceptible); "low-level" chronic infection"; resolving acute infection.HCV Ab Non Reactive Non ReactiveInterpretation: Not infected with HCV unless early or acute infection is suspected (which may be delayed in an immunocompromised individual), or other evidence exists to indicate HCV infection. TESTING PERFORMED AT [place]. ORIGINAL REPORT ON FILE IN LAB CONTAINS ADDITIONAL TEST SITE INFORMATION. Nucleated red blood cell per centageOrdered By: Meet Santos on 10-14-2024 Nucleated RBC/100 WBC (Bld) [Ratio] 0 % 0-5 [facility] Platelet countOrdered By: Sherlyn Santos on 10-14-2024 Platelets (Bld) [#/Vol] 174 10*3/uL 150-450 [facility] Potassium measurement (mass/ volume)Ordered By: Meet Santos on 10-14-2024 Potassium (Unsp spec) [Mass/Vol] 3.9 mmol/L 3.3-5.1 [facility] RBC Auto (Bld) [#/Vol]Ordere d By: Meet Santos on 10-14-2024 RBC (Bld) [#/Vol] 4.35 10*6/uL 4.2-5.4 [facility] Retic Panelon 10-14-2024 IM RET FRACTION 6.20 Normal 3.00-15.90 [facility] Comment on above: Performed By: #### L 3000.0800, L3130.0010, L100.9950, L501.6710, L500.4050, L100.0100, L3100.3425, L101.9900, L503.0106 #### [facility] [address] [place], [place], [id number] RET-HE 32.9 pg Normal 30-35 [facility] Comment on above: Performed By: #### L 3000.0800, L3130.0010, L100.9950, L501.6710, L500.4050, L100.0100, L3100.3425, L101.9900, L503.0106 #### [facility] [address] [place], [place], [id number] Retic Count 1.42 Normal 0.5-1.5 [facility] Comment on above: Performed By: #### L 3000.0800, L3130.0010, L100.9950, L501.6710, L500.4050, L100.0100, L3100.3425, L101.9900, L503.0106 #### [facility] [address] [place], [address] Reticulocyte hemoglobin equi valent (RET-He) measurementOrdered By: Meet Santos on 10-14-2024 Hemoglobin (Reticulocytes) [Entitic mass] 32.9 pg 30-35 [facility] Reticulocytes Auto (Bld) [#/ Vol]Ordered By: [facility] Reticulocytes/100 RBC (Bld) 1.42 % 0.5-1.5 [facility] Serum creatinine measurement (mass/volume)Ordered By: [facility] 10-[facility]2024 Creatinine [Mass/Vol] 0.73 mg/dL 0.70-1.20 [facility] Serum globulin measurementOr dered By: Meet Danielle on 10-14-2024 Globulin (S) [Mass/Vol] 3.1 g/dL 2.2-4.2 [facility] Serum glucose measurement (m ass/volume)Ordered By: Meet Santos on 10-14-2024 Glucose [Mass/Vol] 92 mg/dL 70-99 [facility] Serum immunoglobulin kappa l ight chains/immunoglobulin lambda light chains mass ratioOrdered By: [facility] on 10-14-2024 Immunoglobulin light chains.kappa/Immunoglobul in light chains.lambda (S) [Mass ratio] Not Reportable [facility] Serum or plasma C reactive p rotein measurement (mass/volume)Ordered By: Meet [facility] on 10-14-2024 CRP [Mass/Vol] mg/L 0.0-3.0 [facility] Serum or plasma IgA measurem ent (mass/volume)Ordered By: Meet [facility] on 10-14-2024 IgA [Mass/Vol] Not Reportable [facility] Serum or plasma IgG measurem ent (mass/volume)Ordered By: [facility] on 10-14-2024 IgG [Mass/Vol] Not Reportable [facility] Serum or plasma alanine hoff otransferase (ALT) measurementOrdered By: Meet Santos on 10-14-2024 ALT [Catalytic activity/Vol] 36 U/L High <35 [facility] Serum or plasma albumin benito urement (mass/volume)Ordered By: Meet Santos on 10-14-2024 Albumin [Mass/Vol] 4.5 g/dL 3.4-4.8 [facility] Serum or plasma albumin/glob ulin mass ratioOrdered By: Meet Santos on 10-14-2024 Albumin/Globulin [Mass ratio] 1.5 {ratio} 0.9-2.4 [facility] Serum or plasma alkaline ruiz sphatase measurementOrdered By: Meet Santos on 10-14-2024 ALP [Catalytic activity/Vol] 67 U/L 35-104 [facility] Serum or plasma alpha 1 glob ulin measurement by electrophoresis (mass/volume)Ordered By: Meet Santos on 10-14-2024 Alpha 1 globulin Elph [Mass/Vol] Not Reportable [facility] Serum or plasma beta globuli n measurement by electrophoresis (mass/volume)Ordered By: Meet Santos on 10-14-2024 Beta globulin Elph [Mass/Vol] Not Reportable [facility] Serum or plasma calcium benito urement (mass/volume)Ordered By: Meet Santos on 10-14-2024 Calcium [Mass/Vol] 9.6 mg/dL 7.6-11.0 [facility] Serum or plasma gamma globul in measurement by electrophoresis (mass/volume)Ordered By: Meet Santos on 10-14-2024 Gamma globulin Elph [Mass/Vol] Not Reportable [facility] Serum or plasma immunoglobul in kappa light chains measurement (mass/volume)Ordered By: Meet Santos on 10-14-2024 Immunoglobulin light chains.kappa [Mass/Vol] See comment [facility] Comment on above: TEST RESULTS LIMITSF ree K+L Lt Chains,Qn,S Free [place] Lt Chains,S 33.3 High mg/L 3.3-19.4 Free Lambda Lt Chains,S 45.0 High mg/L 5.7-26.3 [place]/Lambda Ratio,S 0.96 0.26-1.65 TESTING PERFORMED AT [facility]. ORIGINAL REPORT ON FILE IN LAB CONTAINS ADDITIONAL TEST SITE INFORMATION. Serum or plasma protein benito urement (mass/volume)Ordered By: Meet Santos on 10-14-2024 Protein [Mass/Vol] See [facility] Comment on above: TEST RESULTS LIMITSI FE and PE, Serum Immunoglobulin G, Qn, Serum 1622 High mg/dL 586-1602 Immunoglobulin A, Qn, Serum 172 mg/dL 87-352 Immunoglobulin M, Qn, Serum 106 mg/dL 26-217 Protein, Total 7.2 g/dL 6.0-8.5 Albumin 3.9 g/dL 2.9-4.4 Bezlw-4-Imfzjydj 0.2 g/dL 0.0-0.4 Uoten-5-Bclbhrit 0.6 g/dL 0.4-1.0 Beta Globulin 0.9 g/dL [...] computer, mail, orcourier delivery. [facility] ORIGINAL REPORT ON FILE IN LAB CONTAINS ADDITIONAL TEST SITE INFORMATION. Serum or plasma urea nitroge n measurement (mass/volume)Ordered By: Meet Danielle on 10-14-2024 Urea nitrogen [Mass/Vol] 17 mg/dL 4-19 [facility] Sodium levelOrdered By: Ramakrishna Santos on 10-14-2024 Sodium [Moles/Vol] 139 mmol/L 133-145 [facility] Total proteinOrdered By: Kevin philip Santos on 10-14-2024 Protein [Mass/Vol] 7.5 g/dL 5.9-8.4 [facility] Vitamin B12on 10-14-2024 Cobalamin (Vitamin B12) [Mass/Vol] 660 pg/mL Normal 180-914 [facility] Comment on above: Performed By: #### L 3000.0800, L3130.0010, L100.9950, L501.6710, L500.4050, L100.0100, L3100.3425, L101.9900, L503.0106 #### [facility] [address]. [place], [place], [id number] Vitamin B12 ser/plasOrdered By: Meet Danielle on 10-14-2024 Cobalamin (Vitamin B12) [Mass/Vol] 660 pg/mL 180-914 [facility] White blood cell (WBC) count Ordered By: Meet Santos on 10-14-2024 WBC (Bld) [#/Vol] 4.5 10*3/uL 4.4-11.0 [facility] Bone Survey Comp(Axial Appen d)on 09-08-2024 Bone Survey Comp(Axial Append) [facility] Imaging Services [address] [place] [address] Bone Survey Comp(Axial Append) MR#: [id number] Acct: [id number] Name: OLGA STAFFORD Rep #: [id number] : 1950 F 74 From: Johnathan Gutierrez MD PCP: Dr. Radha Rodas, DO Status: REG CLI Study: Bone Survey Comp(Axial Append) Date of Exam: 0 09/08/24 Exam# [id number] Ordering Dr: Meet Santos MD EXAM: XR [...] as above. Otherwise, unremarkable exam. Reading [facility] CC: Dr. Meet Santos MD; Dr. Radha Rodas DO Travograph Operator: Signed Normal [facility] ABD Limited w/ Elastographyo n 09-06-2024 ABD Limited w/ Elastography [facility] Imaging Services [address] [place] [id number] ABD Limited w/ Elastography MR#: [id number] Acct: [id number] Name: OLGA STAFFORD Rep #: [id number] : 1950 F 74 From: Johnathan Stephens MD PCP: Dr. 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 eGood S-shear wave elastography was performed for non-invasive [...] (15kPa): Significant fibrosis / cirrhosis Reading Location: [id number] CC: Dr. Meet Santos MD; Dr. Radha Rodas DO Travograph Operator: Signed Normal [facility] Oncology Visit Reporton 08-01 Oncology Visit Report [facility] [address] 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 [facility] Medical History (Updated 08/26/24 @ 16:17 by [...] Hives Medications ???Medication ???Instructions ???Recorded ???Confirmed ???Type tzdrbopk-sjm-qpka-FA-Ca carb-vit K 1 tab PO DAILY 03/25/19 08/26/24 History 18 mg iron-400 mc (more content not included)... Normal [facility] IgG Subclasseson 07-13-2024 IgG, SUBCLASS 1 1170 mg/dL High 248-810 [facility] Comment on above: Performed By: #### L 3200.0500 ####[facility] [address] [place], [address] IgG, SUBCLASS 2 102 mg/dL Low 130-555 [facility] Comment on above: Performed By: #### L 3200.0500 ####[facility] [address] [facility] [address] IgG, SUBCLASS 3 102 mg/dL Normal 15-102 [facility] Comment on above: Performed By: #### L 3200.0500 ####[facility] [address] [facility] [place], [address] IgG, SUBCLASS 4 19 mg/dL Normal 2-96 [facility] Comment on above: Result Comment: Perf ormed at: - [facility] [address] [id number] Claim Inspector: Cristhian Nath PhD, Phone: [phone] Performed By: #### L 3200.0500 ####[facility] [address] [place], [place], [id number] IGG,QUANT 1666 mg/dL High 586-1602 [facility] Comment on above: Performed By: #### L 3200.0500 ####[facility] [address] [place], [place], [phone]([phone] IgG [Mass/Vol]Ordered By: Arelis Mena on 07-12-2024 Immunoglobulin G Total 1666 mg/dL High 586-1602 [facility] IgG subclass 1 (S) [Mass/Vol ]Ordered By: Azul Mena on 07-12-2024 Immunoglobulin G1 1170 mg/dL High 248-810 [facility] IgG subclass 2 (S) [Mass/Vol ]Ordered By: Azul Mena on 07-12-2024 Immunoglobulin G2 102 mg/dL Low 130-555 [facility] IgG subclass 3 (S) [Mass/Vol ]Ordered By: Azul Mena on 07-12-2024 Immunoglobulin G3 102 mg/dL 15-102 [facility] Immunoglobulin G4 measuremen tOrdered By: Azul Mena on 07-12-2024 Immunoglobulin G4 19 mg/dL 2-96 [facility] Comment on above: Performed at: [place] [id number] [place], [place] [id number] Director: Cristhian Nath PhD, Phone: [phone] Serum IgG subclass 1 measure ment (mass/volume)Ordered By: Azul Mena on 07-12-2024 IgG subclass 1 (S) [Mass/Vol] 1170 mg/dL High 248-810 [facility] Serum IgG subclass 2 measure ment (mass/volume)Ordered By: Azul Mena on 07-12-2024 IgG subclass 2 (S) [Mass/Vol] 102 mg/dL Low 130-555 [facility] Serum IgG subclass 3 measure ment (mass/volume)Ordered By: Azul Mena on 07-12-2024 IgG subclass 3 (S) [Mass/Vol] 102 mg/dL 15-102 [facility] Serum or plasma IgG measurem ent (mass/volume)Ordered By: Azul Mena on 07-12-2024 IgG [Mass/Vol] 1666 mg/dL High 586-1602 [facility] DIVYA Comprehensive Panelon ANTI-DNA (DS)AB Normal [facility] Comment on above: Result Comment: TEST RESULTS LIMITS Antinuclear Ab 9 by Multiplex Anti-DNA (DS) Ab Qn <1 IU/mL 0-9 Negative <5 Equivocal 5 - 9 Positive >9 DETECTIVE AUTOMOBILE SECTION Antibodies 0.3 AI 0.0-0.9 Baez Antibodies <0.2 [...] Sm (anti-Baez) SLE 15 - 30% --------- DETECTIVE AUTOMOBILE SECTION Mixed Connective Tissue Disease 95% (U1 nRNP, SLE 30 - 50% anti-ribonucleoprotein) Polymyositis and/or Dermatomyositis 20% --------- Scl-70 (antiDNA Scleroderma (diffuse) 20 - 35% topoisomerase) Crest 13% --------- Sherlyn-1 Polymyositis and/or Dermatomyositis 20 - 40% --------- Centromere B Scleroderma - Crest variant 80% TESTING PERFORMED AT [facility]. ORIGINAL REPORT ON FILE IN LAB CONTAINS ADDITIONAL TEST SITE INFORMATION. Performed By: #### L 3100.5440 ####[facility] [address] [place], [place], [address] ANTISCLERODERM TNP Normal [facility] Comment on above: Performed By: #### L 3100.5440 ####[facility] [address] [place], [place], [address] ANCAon 07-08-2024 Atypical pANCA <1:20 Normal Neg:<1:20 [facility] Comment on above: Result Comment: The atypical pANCA pattern has been observed in a significant percentage of patients with ulcerative colitis, primary sclerosing cholangitis and autoimmune hepatitis. Performed By: #### L 3000.0800, L3130.0010, L100.9950, L501.6710, L500.4050, L100.0100, L3100.3425, L101.9900, L503.0106 #### [facility] [address] [place], [place], [address] [phone] Cytoplasmic Ab <1:20 Normal Neg:<1:20 [facility] Comment on above: Performed By: #### L 3000.0800, L3130.0010, L100.9950, L501.6710, L500.4050, L100.0100, L3100.3425, L101.9900, L503.0106 #### [facility] [address] [place], [place], [phone] Perinuclear Ab. <1:20 Normal Neg:<1:20 [facility] Comment on above: Result Comment: The presence of positive fluorescence exhibiting P-ANCA or C-ANCA patterns alone is not specific for the diagnosis of Zulma's Granulomatosis (WG) or microscopic polyangiitis. Decisions about treatment should not be based solely on ANCA IFA results. The International ANCA Group Consensus recommends follow up testing of positive sera with both KS- 3 and MPO-ANCA enzyme immunoassays. As many as 5% serum samples are positive only by EIA. Ref. AM J Clin Pathol 1999;111:507-513. Performed By: #### L 3000.0800, L3130.0010, L100.9950, L501.6710, L500.4050, L100.0100, L3100.3425, L101.9900, L503.0106 #### [facility] [address] [place], [place], [id number] Allergen, Mini-Raston 2024 A. ALTERNATA <0.10 Normal Class 0 [facility] Comment on above: Performed By: #### L 3000.0800, L3130.0010, L100.9950, L501.6710, L500.4050, L100.0100, L3100.3425, L101.9900, L503.0106 #### [facility] [address] [place], [place], [id number] BERMUDA GRASS <0.10 Normal Class 0 [facility] Comment on above: Performed By: #### L 3000.0800, L3130.0010, L100.9950, L501.6710, L500.4050, L100.0100, L3100.3425, L101.9900, L503.0106 #### [facility] [address] [place], [address] (825) [place] <0.10 Normal Class 0 [facility] Comment on above: Performed By: #### L 3000.0800, L3130.0010, L100.9950, L501.6710, L500.4050, L100.0100, L3100.3425, L101.9900, L503.0106 #### [facility] [address] [place], [address] CAT HAIR/DANDER <0.10 Normal Class 0 [facility] Comment on above: Performed By: #### L 3000.0800, L3130.0010, L100.9950, L501.6710, L500.4050, L100.0100, L3100.3425, L101.9900, L503.0106 #### [facility] [address] [place], [address] COMMENT Comment Normal . [facility] Comment on above: Result Comment: Annie esposito of Specific IgE Class Description of Class ----- < 0.10 0 Negative 0.10 - 0.31 0/I Equivocal/Low 0.32 - 0.55 I Low 0.56 - 1.40 II Moderate 1.41 - 3.90 III High 3.91 - 19.00 IV Very High 19.01 - 100.00 V Very High >100.00 Very High Performed By: #### L 3000.0800, L3130.0010, L100.9950, L501.6710, L500.4050, L100.0100, L3100.3425, L101.9900, L503.0106 #### [facility] [address] [place], [address] D FARINAE MITE <0.10 Normal Class 0 [facility] Comment on above: Performed By: #### L 3000.0800, L3130.0010, L100.9950, L501.6710, L500.4050, L100.0100, L3100.3425, L101.9900, L503.0106 #### [facility] [address] [place], [place], [phone] D PTERONYSSINUS <0.10 Normal Class 0 [facility] Comment on above: Performed By: #### L 3000.0800, L3130.0010, L100.9950, L501.6710, L500.4050, L100.0100, L3100.3425, L101.9900, L503.0106 #### [facility] [address] [place], [place], [phone] DOG EPITHELIA <0.10 Normal Class 0 [facility] Comment on above: Performed By: #### L 3000.0800, L3130.0010, L100.9950, L501.6710, L500.4050, L100.0100, L3100.3425, L101.9900, L503.0106 #### [facility] [address] [place], [place], [phone] ELM,AMER WHITE <0.10 Normal Class 0 [facility] Comment on above: Performed By: #### L 3000.0800, L3130.0010, L100.9950, L501.6710, L500.4050, L100.0100, L3100.3425, L101.9900, L503.0106 #### [facility] [address] [place], [place], [phone] Mouse Urine <0.10 Normal Class 0 [facility] Comment on above: Result Comment: Perf ormed at: [address] [id number] Claim Inspector: Talia Avendano MD, Phone: [phone] Performed By: #### L 3000.0800, L3130.0010, L100.9950, L501.6710, L500.4050, L100.0100, L3100.3425, L101.9900, L503.0106 #### [facility] [address] [place], [place], [phone] OAK, WHITE <0.10 Normal Class 0 [facility] Comment on above: Performed By: #### L 3000.0800, L3130.0010, L100.9950, L501.6710, L500.4050, L100.0100, L3100.3425, L101.9900, L503.0106 #### [facility] [address] [place], [place], [phone] PLANTNOA,CURLY <0.10 Normal Class 0 [facility] Comment on above: Performed By: #### L 3000.0800, L3130.0010, L100.9950, L501.6710, L500.4050, L100.0100, L3100.3425, L101.9900, L503.0106 #### [facility] [address] [place], [place], [phone] RAGWEED SH/COM <0.10 Normal Class 0 [facility] Comment on above: Performed By: #### L 3000.0800, L3130.0010, L100.9950, L501.6710, L500.4050, L100.0100, L3100.3425, L101.9900, L503.0106 #### [facility] [address] [place], [place], [phone] Celiac Disease Profileon ENDOMYSIAL IGA Negative Normal Negative [facility] Comment on above: Performed By: #### L 3000.0800, L3130.0010, L100.9950, L501.6710, L500.4050, L100.0100, L3100.3425, L101.9900, L503.0106 #### [facility] [address] [place], [place], [phone] tTG IGA <2 Normal 0-3 [facility] Comment on above: Result Comment: Nega tive 0 - 3 Weak Positive 4 - 10 Positive >10 Tissue Transglutaminase (tTG) has been identified as the endomysial antigen. Studies have demonstr- ated that endomysial IgA antibodies have over 99% specificity for gluten sensitive enteropathy. Performed By: #### L 3000.0800, L3130.0010, L100.9950, L501.6710, L500.4050, L100.0100, L3100.3425, L101.9900, L503.0106 #### [facility] [address] [place], [address] Gastrin, Serumon 07-08-2024 GASTRIN 46 pg/mL Normal 0-115 [facility] Comment on above: Result Comment: Siem ens Immulite 2000 Immunochemiluminometric assay (ICMA) Values obtained with different assay methods or kits cannot be used interchangeably. Results cannot be interpreted as absolute evidence of the presence or absence of malignant disease. Performed at: [facility] [address] [id number] Claim Inspector: Cristhian Nath PhD, Phone: [phone] Performed at: [facility] [address] [id number] Claim Inspector: Talia Avendano MD, Phone: [phone] Performed By: #### L 3000.0800, L3130.0010, L100.9950, L501.6710, L500.4050, L100.0100, L3100.3425, L101.9900, L503.0106 #### [facility] [address] [place], [address] Immunoglobulins G/A/M/David IMMUNOGLOB A QN 185 mg/dL Normal 64-422 [facility] Comment on above: Order Comment: Y Performed By: #### L 3000.0800, L3130.0010, L100.9950, L501.6710, L500.4050, L100.0100, L3100.3425, L101.9900, L503.0106 #### [facility] [address] [place], [address] IMMUNOGLOB E QN 29 IU/mL Normal 6-495 [facility] Comment on above: Order Comment: Y Performed By: #### L 3000.0800, L3130.0010, L100.9950, L501.6710, L500.4050, L100.0100, L3100.3425, L101.9900, L503.0106 #### [facility] [address] [place], [address] IMMUNOGLOB G QN 1644 mg/dL High 586-1602 [facility] Comment on above: Order Comment: Y Performed By: #### L 3000.0800, L3130.0010, L100.9950, L501.6710, L500.4050, L100.0100, L3100.3425, L101.9900, L503.0106 #### [facility] [address] [place], [address] IMMUNOGLOB M QN 111 mg/dL Normal 26-217 [facility] Comment on above: Order Comment: Y Performed By: #### L 3000.0800, L3130.0010, L100.9950, L501.6710, L500.4050, L100.0100, L3100.3425, L101.9900, L503.0106 #### [facility] [address] [place], [address] L5500.0550on 07-08-2024 BEEF <0.10 Normal Class 0 [facility] Comment on above: Performed By: #### L 3000.0800, L3130.0010, L100.9950, L501.6710, L500.4050, L100.0100, L3100.3425, L101.9900, L503.0106 #### [facility] [address] [place], [place], [phone] CHOCOLATE <0.10 Normal Class 0 [facility] Comment on above: Performed By: #### L 3000.0800, L3130.0010, L100.9950, L501.6710, L500.4050, L100.0100, L3100.3425, L101.9900, L503.0106 #### [facility] [address] [place], [place], [phone] (589) CODFISH <0.10 Normal Class 0 [facility] Comment on above: Performed By: #### L 3000.0800, L3130.0010, L100.9950, L501.6710, L500.4050, L100.0100, L3100.3425, L101.9900, L503.0106 #### [facility] [address] [place], [address] CORN <0.10 Normal Class 0 [facility] Comment on above: Performed By: #### L 3000.0800, L3130.0010, L100.9950, L501.6710, L500.4050, L100.0100, L3100.3425, L101.9900, L503.0106 #### [facility] [address] [place], [address] EGG, WHOLE <0.10 Normal Class 0 [facility] Comment on above: Performed By: #### L 3000.0800, L3130.0010, L100.9950, L501.6710, L500.4050, L100.0100, L3100.3425, L101.9900, L503.0106 #### [facility] [address] [place], [place], [phone] MILK (COW) <0.10 Normal Class 0 [facility] Comment on above: Performed By: #### L 3000.0800, L3130.0010, L100.9950, L501.6710, L500.4050, L100.0100, L3100.3425, L101.9900, L503.0106 #### [facility] [address] [place], [place], [phone] (022) MUSSELS <0.10 Normal Class 0 [facility] Comment on above: Performed By: #### L 3000.0800, L3130.0010, L100.9950, L501.6710, L500.4050, L100.0100, L3100.3425, L101.9900, L503.0106 #### [facility] [address] [place], [address] PEANUT <0.10 Normal Class 0 [facility] Comment on above: Performed By: #### L 3000.0800, L3130.0010, L100.9950, L501.6710, L500.4050, L100.0100, L3100.3425, L101.9900, L503.0106 #### [facility] [address] [place], [address] PORK <0.10 Normal Class 0 [facility] Comment on above: Performed By: #### L 3000.0800, L3130.0010, L100.9950, L501.6710, L500.4050, L100.0100, L3100.3425, L101.9900, L503.0106 #### [facility] [address] [place], [address] SALMON <0.10 Normal Class 0 [facility] Comment on above: Performed By: #### L 3000.0800, L3130.0010, L100.9950, L501.6710, L500.4050, L100.0100, L3100.3425, L101.9900, L503.0106 #### [facility] [address] [place], [address] [phone] SHRIMP <0.10 Normal Class 0 [facility] Comment on above: Performed By: #### L 3000.0800, L3130.0010, L100.9950, L501.6710, L500.4050, L100.0100, L3100.3425, L101.9900, L503.0106 #### [facility] [address] [place], [place], [phone] SOYBEAN <0.10 Normal Class 0 [facility] Comment on above: Performed By: #### L 3000.0800, L3130.0010, L100.9950, L501.6710, L500.4050, L100.0100, L3100.3425, L101.9900, L503.0106 #### [facility] [address] [place], [place], [phone] TUNA <0.10 Normal Class 0 [facility] Comment on above: Performed By: #### L 3000.0800, L3130.0010, L100.9950, L501.6710, L500.4050, L100.0100, L3100.3425, L101.9900, L503.0106 #### [facility] [address] [place], [place], [phone] WHEAT <0.10 Normal Class 0 [facility] Comment on above: Performed By: #### L 3000.0800, L3130.0010, L100.9950, L501.6710, L500.4050, L100.0100, L3100.3425, L101.9900, L503.0106 #### [facility] [address] [place], [place], [phone] Albumin to globulin ratioOrd ered By: Alejandro Roy on 07-05-2024 Albumin/Globulin [Mass ratio] 1.0 {ratio} 0.9-2.4 [facility] Alternaria alternata IgE ser umOrdered By: Alejandro Roy on 07-05-2024 Alternaria alternata IgE Allergen <0.10 kU/L Class 0 [facility] Amylaseon 07-05-2024 AISHWARYA 67 U/L Normal 25-115 [facility] Comment on above: Performed By: #### L 3000.0800, L3130.0010, L100.9950, L501.6710, L500.4050, L100.0100, L3100.3425, L101.9900, L503.0106 #### [facility] [place], [address] Atypical perinuclear antineu trophil cytoplasmic antibodies measurementOrdered By: Alejandro Roy on 07-05-2024 Atypical p-ANCA <1:20 titer Neg:<1:20 [facility] Comment on above: The atypical pANCA p attern has been observed in asignificant percentage of patients with ulcerative colitis,primary sclerosing cholangitis and autoimmune hepatitis. Beef IgE Qn (S)Ordered By: Mathieu Roy on 07-05-2024 Beef Allergen (RAST) <0.10 kU/L Class 0 [facility] Bermuda grass IgE Qn (S)Orde red By: Alejandro Roy on 07-05-2024 Bermuda Grass Allergen <0.10 kU/L Class 0 [facility] Bilirubin, totalOrdered By: Alejandro Roy on 07-05-2024 Bilirubin [Mass/Vol] 0.40 mg/dL 0.20-1.00 [facility] Comment on above: For patients on eltr ombopag therapy, use of Dimension [place] TBIL is not recommended. Blood urea nitrogen (BUN)/cr eatinine ratioOrdered By: Alejandro Roy on 07-05-2024 Urea nitrogen/Creatinine [Mass ratio] 30.7 mg/mg High 10-20 [facility] C-reactive protein measureme nt by high sensitivity methodOrdered By: Alejandro Roy on 07-05-2024 C-Reactive Protein Extended Range < 2.90 mg/L 0.0-3.0 [facility] Comment on above: C-Reactive Protein ( CRP) provides useful information for thediagnosis, therapy and monitoring of inflammatory processesand associated diseases. For the evaluation of Relative Riskfor Cardiovascular Disease, a High Sensitivity CRP (HSCRP)should be ordered. CRPon 07-05-2024 C-REACTIVE PROT < 2.90 Normal 0.0-3.0 [facility] Comment on above: Result Comment: C-Re active Protein (CRP) provides useful information for the diagnosis, therapy and monitoring of inflammatory processes and associated diseases. For the evaluation of Relative Risk for Cardiovascular Disease, a High Sensitivity CRP (HSCRP) should be ordered. Performed By: #### L 3000.0800, L3130.0010, L100.9950, L501.6710, L500.4050, L100.0100, L3100.3425, L101.9900, L503.0106 #### [facility] [address] [place] [place], [address] Carbon dioxide measurementOr dered By: Alejandro Roy on 07-05-2024 CO2 [Moles/Vol] 26.0 mmol/L 21.0-32.0 [facility] Cat dander IgE Qn (S)Ordered By: Alejandro Roy on 07-05-2024 Cat Dander IgE Allergen <0.10 kU/L Class 0 [facility] Centromere B antibody assayO rdered By: Alejandro Roy on 07-05-2024 Centromere B Antibody TNP [facility] Comment on above: Test not performed Chloride measurementOrdered By: Alejandro Roy on 07-05-2024 Chloride [Moles/Vol] 108 mmol/L High 98-107 [facility] Chocolate IgE serumOrdered B y: Alejandro Roy on 07-05-2024 Chocolate Allergen (RAST) <0.10 kU/L Class 0 [facility] Chromatin antibody assayOrde red By: Alejandro Roy on 07-05-2024 Antichromatin Antibodies TNP [facility] Comment on above: Test not performed Codfish IgE Qn (S)Ordered By : Alejandro Roy on 07-05-2024 Codfish Allergen (RAST) <0.10 kU/L Class 0 [facility] Comprehensive Metabolic Prof ilon 07-05-2024 Albumin [Mass/Vol] 4.0 g/dL Normal 3.2-5.0 [facility] Comment on above: Performed By: #### L 3000.0800, L3130.0010, L100.9950, L501.6710, L500.4050, L100.0100, L3100.3425, L101.9900, L503.0106 #### [facility] [address] [place], [address] Albumin/Globulin [Mass ratio] 1.0 {ratio} Normal 0.9-2.4 [facility] Comment on above: Performed By: #### L 3000.0800, L3130.0010, L100.9950, L501.6710, L500.4050, L100.0100, L3100.3425, L101.9900, L503.0106 #### [facility] [address] [place], [place], [phone] ALK P 69 U/L Normal 45-117 [facility] Comment on above: Performed By: #### L 3000.0800, L3130.0010, L100.9950, L501.6710, L500.4050, L100.0100, L3100.3425, L101.9900, L503.0106 #### [facility] [address] [place], [address] ALT [Catalytic activity/Vol] 43 U/L Normal 13-56 [facility] Comment on above: Performed By: #### L 3000.0800, L3130.0010, L100.9950, L501.6710, L500.4050, L100.0100, L3100.3425, L101.9900, L503.0106 #### [facility] [address] [place], [address] AST [Catalytic activity/Vol] 41 U/L High 15-37 [facility] Comment on above: Performed By: #### L 3000.0800, L3130.0010, L100.9950, L501.6710, L500.4050, L100.0100, L3100.3425, L101.9900, L503.0106 #### [facility] [address] [place], [address] Bilirubin [Mass/Vol] 0.40 mg/dL Normal 0.20-1.00 [facility] Comment on above: Result Comment: For patients on eltrombopag therapy, use of Dimension [place] TBIL is not recommended. Performed By: #### L 3000.0800, L3130.0010, L100.9950, L501.6710, L500.4050, L100.0100, L3100.3425, L101.9900, L503.0106 #### [facility] [address] [place], [address] BUN/CRE 30.7 RATIO High 10-20 [facility] Comment on above: Performed By: #### L 3000.0800, L3130.0010, L100.9950, L501.6710, L500.4050, L100.0100, L3100.3425, L101.9900, L503.0106 #### [facility] [address] [place], [address] CA,Total 9.1 mg/dL Normal 8.5-10.1 [facility] Comment on above: Performed By: #### L 3000.0800, L3130.0010, L100.9950, L501.6710, L500.4050, L100.0100, L3100.3425, L101.9900, L503.0106 #### [facility] [address] [place], [address] Chloride [Moles/Vol] 108 mmol/L High 98-107 [facility] Comment on above: Performed By: #### L 3000.0800, L3130.0010, L100.9950, L501.6710, L500.4050, L100.0100, L3100.3425, L101.9900, L503.0106 #### [facility] [address] [place], [address] CO2 [Moles/Vol] 26.0 mmol/L Normal 21.0-32.0 [facility] Comment on above: Performed By: #### L 3000.0800, L3130.0010, L100.9950, L501.6710, L500.4050, L100.0100, L3100.3425, L101.9900, L503.0106 #### [facility] [address] [place], [address] Creatinine [Mass/Vol] 0.68 mg/dL Normal 0.55-1.02 [facility] Comment on above: Result Comment: The validity of the calculated GFR GFRAA in patients over 70 years has not been determined. Clinical correlation is essential. Performed By: #### L 3000.0800, L3130.0010, L100.9950, L501.6710, L500.4050, L100.0100, L3100.3425, L101.9900, L503.0106 #### [facility] [address] [place], [place], [id number] EST GFR - AA 108 mL/min Normal >60 [facility] Comment on above: Result Comment: Afri can Chilean GFR Calc Performed By: #### L 3000.0800, L3130.0010, L100.9950, L501.6710, L500.4050, L100.0100, L3100.3425, L101.9900, L503.0106 #### [facility] [address] [place], [address] GAP 5 Normal 5-15 [facility] Comment on above: Performed By: #### L 3000.0800, L3130.0010, L100.9950, L501.6710, L500.4050, L100.0100, L3100.3425, L101.9900, L503.0106 #### [facility] [address] [place], [address] GFR/1.73 sq M.predicted among non-blacks MDRD (S/P/Bld) [Vol rate/Area] 89 mL/min/{1.73_m2} Normal >60 [facility] Comment on above: Result Comment: Non- GFR Calc Performed By: #### L 3000.0800, L3130.0010, L100.9950, L501.6710, L500.4050, L100.0100, L3100.3425, L101.9900, L503.0106 #### [facility] [address] [place], [address] Globulin (S) [Mass/Vol] 4.0 g/dL Normal 2.2-4.2 [facility] Comment on above: Performed By: #### L 3000.0800, L3130.0010, L100.9950, L501.6710, L500.4050, L100.0100, L3100.3425, L101.9900, L503.0106 #### [facility] [address] [place], [address] Glucose [Mass/Vol] 99 mg/dL Normal 74-106 [facility] Comment on above: Performed By: #### L 3000.0800, L3130.0010, L100.9950, L501.6710, L500.4050, L100.0100, L3100.3425, L101.9900, L503.0106 #### [facility] [address] [place], [address] Potassium [Moles/Vol] 3.6 mmol/L Normal 3.5-5.1 [facility] Comment on above: Performed By: #### L 3000.0800, L3130.0010, L100.9950, L501.6710, L500.4050, L100.0100, L3100.3425, L101.9900, L503.0106 #### [facility] [address] [place], [address] Sodium [Moles/Vol] 139 mmol/L Normal 136-145 [facility] Comment on above: Performed By: #### L 3000.0800, L3130.0010, L100.9950, L501.6710, L500.4050, L100.0100, L3100.3425, L101.9900, L503.0106 #### [facility] [address] [place], [address] T PROT 8.0 g/dL Normal 6.4-8.2 [facility] Comment on above: Performed By: #### L 3000.0800, L3130.0010, L100.9950, L501.6710, L500.4050, L100.0100, L3100.3425, L101.9900, L503.0106 #### [facility] [address] [place], [address] Urea nitrogen [Mass/Vol] 21 mg/dL High 7-18 [facility] Comment on above: Performed By: #### L 3000.0800, L3130.0010, L100.9950, L501.6710, L500.4050, L100.0100, L3100.3425, L101.9900, L503.0106 #### [facility] [address] [place], [address] [place] IgE Qn (S)Ordered By: Mathieu bonilla Friend on 07-05-2024 [place] Allergen (RAST) <0.10 kU/L Class 0 [facility] Cow milk IgE Qn (S)Ordered B y: Alejandro Friend on 07-05-2024 Cow's Milk Allergen <0.10 kU/L Class 0 [facility] DNA double strand Ab Qn (S)O rdered By: Alejandro Friend on 07-05-2024 Anti-Double Strand DNA Antibody See comment [facility] Comment on above: TEST RESULTS LIMITSA ntinuclear Ab 9 by Multiplex Anti-DNA (DS) Ab Qn <1 IU/mL 0-9 Negative <5 Equivocal 5 - 9 Positive >9 DETECTIVE AUTOMOBILE SECTION Antibodies 0.3 AI 0.0-0.9 Baez Antibodies <0.2 [...] 30% ---------Sm (anti-Baez) SLE 15 - 30% ---------DETECTIVE AUTOMOBILE SECTION Mixed Connective Tissue Disease 95%(U1 nRNP, SLE 30 - 50%anti-ribonucleoprotein) Polymyositis and/or Dermatomyositis 20% ---------Scl-70 (antiDNA Scleroderma (diffuse) 20 - 35%topoisomerase) Crest 13% ---------Sherlyn-1 Polymyositis and/or Dermatomyositis 20 - 40% ---------Centromere B Scleroderma - Crest variant 80% TESTING PERFORMED AT [facility]. ORIGINAL REPORT ON FILE IN LAB CONTAINS ADDITIONAL TEST SITE INFORMATION. Dog epithelium IgE Qn (S)Ord ered By: Alejandro Roy on 07-05-2024 Dog Epithelia Allergen <0.10 kU/L Class 0 [facility] Endomysial IgA antibody assa yOrdered By: Alejandro Roy on 07-05-2024 Endomysial IgA Antibody Negative Negative [facility] Erythrocyte Sed Rateon 07-05 SED RATE 3 mm/hr Normal 0-30 [facility] Comment on above: Performed By: #### L 3000.0800, L3130.0010, L100.9950, L501.6710, L500.4050, L100.0100, L3100.3425, L101.9900, L503.0106 #### [facility] [place], [address] Erythrocyte sedimentation ra teOrdered By: Alejandro Roy on 07-05-2024 ESR (Bld) [Velocity] 3 mm/h 0-30 [facility] Estimated glomerular filtrat ion rate (GFR) AmericanOrdered By: Alejandro Roy on 07-05-2024 Estimated GFR (MDRD) Amer 108 mL/min >60 [facility] Comment on above: GFR Calc house dust mite IgE Qn (S)Ordered By: Alejandro Roy on 07-05-2024 Dermatophagoides pteronyss Allergen <0.10 kU/L Class 0 [facility] Gastrin [Mass/Vol]Ordered By : Alejandro Roy on 07-05-2024 Gastrin 46 pg/mL 0-115 [facility] Comment on above: Siemens Immulite 200 0 Immunochemiluminometric assay (ICMA)Values obtained with different assay methods or kits cannotbe used interchangeably. Results cannot be interpreted asabsolute evidence of the presence or absence of malignantdisease.Performed at: [facility] [address] [id number] Director: Cristhian Nath PhD, Phone: [phone] at: [address] [id number] Director: Talia Avendano MD, Phone: [phone] Gastrin, serumOrdered By: Ra lesvia Roy on 07-05-2024 Gastrin [Mass/Vol] 46 pg/mL 0-115 [facility] Comment on above: Siemens Immulite 200 0 Immunochemiluminometric assay (ICMA)Values obtained with different assay methods or kits cannotbe used interchangeably. Results cannot be interpreted asabsolute evidence of the presence or absence of malignantdisease.Performed at: [facility] [id number] Director: Cristhian Nath PhD, Phone: [phone] at: [facility] [address] [id number] Director: Talia Avendano MD, Phone: [phone] Gastroenterology Visit Repor ton 07-05-2024 Gastroenterology Visit Report [facility] [address] [place] [address] OFFICE VISIT Date of Service: 07/05/24 MR#: [id number] Acct: [id number] Name: OLGA STAFFORD Rep #: [id number] : 1950 Provider: Alejandro Roy DO Age/Sex: 74/F Location: [facility] [email or web address] Status: Signed Intake Vital Signs 01/30/24 06:11 Height 5 ft 2 in Intake Visit Reasons: vomiting after protein Allergies Penicillins Allergy (Verified 01/30/24 06:21) Hives Medications ???Medication ???Instructions ???Recorded ???Confirmed ???Type aolcxymy-hpn-kvpk-FA-Ca carb-vit K 1 tab PO DAILY 03/25/19 [...] to the office today for initial consult. *[facility] established 2.3.25 pt reports that for the [...] he underwent imaging by her PCP at [facility] that showed a large amount of stool and delayed gastric emptying on a gastric emptying study. From 2013 and 2021 she had random bouts of vomiting probably eating types of foods such as, chickpeas, fish, pepitas, black beans, pecans and walnuts. Her treatment up until 2021 was food avoidance. In July 2021 she had saw an food adviser at previous clinic and was diagnosed with [...] food substa (more content not included)... Normal [facility] Glomerular filtration rate ( GFR) estimationOrdered By: Alejandro Roy on 07-05-2024 Estimated GFR (MDRD) Non-Af Amer 89 mL/min >60 [facility] Comment on above: Non- GFR Calc GFR/1.73 sq M.predicted among non-blacks MDRD (S/P/Bld) [Vol rate/Area] 89 mL/min/{1.73_m2} >60 [facility] Comment on above: Non- GFR Calc Glucose measurementOrdered B y: Alejandro Roy on 07-05-2024 Glucose [Mass/Vol] 99 mg/dL 74-106 [facility] IgA [Mass/Vol]Ordered By: Ra lesvia Roy on 07-05-2024 Immunoglobulin A 185 mg/dL 64-422 [facility] IgEOrdered By: Alejandro price on 07-05-2024 IgE 29 IU/mL 6-495 [facility] Immunoglobulin E 29 IU/mL 6-495 [facility] IgG [Mass/Vol]Ordered By: Ra lesvia Roy on 07-05-2024 Immunoglobulin G 1644 mg/dL High 586-1602 [facility] Immunoglobulin M measurement Ordered By: Alejandro Roy on 07-05-2024 Immunoglobulin M 111 mg/dL 26-217 [facility] Sherlyn-1 antibody assayOrdered B y: Alejandro Roy on 07-05-2024 SHERLYN-1 Antibody TNP [facility] Comment on above: Test not performed GordyBeetle Beats grass IgE Qn ( S)Ordered By: Alejandro Roy on 07-05-2024 KentmamtaScality (October) Grass IgE Ab <0.10 kU/L Class 0 [facility] LDHon 07-05-2024 LDH 213 U/L Normal 84-246 [facility] Comment on above: Order Comment: 1 Performed By: #### L 3000.0800, L3130.0010, L100.9950, L501.6710, L500.4050, L100.0100, L3100.3425, L101.9900, L503.0106 #### [facility] [address] [place], [address] Laboratory - Chemistry and C hemistry - challengeOrdered By: Alejandro Roy on 07-05-2024 AST [Catalytic activity/Vol] 41 U/L High 15-37 [facility] - Miscellaneous t estsOrdered By: Alejandro Roy on 07-05-2024 Service comment (Unsp spec) [Interp] Comment . [facility] Comment on above: Levels of Specific I [...] 07-05-2024 LDH [Catalytic activity/Vol] 213 U/L 84-246 [facility] Lipaseon 07-05-2024 Lipase [Catalytic activity/Vol] 51 U/L Normal -75 [facility] Comment on above: Result Comment: David yo note: LIPASE revised reference range effective 22. New Lipase methodology. Expected to produce lower values than the previous assay method. NEW Reference Range: 13 - 75 U/L Performed By: #### L 3000.0800, L3130.0010, L100.9950, L501.6710, L500.4050, L100.0100, L3100.3425, L101.9900, L503.0106 #### [facility], [address] Lipase measurementOrdered By : Alejandro Roy on 07-05-2024 Lipase [Catalytic activity/Vol] 51 U/L - [facility] Comment on above: Please note:LIPASE r evised reference range effective 22. New Lipase methodology. Expected to produce lower values than the previous assay method. NEW Reference Range: 13 - 75 U/L Mouse urine IgEOrdered By: Mathieu Roy on 07-05-2024 Mouse Urine Allergen IgE Antibody <0.10 kU/L Class 0 [facility] Comment on above: Performed at: [address] [id number] Director: Talia Avendano MD, Phone: [phone] Neutrophil cytoplasmic Ab.cl assic Qn (S)Ordered By: Alejandro Roy on 07-05-2024 Cytoplasmic ANCA (c-ANCA) Antibody <1:20 titer Neg:<1:20 [facility] Neutrophil cytoplasmic Ab.pe rinuclear IF (S) [Titer]Ordered By: Alejandro Roy on 07-05-2024 Perinuclear ANCA (p-ANCA) Antibody <1:20 titer Neg:<1:20 [facility] Comment on above: The presence of posi tive fluorescence exhibiting P-ANCA orC-ANCA patterns alone is not specific for the diagnosis ofWegener's Granulomatosis (WG) or microscopic polyangiitis.Decisions about treatment should not be based solely onANCA IFA results. The International ANCA Group Consensusrecommends follow up testing of positive sera with both KS-3 and MPO-ANCA enzyme immunoassays. As many as 5% serumsamples are positive only by EIA. Ref. AM J Clin [id number];111:507-513. Peanut IgE Qn (S)Ordered By: Alejandro Roy on 07-05-2024 Peanut Allergen (RAST) <0.10 kU/L Class 0 [facility] Pork IgE Qn (S)Ordered By: Mathieu Roy on 07-05-2024 Pork Allergen (RAST) <0.10 kU/L Class 0 [facility] Potassium measurementOrdered By: Alejandro Roy on 07-05-2024 Potassium [Moles/Vol] 3.6 mmol/L 3.5-5.1 [facility] DETECTIVE AUTOMOBILE SECTION abOrdered By: Alejandro Valles iend on 07-05-2024 DETECTIVE AUTOMOBILE SECTION Antibody [facility] Comment on above: Test not performed SCL-70 extractable nuclear A b Qn (S)Ordered By: Alejandro Roy on 07-05-2024 Scl-70 (Scleroderma) Antibody [facility] Comment on above: Test not performed SS-A IgG antibody assayOrder ed By: Alejandro Roy on 07-05-2024 SS-A/Ro IgG Antibody [facility] Comment on above: Test not performed SS-B IgG antibody assayOrder ed By: Alejandro Roy on 07-05-2024 SS-B/La IgG Antibody [facility] Comment on above: Test not performed [place] IgE Qn (S)Ordered By: Alejandro Roy on 07-05-2024 [place] Allergen IgE Antibody <0.10 kU/L Class 0 [facility] Serum Berm[place] grass IgE anti body assay (units/volume)Ordered By: Alejandro Roy on 07-05-2024 [place] grass IgE Qn (S) <0.10 kU/L Class 0 [facility] Serum DNA double strand anti body assay (units/volume)Ordered By: Alejandro Roy on 07-05-2024 DNA double strand Ab Qn (S) See comment [facility] Comment on above: TEST RESULTS LIMITSA ntinuclear Ab 9 by Multiplex Anti-DNA (DS) Ab Qn <1 IU/mL 0-9 Negative <5 Equivocal 5 - 9 Positive >9 DETECTIVE AUTOMOBILE SECTION Antibodies 0.3 AI 0.0-0.9 Baez Antibodies <0.2 [...] 30% ---------Sm (anti-Baez) SLE 15 - 30% ---------DETECTIVE AUTOMOBILE SECTION Mixed Connective Tissue Disease 95%(U1 nRNP, SLE 30 - 50%anti-ribonucleoprotein) Polymyositis and/or Dermatomyositis 20% ---------Scl-70 (antiDNA Scleroderma (diffuse) 20 - 35%topoisomerase) Crest 13% ---------Sherlyn-1 Polymyositis and/or Dermatomyositis 20 - 40% ---------Centromere B Scleroderma - Crest variant 80% TESTING PERFORMED AT [facility]. ORIGINAL REPORT ON FILE IN LAB CONTAINS ADDITIONAL TEST SITE INFORMATION. Serum Dermatophagoides farin ae specific IgE antibody assayOrdered By: Alejandro Roy on 07-05-2024 Dermatophagoides farinae Allergen <0.10 kU/L Class 0 [facility] Serum Mosotho plantain speci fic IgE antibody assayOrdered By: Alejandro Roy on 07-05-2024 Mosotho Plantain Allergen (RAST) <0.10 kU/L Class 0 [facility] Serum house dust mi te IgE antibody assay (units/volume)Ordered By: Alejandro Roy on 07-05-2024 house dust mite IgE Qn (S) <0.10 kU/L Class 0 [facility] Serum [place] blue grass Ig E antibody assay (units/volume)Ordered By: Alejandro Roy on 07-05-2024 [facility] blue grass IgE Qn (S) <0.10 kU/L Class 0 [facility] Serum Scl-70 antibody assay (units/volume)Ordered By: Alejandro Roy on 07-05-2024 SCL-70 extractable nuclear Ab Qn (S) TNP [facility] Comment on above: Test not performed Serum anion gap measurementO rdered By: Alejandro Roy on 07-05-2024 Anion gap [Moles/Vol] 5 mmol/L 5-15 [facility] Serum beef IgE antibody assa y (units/volume)Ordered By: Alejandro Roy on 07-05-2024 Beef IgE Qn (S) <0.10 kU/L Class 0 [facility] Serum cat dander IgE antibod y assay (units/volume)Ordered By: Alejandro Roy on 07-05-2024 Cat dander IgE Qn (S) <0.10 kU/L Class 0 [facility] Serum classic neutrophil cyt oplasmic antibody assay (units/volume)Ordered By: Alejandro Roy on 07-05-2024 Neutrophil cytoplasmic Ab.classic Qn (S) <1:20 titer Neg:<1:20 [facility] Serum codfish IgE antibody a ssay (units/volume)Ordered By: Alejandro Roy on 07-05-2024 Codfish IgE Qn (S) <0.10 kU/L Class 0 [facility] Serum common/short ragweed s pecific IgE antibody assayOrdered By: Alejandro Roy on 07-05-2024 Common Ragweed (Short) Allergen <0.10 kU/L Class 0 [facility] Serum corn IgE antibody assa y (units/volume)Ordered By: Alejandro Roy on 07-05-2024 [place] IgE Qn (S) <0.10 kU/L Class 0 [facility] Serum cow milk IgE antibody assay (units/volume)Ordered By: Alejandro Roy on 07-05-2024 Cow milk IgE Qn (S) <0.10 kU/L Class 0 [facility] Serum dog epithelium IgE ant ibody assay (units/volume)Ordered By: Alejandro Roy on 07-05-2024 Dog epithelium IgE Qn (S) <0.10 kU/L Class 0 [facility] Serum globulin measurementOr dered By: Alejandro Roy on 07-05-2024 Globulin (S) [Mass/Vol] 4.0 g/dL 2.2-4.2 [facility] Serum mussel specific IgE an tibody assayOrdered By: Alejandro Roy on 07-05-2024 Mussel Allergen IgE Antibody <0.10 kU/L Class 0 [facility] Serum or plasma IgA measurem ent (mass/volume)Ordered By: Alejandro Roy on 07-05-2024 IgA [Mass/Vol] 185 mg/dL 64-422 [facility] Serum or plasma IgG measurem ent (mass/volume)Ordered By: Alejandro Roy on 07-05-2024 IgG [Mass/Vol] 1644 mg/dL High 586-1602 [facility] Serum or plasma alanine hoff otransferase (ALT) measurementOrdered By: Alejandro Roy on 07-05-2024 ALT [Catalytic activity/Vol] 43 U/L 13-56 [facility] Serum or plasma albumin benito urement (mass/volume)Ordered By: Alejandro Roy on 07-05-2024 Albumin [Mass/Vol] 4.0 g/dL 3.2-5.0 [facility] Serum or plasma alkaline ruiz sphatase measurementOrdered By: Alejandro Roy on 07-05-2024 ALP [Catalytic activity/Vol] 69 U/L 45-117 [facility] Serum or plasma amylase benito urement (enzymatic activity/volume)Ordered By: Alejandro Roy on 07-05-2024 Amylase [Catalytic activity/Vol] 67 U/L 25-115 [facility] Serum or plasma calcium benito urement (mass/volume)Ordered By: Alejandro Roy on 07-05-2024 Calcium [Mass/Vol] 9.1 mg/dL 8.5-10.1 [facility] Serum or plasma creatinine m easurement (mass/volume)Ordered By: Alejandro Roy on 07-05-2024 Creatinine [Mass/Vol] 0.68 mg/dL 0.55-1.02 [facility] Comment on above: The validity of the calculated GFR & GFRAA in patients over 70 years has not been determined. Clinical correlation is essential. Serum or plasma urea nitroge n measurement (mass/volume)Ordered By: Alejandro Roy on 07-05-2024 Urea nitrogen [Mass/Vol] 21 mg/dL High 7-18 [facility] Serum peanut IgE antibody as say (units/volume)Ordered By: Alejandro Roy on 07-05-2024 Peanut IgE Qn (S) <0.10 kU/L Class 0 [facility] Serum perinuclear neutrophil cytoplasmic antibody titer by immunofluorescenceOrdered By: Alejandro Roy on 07-05-2024 Neutrophil cytoplasmic Ab.perinuclear IF (S) [Titer] <1:20 titer Neg:<1:20 [facility] Comment on above: The presence of posi tive fluorescence exhibiting P-ANCA orC-ANCA patterns alone is not specific for the diagnosis ofWegener's Granulomatosis (WG) or microscopic polyangiitis.Decisions about treatment should not be based solely onANCA IFA results. The International ANCA Group Consensusrecommends follow up testing of positive sera with both KS-3 and MPO-ANCA enzyme immunoassays. As many as 5% serumsamples are positive only by EIA. Ref. AM J Clin [id number];111:507-513. Serum pork IgE antibody assa y (units/volume)Ordered By: Alejandro Roy on 07-05-2024 Pork IgE Qn (S) <0.10 kU/L Class 0 [facility] Serum salmon IgE antibody as say (units/volume)Ordered By: Alejandro Roy on 07-05-2024 [place] IgE Qn (S) <0.10 kU/L Class 0 [facility] Serum shrimp specific IgE an tibody assayOrdered By: Alejandro Roy on 07-05-2024 Shrimp Allergen <0.10 kU/L Class 0 [facility] Serum soybean IgE antibody a ssay (units/volume)Ordered By: Alejandro Roy on 07-05-2024 Soybean IgE Qn (S) <0.10 kU/L Class 0 [facility] Serum tissue transglutaminas e (tTG) IgA antibody assay (units/volume)Ordered By: Alejandro Roy on 07-05-2024 tTG IgA Qn (S) <2 U/mL 0-3 [facility] Comment on above: Negative 0 - 3 Weak Positive 4 - 10 Positive >10 Tissue Transglutaminase (tTG) has been identified as the endomysial antigen. Studies have demonstr- ated that endomysial IgA antibodies have over 99% specificity for gluten sensitive enteropathy. Serum tuna IgE antibody assa y (units/volume)Ordered By: Alejandro Roy on 07-05-2024 Tuna IgE Qn (S) <0.10 kU/L Class 0 [facility] Serum wheat IgE antibody ass ay (units/volume)Ordered By: Alejandro Roy on 07-05-2024 Wheat IgE Qn (S) <0.10 kU/L Class 0 [facility] Serum white elm IgE antibody assay (units/volume)Ordered By: Alejandro Roy on 07-05-2024 [place] IgE Qn (S) <0.10 kU/L Class 0 [facility] Serum white oak IgE antibody assay (units/volume)Ordered By: Alejandro Roy on 07-05-2024 [place] IgE Qn (S) <0.10 kU/L Class 0 [facility] Serum whole egg IgE antibody assay (units/volume)Ordered By: Alejandro Roy on 07-05-2024 Whole Egg IgE Qn (S) <0.10 kU/L Class 0 [facility] Service comment (Unsp spec) [Interp]Ordered By: Alejandro Roy on 07-05-2024 RAST Comment Comment . [facility] Comment on above: Levels of Specific I gE Class Description of Class ----- < 0.10 0 Negative 0.10 - 0.31 0/I Equivocal/Low 0.32 - 0.55 I Low 0.56 - 1.40 II Moderate 1.41 - 3.90 III High 3.91 - 19.00 IV Very High 19.01 - 100.00 V Very High >100.00 Very High Baez antibody assayOrdered By: Alejandro Roy on 07-05-2024 SM Antibody TNP [facility] Comment on above: Test not performed Sodium levelOrdered By: Avril Cárdenas on 07-05-2024 Sodium [Moles/Vol] 139 mmol/L 136-145 [facility] Soybean IgE Qn (S)Ordered By : Alejandro Roy on 07-05-2024 Soybean Allergen (RAST) <0.10 kU/L Class 0 [facility] Total proteinOrdered By: Wilian Roy on 07-05-2024 Protein [Mass/Vol] 8.0 g/dL 6.4-8.2 [facility] Tuna IgE Qn (S)Ordered By: Mathieu Roy on 07-05-2024 Tuna Allergen (RAST) <0.10 kU/L Class 0 [facility] Wheat IgE Qn (S)Ordered By: Alejandro Roy on 07-05-2024 Wheat Allergen (RAST) <0.10 kU/L Class 0 [facility] [place] IgE Qn (S)Ordered By: Alejandro Roy on 07-05-2024 [place] Allergen <0.10 kU/L [facility] [place] IgE Qn (S)Ordered By: Alejandro Roy on 07-05-2024 [place] Tree Allergen <0.10 kU/L Class 0 [facility] Whole Egg IgE Qn (S)Ordered By: Alejandro Roy on 07-05-2024 Egg Whole Allergen <0.10 kU/L Class 0 [facility] tTG IgA Qn (S)Ordered By: Ra lesvia Roy on 07-05-2024 Tissue Transglutaminase IgA Ab <2 U/mL 0-3 [facility] Comment on above: Negative 0 - 3 Weak Positive 4 - 10 Positive >10 Tissue Transglutaminase (tTG) has been identified as the endomysial antigen. Studies have demonstr- ated that endomysial IgA antibodies have over 99% specificity for gluten sensitive enteropathy. Absolute neutrophil countOrd ered By: Radha Rodas on 05-18-2024 Neutrophils (Bld) [#/Vol] 1.5 10*3/uL Low 2.0-7.7 [facility] Albumin to globulin ratioOrd ered By: Radha Rodas on 05-18-2024 Albumin/Globulin [Mass ratio] 0.9 {ratio} 0.9-2.4 [facility] Basophil percentageOrdered B y: Radha Rodas on 05-18-2024 Basophils/100 WBC (Bld) 1.0 % 0-1 [facility] Bilirubin, totalOrdered By: Radha Rodas on 05-18-2024 Bilirubin [Mass/Vol] 0.50 mg/dL 0.20-1.00 [facility] Comment on above: For patients on eltr ombopag therapy, use of Dimension [place] TBIL is not recommended. Blood urea nitrogen (BUN)/cr eatinine ratioOrdered By: Radha Rodas on 05-18-2024 Urea nitrogen/Creatinine [Mass ratio] 33.5 mg/mg High -20 [facility] CBC W/Diff, Automatedon 05-02 Absolute Lymph 2.14 X10 3/uL Normal 0.83-4.51 [facility] Comment on above: Performed By: #### L 500.4100, L100.0100, L501.00515, L506.0400, L500.4050, L501.9520 ####[facility] [address] [place], [address] Absolute Neut 1.5 X10 3/uL Low 2.0-7.7 [facility] Comment on above: Performed By: #### L 500.4100, L100.0100, L501.30568, L506.0400, L500.4050, L501.9520 ####[facility] [address] [place], [address] Basophils/100 WBC (Bld) 1.0 % Normal 0-1 [facility] Comment on above: Performed By: #### L 500.4100, L100.0100, L501.35987, L506.0400, L500.4050, L501.9520 ####[facility] [address] [place], [address] Eosinophils/100 WBC (Bld) 1.4 % Normal 0-5 [facility] Comment on above: Performed By: #### L 500.4100, L100.0100, L501.67812, L506.0400, L500.4050, L501.9520 ####[facility] [address] [place], [address] Erythrocyte distribution width (RBC) [Ratio] 13.7 % Normal 11.6-14.6 [facility] Comment on above: Performed By: #### L 500.4100, L100.0100, L501.40873, L506.0400, L500.4050, L501.9520 ####[facility] [address] [place], [address] Hematocrit (Bld) [Volume fraction] 39.0 % Normal 37-47 [facility] Comment on above: Performed By: #### L 500.4100, L100.0100, L501.38078, L506.0400, L500.4050, L501.9520 ####[facility] [address] [place], [address] Hemoglobin (Bld) [Mass/Vol] 13.1 g/dL Normal 12.0-15.0 [facility] Comment on above: Performed By: #### L 500.4100, L100.0100, L501.99173, L506.0400, L500.4050, L501.9520 ####[facility] [address] [place], [address] IG% 0.200 Normal 0.0-0.9 [facility] Comment on above: Result Comment: IG% - Immature Granulocytes (promyelocytes, myelocytes and metamyelocytes) > 1% indicates that a LEFT SHIFT is Present. Performed By: #### L 500.4100, L100.0100, L501.52089, L506.0400, L500.4050, L501.9520 ####[facility] [address] [place], [address] Lymphocytes/100 WBC (Bld) 51.1 % High 19-41 [facility] Comment on above: Performed By: #### L 500.4100, L100.0100, L501.79263, L506.0400, L500.4050, L501.9520 ####[facility] [address] [place], [address] MCH (RBC) [Entitic mass] 28.6 pg Normal 27.0-32.0 [facility] Comment on above: Performed By: #### L 500.4100, L100.0100, L501.93279, L506.0400, L500.4050, L501.9520 ####[facility] [address] [place], [address] MCHC (RBC) [Mass/Vol] 33.6 g/dL Normal 32-36 [facility] Comment on above: Performed By: #### L 500.4100, L100.0100, L501.13068, L506.0400, L500.4050, L501.9520 ####[facility] [address] [place], [address] MCV (RBC) [Entitic vol] 85.2 fL Normal 81-99 [facility] Comment on above: Performed By: #### L 500.4100, L100.0100, L501.37342, L506.0400, L500.4050, L501.9520 ####[facility] [address] [place], [address] Monocytes/100 WBC (Bld) 11.7 % High 0-10 [facility] Comment on above: Performed By: #### L 500.4100, L100.0100, L501.22419, L506.0400, L500.4050, L501.9520 ####[facility] [address] [place], [address] Neutrophils/100 WBC (Bld) 34.6 % Low 47-70 [facility] Comment on above: Performed By: #### L 500.4100, L100.0100, L501.36842, L506.0400, L500.4050, L501.9520 ####[facility] [address] [place], [address] Nucleated RBC (Bld) [#/Vol] 0 10*3/uL Normal 0-5 [facility] Comment on above: Performed By: #### L 500.4100, L100.0100, L501.71957, L506.0400, L500.4050, L501.9520 ####[facility] [address] [place], [address] Platelet mean volume (Bld) [Entitic vol] 8.8 fL Normal 6.2-12.0 [facility] Comment on above: Performed By: #### L 500.4100, L100.0100, L501.10389, L506.0400, L500.4050, L501.9520 ####[facility] [address] [place], [address] Platelets (Bld) [#/Vol] 187 10*3/uL Normal 150-450 [facility] Comment on above: Performed By: #### L 500.4100, L100.0100, L501.41865, L506.0400, L500.4050, L501.9520 ####[facility] [address] [place], [address] RBC (Bld) [#/Vol] 4.58 10*6/uL Normal 4.2-5.4 [facility] Comment on above: Performed By: #### L 500.4100, L100.0100, L501.60957, L506.0400, L500.4050, L501.9520 ####[facility] [address] [place], [address] RDW SD 42.4 fl Normal 35.1-43.9 [facility] Comment on above: Performed By: #### L 500.4100, L100.0100, L501.26358, L506.0400, L500.4050, L501.9520 ####[facility] [address] [place], [address] WBC (Bld) [#/Vol] 4.2 10*3/uL Low 4.4-11.0 [facility] Comment on above: Performed By: #### L 500.4100, L100.0100, L501.10966, L506.0400, L500.4050, L501.9520 ####[facility] [address] [place], [address] Carbon dioxide measurementOr dered By: Radha Rodas on 05-18-2024 CO2 [Moles/Vol] 29.0 mmol/L 21.0-32.0 [facility] Chloride measurementOrdered By: Radha Rodas on 05-18-2024 Chloride [Moles/Vol] 109 mmol/L High 98-107 [facility] Comprehensive Metabolic Prof ilon 05-18-2024 Albumin [Mass/Vol] 3.5 g/dL Normal 3.2-5.0 [facility] Comment on above: Performed By: #### L 500.4100, L100.0100, L501.86889, L506.0400, L500.4050, L501.9520 ####[facility] [address] [place], [address] Albumin/Globulin [Mass ratio] 0.9 {ratio} Normal 0.9-2.4 [facility] Comment on above: Performed By: #### L 500.4100, L100.0100, L501.34495, L506.0400, L500.4050, L501.9520 ####[facility] [address] [place], [address] ALK P 68 U/L Normal 45-117 [facility] Comment on above: Performed By: #### L 500.4100, L100.0100, L501.81638, L506.0400, L500.4050, L501.9520 ####[facility] [address] [place], [address] ALT [Catalytic activity/Vol] 37 U/L Normal 13-56 [facility] Comment on above: Performed By: #### L 500.4100, L100.0100, L501.99939, L506.0400, L500.4050, L501.9520 ####[facility] [address] [place], [address] AST [Catalytic activity/Vol] 37 U/L Normal 15-37 [facility] Comment on above: Performed By: #### L 500.4100, L100.0100, L501.05894, L506.0400, L500.4050, L501.9520 ####[facility] [address] [place], [address] Bilirubin [Mass/Vol] 0.50 mg/dL Normal 0.20-1.00 [facility] Comment on above: Result Comment: For patients on eltrombopag therapy, use of Dimension [place] TBIL is not recommended. Performed By: #### L 500.4100, L100.0100, L501.76007, L506.0400, L500.4050, L501.9520 ####[facility] [address] [place], [address] BUN/CRE 33.5 RATIO High 10-20 [facility] Comment on above: Performed By: #### L 500.4100, L100.0100, L501.08033, L506.0400, L500.4050, L501.9520 ####[facility] [address] [place], [address] CA,Total 8.7 mg/dL Normal 8.5-10.1 [facility] Comment on above: Performed By: #### L 500.4100, L100.0100, L501.20850, L506.0400, L500.4050, L501.9520 ####[facility] [address] [place], [address] Chloride [Moles/Vol] 109 mmol/L High 98-107 [facility] Comment on above: Performed By: #### L 500.4100, L100.0100, L501.42904, L506.0400, L500.4050, L501.9520 ####[facility] [address] [place], [address] CO2 [Moles/Vol] 29.0 mmol/L Normal 21.0-32.0 [facility] Comment on above: Performed By: #### L 500.4100, L100.0100, L501.06021, L506.0400, L500.4050, L501.9520 ####[facility] [address] [place], [address] Creatinine [Mass/Vol] 0.72 mg/dL Normal 0.55-1.02 [facility] Comment on above: Result Comment: The validity of the calculated GFR GFRAA in patients over 70 years has not been determined. Clinical correlation is essential. Performed By: #### L 500.4100, L100.0100, L501.96099, L506.0400, L500.4050, L501.9520 ####[facility] [address] [place], [address] EST GFR - AA 102 mL/min Normal >60 [facility] Comment on above: Result Comment: Afri can [place] GFR Calc Performed By: #### L 500.4100, L100.0100, L501.00251, L506.0400, L500.4050, L501.9520 ####[facility] [address] [place], [address] GAP 2 Low 5-15 [facility] Comment on above: Performed By: #### L 500.4100, L100.0100, L501.65209, L506.0400, L500.4050, L501.9520 ####[facility] [address] [place], [address] GFR/1.73 sq M.predicted among non-blacks MDRD (S/P/Bld) [Vol rate/Area] 84 mL/min/{1.73_m2} Normal >60 [facility] Comment on above: Result Comment: Non- GFR Calc Performed By: #### L 500.4100, L100.0100, L501.67985, L506.0400, L500.4050, L501.9520 ####[facility] [address] [place], [address] Globulin (S) [Mass/Vol] 3.9 g/dL Normal 2.2-4.2 [facility] Comment on above: Performed By: #### L 500.4100, L100.0100, L501.36035, L506.0400, L500.4050, L501.9520 ####[facility] [address] [place], [address] Glucose [Mass/Vol] 99 mg/dL Normal 74-106 [facility] Comment on above: Performed By: #### L 500.4100, L100.0100, L501.92219, L506.0400, L500.4050, L501.9520 ####[facility] [address] [place], [address] Potassium [Moles/Vol] 3.9 mmol/L Normal 3.5-5.1 [facility] Comment on above: Performed By: #### L 500.4100, L100.0100, L501.33822, L506.0400, L500.4050, L501.9520 ####[facility] [address] [place], [address] Sodium [Moles/Vol] 140 mmol/L Normal 136-145 [facility] Comment on above: Performed By: #### L 500.4100, L100.0100, L501.19140, L506.0400, L500.4050, L501.9520 ####[facility] [address] [place], [address] T PROT 7.4 g/dL Normal 6.4-8.2 [facility] Comment on above: Performed By: #### L 500.4100, L100.0100, L501.99749, L506.0400, L500.4050, L501.9520 ####[facility] [address] [place], [address] Urea nitrogen [Mass/Vol] 24 mg/dL High 7-18 [facility] Comment on above: Performed By: #### L 500.4100, L100.0100, L501.22706, L506.0400, L500.4050, L501.9520 ####[facility] [address] [place], [address] Direct serum free thyroxine (FT4) measurementOrdered By: Radha Rodas on 05-18-2024 Free T4 [Mass/Vol] 0.92 ng/dL 0.76-1.46 [facility] Eosinophil percentageOrdered By: Radha Rodas on 05-18-2024 Eosinophils/100 WBC (Bld) 1.4 % 0-5 [facility] Erythrocyte distribution wid th (RBC) [Ratio]Ordered By: Radha Rodas on 05-18-2024 Erythrocyte distribution width (RBC) [Entitic vol] 42.4 fL 35.1-43.9 [facility] Erythrocyte distribution wid th ratioOrdered By: Radha Rodas on 05-18-2024 Erythrocyte distribution width (RBC) [Ratio] 13.7 % 11.6-14.6 [facility] Estimated glomerular filtrat ion rate (GFR) AmericanOrdered By: Radha Rodas on 05-18-2024 Estimated GFR (MDRD) Amer 102 mL/min >60 [facility] Comment on above: GFR Calc Free T3on 05-18-2024 Free T3 [Mass/Vol] 2.8 pg/mL Normal 2.18-3.98 [facility] Comment on above: Performed By: #### L 500.4100, L100.0100, L501.58726, L506.0400, L500.4050, L501.9520 ####[facility] [address] [place], [place], [id number] Free I2Frjcnea By: Radha Benavides s on 05-18-2024 Free Triiodothyronine (T3) pg/dL 2.8 pg/mL 2.18-3.98 [facility] Glomerular filtration rate ( GFR) estimationOrdered By: Radha Rodas on 05-18-2024 Estimated GFR (MDRD) Non-Af Amer 84 mL/min >60 [facility] Comment on above: Non- GFR Calc Glucose measurementOrdered B y: Radha Rodas on 05-18-2024 Glucose [Mass/Vol] 99 mg/dL 74-106 [facility] Hematocrit Auto (Bld) [Volum e fraction]Ordered By: Radha Rodas on 05-18-2024 Hematocrit (Bld) [Volume fraction] 39.0 % 37-47 [facility] Hemoglobin measurementOrdere d By: Radha Rodas on 05-18-2024 Hemoglobin (Bld) [Mass/Vol] 13.1 g/dL 12.0-15.0 [facility] High density lipoprotein (HD L) measurementOrdered By: Radha Rodas on 05-18-2024 Cholesterol in HDL [Mass/Vol] 57 mg/dL >40 [facility] Comment on above: The drugs N-Acetylcy steine and Metamizole may falsely depress this assay. Reference Range HDL <40 mg/dL Low HDL Cholesterol HDL >or= 60 mg/dL High HDL Cholesterol Immature granulocytes/100 WB C Auto (Bld)Ordered By: Radha Rodas on 05-18-2024 Immature granulocytes/100 WBC (Bld) 0.200 % 0.0-0.9 [facility] Comment on above: IG% - Immature Granu locytes (promyelocytes, myelocytes and metamyelocytes) > 1% indicates that a LEFT SHIFT is Present. Laboratory - Chemistry and C hemistry - challengeOrdered By: Radha Rodas on 05-18-2024 AST [Catalytic activity/Vol] 37 U/L 15-37 [facility] Lipid Profileon 05-18-2024 Cholesterol [Mass/Vol] 222 mg/dL High 200 [facility] Comment on above: Result Comment: <200 mg/dL Desirable 200-240 mg/dL Borderline >240 mg/dL High Risk Performed By: #### L 500.4100, L100.0100, L501.97328, L506.0400, L500.4050, L501.9520 ####[facility] [address] [place], [address] Cholesterol in HDL [Mass/Vol] 57 mg/dL Normal [facility] Comment on above: Result Comment: The drugs N-Acetylcysteine and Metamizole may falsely depress this assay. Reference Range HDL <40 mg/dL Low HDL Cholesterol HDL >or= 60 mg/dL High HDL Cholesterol Performed By: #### L 500.4100, L100.0100, L501.33209, L506.0400, L500.4050, L501.9520 ####[facility] [address] [place], [address] Cholesterol in LDL [Mass/Vol] 135 mg/dL High 0-130 [facility] Comment on above: Performed By: #### L 500.4100, L100.0100, L501.14968, L506.0400, L500.4050, L501.9520 ####[facility] [address] [place], [address] Cholesterol in VLDL [Mass/Vol] 30 mg/dL Normal 5-40 [facility] Comment on above: Performed By: #### L 500.4100, L100.0100, L501.32408, L506.0400, L500.4050, L501.9520 ####[facility] [address] [place], [place], [id number] Triglyceride [Mass/Vol] 150 mg/dL Normal [facility] Comment on above: Result Comment: The drugs N-Acetylcysteine and Metamizole may falsely depress this assay. Serum Triglycerides Reference Interval Normal <150 mg/dL Borderline high 150 - 199 mg/dL High 200 - 499 mg/dL Very High > or = 500 mg/dL Performed By: #### L 500.4100, L100.0100, L501.02027, L506.0400, L500.4050, L501.9520 ####[facility] [address] [facility] [place], [place], [id number] Low density lipoprotein (LDL ) cholesterol measurementOrdered By: Radha Rodas on 05-18-2024 Cholesterol in LDL [Mass/Vol] 135 mg/dL High 0-130 [facility] Lymphocytes Auto (Unsp spec) [#/Vol]Ordered By: Radha Rodas on 05-18-2024 Lymphocytes (Bld) [#/Vol] 2.14 10*3/uL 0.83-4.5 1 [facility] Lymphocytes/100 WBC Auto (Un sp spec)Ordered By: Radha Rodas on 05-18-2024 Lymphocytes/100 WBC (Bld) 51.1 % High 19-41 [facility] MCV (mean corpuscular volume ) determinationOrdered By: Radha Rodas on 05-18-2024 MCV (RBC) [Entitic vol] 85.2 fL 81-99 [facility] Mean corpuscular hemoglobin (MCH) determinationOrdered By: Radha Rodas on 05-18-2024 MCH (RBC) [Entitic mass] 28.6 pg 27.0-32.0 [facility] Mean corpuscular hemoglobin concentration (MCHC) determinationOrdered By: Radha Rodas on 05-18-2024 MCHC (RBC) [Mass/Vol] 33.6 g/dL 32-36 [facility] Mean platelet volume determi nationOrdered By: Radha Rodas on 05-18-2024 Platelet mean volume (Bld) [Entitic vol] 8.8 fL 6.2-12.0 [facility] Monocyte percentageOrdered B y: Radha Rodas on 05-18-2024 Monocytes/100 WBC (Bld) 11.7 % High 0-10 [facility] Neutrophil percentageOrdered By: Radha Rodas on 05-18-2024 Neutrophils/100 WBC (Bld) 34.6 % Low 47-70 [facility] Nucleated red blood cell per centageOrdered By: Radha Rodas on 05-18-2024 Nucleated RBC/100 WBC (Bld) [Ratio] 0 % 0-5 [facility] Platelet countOrdered By: Arelis Rodas on 05-18-2024 Platelets (Bld) [#/Vol] 187 10*3/uL 150-450 [facility] Potassium measurementOrdered By: Radha Rodas on 05-18-2024 Potassium [Moles/Vol] 3.9 mmol/L 3.5-5.1 [facility] RBC Auto (Bld) [#/Vol]Ordere d By: Radha Rodas on 05-18-2024 RBC (Bld) [#/Vol] 4.58 10*6/uL 4.2-5.4 [facility] Serum anion gap measurementO rdered By: Radha Rodas on 05-18-2024 Anion gap [Moles/Vol] 2 mmol/L Low 5-15 [facility] Serum globulin measurementOr dered By: Radha Rodas on 05-18-2024 Globulin (S) [Mass/Vol] 3.9 g/dL 2.2-4.2 [facility] Serum or plasma alanine hoff otransferase (ALT) measurementOrdered By: Radha Rodas on 05-18-2024 ALT [Catalytic activity/Vol] 37 U/L 13-56 [facility] Serum or plasma albumin benito urement (mass/volume)Ordered By: Radha Rodas on 05-18-2024 Albumin [Mass/Vol] 3.5 g/dL 3.2-5.0 [facility] Serum or plasma alkaline ruiz sphatase measurementOrdered By: Radhakaz Rodas on 05-18-2024 ALP [Catalytic activity/Vol] 68 U/L 45-117 [facility] Serum or plasma calcium benito urement (mass/volume)Ordered By: Radha Rodas on 05-18-2024 Calcium [Mass/Vol] 8.7 mg/dL 8.5-10.1 [facility] Serum or plasma cholesterol measurement (mass/volume)Ordered By: Radha Rodas on 05-18-2024 Cholesterol [Mass/Vol] 222 mg/dL High <200 [facility] Comment on above: <200 mg/dL Desirable 200-240 mg/dL Borderline >240 mg/dL High Risk Serum or plasma creatinine m easurement (mass/volume)Ordered By: Radha Rodas on 05-18-2024 Creatinine [Mass/Vol] 0.72 mg/dL 0.55-1.02 [facility] Comment on above: The validity of the calculated GFR & GFRAA in patients over 70 years has not been determined. Clinical correlation is essential. Serum or plasma urea nitroge n measurement (mass/volume)Ordered By: Radha Rodas on 05-18-2024 Urea nitrogen [Mass/Vol] 24 mg/dL High 7-18 [facility] Sodium levelOrdered By: Radha Rodas on 05-18-2024 Sodium [Moles/Vol] 140 mmol/L 136-145 [facility] T4 Free Directon 05-18-2024 T4 FREE DIRECT 0.92 ng/dL Normal 0.76-1.46 [facility] Comment on above: Performed By: #### L 500.4100, L100.0100, L501.22834, L506.0400, L500.4050, L501.9520 ####[facility] [address] [place], [place], [id number] TSH QnOrdered By: Radha Rodas on 05-18-2024 Thyroid Stimulating Hormone (TSH) 3.540 uIU/mL 0.358-3.74 0 [facility] Thyroid Stim Hormone (TSH)on 05-18-2024 TSH 3.540 uIU/mL Normal 0.358-3.74 0 [facility] Comment on above: Performed By: #### L 500.4100, L100.0100, L501.28494, L506.0400, L500.4050, L501.9520 ####[facility] [address] [place], [address] Total proteinOrdered By: Sun Rodas on 05-18-2024 Protein [Mass/Vol] 7.4 g/dL 6.4-8.2 [facility] Triglycerides measurementOrd ered By: Radha Melgozakevin on 05-18-2024 Triglyceride [Mass/Vol] 150 mg/dL <199 [facility] Comment on above: The drugs N-Acetylcy steine and Metamizole may falsely depress this assay.Serum Triglycerides Reference Interval Normal <150 mg/dL Borderline high 150 - 199 mg/dL High 200 - 499 mg/dL Very High > or = 500 mg/dL Very low density lipoprotein (VLDL) cholesterol measurementOrdered By: Radhakaz Rodas on 05-18-2024 VLDL Cholesterol 30 mg/dL 5-40 [facility] White blood cell (WBC) count Ordered By: Radha Melgozakevin on 05-18-2024 WBC (Bld) [#/Vol] 4.2 10*3/uL Low 4.4-11.0 [facility] Absolute lymphocyte countOrd ered By: Radha Rodas on 05-10-2023 Lymphocytes Auto (Unsp spec) [#/Vol] 2.43 10*3/uL 0.83-4.51 [facility] Basophil percentageOrdered B y: Radha Rodas on 05-10-2023 Basophils/100 WBC (Bld) 0.9 % 0-1 [facility] Bilirubin [Mass/Vol] 0.30 mg/dL 0.20-1.00 [facility] Comment on above: For patients on eltr ombopag therapy, use of Dimension [place] TBIL is not recommended. Chloride [Moles/Vol] 110 mmol/L 98-107 [facility] Cholesterol [Mass/Vol] 210 mg/dL <200 [facility] Comment on above: <200 mg/dL Desirable 200-240 mg/dL Borderline >240 mg/dL High Risk Eosinophils/100 WBC (Bld) 0.9 % 0-5 [facility] Glucose [Mass/Vol] 95 mg/dL 74-106 [facility] Neutrophils (Bld) [#/Vol] 1.5 10*3/uL 2.0-7.7 [facility] Neutrophils/100 WBC (Bld) 33.2 % 47-70 [facility] Potassium [Moles/Vol] 4.0 mmol/L 3.5-5.1 [facility] Protein [Mass/Vol] 7.2 g/dL 6.4-8.2 [facility] Sodium [Moles/Vol] 140 mmol/L 136-145 [facility] Triglyceride [Mass/Vol] 157 mg/dL <199 [facility] Comment on above: The drugs N-Acetylcy steine and Metamizole may falsely depress this assay.Serum Triglycerides Reference Interval Normal <150 mg/dL Borderline high 150 - 199 mg/dL High 200 - 499 mg/dL Very High > or = 500 mg/dL WBC (Bld) [#/Vol] 4.5 10*3/uL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 Comment on above: Performed By: #### C BC1 #### [facility] [address] [place] [address] MCV (RBC) [Entitic vol] 88.1 fL Normal 79.4-94.8 [facility] Comment on above: Performed By: #### C BC1 #### [facility] [address] [place] [address] Platelet mean volume (Bld) [Entitic vol] 8.8 fL Low 9.4-12.3 [facility] Comment on above: Performed By: #### C BC1 #### [facility] [address] [place], [place] [address] Platelets (Bld) [#/Vol] 213 thou/cmm Normal 182-369 [facility] Comment on above: Performed By: #### C BC1 #### [facility] [address] [place], [place] [address] RBC (Bld) [#/Vol] 4.04 mil/cmm Normal 3.93-5.22 [facility] Comment on above: Performed By: #### C BC1 #### [address] [address] RDW SD 44.9 fl Normal 36.4-46.3 [facility] Comment on above: Performed By: #### C BC1 #### [facility] 1 [place], [place] [address] WBC (Bld) [#/Vol] 5.08 thou/cmm Normal 3.98-10.04 [facility] Comment on above: Performed By: #### C BC1 #### [address] [address] Lipase Bloodon 12-13-2018 Lipase Blood 100 U/L Normal 73-393 [facility] Comment on above: Performed By: #### L IP #### [address] [address] MDRD GFRon 12-13-2018 GFR/1.73 sq M predicted among non-blacks MDRD (S/P/Bld) [Vol rate/Area] mL/min/{1.73_m2} Normal >60mL/min/ 1.73m2 [facility] Comment on above: Result Comment: If t he patient is , multiply the result by 1.210. Performed By: #### G FR #### [place] [address] Protimeon 12-13-2018 INR Coag (PPP) [Relative time] 1.05 {INR} Normal 0.90-1.30 [facility] Comment on above: Result Comment: Jenna min K Antagonist (VKA) Therapeutic Range: INR 2 to 3 (Target INR of 2.5) Note: For patients treated with VKA drugs, such as warfarin, the [place] [employer] 2012 Guideline recommends [...] to 3.5 target INR of 3). Prerna GTZ, et al. Chest 2012; 141:7S-47S Priscilla JOSE et al. [facility] 2017; 70: 252-289 Performed By: #### P T #### [place] [address] PT Coag (PPP) [Time] 10.9 s Normal 9.7-13.0 [facility] Comment on above: Performed By: #### P T #### [place] [address] Type and Screenon 12-13-2018 ABO group Nom (Bld) A Normal [facility] Comment on above: Performed By: #### T &S #### [place] [address] Comment See Below Normal [facility] Comment on above: Result Comment: Scre en &/or Xmatch expires in 3 days at 12 midnight. Redraw patient at that time. Performed By: #### T &S #### [place] [address] RH Type Positive Normal [facility] Comment on above: Performed By: #### T &S #### [place] [address] Culture, urine Bacteria identified Cx Nom (U) Escherichia coli [facility] Work Phone: Vital Signs Date Time Vital Sign Value Performing Clinician Erum mancuso 02-10-2025 13:28-0400 Body height 157.[address] Radha Rodas DO Work Phone: [facility] 02-10-2025 13:28-0400 Body mass index (BMI) [Ratio] 24 kg/m2 Dr. Radha Rodas DO Work Phone: [facility] 02-10-2025 13:28-0400 Body temperature 98.4 [degF] Dr. Radha Rodas DO Work Phone: [facility] 02-10-2025 13:28-0400 Body weight 59.[address] Radha Rodas DO Work Phone: [facility] 02-10-2025 13:28-0400 Diastolic blood pressure 69 mm[Hg] Dr. Radha Rodas DO Work Phone: [facility] 02-10-2025 13:28-0400 Heart rate 58 /min Dr. Radha Rodas DO Work Phone: [facility] 02-10-2025 13:28-0400 Respiratory rate 18 /min Dr. Radha Rodas DO Work Phone: [facility] 02-10-2025 13:28-0400 SaO2% (BldA) [Mass fraction] 99 % Dr. Radha Rodas DO Work Phone: [facility] 02-10-2025 13:28-0400 Systolic blood pressure 113 mm[Hg] Dr. Radha Rodas DO Work Phone: [facility] 11-17-2024 07:38-0400 Body temperature 97.9 [degF] Dr. Alejandro Ryo DO Work Phone: [facility] 11-17-2024 07:38-0400 Diastolic blood pressure 60 mm[Hg] Dr. Alejandro Roy DO Work Phone: [facility] 11-17-2024 07:38-0400 Heart rate 49 /min Dr. Alejandro Roy DO Work Phone: [facility] 11-17-2024 07:38-0400 Respiratory rate 16 /min Dr. Alejandro Roy DO Work Phone: [facility] 11-17-2024 07:38-0400 SaO2% (BldA) [Mass fraction] 100 % Dr. Alejandro Roy DO Work Phone: [facility] 11-17-2024 07:38-0400 Systolic blood pressure 96 mm[Hg] Dr. Alejandro Roy DO Work Phone: [facility] 11-17-2024 05:55-0400 Body height 157.[address] Alejandro Roy DO Work Phone: [facility] 11-17-2024 05:55-0400 Body mass index (BMI) [Ratio] 22.9 kg/m2 Dr. lAejandro Roy DO Work Phone: [facility] 11-17-2024 05:55-0400 Body weight [address] Alejandro Roy DO Work Phone: [facility] 10-21-2024 14:01-0400 Body mass index (BMI) [Ratio] 23.5 kg/m2 Dr. Alejandro Roy DO Work Phone: [facility] 10-21-2024 14:01-0400 Body temperature 98.9 [degF] Dr. Alejandro Roy DO Work Phone: [facility] 10-21-2024 14:01-0400 Body weight 58.[address] Alejandro Roy DO Work Phone: [facility] 10-21-2024 14:01-0400 Diastolic blood pressure 71 mm[Hg] Dr. Alejandro Roy DO Work Phone: [facility] 10-21-2024 14:01-0400 Heart rate 57 /min Dr. Alejandro Roy DO Work Phone: [facility] 10-21-2024 14:01-0400 Respiratory rate 18 /min Dr. Alejandro Roy DO Work Phone: [facility] 10-21-2024 14:01-0400 SaO2% (BldA) [Mass fraction] 99 % Dr. Alejandro Roy DO Work Phone: [facility] 10-21-2024 14:01-0400 Systolic blood pressure 117 mm[Hg] Dr. Alejandro Roy DO Work Phone: [facility] 08-26-2024 15:08-0400 Body height 157.[address] Radha Rodas DO Work Phone: [facility] 08-26-2024 15:06-0400 Body mass index (BMI) [Ratio] 24.2 kg/m2 Dr. Radha Rodas DO Work Phone: [facility] 08-26-2024 15:06-0400 Body temperature 98.4 [degF] Dr. Radha Rodas DO Work Phone: [facility] 08-26-2024 15:06-0400 Body weight 60.[address] Radha Rodas DO Work Phone: [facility] 08-26-2024 15:06-0400 Diastolic blood pressure 76 mm[Hg] Dr. Radha Rodas DO Work Phone: [facility] 08-26-2024 15:06-0400 Heart rate 71 /min Dr. Radha Rodas DO Work Phone: [facility] 08-26-2024 15:06-0400 Respiratory rate 18 /min Dr. Radha Rodas DO Work Phone: [facility] 08-26-2024 15:06-0400 SaO2% (BldA) [Mass fraction] 98 % Dr. Radha Rodas DO Work Phone: [facility] 08-26-2024 15:06-0400 Systolic blood pressure 119 mm[Hg] Dr. Radha Rodas DO Work Phone: [facility] 02-15-2023 09:19-0400 Body height 157.[address] Radha Rodas Work Phone: [facility] 02-15-2023 09:19-0400 Body mass index (BMI) [Ratio] 24.3 kg/m2 Dr. Radha Rodas Work Phone: [facility] 02-15-2023 09:19-0400 Body temperature 98.7 [degF] Dr. Radha Rodas Work Phone: [facility] 02-15-2023 09:19-0400 Body weight 60.[address] Radha Rodas Work Phone: [facility] 02-15-2023 09:19-0400 Diastolic blood pressure 74 mm[Hg] Dr. Radha Rodas Work Phone: [facility] 02-15-2023 09:19-0400 Systolic blood pressure 132 mm[Hg] Dr. Radha Rodas Work Phone: [facility] 03-02-2022 08:19-0400 Body temperature 98.1 [degF] Dr. Radha Rodas Work Phone: [facility] Work Phone: 03-02-2022 08:19-0400 Diastolic blood pressure 66 mm[Hg] Dr. Radha Rodsa Work Phone: [facility] Work Phone: 03-02-2022 08:19-0400 Heart rate 51 /min Dr. Radha Rodas Work Phone: [facility] Work Phone: 03-02-2022 08:19-0400 Respiratory rate 14 /min Dr. Radha Rodas Work Phone: [facility] Work Phone: 03-02-2022 08:19-0400 SaO2% (BldA) [Mass fraction] 99 % Dr. Radha Rodas Work Phone: [facility] Work Phone: 03-02-2022 08:19-0400 Systolic blood pressure 118 mm[Hg] Dr. Radha Rodas Work Phone: [facility] Work Phone: Encounters Encounter Date Encounter Type Care Provider Facility Start: 04-06-2025 [facility] Start: 04-01-2025 End: 04-03-2025 Evaluation and management of inpatient [facility] Facility:[facility] Start: 04-01-2025 ambulatory [facility] Facility: [facility] Start: 03-31-2025 ambulatory Alejandro Roy Facility :[facility] Start: 03-31-2025 End: 03-31-2025 [facility] Start: 02-10-2025 End: 02-10-[address] Meet Santos MD -[facility] Work Phone: Start: 02-10-2025 End: 02-10-[address] Radha Rodas DO Work Phone: -[facility] Start: 02-03-2025 ambulatory Meet Santos Facility:[facility] Start: 02-03-[address] Meet Santos MD -[facility] Start: 01-27-2025 End: 01-27-2025 Patient encounter procedure Alejandro Roy DO -[facility] Work Phone: Start: 01-27-2025 End: 01-27-[address] Meet Santos MD Work Phone: -[facility] Start: 12-01-2024 End: 12-01-[address] Alejandro Roy DO Work Phone: [facility] Start: 12-01-2024 End: 12-01-2024 Patient encounter procedure Alejandro Roy DO -[facility] Work Phone: Start: 12-01-2024 End: 12-01-2024 ambulatory Alejandro Roy Facility:[facility] Start: 11-17-2024 ambulatory Alejandro Roy Facility :[facility] Start: 11-17-2024 Non-patient / Non-visit Alejandro Roy DO -[facility] Start: 11-17-2024 End: 11-17-2024 Admission to same day surgery center Alejandro Roy DO -Endoscopy Work Phone: Start: 11-17-2024 End: 11-17-[address] Alejandro Roy DO Work Phone: [facility] Work Phone: Start: 10-21-2024 End: 10-21-[address] Meet Santos MD -[facility] Work Phone: Start: 10-21-2024 End: 10-21-2024 [facility] Start: 10-18-2024 End: 10-18-2024 Patient encounter procedure Alejandro Roy DO -[facility] Work Phone: Start: 10-18-2024 End: 10-18-[address] Radha Rodas DO Work Phone: [facility] Work Phone: Start: 10-14-[address] Meet Santos MD -[facility] Start: 09-08-2024 End: 09-08-[address] Radha Rodas DO Work Phone: [facility] Work Phone: Start: 09-08-2024 End: 09-08-[address] Meet Santos MD -Radiology, [facility] Work Phone: Start: 09-08-2024 End: 09-08-2024 ambulatory [facility] Facility[facility] Start: 09-06-2024 End: 09-06-[address] Radha Rodas DO Work Phone: [facility] Work Phone: Start: 09-06-2024 End: 09-06-[address] Meet Santos MD -[facility] Work Phone: Start: 09-06-2024 End: 09-06-[facility] Start: 08-26-2024 End: 08-26-[address] Meet Santos MD -[facility] Work Phone: Start: 08-26-2024 End: 08-26-2024 ambulatory Meet Santos Facility:[facility] Start: 07-12-2024 End: 07-12-2024 Patient encounter procedure Azul Mena PA -Laboratory Work Phone: Start: 07-12-2024 End: 07-12-2024 ambulatory Azul Mena Facility:[facility] Start: 07-05-2024 End: 07-05-2024 Patient encounter procedure Alejandro Roy DO -Laboratory Work Phone: Start: 07-05-2024 End: 07-05-2024 Patient encounter procedure Alejandro Roy DO -[facility] Work Phone: Start: 07-05-2024 End: 07-05-2024 ambulatory Alejandro Roy Facility:[facility] Start: 07-05-2024 End: 07-05-2024 ambulatory Alejandro Roy Facility:[facility] Start: 05-18-2024 End: 05-18-[address] Radha Rodas DO -Laboratory Work Phone: Start: 05-18-2024 End: 05-18-2024 ambulatory Radha Rodas Facility:[facility] Start: 05-10-2023 End: 05-10-[address] Radha Rodas Work Phone: [facility] Work Phone: Start: 05-10-2023 End: 05-10-[address] Radha Rodas Work Phone: [facility] Work Phone: Start: 03-18-2023 End: 03-18-[address] Radha Rodas Work Phone: [facility] Work Phone: Start: 03-18-2023 End: 03-18-[address] Radha Rodas Work Phone: [facility] Work Phone: Start: 02-15-2023 End: 02-15-[address] Radha Rodas Work Phone: [facility] Work Phone: Start: 05-02-2022 End: 05-02-[address] Radha Rodas Work Phone: [facility] Work Phone: Start: 05-02-2022 End: 05-02-[address] Radha Rodas Work Phone: [facility] Start: 03-04-2022 End: 03-04-[address] Radha Rodas Work Phone: [facility] Work Phone: Start: 03-04-2022 End: 03-04-[address] [facility] Start: 03-02-2022 End: 03-02-[address] Radha Rodas Work Phone: [facility] Start: 02-14-2022 End: 02-14-[address] Radha Rodas Work Phone: [facility] Work Phone: Start: 02-14-2022 End: 02-14-[address] Radha Rodas Work Phone: [facility] Start: 02-13-2022 End: 02-13-[address] Radha Rodas Work Phone: [facility] Work Phone: Start: 02-13-2022 End: 02-13-[address] Radha Rodas Work Phone: [facility] Start: 01-28-2022 End: 01-28-[address] Radha Rodas Work Phone: [facility] Procedures Date Procedure Procedure Detail [...] Work Phone: Comment on above: Performed at: [place] [id number] [place], [place] [id number] Director: Cristhian Nath PhD, Phone: [phone] Start: 07-05-[address] Radha Rodas DO Work Phone: Start: 07-05-[address] Radha Rodas DO Work Phone: Comment on above: The atypical pANCA pattern has been obse rved in asignificant percentage of patients with ulcerative colitis,primary sclerosing cholangitis and autoimmune hepatitis. Start: 07-05-[address] Radha Rodas DO Work Phone: Start: 07-05-[address] Radha Roads DO Work Phone: Start: 07-05-2024 Endomysial antibody [...] Work Phone: Comment on above: Performed at: [address] [id number] Director: Talia Avendano MD, Phone: [phone] Start: 07-05-2024 Plantain (Mosotho) RAST Dr. Radha Rodas D O Work [...] on above: Test not performed Start: 07-05-2024 DETECTIVE AUTOMOBILE SECTION antibody measurement Dr. Radha Rodas DO Work Phone: Comment on above: Test not performed Start: 03-18-[address] Radha Rodas Work Phone: Start: 02-14-[address] Radha Rodas Work Phone: Start: 01-28-[address] examination [address] knee [address] Radha Rodas Work Phone: Start: 12-13-2018 Antibody screen Comment on above: Performed By: #### T&S #### [place] [address] Radha Roads Work Phone: Plan of Treatment Date Care Activity Detail Author Start: 11-17-2024 Egd transoral biopsy single/multiple EGD BIOPSY SINGLE/MULTIPLE [facility] Start: 11-17-2024 Patient discharge [facility] Start: 10-14-2024 Immunoglobulin measurement [facility] Start: 10-14-2024 Serum immunofixation [facility] Start: 10-14-2024 [facility] Albumin [Moles/volum e] in Serum or Plasma [facility] Albumin/Globulin ratio [facility] C reactive protein [Mass/volume] in Serum or Plasma [facility] CBC W Auto Different ial panel - Blood [facility] CBC W Auto Different ial panel - Blood [facility] Cobalamin (Vitamin B 12) [Mass/volume] in Serum or Plasma [facility] metabo lic 1999 panel - Serum or Plasma [facility] 1999 panel - Serum or Plasma [facility] Electrophoresis: [id number] [facility] Electrophoresis: alicia ma globulin [facility] Erythrocyte sediment ation rate [facility] Globulin measurement [facility] Hepatitis B surface antigen measurement [facility] Hepatitis B virus co re Ab [Presence] in Serum [facility] Hepatitis B virus davidson rface Ab [Units/volume] in Serum by Radioimmunoassay (NANDO) [facility] IgA [Mass/volume] in Serum or Plasma [facility] IgG [Mass/volume] in Serum or Plasma [facility] IgM [Mass/volume] in Serum or Plasma [facility] Immunoglobulin measurement [facility] Immunoglobulin measurement [facility] Central Garage/lambda light c manda ratio [facility] Laboratory data interpretation [facility] Lactate dehydrogenas e measurement [facility] Lambda light chains. free [Mass/volume] in Serum or Plasma [facility] MR Abdomen WO and W contrast IV [facility] Patient Education Urinary Tract Infections in Women [facility] Work Phone: Patient referral [facility] Work Phone: Protein electrophore sis panel - Serum or Plasma [facility] Reticulocyte count [facility] Serum immunofixation [facility] Serum immunofixation [facility] Urine kappa light ch ain measurement [facility] [place] Date Payer Category Payer Medicare [id number] 2024 Self-pay [id number] Medicare [id number] Private Health Insurance [id number] Unknown [id number] Unknown [id number] 2.16.8 40.1.085299.3.579.2.462 Unknown [id number] 2.16.8 40.1.933003.3.579.2.462 Unknown [id number] 2.16.8 40.1.665855.3.579.2.462 Unknown [id number] 2.16.8 40.1.061735.3.579.2.462 Unknown [id number] 2.16.8 40.1.979500.3.579.2.462 Unknown [id number] 2.16.8 40.1.394787.3.579.2.462 Unknown [id number] 2.16.8 40.1.525698.3.579.2.462 Unknown [id number] 2.16.8 40.1.200963.3.579.2.462 Unknown [id number] 2.16.8 40.1.413702.3.579.2.462 Unknown [id number] 2.16.8 40.1.452711.3.579.2.462 Unknown [id number] 2.16.8 40.1.939102.3.579.2.462 Unknown [id number] 2.16.8 40.1.912922.3.579.2.462 Unknown [id number] 2.16.8 40.1.793908.3.579.2.462 Unknown [id number] 2.16.8 40.1.497284.3.579.2.462 Unknown [id number] 2.16.8 40.1.818848.3.579.2.462 Unknown [id number] 2.16.8 40.1.154010.3.579.2.462 Unknown [id number] 2.16.8 40.1.858363.3.579.2.462 Unknown [id number] 2.16.8 40.1.782964.3.579.2.462 Unknown [id number] 2.16.8 40.1.204963.3.579.2.462 Unknown [id number] 2.16.8 40.1.403104.3.579.2.462 Unknown [id number] 2.16.8 40.1.098111.3.579.2.462 Unknown [id number] 2.16.8 40.1.451524.3.579.2.462 Unknown [id number] 2.16.8 40.1.455164.3.579.2.462 Unknown [id number] 2.16.8 40.1.981897.3.579.2.462 Unknown [id number] 2.16.8 40.1.845790.3.579.2.462 Social History Date Type Detail Facility Tobacco smoking stat [facility] Unknown if ever smoked [facility] Work Phone: Start: 1950 Sex Assigned At Female [facility] Start: 01-28-2022 End: 02-15-2023 Tobacco smoking status NVIS Unknown if ever smoked [facility] Start: 08-26-2024 End: 11-15-2024 Tobacco smoking status NHIS Never smoked tobacco (finding) [facility] Start: 09-10-2024 End: 09-14-2024 Sex Female (finding) [facility] Goals Date Patient Goal Desired Activity /State Mental Status Date Assessment Result Facility 11-17-2024 Cognitive function Level Of Consciousness Sedated [facility] Work Phone: 11-17-2024 Cognitive function Voice/Name [facility] Work Phone: Clinical Notes 08-07-2021 to 04-03-2025 Note Date & Type Note Facility 04-03-2025 Note [facility] Medical Records Department [address] [place] [address] Discharge Summary 04/03/25 1243 MR#: [id number] Acct: [id number] Name: OLGA STAFFORD Rep #: [id number] : 1950 75 From: Lionel Lees MD PCP: Dr. Radha Rdoas DO Status:ADM IN Location: [place] [address]-1 Providers Date of Admission: 04/01/25 Primary Care Physician: Dr. Radha Rodas DO Consultations 04/01/25 04:22 Consult: Gastroenterology Routine Consulting Provider: [facility] Reason for Consult: Acute pancreatitis s/p ERCP/stent EMERGENT Consult: No MD Notified: Yes Date Notified: 04/01/25 Time Notified: 02:06 Method of Notification: Text Reason For Visit: ACUTE PANCREATITIS S/P ERCP/STENT Diagnosis Discharge Diagnosis (1) Acute pancreatitis: Status: Acute Code(s): K85.90 - Acute pancreatitis without necrosis or infection, unspecified (2) Abdominal pain, acute: Status: Acute Code(s): R10.9 - Unspecified abdominal pain (3) Choledochocyst: Status: Acute Code(s): 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 Acute pancreatitis probably secondary to ERCP/stent placement: Patient is being admitted to the floor. CT abdomen pelvis reviewed and shows peripancreatic infiltrates, CBD stent in good position, prominent main pancreatic duct, pneumobilia secondary to sphincterotomy and diffuse thickening of stomach and duodenum. Continue NPO. IV fluid resuscitation and pain control. Lipase more than 3000. GI consulted. Serum transaminases, ALP, total bilirubin normal range. Hematocrit 39.7, calcium 8.9 and BUN 18 in normal range. Does not meet criteria for severe pancreatitis. 04/02: Labs reviewed. Hematocrit 31.4%. BUN/creatinine 15/0.53 normal. Started on clear liquid in the morning today advance to full liquid. Abdominal pain is better. Lipase is improved. CA 19-9 is normal. 04/03: Mild hypokalemia, potassium is replaced. Transaminases normal. On 04/02: Albumin 2001, lipase 1035 yesterday #2. Elevated BP without hypertensive diagnosis: BP elevated in the ED, possibly pain related/reactive from acute pancreatitis. Today it is better 133/50 04/03: Blood pressure is normal. #3. MASLD: RUQ ultrasound with elastography 09/06/24 with hepatic measurement 17 cm with fatty infiltration, stiffness measuring at that time 6.8 kPa, patient follows Dr. Ambrocio #4. 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 #6. GERD: Continue IV PPI. #7. DVT prophylaxis: SCDs, enoxaparin ordered Discharge medication reconciliation done. Discharge follow-up instructions completed. Discharge process discussed with the patient and all questions were answered to patient's satisfaction. Follow with PCP in 1 to 2 weeks Total time spent, exact 35 minutes on discharge meds reconciliation, examination, coordination of care with nurses and ancillary staff, review of imaging and blood test and discussion with the patient on follow-up instructions. Laboratory Results 04/01/25 05:49: CA 19-9 Antigen 12 04/02/25 03:36: WBC 5.2, RBC 3.69 L, Hgb 10.7 L, Hct 31.4 L, MCV 85.1, MCH 29.0, MCHC 34.1, RDW Std Deviation 41.1, RDW Coeff of Eulalio 13.2, Plt Count 141 L, MPV 9.5, Immature Gran % (Auto) 0.200, Neut % (Auto) 58.1, Lymph % (Auto) 32.2, [place] % (Auto) 9.1, Eos % (Auto) 0.2, Baso % (Auto) 0.2, Absolute Neuts (auto) 3.0, Absolute Lymphs (auto) 1.67, Nucleated RBC % 0, Sodium 135, Potassium 3.5, Chloride 103, Carbon Dioxide 24.9, Anion Gap 7, BUN 15, Creatinine 0.53 L, Estim Creat Clear Calc 49.30 L, Est GFR (MDRD) Non-Af 96, BUN/Creatinine Ratio 27.4 H, Glucose 106 H, Calcium 7.9, Total Bilirubin 0.50, Direct Bilirubin 0.21, AST 29, ALT 14, Alkaline Phosphatase 47, Total Protein 5.4 L, Albumin 3.3 L, Globulin 2.1 L, Lipase 1035 H Clinical Impression(s) from Imaging Studies Abdomen/Pelvis CT 04/01/25 23:55 IMPRESSION: Mild peripancreatic inflammatory fat stranding suggestive of acute pancreatitis. Mildly prominent pancreatic duct. Common bile duct stent is noted in good position. Mild biliary ductal dilatation. Diffuse thickening of the stomach and the duodenum, possibly reactive or secondary to gastro duodenitis without perforation.. Calcified atheromatous plaques of the aorta and iliac arteries. Small sliding hiatal hernia. Contrast is noted in the gallbladder, benign finding from prior intervention. Pneumobilia is noted, benign finding secondary to prior sphin (more content not included)... [facility] 03-31-2025 Note [facility] Medical Records Department [address] [place] [address] History Physical Exam 03/31/25 0912 MR#: [id number] Acct: [id number] Name: OLGA STAFFORD Rep #: [id number] : 1950 75 From: Alejandro Roy DO PCP: Dr. Radha Rodas, DO Status:REG [facility] Location: AC16-1 HPI - General General Date of Admission: 03/31/25 Date of Service: 03/31/25 HPI Narrative HPI Details: OLGA STAFFORD, is a 74 F who presents to the office today for follow up. *BGI established 2.3 pt reports that for the last several [...] she underwent imaging by her PCP at [facility] that showed a large amount of stool and delayed gastric emptying on a gastric emptying study. From 2013 and 2021 she had random bouts of vomiting probably eating types of foods such as, chickpeas, fish, pepitas, black beans, pecans and walnuts. Her treatment up until 2021 was food avoidance. In July 2021 she had saw an food adviser at previous clinic and was diagnosed with [...] with fatty infiltration, stiffness measures 6.8kPa OV 5 pt reports that she has not eaten any foods that have caused an episode, but states that she is feeling "discouraged" with not having any answers or treatment for her symptoms. Pt reports she is having a bm every 2-3 days and takes Miralax as needed. EGD 11.17.24 Normal esophagus. Biopsied. Erythematous mucosa in the gastric body. Biopsied. Erythematous duodenopathy. Biopsied. abd MRI 12.22.24 1. Somewhat motion limited exam. 2. Fusiform [...] as indicated. 3. Additional description as above. OV 8 pt reports that her "desensitization regimen" went well, but has not been on any medication for December and has had a few "episodes" after having spinach and pumpkin seeds. Pt reports that she is "tired and discouraged" with how she is feeling. PFSH Medical History Loss of hearing Protein intolerance History of steroid therapy Fatty liver Vomiting Heartburn Leg cramps Wears glasses Post-menopausal Alcohol use Arthritis Injury of head and neck Loss of consciousness Non-smoker Home Medications ???Medication ???Instructions ???Recorded ???Last Taken ???Type polyethylene glycol 3350 17 4 g PO QDAY PRN constipation 02/10 Unknown History gram/dose oral powder (Miralax) budesonide 3 mg 6 mg (2 x 3 mg) PO QDAY #60 ea 03/30/25 Rx capsule,delayed,extended release Allergy/AdvReac Type Severity Reaction Status Date / Time Penicillins Allergy Hives Verified 03/31/25 08:10 Family History Mother Hypertension CVA (cerebral vascular accident) Father Hypertension Prostate cancer Surgical History Hx of colonoscopy History of esophagogastroduodenoscopy (EGD) Hx of appendectomy Social History Smoking Status: Never smoker alcohol intake: current alcohol intake frequency: holidays/special occasions only substance use type: does not use what type of physical activity do you participate in: walking and bicycling Vital Signs Vital Signs Vital Signs: 03/31/25 08:15 03/31/25 08:15 Temperature 97.9 F Temperature Source Temporal Pulse Rate 49 L Respiratory Rate 16 Respiratory (more content not included)... [facility] 02-10-2025 Progress note [facility] 02-10-2025 Progress note Note Date/Time February 10, 2025 2:20pm [facility] [place] [address] OFFICE VISIT Date of Service: 02/10/25 1327 MR#: [id number] Acct: [id number] Name: OLGA STAFFORD Rep #: [id number] : 1950 From: Meet Santos MD Age/Sex: 74/F Location: [facility] Status: Signed HPI Subjective Date of Service [...] still getallergic reaction to certain foods. [facility] Medical History Wears glasses Post-menopausal Alcohol use [...] IgM 111 IgE 29 LORENZO M-Fabián Free Central Garage LC, Quant Free Lambda LC, Quant Free Central Garage/Lambda Ratio 10/14/24 02/03/25 14:04 08:17 WBC 4.5 [...] 102 IgE LORENZO M-Fabián Not Observed Free Central Garage LC, Quant 43.2 H Free Lambda LC, Quant 46.9 H Free Central Garage/Lambda Ratio 0.92 Exam Physical Exam Const alert, [...] applicable) CC: Dr. Radha Rodas DO ~ [place] [employer] Work Phone: 1(783) 182-188606-18-2025 Consult note [facility] Medical Records Department [address] [place] [address] Anesthesia Postop Eval I 11/17/24 0711 MR#: [id number] Acct: [id number] Name: OLGA STAFFORD Rep #:[id number] : 1950 74 From: Tomasz Hagan PCP: Dr. Radha Rodas DO Status:REG SDC Y Race: C Location: [place] [address] Anesthesia: Postop Eval I Current Vital Signs [...] Anesthesia document: Postop Eval 1 completed: Yes 11/17/24 0712 > Date _ Tomasz Das Signature: Date CC: ~ Signed [facility]06-18-2025 Procedure note [facility] Medical Records Department [address] [place] [address] EGD Report MR#: [id number] Acct: [id number] Name: OLGA STAFFORD Rep #:[id number] : 1950 74 From: Alejandro Roy DO PCP: Dr. Radha Rodas DO Status:[facility] Patient Name: Olga Stafford Procedure Date: 11/17/2024 [...] pathology results. Procedure Code(s): --- Professional --- 81247, Small intestinal endoscopy, enteroscopy beyond second portion of duodenum, not including ileum; with biopsy, single or multiple CPT copyright 2021 [employer]. All rights reserved. The codes documented in this report are preliminary and upon assistant education director review may be revised to meet current compliance requirements. Alejandro Roy DO 11/17/2024 7:06:53 AM This report has been signed electronically. Number of Addenda: 0 Note Initiated On: 11/17/2024 6:09 AM 11/17/24706 Date _ Alejandro Roy DO Cosigner Signature: Date (if indicated) CC: Dr. Radha Rodas DO; Alejandro Roy DO ~ Date Dictated: 11/17/24608 Date Transcribed: Travograph Operator: RF Signed [facility]06-18-2025 Procedure note [facility] Medical Records Department [address] [place] [address] Operative Report - CC Letter MR#: [id number] Acct: [id number] Name: OLGA STAFFORD Rep #:[id number] : 1950 74 From: Alejandro Roy DO PCP: Dr. Radha Rodas DO Status:[facility] 11/17/2024 Radha Rodas [address] [facility] [place] [address] [place] [address] Re : Upper GI endoscopy procedure for Olga Stafford Dear Dr. Rodas This procedure was performed [...] AM This report has been signed electronically. 06/18/25 0707 Date _ Alejandro Griffin Signature: Date (if indicated) CC: Dr. Radha Rodas DO; Alejandro Roy DO ~ Date Dictated: 11/17/24 0609 Date Transcribed: Travograph Operator: RF Signed [facility]06-18-2025 History and physical note [facility] Medical Records Department [address] [place] [address] History & Physical Exam 11/17/24 0649 MR#: [id number] Acct: [id number] Name: OLGA STAFFORD Rep #:[id number] : 1950 74 From: Alejandro Roy DO PCP: Dr. Radha Rodas DO Status:[facility] Location: [place] [address] HPI - General General Date of Admission: [...] she underwent imaging by her PCP at [facility] that showed a large amount of stool and delayed gastric emptying on a gastric emptying study. From 2013 and 2021 she had random bouts of vomiting probably eating types of foods such as, chickpeas, fish, pepitas, black beans, pecans and walnuts. Her treatment up until 2021 was food avoidance. In July 2021 she had saw an food adviser at previous clinic and was diagnosed withfood protein induced enterocolitis syndrome. Treatment was recommended In May 2024 she had breast spinach salad and had the same reaction. Up until that time avoiding those other foods that cause the problem was successful. However because of this new episode she came in for consultation. Referred to hematology for elevated IgG levels US and elastography .12.24 hepatic measurement 17cm with fatty infiltration,stiffness measures 6.8kPa OV 5.19.25 pt reports that she has not eaten any foods that have caused an episode, but states thatshe is feeling "discouraged" with not having any answers or treatment for her symptoms. Pt reports she is having a bm every 2-3 days and takes Miralax as needed. [facility] Medical History Wears glasses Post-menopausal Alcohol use [...] of the right upper quadrant was performed. eGood S-shear waveelastography was performed for non-invasive assessment [...] mg PO QDAY 30 tabs 1RF 11/17/24 1062 Cosigner Signature (if applicable): CC: Dr. Radha Rodas, DO; Alejandro Friend, DO~ Signed [facility]06-18-2025 [facility] Medical Records Department [address] [place] [address] History Physical Exam 11/17/24 0649 MR#: [id number] Acct: [id number] Name: OLGA STAFFORD Rep #: [id number] : 1950 74 From: Alejandro Friend DO PCP: Dr. Radha Rodas, DO Status:[facility] Location: [place] [address] HPI - General General Date of Admission: [...] she underwent imaging by her PCP at [facility] that showed a large amount of stool and delayed gastric emptying on a gastric emptying study. From 2013 and 2021 she had random bouts of vomiting probably eating types of foods such as, chickpeas, fish, pepitas, black beans, pecans and walnuts. Her treatment up until 2021 was food avoidance. In July 2021 she had saw an food adviser at previous clinic and was diagnosed with [...] with fatty infiltration, stiffness measures 6.8kPa OV 5..25 pt reports that she has not eaten any foods that have caused an episode, but states that she is feeling "discouraged" with not having any answers or treatment for her symptoms. Pt reports she is having a bm every 2-3 days and takes Miralax as needed. [facility] Medical History Wears glasses Post-menopausal Alcohol use [...] normoactive bowel sounds, soft (more content not included)...[facility]06-18-2025 Consult note [facility] Medical Records Department [address] [place] [address] Pre-Anesthesia Evaluation 11/17/24623 MR#: [id number] Acct: [id number] Name: OLGA STAFFORD Rep #:[id number] : 1950 74 From: Usman Peguero MD PCP: Dr. Radha Rodas, DO Status:REG NDC Y Race: C Location: [place] [address] ASA Classification* ASA Classification ASA Classification: 2 [...] Procedure(s): EGD Anesthesia History Anesthesia History - glass checker: Anesthesia History - glass checker Hx Hospitalization No 11/15/24 13:17 Any Problems [...] take am of surgery PONV PONV - glass checker: PONV - glass checker Female Yes 11/15/24 13:17 HX of Motion [...] 11/17/24 05:55 Respiratory Assessment Respiratory Assessment - glass checker: Respiratory Tract Infection Hx - glass checker Hx Respiratory Tract Infection No 11/15/24 13:17 STOP Sleep Apnea STOP Sleep Apnea - glass checker: STOP Sleep Apnea - glass checker Hx Hypertension No 11/15/24 13:17 Hx Sleep [...] Tobacco Use History Tobacco Use History - glass checker: Tobacco Use History - glass checker Tobacco Use Smoking Status Never smoker 11/15/24 13:17 Hx Tobacco Use No 11/15/24 13:17 Years Smoking Packs Smoked per Day Smoking Cessation Date was within the last 15 years Hx Smoking Cessation Date Hx Smoking Cessation Counseling Hematologic Medial History Hematologic Hx - glass checker: Hematologic Medical Hx - bagger meat Hx of Blood Transfusion No 11/15/24 13:17 [...] confused, unrespo /Reproduction History /Reproductive History - glass checker: /Reproductive Hx- glass checker Hx Now Gestational Age (in weeks): EDC: [...] MD Cosigner Signature: Date CC: ~ Signed [facility]05-19-2025 Evaluation note* Diagnosis Onset Date Resolution Status [...] in adult acute November 17, 2024 5:24am [facility] Work Phone: 1(176) 584-319205-19-2025 Evaluation note* Diagnosis Onset Date Resolution Status [...] Hypergammaglobulinemia, unspecified resolved February 10, 2025 1:25pm [facility] Work Phone: 1(701) 878-625904-11-2025 Radiology Diagnostic study note [facility] Imaging Services [address] [place] [address] Bone Survey Comp(Axial&Append) MR#: [id number] Acct: [id number] Name: OLGA STAFFORD Rep #: [id number] : 1950 74 From: Margret Gutierrez MD PCP: Dr. Radha Rodas DO Status: REG CLI Study:Bone Survey Comp(Axial&Append) Date of Exam: 09/08/24 Exam# [id number] Ordering Dr: Kevin Santos MD EXAM: XR [...] as above. Otherwise, unremarkable exam. Reading [facility] CC: Dr. Meet Santos MD; Dr. Radha Rodas DO ~ Travograph Operator: Signed [facility]04-07-2025 Radiology Diagnostic study note [facility] Imaging Services [address] [place] [id number] ABD Limited w/ Elastography MR#: [id number] Acct: [id number] Name: OLGA STAFFORD Rep #: [id number] : 1950 F 74 From: Margret Stephens MD PCP: Dr. 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 Telepathysuison furniture S-shear waveelastography was performed for non-invasive assessment [...] (15kPa): Significant fibrosis / cirrhosis Reading Location: [id number] CC: Dr. Meet Santos MD; Dr. Radha Rodas DO ~ Travograph Operator: Signed [facility]2025 Evaluation note* Diagnosis Onset Date Resolution Status Admit Date Hypergammaglobulinemia, unspecified chronic August 26, 2024 2:46pm Food allergy acute October 18 8:27am Food [...] in adult acute November 17, 2024 5:24am [facility] Work Phone: 1(803) 461-134002-03-2025 Evaluation note* Diagnosis Onset Date Resolution Status Admit Date Food allergy acute July 9:18am Hypergammaglobulinemia, unspecified acute August 26, 2024 2:46pm [facility] Work Phone: 1(139) 738-252903-08-2022 NoteHNO ID: [id number] Author: Timur Quezada MD Service: ? Author [...] reaction to insect sting. FOOD ALLERGY: See [place] LAT[place]: The patient does not have a [...] only) - PAST SURGICAL HISTORY OF 2005 [facility], Dr. Shoemaker (normal) FAMILY HISTORY: Allergic rhinitis:no. Asthma: no. Eczema: no. Cystic fibrosis: no. Immunodeficiency: no. 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 Radha Rodas, DO Status:REG SDC Y Race: C Location: [place] [address] ASA Classification* ASA Classification ASA Classification: 2 [...] Procedure(s): EGD Anesthesia History Anesthesia History - glass checker: Anesthesia History - glass checker Hx Hospitalization No 11/15/24 13:17 Any Problems [...] take am of surgery PONV PONV - glass checker: PONV - glass checker Female Yes 11/15/24 13:17 HX of Motion [...] 11/17/24 05:55 Respiratory Assessment Respiratory Assessment - glass checker: Respiratory Tract Infection Hx - glass checker Hx Respiratory Tract Infection No 11/15/24 13:17 STOP Sleep Apnea STOP Sleep Apnea - glass checker: STOP Sleep Apnea - glass checker Hx Hypertension No 11/15/24 13:17 Hx Sleep [...] Tobacco Use History Tobacco Use History - glass checker: Tobacco Use History - glass checker Tobacco Use Smoking Status Never smoker 11/15/24 13:17 Hx Tobacco Use No 11/15/24 13:17 Years Smoking Packs Smoked per Day Smoking Cessation Date was within the last 15 years Hx Smoking Cessation Date Hx Smoking Cessation Counseling Hematologic Medial History Hematologic Hx - glass checker: Hematologic Medical Hx - bagger meat Hx of Blood Transfusion No 11/15/24 13:17 [...] confused, unrespo /Reproduction History /Reproductive History - glass checker: /Reproductive Hx- glass checker Hx Now Gestational Age (in weeks): EDC: [...] additional complaints, except as documented. 11/17/24 0629 <Electronically signed by Usman rockwell MD> Date _ Usman Das Signature: Date CC: ~ Signed [facility] Work Phone: Consult note Author Tomasz Hagan [facility] Note Date/Time November 17, 2024 7:12 am [facility] Medical Records Department [address] [place] [address] Anesthesia Postop Eval I 11/17/24710 MR#: [id number] Acct: [id number] Name: OLGA STAFFORD Rep #:[id number] : 1950 74 From: Tomasz Hagan PCP: Dr. Radha Rodas, DO Status:[facility] Y Race: C Location: [place] [address] Anesthesia: Postop Eval I Current Vital Signs [...] Tomasz Das Signature: Date CC: ~ Signed [facility] Work Phone: Evaluation noteNo assessment information available [facility] Work Phone: Evaluation note* Diagnosis Onset Date Resolution Status Pes anserine bursitis acute [facility] Work Phone: Evaluation note* Diagnosis Onset Date Resolution Status Pes anserine bursitis acute Urinary tract infection acut e [facility] Work Phone: Evaluation note* Diagnosis Onset Date Resolution Status Bug bite without infection a cute [facility] Work Phone: History and physical note Author Alejandro Friend [facility] Note Date/Time November 17, 2024 6:52 am [facility] Medical Records Department [address] [place] [address] History & Physical Exam 11/17/24 0649 MR#: [id number] Acct: [id number] Name: OLGA STAFFORD Rep #:[id number] : 1950 74 From: Alejandro Roy DO PCP: Dr. Radha Rodas DO Status:[facility] Location: [place] [address] HPI - General General Date of Admission: [...] she underwent imaging by her PCP at [facility] that showed a large amount of stool and delayed gastric emptying on a gastric emptying study. From 2013 and 2021 she had random bouts of vomiting probably eating types of foods such as, chickpeas, fish, pepitas, black beans, pecans and walnuts. Her treatment up until 2021 was food avoidance. In July 2021 she had saw an food adviser at previous clinic and was diagnosed withfood protein induced enterocolitis syndrome. Treatment was recommended In May 2024 she had breast spinach salad and had the same reaction. Up until that time avoiding those other foods that cause the problem was successful. However because of this new episode she came in for consultation. Referred to hematology for elevated IgG levels US and elastography 4.. hepatic measurement 17cm with fatty infiltration,stiffness measures 6.8kPa OV 5.19.25 pt reports that she has not eaten any foods that have caused an episode, but states that she is feeling "discouraged" with not having any answers or treatment for her symptoms. Pt reports she is having a bm every 2-3 days and takes Miralax as needed. [facility] Medical History Wears glasses Post-menopausal Alcohol use [...] eGFR 86 >60 mL/min/1.73m2 CKD-EPI Creatinine Equation (2021) BUN/CRE 23.1 H 10-20 RATIO T PROT [...] of the right upper quadrant was performed. eGood S-shear wave elastography was performed for non-invasive assessment of liver tissue stiffness. FINDINGS: Liver: Borderline slightly echogenic. 17.0 cm in length. Gallbladder: Suspected layering sludge. No visualized stones, wall thickening or pericholecystic fluid. Reportedly, sonographic Elwis's was negative. Biliary tree: A cystic area [...] Radha Rodas DO; Alejandro Roy DO~ Signed [facility] Work Phone: Reason for referral (narrative)No reason for referral information [facility] Work Phone: Summary Purpose Family History [...] October 26, 2013 1 2:53am Power of Manufacturing Weaver Yes October 26, 2013 12:53am Advance Directive Response Recorded Date/ Time Advance Directives Yes October 25 11:53pm Living Will Yes October 25, 2013 1 1:53pm Power of Manufacturing Weaver Yes October 25, 2013 11:53pm Advance Directive Response Recorded Date/ Time Advance Directives Yes October 26 12:53am Advance Directive Response Recorded Date/ Time Do you have a Healthcare Power of Manufacturing Weaver? No November 15, 2024 1:17pm Advance Directives Yes October 18 9:32am Advance Directive Response Recorded Date/ Time Advance Directives Yes October 18 9:32am Do you have a Healthcare Power of Manufacturing Weaver? No November 15, 2024 1:17pm Procedure Findings Note HNO ID: [id number] Author: Kumar Lin Service: General Surgery Author Type: Physician Type: Procedures Filed: 01/07/2019 4:51 PM Note Text: BEDSIDE PROCEDURE NOTE WOUND REPAIR Performed by: Juan Pablo Aguilar DO Authorized by: Lydia Fox MD Date/Start Time: 12/13/2018 4:30 PM Consent/[place] Protocol Written consent obtained: No, emergent procedure [...] PAIN, R/O DVT SCREENING Reason for Visit Antoine bullock Chief Complaint LEFT KNEE xray LLE PAIN, R/O DVT SCREENING CONCERN FOR UTI Reason for Visit Antoine bullock Urinary tract infection Chief Complaint BUG BITE [...] section and content) DATE CREATED AUTHOR 12/20/2018 [facility] DATE CREATED AUTHOR AUTHOR'S ORGANIZ ATION 01/07/2019 [facility] DATE CREATED AUTHOR AUTHOR'S ORGANIZ ATION 08/28/2021 [facility] DATE CREATED AUTHOR AUTHOR'S ORGANIZ ATION 04/05/2025 [facility] Goals (unrecognized section and content) Goals [...] St art: November 17, 2024 Dr. Alejandro oRy DO Attending Provider Active Start: November 17, [...] St art: November 17, 2024 Dr. Alejandro oRy DO Attending Provider Active Start: November 17, [...] BE BASED ON THE PRIMARY CLINICAL RECORDS. [facility] [employer] [facility]. provides no warranty or guarantee of the accuracy or completeness of information in this document.
== END | disposition home or self-care (01) ==
PROVIDERS: PCP Family Medicine; Referring Provider Nurse Practitioner Family; Visit Provider Nurse Practitioner Family
DX: Z12.31 Encounter for screening mammogram for malignant neoplasm of breast (principal)
CPT/HCPCS: 77063; 77067